=== PATIENT | female | born 1940 | race Caucasian/White ===

== ENCOUNTER → 2018-01-13 03:02 | Outpatient (CLI) | payer MEDICARE, MEDICAID, SELFPAY ==
[2018-01-13 10:33] LABS: INR 2.8 (1.0-3.5); Prothrombin Time 26.8 sec (9.3-10.8)
[2018-01-13 11:37] LABS: Hemoglobin A1C 7.9 % (4.5-6.2)
[2018-01-13 11:47] LABS: TSH (W/Ref FT4) 3.25 uIU/mL (0.358-3.74)
== END ==
PROVIDERS: PCP Family Medicine; Visit Provider Family Medicine
DX: E11.9 Type 2 diabetes mellitus without complications (principal); R94.6 Abnormal results of thyroid function studies; I48.91 Unspecified atrial fibrillation; Z79.01 Long term (current) use of anticoagulants
CPT/HCPCS: 36415; 83036; 84443; 85610

== ENCOUNTER → 2018-01-27 03:41 | Outpatient (CLI) | payer MEDICARE, MEDICAID, SELFPAY ==
[2018-01-27 10:52] LABS: INR 2.5 (1.0-3.5); Prothrombin Time 23.9 sec (9.3-10.8)
== END ==
PROVIDERS: PCP Family Medicine; Visit Provider Family Medicine
DX: I48.91 Unspecified atrial fibrillation (principal); Z79.01 Long term (current) use of anticoagulants
CPT/HCPCS: 36415; 85610

== ENCOUNTER 2018-02-03 01:19 | Outpatient (CLI) | payer MEDICARE, MEDICAID, SELFPAY ==
--- NOTE | 2018-02-03 15:20 | DI.DEXA_ITS ---
SYMPTOMS/DIAGNOSIS: [facility], [facility], Z00.00, [facility], Z78.0 DEXA SCAN: DEXA scan was performed according to the usual protocol. The findings for the lumbar spine scan are a T score of -2.9. Previous examination of April 2015 showed a lumbar T score of -2.7. Left hip scanning shows a T score of -2.2 with left femoral neck T score of - 2.4. Previous examination of April 2015 showed left hip T score of -2.0. Left forearm scanning shows a T score of -2.6. Previous examination of April 2015 showed a forearm T score of -2.7. CONCLUSION: Findings consistent with osteoporosis. The lateral vertebral scanogram shows no definite vertebral compression fracture.
== END 2018-02-03 01:39 ==
PROVIDERS: PCP Family Medicine; Visit Provider Family Medicine
DX: M81.0 Age-related osteoporosis without current pathological fracture (principal); Z78.0 Asymptomatic menopausal state
CPT/HCPCS: 77080

== ENCOUNTER 2018-02-24 02:03 | Outpatient (CLI) | payer MEDICARE, MEDICAID, SELFPAY ==
[2018-02-24 10:55] LABS: INR 1.8 (1.0-3.5); Prothrombin Time 16.9 sec (9.3-10.8)
== END 2018-02-24 02:23 ==
PROVIDERS: PCP Family Medicine; Visit Provider Family Medicine
DX: I48.91 Unspecified atrial fibrillation (principal); Z79.01 Long term (current) use of anticoagulants
CPT/HCPCS: 36415; 85610

== ENCOUNTER 2018-03-24 11:13 | Outpatient (CLI) | payer MEDICARE, MEDICAID, SELFPAY ==
[2018-03-24 11:50] LABS: INR 2.6 (1.0-3.5); Prothrombin Time 24.7 sec (9.3-10.8)
== END 2018-03-24 11:33 ==
LOC: LBO 03-25 11:32 → NCHCN 03-25 15:04
PROVIDERS: PCP Family Medicine; Visit Provider Family Medicine
DX: I48.91 Unspecified atrial fibrillation (principal); Z79.01 Long term (current) use of anticoagulants
CPT/HCPCS: 36415; 85610

== ENCOUNTER 2018-04-27 01:46 | Outpatient (CLI) | payer MEDICARE, MEDICAID, SELFPAY ==
[2018-04-27 10:00] LABS: INR 1.6 (1.0-3.5); Prothrombin Time 15.5 sec (9.3-10.8)
== END 2018-04-27 02:06 ==
PROVIDERS: PCP Family Medicine; Visit Provider Family Medicine
DX: I48.91 Unspecified atrial fibrillation (principal); Z79.01 Long term (current) use of anticoagulants
CPT/HCPCS: 36415; 85610

== ENCOUNTER 2018-05-04 09:58 | Outpatient (CLI) | payer MEDICARE, MEDICAID, SELFPAY ==
[2018-05-04 11:17] LABS: INR 1.8 (1.0-3.5); Prothrombin Time 17.1 sec (9.3-10.8)
== END 2018-05-04 10:18 ==
PROVIDERS: PCP Family Medicine; Visit Provider Family Medicine
DX: I48.91 Unspecified atrial fibrillation (principal); Z79.01 Long term (current) use of anticoagulants
CPT/HCPCS: 36415; 85610

== ENCOUNTER 2018-05-11 02:24 | Outpatient (CLI) | payer MEDICARE, MEDICAID, SELFPAY ==
[2018-05-11 10:41] LABS: INR 1.7 (1.0-3.5); Prothrombin Time 16.5 sec (9.3-10.8)
== END 2018-05-11 02:44 ==
PROVIDERS: PCP Family Medicine; Visit Provider Family Medicine
DX: I48.91 Unspecified atrial fibrillation (principal); Z79.01 Long term (current) use of anticoagulants
CPT/HCPCS: 36415; 85610

== ENCOUNTER 2018-05-17 01:27 | Outpatient (CLI) | payer MEDICARE, MEDICAID, SELFPAY ==
[2018-05-17 10:15] LABS: INR 1.7 (1.0-3.5); Prothrombin Time 16.7 sec (9.3-11.0)
== END 2018-05-17 01:47 ==
PROVIDERS: PCP Family Medicine; Visit Provider Family Medicine
DX: I48.91 Unspecified atrial fibrillation (principal); Z79.01 Long term (current) use of anticoagulants
CPT/HCPCS: 36415; 85610

== ENCOUNTER 2018-05-25 01:11 | Outpatient (CLI) | payer MEDICARE, MEDICAID, SELFPAY ==
[2018-05-25 10:24] LABS: INR 2.9 (1.0-3.5)
== END 2018-05-25 01:31 ==
PROVIDERS: PCP Family Medicine; Visit Provider Family Medicine
DX: I48.91 Unspecified atrial fibrillation (principal); Z79.01 Long term (current) use of anticoagulants
CPT/HCPCS: 36415; 85610

== ENCOUNTER 2018-06-06 00:15 | Outpatient (CLI) | payer MEDICARE, MEDICAID, SELFPAY ==
[2018-06-06 10:38] LABS: INR 2.8 (0.9-1.1); Prothrombin Time 27.9 sec (9.3-11.0)
== END 2018-06-06 00:35 ==
PROVIDERS: PCP Family Medicine; Visit Provider Family Medicine
DX: I48.91 Unspecified atrial fibrillation (principal); Z79.01 Long term (current) use of anticoagulants
CPT/HCPCS: 36415; 85610

== ENCOUNTER 2018-06-15 02:28 | Outpatient (CLI) | payer MEDICARE, MEDICAID, SELFPAY ==
[2018-06-15 11:48] LABS: INR 3.1 (0.9-1.1); Prothrombin Time 31.5 sec (9.3-11.0)
== END 2018-06-15 02:48 ==
PROVIDERS: PCP Family Medicine; Visit Provider Family Medicine
DX: I48.91 Unspecified atrial fibrillation (principal); Z79.01 Long term (current) use of anticoagulants
CPT/HCPCS: 36415; 85610

== ENCOUNTER 2018-07-12 00:08 | Outpatient (CLI) | payer MEDICARE, MEDICAID, SELFPAY ==
[2018-07-12 10:16] LABS: INR 2.4 (0.9-1.1); Prothrombin Time 23.8 sec (9.3-11.0)
== END 2018-07-12 00:28 ==
PROVIDERS: PCP Family Medicine; Visit Provider Family Medicine
DX: I48.91 Unspecified atrial fibrillation (principal); Z79.01 Long term (current) use of anticoagulants
CPT/HCPCS: 36415; 85610

== ENCOUNTER 2018-07-19 00:08 | Outpatient (CLI) | payer MEDICARE, MEDICAID, SELFPAY ==
[2018-07-19 10:21] LABS: INR 2.6 (0.9-1.1); Prothrombin Time 25.9 sec (9.3-11.0)
== END 2018-07-19 00:28 ==
PROVIDERS: PCP Family Medicine; Visit Provider Family Medicine
DX: I48.91 Unspecified atrial fibrillation (principal); Z79.01 Long term (current) use of anticoagulants
CPT/HCPCS: 36415; 85610

== ENCOUNTER 2018-08-17 07:05 | Outpatient (CLI) | payer MEDICARE, MEDICAID, SELFPAY ==
[2018-08-17 08:45] LABS: INR 2.6 (0.9-1.1); Prothrombin Time 25.8 sec (9.3-11.0)
[2018-08-17 09:17] LABS: Hemoglobin A1C 6.1 % (4.5-6.2)
[2018-08-17 15:28] LABS: Anion Gap 11.8 mmol/L (3-11); BUN 24 mg/dL (7-18); CO2 24.2 mmol/L (21.0-32.0); Calcium 9.1 mg/dL (8.5-10.1); Chloride 101 mmol/L (98-107); Estimated GFR 47.91 (mL/min/1.73m2); Glucose 90 mg/dL (70-100); Potassium 3.7 mmol/L (3.5-5.1); Sodium 137 mmol/L (136-145)
== END 2018-08-17 07:25 ==
PROVIDERS: PCP Family Medicine; Visit Provider Family Medicine
DX: I10 Essential (primary) hypertension (principal); E11.9 Type 2 diabetes mellitus without complications; I48.91 Unspecified atrial fibrillation; Z79.01 Long term (current) use of anticoagulants
CPT/HCPCS: 36415; 80048; 83036; 83735; 85610

== ENCOUNTER 2018-08-27 16:46 | Outpatient (REF) | payer MEDICARE, MEDICAID, SELFPAY ==
[2018-08-27 19:44] LABS: COMMENT (LAB VIEW ONLY) 58.94 mg/dL; Microalb ug/mg Crea 33.9 ug/mg Cr
== END 2018-08-27 17:06 ==
LOC: NCHCN 16:46
PROVIDERS: PCP Family Medicine; Visit Provider Family Medicine
DX: E11.9 Type 2 diabetes mellitus without complications (principal)
CPT/HCPCS: 82043; 82570

== ENCOUNTER 2018-09-23 01:57 | Outpatient (CLI) | payer MEDICARE, MEDICAID, SELFPAY ==
[2018-09-23 10:46] LABS: INR 3.3 (0.9-1.1)
[2018-09-23 10:50] LABS: Anion Gap 10.7 mmol/L (3-11); BUN 27 mg/dL (7-18); CO2 26.3 mmol/L (21.0-32.0); CREATININE 0.88 mg/dL (0.55-1.02); Calcium 8.5 mg/dL (8.5-10.1); Chloride 104 mmol/L (98-107); Glucose 95 mg/dL (70-100); Potassium 3.8 mmol/L (3.5-5.1); Sodium 141 mmol/L (136-145)
== END 2018-09-23 02:17 ==
PROVIDERS: PCP Family Medicine; Visit Provider Family Medicine
DX: E11.9 Type 2 diabetes mellitus without complications (principal); I10 Essential (primary) hypertension; I48.91 Unspecified atrial fibrillation; Z79.01 Long term (current) use of anticoagulants
CPT/HCPCS: 36415; 80048; 85610

== ENCOUNTER 2018-10-23 01:15 | Outpatient (CLI) | payer MEDICARE, MEDICAID, SELFPAY ==
[2018-10-23 10:56] LABS: INR 2.3 (0.9-1.1); Prothrombin Time 23.5 sec (9.3-11.0)
== END 2018-10-23 01:35 ==
PROVIDERS: PCP Family Medicine; Visit Provider Family Medicine
DX: I48.91 Unspecified atrial fibrillation (principal); Z79.01 Long term (current) use of anticoagulants
CPT/HCPCS: 36415; 85610

== ENCOUNTER 2018-11-20 09:15 | Outpatient (CLI) | payer MEDICARE, MEDICAID, SELFPAY ==
[2018-11-20 11:34] LABS: INR 2.4 (0.9-1.1); Prothrombin Time 24.4 sec (9.3-11.0)
== END 2018-11-20 09:35 ==
PROVIDERS: PCP Family Medicine; Visit Provider Family Medicine
DX: I48.91 Unspecified atrial fibrillation (principal); Z79.01 Long term (current) use of anticoagulants
CPT/HCPCS: 36415; 85610

== ENCOUNTER 2018-12-17 01:56 | Outpatient (CLI) | payer MEDICARE, MEDICAID, SELFPAY ==
[2018-12-17 10:13] LABS: INR 3.1 (0.9-1.1); Prothrombin Time 31.7 sec (9.3-11.0)
== END 2018-12-17 02:16 ==
PROVIDERS: PCP Family Medicine; Visit Provider Family Medicine
DX: I48.91 Unspecified atrial fibrillation (principal); Z79.01 Long term (current) use of anticoagulants
CPT/HCPCS: 36415; 85610

== ENCOUNTER 2019-01-22 03:54 | Outpatient (CLI) | payer MEDICARE, MEDICAID, SELFPAY ==
[2019-01-22 11:16] LABS: INR 3.2 (0.9-1.1); Prothrombin Time 31.9 sec (9.3-11.0)
== END 2019-01-22 04:14 ==
PROVIDERS: PCP Family Medicine; Visit Provider Family Medicine
DX: I48.91 Unspecified atrial fibrillation (principal); Z79.01 Long term (current) use of anticoagulants
CPT/HCPCS: 36415; 85610

== ENCOUNTER 2019-02-18 01:32 | Outpatient (CLI) | payer MEDICARE, MEDICAID, SELFPAY ==
[2019-02-18 10:22] LABS: INR 3.7 (0.9-1.1); Prothrombin Time 37.7 sec (9.3-11.0)
== END 2019-02-18 01:52 ==
PROVIDERS: PCP Family Medicine; Visit Provider Family Medicine
DX: I48.91 Unspecified atrial fibrillation (principal); Z79.01 Long term (current) use of anticoagulants
CPT/HCPCS: 36415; 85610

== ENCOUNTER 2019-03-04 01:24 | Outpatient (CLI) | payer MEDICARE, MEDICAID, SELFPAY ==
[2019-03-04 10:34] LABS: INR 3.6 (0.9-1.1)
== END 2019-03-04 01:44 ==
PROVIDERS: PCP Family Medicine; Visit Provider Family Medicine
DX: I48.91 Unspecified atrial fibrillation (principal); Z79.01 Long term (current) use of anticoagulants
CPT/HCPCS: 36415; 85610

== ENCOUNTER 2019-03-18 01:22 | Outpatient (CLI) | payer MEDICARE, MEDICAID, SELFPAY ==
[2019-03-18 10:33] LABS: Prothrombin Time 39.7 sec (9.3-11.0)
[2019-03-18 10:59] LABS: INR 4.1 (0.9-1.1)
== END 2019-03-18 01:42 ==
PROVIDERS: PCP Family Medicine; Visit Provider Family Medicine
DX: I48.91 Unspecified atrial fibrillation (principal); Z79.01 Long term (current) use of anticoagulants
CPT/HCPCS: 36415; 85610

== ENCOUNTER 2019-03-25 01:43 | Outpatient (CLI) | payer MEDICARE, MEDICAID, SELFPAY ==
[2019-03-25 10:44] LABS: INR 2.4 (0.9-1.1); Prothrombin Time 23.3 sec (9.3-11.0)
== END 2019-03-25 02:03 ==
PROVIDERS: PCP Family Medicine; Visit Provider Family Medicine
DX: I48.91 Unspecified atrial fibrillation (principal); Z79.01 Long term (current) use of anticoagulants
CPT/HCPCS: 36415; 85610

== ENCOUNTER 2019-04-07 14:15 | Outpatient (CLI) | payer MEDICARE, MEDICAID, SELFPAY ==
[2019-04-07 14:47] LABS: INR 2.8 (0.9-1.1)
== END 2019-04-07 14:35 ==
PROVIDERS: PCP Family Medicine; Visit Provider Family Medicine
DX: I48.91 Unspecified atrial fibrillation (principal); Z79.01 Long term (current) use of anticoagulants
CPT/HCPCS: 36415; 85610

== ENCOUNTER 2019-05-07 01:30 | Outpatient (CLI) | payer MEDICARE, MEDICAID, SELFPAY ==
[2019-05-07 10:47] LABS: Prothrombin Time 29.3 sec (9.3-11.0)
== END 2019-05-07 01:50 ==
PROVIDERS: PCP Family Medicine; Visit Provider Family Medicine
DX: I48.91 Unspecified atrial fibrillation (principal); Z79.01 Long term (current) use of anticoagulants
CPT/HCPCS: 36415; 85610

== ENCOUNTER 2019-06-04 01:52 | Outpatient (CLI) | payer MEDICARE, MEDICAID, SELFPAY ==
[2019-06-04 11:51] LABS: Prothrombin Time 40.9 sec (9.3-11.0)
[2019-06-04 12:53] LABS: INR 4.2 (0.9-1.1)
== END 2019-06-04 02:12 ==
PROVIDERS: PCP Family Medicine; Visit Provider Family Medicine
DX: I48.91 Unspecified atrial fibrillation (principal); Z79.01 Long term (current) use of anticoagulants
CPT/HCPCS: 36415; 85610

== ENCOUNTER 2019-06-10 14:58 | Outpatient (CLI) | payer MEDICARE, MEDICAID, SELFPAY ==
[2019-06-10 15:40] LABS: Prothrombin Time 44.6 sec (9.3-11.0)
[2019-06-10 15:44] LABS: INR 4.6 (0.9-1.1)
== END 2019-06-10 15:18 ==
PROVIDERS: PCP Family Medicine; Visit Provider Family Medicine
DX: I48.91 Unspecified atrial fibrillation (principal); Z79.01 Long term (current) use of anticoagulants
CPT/HCPCS: 36415; 85610

== ENCOUNTER 2019-06-18 11:36 | Outpatient (CLI) | payer MEDICARE, MEDICAID, SELFPAY ==
[2019-06-18 12:17] LABS: INR 2.6 (0.9-1.1); Prothrombin Time 25.2 sec (9.3-11.0)
== END 2019-06-18 11:56 ==
PROVIDERS: PCP Family Medicine; Visit Provider Family Medicine
DX: I48.91 Unspecified atrial fibrillation (principal); Z79.01 Long term (current) use of anticoagulants
CPT/HCPCS: 36415; 85610

== ENCOUNTER 2019-07-05 15:28 | Outpatient (REF) | payer MEDICARE, MEDICAID, SELFPAY ==
[2019-07-05 18:27] LABS: COMMENT (LAB VIEW ONLY) 23.86 mg/dL; Microalb ug/mg Crea 34.8 ug/mg Cr
== END 2019-07-05 15:48 ==
LOC: NCHCN 15:28
PROVIDERS: PCP Family Medicine; Visit Provider Family Medicine
DX: E11.9 Type 2 diabetes mellitus without complications (principal)
CPT/HCPCS: 82043; 82570

== ENCOUNTER 2019-07-13 08:18 | Outpatient (CLI) | payer MEDICARE, MEDICAID, SELFPAY ==
[2019-07-13 10:36] LABS: INR 1.6 (0.9-1.1); Prothrombin Time 15.9 sec (9.3-11.0)
== END 2019-07-13 08:38 ==
PROVIDERS: PCP Family Medicine; Visit Provider Family Medicine
DX: I48.91 Unspecified atrial fibrillation (principal); Z79.01 Long term (current) use of anticoagulants
CPT/HCPCS: 36415; 85610

== ENCOUNTER 2019-07-20 02:20 | Outpatient (CLI) | payer MEDICARE, MEDICAID, SELFPAY ==
[2019-07-20 11:22] LABS: INR 2.6 (0.9-1.1); Prothrombin Time 25.7 sec (9.3-11.0)
== END 2019-07-20 02:40 ==
PROVIDERS: PCP Family Medicine; Visit Provider Family Medicine
DX: I48.91 Unspecified atrial fibrillation (principal); Z79.01 Long term (current) use of anticoagulants
CPT/HCPCS: 36415; 85610

== ENCOUNTER 2019-08-10 01:50 | Outpatient (CLI) | payer MEDICARE, MEDICAID, SELFPAY ==
[2019-08-10 10:16] LABS: Prothrombin Time 40.2 sec (9.3-11.0)
[2019-08-10 10:48] LABS: INR 4.1 (0.9-1.1)
== END 2019-08-10 02:10 ==
PROVIDERS: PCP Family Medicine; Visit Provider Family Medicine
DX: I48.91 Unspecified atrial fibrillation (principal); Z79.01 Long term (current) use of anticoagulants
CPT/HCPCS: 36415; 85610

== ENCOUNTER 2019-08-17 14:30 | Outpatient (CLI) | payer MEDICARE, MEDICAID, SELFPAY ==
[2019-08-17 10:06] LABS: INR 2.3 (0.9-1.1)
== END 2019-08-17 14:50 ==
PROVIDERS: PCP Family Medicine; Visit Provider Family Medicine
DX: I48.91 Unspecified atrial fibrillation (principal); Z79.01 Long term (current) use of anticoagulants
CPT/HCPCS: 36415; 85610

== ENCOUNTER 2019-08-23 11:49 | Outpatient (CLI) | payer MEDICARE, MEDICAID, SELFPAY ==
[2019-08-23 14:19] LABS: INR 1.6 (0.9-1.1); Prothrombin Time 15.6 sec (9.3-11.0)
== END 2019-08-23 12:09 ==
PROVIDERS: PCP Family Medicine; Visit Provider Family Medicine
DX: I48.91 Unspecified atrial fibrillation (principal); Z79.01 Long term (current) use of anticoagulants
CPT/HCPCS: 36415; 85610

== ENCOUNTER 2019-08-29 10:38 | Outpatient (CLI) | payer MEDICARE, MEDICAID, SELFPAY ==
[2019-08-29 11:09] LABS: INR 2.2 (0.9-1.1); Prothrombin Time 21.4 sec (9.3-11.0)
== END 2019-08-29 10:58 ==
PROVIDERS: PCP Family Medicine; Visit Provider Family Medicine
DX: I48.91 Unspecified atrial fibrillation (principal); Z79.01 Long term (current) use of anticoagulants
CPT/HCPCS: 36415; 85610

== ENCOUNTER 2019-09-25 00:35 | Emergency (ER) | payer MEDICARE, MEDICAID, SELFPAY ==
[2019-09-25 00:36] VITALS: BP 156/113; PULSE 63; RESP 16; TEMP 36.6; O2SAT 98
--- NOTE | 2019-09-25 00:40 | W.ED.GENAD ---
Discharge Plan Disposition Patient Disposition: HOME Condition: Stable Discharge Details Chief Complaint: Epistaxis Clinical Impression: Epistaxis Primary Care Provider: Mell Cueto ED Provider: Steve Paula Discharge Instructions Instructions: Nosebleed (ED) Additional Instructions: hold your next 2 doses of coumadin. Return Friday for removal of packing and recheck of your INR if you have increased bleeding or feel chest pain, difficulty breathing or lightheaded return to the emergency department Medical Decision Making 79 yo female with hx of afib on coumadin comes in with right sided nose bleed. She states it started spontaneously this morning and it stopped but then spontaneously started again this evening. Denies dyspnea, trauma, chest pain, lightheadedness. She has slow oozing of blood from the right nare without obvious source. Unable to stop with pressure and afrin so rhino rocket placed with success uneventfully. Suspect anterior bleed, will check INR and monitor. INR is over 4, remains stable without any bleeding. Will have her hold next 2 doses of coumadin and return Friday morning for removal of rhino rocket and recheck of inr Differential Diagnosis Differential Diagnosis: anterior vs posterior epistaxis HPI General Mode of arrival: EMS. Date/Time Provider Initiated Documentation: 09/25/19 00:39. Limitations to Documentation: no limitations. Information obtained by: patient. History of Present Illness 79 year old F presents to the emergency department with the chief complaint of nose bleed, described as moderate, and it has been constant. No relieving factors improve symptom(s), No exacerbating factors reported . Patient did receive the following treatments prior to arrival, none General Stated Complaint: Epistaxis SANDRA: 3 Review of Systems All systems reviewed & are unremarkable except as noted in HPI and below Constitutional Constitutional: Denies chills and Denies fever(s) Cardiovascular Cardiovascular: Denies chest pain and Denies dyspnea Respiratory Respiratory: Denies cough and Denies dyspnea Gastrointestinal Gastrointestinal: Denies abdominal pain, Denies nausea and Denies vomiting Musculoskeletal Musculoskeletal: Denies joint swelling ON LICENSE OF [facility] Social History Smoking/Tobacco Use Status: Never Drug use: Never Substance use type: does not use Exam Const General: no acute distress Orientation: alert HENMT Head: normal to inspection Ears: external ears normal General nose exam: no nasal polyps Mouth: moist mucous membranes Eyes General: appearance normal, both eyes and all related structures Neck Neck: normal visual inspection Resp Effort & Inspection: normal respiratory effort and able to speak in complete sentences Cardio Rate: regular rate Skin General skin exam: no rashes or lesions noted Neuro General: patient alert and patient oriented x3 Extrem General: normal to inspection Psych Mental Status: mental status grossly normal Course Vital Signs Vital signs: Vital Signs Temperature 36.6 C 09/25/19 00:36 Pulse 63 09/25/19 00:36 Respiratory Rate 16 09/25/19 00:36 Blood Pressure 156/113 H 09/25/19 00:36 Pulse Oximetry 98 09/25/19 00:36 Temperature 36.6 C 09/25/19 00:36 Temperature Source Temporal Artery Scan 09/25/19 00:36 Pulse 63 09/25/19 00:36 Respiratory Rate 16 09/25/19 00:36 Respiratory Effort 09/25/19 00:39 Blood Pressure 156/113 H 09/25/19 00:36 Blood Pressure Position Sitting 09/25/19 00:36 Pulse Oximetry 98 09/25/19 00:36 Procedures Epistaxis Control Time Out Performed: Yes Nostril: right Direct Inspection: yes Clots Removed by: blowing nose Cautery Used: none Device Inserted: other (rhino rocket 7.5) Patient Tolerated Procedure: well
[2019-09-25 00:47] LABS: HCT 39.5 % (36.0-46.0); HGB 12.7 g/dL (12.0-15.5); Mean Corp. HGB Concentration 32.2 g/dL (32.0-36.0); Mean Corpuscular Hemoglobin 28.7 pg (27.0-33.0); Mean Corpuscular Volume 89.4 fL (80-95); Mean Platelet Volume 9.9 fL (8.0-11.0); Platelet Count 285 x1000/uL (130-400); RBC 4.42 m/cumm (4.00-5.20); RBC Distribution Width 14.3 % (11.7-14.6); White Blood Cell Count 9.98 k/cumm (4.4-10.8)
[2019-09-25 01:13] LABS: Prothrombin Time 42.7 sec (9.3-11.0)
[2019-09-25 01:15] LABS: INR 4.4 (0.9-1.1)
== END 2019-09-25 01:40 | disposition home or self-care (01) ==
PROVIDERS: Emergency Provider Emergency Medicine; PCP Family Medicine
DX: R04.0 Epistaxis (principal); I48.91 Unspecified atrial fibrillation; Z79.01 Long term (current) use of anticoagulants
CPT/HCPCS: 30901; 85027; 99283; 85610

== ENCOUNTER 2019-09-27 10:04 | Emergency (ER) | payer MEDICARE, MEDICAID, SELFPAY ==
[2019-09-27 10:10] VITALS: BP 127/75; PULSE 67; RESP 16; TEMP 36.4
--- NOTE | 2019-09-27 10:30 | ED.GENADUL_ITS ---
Discharge Plan Disposition Patient Disposition: HOME Condition: Stable Discharge Details Chief Complaint: Recheck Clinical Impression: Epistaxis, Elevated INR Primary Care Provider: Mell Cueto ED Provider: Merary Watson Home Meds and New Rx's Prescriptions: Continued albuterol sulfate [ProAir HFA] 90 mcg/actuation Hfa Aerosol Inhaler 2 puff inhalation QID RF: 0 fluticasone propion-salmeterol [Advair Diskus] 500-50 mcg/dose blister with device 1 inh INHALATION BID RF: 0 atenolol 50 mg tablet 25 mg PO QAM RF: 0 furosemide 80 mg tablet 80 mg PO QAM RF: 0 losartan 100 mg tablet 100 mg PO QAM RF: 0 cetirizine 10 mg tablet 10 mg PO QAM RF: 0 cholecalciferol (vitamin D3) [Vitamin D3] 25 mcg (1,000 unit) tablet 1,000 unit PO QAM RF: 0 atorvastatin [Lipitor] 10 mg Tablet 10 mg PO QPM RF: 0 potassium chloride 10 mEq tablet,ER particles/crystals 10 meq PO QAM RF: 0 zolpidem 5 mg tablet 5 mg PO HS RF: 0 warfarin 5 mg tablet 2.5 - 5 mg PO DIRECTED PRNRF: 0 glipizide 10 mg tablet extended release 24hr 10 mg PO QAM RF: 0 metformin 500 mg tablet extended release 24 hr 500 mg PO DAILY RF: 0 albuterol sulfate [Ventolin HFA] 90 mcg/actuation HFA aerosol inhaler INHALATION PRN PRNRF: 0 Levemir FlexTouch U-100 Insuln 100 unit/mL (3 mL) insulin pen SUBCUT HS RF: 0 (DME) pen needle, diabetic [BD Ultra-Fine Mini Pen Needle] 31 gauge x 3/16 needle MISCELLANEOUS RF: 0 magnesium oxide 400 mg magnesium Tablet 400 mg PO DAILY RF: 0 albuterol sulfate [Ventolin HFA] 90 mcg/actuation HFA aerosol inhaler 2 puff INHALATION Q6H RF: 0 fluticasone propionate [Flonase Allergy Relief] 50 mcg/actuation [place],Suspension 2 spray INTRANASAL DAILY PRNRF: 0 fluticasone propion-salmeterol [Advair Diskus] 500-50 mcg/dose blister with device 1 inh INHALATION BID RF: 0 mupirocin 2 % ointment 1 applic TOPICAL BID PRNRF: 0 alendronate 70 mg tablet 70 mg PO DIRECTED RF: 0 Discharge Instructions Instructions: Nosebleed (ED) Additional Instructions: Please return immediately to the emergency department if you develop any new or worsening symptoms (including, fever, redness of your nose, increasing pain in your nose, foul odor or discharge from around the packing, return of bleeding, if you begin to feel unwell, if your condition does not improve as expected, or if you become otherwise concerned. As we discussed it is extremely important that you return immediately to the emergency department should she develop . Please return to the emergency department on Friday for reevaluation for packing removal as we discussed. Please do not take your warfarin until you are seen in the emergency department on Friday as we discussed. It is extremely important that you call soon as possible to make an appointment to be seen in follow-up for this visit by your primary care doctor. Referrals: Mell Cueto MD [Primary Care Provider] - Bryan Mesa MD [[facility] STAFF PHYSICIAN] - Medical Decision Making Sushma Jones is an 79 y/o woman with h/o afib on coumadin, asthma, diabetes, HTN who presented to the emergency department for removal of nasal packing without complaint. On exam Pt is well and non-toxic appearing, no active bleeding or signs of infection. Exam/hx not c/w cellulitis, persistent bleeding, impending airway compromise, sepsis, toxic shock syndrome, other acute life threatening emergency. Concern for recurrence of bleeding if packing removed with elevated INR, will obtain labs. INR 3.9, therapeutic range for Pt 2.5-3.5. I discussed Pt presentation and results with Dr. Mesa of ENT over the phone, who recommended Pt not have packing removed today, recommends packing removal 09/28 in ED after re-check of INR with holding coumadin until that visit. Dr. Mesa recommends no abx at this time given no apparent infection and concern for possible contribution to elevated INR. I had a lengthy discussion with Patient regarding return to emergency department precautions, home care, and importance of outpatient follow-up and f/u here in 2 days for INR recheck and packing removal. I discussed antibiotic non-usage at this time and specific symptoms for which to return immediately to the emergency department. Pt verbalizes understanding of the plan and is amenable. Patient discharged to home with clear plan for outpatient follow-up. All questions were answered. Disposition decision was made weighing the risks and benefits of hospitalization versus outpatient treatment, the risk for further decompensation, and the patient's wishes. Medical Records Medical records reviewed: Yes I reviewed the patient's medical records. Lab Data Lab results reviewed: Yes I reviewed the patient's lab results. Labs: Laboratory Tests Range/Units 09/27/19 09/27/19 10:55 10:55 WBC (4.4-10.8) k/cumm 8.87 RBC (4.00-5.20) m/cumm 4.42 Hgb (12.0-15.5) g/dL 12.6 Hct (36.0-46.0) % 39.8 MCV (80-95) fL 90.0 MCH (27.0-33.0) pg 28.5 MCHC (32.0-36.0) g/dL 31.7 L RDW (11.7-14.6) % 14.4 Plt Count (130-400) x1000/uL 290 MPV (8.0-11.0) fL 9.8 PT (9.3-11.0) sec 37.4 H INR (0.9-1.1) 3.9 H HPI General Mode of arrival: ambulatory . Date/Time Provider Initiated Documentation: 09/27/19 10:07 . Limitations to Documentation: no limitations . Information obtained by: patient, RN notes reviewed and old records reviewed . HPI Narrative: Sushma Jones is an 79-year-old woman with history of diabetes, hypertension, atrial fibrillation on Coumadin, coronary artery disease, hyperlipidemia presenting to the emergency department for removing of nasal packing. Per patient and record review, patient was seen here 09/24 for epistaxis. Patient reports that onset of nosebleed was spontaneous without trauma or other known inciting factor. Patient had anterior nasal packing placed at that visit. Patient had elevated INR, was instructed to not take her Coumadin until being seen here on 09/26 for reevaluation and nasal packing removal. Patient reports that she has had no symptoms other than some discomfor t from packing since packing was placed. She denies any further nose bleeding, swallowing of blood, pain, fever, vomiting/diarrhea, numbness, weakness. Patient reports that she has been eating and drinking as usual and going about her daily activities as usual. Patient reports that she has not taken her Coumadin since being seen in the emergency department on 09/24. Related Data Home Medications Medication Instructions Recorded Confirmed Levemir FlexTouch U-100 Insuln unit SUBCUT HS 09/27/19 albuterol sulfate [ProAir HFA] 2 puff INHALATION QID 09/27/19 09/27/19 albuterol sulfate [Ventolin HFA] 2 puff INHALATION Q6H 09/27/19 09/27/19 albuterol sulfate [Ventolin HFA] puff INHALATION PRN PRN 09/27/19 alendronate 70 mg PO DIRECTED 09/27/19 09/27/19 atenolol 25 mg PO QAM 09/27/19 09/27/19 atorvastatin [Lipitor] 10 mg PO QPM 09/27/19 09/27/19 cetirizine 10 mg PO QAM 09/27/19 09/27/19 cholecalciferol (vitamin D3) 1,000 unit PO QAM 09/27/19 09/27/19 [Vitamin D3] fluticasone propion-salmeterol 1 inh INHALATION BID 09/27/19 09/27/19 [Advair Diskus] fluticasone propion-salmeterol 1 inh INHALATION BID 09/27/19 09/27/19 [Advair Diskus] fluticasone propionate [Flonase 2 spray INTRANASAL DAILY PRN 09/27/19 09/27/19 Allergy Relief] furosemide 80 mg PO QAM 09/27/19 09/27/19 glipizide 10 mg PO QAM 09/27/19 09/27/19 losartan 100 mg PO QAM 09/27/19 09/27/19 magnesium oxide 400 mg PO DAILY 09/27/19 09/27/19 metformin 500 mg PO DAILY 09/27/19 09/27/19 mupirocin 1 applic TOPICAL BID PRN 09/27/19 09/27/19 pen needle, diabetic [BD 09/27/19 09/27/19 Ultra-Fine Mini Pen Needle] potassium chloride 10 meq PO QAM 09/27/19 09/27/19 warfarin 2.5 - 5 mg PO DIRECTED PRN 09/27/19 09/27/19 zolpidem 5 mg PO HS 09/27/19 09/27/19 Allergies Allergy/AdvReac Type Severity Reaction Status Date / Time Penicillins AdvReac Unknown Unverified 09/27/19 10:23 General Stated Complaint: Recheck SANDRA: 4 Review of Systems Narrative: Constitutional: denies fevers Eyes: denies eye pain ENT: denies ear pain, sore throat, nosebleeds, reports mild aching at site of packing right nare Cardiovascular: denies chest pain Respiratory: denies SOB, cough GI: denies abdominal pain, vomiting, diarrhea : denies flank pain MSK: denies back pain, neck pain, arthralgias, myalgias Skin: denies rash Neuro: denies headaches, numbness, weakness PFSH Social History Smoking/Tobacco Use Status: Never Drug use: Never Substance use type: does not use Do you feel safe at home: Yes Do you feel safe in your relationship?: Yes Additional Social history: son lives nearby Exam Narrative Exam Narrative: Constitutional: well and [id number], pleasant, conversing normally HENT: head atraumatic/normocephalic/normal inspection, mucous membranes moist, no drooling or handling of secretions, packing in place right nare with scant dried blood, no discharge, no appreciable odor, no erythema of the nose or face Eyes: conjunctiva normal, sclera normal, pupils 3mm b/l Neck: no stridor, normal ROM, trachea midline Chest: normal inspection Resp: normal work of breathing, no respiratory distress Cardio: normal rate, normal rhythm Skin: warm, dry, normal color, no rash Neuro: alert, not altered, grossly non-focal, normal tone Ext: moving all extremities equally Psych: normal mood, normal affect, normal behavior Course Vital Signs Vital signs: Vital Signs Temperature 36.4 C L 09/27/19 10:10 Pulse 67 09/27/19 10:10 Respiratory Rate 16 09/27/19 10:10 Blood Pressure 127/75 09/27/19 10:10 Temperature 36.4 C L 09/27/19 10:10 Temperature Source Skin 09/27/19 10:10 Pulse 67 09/27/19 10:10 Respiratory Rate 16 09/27/19 10:10 Respiratory Effort 09/27/19 10:21 Blood Pressure 127/75 09/27/19 10:10 Blood Pressure Position Sitting 09/27/19 10:10 Oxygen Delivery Method Room Air 09/27/19 10:10 Oxygen Flow Rate 0 09/27/19 10:10 Pain Level 0 09/27/19 10:10
[2019-09-27 11:06] LABS: HCT 39.8 % (36.0-46.0); HGB 12.6 g/dL (12.0-15.5); Mean Corp. HGB Concentration 31.7 g/dL (32.0-36.0); Mean Corpuscular Hemoglobin 28.5 pg (27.0-33.0); Mean Platelet Volume 9.8 fL (8.0-11.0); Platelet Count 290 x1000/uL (130-400); RBC 4.42 m/cumm (4.00-5.20); RBC Distribution Width 14.4 % (11.7-14.6); White Blood Cell Count 8.87 k/cumm (4.4-10.8)
[2019-09-27 11:17] LABS: INR 3.9 (0.9-1.1); Prothrombin Time 37.4 sec (9.3-11.0)
== END 2019-09-27 11:50 | disposition home or self-care (01) ==
PROVIDERS: Emergency Provider Student in an Organized Health Care Education/Training Program; PCP Family Medicine
DX: R04.0 Epistaxis (principal); R79.1 Abnormal coagulation profile; I48.91 Unspecified atrial fibrillation; Z79.01 Long term (current) use of anticoagulants; I10 Essential (primary) hypertension; E11.9 Type 2 diabetes mellitus without complications; Z79.4 Long term (current) use of insulin
CPT/HCPCS: 36415; 85027; 99283; 85610

== ENCOUNTER 2019-09-29 11:26 | Emergency (ER) | payer MEDICARE, MEDICAID, SELFPAY ==
[2019-09-29 11:29] VITALS: BP 148/60; PULSE 81; TEMP 36.7; O2SAT 97
--- NOTE | 2019-09-29 12:03 | W.ED.GENAD ---
Discharge Plan Disposition Patient Disposition: HOME Condition: Stable Discharge Details Chief Complaint: GenMedical Clinical Impression: Encounter for removal of nasal packing Primary Care Provider: Mell Cueto ED Provider: Tab Kellogg Home Meds and New Rx's Prescriptions: No Action albuterol sulfate [ProAir HFA] 90 mcg/actuation Hfa Aerosol Inhaler 2 puff inhalation QID RF: 0 fluticasone propion-salmeterol [Advair Diskus] 500-50 mcg/dose blister with device 1 inh INHALATION BID RF: 0 atenolol 50 mg tablet 25 mg PO QAM RF: 0 furosemide 80 mg tablet 80 mg PO QAM RF: 0 losartan 100 mg tablet 100 mg PO QAM RF: 0 cetirizine 10 mg tablet 10 mg PO QAM RF: 0 cholecalciferol (vitamin D3) [Vitamin D3] 25 mcg (1,000 unit) tablet 1,000 unit PO QAM RF: 0 atorvastatin [Lipitor] 10 mg Tablet 10 mg PO QPM RF: 0 potassium chloride 10 mEq tablet,ER particles/crystals 10 meq PO QAM RF: 0 zolpidem 5 mg tablet 5 mg PO HS RF: 0 warfarin 5 mg tablet 2.5 - 5 mg PO DIRECTED PRNRF: 0 glipizide 10 mg tablet extended release 24hr 10 mg PO QAM RF: 0 metformin 500 mg tablet extended release 24 hr 500 mg PO DAILY RF: 0 albuterol sulfate [Ventolin HFA] 90 mcg/actuation HFA aerosol inhaler INHALATION PRN PRNRF: 0 Levemir FlexTouch U-100 Insuln 100 unit/mL (3 mL) insulin pen SUBCUT HS RF: 0 (DME) pen needle, diabetic [BD Ultra-Fine Mini Pen Needle] 31 gauge x 3/16 needle MISCELLANEOUS RF: 0 magnesium oxide 400 mg magnesium Tablet 400 mg PO DAILY RF: 0 albuterol sulfate [Ventolin HFA] 90 mcg/actuation HFA aerosol inhaler 2 puff INHALATION Q6H RF: 0 fluticasone propionate [Flonase Allergy Relief] 50 mcg/actuation [place],Suspension 2 spray INTRANASAL DAILY PRNRF: 0 fluticasone propion-salmeterol [Advair Diskus] 500-50 mcg/dose blister with device 1 inh INHALATION BID RF: 0 mupirocin 2 % ointment 1 applic TOPICAL BID PRNRF: 0 alendronate 70 mg tablet 70 mg PO DIRECTED RF: 0 Discharge Instructions Additional Instructions: Nasal packing was removed without difficulty. Your INR has come down which means that you should start taking your Coumadin as directed. I would like you to reach out to your primary care provider so that you may have your INR checked in the next few days to be sure it is then at an appropriate level. Please watch for new or worsening symptoms and return to the ER for any concerns Discharge Data Discharge Date/Time-TO BE ENTERED AT DEPARTURE: 09/29/19 13:07 Medical Decision Making Patient presents for nasal packing removal that was placed 2 days ago. She is currently asymptomatic. Her INR was supratherapeutic during her visit 2 days ago. Will repeat INR today and if appropriate will remove packing. Patient comfortable this plan INR resulted, will remove nasal packing Nasal packing removed without difficulty Patient observed in the ER for over 20 minutes, no bleeding. Patient has no additional questions or concerns and is comfortable discharge. She will begin taking her Coumadin once again and will reach out to her primary care provider later today or tomorrow to discuss outpatient INR testing in the next few days to be sure her INR is appropriate Medical Records Medical records reviewed: Yes I reviewed the patient's medical records. Lab Data Lab results reviewed: Yes I reviewed the patient's lab results. Lab results narrative: Laboratory Tests Range/Units 09/29/19 11:47 PT (9.3-11.0) sec 15.9 H D INR (0.9-1.1) 1.6 H D HPI General Mode of arrival: ambulatory. Date/Time Provider Initiated Documentation: 09/29/19 11:32. Limitations to Documentation: no limitations. Information obtained by: patient. HPI Narrative: 79-year-old female with history of asthma, hypertension, diabetes, atrial fibrillation and taking Coumadin who presents today to have her right nare nasal packing removed. She was seen in the ER 2 days ago, packing placed and reports being asymptomatic since that time. She has not taken her Coumadin since that time. At this time she has no additional concerns or complaints, just requesting that the packing be removed Related Data Home Medications Medication Instructions Recorded Confirmed Levemir FlexTouch U-100 Insuln unit SUBCUT HS 09/27/19 albuterol sulfate [ProAir HFA] 2 puff INHALATION QID 09/27/19 09/27/19 albuterol sulfate [Ventolin HFA] 2 puff INHALATION Q6H 09/27/19 09/27/19 albuterol sulfate [Ventolin HFA] puff INHALATION PRN PRN 09/27/19 alendronate 70 mg PO DIRECTED 09/27/19 09/27/19 atenolol 25 mg PO QAM 09/27/19 09/27/19 atorvastatin [Lipitor] 10 mg PO QPM 09/27/19 09/27/19 cetirizine 10 mg PO QAM 09/27/19 09/27/19 cholecalciferol (vitamin D3) 1,000 unit PO QAM 09/27/19 09/27/19 [Vitamin D3] fluticasone propion-salmeterol 1 inh INHALATION BID 09/27/19 09/27/19 [Advair Diskus] fluticasone propion-salmeterol 1 inh INHALATION BID 09/27/19 09/27/19 [Advair Diskus] fluticasone propionate [Flonase 2 spray INTRANASAL DAILY PRN 09/27/19 09/27/19 Allergy Relief] furosemide 80 mg PO QAM 09/27/19 09/27/19 glipizide 10 mg PO QAM 09/27/19 09/27/19 losartan 100 mg PO QAM 09/27/19 09/27/19 magnesium oxide 400 mg PO DAILY 09/27/19 09/27/19 metformin 500 mg PO DAILY 09/27/19 09/27/19 mupirocin 1 applic TOPICAL BID PRN 09/27/19 09/27/19 pen needle, diabetic [BD 09/27/19 09/27/19 Ultra-Fine Mini Pen Needle] potassium chloride 10 meq PO QAM 09/27/19 09/27/19 warfarin 2.5 - 5 mg PO DIRECTED PRN 09/27/19 09/27/19 zolpidem 5 mg PO HS 09/27/19 09/27/19 Allergies Allergy/AdvReac Type Severity Reaction Status Date / Time Penicillins AdvReac Unknown Unverified 09/29/19 11:35 General Stated Complaint: GenMedical SANDRA: 4 Review of Systems Constitutional Constitutional: Denies fever(s) and Denies headache(s) ENT Ears, Nose, Mouth, and Throat: Denies headache(s) Cardiovascular Cardiovascular: Denies chest pain and Denies dyspnea Respiratory Respiratory: Denies cough and Denies dyspnea Integumentary/Breasts Skin/Breast: Denies rash Neurologic Neurologic: Denies headache(s) Hematologic/Lymphatic Hematologic/Lymphatic: Reports easy bruising [facility] Social History Smoking/Tobacco Use Status: Never Alcohol Intake: current Alcohol Intake frequency: holidays/special occasions only Drug use: Never Substance use type: does not use Do you feel safe at home: Yes Do you feel safe in your relationship?: Yes Additional Social history: son lives nearby Exam Const General: cooperative, healthy appearing, comfortable and no acute distress Orientation: alert and awake [facility] Head: normal to inspection, normocephalic and atraumatic General nose exam: other (Nasal packing right nare. No bleeding. Left nare unremarkable) Mouth: moist mucous membranes Throat: posterior oropharynx normal Eyes Conjunctivae: conjunctivae normal Neck Neck: normal visual inspection, trachea midline and supple Resp Effort & Inspection: normal respiratory effort and able to speak in complete sentences Auscultation: clear to auscultation bilaterally Cardio Rate: regular rate Rhythm: regular rhythm Skin General skin exam: no rashes or lesions noted Neuro General: patient alert, patient awake, moves all extremities and no focal motor deficits Sensory Exam: no sensory deficits noted Psych Appearance: grossly normal Mental Status: mental status grossly normal Course Vital Signs Vital signs: Vital Signs Temperature 36.7 C 09/29/19 11:29 Pulse 81 09/29/19 11:29 Blood Pressure 148/60 H 09/29/19 11:29 Pulse Oximetry 97 09/29/19 11:29 Temperature 36.7 C 09/29/19 11:29 Temperature Source Temporal Artery Scan 09/29/19 11:29 Pulse 81 09/29/19 11:29 Respiratory Effort Non-Labored 09/29/19 11:33 Respiratory Depth Normal 09/29/19 11:33 Respiratory Pattern Normal 09/29/19 11:33 Blood Pressure 148/60 H 09/29/19 11:29 Blood Pressure Position Sitting 09/29/19 11:29 Pulse Oximetry 97 09/29/19 11:29 Oxygen Delivery Method Room Air 09/29/19 11:29 Oxygen Flow Rate 0 09/29/19 11:29 Pain Level 0 09/29/19 11:29
[2019-09-29 12:05] LABS: INR 1.6 (0.9-1.1); Prothrombin Time 15.9 sec (9.3-11.0)
== END 2019-09-29 13:07 | disposition home or self-care (01) ==
PROVIDERS: Emergency Provider Physician Assistant; PCP Family Medicine
DX: Z48.00 Encounter for change or removal of nonsurgical wound dressing (principal); Z79.01 Long term (current) use of anticoagulants
CPT/HCPCS: 99282; 85610

== ENCOUNTER 2019-09-30 01:07 | Outpatient (CLI) | payer MEDICARE, MEDICAID, SELFPAY ==
[2019-09-30 11:33] LABS: INR 1.4 (0.9-1.1)
== END 2019-09-30 01:27 ==
PROVIDERS: PCP Family Medicine; Visit Provider Family Medicine
DX: I48.91 Unspecified atrial fibrillation (principal); Z79.01 Long term (current) use of anticoagulants
CPT/HCPCS: 36415; 85610

== ENCOUNTER 2019-10-07 08:37 | Outpatient (CLI) | payer MEDICARE, MEDICAID, SELFPAY ==
[2019-10-07 12:09] LABS: INR 2.6 (0.9-1.1); Prothrombin Time 25.4 sec (9.3-11.0)
== END 2019-10-07 08:57 ==
PROVIDERS: PCP Family Medicine; Visit Provider Family Medicine
DX: I48.91 Unspecified atrial fibrillation (principal); Z79.01 Long term (current) use of anticoagulants
CPT/HCPCS: 36415; 85610

== ENCOUNTER 2019-11-02 02:17 | Outpatient (CLI) | payer MEDICARE, MEDICAID, SELFPAY ==
--- NOTE | 2019-11-02 | DI.MAMMO_ITS ---
EXAM: MG MAMMO SCREENING 60 MIN DUR CLINICAL HISTORY: [facility]LY [facility] Z00.00 TECHNIQUE: Mammograms were interpreted according to the usual protocol including computer analysis w Cardiac Systemz system, tomosynthesis and C-view imaging. COMPARISON: FINDINGS: The breasts are of moderate density with fairly symmetrical distribution of fibroglandular tissue. N o dominant mass or clumped microcalcification is identified breast. Current examination is compared with previous examinations including November 2016 and there has been no gross interval change appearance comparison with the previous studies. IMPRESSION: No specific evidence of malignancy at this time. Routine screening examinations are suggested at yea rly intervals in this age group according to the ACS ACR guidelines. BI-RADS Cat 1 - Negative: Breast Density - Category B - Scattered areas of fibroglandular density
== END 2019-11-02 02:37 ==
PROVIDERS: PCP Family Medicine; Visit Provider Family Medicine
DX: Z12.31 Encounter for screening mammogram for malignant neoplasm of breast (principal)
CPT/HCPCS: 77063; 77067

== ENCOUNTER 2019-11-03 15:00 | Outpatient (REF) | payer MEDICARE, MEDICAID, SELFPAY ==
[2019-11-03 20:31] LABS: ALT 32 U/L (14-59); AST 28 U/L (15-37); Alkaline Phosphatase 122 U/L (46-116); Anion Gap 7.8 mmol/L (3-11); BUN 22 mg/dL (7-18); Bilirubin, Total 0.6 mg/dL (0.2-1.0); CO2 29.2 mmol/L (21.0-32.0); Calcium 9.1 mg/dL (8.5-10.1); Chloride 104 mmol/L (98-107); Estimated GFR 47.79 (mL/min/1.73m2); Glucose 131 mg/dL (74-106); Potassium 3.8 mmol/L (3.5-5.1); Sodium 141 mmol/L (136-145); TSH (W/Ref FT4) 4.76 uIU/mL (0.36-3.74); Total Protein 7.2 g/dL (6.4-8.2)
[2019-11-03 20:53] LABS: FREE T4 1.09 ng/dL (0.76-1.46)
== END 2019-11-03 15:20 ==
LOC: NCHCN 15:00
PROVIDERS: PCP Family Medicine; Visit Provider Family Medicine
DX: E11.9 Type 2 diabetes mellitus without complications (principal); I48.91 Unspecified atrial fibrillation; R94.6 Abnormal results of thyroid function studies; Z79.01 Long term (current) use of anticoagulants
CPT/HCPCS: 80053; 84439; 84443

== ENCOUNTER 2019-12-02 02:08 | Outpatient (CLI) | payer MEDICARE, MEDICAID, SELFPAY ==
[2019-12-02 12:13] LABS: Prothrombin Time 29.3 sec (9.3-11.0)
== END 2019-12-02 02:28 ==
PROVIDERS: PCP Family Medicine; Visit Provider Family Medicine
DX: I48.91 Unspecified atrial fibrillation (principal); Z79.01 Long term (current) use of anticoagulants
CPT/HCPCS: 36415; 85610

== ENCOUNTER 2019-12-30 03:07 | Outpatient (CLI) | payer MEDICARE, MEDICAID, SELFPAY ==
[2019-12-30 11:58] LABS: INR 2.5 (0.9-1.1); Prothrombin Time 24.5 sec (9.3-11.0)
== END 2019-12-30 03:27 ==
PROVIDERS: PCP Family Medicine; Visit Provider Family Medicine
DX: I48.91 Unspecified atrial fibrillation (principal); Z79.01 Long term (current) use of anticoagulants
CPT/HCPCS: 36415; 85610

== ENCOUNTER 2020-01-28 03:13 | Outpatient (CLI) | payer MEDICARE, MEDICAID, SELFPAY ==
[2020-01-28 12:06] LABS: INR 2.4 (0.9-1.1); Prothrombin Time 23.6 sec (9.3-11.0)
[2020-01-28 13:11] LABS: ALT 22 U/L (14-59); AST 19 U/L (15-37); Albumin 4.1 g/dL (3.4-5.0); Alkaline Phosphatase 119 U/L (46-116); Anion Gap 1.5 mmol/L (3-11); BUN 15 mg/dL (7-18); Bilirubin, Total 1.2 mg/dL (0.2-1.0); CO2 32.5 mmol/L (21.0-32.0); CREATININE 0.98 mg/dL (0.55-1.02); Calcium 8.7 mg/dL (8.5-10.1); Chloride 104 mmol/L (98-107); Estimated GFR 54.61 (mL/min/1.73m2); Glucose 130 mg/dL (74-106); Potassium 3.9 mmol/L (3.5-5.1); Sodium 138 mmol/L (136-145); TSH (W/Ref FT4) 4.14 uIU/mL (0.36-3.74); Total Protein 7.1 g/dL (6.4-8.2)
[2020-01-28 13:34] LABS: FREE T4 1.01 ng/dL (0.76-1.46)
== END 2020-01-28 03:33 ==
PROVIDERS: PCP Family Medicine; Visit Provider Family Medicine
DX: I48.91 Unspecified atrial fibrillation (principal); Z79.01 Long term (current) use of anticoagulants; E11.9 Type 2 diabetes mellitus without complications; R94.6 Abnormal results of thyroid function studies
CPT/HCPCS: 36415; 80053; 84439; 84443; 85610

== ENCOUNTER 2020-02-03 03:46 | Outpatient (CLI) | payer MEDICARE, MEDICAID, SELFPAY ==
[2020-02-03 11:51] LABS: INR 3.2 (0.9-1.1)
== END 2020-02-03 04:06 ==
PROVIDERS: PCP Family Medicine; Visit Provider Family Medicine
DX: I48.91 Unspecified atrial fibrillation (principal); Z79.01 Long term (current) use of anticoagulants
CPT/HCPCS: 36415; 85610

== ENCOUNTER 2020-02-11 02:30 | Outpatient (CLI) | payer MEDICARE, MEDICAID, SELFPAY ==
[2020-02-11 11:58] LABS: INR 3.3 (0.9-1.1); Prothrombin Time 31.9 sec (9.3-11.0)
== END 2020-02-11 02:50 ==
PROVIDERS: PCP Family Medicine; Visit Provider Family Medicine
DX: I48.91 Unspecified atrial fibrillation (principal); Z79.01 Long term (current) use of anticoagulants
CPT/HCPCS: 36415; 85610

== ENCOUNTER 2020-03-09 01:23 | Outpatient (CLI) | payer MEDICARE, MEDICAID, SELFPAY ==
[2020-03-09 11:31] LABS: Hemoglobin A1C 6.1 % (<5.7)
[2020-03-09 11:45] LABS: INR 3.8 (0.9-1.1); Prothrombin Time 36.5 sec (9.3-11.0)
== END 2020-03-09 01:43 ==
PROVIDERS: PCP Family Medicine; Visit Provider Family Medicine
DX: E11.9 Type 2 diabetes mellitus without complications (principal); I48.91 Unspecified atrial fibrillation; Z79.01 Long term (current) use of anticoagulants
CPT/HCPCS: 36415; 83036; 85610

== ENCOUNTER 2020-03-23 04:03 | Outpatient (CLI) | payer MEDICARE, MEDICAID, SELFPAY ==
[2020-03-23 11:44] LABS: Prothrombin Time 44.8 sec (9.3-11.0)
[2020-03-23 13:27] LABS: INR 4.6 (0.9-1.1)
== END 2020-03-23 04:23 ==
PROVIDERS: PCP Family Medicine; Visit Provider Family Medicine
DX: I48.91 Unspecified atrial fibrillation (principal); Z79.01 Long term (current) use of anticoagulants
CPT/HCPCS: 36415; 85610

== ENCOUNTER 2020-03-30 02:01 | Outpatient (CLI) | payer MEDICARE, MEDICAID, SELFPAY ==
[2020-03-30 11:24] LABS: INR 2.5 (0.9-1.1); Prothrombin Time 24.3 sec (9.3-11.0)
== END 2020-03-30 02:21 ==
PROVIDERS: PCP Family Medicine; Visit Provider Family Medicine
DX: I48.91 Unspecified atrial fibrillation (principal); Z79.01 Long term (current) use of anticoagulants
CPT/HCPCS: 36415; 85610

== ENCOUNTER 2020-04-28 03:17 | Outpatient (CLI) | payer MEDICARE, MEDICAID, SELFPAY ==
[2020-04-28 11:48] LABS: INR 3.1 (0.9-1.1); Prothrombin Time 30.1 sec (9.3-11.0)
== END 2020-04-28 03:37 ==
PROVIDERS: PCP Family Medicine; Visit Provider Family Medicine
DX: I48.91 Unspecified atrial fibrillation (principal); Z79.01 Long term (current) use of anticoagulants
CPT/HCPCS: 36415; 85610

== ENCOUNTER 2020-05-25 01:05 | Outpatient (CLI) | payer MEDICARE, MEDICAID, SELFPAY ==
[2020-05-25 11:44] LABS: Prothrombin Time 29.5 sec (9.3-11.0)
== END 2020-05-25 01:25 ==
PROVIDERS: PCP Family Medicine; Visit Provider Family Medicine
DX: I48.91 Unspecified atrial fibrillation (principal); Z79.01 Long term (current) use of anticoagulants
CPT/HCPCS: 36415; 85610

== ENCOUNTER 2020-06-23 01:46 | Outpatient (CLI) | payer MEDICARE, MEDICAID, SELFPAY ==
[2020-06-23 11:39] LABS: INR 2.7 (0.9-1.1); Prothrombin Time 26.5 sec (9.3-11.0)
== END 2020-06-23 02:06 ==
PROVIDERS: PCP Family Medicine; Visit Provider Family Medicine
DX: I48.91 Unspecified atrial fibrillation (principal); Z79.01 Long term (current) use of anticoagulants
CPT/HCPCS: 36415; 85610

== ENCOUNTER 2020-07-28 01:49 | Outpatient (CLI) | payer MEDICARE, MEDICAID, SELFPAY ==
[2020-07-28 11:13] LABS: INR 3.2 (0.9-1.1)
== END 2020-07-28 01:50 | disposition home or self-care (01) ==
LOC: LBO 01:49
PROVIDERS: PCP Family Medicine; Visit Provider Family Medicine
DX: I48.91 Unspecified atrial fibrillation (principal); Z79.01 Long term (current) use of anticoagulants
CPT/HCPCS: 36415; 85610

== ENCOUNTER 2020-08-25 02:36 | Outpatient (CLI) | payer MEDICARE, MEDICAID, SELFPAY ==
[2020-08-25 11:16] LABS: Prothrombin Time 40.8 sec (9.3-11.0)
[2020-08-25 11:21] LABS: INR 4.2 (0.9-1.1)
== END 2020-08-25 02:37 | disposition home or self-care (01) ==
LOC: LBO 02:37
PROVIDERS: PCP Family Medicine; Visit Provider Family Medicine
DX: I48.91 Unspecified atrial fibrillation (principal); Z79.01 Long term (current) use of anticoagulants
CPT/HCPCS: 36415; 85610

== ENCOUNTER 2020-09-01 02:38 | Outpatient (CLI) | payer MEDICARE, MEDICAID, SELFPAY ==
[2020-09-01 12:04] LABS: INR 2.1 (0.9-1.1)
== END 2020-09-01 02:39 | disposition home or self-care (01) ==
LOC: LBO 02:38
PROVIDERS: PCP Family Medicine; Visit Provider Family Medicine
DX: I48.91 Unspecified atrial fibrillation (principal); Z79.01 Long term (current) use of anticoagulants
CPT/HCPCS: 36415; 85610

== ENCOUNTER 2020-09-08 03:00 | Outpatient (CLI) | payer MEDICARE, MEDICAID, SELFPAY ==
[2020-09-08 10:15] LABS: INR 1.8 (0.9-1.1); Prothrombin Time 17.5 sec (9.3-11.0)
== END 2020-09-08 03:01 | disposition home or self-care (01) ==
LOC: LBO 03:00
PROVIDERS: PCP Family Medicine; Visit Provider Family Medicine
DX: I48.91 Unspecified atrial fibrillation (principal); Z79.01 Long term (current) use of anticoagulants
CPT/HCPCS: 36415; 85610

== ENCOUNTER 2020-09-15 02:47 | Outpatient (CLI) | payer MEDICARE, MEDICAID, SELFPAY ==
[2020-09-15 11:35] LABS: INR 1.7 (0.9-1.1); Prothrombin Time 17.1 sec (9.3-11.0)
== END 2020-09-15 02:48 | disposition home or self-care (01) ==
LOC: LBO 02:48
PROVIDERS: PCP Family Medicine; Visit Provider Family Medicine
DX: I48.91 Unspecified atrial fibrillation (principal); Z79.01 Long term (current) use of anticoagulants
CPT/HCPCS: 36415; 85610

== ENCOUNTER 2020-09-25 04:27 | Outpatient (CLI) | payer MEDICARE, MEDICAID, SELFPAY ==
[2020-09-25 12:41] LABS: INR 3.8 (0.9-1.1); Prothrombin Time 36.6 sec (9.3-11.0)
== END 2020-09-25 04:28 | disposition home or self-care (01) ==
LOC: LBO 04:27
PROVIDERS: PCP Family Medicine; Visit Provider Family Medicine
DX: I48.91 Unspecified atrial fibrillation (principal); Z79.01 Long term (current) use of anticoagulants
CPT/HCPCS: 36415; 85610

== ENCOUNTER 2020-10-02 02:35 | Outpatient (CLI) | payer MEDICARE, MEDICAID, SELFPAY ==
[2020-10-02 12:40] LABS: INR 2.3 (0.9-1.1); Prothrombin Time 22.7 sec (9.3-11.0)
== END 2020-10-02 02:36 | disposition home or self-care (01) ==
LOC: LBO 02:36
PROVIDERS: PCP Family Medicine; Visit Provider Family Medicine
DX: I48.91 Unspecified atrial fibrillation (principal); Z79.01 Long term (current) use of anticoagulants
CPT/HCPCS: 36415; 85610

== ENCOUNTER 2020-10-16 03:29 | Outpatient (CLI) | payer MEDICARE, MEDICAID, SELFPAY ==
[2020-10-16 12:29] LABS: Prothrombin Time 38.4 sec (9.3-11.0)
== END 2020-10-16 03:30 | disposition home or self-care (01) ==
LOC: LBO 03:29
PROVIDERS: PCP Family Medicine; Visit Provider Family Medicine
DX: I48.91 Unspecified atrial fibrillation (principal); Z79.01 Long term (current) use of anticoagulants
CPT/HCPCS: 36415; 85610

== ENCOUNTER 2020-10-24 03:32 | Outpatient (CLI) | payer MEDICARE, MEDICAID, SELFPAY ==
[2020-10-24 11:55] LABS: INR 2.1 (0.9-1.1); Prothrombin Time 20.9 sec (9.3-11.0)
== END 2020-10-24 03:33 | disposition home or self-care (01) ==
LOC: LBO 03:32
PROVIDERS: PCP Family Medicine; Visit Provider Family Medicine
DX: I48.91 Unspecified atrial fibrillation (principal); Z79.01 Long term (current) use of anticoagulants
CPT/HCPCS: 36415; 85610

== ENCOUNTER 2020-10-31 03:03 | Outpatient (CLI) | payer MEDICARE, MEDICAID, SELFPAY | END 2020-10-31 03:04 | disposition home or self-care (01) | LOC: LBO 03:03 | PROVIDERS: PCP Family Medicine; Visit Provider Family Medicine | DX: I48.91 Unspecified atrial fibrillation (principal); Z79.01 Long term (current) use of anticoagulants | CPT/HCPCS: 36415; 85610 ==

== ENCOUNTER 2020-11-13 03:06 | Outpatient (CLI) | payer MEDICARE, MEDICAID, SELFPAY ==
[2020-11-13 11:26] LABS: INR 2.4 (0.9-1.1); Prothrombin Time 23.9 sec (9.3-11.0)
== END 2020-11-13 03:07 | disposition home or self-care (01) ==
LOC: LBO 03:06
PROVIDERS: PCP Family Medicine; Visit Provider Family Medicine
DX: I48.91 Unspecified atrial fibrillation (principal); Z79.01 Long term (current) use of anticoagulants
CPT/HCPCS: 36415; 85610

== ENCOUNTER 2020-12-11 03:19 | Outpatient (CLI) | payer MEDICARE, MEDICAID, SELFPAY ==
[2020-12-11 11:29] LABS: INR 2.4 (0.9-1.1); Prothrombin Time 23.4 sec (9.3-11.0)
== END 2020-12-11 03:20 | disposition home or self-care (01) ==
LOC: LBO 03:19
PROVIDERS: PCP Family Medicine; Visit Provider Family Medicine
DX: I48.91 Unspecified atrial fibrillation (principal); Z79.01 Long term (current) use of anticoagulants
CPT/HCPCS: 36415; 85610

== ENCOUNTER 2020-12-26 03:50 | Outpatient (CLI) | payer MEDICARE, MEDICAID, SELFPAY ==
[2020-12-26 11:41] LABS: INR 2.8 (0.9-1.1); Prothrombin Time 27.3 sec (9.3-11.0)
== END 2020-12-26 03:51 | disposition home or self-care (01) ==
LOC: LBO 03:50
PROVIDERS: PCP Family Medicine; Visit Provider Family Medicine
DX: I48.91 Unspecified atrial fibrillation (principal); Z79.01 Long term (current) use of anticoagulants
CPT/HCPCS: 36415; 85610

== ENCOUNTER 2021-01-22 13:16 | Outpatient (CLI) | payer MEDICARE, MEDICAID, SELFPAY | END 2021-01-22 13:17 | disposition home or self-care (01) | LOC: LBO 13:22 | PROVIDERS: PCP Family Medicine; Visit Provider Family Medicine | DX: I48.91 Unspecified atrial fibrillation (principal); Z79.01 Long term (current) use of anticoagulants | CPT/HCPCS: 36415; 85610 ==

== ENCOUNTER 2021-01-26 14:31 | Outpatient (REF) | payer MEDICARE, MEDICAID, SELFPAY ==
[2021-01-26 17:16] LABS: COMMENT (LAB VIEW ONLY) 30.92 mg/dL; Microalb ug/mg Crea 86.4 ug/mg Cr
[2021-01-26 18:21] LABS: HCT 39.8 % (36.0-46.0); HGB 12.5 g/dL (11.2-15.7); MCH 28.3 pg (27.0-33.0); MCHC 31.4 % (32.0-36.0); MPV 10.4 fL (8.0-11.0); Platelet Count 298 10^3/uL (130-400); RBC 4.42 10^6/uL (3.93-5.22); RDW 13.8 % (11.7-14.6); RDW-SD 45.2 fL; WBC 8.46 10^3/uL (4.4-10.8)
[2021-01-26 19:01] LABS: ALT 18 U/L (14-59); AST 28 U/L (15-37); Albumin 4.1 g/dL (3.4-5.0); Alkaline Phosphatase 106 U/L (46-116); Anion Gap 9.5 mmol/L (3-11); BUN 26 mg/dL (7-18); Bilirubin, Total 0.8 mg/dL (0.2-1.0); CO2 28.5 mmol/L (21.0-32.0); CREATININE 1.1 mg/dL (0.55-1.02); Calcium 8.7 mg/dL (8.5-10.1); Chloride 103 mmol/L (98-107); Estimated GFR 47.67 (mL/min/1.73m2); Ferritin 237 ng/mL (8-252); Glucose 167 mg/dL (74-106); Potassium 4.2 mmol/L (3.5-5.1); Sodium 141 mmol/L (136-145); TSH (W/Ref FT4) 3.79 uIU/mL (0.36-3.74); Total Protein 7.3 g/dL (6.4-8.2)
[2021-01-26 19:31] LABS: FREE T4 0.96 ng/dL (0.76-1.46)
[2021-01-29 15:08] LABS: IgA 264 mg/dL (85-499); Interpretation (See Note); Tissue Transglutaminase IgA <1.2 U/mL (<4.0)
== END 2021-01-26 14:32 | disposition home or self-care (01) ==
LOC: NCHCN 14:31
PROVIDERS: PCP Family Medicine; Visit Provider Family Medicine
DX: R63.4 Abnormal weight loss (principal); R06.00 Dyspnea, unspecified; R19.7 Diarrhea, unspecified; E11.9 Type 2 diabetes mellitus without complications
CPT/HCPCS: 80053; 82784; 83516; 85027; 82043; 82570; 82728; 84439; 84443

== ENCOUNTER 2021-01-29 03:59 | Outpatient (CLI) | payer MEDICARE, MEDICAID, SELFPAY ==
[2021-01-29 11:34] LABS: INR 3.2 (0.9-1.1)
== END 2021-01-29 04:00 | disposition home or self-care (01) ==
PROVIDERS: PCP Family Medicine; Visit Provider Family Medicine
DX: I48.91 Unspecified atrial fibrillation (principal); Z79.01 Long term (current) use of anticoagulants
CPT/HCPCS: 36415; 85610

== ENCOUNTER 2021-02-12 04:21 | Outpatient (CLI) | payer MEDICARE, MEDICAID, SELFPAY ==
[2021-02-12 11:32] LABS: INR 3.1 (0.9-1.1); Prothrombin Time 29.9 sec (9.3-11.0)
== END 2021-02-12 04:22 | disposition home or self-care (01) ==
LOC: LBO 04:21
PROVIDERS: PCP Family Medicine; Visit Provider Family Medicine
DX: I48.91 Unspecified atrial fibrillation (principal); Z79.01 Long term (current) use of anticoagulants
CPT/HCPCS: 36415; 85610

== ENCOUNTER 2021-03-12 01:40 | Outpatient (CLI) | payer MEDICARE, MEDICAID, SELFPAY ==
[2021-03-12 11:13] LABS: INR 2.3 (0.9-1.1); Prothrombin Time 22.7 sec (9.3-11.0)
== END 2021-03-12 01:41 | disposition home or self-care (01) ==
PROVIDERS: PCP Family Medicine; Visit Provider Family Medicine
DX: Z79.01 Long term (current) use of anticoagulants (principal); I48.91 Unspecified atrial fibrillation
CPT/HCPCS: 36415; 85610

== ENCOUNTER 2021-03-26 02:40 | Outpatient (CLI) | payer MEDICARE, MEDICAID, SELFPAY ==
[2021-03-26 11:59] LABS: INR 2.3 (0.9-1.1); Prothrombin Time 22.4 sec (9.3-11.0)
== END 2021-03-26 02:41 | disposition home or self-care (01) ==
LOC: LBO 02:40
PROVIDERS: PCP Family Medicine; Visit Provider Family Medicine
DX: I48.91 Unspecified atrial fibrillation (principal); Z79.01 Long term (current) use of anticoagulants
CPT/HCPCS: 36415; 85610

== ENCOUNTER 2021-04-09 03:56 | Outpatient (CLI) | payer MEDICARE, MEDICAID, SELFPAY ==
[2021-04-09 11:53] LABS: INR 3.2 (0.9-1.1); Prothrombin Time 31.1 sec (9.3-11.0)
== END 2021-04-09 03:57 | disposition home or self-care (01) ==
LOC: LBO 03:56
PROVIDERS: PCP Family Medicine; Visit Provider Family Medicine
DX: I48.91 Unspecified atrial fibrillation (principal); Z79.01 Long term (current) use of anticoagulants
CPT/HCPCS: 36415; 85610

== ENCOUNTER 2021-04-24 04:23 | Outpatient (CLI) | payer MEDICARE, MEDICAID, SELFPAY ==
[2021-04-24 11:22] LABS: INR 3.6 (0.9-1.1); Prothrombin Time 35.1 sec (9.3-11.0)
== END 2021-04-24 04:24 | disposition home or self-care (01) ==
LOC: LBO 04:23
PROVIDERS: PCP Family Medicine; Visit Provider Family Medicine
DX: Z79.01 Long term (current) use of anticoagulants (principal); I48.91 Unspecified atrial fibrillation
CPT/HCPCS: 36415; 85610

== ENCOUNTER 2021-05-01 02:43 | Outpatient (CLI) | payer MEDICARE, MEDICAID, SELFPAY ==
[2021-05-01 11:50] LABS: INR 2.5 (0.9-1.1); Prothrombin Time 24.6 sec (9.3-11.0)
== END 2021-05-01 02:44 | disposition home or self-care (01) ==
LOC: LBO 02:43
PROVIDERS: PCP Family Medicine; Visit Provider Family Medicine
DX: I48.91 Unspecified atrial fibrillation (principal); Z79.01 Long term (current) use of anticoagulants
CPT/HCPCS: 36415; 85610

== ENCOUNTER 2021-05-15 02:55 | Outpatient (CLI) | payer MEDICARE, MEDICAID, SELFPAY ==
[2021-05-15 11:26] LABS: Prothrombin Time 29.8 sec (9.3-11.0)
== END 2021-05-15 02:56 | disposition home or self-care (01) ==
LOC: LBO 02:56
PROVIDERS: PCP Family Medicine; Visit Provider Family Medicine
DX: I48.91 Unspecified atrial fibrillation (principal); Z79.01 Long term (current) use of anticoagulants
CPT/HCPCS: 36415; 85610

== ENCOUNTER 2021-05-29 02:52 | Outpatient (CLI) | payer MEDICARE, MEDICAID, SELFPAY ==
[2021-05-29 11:19] LABS: INR 3.7 (0.9-1.1); Prothrombin Time 36.1 sec (9.3-11.0)
== END 2021-05-29 02:53 | disposition home or self-care (01) ==
LOC: LBO 02:52
PROVIDERS: PCP Family Medicine; Visit Provider Family Medicine
DX: I48.91 Unspecified atrial fibrillation (principal); Z79.01 Long term (current) use of anticoagulants
CPT/HCPCS: 36415; 85610

== ENCOUNTER 2021-06-05 03:18 | Outpatient (CLI) | payer MEDICARE, MEDICAID, SELFPAY ==
[2021-06-05 12:07] LABS: INR 2.1 (0.9-1.1); Prothrombin Time 20.5 sec (9.3-11.0)
== END 2021-06-05 03:19 | disposition home or self-care (01) ==
PROVIDERS: PCP Family Medicine; Visit Provider Family Medicine
DX: Z79.01 Long term (current) use of anticoagulants (principal); I48.91 Unspecified atrial fibrillation
CPT/HCPCS: 36415; 85610

== ENCOUNTER 2021-06-12 02:15 | Outpatient (CLI) | payer MEDICARE, MEDICAID, SELFPAY ==
[2021-06-12 11:14] LABS: INR 2.6 (0.9-1.1); Prothrombin Time 25.1 sec (9.3-11.0)
== END 2021-06-12 02:16 | disposition home or self-care (01) ==
LOC: LBO 02:15
PROVIDERS: PCP Family Medicine; Visit Provider Family Medicine
DX: I48.91 Unspecified atrial fibrillation (principal); Z79.01 Long term (current) use of anticoagulants
CPT/HCPCS: 36415; 85610

== ENCOUNTER 2021-07-12 02:49 | Outpatient (CLI) | payer MEDICARE, MEDICAID, SELFPAY ==
[2021-07-12 11:16] LABS: INR 3.6 (0.9-1.1); Prothrombin Time 35.1 sec (9.3-11.0)
== END 2021-07-12 02:50 | disposition home or self-care (01) ==
LOC: LBO 02:49
PROVIDERS: PCP Family Medicine; Visit Provider Family Medicine
DX: I48.91 Unspecified atrial fibrillation (principal); Z79.01 Long term (current) use of anticoagulants
CPT/HCPCS: 36415; 85610

== ENCOUNTER 2021-07-19 02:50 | Outpatient (CLI) | payer MEDICARE, MEDICAID, SELFPAY ==
[2021-07-19 11:29] LABS: INR 3.2 (0.9-1.1); Prothrombin Time 31.1 sec (9.3-11.0)
== END 2021-07-19 02:51 | disposition home or self-care (01) ==
LOC: LBO 02:50
PROVIDERS: PCP Family Medicine; Visit Provider Family Medicine
DX: I48.91 Unspecified atrial fibrillation (principal); Z79.01 Long term (current) use of anticoagulants
CPT/HCPCS: 36415; 85610

== ENCOUNTER 2021-08-17 01:31 | Outpatient (CLI) | payer MEDICARE, MEDICAID, SELFPAY ==
[2021-08-17 11:21] LABS: INR 2.6 (0.9-1.1); Prothrombin Time 25.6 sec (9.3-11.0)
== END 2021-08-17 01:32 | disposition home or self-care (01) ==
LOC: LBO 01:32
PROVIDERS: PCP Family Medicine; Visit Provider Family Medicine
DX: Z79.01 Long term (current) use of anticoagulants (principal); I48.91 Unspecified atrial fibrillation
CPT/HCPCS: 36415; 85610

== ENCOUNTER 2021-08-31 02:41 | Outpatient (CLI) | payer MEDICARE, MEDICAID, SELFPAY ==
[2021-08-31 11:35] LABS: INR 1.6 (0.9-1.1); Prothrombin Time 16.1 sec (9.3-11.0)
== END 2021-08-31 02:42 | disposition home or self-care (01) ==
LOC: LBO 02:41
PROVIDERS: PCP Family Medicine; Visit Provider Family Medicine
DX: I48.91 Unspecified atrial fibrillation (principal); Z79.01 Long term (current) use of anticoagulants
CPT/HCPCS: 36415; 85610

== ENCOUNTER 2021-09-06 02:08 | Outpatient (CLI) | payer MEDICARE, MEDICAID, SELFPAY | END 2021-09-06 02:09 | disposition home or self-care (01) | LOC: LBO 02:08 | PROVIDERS: PCP Family Medicine; Visit Provider Family Medicine ==

== ENCOUNTER 2021-09-06 02:15 | Outpatient (CLI) | payer MEDICARE, MEDICAID, SELFPAY ==
[2021-09-06 14:54] LABS: INR 1.7 (0.9-1.1); Prothrombin Time 17.2 sec (9.3-11.0)
== END 2021-09-06 02:16 | disposition home or self-care (01) ==
LOC: LBO 02:16
PROVIDERS: PCP Family Medicine; Visit Provider Family Medicine
DX: I48.91 Unspecified atrial fibrillation (principal); Z79.01 Long term (current) use of anticoagulants
CPT/HCPCS: 36415; 85610

== ENCOUNTER 2021-09-13 02:26 | Outpatient (CLI) | payer MEDICARE, MEDICAID, SELFPAY ==
[2021-09-13 11:32] LABS: INR 2.9 (0.9-1.1); Prothrombin Time 28.8 sec (9.3-11.0)
== END 2021-09-13 02:27 | disposition home or self-care (01) ==
LOC: LBO 02:26
PROVIDERS: PCP Family Medicine; Visit Provider Family Medicine
DX: I48.91 Unspecified atrial fibrillation (principal); Z79.01 Long term (current) use of anticoagulants
CPT/HCPCS: 36415; 85610

== ENCOUNTER 2021-09-20 02:31 | Outpatient (CLI) | payer MEDICARE, MEDICAID, SELFPAY ==
[2021-09-20 12:22] LABS: INR 3.5 (0.9-1.1); Prothrombin Time 33.9 sec (9.3-11.0)
[2021-09-20 12:36] LABS: COMMENT (LAB VIEW ONLY) 19.89 mg/dL
[2021-09-20 12:36] LABS: Anion Gap 5.3 mmol/L (3-11); BUN 25 mg/dL (7-18); CO2 31.7 mmol/L (21.0-32.0); Calcium 8.3 mg/dL (8.5-10.1); Calculated LDL 78 mg/dL (<100); Chloride 101 mmol/L (98-107); Cholesterol 167 mg/dL (<200); Estimated GFR 53.08 (mL/min/1.73m2); Glucose 152 mg/dL (74-106); HDL Cholesterol 68 mg/dL (40-60); Potassium 3.9 mmol/L (3.5-5.1); Sodium 138 mmol/L (136-145); Triglyceride 109 mg/dL (<150)
[2021-09-20 12:39] LABS: Hemoglobin A1C 6.5 % (<5.7)
[2021-09-20 13:15] LABS: Microalb ug/mg Crea 142.8 ug/mg Cr
== END 2021-09-20 02:32 | disposition home or self-care (01) ==
LOC: LBO 02:31
PROVIDERS: PCP Family Medicine; Visit Provider Family Medicine
DX: E11.9 Type 2 diabetes mellitus without complications (principal); R94.6 Abnormal results of thyroid function studies; Z79.01 Long term (current) use of anticoagulants; E78.5 Hyperlipidemia, unspecified; I48.91 Unspecified atrial fibrillation
CPT/HCPCS: 36415; 80048; 80061; 82043; 82570; 83036; 85610

== ENCOUNTER 2021-09-26 04:55 | Outpatient (CLI) | payer MEDICARE, MEDICAID, SELFPAY ==
[2021-09-26 12:33] LABS: Prothrombin Time 38.6 sec (9.3-11.0)
== END 2021-09-26 04:56 | disposition home or self-care (01) ==
LOC: LBO 04:56
PROVIDERS: PCP Family Medicine; Visit Provider Family Medicine
DX: I48.91 Unspecified atrial fibrillation (principal); Z79.01 Long term (current) use of anticoagulants
CPT/HCPCS: 36415; 85610

== ENCOUNTER 2021-10-04 03:35 | Outpatient (CLI) | payer MEDICARE, MEDICAID, SELFPAY ==
[2021-10-04 11:29] LABS: INR 2.6 (0.9-1.1); Prothrombin Time 25.1 sec (9.3-11.0)
[2021-10-04 12:42] LABS: Vitamin D 25 Total 56.9 ng/mL (30-100)
[2021-10-04 12:51] LABS: Calcium 8.8 mg/dL (8.5-10.1); Folate 12.4 ng/mL (8.6-20.0); TSH (W/Ref FT4) 3.78 uIU/mL (0.36-3.74); Vitamin B12 501 pg/mL (193-986)
[2021-10-04 13:16] LABS: FREE T4 0.93 ng/dL (0.76-1.46)
[2021-10-04 17:20] LABS: Ionized Calcium 1.09 mmol/L (1.14-1.35)
[2021-10-05 10:49] LABS: Parathyroid Hormone,Intact 156 pg/mL (19-88)
[2021-10-05 11:39] LABS: Syphilis Serology (RPR) Negative (Negative)
== END 2021-10-04 03:36 | disposition home or self-care (01) ==
LOC: LBO 03:35
PROVIDERS: PCP Family Medicine; Visit Provider Family Medicine
DX: E83.51 Hypocalcemia (principal); M81.0 Age-related osteoporosis without current pathological fracture; R41.3 Other amnesia; I48.91 Unspecified atrial fibrillation; Z79.01 Long term (current) use of anticoagulants
CPT/HCPCS: 36415; 82306; 82310; 82330; 82607; 82746; 83970; 84439; 84443; 85610; 86592

== ENCOUNTER 2021-11-02 01:23 | Outpatient (CLI) | payer MEDICARE, MEDICAID, SELFPAY ==
[2021-11-02 11:18] LABS: Prothrombin Time 27.9 sec (9.3-11.0)
[2021-11-02 11:21] LABS: INR 2.8 (0.9-1.1)
[2021-11-02 11:57] LABS: BUN 31 mg/dL (7-18); CREATININE 1.1 mg/dL (0.55-1.02); Calcium 8.9 mg/dL (8.5-10.1); Chloride 101 mmol/L (98-107); Estimated GFR 47.55 (mL/min/1.73m2); Glucose 168 mg/dL (74-106); Magnesium 2.4 mg/dL (1.8-2.4); PHOSPHORUS 3.8 mg/dL (2.6-4.7); Potassium 4.2 mmol/L (3.5-5.1); Sodium 138 mmol/L (136-145)
== END 2021-11-02 01:24 | disposition home or self-care (01) ==
LOC: LBO 01:23
PROVIDERS: PCP Family Medicine; Visit Provider Family Medicine
DX: E83.51 Hypocalcemia (principal); N28.9 Disorder of kidney and ureter, unspecified; Z79.01 Long term (current) use of anticoagulants; I48.91 Unspecified atrial fibrillation
CPT/HCPCS: 36415; 80048; 83735; 84100; 85610

== ENCOUNTER → 2021-11-16 00:04 | Outpatient (CLI) | payer MEDICARE, MEDICAID, SELFPAY ==
--- NOTE | 2021-11-16 | DI.US_ITS ---
APPROVED REPORT EXAM: Comprehensive 2D, Doppler, and color-flow Echocardiogram Patient Location: Out-Patient Rug Clipper: Liya Man RDCS (AE) Indications: CAD, A Fib, Mechanical Mitral Valve Other Information Study Quality: Adequate Conclusion Left ventricle is normal in size. Systolic function is borderline. EF is 50 to 55%. 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 There is trace to mild mitral regurgitation The tricuspid valve is structurally normal with moderate to severe regurgitation. Estimated right ve ntricular systolic pressure is 44 mmHg Wall motion Left Ventricle The left ventricle is normal size. Left ventricular systolic function is borderline There is normal l eft ventricular wall thickness. There are no segmental wall motion abnormalities There is no ventricu lar septal defect visualized. LVEF is 50-55%. Right Ventricle Right ventricle is grossly normal in size. Right ventricular systolic function is grossly normal. The RVSP is 44.2_ mmHg. Atria Left atrium is moderately dilated. Right atrium is moderately dilated. The interatrial septum is inta ct with no evidence for an atrial septal defect. Aortic Valve Aortic valve is calcified. Number of aortic valve leaflets could not be assessed. No hemodynamically significant valvular aortic stenosis. Trace aortic regurgitation. Mitral Valve No evidence of mitral valve stenosis. Trace to mild mitral regurgitation. Mechanical prosthetic rodrigue l valve is present. Tricuspid Valve The tricuspid valve is normal in structure. There is no tricuspid valve stenosis. Moderate to severe tricuspid regurgitation. Pulmonic Valve The pulmonary valve is normal in structure. There is no pulmonic valvular stenosis. Trace to mild pul augustine regurgitation. Great Vessels The aortic root is normal in size. The ascending aorta is normal in size. Aortic arch is not well vis ualized. IVC is normal in size and collapses >50% with inspiration. Pericardium There is no pericardial effusion. 2D Dimensions IVSD d PLAX 0.77 cm F: 0.6-1.0 LV Vol A2C d MOD 103.7 mL LVPW d PLAX 0.79 cm F: 0.6 - 1.0 LV Vol A4C d MOD 106.7 mL LVID d PLAX 5.05 cm F: 3.8 - 5.2 LV EF A4C MOD 50.7 % LVDs 3.85 cm F: 2.2 - 3.5 LV EF A2C MOD 50.0 % Ao Root d 3.03 cm F: 2.7 - 3.3 LV EF Biplane MOD 50.6 % RA Area A4C 31.44 cm2 SV 54.43 mL RA Vol/ BSA A4C s A-L 74.1 mL/m2 SV Index 30.90 mL/m2 Ao Asc Diam d 2.83 cm F: 2.3 - 3.1 LV EF Teichholz 47.0 % LVEF (Deutsch's) 50.61 % F: 54 - 74 LV Volume 84.30 mL F: 46 - 106 LV Volume Index 47.89 mL/m2 F: 29 - 61 LV Vol Biplane MOD 107.5 mL FS 23.65 % LV Diastology MV E' medial 0.079 (>0.07 m/s) MV E Vmax 1.81 (0.4-1.3 m/s) LV E/e MED 22.80 (<14) MV E' lateral 0.104 (>0.1 m/s) LV E/e LAT 17.43 (<14) MV E/E' medial 22.81 MV E/E' lateral 17.45 Aortic Valve LVOT Area 3.06 cm2 AoV Area Vmax 2.07 cm2 LVOT Vmax 1.44 m/s AoV Area/ BSA (Vmax) 1.17 cm2/m2 LVOT Mean Grant. 1.04 m/s JOSE Mean Grant. 2.02 cm2 LVOT Peak Grad 8.3 mmHg JOSE Mean Grant. Index 1.15 cm2/m2 LVOT Mean Grad 4.8 mmHg LVOT VTI 0.362 m LVOT Diam s 1.95 cm AoV Vmax 2.13 m/s Velocity Ratio 0.67 AoV Mean Grant. 1.57 m/s AoV Peak Grad 18.1 mmHg LVOT SV 110.56 mL AoV Mean Grad 10.8 mmHg AoV VTI 0.536 m AoV Area VTI 2.06 cm2 AoV Area/ BSA (VTI) 1.17 cm/m2 Mitral Valve MV DT 182 (160-240 msec) MV PHT 53 msec MV Area PHT 4.21 cm2 MV VTI 0.366 m MV Area VTI 3.03 (4.0-6.0 cm2) Pulmonary Valve PV Vmax 0.84 (0.5-1.5 m/s) RVOT Peak Gr. 1.17 mmHg PV Peak Grad 2.8 mmHg RVOT Mean Gr. 0.75 mmHg PV Mean Grad 1.5 mmHg RVOT VTI 0.110 m PV VTI 0.173 m RVOT Vmax 0.54 m/s Tricuspid Valve TR Peak Grad 41.2 mmHg TR Vmax 3.21 m/s RA Pressure 3.00 mmHg RVSP (TR) 44.2 mmHg
== END ==
PROVIDERS: PCP Family Medicine; Visit Provider Family Medicine
DX: I48.91 Unspecified atrial fibrillation (principal)
CPT/HCPCS: 93306

== ENCOUNTER 2021-11-30 03:09 | Outpatient (CLI) | payer MEDICARE, MEDICAID, SELFPAY | END 2021-11-30 03:10 | disposition home or self-care (01) | PROVIDERS: PCP Family Medicine; Visit Provider Family Medicine | DX: I48.91 Unspecified atrial fibrillation (principal); Z79.01 Long term (current) use of anticoagulants | CPT/HCPCS: 36415; 85610 ==

== ENCOUNTER 2021-12-06 04:04 | Outpatient (CLI) | payer MEDICARE, MEDICAID, SELFPAY ==
[2021-12-06 11:56] LABS: Prothrombin Time 43.7 sec (9.3-11.0)
[2021-12-06 13:12] LABS: INR 4.8 (0.9-1.1)
== END 2021-12-06 04:05 | disposition home or self-care (01) ==
LOC: LBO 04:05
PROVIDERS: PCP Family Medicine; Visit Provider Family Medicine
DX: I48.91 Unspecified atrial fibrillation (principal); Z79.01 Long term (current) use of anticoagulants
CPT/HCPCS: 36415; 85610

== ENCOUNTER → 2021-12-13 01:26 | Outpatient (CLI) | payer MEDICARE, MEDICAID, SELFPAY ==
--- NOTE | 2021-12-13 14:00 | DI.MAMMO_ITS ---
Exam(s) MG MAMMO SCREENING 60 MIN DUR EXAM: MG MAMMO SCREENING 60 MIN DUR CLINICAL HISTORY: SCREENING, Z12.39 TECHNIQUE: Bilateral full field digital CC and MLO mammographic images were obtained with 3D tomosyn thesis and utilizing computer aided detection (CAD). COMPARISON: Available for comparison. FINDINGS: Masses/Architectural Distortion: None seen. Microcalcifications: No suspicious pleomorphic-type are seen. Skin Thickening/Nipple Retraction: None. IMPRESSION: 1. No significant interval change with no specific features of malignancy noted. 2. Unless there is more urgent need, screening mammography is recommended, as per [employer] guidelines. BI-RADS Category 1 - Negative Breast Density - Category B - Scattered areas of fibroglandular density Breast density category C or D implies that the patient has dense breast tissue. Dense breast tissue is very common and is not abnormal but dense breast tissue can make it harder to find cancer on a ma mmogram. Also, dense breast tissue may increase their breast cancer risk. This information about the result of the mammogram report was provided to the patient to raise their awareness. Use this report when you speak with the patient about their risks for breast cancer, which includes their family hist ory. At that time, you may recommend for more screening tests (Ultrasound or MRI) as they might be us eful based on their risk. A negative radiographic report should not delay biopsy if a dominant or clinically suspicious mass is present. Up to ten percent of cancers are not identified on mammography. A negative report may reinforce clinical impression. Adenosis and dense breasts may obscure an underlying neoplasm. False positive reports average 6 to 10%. Patient will receive a letter notifying them of these results.
--- NOTE | 2021-12-13 15:30 | DI.DEXA_ITS ---
Exam(s) XR DEXA BONE DENSITY W/WO OLGA EXAM: XR DEXA BONE DENSITY W/WO OLGA CLINICAL HISTORY: OSTEOPOROSIS, FOSAMAX 08/2019, FX RISK 2017 12% MAJOR, 3.5% HIP, M81.0 TECHNIQUE: COMPARISON: Comparison is 02/03/2018. FINDINGS: Lateral Spine Image: Unremarkable. No compression deformities identified. Left hip: Total T-Score: -2.3. This compares to -2.2 on the prior examination. This is a decrease in bone mine ral density. Total Z-Score: -0.1 T- and Z-scores: Findings are consistent with osteopenia. There is osteoporosis in the femoral neck with a total T-score of -2.5. Lumbar Spine: Total T-Score: -2.9. This is unchanged compared to the prior examination. Total Z-Score: -0.1 T- and Z-scores: Findings are consistent with osteoporosis. IMPRESSION: Findings of osteoporosis in the femoral neck and lumbar spine.
== END ==
PROVIDERS: PCP Family Medicine; Visit Provider Family Medicine
DX: Z12.31 Encounter for screening mammogram for malignant neoplasm of breast (principal); M81.0 Age-related osteoporosis without current pathological fracture; R92.8 Other abnormal and inconclusive findings on diagnostic imaging of breast
CPT/HCPCS: 77063; 77067; 77080

== ENCOUNTER 2021-12-13 02:21 | Outpatient (CLI) | payer MEDICARE, MEDICAID, SELFPAY ==
[2021-12-13 14:05] LABS: Prothrombin Time 28.6 sec (9.3-11.0)
== END 2021-12-13 02:22 | disposition home or self-care (01) ==
LOC: LBO 02:22
PROVIDERS: PCP Family Medicine; Visit Provider Family Medicine
DX: I48.91 Unspecified atrial fibrillation (principal); Z79.01 Long term (current) use of anticoagulants
CPT/HCPCS: 36415; 85610

== ENCOUNTER 2022-01-03 02:59 | Outpatient (CLI) | payer MEDICARE, MEDICAID, SELFPAY ==
[2022-01-03 11:29] LABS: INR 2.1 (0.9-1.1); Prothrombin Time 20.2 sec (9.3-11.0)
== END 2022-01-03 03:00 | disposition home or self-care (01) ==
LOC: LBO 02:59
PROVIDERS: PCP Family Medicine; Visit Provider Family Medicine
DX: I48.91 Unspecified atrial fibrillation (principal); Z79.01 Long term (current) use of anticoagulants
CPT/HCPCS: 36415; 85610

== ENCOUNTER 2022-01-10 01:52 | Outpatient (CLI) | payer MEDICARE, MEDICAID, SELFPAY ==
[2022-01-10 11:19] LABS: INR 2.8 (0.9-1.1); Prothrombin Time 26.3 sec (9.3-11.0)
== END 2022-01-10 01:53 | disposition home or self-care (01) ==
LOC: LBO 01:53
PROVIDERS: PCP Family Medicine; Visit Provider Family Medicine
DX: I48.91 Unspecified atrial fibrillation (principal); Z79.01 Long term (current) use of anticoagulants
CPT/HCPCS: 36415; 85610

== ENCOUNTER 2022-01-21 16:44 | Outpatient (REF) | payer MEDICARE, MEDICAID, SELFPAY ==
[2022-01-21 14:47] LABS: Source Nasopharynx
[2022-01-21 20:00] LABS: COVID-19 PCR Negative (Negative)
== END 2022-01-21 16:45 | disposition home or self-care (01) ==
LOC: NCHCN 16:44
PROVIDERS: PCP Family Medicine; Visit Provider Family Medicine
DX: Z20.822 Contact with and (suspected) exposure to COVID-19 (principal); Z01.818 Encounter for other preprocedural examination
CPT/HCPCS: 87635

== ENCOUNTER → 2022-01-22 12:51 | Outpatient (BNVA) | payer MEDICARE, MEDICAID, SELFPAY | PROVIDERS: PCP Family Medicine; Referring Provider Family Medicine; Visit Provider Internal Medicine Cardiovascular Disease | DX: I48.21 Permanent atrial fibrillation (principal); R06.09 Other forms of dyspnea; I36.1 Nonrheumatic tricuspid (valve) insufficiency; I10 Essential (primary) hypertension; Z95.2 Presence of prosthetic heart valve | CPT/HCPCS: 93005; 99203; 99214 ==

== ENCOUNTER 2022-01-22 12:53 | Outpatient (CLI) | payer MEDICARE, MEDICAID, SELFPAY ==
--- NOTE | 2022-01-22 12:45 | RT.EKG_ITS ---
APPROVED REPORT Exam: Resting ECG Reason for Exam: NPW, Baseline needed Patient Location: O HR:64 bpm ECG Measurements Heart Rate 64 AXIS [place] [id number] P [id number] QRSd 114 QRS -42 QT 448 T 103 QTc 463 Conclusion Atrial fibrillation...? atrial activity Left anterior fascicular block IVCD LVH with secondary repolarization abnormality...multi-LVH criteria, abnrm ST-T
== END 2022-01-22 12:54 | disposition home or self-care (01) ==
LOC: DI.CARD 12:54
PROVIDERS: PCP Family Medicine; Visit Provider Internal Medicine Cardiovascular Disease
DX: I48.91 Unspecified atrial fibrillation (principal); Z95.2 Presence of prosthetic heart valve; R94.31 Abnormal electrocardiogram [ECG] [EKG]; I44.4 Left anterior fascicular block
CPT/HCPCS: 93010

== ENCOUNTER 2022-01-28 07:20 | Day surgery (SDC) | payer MEDICARE, MEDICAID, SELFPAY ==
[2022-01-28 08:04] VITALS: BP 152/90; PULSE 79; RESP 16; TEMP 36.6; O2SAT 96
[2022-01-28] MEDS: Tropicam./Phenyleph. (1/2.5%) 5 ML BTL OS ×3 (08:11→08:38)
--- NOTE | 2022-01-28 08:18 | ANES.PREOP_ITS ---
General Info Date of Service Date Performed: 01/28/22 Height: 5 ft 2 in Weight: 73.1 kg Body Mass Index (BMI): 29.5 Surgical Procedure: Operation Date: 01/28/22 09:40 Proposed Procedure Side Surgeon p Cataract Extraction with IOL Implant Left Magdaleno Veloz MD Meds Allergies and Home Medications Allergies Allergy/AdvReac Type Severity Reaction Status Date / Time peanut Allergy Severe Verified 01/28/22 08:21 lactose Allergy Unknown Diarrhea Verified 01/28/22 08:21 Penicillins Allergy Unknown Pt thinks Verified 01/28/22 08:21 she gets a rash aminophylline Allergy unknown Verified 01/28/22 08:21 amiodarone Allergy unknown Verified 01/28/22 08:21 digoxin Allergy unknown Verified 01/28/22 08:21 enalaprilat [From Vasotec] Allergy unknown Verified 01/28/22 08:21 tree and shrub pollen Allergy Verified 01/28/22 08:21 paper tape Allergy Intermediate Skin Rash, Uncoded 01/28/22 08:21 red and sore Home Medication Medication Instructions Recorded albuterol sulfate 90 mcg/actuation 2 puff inhalation QID 09/27/19 aerosol inhaler (ProAir HFA) albuterol sulfate 90 mcg/actuation 2 puff inhalation PRN PRN 09/27/19 aerosol inhaler (Ventolin HFA) albuterol sulfate 90 mcg/actuation 2 puff inhalation Q6H 09/27/19 aerosol inhaler (Ventolin HFA) alendronate 70 mg tablet 70 mg PO DIRECTED 09/27/19 atorvastatin 10 mg tablet (Lipitor) 10 mg PO QPM 09/27/19 cetirizine 10 mg tablet 10 mg PO QAM 09/27/19 cholecalciferol (vitamin D3) 25 1,000 unit PO QAM 09/27/19 mcg (1,000 unit) tablet (Vitamin D3) fluticasone 500 mcg-salmeterol 50 1 inh inhalation BID 09/27/19 mcg/dose blistr powdr for inhalation (Advair Diskus) fluticasone propionate 50 2 spray intranasal DAILY PRN 09/27/19 mcg/actuation nasal spray,suspension (Flonase Allergy Relief) furosemide 80 mg tablet 80 mg PO QAM 09/27/19 mupirocin 2 % topical ointment 1 applic topical BID PRN 09/27/19 pen needle, diabetic 31 gauge x 09/27/19 3/16 (BD Ultra-Fine Mini Pen Needle) potassium chloride 10 mEq 10 meq PO QAM 09/27/19 tablet,extended release(part/cryst) warfarin 5 mg tablet 2.5 - 5 mg PO DIRECTED PRN 09/27/19 zolpidem 5 mg tablet 5 mg PO HS 09/27/19 atenolol 50 mg tablet 50 mg PO QAM 11/13/21 fluticasone 500 mcg-salmeterol 50 1 inh inhalation BID 11/13/21 mcg/dose blistr powdr for inhalation (Advair Diskus) temazepam 15 mg capsule 15 mg PO QHS PRN 11/13/21 losartan 100 mg tablet 50 mg PO QAM 11/29/21 Current Visit Medications: Current Medications Generic Name Dose Route Start Last Admin Trade Name Freq PRN Reason Stop Dose Admin Acetaminophen 1,000 mg 01/28/22 06:00 Acetaminophen 500 Mg Tab PO Q4H PRN PRN Miscellaneous Medication 0 ml 01/28/22 06:00 Prednisolone 1%, Moxifloxacin 0.5%, Nepafenac 0.1% 5ml Btl OS DIRECTED HERBERT Miscellaneous Medication 0 ml 01/28/22 06:00 01/28/22 08:11 Tropicam./Phenyleph. (1/2.5%) 5 Ml Btl OS 1 drp DIRECTED HERBERT Administration Tetracaine HCl 0 ml 01/28/22 06:00 Tetracaine 0.5% 4 Ml Btl OS DIRECTED HERBERT PFSH Active Problems Active Problems: Problem Status Onset Code Conductive hearing loss in right ear 02/23/15 H90.11 Mixed conductive and sensorineural hearing loss of right ear with restricted hearing of left ear 07/25/16 H90.A31 Sensorineural hearing loss (SNHL) of left ear with restricted hearing of right ear 07/25/16 H90.A22 Sensorineural hearing loss, bilateral 02/25/17 H90.3 Medical History Medical History A-fib Allergic rhinitis Asthma CAD (coronary artery disease) Diabetes mellitus Diverticulitis Hiatal hernia HTN (hypertension) Hyperlipidemia Insomnia Lactose intolerance Leg cramps Mitral valve stenosis Osteoporosis Medical History Comments:: has a CPAP machine but doesnt use it Surgical History Surgical History H/O adenoidectomy History of bladder suspension procedure History of tonsillectomy Mitral valve replaced Tobacco Smoking/Tobacco Use Status: Never Alcohol Alcohol Intake: never Substance Use Substance use: Never Substance use type: does not use Vital Signs and Lab Results Vital Signs Most Recent Vital Signs in EMR: Most Recent Vital Signs Temp Pulse Resp BP Pulse Ox 36.6 C 79 16 152/90 H 96 01/28/22 08:04 01/28/22 08:04 01/28/22 08:04 01/28/22 08:04 01/28/22 08:04 Lab Results Blood Type / Crossmatch: No Data to Display Complete Blood Count: No Data to Display Complete Metabolic Panel: No Data to Display Liver Function Panel: No Data to Display Coagulation Panel: INR International Normalized Ratio 2.8 (0.9-1.1) H 01/10/22 10 :57 Prothrombin Time 26.3 sec (9.3-11.0) H 01/10/22 10:57 Cardiac Panel: No Data to Display Arterial Blood Gas: No Data to Display Venous Blood Gas: No Data to Display Pancreas Panel: No Data to Display Thyroid Panel: No Data to Display Infectious Disease: Coronavirus (COVID-19)(PCR) Negative (Negative) 01/21/22 10:45 Coronavirus 2019 Source Nasopharynx 01/21/22 10:45 Blood Cultures: No Data to Display Toxicology Panel: No Data to Display Imaging and Studies Imaging and Studies Study information below may be from another EMR and interpreted by another provider. Please see original notes in EMR for more complete details. EKG Summary: Conclusion Atrial fibrillation...? atrial activity Left anterior fascicular block IVCD LVH with secondary repolarization abnormality...multi-LVH criteria, abnrm ST-T 01/22/22 Echocardiogram Summary: Conclusion Left ventricle is normal in size. Systolic function is borderline. EF is 50 to 55%. There are no segmental wall motion abnormalities The right ventricle appears normal in size and systolic function Both atria are moderately enlarged The aortic valve is calcified with trace regurgitation There is a mechanical mitral valve prosthesis. There is trace to mild mitral regurgitation The tricuspid valve is structurally normal with moderate to severe regurgitation. Estimated right ventricular systolic pressure is 44 mmHg 11/16/21 Anesthesia Assessment and Plan Anesthesia History Personal History: No History of Anesthesia Complications Family History: No Family History of Anesthesia Complications Exercise Tolerance Exercise Tolerance: Metabolic Equivalents<4 Pertinent Negatives Pertinent Negatives: No Symptoms of GERD and No Major Cardiovascular Symptoms or Complaints Cardiac & Pulmonary Exam Cardiac Exam: Other (Irregular) Pulmonary Exam: Wheezing Present (KOKO) Implantable Cardiac Device Does patient have a Pacemaker or an ICD?: No Airway Exam Known Difficult Airway: No Mallampati Class: 1 Mouth Opening: Normal (> 3cm) Thyromental Distance: Greater than 3 cm Neck Range of Motion: Full ROM Neck Circumference: Normal Teeth Condition: Removable Dentures/Plates Upper ASA Classification ASA Score: ASA 3 Emergency Case?: No NPO Status NPO Status: NPO Clears >2 hours, Solids >8 hours Anesthesia Plan Resuscitation Status: Full Code Anesthesia Technique: MAC Anesthesia Airway Planned: Natural Airway Monitors Used: Standard Monitors
[2022-01-28 08:51] VITALS: BMI 29.5
[2022-01-28] MEDS: Tetracaine 0.5% 4 ML BTL OS (09:05)
[2022-01-28] MEDS: Balanced Salt Soln.-PLUS 500 ML BAG (09:05)
[2022-01-28] MEDS: Duovisc Viscoelastic System EACH 1 EACH (09:06)
[2022-01-28] MEDS: Lidocaine 2% Jelly 6 ML SYR (09:06)
[2022-01-28] MEDS: Povidone-Iodine Ophth 30 ML BTL (09:08)
[2022-01-28] MEDS: Trypan Blue 0.06% 0.5 ML SYR (09:08)
[2022-01-28 09:23] VITALS: BP 187/83; PULSE 80; RESP 16; TEMP 36.6; O2SAT 97
--- NOTE | 2022-01-28 09:25 | W.PM.DSUDISC ---
Discharge Plan Disposition Patient Disposition: HOME Condition: Good Discharge Details Attending Provider: Magdaleno Veloz Primary Care Provider: Mell Cueto Home Meds and New Rx's Prescriptions: No Action losartan 100 mg tablet 50 mg PO QAM Label Comments: TK 1 T PO D atenolol 50 mg tablet 50 mg PO QAM fluticasone propion-salmeterol [Advair Diskus] 500-50 mcg/dose blister with device 1 inh inhalation BID temazepam 15 mg capsule 15 mg PO QHS PRN albuterol sulfate [ProAir HFA] 90 mcg/actuation Hfa Aerosol Inhaler 2 puff inhalation QID fluticasone propion-salmeterol [Advair Diskus] 500-50 mcg/dose blister with device 1 inh INHALATION BID Label Comments: INL 1 PUFF PO BID furosemide 80 mg tablet 80 mg PO QAM Label Comments: TK 1 T PO QD cetirizine 10 mg tablet 10 mg PO QAM Label Comments: TK 1 T PO D PRN cholecalciferol (vitamin D3) [Vitamin D3] 25 mcg (1,000 unit) tablet 1,000 unit PO QAM Label Comments: TAKE 1 TABLET BY MOUTH ONCE DAILY atorvastatin [Lipitor] 10 mg Tablet 10 mg PO QPM potassium chloride 10 mEq tablet,ER particles/crystals 10 meq PO QAM Label Comments: TK 1 T PO QD zolpidem 5 mg tablet 5 mg PO HS warfarin 5 mg tablet 2.5 - 5 mg PO DIRECTED PRN Label Comments: TK 1 T PO D UTD Rx Instructions: 2.5 M/Th - 5 all other days albuterol sulfate [Ventolin HFA] 90 mcg/actuation HFA aerosol inhaler 2 puff INHALATION PRN PRN Label Comments: INL 2 PFS PO Q 6 H PRN (DME) pen needle, diabetic [BD Ultra-Fine Mini Pen Needle] 31 gauge x 3/16 needle MISCELLANEOUS Label Comments: INJECT INSULIN SUBCUTANEOUSLY DIRECTED. ONCE A DAY albuterol sulfate [Ventolin HFA] 90 mcg/actuation HFA aerosol inhaler 2 puff INHALATION Q6H Label Comments: INL 2 PFS PO Q 6 H PRN fluticasone propionate [Flonase Allergy Relief] 50 mcg/actuation [place],Suspension 2 spray INTRANASAL DAILY PRN mupirocin 2 % ointment 1 applic TOPICAL BID PRN Label Comments: APPLY TO AFFECTED AREA TWICE DAILY FOR 1 WEEK OR UNTIL RESOLVED alendronate 70 mg tablet 70 mg PO DIRECTED Label Comments: TK 1 T PO WEEKLY ON AN EMPTY STOMACH WITH BIG GLASS OF WATER DONT LIE DOWN FOR AN HOUR Rx Instructions: weekly Discharge Instructions Stand Alone Forms: Post-op Topical Cataract, Emiliano Beard (DSU) Discharge Orders Discharge Orders: Discharge Order (Routine); Ordered 01/28/22 Ordered By: Magdaleno Veloz DS: Diagnosis Discharge Diagnosis (1) Posterior subcapsular age-related cataract of left eye: Status: Resolved (2) Nuclear sclerotic cataract of left eye: Status: Resolved (3) Cortical cataract of left eye: Status: Resolved
--- NOTE | 2022-01-28 09:26 | ROE_ITS ---
Date of service: 01/28/22 Time of Service: 09:26 Operative Note Operative Note DATE OF PROCEDURE: 01/28/22 PRE-OP DIAGNOSIS: Nuclear/cortical/posterior subcapsular cataract, left eye poor red reflex, left eye secondary to cataract POST-OP DIAGNOSIS: same PROCEDURE: Cataract extraction using phacoemulsification with intraocular lens implant, left eye, using capsular staining with Vision Blue SURGEON: Magdaleno Veloz ANESTHESIA TYPE: Local By Surgeon and MAC Refer to Anesthesia Record COMPLICATIONS: None Patient was transported to: same day Patient's condition: stable Implants: [employer] / [employer] Tecnis [id number] Indications: Progressive decreased vision due to cataract, left eye, with poor red reflex Procedure Description: CATARACT SURGERY OPERATIVE REPORT PREOPERATIVE DIAGNOSIS: 1. Dense nuclear/cortical/posterior subcapsular cataract, left eye 2. Poor red reflex secondary to #1 POSTOPERATIVE DIAGNOSIS: Same OPERATION: 1. Cataract extraction using phacoemulsification with posterior chamber intraocular lens implant, left eye. 2. Capsular staining with Vision Blue IOL: IOL [employer]/Model: Frank & Frank / ADAM Tecnis [id number] IOL Power: + 22.0 diopters IOL Serial Number: [id number] Optic Diameter: 6.0 mm Haptic/Overall Diameter: 13.0 mm PHACO INFO: Shailesh BravoSolutionurion Vision System with OZil and Active Fluidics Cumulative Dispersed Energy (CDE): 10.56 seconds SURGEON: Magdaleno Veloz MD, MATTHEW ANESTHESIA: Monitored A [facility] Care (MAC), with local sub-tenon's anesthetic infiltration COMPLICATIONS: None SPECIMENS: None INDICATIONS FOR PROCEDURE: The patient is an 81-year-old lady with history of diminished visual acuity in her left eye secondary to development of significant nuclear/cortical/posterior subcapsular cataract. The option of cataract surgery was offered to the patient and she felt she was symptomatic at that she wished to proceed. PROCEDURE: The correct surgical eye was identified and marked as the left eye and the pupil was dilated in the preoperative area using mydriatics and cycloplegics. The dilated pupil size was 8.0 mm. Oral sedation was administered in the form of an Imprimis MKO Melt (midazolam 3mg/ketamine 25mg/ondansetron 2mg). The patient was brought to the operating room where cardiopulmonary monitoring was instituted and surgical time-out was performed, confirming the correct operative eye and IOL power. Topical anesthesia was administered and ophthalmic povidone-iodine 5% was instilled into the conjunctival fornices. Lidocaine gel was applied to the cornea and the yvonne-ocular area was prepped with Betadine 10% solution and draped in the usual sterile fashion for intraocular surgery, including an aperture drape. A Tegaderm transparent film dressing was cut in half and used to cover the lashes and lid margins. Care was taken to sequester the lashes and lid margins under the Tegaderm dressing. A lid speculum was placed between the lids of the operative eye and the Shailesh LuxOR Revalia operating microscope was maneuvered into position. Samaria scissors were then used to make a conjunctival buttonhole approximately 6mm posterior to the limbus in the inferonasal quadrant. Blunt dissection was carried out to expose bare sclera, and a blunt-tipped sub-tenon?s anesthesia cannula was introduced and passed posteriorly along the globe where non- preserved plain lidocaine was injected into posterior sub-Tenon?s space. A sideport knife was used to make a paracentesis port superiorly/superiortemporally. Intraocular phenylephrine/lidocaine was injected int the anterior chamber.. Air was then injected into the anterior chamber, followed by Vision Blue, which was painted over the anterior capsule and then irrigated out using BSS. The anterior chamber was filled with viscoelastic. A keratome knife was used to create a 2-plane near clear corneal tunnel extending approximately 2 mm into clear cornea temporally. A flap was raised on the anterior capsule and capsulorhexis forceps were used to complete a continuous curvilinear capsulorhexis of 5.0 mm. Balanced salt solution was then used to perform cortical cleaving hydrodissection and nuclear hydrodelineation until the lens could be freely rotated within the capsular bag. The lens nucleus was then disassembled and removed within the capsular bag and iris plane using phacoemulsification. Residual cortical material was removed using the 45-degree angled silicone I/A tip with 0.3mm port. The posterior capsule was carefully polished to remove as much residual lens epithelial cells as safely possible. The capsular bag was then inflated and the anterior chamber deepened with viscoelastic. The lens implant described above was inserted into the capsular bag using the ADAM [place] Injector. A Kuglen hook was used to dial the IOL into position. Residual viscoelastic was then removed first from posterior to the IOL, then from the anterior chamber using the I/A handpiece. The lens implant was noted to center nicely within the capsular bag. The incisions were stromally hydrated, and the anterior chamber was reformed using BSS. Then 0.5cc of moxifloxacin 1.0mg/ml were injected into the capsular bag and anterior chamber. The incisi ons were checked with a Weck spear and found to be secure. Several drops of ophthalmic povidone-iodine 5% were then applied to the eye followed by two drops of Imprimis combination prednisolone/moxifloxacin/nepafenac solution. The drapes were removed and a clear plastic protective eye shield was placed over the eye. The patient was then returned to Same Day Surgery in stable condition.
--- NOTE | 2022-01-28 09:51 | W.ANESPOSTOP ---
Postoperative Evaluation Date, Time and Location Date Performed: 01/28/22 Time Performed: 09:28 Patient Location: Day Surgery Unit Vital Signs Most Recent Imported Vital Signs: Most Recent Vital Signs Temp Pulse Resp BP Pulse Ox 36.6 C 80 16 187/83 H 97 01/28/22 09:23 01/28/22 09:23 01/28/22 09:23 01/28/22 09:23 01/28/22 09:23 Pain Score Most Recent Pain Score: Most Recent Pain Score Pain Level 0 01/28/22 09:23 Assessment Mental Status: Awake (Alert & Oriented to Patient Baseline) Airway and Respiratory Function: Patent airway with normal (patient baseline) respiratory exam Cardiovascular Function: Hemodynamically Stable Hydration Status: Adequately Hydrated Nausea & Vomiting: No Nausea or Vomiting Pain: Pt. Denies Any Pain Peripheral Nerve Block: Patient did not receive a nerve block
[2022-01-28 09:52] VITALS: BP 135/49; PULSE 75; RESP 16; TEMP 36.6; O2SAT 95
== END 2022-01-28 10:04 | disposition home or self-care (01) ==
PROVIDERS: PCP Family Medicine; Visit Provider Ophthalmology
PROC: (CPT 66982; principal; 2022-01-28 09:30)
DX: H25.042 Posterior subcapsular polar age-related cataract, left eye (principal); H26.8 Other specified cataract; E11.9 Type 2 diabetes mellitus without complications; I48.91 Unspecified atrial fibrillation; Z79.01 Long term (current) use of anticoagulants
CPT/HCPCS: 66982; V2632

== ENCOUNTER 2022-02-07 03:06 | Outpatient (CLI) | payer MEDICARE, MEDICAID, SELFPAY ==
[2022-02-07 11:25] LABS: INR 3.8 (0.9-1.1); Prothrombin Time 35.3 sec (9.3-11.0)
== END 2022-02-07 03:07 | disposition home or self-care (01) ==
LOC: LBO 03:06
PROVIDERS: PCP Family Medicine; Visit Provider Family Medicine
DX: Z79.01 Long term (current) use of anticoagulants (principal); I48.91 Unspecified atrial fibrillation
CPT/HCPCS: 36415; 85610

== ENCOUNTER 2022-02-11 10:17 | Day surgery (SDC) | payer MEDICARE, MEDICAID, SELFPAY ==
--- NOTE | 2022-02-11 05:23 | ANES.PREOP_ITS ---
General Info Date of Service Date Performed: 02/11/22 Height: 5 ft 2 in Weight: 73.1 kg Body Mass Index (BMI): 29.5 Surgical Procedure: Operation Date: 02/11/22 12:10 Proposed Procedure Side Surgeon p Cataract Extraction with IOL Implant Right Magdaleno Veloz MD Meds Allergies and Home Medications Allergies Allergy/AdvReac Type Severity Reaction Status Date / Time peanut Allergy Severe Verified 02/11/22 11:13 lactose Allergy Unknown Diarrhea Verified 02/11/22 11:13 Penicillins Allergy Unknown Pt thinks Verified 02/11/22 11:13 she gets a rash aminophylline Allergy unknown Verified 02/11/22 11:13 amiodarone Allergy unknown Verified 02/11/22 11:13 digoxin Allergy unknown Verified 02/11/22 11:13 enalaprilat [From Vasotec] Allergy unknown Verified 02/11/22 11:13 tree and shrub pollen Allergy Verified 02/11/22 11:13 paper tape Allergy Intermediate Skin Rash, Uncoded 02/11/22 11:13 red and sore Home Medication Medication Instructions Recorded albuterol sulfate 90 mcg/actuation 2 puff inhalation QID 09/27/19 aerosol inhaler (ProAir HFA) albuterol sulfate 90 mcg/actuation 2 puff inhalation PRN PRN 09/27/19 aerosol inhaler (Ventolin HFA) albuterol sulfate 90 mcg/actuation 2 puff inhalation Q6H 09/27/19 aerosol inhaler (Ventolin HFA) alendronate 70 mg tablet 70 mg PO DIRECTED 09/27/19 atorvastatin 10 mg tablet (Lipitor) 10 mg PO QPM 09/27/19 cetirizine 10 mg tablet 10 mg PO QAM 09/27/19 cholecalciferol (vitamin D3) 25 1,000 unit PO QAM 09/27/19 mcg (1,000 unit) tablet (Vitamin D3) fluticasone 500 mcg-salmeterol 50 1 inh inhalation BID 09/27/19 mcg/dose blistr powdr for inhalation (Advair Diskus) fluticasone propionate 50 2 spray intranasal DAILY PRN 09/27/19 mcg/actuation nasal spray,suspension (Flonase Allergy Relief) furosemide 80 mg tablet 80 mg PO QAM 09/27/19 mupirocin 2 % topical ointment 1 applic topical BID PRN 09/27/19 pen needle, diabetic 31 gauge x 09/27/19 3/16 (BD Ultra-Fine Mini Pen Needle) potassium chloride 10 mEq 10 meq PO QAM 09/27/19 tablet,extended release(part/cryst) warfarin 5 mg tablet 2.5 - 5 mg PO DIRECTED PRN 09/27/19 zolpidem 5 mg tablet 5 mg PO HS 09/27/19 atenolol 50 mg tablet 50 mg PO QAM 11/13/21 fluticasone 500 mcg-salmeterol 50 1 inh inhalation BID 11/13/21 mcg/dose blistr powdr for inhalation (Advair Diskus) temazepam 15 mg capsule 15 mg PO QHS PRN 11/13/21 losartan 100 mg tablet 50 mg PO QAM 11/29/21 Current Visit Medications: Current Medications Generic Name Dose Route Start Last Admin Trade Name Freq PRN Reason Stop Dose Admin Acetaminophen 1,000 mg 02/11/22 06:00 Acetaminophen 500 Mg Tab PO Q4H PRN PRN Miscellaneous Medication 0 ml 02/11/22 06:00 Prednisolone 1%, Moxifloxacin 0.5%, Nepafenac 0.1% 5ml Btl OD DIRECTED [facility] Miscellaneous Medication 0 ml 02/11/22 06:00 Tropicam./Phenyleph. (1/2.5%) 5 Ml Btl OD DIRECTED [facility] Tetracaine HCl 0 ml 02/11/22 06:00 Tetracaine 0.5% 4 Ml Btl OD DIRECTED [facility] PFSH Active Problems Active Problems: Problem Status Onset Code Posterior subcapsular age-related cataract, right eye H25.041 Cortical cataract of right eye H26.9 Nuclear sclerotic cataract of right eye H25.11 Posterior subcapsular age-related cataract of left eye H25.042 Nuclear sclerotic cataract of left eye H25.12 Cortical cataract of left eye H26.9 Conductive hearing loss in right ear 02/23/15 H90.11 Mixed conductive and sensorineural hearing loss of right ear with restricted hearing of left ear 07/25/16 H90.A31 Sensorineural hearing loss (SNHL) of left ear with restricted hearing of right ear 07/25/16 H90.A22 Sensorineural hearing loss, bilateral 02/25/17 H90.3 Medical History Medical History (Updated 02/10/22 @ 17:55 by Magdaleno Veloz MD) A-fib Allergic rhinitis Asthma Bunion CAD (coronary artery disease) CKD (chronic kidney disease) Diabetes mellitus Diverticulitis Elevated TSH Facial skin lesion Hiatal hernia HTN (hypertension) Hyperlipidemia Hypocalcemia Insomnia Lactose intolerance Leg cramps Memory deficit Mitral valve stenosis Osteoporosis Subclinical hypothyroidism Tricuspid valve regurgitation Type 2 diabetes mellitus Medical History Comments:: has a CPAP machine but doesnt use it Surgical History Surgical History H/O adenoidectomy History of bladder suspension procedure History of tonsillectomy Mitral valve replaced Tobacco Smoking/Tobacco Use Status: Never Alcohol Alcohol Intake: never Substance Use Substance use: Never Substance use type: does not use Vital Signs and Lab Results Vital Signs Most Recent Vital Signs in EMR: Temp Pulse Resp BP Pulse Ox 36.4 C L 79 16 161/80 H 94 02/11/22 11:18 02/11/22 11:18 02/11/22 11:18 02/11/22 11:18 02/11/22 11:18 Lab Results Blood Type / Crossmatch: No Data to Display Complete Blood Count: No Data to Display Complete Metabolic Panel: No Data to Display Liver Function Panel: No Data to Display Coagulation Panel: INR International Normalized Ratio 3.8 (0.9-1.1) H 02/07/22 11 :05 Prothrombin Time 35.3 sec (9.3-11.0) H 02/07/22 11:05 Cardiac Panel: No Data to Display Arterial Blood Gas: No Data to Display Venous Blood Gas: No Data to Display Pancreas Panel: No Data to Display Thyroid Panel: No Data to Display Infectious Disease: Coronavirus (COVID-19)(PCR) Negative (Negative) 01/21/22 10:45 Coronavirus 2019 Source Nasopharynx 01/21/22 10:45 Blood Cultures: No Data to Display Toxicology Panel: No Data to Display Imaging and Studies Imaging and Studies Study information below may be from another EMR and interpreted by another provider. Please see original notes in EMR for more complete details. EKG Summary: Conclusion Atrial fibrillation...? atrial activity Left anterior fascicular block IVCD LVH with secondary repolarization abnormality...multi-LVH criteria, abnrm ST-T 01/22/22 Echocardiogram Summary: Conclusion Left ventricle is normal in size. Systolic function is borderline. EF is 50 to 55%. There are no segmental wall motion abnormalities The right ventricle appears normal in size and systolic function Both atria are moderately enlarged The aortic valve is calcified with trace regurgitation There is a mechanical mitral valve prosthesis. There is trace to mild mitral regurgitation The tricuspid valve is structurally normal with moderate to severe regurgitation. Estimated right ventricular systolic pressure is 44 mmHg 11/16/21 Anesthesia Assessment and Plan Anesthesia History Personal History: No History of Anesthesia Complications Family History: No Family History of Anesthesia Complications Exercise Tolerance Exercise Tolerance: Metabolic Equivalents<4 Cardiac & Pulmonary Exam Cardiac Exam: Normal S1/S2 Heart Sounds Pulmonary Exam: Clear Bilateral Breath Sounds Implantable Cardiac Device Does patient have a Pacemaker or an ICD?: No Airway Exam Known Difficult Airway: No Mallampati Class: 1 Mouth Opening: Normal (> 3cm) Thyromental Distance: Greater than 3 cm Neck Range of Motion: Full ROM Neck Circumference: Normal Teeth Condition: Removable Dentures/Plates Upper ASA Classification ASA Score: ASA 3 Emergency Case?: No NPO Status NPO Status: NPO Clears >2 hours, Solids >8 hours Anesthesia Plan Resuscitation Status: Full Code Anesthesia Technique: MAC Anesthesia Airway Planned: Natural Airway Monitors Used: Standard Monitors Preoperative Comments:: 81 yo female for repeat cataract. Sig PMHx: afib, asthma, CAD, CKD, DM, HTN, hiatal hernia, DM2,never smoker/etoh. Previous Cat: with MKO. does not feel she needs an MKO this time.
[2022-02-11] MEDS: Tropicam./Phenyleph. (1/2.5%) 5 ML BTL OD ×3 (11:10→11:21)
[2022-02-11 11:18] VITALS: BP 161/80; PULSE 79; RESP 16; TEMP 36.4; O2SAT 94
[2022-02-11 11:29] VITALS: BMI 29.5
[2022-02-11] MEDS: Tetracaine 0.5% 4 ML BTL OD (11:40)
[2022-02-11] MEDS: Lidocaine 1% Multi-Dose 10 ML VIAL (11:44)
[2022-02-11] MEDS: Balanced Salt Soln.-PLUS 500 ML BAG (11:48)
[2022-02-11] MEDS: Lidocaine 2% Jelly 6 ML SYR (11:49)
[2022-02-11] MEDS: Duovisc Viscoelastic System EACH 1 EACH (11:49)
[2022-02-11] MEDS: Povidone-Iodine Ophth 30 ML BTL (11:50)
[2022-02-11 12:08] VITALS: BP 173/90; PULSE 72; RESP 16; TEMP 36.3; O2SAT 97
--- NOTE | 2022-02-11 12:10 | W.PM.DSUDISC ---
Discharge Plan Disposition Patient Disposition: HOME Condition: Good Discharge Details Attending Provider: Magdaleno Veloz Primary Care Provider: Mell Cueto Home Meds and New Rx's Prescriptions: No Action losartan 100 mg tablet 50 mg PO QAM Label Comments: TK 1 T PO D atenolol 50 mg tablet 50 mg PO QAM fluticasone propion-salmeterol [Advair Diskus] 500-50 mcg/dose blister with device 1 inh inhalation BID temazepam 15 mg capsule 15 mg PO QHS PRN albuterol sulfate [ProAir HFA] 90 mcg/actuation Hfa Aerosol Inhaler 2 puff inhalation QID fluticasone propion-salmeterol [Advair Diskus] 500-50 mcg/dose blister with device 1 inh INHALATION BID Label Comments: INL 1 PUFF PO BID furosemide 80 mg tablet 80 mg PO QAM Label Comments: TK 1 T PO QD cetirizine 10 mg tablet 10 mg PO QAM Label Comments: TK 1 T PO D PRN cholecalciferol (vitamin D3) [Vitamin D3] 25 mcg (1,000 unit) tablet 1,000 unit PO QAM Label Comments: TAKE 1 TABLET BY MOUTH ONCE DAILY atorvastatin [Lipitor] 10 mg Tablet 10 mg PO QPM potassium chloride 10 mEq tablet,ER particles/crystals 10 meq PO QAM Label Comments: TK 1 T PO QD zolpidem 5 mg tablet 5 mg PO HS warfarin 5 mg tablet 2.5 - 5 mg PO DIRECTED PRN Label Comments: TK 1 T PO D UTD Rx Instructions: 2.5 M/Th - 5 all other days albuterol sulfate [Ventolin HFA] 90 mcg/actuation HFA aerosol inhaler 2 puff INHALATION PRN PRN Label Comments: INL 2 PFS PO Q 6 H PRN (DME) pen needle, diabetic [BD Ultra-Fine Mini Pen Needle] 31 gauge x 3/16 needle MISCELLANEOUS Label Comments: INJECT INSULIN SUBCUTANEOUSLY DIRECTED. ONCE A DAY albuterol sulfate [Ventolin HFA] 90 mcg/actuation HFA aerosol inhaler 2 puff INHALATION Q6H Label Comments: INL 2 PFS PO Q 6 H PRN fluticasone propionate [Flonase Allergy Relief] 50 mcg/actuation [place],Suspension 2 spray INTRANASAL DAILY PRN mupirocin 2 % ointment 1 applic TOPICAL BID PRN Label Comments: APPLY TO AFFECTED AREA TWICE DAILY FOR 1 WEEK OR UNTIL RESOLVED alendronate 70 mg tablet 70 mg PO DIRECTED Label Comments: TK 1 T PO WEEKLY ON AN EMPTY STOMACH WITH BIG GLASS OF WATER DONT LIE DOWN FOR AN HOUR Rx Instructions: weekly Discharge Instructions Stand Alone Forms: Post-op Topical Cataract, Emiliano Beard (DSU) Discharge Orders Discharge Orders: Discharge Order (Routine); Ordered 02/11/22 Ordered By: Magdaleno Veloz DS: Diagnosis Discharge Diagnosis (1) Posterior subcapsular age-related cataract, right eye: Status: Resolved (2) Cortical cataract of right eye: Status: Resolved (3) Nuclear sclerotic cataract of right eye: Status: Resolved
--- NOTE | 2022-02-11 12:11 | ROE_ITS ---
Date of service: 02/11/22 Time of Service: 12:11 Operative Note Operative Note DATE OF PROCEDURE: 02/11/22 PRE-OP DIAGNOSIS: Nuclear/cortical/posterior subcapsular cataract, right eye Poor red reflex, right eye secondary to cataract POST-OP DIAGNOSIS: same PROCEDURE: Cataract extraction using phacoemulsification with intraocular lens implant, left eye, using capsular staining with Vision Blue SURGEON: Magdaleno Veloz ANESTHESIA TYPE: Local By Surgeon and MAC Refer to Anesthesia Record COMPLICATIONS: None Patient was transported to: same day Patient's condition: stable Implants: [employer] Frank / [employer] Tecnis [id number] Indications: Progressive decreased vision due to cataract, left eye, with poor red reflex Procedure Description: CATARACT SURGERY OPERATIVE REPORT PREOPERATIVE DIAGNOSIS: 1. Nuclear/cortical/posterior subcapsular cataract, right eye 2. Poor red reflex secondary to #1 POSTOPERATIVE DIAGNOSIS: Same OPERATION: 1. Cataract extraction using phacoemulsification with posterior chamber intraocular lens implant, left eye. 2. Capsular staining with Vision Blue IOL: IOL Vacuum Drier Tender/Model: Frank & Frank / ADAM Tecnis [id number] IOL Power: + 22.5 diopters IOL Serial Number: [id number] Optic Diameter: 6.0 mm Haptic/Overall Diameter: 13.0 mm PHACO INFO: Shailesh TechTurnurion Vision System with OZil and Active Fluidics Cumulative Dispersed Energy (CDE): 6.81 seconds SURGEON: Magdaleno Veloz MD, MATTHEW ANESTHESIA: Monitored A [facility] (MAC), with local sub-tenon's anesthetic infiltration COMPLICATIONS: None SPECIMENS: None INDICATIONS FOR PROCEDURE: Patient is an 81-year-old lady with history of diminished visual acuity in both eyes secondary to development of significant bilateral nuclear/cortical/posterior subcapsular cataract. She has already undergone cataract surgery in her left eye and is doing well postoperatively. She now presents for cataract surgery in the right eye. PROCEDURE: The correct surgical eye was identified and marked as the left eye and the pupil was dilated in the preoperative area using mydriatics and cycloplegics. The dilated pupil size was 7.0 mm. The patient elected to proceed without oral sedation. The patient was brought to the operating room where cardiopulmonary monitoring was instituted and surgical time-out was performed, confirming the correct operative eye and IOL power. Topical anesthesia was administered and ophthalmic povidone-iodine 5% was instilled into the conjunctival fornices. Lidocaine gel was applied to the cornea and the yvonne-ocular area was prepped with Betadine 10% solution and draped in the usual sterile fashion for intraocular surgery, including an aperture drape. A Tegaderm transparent film dressing was cut in half and used to cover the lashes and lid margins. Care was taken to sequester the lashes and lid margins under the Tegaderm dressing. A lid speculum was placed between the lids of the operative eye and the Shailesh LuxOR Revalia operating microscope was maneuvered into position. Samaria scissors were then used to make a conjunctival buttonhole approximately 6mm posterior to the limbus in the inferonasal quadrant. Blunt dissection was carried out to expose bare sclera, and a blunt-tipped sub-tenon?s anesthesia cannula was introduced and passed posteriorly along the globe where non- preserved plain lidocaine was injected into posterior sub-Tenon?s space. A sideport knife was used to make a paracentesis port superiorly/superiortemporally. Intraocular phenylephrine/lidocaine was injected int the anterior chamber.. Air was then injected into the anterior chamber, followed by Vision Blue, which was painted over the anterior capsule and then irrigated out using BSS. The anterior chamber was filled with viscoelastic. A keratome knife was used to create a 2-plane near clear corneal tunnel extending approximately 2 mm into clear cornea temporally. A flap was raised on the anterior capsule and capsulorhexis forceps were used to complete a continuous curvilinear capsulorhexis of 5.5 mm. Balanced salt solution was then used to perform cortical cleaving hydrodissection and nuclear hydrodelineation until the lens could be freely rotated within the capsular bag. The lens nucleus was then disassembled and removed within the capsular bag and iris plane using phacoemulsification. Residual cortical material was removed using the 45-degree angled silicone I/A tip with 0.3mm port. The posterior capsule was carefully polished to remove as much residual lens epithelial cells as safely possible. The capsular bag was then inflated and the anterior chamber deepened with viscoelastic. The lens implant described above was inserted into the capsular bag using the ADAM [place] Injector. A Kuglen hook was used to dial the IOL into position. Residual viscoelastic was then removed first from posterior to the IOL, then from the anterior chamber using the I/A handpiece. The lens implant was noted to center nicely within the capsular bag. The incisions were stromally hydrated, and the anterior chamber was reformed using BSS. Then 0.5cc of moxifloxacin 1.0mg/ml were injected into the capsular bag and anterior chamber. The incisions were checked with a Weck spear and found to be secure. Several drops of ophthalmic povidone-iodine 5% were then applied to the eye followed by two drops of Imprimis combination prednisolone/moxifloxacin/nepafenac solution. The drapes were removed and a clear plastic protective eye shield was placed over the eye. The patient was then returned to Same Day Surgery in stable condition.
--- NOTE | 2022-02-11 13:03 | W.PM.OP ---
Date of service: 02/11/22 Time of Service: 12:11 Operative Note Operative Note DATE OF PROCEDURE: 02/11/22 PRE-OP DIAGNOSIS: Nuclear/cortical/posterior subcapsular cataract, right eye Poor red reflex, right eye secondary to cataract POST-OP DIAGNOSIS: same PROCEDURE: Frank and Frank / [employer] Tecnis [id number] SURGEON: Magdaleno Veloz ANESTHESIA TYPE: Local By Surgeon and MAC Refer to Anesthesia Record PATHOLOGY: none sent COMPLICATIONS: None Patient was transported to: same day Patient's condition: stable Implants: Frank and Frank / [employer] Opt[employer] Tecnis [id number] Indications: Progressive visual loss due to cataract, right eye Procedure Description: CATARACT SURGERY OPERATIVE REPORT PREOPERATIVE DIAGNOSIS: 1. Nuclear/cortical/posterior subcapsular cataract, right eye 2. Poor red reflex secondary to #1 POSTOPERATIVE DIAGNOSIS: Same OPERATION: 1. Cataract extraction using phacoemulsification with posterior chamber intraocular lens implant, right eye. 2. Capsular staining with Vision Blue IOL: IOL Umbrella Frame Maker/Model: Frank & Frank / ADAM Tecnis [id number] IOL Power: + 22.5 diopters IOL Serial Number: [id number] Optic Diameter: 6.0mm Haptic/Overall Diameter: 13.0mm PHACO INFO: Shailesh Centurion Vision System with OZil and Active Fluidics Cumulative Dispersed Energy (CDE): 6.81 seconds SURGEON: Magdaleno Veloz MD, MATTHEW ANESTHESIA: Monitored Anesthesia Care (MAC), with local sub-tenon's anesthetic infiltration COMPLICATIONS: None SPECIMENS: None INDICATIONS FOR PROCEDURE: The patient is an 81-year-old lady with history of diminished visual acuity in both eyes secondary to the development of significant bilateral nuclear/cortical/posterior subcapsular cataract. She has already undergone cataract surgery in her left eye and is doing well postoperatively. She now presents for cataract surgery in the right eye. PROCEDURE: The correct surgical eye was identified and marked as the right eye and the pupil was dilated in the preoperative area using mydriatics and cycloplegics. The dilated pupil size was 7.0 mm. The patient elected to proceed without oral sedation. The patient was brought to the operating room where cardiopulmonary monitoring was instituted and surgical time-out was performed, confirming the correct operative eye and IOL power. Topical anesthesia was administered and ophthalmic povidone-iodine 5% was instilled into the conjunctival fornices. Lidocaine gel was applied to the cornea and the yvonne-ocular area was prepped with Betadine 10% solution and draped in the usual sterile fashion for intraocular surgery, including an aperture drape. A Tegaderm transparent film dressing was cut in half and used to cover the lashes and lid margins. Care was taken to sequester the lashes and lid margins under the Tegaderm dressing. A lid speculum was placed between the lids of the operative eye and the Shailesh LuxOR Revalia operating microscope was maneuvered into position. Samaria scissors were then used to make a conjunctival buttonhole approximately 6mm posterior to the limbus in the inferonasal quadrant. Blunt dissection was carried out to expose bare sclera, and a blunt-tipped sub-tenon?s anesthesia cannula was introduced and passed posteriorly along the globe where non-preserved plain lidocaine was injected into posterior sub-Tenon?s space. A sideport knife was used to make a paracentesis port inferotemporally. Intraocular phenylephrine/lidocaine was injected into the anterior chamber. Air was injected into the anterior chamber, followed by Vision Blue, which was painted over the anterior capsule and then irrigated out with BSS. The anterior chamber was filled with viscoelastic. A keratome knife was used to create a 2-plane near clear corneal tunnel extending approximately 2 mm into clear cornea superior temporally.. A flap was raised on the anterior capsule and capsulorhexis forceps were used to complete a continuous curvilinear capsulorhexis of 5.5 mm. Balanced salt solution was then used to perform cortical cleaving hydrodissection and nuclear hydrodelineation until the lens could be freely rotated within the capsular bag. The lens nucleus was then disassembled and removed within the capsular bag and iris plane using phacoemulsification. Residual cortical material was removed using the I/A handpiece. The posterior capsule was carefully polished to remove as much residual lens epithelial cells as safely possible. The capsular bag was then inflated and the anterior chamber deepened with viscoelastic. The lens implant described above was inserted into the capsular bag using the ADAM [place] Injector. A Kuglen hook was used to dial the IOL into position. Residual viscoelastic was then removed first from posterior to the IOL, then from the anterior chamber using the I/A handpiece. The lens implant was noted to center nicely within the capsular bag. The incisions were stromally hydrated, and the anterior chamber was reformed using BSS. Then 0.5cc of moxifloxacin 1.0mg/ml were injected into the capsular bag and anterior chamber. The incisions were checked with a Weck spear and found to be secure. Several drops of ophthalmic povidone-iodine 5% were then applied to the eye followed by two drops of Imprimis combination prednisolone/moxifloxacin/nepafenac solution. The drapes were removed and a clear plastic protective eye shield was placed over the eye. The patient was then returned to Same Day Surgery in stable condition.
--- NOTE | 2022-02-11 13:48 | W.ANESPOSTOP ---
Postoperative Evaluation Date, Time and Location Date Performed: 02/11/22 Time Performed: 12:08 Patient Location: Day Surgery Unit Vital Signs Most Recent Imported Vital Signs: Most Recent Vital Signs Temp Pulse Resp BP Pulse Ox 36.3 C L 72 16 173/90 H 97 02/11/22 12:08 02/11/22 12:08 02/11/22 12:08 02/11/22 12:08 02/11/22 12:08 Pain Score Most Recent Pain Score: Most Recent Pain Score Pain Level 0 02/11/22 12:08 Assessment Mental Status: Awake (Alert & Oriented to Patient Baseline) Airway and Respiratory Function: Patent airway with normal (patient baseline) respiratory exam Cardiovascular Function: Hemodynamically Stable Hydration Status: Adequately Hydrated Nausea & Vomiting: No Nausea or Vomiting Pain: Pt. Denies Any Pain Peripheral Nerve Block: Patient did not receive a nerve block
== END 2022-02-11 12:50 | disposition home or self-care (01) ==
PROVIDERS: PCP Family Medicine; Visit Provider Ophthalmology
PROC: (CPT 66982; principal; 2022-02-11 12:00)
DX: H25.041 Posterior subcapsular polar age-related cataract, right eye (principal); H26.8 Other specified cataract; E11.22 Type 2 diabetes mellitus with diabetic chronic kidney disease; I10 Essential (primary) hypertension; N18.9 Chronic kidney disease, unspecified
CPT/HCPCS: 66982; V2632

== ENCOUNTER 2022-02-15 01:51 | Outpatient (CLI) | payer MEDICARE, MEDICAID, SELFPAY ==
[2022-02-15 11:25] LABS: Prothrombin Time 28.4 sec (9.3-11.0)
== END 2022-02-15 01:52 | disposition home or self-care (01) ==
LOC: LBO 01:52
PROVIDERS: PCP Family Medicine; Visit Provider Family Medicine
DX: I48.91 Unspecified atrial fibrillation (principal)
CPT/HCPCS: 36415; 85610

== ENCOUNTER → 2022-02-26 14:47 | Outpatient (CLI) | payer MEDICARE, MEDICAID, SELFPAY ==
--- NOTE | 2022-02-26 14:25 | DI.RAD_ITS ---
Exam(s) XR CHEST 2V PA LATERAL EXAM: XR CHEST 2V PA LATERAL CLINICAL HISTORY: COVID 19 U07.1 COUGH R05.8 TECHNIQUE: 2D digital imaging was performed of the chest. Two images were obtained. PA and lateral views were obtained. COMPARISON: No exams were available for comparison FINDINGS: MEDIASTINUM: Normal. HEART: Mild cardiomegaly. There is a mitral valve replacement. PULMONARY VASCULATURE: Normal. LUNGS: Clear. COPD. PLEURAL SPACE: No pleural effusion or pneumothorax. BONE:Within normal limits for the patient's age. OTHER FINDINGS:Normal. IMPRESSION: No acute pulmonary findings. DATA REPOSITORY: RADIATION DOSE DELIVERED:
== END ==
PROVIDERS: PCP Family Medicine; Visit Provider Nurse Practitioner Family
DX: U07.1 COVID-19 (principal); R05.8 Other specified cough
CPT/HCPCS: 71046

== ENCOUNTER 2022-03-12 10:28 | Outpatient (REF) | payer MEDICARE, MEDICAID, SELFPAY | END 2022-03-12 10:29 | disposition home or self-care (01) | LOC: LBN 10:28 | PROVIDERS: PCP Family Medicine; Visit Provider Nurse Practitioner Family | DX: J01.80 Other acute sinusitis (principal); R05.8 Other specified cough; Z86.16 Personal history of COVID-19 | CPT/HCPCS: 87077; 87070; 87205 ==

== ENCOUNTER 2022-03-21 04:00 | Outpatient (CLI) | payer MEDICARE, MEDICAID, SELFPAY ==
[2022-03-21 13:58] LABS: INR 3.4 (0.9-1.1); Prothrombin Time 31.7 sec (9.3-11.0)
== END 2022-03-21 04:01 | disposition home or self-care (01) ==
LOC: LBO 04:00
PROVIDERS: PCP Family Medicine; Visit Provider Family Medicine
DX: Z79.01 Long term (current) use of anticoagulants (principal); I48.91 Unspecified atrial fibrillation
CPT/HCPCS: 36415; 82565; 85610

== ENCOUNTER 2022-04-12 01:25 | Outpatient (CLI) | payer MEDICARE, MEDICAID, SELFPAY ==
[2022-04-12 11:36] LABS: INR 2.3 (0.9-1.1); Prothrombin Time 21.8 sec (9.3-11.0)
== END 2022-04-12 01:26 | disposition home or self-care (01) ==
LOC: LBO 01:25
PROVIDERS: PCP Family Medicine; Visit Provider Family Medicine
DX: I48.91 Unspecified atrial fibrillation (principal); Z79.01 Long term (current) use of anticoagulants
CPT/HCPCS: 36415; 85610

== ENCOUNTER 2022-04-19 11:03 | Outpatient (CLI) | payer MEDICARE, MEDICAID, SELFPAY ==
[2022-04-19 11:09] LABS: Prothrombin Time 28.1 sec (9.3-11.0)
== END 2022-04-19 11:04 | disposition home or self-care (01) ==
LOC: LBO 11:05
PROVIDERS: PCP Family Medicine; Visit Provider Family Medicine
DX: I48.91 Unspecified atrial fibrillation (principal); Z79.01 Long term (current) use of anticoagulants
CPT/HCPCS: 36415; 85610

== ENCOUNTER 2022-05-09 01:37 | Outpatient (CLI) | payer MEDICARE, MEDICAID, SELFPAY ==
[2022-05-09 11:49] LABS: INR 2.7 (0.9-1.1); Prothrombin Time 25.4 sec (9.3-11.0)
== END 2022-05-09 01:38 | disposition home or self-care (01) ==
LOC: LBO 01:37
PROVIDERS: PCP Family Medicine; Visit Provider Family Medicine
DX: I48.91 Unspecified atrial fibrillation (principal); Z79.01 Long term (current) use of anticoagulants
CPT/HCPCS: 36415; 85610

== ENCOUNTER 2022-06-06 02:50 | Outpatient (CLI) | payer MEDICARE, MEDICAID, SELFPAY ==
[2022-06-06 11:28] LABS: INR 2.3 (0.9-1.1); Prothrombin Time 21.7 sec (9.3-11.0)
== END 2022-06-06 02:51 | disposition home or self-care (01) ==
LOC: LBO 02:50
PROVIDERS: PCP Family Medicine; Visit Provider Family Medicine
DX: I48.91 Unspecified atrial fibrillation (principal); Z79.01 Long term (current) use of anticoagulants
CPT/HCPCS: 36415; 85610

== ENCOUNTER 2022-06-13 04:15 | Outpatient (CLI) | payer MEDICARE, MEDICAID, SELFPAY ==
[2022-06-13 11:02] LABS: INR 2.7 (0.9-1.1); Prothrombin Time 25.3 sec (9.3-11.0)
== END 2022-06-13 04:16 | disposition home or self-care (01) ==
LOC: LBO 04:15
PROVIDERS: PCP Family Medicine; Visit Provider Family Medicine
DX: I48.91 Unspecified atrial fibrillation (principal); Z79.01 Long term (current) use of anticoagulants
CPT/HCPCS: 36415; 85610

== ENCOUNTER 2022-07-03 04:05 | Outpatient (CLI) | payer MEDICARE, MEDICAID, SELFPAY ==
[2022-07-03 12:55] LABS: INR 0.9 (0.9-1.1); Prothrombin Time 9.4 sec (9.3-11.0)
== END 2022-07-03 04:06 | disposition home or self-care (01) ==
LOC: LBO 04:06
PROVIDERS: PCP Family Medicine; Visit Provider Family Medicine
DX: I48.91 Unspecified atrial fibrillation (principal); Z79.01 Long term (current) use of anticoagulants
CPT/HCPCS: 36415; 85610

== ENCOUNTER 2022-07-11 01:48 | Outpatient (CLI) | payer MEDICARE, MEDICAID, SELFPAY ==
[2022-07-11 13:08] LABS: INR 1.4 (0.9-1.1); Prothrombin Time 13.8 sec (9.3-11.0)
== END 2022-07-11 01:49 | disposition home or self-care (01) ==
LOC: LBO 01:48
PROVIDERS: PCP Family Medicine; Visit Provider Family Medicine
DX: Z79.01 Long term (current) use of anticoagulants (principal); I48.91 Unspecified atrial fibrillation
CPT/HCPCS: 36415; 85610

== ENCOUNTER 2022-07-17 01:50 | Outpatient (CLI) | payer MEDICARE, MEDICAID, SELFPAY ==
[2022-07-17 11:31] LABS: INR 2.4 (0.9-1.1); Prothrombin Time 23.8 sec (9.3-11.0)
== END 2022-07-17 01:51 | disposition home or self-care (01) ==
LOC: LBO 01:50
PROVIDERS: PCP Family Medicine; Visit Provider Family Medicine
DX: I48.91 Unspecified atrial fibrillation (principal); Z79.01 Long term (current) use of anticoagulants
CPT/HCPCS: 36415; 85610

== ENCOUNTER 2022-07-26 02:05 | Outpatient (CLI) | payer MEDICARE, MEDICAID, SELFPAY ==
[2022-07-26 12:05] LABS: Prothrombin Time 41.2 sec (9.3-11.0)
[2022-07-26 13:40] LABS: INR 4.1 (0.9-1.1)
== END 2022-07-26 02:06 | disposition home or self-care (01) ==
LOC: LBO 02:06
PROVIDERS: PCP Family Medicine; Visit Provider Family Medicine
DX: Z79.01 Long term (current) use of anticoagulants (principal); I48.91 Unspecified atrial fibrillation
CPT/HCPCS: 36415; 85610

== ENCOUNTER 2022-08-02 01:40 | Outpatient (CLI) | payer MEDICARE, MEDICAID, SELFPAY ==
[2022-08-02 10:58] LABS: INR 2.9 (0.9-1.1); Prothrombin Time 29.7 sec (9.3-11.0)
== END 2022-08-02 01:41 | disposition home or self-care (01) ==
LOC: LBO 01:40
PROVIDERS: PCP Family Medicine; Visit Provider Family Medicine
DX: I48.91 Unspecified atrial fibrillation (principal); Z79.01 Long term (current) use of anticoagulants
CPT/HCPCS: 36415; 85610

== ENCOUNTER 2022-08-08 03:00 | Outpatient (CLI) | payer MEDICARE, MEDICAID, SELFPAY ==
[2022-08-08 11:06] LABS: INR 2.5 (0.9-1.1); Prothrombin Time 25.3 sec (9.3-11.0)
== END 2022-08-08 03:01 | disposition home or self-care (01) ==
LOC: LBO 03:00
PROVIDERS: PCP Family Medicine; Visit Provider Family Medicine
DX: I48.91 Unspecified atrial fibrillation (principal); Z79.01 Long term (current) use of anticoagulants
CPT/HCPCS: 36415; 85610

== ENCOUNTER 2022-08-15 02:08 | Outpatient (CLI) | payer MEDICARE, MEDICAID, SELFPAY ==
[2022-08-15 11:45] LABS: Prothrombin Time 21.7 sec (9.3-11.0)
[2022-08-15 11:52] LABS: INR 2.1 (0.9-1.1)
== END 2022-08-15 02:09 | disposition home or self-care (01) ==
LOC: LBO 02:08
PROVIDERS: PCP Family Medicine; Visit Provider Family Medicine
DX: I48.91 Unspecified atrial fibrillation (principal); Z79.01 Long term (current) use of anticoagulants
CPT/HCPCS: 36415; 85610

== ENCOUNTER 2022-08-29 02:34 | Outpatient (CLI) | payer MEDICARE, MEDICAID, SELFPAY ==
[2022-08-29 11:35] LABS: INR 2.7 (0.9-1.1); Prothrombin Time 27.6 sec (9.3-11.0)
== END 2022-08-29 02:35 | disposition home or self-care (01) ==
LOC: LBO 02:34
PROVIDERS: PCP Family Medicine; Visit Provider Family Medicine
DX: I48.91 Unspecified atrial fibrillation (principal); Z79.01 Long term (current) use of anticoagulants
CPT/HCPCS: 36415; 85610

== ENCOUNTER 2022-09-11 16:22 | Outpatient (REF) | payer MEDICARE, MEDICAID, SELFPAY ==
[2022-09-11 20:03] LABS: COMMENT (LAB VIEW ONLY) 25.04 mg/dL; Microalb ug/mg Crea 55.1 ug/mg Cr
== END 2022-09-11 16:23 | disposition home or self-care (01) ==
LOC: NCHCN 16:22
PROVIDERS: PCP Family Medicine; Visit Provider Family Medicine
DX: E11.9 Type 2 diabetes mellitus without complications (principal); I10 Essential (primary) hypertension; E03.9 Hypothyroidism, unspecified; N18.31 Chronic kidney disease, stage 3a
CPT/HCPCS: 82043; 82570

== ENCOUNTER 2022-09-26 14:47 | Outpatient (CLI) | payer MEDICARE, MEDICAID, SELFPAY ==
[2022-09-26 12:19] LABS: INR 1.8 (0.9-1.1); Prothrombin Time 18.5 sec (9.3-11.0)
== END 2022-09-26 14:48 | disposition home or self-care (01) ==
LOC: LBO 14:52
PROVIDERS: PCP Family Medicine; Visit Provider Family Medicine
DX: I48.91 Unspecified atrial fibrillation (principal); Z79.01 Long term (current) use of anticoagulants
CPT/HCPCS: 36415; 85610

== ENCOUNTER 2022-10-03 01:48 | Outpatient (CLI) | payer MEDICARE, MEDICAID, SELFPAY ==
[2022-10-03 11:51] LABS: Prothrombin Time 42.2 sec (9.3-11.0)
[2022-10-03 12:04] LABS: INR 4.2 (0.9-1.1)
== END 2022-10-03 01:49 | disposition home or self-care (01) ==
LOC: LBO 01:48
PROVIDERS: PCP Family Medicine; Visit Provider Family Medicine
DX: I48.91 Unspecified atrial fibrillation (principal); Z79.01 Long term (current) use of anticoagulants
CPT/HCPCS: 36415; 85610

== ENCOUNTER 2022-10-09 10:51 | Outpatient (CLI) | payer MEDICARE, MEDICAID, SELFPAY ==
[2022-10-09 11:19] LABS: INR 3.4 (0.9-1.1); Prothrombin Time 34.3 sec (9.3-11.0)
== END 2022-10-09 10:52 | disposition home or self-care (01) ==
LOC: LBO 10:51
PROVIDERS: PCP Family Medicine; Visit Provider Family Medicine
DX: I48.91 Unspecified atrial fibrillation (principal); Z79.01 Long term (current) use of anticoagulants
CPT/HCPCS: 36415; 85610

== ENCOUNTER 2022-10-24 12:21 | Outpatient (CLI) | payer MEDICARE, MEDICAID, SELFPAY ==
[2022-10-24 11:33] LABS: Prothrombin Time 21.7 sec (9.3-11.0)
[2022-10-24 11:38] LABS: INR 2.1 (0.9-1.1)
== END 2022-10-24 12:22 | disposition home or self-care (01) ==
LOC: LBO 12:22
PROVIDERS: PCP Family Medicine; Visit Provider Family Medicine
DX: I48.91 Unspecified atrial fibrillation (principal); Z79.01 Long term (current) use of anticoagulants
CPT/HCPCS: 36415; 85610

== ENCOUNTER 2022-10-31 04:47 | Outpatient (CLI) | payer MEDICARE, MEDICAID, SELFPAY ==
[2022-10-31 11:32] LABS: INR 3.1 (0.9-1.1); Prothrombin Time 31.2 sec (9.3-11.0)
== END 2022-10-31 04:48 | disposition home or self-care (01) ==
LOC: LBO 04:48
PROVIDERS: PCP Family Medicine; Visit Provider Family Medicine
DX: I48.91 Unspecified atrial fibrillation (principal); Z79.01 Long term (current) use of anticoagulants
CPT/HCPCS: 36415; 85610

== ENCOUNTER 2022-11-28 04:02 | Outpatient (CLI) | payer MEDICARE, MEDICAID, SELFPAY ==
[2022-11-28 11:26] LABS: Prothrombin Time 30.7 sec (9.3-11.0)
== END 2022-11-28 04:03 | disposition home or self-care (01) ==
LOC: LBO 04:02
PROVIDERS: PCP Family Medicine; Visit Provider Family Medicine
DX: I48.91 Unspecified atrial fibrillation (principal); Z79.01 Long term (current) use of anticoagulants
CPT/HCPCS: 36415; 85610

== ENCOUNTER 2022-12-26 03:59 | Outpatient (CLI) | payer MEDICARE, MEDICAID, SELFPAY ==
[2022-12-26 16:44] LABS: Prothrombin Time 30.4 sec (9.3-11.0)
== END 2022-12-26 04:00 | disposition home or self-care (01) ==
LOC: LBO 03:59
PROVIDERS: PCP Family Medicine; Visit Provider Family Medicine
DX: Z79.01 Long term (current) use of anticoagulants (principal); I48.91 Unspecified atrial fibrillation
CPT/HCPCS: 36415; 85610

== ENCOUNTER 2023-01-23 04:12 | Outpatient (CLI) | payer MEDICARE, MEDICAID, SELFPAY ==
[2023-01-23 11:46] LABS: INR 3.2 (0.9-1.1); Prothrombin Time 32.4 sec (9.3-11.0)
[2023-01-23 12:10] LABS: Hemoglobin A1C 7.8 % (<5.7)
[2023-01-23 18:10] LABS: Anion Gap 9.9 mmol/L (3-11); BUN 27 mg/dL (7-18); CO2 28.1 mmol/L (21.0-32.0); CREATININE 1.1 mg/dL (0.55-1.02); Calcium 9.3 mg/dL (8.5-10.1); Chloride 100 mmol/L (98-107); Estimated GFR 49.86 (mL/min/1.73m2); Glucose 189 mg/dL (74-106); Potassium 3.8 mmol/L (3.5-5.1); Sodium 138 mmol/L (136-145); TSH (W/Ref FT4) 5.61 uIU/mL (0.36-3.74)
[2023-01-23 18:34] LABS: FREE T4 1.05 ng/dL (0.76-1.46)
== END 2023-01-23 04:13 | disposition home or self-care (01) ==
LOC: LBO 04:12
PROVIDERS: PCP Family Medicine; Visit Provider Family Medicine
DX: E11.9 Type 2 diabetes mellitus without complications (principal); I48.91 Unspecified atrial fibrillation; Z79.01 Long term (current) use of anticoagulants; I10 Essential (primary) hypertension; N18.31 Chronic kidney disease, stage 3a
CPT/HCPCS: 36415; 80048; 83036; 84439; 84443; 85610

== ENCOUNTER 2023-02-20 03:51 | Outpatient (CLI) | payer MEDICARE, MEDICAID, SELFPAY ==
[2023-02-20 11:36] LABS: Prothrombin Time 56.5 sec (9.3-11.0)
[2023-02-20 12:27] LABS: INR 5.6 (0.9-1.1)
== END 2023-02-20 03:52 | disposition home or self-care (01) ==
LOC: LBO 03:51
PROVIDERS: PCP Family Medicine; Visit Provider Family Medicine
DX: I48.91 Unspecified atrial fibrillation (principal); Z79.01 Long term (current) use of anticoagulants
CPT/HCPCS: 36415; 85610

== ENCOUNTER 2023-02-24 02:10 | Outpatient (CLI) | payer MEDICARE, MEDICAID, SELFPAY ==
[2023-02-24 10:41] LABS: INR 1.4 (0.9-1.1); Prothrombin Time 14.5 sec (9.3-11.0)
== END 2023-02-24 02:11 | disposition home or self-care (01) ==
LOC: LBO 02:10
PROVIDERS: PCP Family Medicine; Visit Provider Family Medicine
DX: I48.91 Unspecified atrial fibrillation (principal); Z79.01 Long term (current) use of anticoagulants
CPT/HCPCS: 36415; 85610

== ENCOUNTER 2023-03-04 01:59 | Outpatient (CLI) | payer MEDICARE, MEDICAID, SELFPAY ==
[2023-03-04 10:53] LABS: INR 1.9 (0.9-1.1); Prothrombin Time 18.8 sec (9.3-11.0)
== END 2023-03-04 02:00 | disposition home or self-care (01) ==
LOC: LBO 02:00
PROVIDERS: PCP Family Medicine; Visit Provider Family Medicine
DX: I48.91 Unspecified atrial fibrillation (principal); Z79.01 Long term (current) use of anticoagulants
CPT/HCPCS: 36415; 85610

== ENCOUNTER 2023-03-18 02:16 | Outpatient (CLI) | payer MEDICARE, MEDICAID, SELFPAY ==
[2023-03-18 11:37] LABS: INR 3.3 (0.9-1.1)
[2023-03-18 11:57] LABS: Hemoglobin A1C 7.8 % (<5.7)
[2023-03-18 12:08] LABS: Anion Gap 6.8 mmol/L (3-11); BUN 22 mg/dL (7-18); CO2 29.2 mmol/L (21.0-32.0); CREATININE 1.1 mg/dL (0.55-1.02); Calcium 9.5 mg/dL (8.5-10.1); Chloride 101 mmol/L (98-107); Estimated GFR 49.86 (mL/min/1.73m2); Glucose 187 mg/dL (74-106); Potassium 3.8 mmol/L (3.5-5.1); Sodium 137 mmol/L (136-145); TSH (W/Ref FT4) 5.47 uIU/mL (0.36-3.74)
[2023-03-18 12:28] LABS: FREE T4 1.15 ng/dL (0.76-1.46)
== END 2023-03-18 02:17 | disposition home or self-care (01) ==
LOC: LBO 02:16
PROVIDERS: PCP Family Medicine; Visit Provider Family Medicine
DX: E03.9 Hypothyroidism, unspecified (principal); I10 Essential (primary) hypertension; E11.9 Type 2 diabetes mellitus without complications; N18.31 Chronic kidney disease, stage 3a; I48.91 Unspecified atrial fibrillation; Z79.01 Long term (current) use of anticoagulants
CPT/HCPCS: 36415; 80048; 83036; 84439; 84443; 85610

== ENCOUNTER 2023-04-15 01:26 | Outpatient (CLI) | payer MEDICARE, MEDICAID, SELFPAY ==
[2023-04-15 11:31] LABS: INR 3.8 (0.9-1.1); Prothrombin Time 34.2 sec (9.1-11.1)
== END 2023-04-15 01:27 | disposition home or self-care (01) ==
LOC: LBO 01:26
PROVIDERS: PCP Family Medicine; Visit Provider Family Medicine
DX: I48.91 Unspecified atrial fibrillation (principal); Z79.01 Long term (current) use of anticoagulants
CPT/HCPCS: 36415; 85610

== ENCOUNTER 2023-04-22 03:00 | Outpatient (CLI) | payer MEDICARE, MEDICAID, SELFPAY ==
[2023-04-22 12:13] LABS: Prothrombin Time 38.1 sec (9.1-11.1)
[2023-04-22 12:24] LABS: INR 4.3 (0.9-1.1)
== END 2023-04-22 03:01 | disposition home or self-care (01) ==
LOC: LBO 03:00
PROVIDERS: PCP Family Medicine; Visit Provider Family Medicine
DX: I48.91 Unspecified atrial fibrillation (principal); Z79.01 Long term (current) use of anticoagulants
CPT/HCPCS: 36415; 85610

== ENCOUNTER 2023-04-29 03:26 | Outpatient (CLI) | payer MEDICARE, MEDICAID, SELFPAY ==
[2023-04-29 14:00] LABS: INR 3.5 (0.9-1.1); Prothrombin Time 31.7 sec (9.1-11.1)
== END 2023-04-29 03:27 | disposition home or self-care (01) ==
LOC: LBO 03:26
PROVIDERS: PCP Family Medicine; Visit Provider Family Medicine
DX: Z79.01 Long term (current) use of anticoagulants (principal)
CPT/HCPCS: 36415; 85610

== ENCOUNTER 2023-05-06 02:30 | Outpatient (CLI) | payer MEDICARE, MEDICAID, SELFPAY ==
[2023-05-06 11:34] LABS: INR 3.6 (0.9-1.1); Prothrombin Time 32.1 sec (9.1-11.1)
== END 2023-05-06 02:31 | disposition home or self-care (01) ==
LOC: LBO 02:30
PROVIDERS: PCP Family Medicine; Visit Provider Family Medicine
DX: Z79.01 Long term (current) use of anticoagulants (principal); I48.91 Unspecified atrial fibrillation
CPT/HCPCS: 36415; 85610

== ENCOUNTER 2023-05-13 04:54 | Outpatient (CLI) | payer MEDICARE, MEDICAID, SELFPAY ==
[2023-05-13 11:59] LABS: INR 2.2 (0.9-1.1); Prothrombin Time 20.8 sec (9.1-11.1)
== END 2023-05-13 04:55 | disposition home or self-care (01) ==
LOC: LBO 04:54
PROVIDERS: PCP Family Medicine; Visit Provider Family Medicine
DX: I48.91 Unspecified atrial fibrillation (principal); Z79.01 Long term (current) use of anticoagulants
CPT/HCPCS: 36415; 85610

== ENCOUNTER 2023-05-27 04:16 | Outpatient (CLI) | payer MEDICARE, MEDICAID, SELFPAY ==
[2023-05-27 11:47] LABS: Prothrombin Time 35.9 sec (9.1-11.1)
== END 2023-05-27 04:17 | disposition home or self-care (01) ==
LOC: LBO 04:16
PROVIDERS: PCP Family Medicine; Visit Provider Family Medicine
DX: Z79.01 Long term (current) use of anticoagulants (principal)
CPT/HCPCS: 36415; 85610

== ENCOUNTER 2023-06-10 02:51 | Outpatient (CLI) | payer OTHER, MEDICAID, SELFPAY ==
[2023-06-10 11:11] LABS: INR 2.1 (0.9-1.1); Prothrombin Time 20.1 sec (9.1-11.1)
== END 2023-06-10 02:52 | disposition home or self-care (01) ==
LOC: LBO 02:51
PROVIDERS: PCP Family Medicine; Visit Provider Family Medicine
DX: Z79.01 Long term (current) use of anticoagulants (principal)
CPT/HCPCS: 36415; 85610

== ENCOUNTER 2023-06-24 11:11 | Outpatient (CLI) | payer OTHER, MEDICAID, SELFPAY ==
[2023-06-24 11:16] LABS: INR 1.8 (0.9-1.1); Prothrombin Time 16.9 sec (9.1-11.1)
== END 2023-06-24 11:12 | disposition home or self-care (01) ==
LOC: LBO 11:11
PROVIDERS: PCP Family Medicine; Visit Provider Family Medicine
DX: Z79.01 Long term (current) use of anticoagulants (principal); I48.91 Unspecified atrial fibrillation
CPT/HCPCS: 36415; 85610

== ENCOUNTER 2023-07-01 02:36 | Outpatient (CLI) | payer OTHER, MEDICAID, SELFPAY ==
[2023-07-01 11:51] LABS: INR 1.9 (0.9-1.1); Prothrombin Time 17.7 sec (9.1-11.1)
== END 2023-07-01 02:37 | disposition home or self-care (01) ==
LOC: LBO 02:36
PROVIDERS: PCP Family Medicine; Visit Provider Family Medicine
DX: I48.91 Unspecified atrial fibrillation (principal); Z79.01 Long term (current) use of anticoagulants
CPT/HCPCS: 36415; 85610

== ENCOUNTER 2023-07-08 04:45 | Outpatient (CLI) | payer OTHER, MEDICAID, SELFPAY ==
[2023-07-08 11:14] LABS: INR 2.2 (0.9-1.1); Prothrombin Time 20.8 sec (9.1-11.1)
== END 2023-07-08 04:46 | disposition home or self-care (01) ==
PROVIDERS: PCP Family Medicine; Visit Provider Family Medicine
DX: I48.91 Unspecified atrial fibrillation (principal); Z79.01 Long term (current) use of anticoagulants
CPT/HCPCS: 36415; 85610

== ENCOUNTER 2023-07-15 03:41 | Outpatient (CLI) | payer OTHER, MEDICAID, SELFPAY ==
[2023-07-15 11:19] LABS: Prothrombin Time 21.1 sec (9.1-11.1)
[2023-07-15 11:22] LABS: INR 2.2 (0.9-1.1)
== END 2023-07-15 03:42 | disposition home or self-care (01) ==
LOC: LBO 03:41
PROVIDERS: PCP Family Medicine; Visit Provider Family Medicine
DX: I48.91 Unspecified atrial fibrillation (principal); Z79.01 Long term (current) use of anticoagulants
CPT/HCPCS: 36415; 85610

== ENCOUNTER 2023-07-22 11:30 | Outpatient (CLI) | payer OTHER, MEDICAID, SELFPAY ==
[2023-07-22 11:19] LABS: INR 2.6 (0.9-1.1)
== END 2023-07-22 11:31 | disposition home or self-care (01) ==
LOC: LBO 11:30
PROVIDERS: PCP Family Medicine; Visit Provider Family Medicine
DX: Z79.01 Long term (current) use of anticoagulants (principal)
CPT/HCPCS: 36415; 85610

== ENCOUNTER 2023-08-05 03:20 | Outpatient (CLI) | payer OTHER, MEDICAID, SELFPAY ==
[2023-08-05 11:15] LABS: INR 2.3 (0.9-1.1); Prothrombin Time 21.5 sec (9.1-11.1)
== END 2023-08-05 03:21 | disposition home or self-care (01) ==
LOC: LBO 03:20
PROVIDERS: PCP Family Medicine; Visit Provider Family Medicine
DX: I48.91 Unspecified atrial fibrillation (principal); Z79.01 Long term (current) use of anticoagulants
CPT/HCPCS: 36415; 85610

== ENCOUNTER 2023-08-12 12:57 | Outpatient (CLI) | payer OTHER, MEDICAID, SELFPAY ==
[2023-08-12 11:50] LABS: INR 3.4 (0.9-1.1); Prothrombin Time 30.8 sec (9.1-11.1)
== END 2023-08-12 12:58 | disposition home or self-care (01) ==
LOC: LBO 12:58
PROVIDERS: PCP Family Medicine; Visit Provider Family Medicine
DX: I48.91 Unspecified atrial fibrillation (principal); Z79.01 Long term (current) use of anticoagulants
CPT/HCPCS: 36415; 85610

== ENCOUNTER 2023-08-26 12:07 | Outpatient (CLI) | payer OTHER, MEDICAID, SELFPAY ==
[2023-08-26 11:06] LABS: INR 3.1 (0.9-1.1); Prothrombin Time 28.1 sec (9.1-11.1)
== END 2023-08-26 12:08 | disposition home or self-care (01) ==
LOC: LBO 12:07
PROVIDERS: PCP Family Medicine; Visit Provider Family Medicine
DX: I48.91 Unspecified atrial fibrillation (principal); Z79.01 Long term (current) use of anticoagulants
CPT/HCPCS: 36415; 85610

== ENCOUNTER 2023-09-17 17:17 | Outpatient (REF) | payer OTHER, MEDICAID, SELFPAY ==
[2023-09-17 19:19] LABS: COMMENT (LAB VIEW ONLY) < 13.00 mg/dL
== END 2023-09-17 17:18 | disposition home or self-care (01) ==
LOC: NCHCN 17:17
PROVIDERS: PCP Family Medicine; Visit Provider Family Medicine
DX: E11.9 Type 2 diabetes mellitus without complications (principal)
CPT/HCPCS: 82043; 82570

== ENCOUNTER 2023-09-23 05:06 | Outpatient (CLI) | payer OTHER, MEDICAID, SELFPAY ==
[2023-09-23 11:10] LABS: INR 2.7 (0.9-1.1); Prothrombin Time 25.1 sec (9.1-11.1)
== END 2023-09-23 05:07 | disposition home or self-care (01) ==
LOC: LBO 05:06
PROVIDERS: PCP Family Medicine; Visit Provider Family Medicine
DX: I48.91 Unspecified atrial fibrillation (principal)
CPT/HCPCS: 36415; 85610

== ENCOUNTER 2023-10-15 10:46 | Outpatient (CLI) | payer OTHER, MEDICAID, SELFPAY ==
[2023-10-15 11:30] LABS: INR 2.6 (0.9-1.1); Prothrombin Time 23.9 sec (9.1-11.1)
== END 2023-10-15 10:47 | disposition home or self-care (01) ==
LOC: LBO 10:46
PROVIDERS: PCP Family Medicine; Visit Provider Family Medicine
DX: I48.91 Unspecified atrial fibrillation (principal); Z79.01 Long term (current) use of anticoagulants
CPT/HCPCS: 36415; 85610

== ENCOUNTER 2023-11-18 13:42 | Outpatient (CLI) | payer OTHER, MEDICAID, SELFPAY ==
[2023-11-18 11:16] LABS: INR 3.5 (0.9-1.1); Prothrombin Time 31.3 sec (9.1-11.1)
== END 2023-11-18 13:43 | disposition home or self-care (01) ==
LOC: LBO 13:42
PROVIDERS: PCP Family Medicine; Visit Provider Family Medicine
DX: I48.91 Unspecified atrial fibrillation (principal); Z79.01 Long term (current) use of anticoagulants
CPT/HCPCS: 36415; 85610

== ENCOUNTER 2023-12-01 10:18 | Emergency (ER) | payer OTHER, MEDICAID, SELFPAY ==
[2023-12-01] VITALS (32 sets, daily range): BP systolic 76–137; BP diastolic 13–82; PULSE 50–72; RESP 18; TEMP 36.3; O2SAT 97–100
[2023-12-01 11:18] LABS: Abs Immature Grans 0.11 10^3/uL (0.0-0.06); Absolute Eosinophil Count 0.05 10^3/uL (0.0-0.7); Absolute Monocyte Count 0.54 10^3/uL (0.1-0.8); Absolute Neutrophil Count 10.69 10^3/uL (1.2-6.7); Basophils % 0.3 %; Eosinophils % 0.4 %; HCT 37.8 % (36.0-46.0); HGB 12.2 g/dL (11.2-15.7); Immature Grans % 0.9 %; MCH 29.1 pg (27.0-33.0); MCHC 32.3 % (32.0-36.0); MCV 90 fL (80-95); MPV 10.1 fL (8.0-11.0); Monocytes % 4.5 %; Neutrophils % 89.9 %; Platelet Count 246 10^3/uL (130-400); RBC 4.19 10^6/uL (3.93-5.22); RDW 14.5 % (11.7-14.6); RDW-SD 48.1 fL; WBC 11.89 10^3/uL (4.4-10.8)
[2023-12-01 11:19] LABS: Absolute Basophil Count 0.04 10^3/uL (0.0-0.2); Absolute Lymphocyte Count 0.48 10^3/uL (1.2-3.4)
[2023-12-01 11:33] LABS: INR 2.8 (0.9-1.1); PTT Activated 31.6 sec (23.6-32.8); Prothrombin Time 25.4 sec (9.1-11.1)
[2023-12-01 11:38] LABS: ALT 21 U/L (14-59); AST 17 U/L (15-37); Albumin 3.9 g/dL (3.4-5.0); Alkaline Phosphatase 115 U/L (46-116); Anion Gap 9.5 mmol/L (3-11); BUN 36 mg/dL (7-18); Bilirubin, Total 1.15 mg/dL (0.2-1.0); CO2 28.5 mmol/L (21.0-32.0); CREATININE 1.4 mg/dL (0.55-1.02); Calcium 9.2 mg/dL (8.5-10.1); Chloride 99 mmol/L (98-107); Glucose 253 mg/dL (74-106); Potassium 4.2 mmol/L (3.5-5.1); Sodium 137 mmol/L (136-145); Total Protein 7.3 g/dL (6.4-8.2)
--- NOTE | 2023-12-01 11:57 | DI.RAD_ITS ---
Exam(s) XR TIB/FIB LT EXAM: XR TIB/FIB LT CLINICAL HISTORY: trauma. TECHNIQUE: 2D digital imaging was performed. COMPARISON: No exams were available for comparison FINDINGS: 3 views There is soft tissue swelling-edema anteriorly and laterally. There is no evidence of acute fracture in the tibia and fibula. No radiopaque foreign bodies. No gas in the soft tissues. Vascular calci fication is noted in the popliteal artery and runoff arteries of the calf indicating atherosclerotic involvement. IMPRESSION: Soft tissue findings as above. No fractures evident. DATA REPOSITORY: RADIATION DOSE DELIVERED:
--- NOTE | 2023-12-01 11:58 | DI.RAD_ITS ---
Exam(s) XR KNEE LT 3V AP,LAT,RAMYA EXAM: XR KNEE LT 3V AP,LAT,RAMYA CLINICAL HISTORY: trauma. TECHNIQUE: 2D digital imaging was performed. COMPARISON: No exams were available for comparison FINDINGS: 3 views There is abundant soft tissue swelling which is most prominent anterior to and below the level of the patella. No radiopaque foreign bodies. No evidence of acute fracture nor knee joint effusion. Bone density normal. No osseous lesions. Vascular calcification noted indicating atherosclerotic involvement. IMPRESSION: No acute osseous findings. Prominent subcutaneous soft tissue swelling, most prominent anteriorly. DATA REPOSITORY: RADIATION DOSE DELIVERED:
--- NOTE | 2023-12-01 13:43 | ED.GENADUL_ITS ---
Discharge Plan Disposition Patient Disposition: Home Discharge Details Clinical Impression: Contusion of left lower leg Primary Care Provider: Mell Cueto ED Provider: Dariel Solares Home Meds and New Rx's Prescriptions: No Action losartan 100 mg tablet 50 mg PO QAM Patient Comments: TK 1 T PO D Jardiance 10 mg tablet 10 mg PO DAILY atenolol 50 mg tablet 50 mg PO QAM temazepam 15 mg capsule 15 mg PO QHS PRN albuterol sulfate [ProAir HFA] 90 mcg/actuation Hfa Aerosol Inhaler 2 puff inhalation QID fluticasone propion-salmeterol [Advair Diskus] 500-50 mcg/dose blister with device 1 inh INHALATION BID Patient Comments: INL 1 PUFF PO BID furosemide 80 mg tablet 80 mg PO QAM Patient Comments: TK 1 T PO QD cetirizine 10 mg tablet 10 mg PO QAM Patient Comments: TK 1 T PO D PRN cholecalciferol (vitamin D3) [Vitamin D3] 25 mcg (1,000 unit) tablet 1,000 unit PO QAM Patient Comments: TAKE 1 TABLET BY MOUTH ONCE DAILY atorvastatin [Lipitor] 10 mg Tablet 10 mg PO QPM potassium chloride 10 mEq tablet,ER particles/crystals 10 meq PO QAM Patient Comments: TK 1 T PO QD zolpidem 5 mg tablet 5 mg PO HS warfarin 5 mg tablet 2.5 - 5 mg PO DIRECTED PRN Patient Comments: TK 1 T PO D UTD Rx Instructions: 2.5 M/Th - 5 all other days (DME) pen needle, diabetic [BD Ultra-Fine Mini Pen Needle] 31 gauge x 3/16 needle MISCELLANEOUS Patient Comments: INJECT INSULIN SUBCUTANEOUSLY DIRECTED. ONCE A DAY fluticasone propionate [Flonase Allergy Relief] 50 mcg/actuation [place],Suspension 2 spray INTRANASAL DAILY PRN mupirocin 2 % ointment 1 applic TOPICAL BID PRN Patient Comments: APPLY TO AFFECTED AREA TWICE DAILY FOR 1 WEEK OR UNTIL RESOLVED alendronate 70 mg tablet 70 mg PO DIRECTED Patient Comments: TK 1 T PO WEEKLY ON AN EMPTY STOMACH WITH BIG GLASS OF WATER DONT LIE DOWN FOR AN HOUR Rx Instructions: weekly Discharge Instructions Instructions: Taking care of bruises, Minor Contusion ED Additional Instructions: At this time it looks like you have significant bruising to the soft tissue of your left lower extremity. If you have any new or significant worsening of symptoms feel free to return to the emergency department for reassessment Otherwise follow-up with your primary care provider for recheck of symptoms and recheck of your INR. Referrals: Mell Cueto MD [Primary Care Provider] - 3 days HPI General Mode of arrival: wheelchair . Date/Time Provider Initiated Documentation: 12/01/23 10:31 . Limitations to Documentation: no limitations . Information obtained by: patient and RN notes reviewed . History of Present Illness 83 year old F presents to the emergency department with the chief complaint of Left leg injury, described as moderate, Patient started experiencing this day(s) (1) and it has been constant. No relieving factors improve symptom(s), Movement worsens symptoms . Patient notes no other symptoms.. Patient did receive the following treatments prior to arrival, none Related Data Home Medications Medication Instructions Recorded Confirmed albuterol sulfate 90 mcg/actuation 2 puff inhalation QID 09/27/19 12/01/23 aerosol inhaler (ProAir HFA) alendronate 70 mg tablet 70 mg PO DIRECTED 09/27/19 12/01/23 atorvastatin 10 mg tablet (Lipitor) 10 mg PO QPM 09/27/19 12/01/23 cetirizine 10 mg tablet 10 mg PO QAM 09/27/19 12/01/23 cholecalciferol (vitamin D3) 25 1,000 unit PO QAM 09/27/19 12/01/23 mcg (1,000 unit) tablet (Vitamin D3) fluticasone 500 mcg-salmeterol 50 1 inh inhalation BID 09/27/19 12/01/23 mcg/dose blistr powdr for inhalation (Advair Diskus) fluticasone propionate 50 2 spray intranasal DAILY PRN 09/27/19 12/01/23 mcg/actuation nasal spray,suspension (Flonase Allergy Relief) furosemide 80 mg tablet 80 mg PO QAM 09/27/19 12/01/23 mupirocin 2 % topical ointment 1 applic topical BID PRN 09/27/19 12/01/23 pen needle, diabetic 31 gauge x 09/27/19 12/01/23 3/16 (BD Ultra-Fine Mini Pen Needle) potassium chloride 10 mEq 10 meq PO QAM 09/27/19 12/01/23 tablet,extended release(part/cryst) warfarin 5 mg tablet 2.5 - 5 mg PO DIRECTED PRN 09/27/19 12/01/23 zolpidem 5 mg tablet 5 mg PO HS 09/27/19 12/01/23 atenolol 50 mg tablet 50 mg PO QAM 11/13/21 12/01/23 temazepam 15 mg capsule 15 mg PO QHS PRN 11/13/21 12/01/23 losartan 100 mg tablet 50 mg PO QAM 11/29/21 12/01/23 empagliflozin 10 mg tablet 10 mg PO DAILY 02/05/23 12/01/23 (Jardiance) Allergies Allergy/AdvReac Type Severity Reaction Status Date / Time peanut Allergy Severe Anaphylaxis Verified 12/01/23 10:34 lactose Allergy Unknown Diarrhea Verified 12/01/23 10:34 Penicillins Allergy Unknown Pt thinks Verified 12/01/23 10:34 she gets a rash aminophylline Allergy unknown Verified 12/01/23 10:34 amiodarone Allergy unknown Verified 12/01/23 10:34 digoxin Allergy unknown Verified 12/01/23 10:34 enalaprilat [From Vasotec] Allergy unknown Verified 12/01/23 10:34 tree and shrub pollen Allergy Itching Verified 12/01/23 10:34 paper tape Allergy Intermediate Skin Rash, Uncoded 12/01/23 10:34 red and sore General Stated Complaint: Fall/Non TraumaCriteria SANDRA: 3 Review of Systems Constitutional Constitutional: Denies fever(s) Cardiovascular Cardiovascular: Denies syncope Musculoskeletal Musculoskeletal: Reports as per HPI Integumentary/Breasts Skin/Breast: Reports unusual bruising Neurologic Neurologic: Denies syncope Exam Const General: cooperative, no acute distress and not ill appearing Orientation: alert, awake and oriented x3 HENWA Mouth: moist mucous membranes Resp Effort & Inspection: normal respiratory effort, able to speak in complete sentences and no respiratory distress Cardio Rate: regular rate Rhythm: regular rhythm Pulses: normal peripheral pulses Skin General skin exam: no rashes or lesions noted Neuro General: patient alert, patient awake, patient oriented x3, moves all extremities and no focal motor deficits Sensory Exam: no sensory deficits noted Extrem Left lower extremity: knee Details: tenderness, abnormal ROM Details: pain with active ROM and pain with passive ROM and ecchymosis and lower leg Details: tenderness (Anterior proximal half), non-pitting edema and ecchymosis Course Vital Signs Vital signs: Vital Signs Temperature 36.3 C L 12/01/23 10:22 Pulse 58 L 12/01/23 10:22 Respiratory Rate 18 12/01/23 10:22 Blood Pressure 95/54 L 12/01/23 10:22 Pulse Oximetry 98 12/01/23 10:22 Temperature 36.3 C L 12/01/23 10:22 Temperature Source Temporal Artery Scan 12/01/23 10:22 Pulse 72 12/01/23 13:16 Respiratory Rate 18 12/01/23 10:22 Respiratory Effort Normal, Non-Labored 12/01/23 10:31 Blood Pressure 116/56 L 12/01/23 13:16 Blood Pressure Mean 66 12/01/23 13:16 Blood Pressure Position Sitting 12/01/23 10:22 Pulse Oximetry 98 12/01/23 13:20 Pain Level 5 12/01/23 10:31 Lab/Test Results Lab/Test Results: Laboratory Tests Range/Units 12/01/23 11:10 WBC (4.4-10.8) 10^3/uL 11.89 H RBC (3.93-5.22) 10^6/uL 4.19 Hgb (11.2-15.7) g/dL 12.2 Hct (36.0-46.0) % 37.8 MCV (80-95) fL 90 MCH (27.0-33.0) pg 29.1 MCHC (32.0-36.0) % 32.3 RDW (11.7-14.6) % 14.5 Plt Count (130-400) 10^3/uL 246 MPV (8.0-11.0) fL 10.1 Immature Gran % % 0.9 Neutrophils % % 89.9 Lymphocytes % % 4.0 Monocytes % % 4.5 Eosinophils % % 0.4 Basophils % % 0.3 Nucleated RBC % (0.0-0.3) % 0.0 Absolute Neutrophils (1.2-6.7) 10^3/uL 10.69 H Absolute Lymphocytes (1.2-3.4) 10^3/uL 0.48 L Absolute Monocytes (0.1-0.8) 10^3/uL 0.54 Absolute Eosinophils (0.0-0.7) 10^3/uL 0.05 Absolute Basophils (0.0-0.2) 10^3/uL 0.04 PT (9.1-11.1) sec 25.4 H INR (0.9-1.1) 2.8 H APTT (23.6-32.8) sec 31.6 Sodium (136-145) mmol/L 137 Potassium (3.5-5.1) mmol/L 4.2 Chloride (98-107) mmol/L 99 Carbon Dioxide (21.0-32.0) mmol/L 28.5 Anion Gap (3-11) mmol/L 9.5 BUN (7-18) mg/dL 36 H Creatinine (0.55-1.02) mg/dL 1.4 H Est GFR (CKD-EPI 2020) (mL/min/1.73m2) 37.10 Glucose (74-106) mg/dL 253 H Calcium (8.5-10.1) mg/dL 9.2 Total Bilirubin (0.2-1.0) mg/dL 1.15 H AST (15-37) U/L 17 ALT (14-59) U/L 21 Alkaline Phosphatase (46-116) U/L 115 Total Protein (6.4-8.2) g/dL 7.3 Albumin (3.4-5.0) g/dL 3.9 Medical Decision Making Patient reports yesterday evening she had a mechanical fall after tripping over her chair at home. Patient landed on anterior aspect of knee denies all other injury or trauma. Today she states significant swelling and pain. She does report significant bruising secondary to being on blood thinners which she takes for her A-fib. Patient denies all other symptoms associated with blood thinners such as other abnormal bruising or bleeding, abdominal pain, rectal bleeding, urinary symptoms. Physical exam shows significant ecchymosis and swelling to the left lower extremity from the knee down to midshaft tib-fib. Sensation and movement is intact distal to injury and patient can bear some weight. Will perform radiological imaging for evaluation of fracture and will check blood work due to patient being anticoagulated.. Doppler ultrasound was utilized and pulses are intact. Given this I suspect soft tissue ecchymosis secondary to blunt trauma but will rule out fracture. At this time symptoms do not seem clinically consistent with compartment syndrome as calf is soft but tender. Reviewed labs that showed no significant blood loss, slight leukocytosis which could be secondary to trauma, INR is 2.8 which is therapeutic given patient's condition, patient does have decreased renal function but otherwise nonemergent lab findings. Patient was encouraged to continue to hydrate at home but I do not feel that IV fluids are necessary and patient denies that she was lying on the floor and states that she did get up and get onto the couch so I doubt rhabdo. Reviewed radiological imaging along with radiologist interpretation that shows soft tissue findings but no acute fracture. Did discuss significant ecchymosis with orthopedist who recommended against Axel wrap or draining of the knee as most of the findings are soft tissue and not in the joint. Patient to be weightbearing as tolerated and to follow-up with primary care provider for reassessment. After discussion of diagnosis and plan of care patient has no further needs, questions, or concerns and states clear understanding to return to the emergency department for any worsening symptoms. This documentation was generated using [email or web address] dictation system, please disregard any oddities of phrase or misspellings. Quality:SDOH Health Related Social Needs: 2 No Data to Display PFSH All Active Problems Contusion of left lower leg (Acute) Lesion of skin of nose (Acute) Conductive hearing loss in right ear (Acute 02/23/15) Mixed conductive and sensorineural hearing loss of right ear with restricted hearing of left ear (Acute 07/25/16) Sensorineural hearing loss (SNHL) of left ear with restricted hearing of right ear (Acute 07/25/16) Sensorineural hearing loss, bilateral (Acute 02/25/17) Medical History Bunion Memory deficit Subclinical hypothyroidism Elevated TSH Type 2 diabetes mellitus Hypocalcemia CKD (chronic kidney disease) Tricuspid valve regurgitation Facial skin lesion Hyperlipidemia Asthma CAD (coronary artery disease) A-fib HTN (hypertension) Diabetes mellitus Lactose intolerance Osteoporosis Diverticulitis Allergic rhinitis Hiatal hernia Mitral valve stenosis Insomnia Leg cramps Surgical History Mitral valve replaced History of bladder suspension procedure History of tonsillectomy H/O adenoidectomy Family History Father , d. 60 Throat cancer Mother , d. 80 Heart disease Social History Smoking/Tobacco Use Status: Never Smoking risk assessment performed?: Yes Alcohol Intake: never Drug use: Never Substance use type: does not use Household members: none Number of Children: 4 Do you feel safe at home: Yes Do you feel safe in your relationship?: Yes Additional Social history: son lives nearby
--- NOTE | 2023-12-01 15:45 | NUR.NOTE ---
Referral to PCP for significant left leg contusion. Have PT follow up in 3 days. Referred by Dariel Solares.Nursing Note:
== END 2023-12-01 13:55 | disposition home or self-care (01) ==
PROVIDERS: Emergency Provider Nurse Practitioner Family; PCP Family Medicine
DX: S80.12XA Contusion of left lower leg, initial encounter (principal); Z79.01 Long term (current) use of anticoagulants; W01.10XA Fall on same level from slipping, tripping and stumbling with subsequent striking against unspecified object, initial encounter
CPT/HCPCS: 36415; 73562; 80053; 99283; 73590; 85025; 85610; 85730

== ENCOUNTER 2023-12-09 03:25 | Emergency (ER) | payer OTHER, MEDICAID, SELFPAY ==
[2023-12-09 03:30] VITALS: BP 148/76; PULSE 79; RESP 16; TEMP 36.8; O2SAT 97
--- NOTE | 2023-12-09 03:34 | W.ED.GENAD ---
Discharge Plan Disposition Patient Disposition: Home Condition: Good Discharge Details Clinical Impression: Traumatic ecchymosis of multiple sites of left lower extremity Primary Care Provider: Mell Cueto ED Provider: Portillo Villaseñor [place] Meds and New Rx's Prescriptions: No Action losartan 100 mg tablet 50 mg PO QAM Patient Comments: TK 1 T PO D Jardiance 10 mg tablet 10 mg PO DAILY atenolol 50 mg tablet 50 mg PO QAM temazepam 15 mg capsule 15 mg PO QHS PRN albuterol sulfate [ProAir HFA] 90 mcg/actuation Hfa Aerosol Inhaler 2 puff inhalation QID fluticasone propion-salmeterol [Advair Diskus] 500-50 mcg/dose blister with device 1 inh INHALATION BID Patient Comments: INL 1 PUFF PO BID furosemide 80 mg tablet 80 mg PO QAM Patient Comments: TK 1 T PO QD cetirizine 10 mg tablet 10 mg PO QAM Patient Comments: TK 1 T PO D PRN cholecalciferol (vitamin D3) [Vitamin D3] 25 mcg (1,000 unit) tablet 1,000 unit PO QAM Patient Comments: TAKE 1 TABLET BY MOUTH ONCE DAILY atorvastatin [Lipitor] 10 mg Tablet 10 mg PO QPM potassium chloride 10 mEq tablet,ER particles/crystals 10 meq PO QAM Patient Comments: TK 1 T PO QD zolpidem 5 mg tablet 5 mg PO HS warfarin 5 mg tablet 2.5 - 5 mg PO DIRECTED PRN Patient Comments: TK 1 T PO D UTD Rx Instructions: 2.5 M/Th - 5 all other days (DME) pen needle, diabetic [BD Ultra-Fine Mini Pen Needle] 31 gauge x 3/16 needle MISCELLANEOUS Patient Comments: INJECT INSULIN SUBCUTANEOUSLY DIRECTED. ONCE A DAY fluticasone propionate [Flonase Allergy Relief] 50 mcg/actuation [place],Suspension 2 spray INTRANASAL DAILY PRN alendronate 70 mg tablet 70 mg PO DIRECTED Patient Comments: TK 1 T PO WEEKLY ON AN EMPTY STOMACH WITH BIG GLASS OF WATER DONT LIE DOWN FOR AN HOUR Rx Instructions: weekly cephalexin 500 mg capsule 500 mg PO TID Patient Comments: TAKE ONE CAPSULE BY MOUTH THREE TIMES A DAY FOR 7 DAYS Discharge Instructions Additional Instructions: You were seen in the ED with concern for infection. The color change you are noting associated with the significant bruising is part of the healing process. There is no current evidence of infection. A skin infection, called cellulitis, typically results in bright red skin change with associated warmth and tenderness. Continue your current management of your bruising as it looks like it is doing well. Finish your antibiotics as previously prescribed. Follow-up with primary care next week for recheck. Return to ED for fever, worsening pain, worsening swelling, other concerns. Referrals: Mell Cueto MD [Primary Care Provider] - Discharge Data Discharge Date/Time-TO BE ENTERED AT DEPARTURE: 12/09/23 03:53 HPI General Mode of arrival: ambulatory. Date/Time Provider Initiated Documentation: 12/09/23 03:34. Limitations to Documentation: no limitations. Information obtained by: patient. HPI Narrative: Patient presents to ED with concern for infection. Patient suffered a fall last week and was seen here. X-rays were negative but she had significant bruising/ecchymosis. Subsequently followed up with primary care. Currently on cephalexin. Reports that primary care told her to come to the ED if she develops any redness to the leg. She is noticing some redness in one area of the bruising. She no longer has any pain. She has had no fevers. The swelling has gone down. Related Data Home Medications Medication Instructions Recorded Confirmed albuterol sulfate 90 mcg/actuation 2 puff inhalation QID 09/27/19 12/09/23 aerosol inhaler (ProAir HFA) alendronate 70 mg tablet 70 mg PO DIRECTED 09/27/19 12/09/23 atorvastatin 10 mg tablet (Lipitor) 10 mg PO QPM 09/27/19 12/09/23 cetirizine 10 mg tablet 10 mg PO QAM 09/27/19 12/09/23 cholecalciferol (vitamin D3) 25 1,000 unit PO QAM 09/27/19 12/09/23 mcg (1,000 unit) tablet (Vitamin D3) fluticasone 500 mcg-salmeterol 50 1 inh inhalation BID 09/27/19 12/09/23 mcg/dose blistr powdr for inhalation (Advair Diskus) fluticasone propionate 50 2 spray intranasal DAILY PRN 09/27/19 12/09/23 mcg/actuation nasal spray,suspension (Flonase Allergy Relief) furosemide 80 mg tablet 80 mg PO QAM 09/27/19 12/09/23 pen needle, diabetic 31 gauge x 09/27/19 12/01/23/ (BD Ultra-Fine Mini Pen Needle) potassium chloride 10 mEq 10 meq PO QAM 09/27/19 12/09/23 tablet,extended release(part/cryst) warfarin 5 mg tablet 2.5 - 5 mg PO DIRECTED PRN 09/27/19 12/09/23 zolpidem 5 mg tablet 5 mg PO HS 09/27/19 12/09/23 atenolol 50 mg tablet 50 mg PO QAM 11/13/21 12/09/23 temazepam 15 mg capsule 15 mg PO QHS PRN 11/13/21 12/09/23 losartan 100 mg tablet 50 mg PO QAM 11/29/21 12/09/23 empagliflozin 10 mg tablet 10 mg PO DAILY 02/05/23 12/09/23 (Jardiance) cephalexin 500 mg capsule 500 mg PO TID 12/09/23 12/09/23 Allergies Allergy/AdvReac Type Severity Reaction Status Date / Time peanut Allergy Severe Anaphylaxis Verified 12/09/23 03:34 lactose Allergy Unknown Diarrhea Verified 12/09/23 03:34 Penicillins Allergy Unknown Pt thinks Verified 12/09/23 03:34 she gets a rash aminophylline Allergy unknown Verified 12/09/23 03:34 amiodarone Allergy unknown Verified 12/09/23 03:34 digoxin Allergy unknown Verified 12/09/23 03:34 enalaprilat [From Vasotec] Allergy unknown Verified 12/09/23 03:34 tree and shrub pollen Allergy Itching Verified 12/09/23 03:34 paper tape Allergy Intermediate Skin Rash, Uncoded 12/09/23 03:34 red and sore General Stated Complaint: [employer] SANDRA: 4 Review of Systems Narrative: Per HPI Exam Narrative Exam Narrative: Const: WDWN elderly female in NAD. VS per triage. HEENT: NC/AT. Normal facial exam. Neck: Supple. Trachea midline. Lungs: Normal respiratory effort. Neuro: A+O x 3. Normal speech, mentation. Cranial nerves II - XII grossly intact. No gross motor or sensory deficit. Ext: Left lower extremity with ecchymosis extending from mid thigh down past the knee to the ankle. There is no warmth or tenderness noted. There is no erythema noted. She does have resolving ecchymosis with various degrees of purple, red, yellow discoloration. She actually has fairly normal range of motion of the knee at this point. Skin: There is a fluid-filled intact blister to the lateral aspect of the knee that is approximately 3 cm in diameter. Course Vital Signs Vital signs: Vital Signs Temperature 98.2 F 12/09/23 03:30 Pulse 79 12/09/23 03:30 Respiratory Rate 16 12/09/23 03:30 Blood Pressure 148/76 H 12/09/23 03:30 Pulse Oximetry 97 12/09/23 03:30 Temperature 98.2 F 12/09/23 03:30 Temperature Source Temporal Artery Scan 12/09/23 03:30 Pulse 79 12/09/23 03:30 Respiratory Rate 16 12/09/23 03:30 Blood Pressure 148/76 H 12/09/23 03:30 Blood Pressure Position Sitting 12/09/23 03:30 Pulse Oximetry 97 12/09/23 03:30 Oxygen Delivery Method Room Air 12/09/23 03:30 Oxygen Flow Rate 0 12/09/23 03:30 Pain Level 0 12/09/23 03:30 Medical Decision Making Patient presenting to ED with concern for infection. The redness she is concerned about is not cellulitis. Her ecchymosis has varying degrees of healing and coloration. The redness is associated with resolving ecchymosis. There is no erythema in the sense of cellulitic component. There is no warmth or tenderness. Patient is reassured and is to continue her current care and management. Follow-up with primary care as needed. Return precautions provided. PFSH All Active Problems Traumatic ecchymosis of multiple sites of left lower extremity (Acute) Contusion of left lower leg (Acute) Lesion of skin of nose (Acute) Conductive hearing loss in right ear (Acute 02/23/15) Mixed conductive and sensorineural hearing loss of right ear with restricted hearing of left ear (Acute 07/25/16) Sensorineural hearing loss (SNHL) of left ear with restricted hearing of right ear (Acute 07/25/16) Sensorineural hearing loss, bilateral (Acute 02/25/17) Medical History Bunion Memory deficit Subclinical hypothyroidism Elevated TSH Type 2 diabetes mellitus Hypocalcemia CKD (chronic kidney disease) Tricuspid valve regurgitation Facial skin lesion Hyperlipidemia Asthma CAD (coronary artery disease) A-fib HTN (hypertension) Diabetes mellitus Lactose intolerance Osteoporosis Diverticulitis Allergic rhinitis Hiatal hernia Mitral valve stenosis Insomnia Leg cramps Surgical History Mitral valve replaced History of bladder suspension procedure History of tonsillectomy H/O adenoidectomy Family History Father , d. 60 Throat cancer Mother , d. 80 Heart disease Social History Smoking/Tobacco Use Status: Never Smoking risk assessment performed?: Yes Alcohol Intake: never Drug use: Never Substance use type: does not use Household members: none Number of Children: 4 Do you feel safe at home: Yes Do you feel safe in your relationship?: Yes Additional Social history: son lives nearby
[2023-12-09 03:39] VITALS: RESP 16
[2023-12-09 03:42] VITALS: BP 148/76; PULSE 79; RESP 16; TEMP 36.8; O2SAT 97
== END 2023-12-09 03:53 | disposition home or self-care (01) ==
LOC: ER 04:00
PROVIDERS: Emergency Provider Emergency Medicine; PCP Family Medicine
DX: S80.12XA Contusion of left lower leg, initial encounter (principal); W19.XXXA Unspecified fall, initial encounter
CPT/HCPCS: 99281; 99282

== ENCOUNTER 2023-12-16 03:35 | Outpatient (CLI) | payer OTHER, MEDICAID, SELFPAY ==
[2023-12-16 11:31] LABS: INR 3.1 (0.9-1.1)
== END 2023-12-16 03:36 | disposition home or self-care (01) ==
LOC: LBO 03:35
PROVIDERS: PCP Family Medicine; Visit Provider Family Medicine
DX: I48.91 Unspecified atrial fibrillation (principal)
CPT/HCPCS: 36415; 85610

== ENCOUNTER → 2024-01-02 12:51 | Outpatient (BNVA) | payer OTHER, MEDICAID, SELFPAY | PROVIDERS: PCP Family Medicine; Referring Provider Family Medicine; Visit Provider Physical Therapy Assistant | DX: S80.12XD Contusion of left lower leg, subsequent encounter (principal); W19.XXXD Unspecified fall, subsequent encounter | CPT/HCPCS: 97597 ==

== ENCOUNTER → 2024-01-15 12:38 | Outpatient (BNVA) | payer OTHER, MEDICAID, SELFPAY | PROVIDERS: PCP Family Medicine; Referring Provider Family Medicine; Visit Provider Physical Therapy Assistant | DX: S80.12XD Contusion of left lower leg, subsequent encounter (principal); W19.XXXD Unspecified fall, subsequent encounter | CPT/HCPCS: 97605; 99214 ==

== ENCOUNTER 2024-01-20 01:55 | Outpatient (CLI) | payer OTHER, MEDICAID, SELFPAY ==
[2024-01-20 11:29] LABS: Prothrombin Time 27.5 sec (9.1-11.1)
== END 2024-01-20 01:56 | disposition home or self-care (01) ==
LOC: LBO 01:55
PROVIDERS: PCP Family Medicine; Visit Provider Family Medicine
DX: I48.91 Unspecified atrial fibrillation (principal)
CPT/HCPCS: 36415; 85610

== ENCOUNTER → 2024-01-23 13:02 | Outpatient (BNVA) | payer OTHER, MEDICAID, SELFPAY | PROVIDERS: PCP Family Medicine; Referring Provider Family Medicine; Visit Provider Physical Therapy Assistant | DX: S80.12XD Contusion of left lower leg, subsequent encounter (principal); X58.XXXD Exposure to other specified factors, subsequent encounter | CPT/HCPCS: 97605 ==

== ENCOUNTER → 2024-01-30 13:48 | Outpatient (BNVA) | payer OTHER, MEDICAID, SELFPAY | PROVIDERS: PCP Family Medicine; Referring Provider Family Medicine; Visit Provider Physical Therapy Assistant | DX: S81.802D Unspecified open wound, left lower leg, subsequent encounter (principal); X58.XXXD Exposure to other specified factors, subsequent encounter; E11.59 Type 2 diabetes mellitus with other circulatory complications | CPT/HCPCS: 11042; 93922 ==

== ENCOUNTER → 2024-02-05 13:55 | Outpatient (BNVA) | payer OTHER, MEDICAID, SELFPAY | PROVIDERS: PCP Family Medicine; Referring Provider Family Medicine; Visit Provider Surgery ==

== ENCOUNTER 2024-02-05 15:34 | Outpatient (CLI) | payer OTHER, MEDICAID, SELFPAY ==
[2024-02-05 16:09] LABS: Anion Gap 7.5 mmol/L (3-11); BUN 20 mg/dL (7-18); CO2 30.5 mmol/L (21.0-32.0); CREATININE 1.3 mg/dL (0.55-1.02); Calcium 9.4 mg/dL (8.5-10.1); Chloride 94 mmol/L (98-107); Estimated GFR 40.55 (mL/min/1.73m2); Glucose 142 mg/dL (74-106); Potassium 3.9 mmol/L (3.5-5.1); Sodium 132 mmol/L (136-145)
== END 2024-02-05 15:35 | disposition home or self-care (01) ==
LOC: LBO 15:34
PROVIDERS: PCP Family Medicine; Visit Provider Surgery
DX: I10 Essential (primary) hypertension (principal); I25.10 Atherosclerotic heart disease of native coronary artery without angina pectoris; I48.91 Unspecified atrial fibrillation; E78.5 Hyperlipidemia, unspecified; E11.9 Type 2 diabetes mellitus without complications; S81.809A Unspecified open wound, unspecified lower leg, initial encounter; K44.9 Diaphragmatic hernia without obstruction or gangrene; N18.9 Chronic kidney disease, unspecified; J45.909 Unspecified asthma, uncomplicated
CPT/HCPCS: 11043; 36415; 80048

== ENCOUNTER → 2024-02-12 12:59 | Outpatient (BNVA) | payer OTHER, MEDICAID, SELFPAY | PROVIDERS: PCP Family Medicine; Referring Provider Family Medicine; Visit Provider Surgery | DX: S81.802D Unspecified open wound, left lower leg, subsequent encounter (principal); X58.XXXD Exposure to other specified factors, subsequent encounter | CPT/HCPCS: 11042 ==

== ENCOUNTER 2024-02-17 01:02 | Outpatient (CLI) | payer OTHER, MEDICAID, SELFPAY ==
--- NOTE | 2024-02-17 06:45 | DI.CT_ITS ---
Exam(s) CT ABD AORTA CTA W RUNOFF EXAM: CT ABD AORTA CTA W RUNOFF CLINICAL HISTORY: non healing wound/[id number]. TECHNIQUE: Imaging Protocol: Axial computed tomography images with coronal and sagittal reformatted images were created and reviewed CONTRAST MATERIAL: Intravenous: Omnipaque 350 Contrast volume:100 ml Oral: None COMPARISON: No exams were available for comparison FINDINGS: The abdominal aorta is peripherally calcified but not enlarged. The aortic bifurcation is calcified but without tight stenosis. Common iliac arteries calcified but not aneurysmal and without significa nt stenosis. External iliac arteries exhibit no significant narrowing. Common femoral arteries are patent bilaterally. Both SFA arteries are patent mild multilevel disease most prominent in Adrian's canal and slightly mo re prominent on the left side where there is mild stenosis at this level. The SFA is are continuous with bilateral popliteal arteries which exhibit moderate atherosclerosis (more prominent on the left side) and no evidence of popliteal artery aneurysms. LEFT CALF: There is an anterior-lateral peripherally enhancing fluid collection-abscess extending inf eriorly from just below the tibial plateau level, measuring 13.5 cm craniocaudal length x 6 cm wide x 2.5 cm AP. There is no drain within this collection. The LEFT popliteal artery exhibits moderate disease but without critical stenosis. There is approxim ately 40 percent narrowing of the vessel lumen at the level the popliteal artery. No popliteal arter y aneurysm. The left tibioperoneal trunk is patent. There is no significant stenosis at the origin of the left anterior tibial artery. The dominant runoff vessel in the left calf is the anterior tibi al artery which exhibits only mild disease throughout its length and is continuous into the dorsalis pedis artery of the foot. The left posterior tibial artery exhibits multilevel moderate stenoses and appears occluded in the distal calf above the ankle level. The left peroneal artery is opacified to the distal calf level. The RIGHT popliteal artery exhibits approximately 30 percent stenosis. No aneurysm at this level. T he right tibioperoneal trunk is patent. There is no significant stenosis at the origin of the right anterior tibial artery and flow is demonstrated in this vessel into the foot level dorsalis pedis art bess. The right posterior tibial artery exhibits multilevel right stenoses. The right peroneal arter y is opacified to the distal calf level. ABDOMEN: There is no ascites. LIVER: There are no focal hepatic lesions nor dilatation of intrahepatic ducts. GALLBLADDER/BILIARY: Gallbladder not seen and may be surgically absent. CBD is not dilated. PANCREAS: No evidence of pancreatic mass nor dilatation of the pancreatic duct. SPLEEN: Spleen is not enlarged. There are no intrasplenic lesions. Splenic and portal veins are bailey nt. ADRENALS: There are no significant adrenal masses. KIDNEYS: No cysts evident. No calculi nor hydronephrosis. No solid renal masses. LYMPH NODES: There is no retroperitoneal nor para-aortic adenopathy. No obvious mesenteric masses. ABDOMINAL WALL: No evidence of significant anterior abdominal wall hernia. GI: There is no evidence of bowel obstruction, free air, nor abscess.No ischemic appearing bowel loop s. There is extensive diverticulosis of the sigmoid without evidence of obvious acute diverticulitis . PELVIS: LYMPH NODES: There is no intrapelvic nor inguinal adenopathy. GI: No evidence of appendicitis.Extensive diverticulosis of sigmoid URINARY BLADDER: Bladder wall is trabeculated. There is a left-sided Hutch diverticulum REPRODUCTIVE: Uterus and adnexal regions are age-appropriate. No free fluid. OSSEOUS: No significant osseous lesions. No acute fractures. IMPRESSION: 1. There is a large abscess in the anterior-lateral left calf just anterior to the extensor compartme nt, this abscess measuring 13 cm craniocaudal length by 6 cm wide by 2.[address] a reveals no significant inflow stenosis in the aortoiliac segments above the inguinal ligament s 3. Multilevel mild disease in both SFA arteries which is more prominent the level of Adrian's canal b ilaterally. There is also moderate disease in both popliteal arteries, more so on the left side but without critical stenosis in the popliteal arteries and there is no evidence of popliteal artery aneu rysm. 4. Tibioperoneal trunks are patent bilaterally. There is multilevel advanced disease in the bilatera l runoff vessels in the calf, as described above. 5. There is extensive sigmoid diverticulosis. No obvious acute diverticulitis. RADIATION DOSE DELIVERED: 801.71mGy.cm Total DLP DATA REPOSITORY: All CT scans at this facility are submitted to the National Radiology Data Registry (NRDR) Dose Index Registry (DIR) with the [employer] (A[employer]). RADIATION OPTIMIZATION: All CT scans at this facility use at least one of these dose optimization te chniques: automated exposure control; mA and/or kV adjustment per patient size (includes targeted exa ms where dose is matched to clinical indication); or iterative reconstruction.
[2024-02-17] MEDS: Omnipaque 350 MG/ML 100 ML BTL IJ (11:08)
[2024-02-17] MEDS: Normal Saline - Diluent 50 ML VIAL IJ ×2 (11:09→11:10)
[2024-02-17] MEDS: Omnipaque 350 MG/ML 50 ML BTL IJ (11:10)
== END 2024-02-17 01:22 ==
LOC: DI 01:02
PROVIDERS: PCP Family Medicine; Visit Provider Surgery
DX: L02.416 Cutaneous abscess of left lower limb
CPT/HCPCS: 75635; J3490; Q9967

== ENCOUNTER 2024-02-17 01:41 | Outpatient (RCR) | payer OTHER, MEDICAID, SELFPAY ==
[2024-02-17] MEDS: Normal Saline 1,000 ML 500 ML IV (11:44)
[2024-02-17] MEDS: Normal Saline Flush 10 ML SYR IVP (11:44)
== END 2024-03-01 23:59 | disposition home or self-care (01) ==
LOC: INF 01:41
PROVIDERS: PCP Family Medicine; Visit Provider Surgery
DX: N18.9 Chronic kidney disease, unspecified (principal)

== ENCOUNTER 2024-02-17 03:19 | Outpatient (CLI) | payer OTHER, MEDICAID, SELFPAY ==
[2024-02-17 11:24] LABS: CREATININE 1.2 mg/dL (0.55-1.02); Estimated GFR 44.64 (mL/min/1.73m2)
[2024-02-17 11:25] LABS: Prothrombin Time 36.3 sec (9.1-11.1)
[2024-02-17 11:34] LABS: INR 4.1 (0.9-1.1)
--- NOTE | 2024-02-18 09:25 | W.PM.HP.N ---
Assessment and Plan Assessment and plan (1) Anticoagulated on Coumadin: Status: Acute (2) Sensorineural hearing loss, bilateral: Status: Acute (3) Non-healing wound of lower extremity: Status: Acute (4) HTN (hypertension): (5) CAD (coronary artery disease): (6) A-fib: (7) Type 2 diabetes mellitus: (8) Elevated TSH: (9) CKD (chronic kidney disease): (10) Asthma: (11) Abscess: Status: Acute Assessment and plan: IMPRESSION: 1. There is a large abscess in the anterior-lateral left calf just anterior to the extensor compartment, this abscess measuring 13 cm craniocaudal length by 6 cm wide by 2.[address] a reveals no significant inflow stenosis in the aortoiliac segments above the inguinal ligaments 3. Multilevel mild disease in both SFA arteries which is more prominent the level of Adrian's canal bilaterally. There is also moderate disease in both popliteal arteries, more so on the left side but without critical stenosis in the popliteal arteries and there is no evidence of popliteal artery aneurysm. 4. Tibioperoneal trunks are patent bilaterally. There is multilevel advanced disease in the bilateral runoff vessels in the calf, as described above. PFSH All Active Problems (Updated 02/18/24 @ 15:20 by FIONA Gonzalez) Abscess of left leg (Acute) Abscess (Acute) Anticoagulated on Coumadin (Acute) Non-healing wound of lower extremity (Acute) Lesion of skin of nose (Acute) Conductive hearing loss in right ear (Acute 02/23/15) Mixed conductive and sensorineural hearing loss of right ear with restricted hearing of left ear (Acute 07/25/16) Sensorineural hearing loss (SNHL) of left ear with restricted hearing of right ear (Acute 07/25/16) Sensorineural hearing loss, bilateral (Acute 02/25/17) Medical History Bunion Memory deficit Subclinical hypothyroidism Elevated TSH Type 2 diabetes mellitus Hypocalcemia CKD (chronic kidney disease) Tricuspid valve regurgitation Facial skin lesion Hyperlipidemia Asthma CAD (coronary artery disease) A-fib HTN (hypertension) Diabetes mellitus Lactose intolerance Osteoporosis Diverticulitis Allergic rhinitis Hiatal hernia Mitral valve stenosis Insomnia Leg cramps Surgical History Mitral valve replaced History of bladder suspension procedure History of tonsillectomy H/O adenoidectomy Family History Father , d. 60 Throat cancer Mother , d. 80 Heart disease Social History Smoking/Tobacco Use Status: Never Smoking risk assessment performed?: Yes Alcohol Intake: never Drug use: Never Substance use type: does not use Household members: none Housing: other Number of Children: 4 Do you feel safe at home: Yes Do you feel safe in your relationship?: Yes Additional Social history: son lives nearby Meds Allergies and Home Medications Allergies Allergy/AdvReac Type Severity Reaction Status Date / Time peanut Allergy Severe Anaphylaxis Verified 02/19/24 13:40 lactose Allergy Unknown Diarrhea Verified 02/19/24 13:40 Penicillins Allergy Unknown Pt thinks Verified 02/19/24 13:40 she gets a rash aminophylline Allergy unknown Verified 02/19/24 13:40 amiodarone Allergy unknown Verified 02/19/24 13:40 digoxin Allergy unknown Verified 02/19/24 13:40 enalaprilat (From Vasotec) Allergy unknown Verified 02/19/24 13:40 tree and shrub pollen Allergy Itching Verified 02/19/24 13:40 paper tape Allergy Intermediate Skin Rash, Uncoded 02/19/24 13:40 red and sore Home Medications ?Medication ?Instructions ?Recorded ?Confirmed ?Type albuterol sulfate 90 mcg/actuation 2 puff inhalation QID 09/27/19 02/18/24 History aerosol inhaler (ProAir HFA) alendronate 70 mg tablet 70 mg PO DIRECTED 09/27/19 02/18/24 History atorvastatin 10 mg tablet (Lipitor) 10 mg PO QPM 09/27/19 02/18/24 History cetirizine 10 mg tablet 10 mg PO QAM 09/27/19 02/15/24 History cholecalciferol (vitamin D3) 25 1,000 unit PO QAM 09/27/19 02/18/24 History mcg (1,000 unit) tablet (Vitamin D3) fluticasone 500 mcg-salmeterol 50 1 inh inhalation BID 09/27/19 02/18/24 History mcg/dose blistr powdr for inhalation (Advair Diskus) furosemide 80 mg tablet 80 mg PO QAM 09/27/19 02/18/24 History pen needle, diabetic 31 gauge x 09/27/19 02/18/24 History 3/16 (BD Ultra-Fine Mini Pen Needle) potassium chloride 10 mEq 10 meq PO QAM 09/27/19 02/18/24 History tablet,extended release(part/cryst) warfarin 5 mg tablet 2.5 - 5 mg PO DIRECTED PRN 09/27/19 02/18/24 History zolpidem 5 mg tablet 5 mg PO HS 09/27/19 02/18/24 History atenolol 50 mg tablet 50 mg PO QAM 11/13/21 02/18/24 History temazepam 15 mg capsule 15 mg PO QHS PRN 11/13/21 02/18/24 History empagliflozin 25 mg tablet 25 mg PO DAILY 01/01/24 02/18/24 History (Jardiance) cephalexin 500 mg capsule 500 mg PO QID cellulitis 10 days 02/18/24 Rx #40 caps losartan 50 mg tablet 50 mg PO DAILY 02/18/24 02/18/24 History Results Labs 02/18/24 09:23 02/17/24 10:36 Labs: Laboratory Results - last 24 hr 02/17/24 02/17/24 02/18/24 10:36 11:02 05:35 WBC Cancelled RBC Cancelled Hgb Cancelled Hct Cancelled MCV Cancelled MCH Cancelled MCHC Cancelled RDW Cancelled Plt Count Cancelled MPV Cancelled Immature Gran % Cancelled Neutrophils % Cancelled Band Neutrophils % Cancelled Lymphocytes % Cancelled Atypical Lymphs % Cancelled Monocytes % Cancelled Eosinophils % Cancelled Basophils % Cancelled Metamyelocytes % Cancelled Myelocytes % Cancelled Promyelocytes % Cancelled Other Cells % Cancelled Nucleated RBC % Cancelled Absolute Neutrophils Cancelled Absolute Lymphocytes Cancelled Absolute Monocytes Cancelled Absolute Eosinophils Cancelled Absolute Basophils Cancelled RBC Morphology Cancelled Polychromasia Cancelled Hypochromasia Cancelled Poikilocytosis Cancelled Basophilic Stippling Cancelled Anisocytosis Cancelled Microcytosis Cancelled Macrocytosis Cancelled Spherocytes Cancelled Tear Drop Cells Cancelled Ovalocytes Cancelled Stomatocytes Cancelled Bruner-Hilmar-Irwin Bodies Cancelled Fili Cells/Echinocytes Cancelled Acanthocytes (Spur) Cancelled Schistocytes Cancelled PT 36.3 H Cancelled INR 4.1 H Cancelled Creatinine 1.2 H Est GFR (CKD-EPI 2020) 44.64 C-Reactive Protein Cancelled
== END 2024-02-17 03:20 | disposition home or self-care (01) ==
LOC: LBO 03:19 → MS 02-18 09:30
PROVIDERS: PCP Family Medicine; Visit Provider Surgery
DX: Z79.01 Long term (current) use of anticoagulants (principal); S81.809A Unspecified open wound, unspecified lower leg, initial encounter
CPT/HCPCS: 82565; 85610

== ENCOUNTER 2024-02-18 09:37 | Emergency (ER) | payer OTHER, MEDICAID, SELFPAY ==
[2024-02-18] VITALS (50 sets, daily range): BP systolic 107–165; BP diastolic 26–92; PULSE 47–107; RESP 14–24; TEMP 36.3–36.4; O2SAT 91–98
--- NOTE | 2024-02-18 10:02 | W.ED.GENAD ---
Discharge Plan Disposition Patient Disposition: Home Condition: Stable Discharge Details Clinical Impression: Abscess of left leg Primary Care Provider: Mell Cueto ED Provider: Shelton Mayorga Home Meds and New Rx's Prescriptions: New cephalexin 500 mg capsule 500 mg PO QID 10 Days Qty: 40 0RF Continued atenolol 50 mg tablet 50 mg PO QAM temazepam 15 mg capsule 15 mg PO QHS PRN Jardiance 25 mg tablet 25 mg PO DAILY albuterol sulfate [ProAir HFA] 90 mcg/actuation Hfa Aerosol Inhaler 2 puff inhalation QID fluticasone propion-salmeterol [Advair Diskus] 500-50 mcg/dose blister with device 1 inh INHALATION BID Patient Comments: INL 1 PUFF PO BID furosemide 80 mg tablet 80 mg PO QAM Patient Comments: TK 1 T PO QD cetirizine 10 mg tablet 10 mg PO QAM Patient Comments: TK 1 T PO D PRN cholecalciferol (vitamin D3) [Vitamin D3] 25 mcg (1,000 unit) tablet 1,000 unit PO QAM Patient Comments: TAKE 1 TABLET BY MOUTH ONCE DAILY atorvastatin [Lipitor] 10 mg Tablet 10 mg PO QPM potassium chloride 10 mEq tablet,ER particles/crystals 10 meq PO QAM Patient Comments: TK 1 T PO QD zolpidem 5 mg tablet 5 mg PO HS warfarin 5 mg tablet 2.5 - 5 mg PO DIRECTED PRN Patient Comments: TK 1 T PO D UTD Rx Instructions: 2.5 M/Th - 5 all other days (DME) pen needle, diabetic [BD Ultra-Fine Mini Pen Needle] 31 gauge x 3/16 needle MISCELLANEOUS Patient Comments: INJECT INSULIN SUBCUTANEOUSLY DIRECTED. ONCE A DAY alendronate 70 mg tablet 70 mg PO DIRECTED Patient Comments: TK 1 T PO WEEKLY ON AN EMPTY STOMACH WITH BIG GLASS OF WATER DONT LIE DOWN FOR AN HOUR Rx Instructions: weekly losartan 50 mg tablet 50 mg PO DAILY Patient Comments: TAKE ONE TABLET BY MOUTH EVERY DAY Discharge Instructions Instructions: Skin Abscess, Cephalexin, Abscess Incision and Drainage ED Additional Instructions: You were seen in the emergency department for your known abscess of your left leg, this was seen by Dr. Foster here in the ER, your labs are reassuring for no signs of sepsis so we are going to place you on an oral antibiotic called cephalexin sent to [facility] in [place], Dr. Guidry follow-up with you in office visit tomorrow. Please return to the ER for any signs of neurovascular compromise below the abscess or other severe increase in pain, swelling, fever or red streaking up the leg in the meantime, take Tylenol as needed for pain. Referrals: [facility] [Provider Group] Mell Cueto MD [Primary Care Provider] - Discharge Data Discharge Date/Time-TO BE ENTERED AT DEPARTURE: 02/18/24 15:31 HPI General Date/Time Provider Initiated Documentation: 02/18/24 09:39. HPI Narrative: 83 year-old female presents to ED today by POV/ambulating, sent by Dr. Foster of [facility] Surgery for procedural drainage of known large abscess on her L leg- was going to be a direct admit for this- but due to capacity the patient will be seen in ED. Quality described as chronic non-healing wound to L leg from a fall back in November, no radiation to fever, erd streaking outward from the area, fever, weakness, nausea, inability to ambulate. Severity is described as moderate. Palliating factors include nothing specific. Provoking factors include nothing specific. Patient is anticoagulated. Related Data Home Medications ?Medication ?Instructions ?Recorded ?Confirmed albuterol sulfate 90 mcg/actuation 2 puff inhalation QID 09/27/19 02/18/24 aerosol inhaler (ProAir HFA) alendronate 70 mg tablet 70 mg PO DIRECTED 09/27/19 02/18/24 atorvastatin 10 mg tablet (Lipitor) 10 mg PO QPM 09/27/19 02/18/24 cetirizine 10 mg tablet 10 mg PO QAM 09/27/19 02/15/24 cholecalciferol (vitamin D3) 25 1,000 unit PO QAM 09/27/19 02/18/24 mcg (1,000 unit) tablet (Vitamin D3) fluticasone 500 mcg-salmeterol 50 1 inh inhalation BID 09/27/19 02/18/24 mcg/dose blistr powdr for inhalation (Advair Diskus) furosemide 80 mg tablet 80 mg PO QAM 09/27/19 02/18/24 pen needle, diabetic 31 gauge x 09/27/19 02/18/2416 (BD Ultra-Fine Mini Pen Needle) potassium chloride 10 mEq 10 meq PO QAM 09/27/19 02/18/24 tablet,extended release(part/cryst) warfarin 5 mg tablet 2.5 - 5 mg PO DIRECTED PRN 09/27/19 02/18/24 zolpidem 5 mg tablet 5 mg PO HS 09/27/19 02/18/24 atenolol 50 mg tablet 50 mg PO QAM 11/13/21 02/18/24 temazepam 15 mg capsule 15 mg PO QHS PRN 11/13/21 02/18/24 empagliflozin 25 mg tablet 25 mg PO DAILY 01/01/24 02/18/24 (Jardiance) cephalexin 500 mg capsule 500 mg PO QID cellulitis 10 days 02/18/24 #40 caps losartan 50 mg tablet 50 mg PO DAILY 02/18/24 02/18/24 Previous Rx's ?Medication ?Instructions ?Recorded cephalexin 500 mg capsule 500 mg PO QID cellulitis 10 days 02/18/24 #40 caps Allergies Allergy/AdvReac Type Severity Reaction Status Date / Time peanut Allergy Severe Anaphylaxis Verified 02/19/24 13:40 lactose Allergy Unknown Diarrhea Verified 02/19/24 13:40 Penicillins Allergy Unknown Pt thinks Verified 02/19/24 13:40 she gets a rash aminophylline Allergy unknown Verified 02/19/24 13:40 amiodarone Allergy unknown Verified 02/19/24 13:40 digoxin Allergy unknown Verified 02/19/24 13:40 enalaprilat (From Vasotec) Allergy unknown Verified 02/19/24 13:40 tree and shrub pollen Allergy Itching Verified 02/19/24 13:40 paper tape Allergy Intermediate Skin Rash, Uncoded 02/19/24 13:40 red and sore General Stated Complaint: SurgicalRecheck SANDRA: 3 Review of Systems All systems reviewed & are unremarkable except as noted in HPI and below Exam Narrative Exam Narrative: GENERAL APPEARANCE: Well-nourished, non-toxic, awake and alert, atraumatic, no acute distress. SKIN: Warm, pink, dry, intact, without rashes/lesions/ulcerations. HEAD: Normocephalic, atraumatic, normal hair distribution for gender/age. EYES: Normal conjunctiva, no exudates on lids/lashes. ENT: Nares patent, no circumoral cyanosis, no facial swelling NECK: Supple, trachea midline, painless cervical ROM. LUNGS/CHEST: Lungs CTA bilaterally, non-labored respirations, normal A/P diameter, symmetrical expansion, no chest wall deformity HEART (CV/PV): Regular rate and rhythm without murmur, no peripheral edema, no JVD. ABDOMEN: Soft, non-distended, no guarding. MSK: Normal ROM, no swelling/deformity to bilateral UEs or LEs, moving all extremities without weakness, no cyanosis, spine midline without tenderness, normal curvature. L LE: Gross swelling to the superior lateral left calf where the known abscess is located with surgical dressing, Homans negative, no skin changes distally, no medial thigh tenderness, pedal pulse 2+, brisk capillary refill, no spreading erythema or lymphadenitis NEURO: Mental Status AAOx4 - alert to person, place, time, events No facial droop, no forehead involvement. Motor: No focal weakness - strength 5/5 in bilateral UEs and LEs, proximal and distal, symmetric. Sensory: sensation intact to light touch globally. Gait normal: patient ambulated without ataxia into ED room. PSYCH: euthymic, cooperative, pleasant, appropriate speech Course Vital Signs Vital signs: Vital Signs Temperature 36.3 C L 02/18/24 09:42 Pulse 107 H 02/18/24 09:42 Respiratory Rate 20 02/18/24 09:42 Blood Pressure 165/80 H 02/18/24 09:42 Pulse Oximetry 93 02/18/24 09:42 Temperature 36.3 C L 02/18/24 09:42 Temperature Source Oral 02/18/24 09:42 Pulse 107 H 02/18/24 09:42 Respiratory Rate 20 02/18/24 09:42 Respiratory Effort Normal 02/18/24 09:55 Blood Pressure 165/80 H 02/18/24 09:42 Pulse Oximetry 93 02/18/24 09:42 Oxygen Delivery Method Room Air 02/18/24 09:42 Oxygen Flow Rate 0 02/18/24 09:42 Pain Level 0 02/18/24 09:42 Lab/Test Results Lab/Test Results: 02/18/24 09:44 Blood Blood Culture - Pending 02/18/24 09:44 Blood Blood Culture - Pending Medical Decision Making This dictation utilizes [id number] dictation software and may contain unedited grammatical errors. 83 year-old female presents to ED today by POV/ambulating, sent by Dr. Foster of [facility] Surgery for procedural drainage of known large abscess on her L leg- was going to be a direct admit for this- but due to capacity the patient will be seen in ED. Quality described as chronic non-healing wound to L leg from a fall back in November, no radiation to fever, erd streaking outward from the area, fever, weakness, nausea, inability to ambulate. Severity is described as moderate. Palliating factors include nothing specific. Provoking factors include nothing specific. Patients' medical history: [ ]. Family and social history: [ ]. Pertinent exam findings / vital signs include L leg swelling diffusely without warmth to touch or severe erythema, has surgical dressing to site, negative Serge's, no medial thigh tenderness/skin changes, NV intact distal to L calf abscess, nontoxic vitals. Differential / pathologies of concern include abscess, sepsis, cellulitis. Diagnostic studies of: -Basic labs performed - CBC, CMP, Lactate, Procalcitonin, CRP/ESR, PT/INR, Blood Cx's. -Lactate/procal neg- unlikely sepsis -CBC no leukocytosis -CRP/ESR mildly elevated -PT/INR for surgical possibility Interventions of: -Consulted with Dr. Foster- she is performing drainage here in ED. ED Course/Assessment/Plan: 83-year-old female with a known large left calf abscess presents at the request of surgical practice, basic labs were performed at the request showing no signs of sepsis or severe infection, the patient was drained here by Dr. Foster, the abscess was fairly serious and it is reasonable for the patient to be discharged on p.o. antibiotics, I did discharge on Keflex as they are allergic to penicillins, recommend Tylenol and ibuprofen, they have surgical follow-up tomorrow. Findings not consistent with sepsis, neurovascular compromise. Disposition of abscess of left leg. Patient verbalized understanding of the plan and return to ED criteria and engaged in shared decision making. Medical Records Medical records reviewed: Yes I reviewed the patient's medical records. Lab Data Lab results reviewed: Yes I reviewed the patient's lab results. Labs: 02/18/24 10:18 Blood Blood Culture - Pending 02/18/24 10:10 Blood Blood Culture - Pending Laboratory Tests Range/Units 02/18/24 10:10 WBC (4.4-10.8) 10^3/uL 6.50 RBC (3.93-5.22) 10^6/uL 4.62 Hgb (11.2-15.7) g/dL 12.6 Hct (36.0-46.0) % 40.3 MCV (80-95) fL 87 MCH (27.0-33.0) pg 27.3 MCHC (32.0-36.0) % 31.3 L RDW (11.7-14.6) % 14.7 H Plt Count (130-400) 10^3/uL 277 MPV (8.0-11.0) fL 9.6 Immature Gran % % 0.8 Neutrophils % % 72.9 Lymphocytes % % 8.3 Monocytes % % 9.7 Eosinophils % % 7.7 Basophils % % 0.6 Nucleated RBC % (0.0-0.3) % 0.0 Absolute Neutrophils (1.2-6.7) 10^3/uL 4.74 Absolute Lymphocytes (1.2-3.4) 10^3/uL 0.54 L Absolute Monocytes (0.1-0.8) 10^3/uL 0.63 Absolute Eosinophils (0.0-0.7) 10^3/uL 0.50 Absolute Basophils (0.0-0.2) 10^3/uL 0.04 ESR (0-30) mm/hr 47 H PT (9.1-11.1) sec 32.8 H INR (0.9-1.1) 3.7 H VBG Lactate (0.6-1.4) mmol/L 1.6 H Sodium (136-145) mmol/L 137 Potassium (3.5-5.1) mmol/L 3.2 L Chloride (98-107) mmol/L 101 Carbon Dioxide (21.0-32.0) mmol/L 26.8 Anion Gap (3-11) mmol/L 9.2 BUN (7-18) mg/dL 19 H Creatinine (0.55-1.02) mg/dL 1.1 H Est GFR (CKD-EPI 2020) (mL/min/1.73m2) 49.55 Glucose (74-106) mg/dL 173 H Calcium (8.5-10.1) mg/dL 9.2 Total Bilirubin (0.2-1.0) mg/dL 0.78 AST (15-37) U/L 28 ALT (14-59) U/L 23 Alkaline Phosphatase (46-116) U/L 120 H C-Reactive Protein (<or=0.5) mg/dL 1.19 H Total Protein (6.4-8.2) g/dL 7.5 Albumin (3.4-5.0) g/dL 3.7 Procalcitonin ng/mL < 0.1 Quality:SDOH Health Related Social Needs: No Data to Display PFSH All Active Problems (Updated 02/18/24 @ 15:20 by FIONA Gonzalez) Abscess of left leg (Acute) Abscess (Acute) Anticoagulated on Coumadin (Acute) Non-healing wound of lower extremity (Acute) Lesion of skin of nose (Acute) Conductive hearing loss in right ear (Acute 02/23/15) Mixed conductive and sensorineural hearing loss of right ear with restricted hearing of left ear (Acute 07/25/16) Sensorineural hearing loss (SNHL) of left ear with restricted hearing of right ear (Acute 07/25/16) Sensorineural hearing loss, bilateral (Acute 02/25/17) Medical History Bunion Memory deficit Subclinical hypothyroidism Elevated TSH Type 2 diabetes mellitus Hypocalcemia CKD (chronic kidney disease) Tricuspid valve regurgitation Facial skin lesion Hyperlipidemia Asthma CAD (coronary artery disease) A-fib HTN (hypertension) Diabetes mellitus Lactose intolerance Osteoporosis Diverticulitis Allergic rhinitis Hiatal hernia Mitral valve stenosis Insomnia Leg cramps Surgical History Mitral valve replaced History of bladder suspension procedure History of tonsillectomy H/O adenoidectomy Family History Father , d. 60 Throat cancer Mother , d. 80 Heart disease Social History Smoking/Tobacco Use Status: Never Smoking risk assessment performed?: Yes Alcohol Intake: never Drug use: Never Substance use type: does not use Household members: none Housing: other Number of Children: 4 Do you feel safe at home: Yes Do you feel safe in your relationship?: Yes Additional Social history: son lives nearby
[2024-02-18 10:24] LABS: Abs Immature Grans 0.05 10^3/uL (0.0-0.06); Absolute Basophil Count 0.04 10^3/uL (0.0-0.2); Absolute Lymphocyte Count 0.54 10^3/uL (1.2-3.4); Absolute Monocyte Count 0.63 10^3/uL (0.1-0.8); Absolute Neutrophil Count 4.74 10^3/uL (1.2-6.7); Basophils % 0.6 %; Eosinophils % 7.7 %; HCT 40.3 % (36.0-46.0); HGB 12.6 g/dL (11.2-15.7); Immature Grans % 0.8 %; Lactate 1.6 mmol/L (0.6-1.4); Lymphocytes % 8.3 %; MCH 27.3 pg (27.0-33.0); MCHC 31.3 % (32.0-36.0); MCV 87 fL (80-95); MPV 9.6 fL (8.0-11.0); Monocytes % 9.7 %; Neutrophils % 72.9 %; Platelet Count 277 10^3/uL (130-400); RBC 4.62 10^6/uL (3.93-5.22); RDW 14.7 % (11.7-14.6); RDW-SD 47.6 fL
[2024-02-18 10:25] LABS: ESR 47 mm/hr (0-30)
[2024-02-18] MEDS: cefTRIAXone 2 GM/50 ML BAG IVPB (10:32)
[2024-02-18 10:33] LABS: INR 3.7 (0.9-1.1); Prothrombin Time 32.8 sec (9.1-11.1)
[2024-02-18 10:43] LABS: ALT 23 U/L (14-59); AST 28 U/L (15-37); Albumin 3.7 g/dL (3.4-5.0); Alkaline Phosphatase 120 U/L (46-116); Anion Gap 9.2 mmol/L (3-11); BUN 19 mg/dL (7-18); Bilirubin, Total 0.78 mg/dL (0.2-1.0); C-Reactive Protein 1.19 mg/dL (<or=0.5); CO2 26.8 mmol/L (21.0-32.0); CREATININE 1.1 mg/dL (0.55-1.02); Calcium 9.2 mg/dL (8.5-10.1); Chloride 101 mmol/L (98-107); Estimated GFR 49.55 (mL/min/1.73m2); Glucose 173 mg/dL (74-106); Potassium 3.2 mmol/L (3.5-5.1); Sodium 137 mmol/L (136-145); Total Protein 7.5 g/dL (6.4-8.2)
[2024-02-18] MEDS: metroNIDAZOLE 500 MG/100 ML BAG 100 MG IVPB (11:05)
[2024-02-18 11:12] LABS: Procalcitonin < 0.1 ng/mL
[2024-02-18] MEDS: Lidocaine 1% Multi-Dose W/EPI 1/100,000 50 ML VIAL (14:43)
--- NOTE | 2024-02-19 18:40 | SCONE_ITS ---
Date of service: 02/18/24 Time of Service: 18:41 History of Present Illness Narrative: Pt is an 83 y/o female well know to me. Has has a hx of a nonhealing wound / DM adn PAD. She had a CT ango of her LE yest which does show a 13cm abscess underneath the wound. Pt is doing well. no headaches. No CP or SOB. no productive cough. no dysuria. repeat labs-cbc/crp/procal are remarkable normal She did receive IV abx in ED- rocephine and flagyl. I did do a focus POCS us of the LLE- specifically the lateral knee region. This does reveal a large fluid pocket 3x8 cm from my calculations. Sushma agrees to needle aspiration- risks being worsening of infection/pain/bleeding (she is on coumadin). The area is prepped and draped steriley using betadine. It is anaesthetized w/ 20cc 1% lidocaine. Using US for guidance, there is surprisingly little fluid. I aspirated only 20cc. This does appear to be mostly serious. This is sent for culture. I did pack the wound w/ 06/05 iodoform packing and kerlix/abd. She will f/u in sx clinic in am for application of anderson. Upon further review of her angio, does have dx, but I don't think this is surgical. She is still fairly active, and maybe some PT might encrouage more walking. As well as using compression hose when she does extensive standing. see results in [facility]. We were not able to obtain NICOLLE in clinic due to arterial calcification. THere is some stenosis, but only moderate and not critical and present in only the peroneal and post tib. large vessels are calcified, but patent. She does have pulses, but they are monophasic. I think she developed the large cavity following her trauma, due to a hematoma which has been slowly resolving. the ulcer over this area is non-viable. I think this area is going to require debridement, as the cavity is down to the bone. And than I think a formal wound vac would be better served for healing purposes. She should have enough blood flow to faciliate healing. Alth w/ her age, and some limits in blood flow, this is proably going to take many months. I don't feel the overlying ulcer is viable, as it continues to breakdown and exhibit no granulation tissue. We will continue w/ PICOs at this time and get her into the OR formal debridemnt in 2 wks and plan on placing a renaysis wound vac. She may need to spend the night post-op. We will also have home health involved for on-going wound care and possibly PT. I did d/w FIONA Bradley. We will plan on sending her home on oral abx. She will f/u in clinic tomorrow. plan surgery 03/02 She will need to hold coumadin. I did personally review her labs/images This document was created with voice activated software and may contain errors. 40 mins spent in direct pt care and 20 in non face to face time PFSH All Active Problems (Updated 02/18/24 @ 15:20 by FIONA Gonzalez) Abscess of left leg (Acute) Abscess (Acute) Anticoagulated on Coumadin (Acute) Non-healing wound of lower extremity (Acute) Lesion of skin of nose (Acute) Conductive hearing loss in right ear (Acute 02/23/15) Mixed conductive and sensorineural hearing loss of right ear with restricted hearing of left ear (Acute 07/25/16) Sensorineural hearing loss (SNHL) of left ear with restricted hearing of right ear (Acute 07/25/16) Sensorineural hearing loss, bilateral (Acute 02/25/17) Medical History Bunion Memory deficit Subclinical hypothyroidism Elevated TSH Type 2 diabetes mellitus Hypocalcemia CKD (chronic kidney disease) Tricuspid valve regurgitation Facial skin lesion Hyperlipidemia Asthma CAD (coronary artery disease) A-fib HTN (hypertension) Diabetes mellitus Lactose intolerance Osteoporosis Diverticulitis Allergic rhinitis Hiatal hernia Mitral valve stenosis Insomnia Leg cramps Surgical History Mitral valve replaced History of bladder suspension procedure History of tonsillectomy H/O adenoidectomy Family History Father , d. 60 Throat cancer Mother , d. 80 Heart disease Social History Smoking/Tobacco Use Status: Never Smoking risk assessment performed?: Yes Alcohol Intake: never Drug use: Never Substance use type: does not use Household members: none Housing: other Number of Children: 4 Do you feel safe at home: Yes Do you feel safe in your relationship?: Yes Additional Social history: son lives nearby Results Last Vital Signs Temp 36.4 C 02/18/24 10:16 Pulse 70 02/18/24 15:16 Resp 19 02/18/24 15:20 BP 154/72 H 02/18/24 15:16 Pulse Ox 96 02/18/24 15:20 Labs 02/18/24 10:10 02/18/24 10:10
--- NOTE | 2024-03-15 09:26 | W.SURGCON ---
Date of service: 02/18/24 Time of Service: 13:00 Assessment and Plan Assessment and plan (1) Anticoagulated on Coumadin: Status: Acute (2) Wound of left lower extremity: Status: Acute Assessment and plan: A POCUS exam was done on the soft tissues of the left lower leg. It does show a by 10 cm fluid cavity fluid cavity underlying the abscess. This is most likely from a hematoma that is reabsorbed from the fall. She is on chronic anticoagulation. Radiology is concerned was that this is an abscess. Patient does consent to doing the ultrasound-guided aspiration for fluid removal. Risks include bleeding and infection The areas prepped and draped in the usual sterile fashion using Betadine scrub solution. Is infiltrated with 10 cc of 1% lidocaine plain. 18-gauge needle is used for aspiration. Only a minimal amount of fluid-approximately 20 cc of serous fluid could be aspirated despite showing a large amount on POCUS exam. There is no bleeding or drainage noted. Compression dressing is applied. Fluid is sent for culture. Tolerated the procedure well without comp complication. I would like to admit her for IV antibiotics. She does not have a fever or elevated white count. Her CRP is relatively normal. And being that the fluid does appear to be serous and not purulent, I am inclined to allow her to be discharged home on oral antibiotics and we will see her in clinic tomorrow. (3) HTN (hypertension): (4) CAD (coronary artery disease): (5) A-fib: (6) Hyperlipidemia: (7) Diabetes mellitus: (8) Type 2 diabetes mellitus: (9) Elevated TSH: (10) Subclinical hypothyroidism: (11) Osteoporosis: (12) Abscess: (13) Asthma: (14) CKD (chronic kidney disease): (15) Hiatal hernia: (16) Nonhealing nonsurgical wound with fat layer exposed: Status: [facility] All Active Problems (Updated 03/15/24 @ 09:28 by Latricia Foster DO) Nonhealing nonsurgical wound with fat layer exposed (Acute) Wound of left lower extremity (Acute) Anticoagulated on Coumadin (Acute) Lesion of skin of nose (Acute) Conductive hearing loss in right ear (Acute 02/23/15) Mixed conductive and sensorineural hearing loss of right ear with restricted hearing of left ear (Acute 07/25/16) Sensorineural hearing loss (SNHL) of left ear with restricted hearing of right ear (Acute 07/25/16) Sensorineural hearing loss, bilateral (Acute 02/25/17) Medical History (Updated 03/15/24 @ 09:28 by Latricia Foster DO) Abscess Bunion Memory deficit Subclinical hypothyroidism Elevated TSH Type 2 diabetes mellitus Hypocalcemia CKD (chronic kidney disease) Tricuspid valve regurgitation Facial skin lesion Hyperlipidemia Asthma CAD (coronary artery disease) A-fib HTN (hypertension) Diabetes mellitus Lactose intolerance Osteoporosis Diverticulitis Allergic rhinitis Hiatal hernia Mitral valve stenosis Insomnia Leg cramps Surgical History (Updated 03/02/24 @ 00:08 by RODRI RAMÍREZ) Status post excisional debridement (~02/2024) Left Leg Mitral valve replaced History of bladder suspension procedure History of tonsillectomy H/O adenoidectomy Family History Father , d. 60 Throat cancer Mother , d. 80 Heart disease Social History Smoking/Tobacco Use Status: Never Smoking risk assessment performed?: Yes Alcohol Intake: never Drug use: Never Substance use type: does not use Household members: none Housing: other Number of Children: 4 Do you feel safe at home: Yes Do you feel safe in your relationship?: Yes Additional Social history: son lives nearby Results Last Vital Signs Temp 36.4 C 02/18/24 10:16 Pulse 70 02/18/24 15:16 Resp 19 02/18/24 15:20 BP 154/72 H 02/18/24 15:16 Pulse Ox 96 02/18/24 15:20 Labs 02/18/24 10:10 02/18/24 10:10
== END 2024-02-18 15:31 | disposition home or self-care (01) ==
PROVIDERS: Emergency Provider Physician Assistant; PCP Family Medicine
DX: L02.416 Cutaneous abscess of left lower limb (principal); Z79.01 Long term (current) use of anticoagulants
CPT/HCPCS: 10005; 36415; 80053; 84145; 85652; 87040; 87077; 96365; 96367; 99284; 83605; 85025; 85610; 86140; 87070; 87186; 87205; 99283; J0696; J1836; J2004

== ENCOUNTER → 2024-02-19 12:52 | Outpatient (BNVA) | payer OTHER, MEDICAID, SELFPAY | PROVIDERS: PCP Family Medicine; Referring Provider Family Medicine; Visit Provider Surgery | DX: S81.802D Unspecified open wound, left lower leg, subsequent encounter (principal); X58.XXXD Exposure to other specified factors, subsequent encounter; R60.0 Localized edema | CPT/HCPCS: 97605 ==

== ENCOUNTER → 2024-02-20 10:01 | Outpatient (BNVA) | payer OTHER, MEDICAID, SELFPAY | PROVIDERS: PCP Family Medicine; Referring Provider Family Medicine; Visit Provider Physical Therapy Assistant | DX: S81.802D Unspecified open wound, left lower leg, subsequent encounter (principal); X58.XXXD Exposure to other specified factors, subsequent encounter | CPT/HCPCS: 11042 ==

== ENCOUNTER 2024-02-21 09:39 | Emergency (ER) | payer OTHER, MEDICAID, SELFPAY ==
[2024-02-21 09:43] VITALS: BP 107/75; PULSE 91; RESP 14; TEMP 36.6; O2SAT 97
--- NOTE | 2024-02-21 09:55 | ED.GENADUL_ITS ---
Discharge Plan Disposition Patient Disposition: Home Discharge Details Clinical Impression: Non-healing wound of lower extremity Primary Care Provider: Mell Cueto ED Provider: Felipe Ross Home Meds and New Rx's Prescriptions: Continued atenolol 50 mg tablet 50 mg PO QAM temazepam 15 mg capsule 15 mg PO QHS PRN Jardiance 25 mg tablet 25 mg PO DAILY cephalexin 500 mg capsule 500 mg PO QID 10 Days Qty: 40 0RF albuterol sulfate [ProAir HFA] 90 mcg/actuation Hfa Aerosol Inhaler 2 puff inhalation QID fluticasone propion-salmeterol [Advair Diskus] 500-50 mcg/dose blister with device 1 inh INHALATION BID Patient Comments: INL 1 PUFF PO BID furosemide 80 mg tablet 80 mg PO QAM Patient Comments: TK 1 T PO QD cetirizine 10 mg tablet 10 mg PO QAM Patient Comments: TK 1 T PO D PRN cholecalciferol (vitamin D3) [Vitamin D3] 25 mcg (1,000 unit) tablet 1,000 unit PO QAM Patient Comments: TAKE 1 TABLET BY MOUTH ONCE DAILY atorvastatin [Lipitor] 10 mg Tablet 10 mg PO QPM potassium chloride 10 mEq tablet,ER particles/crystals 10 meq PO QAM Patient Comments: TK 1 T PO QD zolpidem 5 mg tablet 5 mg PO HS warfarin 5 mg tablet 2.5 - 5 mg PO DIRECTED PRN Patient Comments: TK 1 T PO D UTD Rx Instructions: 2.5 M/Th - 5 all other days (DME) pen needle, diabetic [BD Ultra-Fine Mini Pen Needle] 31 gauge x 3/16 needle MISCELLANEOUS Patient Comments: INJECT INSULIN SUBCUTANEOUSLY DIRECTED. ONCE A DAY alendronate 70 mg tablet 70 mg PO DIRECTED Patient Comments: TK 1 T PO WEEKLY ON AN EMPTY STOMACH WITH BIG GLASS OF WATER DONT LIE DOWN FOR AN HOUR Rx Instructions: weekly losartan 50 mg tablet 50 mg PO DAILY Patient Comments: TAKE ONE TABLET BY MOUTH EVERY DAY Discharge Instructions Instructions: Wound Infection Additional Instructions: You were seen in the emergency department for your dressing change. Please return to the emergency department as we discussed if you develop fevers chills streaking signs of infection. Otherwise please follow-up with your general surgery team next week. Please continue taking the antibiotics that have been prescribed. HPI General Date/Time Provider Initiated Documentation: 02/21/24 09:41 . HPI Narrative: MDM This is an overall well-appearing normothermic and not tachycardic 83-year-old female with left lower extremity packed abscess but no signs of superinfection so no indication for lactate blood cultures nor empiric IV antibiotics. Patient has been seen by the general surgery team so I paged on-call surgeon, Dr. Ledbetter. No pain or proportion to suggest necrotizing soft tissue infection. Left lower extremity warm well-perfused so I am not concerned for critical limb ischemia so I did not feel the patient required CT angiogram. Patient recently had lab work given my low suspicion for sepsis I did not obtain labs. Patient also recently had an INR check so I did not repeat her INR. She has taken her morning cephalexin. 10:50 AM I met with Dr. Ledbetter at bedside. He changed the patient's dressing. Patient will follow-up in general surgery clinic. Patient I discussed return to the ED for any fevers chills streaking signs of infection or any vomiting that prevented her from taking her antibiotics. Patient understood her return indications and she was discharged with empiric trial of expectant outpatient management. HPI This is an 83-year-old anticoagulated female with infected left lower extremity hematoma which became an abscess in the emergency department after arriving via private vehicle in the setting of request for dressing change. Patient reports falling several months ago. She has been ambulatory since her fall. She has recently developed an abscess and has been followed by the general surgery team. She takes cephalexin. She recently had lab works. Surgery completed a bedside incision and drainage and have not been completing bedside dressing changes daily. Patient is due to follow-up in general surgery clinic next week. She denies any other falls. She denies chest pain shortness of breath.No dysuria cough fevers or shortness of breath. No fevers nausea nor vomiting. Exam General: Well-appearing in no acute distress speaking in complete sentences. Head: Normocephalic, atraumatic. Eye: Extraocular eye movements intact. No conjunctival injection. No scleral icterus. Ear, nose, mouth, throat: Grossly normal inspection. Normal voice, handling secretions normally. Neck: Trachea midline. Cardiovascular: Well-perfused distal extremities. Respiratory: Nonlabored respiration. Gastrointestinal: Nondistended abdomen. Musculoskeletal: As shown in the following photo there is an approximately 3 x 3 cm open wound on the patient's left lateral lower extremity just distal to her left knee. She has a warm left foot that is well-perfused with 2+ PT and DP pulses. No underlying bony tenderness. Skin: Normal for age and race, grossly normal temperature and turgor. No acute rash. Neurologic: Alert and appropriate, no apparent acute deficits. Psychiatric: Mood and manner are appropriate. Grooming and personal hygiene are appropriate. Related Data Home Medications ?Medication ?Instructions ?Recorded ?Confirmed albuterol sulfate 90 mcg/actuation 2 puff inhalation QID 09/27/19 02/21/24 aerosol inhaler (ProAir HFA) alendronate 70 mg tablet 70 mg PO DIRECTED 09/27/19 02/21/24 atorvastatin 10 mg tablet (Lipitor) 10 mg PO QPM 09/27/19 02/21/24 cetirizine 10 mg tablet 10 mg PO QAM 09/27/19 02/21/24 cholecalciferol (vitamin D3) 25 1,000 unit PO QAM 09/27/19 02/21/24 mcg (1,000 unit) tablet (Vitamin D3) fluticasone 500 mcg-salmeterol 50 1 inh inhalation BID 09/27/19 02/21/24 mcg/dose blistr powdr for inhalation (Advair Diskus) furosemide 80 mg tablet 80 mg PO QAM 09/27/19 02/21/24 pen needle, diabetic 31 gauge x 09/27/19 02/21/24/ (BD Ultra-Fine Mini Pen Needle) potassium chloride 10 mEq 10 meq PO QAM 09/27/19 02/21/24 tablet,extended release(part/cryst) warfarin 5 mg tablet 2.5 - 5 mg PO DIRECTED PRN 09/27/19 02/21/24 zolpidem 5 mg tablet 5 mg PO HS 09/27/19 02/21/24 atenolol 50 mg tablet 50 mg PO QAM 11/13/21 02/21/24 temazepam 15 mg capsule 15 mg PO QHS PRN 11/13/21 02/21/24 empagliflozin 25 mg tablet 25 mg PO DAILY 01/01/24 02/21/24 (Jardiance) cephalexin 500 mg capsule 500 mg PO QID cellulitis 10 days 02/18/24 02/21/24 #40 caps losartan 50 mg tablet 50 mg PO DAILY 02/18/24 02/21/24 Previous Rx's ?Medication ?Instructions ?Recorded cephalexin 500 mg capsule 500 mg PO QID cellulitis 10 days 02/18/24 #40 caps Allergies Allergy/AdvReac Type Severity Reaction Status Date / Time peanut Allergy Severe Anaphylaxis Verified 02/21/24 09:46 lactose Allergy Unknown Diarrhea Verified 02/21/24 09:46 Penicillins Allergy Unknown Pt thinks Verified 02/21/24 09:46 she gets a rash aminophylline Allergy unknown Verified 02/21/24 09:46 amiodarone Allergy unknown Verified 02/21/24 09:46 digoxin Allergy unknown Verified 02/21/24 09:46 enalaprilat (From Vasotec) Allergy unknown Verified 02/21/24 09:46 tree and shrub pollen Allergy Itching Verified 02/21/24 09:46 paper tape Allergy Intermediate Skin Rash, Uncoded 02/21/24 09:46 red and sore General Stated Complaint: Cellulitis SANDRA: 4 Course Vital Signs Vital signs: Vital Signs Temperature 36.6 C 02/21/24 09:43 Pulse 91 H 02/21/24 09:43 Respiratory Rate 14 02/21/24 09:43 Blood Pressure 107/75 02/21/24 09:43 Pulse Oximetry 97 02/21/24 09:43 Temperature 36.6 C 02/21/24 09:43 Temperature Source Oral 02/21/24 09:43 Pulse 91 H 02/21/24 09:43 Respiratory Rate 14 02/21/24 09:43 Blood Pressure 107/75 02/21/24 09:43 Blood Pressure Position Sitting 02/21/24 09:43 Pulse Oximetry 97 02/21/24 09:43 Oxygen Delivery Method Room Air 02/21/24 09:43 Oxygen Flow Rate 0 02/21/24 09:43 Pain Level 3 02/21/24 09:43 Medical Decision Making Quality:SDOH Health Related Social Needs: 2 No Data to Display PFSH All Active Problems (Updated 02/21/24 @ 10:50 by Felipe Ross MD) Abscess of left leg (Acute) Abscess (Acute) Anticoagulated on Coumadin (Acute) Non-healing wound of lower extremity (Acute) Lesion of skin of nose (Acute) Conductive hearing loss in right ear (Acute 02/23/15) Mixed conductive and sensorineural hearing loss of right ear with restricted hearing of left ear (Acute 07/25/16) Sensorineural hearing loss (SNHL) of left ear with restricted hearing of right ear (Acute 07/25/16) Sensorineural hearing loss, bilateral (Acute 02/25/17) Medical History Bunion Memory deficit Subclinical hypothyroidism Elevated TSH Type 2 diabetes mellitus Hypocalcemia CKD (chronic kidney disease) Tricuspid valve regurgitation Facial skin lesion Hyperlipidemia Asthma CAD (coronary artery disease) A-fib HTN (hypertension) Diabetes mellitus Lactose intolerance Osteoporosis Diverticulitis Allergic rhinitis Hiatal hernia Mitral valve stenosis Insomnia Leg cramps Surgical History Mitral valve replaced History of bladder suspension procedure History of tonsillectomy H/O adenoidectomy Family History Father , d. 60 Throat cancer Mother , d. 80 Heart disease Social History Smoking/Tobacco Use Status: Never Smoking risk assessment performed?: Yes Alcohol Intake: never Drug use: Never Substance use type: does not use Household members: none Housing: other Number of Children: 4 Do you feel safe at home: Yes Do you feel safe in your relationship?: Yes Additional Social history: son lives nearby
--- NOTE | 2024-02-21 11:03 | PGE_ITS ---
Date of Service Date of service: 02/21/24 Time of Service: 11:03 Assessment and Plan Assessment and plan (1) Non-healing wound of lower extremity: Status: Acute Assessment and plan: 83-year-old woman with a nonhealing lower extremity wound that was debrided in the last 36 hours or so. It looks healthy and viable. It is too early for any granulation tissue to be present. There is no evidence of infection. I help teach the patient how to pack it herself and she was quite on board with that process and did well. I counseled her to change the packing twice a day for the next week or 2. She will follow-up in the office next week to reassess. Qualifiers: Encounter type: subsequent encounter Laterality: left Qualified Code(s): S81.802D - Unspecified open wound, left lower leg, subsequent encounter Subjective Subjective Interval history since last seen: Patient has no complaints. She is not having any pain. No fevers. Exam Narrative Exam Narrative: Left lower extremity: Just beneath the knee and slightly lateral is a soft tissue wound cavity. The wound cavity appears viable and there is no fibrinous or tissue within it. There is also no granulation tissue and it but it is too early for that. There is no surrounding erythema. There is no foul odor. I removed the packing and assisted the patient/taught the patient how to pack it herself. The packing itself only has serous output saturating it. Objective Last Vital Signs Temp 97.8 F 02/21/24 09:43 Pulse 91 H 02/21/24 09:43 Resp 14 02/21/24 09:43 BP 107/75 02/21/24 09:43 Pulse Ox 97 02/21/24 09:43 Time Spent with Patient Time Spent with Patient: <25 minutes Time was spent: referring, communicating with other health dog day care attendant and counseling the patient
== END 2024-02-21 11:05 | disposition home or self-care (01) ==
PROVIDERS: Emergency Provider Emergency Medicine; PCP Family Medicine
DX: S81.802D Unspecified open wound, left lower leg, subsequent encounter (principal); X58.XXXD Exposure to other specified factors, subsequent encounter
CPT/HCPCS: 99281; 99282

== ENCOUNTER → 2024-02-23 09:57 | Outpatient (BNVA) | payer OTHER, MEDICAID, SELFPAY | PROVIDERS: PCP Family Medicine; Referring Provider Family Medicine; Visit Provider Physical Therapy Assistant | DX: S81.802D Unspecified open wound, left lower leg, subsequent encounter (principal); X58.XXXD Exposure to other specified factors, subsequent encounter ==

== ENCOUNTER 2024-02-24 10:25 | Observation (INO) | payer OTHER, MEDICAID, SELFPAY ==
--- NOTE | 2024-02-24 | DI.MRI_ITS ---
Exam(s) MR LOWER EXTREMITY LT WO/W EXAM: MR LOWER EXTREMITY LT WO/W CLINICAL HISTORY: Necrotizing soft tissue infection TECHNIQUE: Multiplanar multisequence MRI was performed on 1.5 rosa unit with both pre and post cont rast infused sequences. Contrast injected was 13 mL Dotarem COMPARISON: CT CT ABD AORTA CTA W RUNOFF from 02/17/2024 US POCUS EXAM from 02/18/2024 FINDINGS: EXTRA MUSCULAR SOFT TISSUES: There is a large open wound in the anterior lateral calf just below the knee level. This is associated with a prominent deep subcutaneous fluid collection-probable abscess as evident on recent CT scan of 02/17/2024, this abnormal collection measuring 6.5 cm wide by 13 cm c raniocaudal by 1.7 cm AP. This collection contains multiple septations and is therefore probably loc ulated. It also contains foci of signal dropout consistent with air-gas which may be related to the infection and/or the surgical drainage procedure which has been performed since the CT scan of 2023. This infection-collection extends down to the surface of the anterior compartment extensor mus culature but does not appear to extend through the fascia at this level into the musculature itself. MUSCLES: There is no abnormal intramuscular signal within the subjacent anterior extensor compartment musculature. No abnormal intramuscular enhancement. No intramuscular gas. MARROW:There is no abnormal marrow signal to suggest osteomyelitis in the tibia and fibula.. There a re no significant osseous lesions. KNEE JOINT: No evidence of joint effusion. No abnormal signal within the anterior intra-articular Ho ffa fat. Visualized ipsilateral patellar ligament appears intact. IMPRESSION: 1. Large loculated deep subcutaneous fluid collection which appears to have undergone interval incisi on for purposes of drainage since the recent CT scan of 02/17/2024. There is gauze material in the w ound.. Air/Gas bubbles also noted within the collection which are either related to introduced air f rom the recent surgical procedure and or from the infection itself. Size of the collection measures 13 cm craniocaudal by 6.5 cm wide by 1.7 cm AP. The collection extends down to the deepest aspect of the subcutaneous fat-pre muscular fascia but does not appear to involve the subjacent musculature of the anterior extensor compartment. 2. No evidence of osteomyelitis. 3. No ipsilateral knee joint effusion. DATA REPOSITORY:
[2024-02-24 10:30] VITALS: BP 126/60; PULSE 64; RESP 14; TEMP 36.7; O2SAT 97
[2024-02-24] MEDS: PIPERACILLIN/TAZO 2.25 GM in Normal Saline 50 ML IVPB ×2 (12:01→18:33)
--- NOTE | 2024-02-24 12:11 | W.PM.HP.N ---
Date of service: 02/24/24 Time of Service: 12:23 Assessment and Plan Assessment and plan (1) Non-healing wound of lower extremity: Status: Acute Assessment and plan: Her fatigue, malaise, and large wound are certainly concerning for source of sepsis. Admit her to the hospital, and check some basic labs and trend her hemodynamics. I do think the wound requires more debridement and tissue culture. I will start her on some broad-spectrum antibiotics for right now, and reassess over the next 24 hours. Qualifiers: Encounter type: subsequent encounter Laterality: left Qualified Code(s): S81.802D - Unspecified open wound, left lower leg, subsequent encounter History of Present Illness History of Present Illness Chief Complaint: fatigue and malaise Narrative: Susie is 83 years old, and she has been dealing with a wound on the left lower extremity for many weeks. Sounds like it started in the beginning of December. She was standing level fall, developed a contusion and hematoma just distal to the left knee. She been seen in the office on multiple occasions, and various attempts been made to manage this. This does range from topical debridement to anderson negative pressure therapy. Most recent, underwent aspiration of a fluid collection distal to the wound, followed by debridement of the soft tissue contusion site. Microbiology from debridement on the demonstrated heavy growth of gram-positive and gram-negative bautista, as well as a pansensitive Acinetobacter. She was treated with cefazolin. Most recent debridement occurred on February 19. This left her with a 5 x 6 cm round wound that required packing. She had a little bit of difficulty with packing changes, she came back to the emergency department the next day. She was afebrile, and hemodynamics were reassuring. She was instructed how to care for the wound, and discharged home. She came back to the office yesterday with a little bit of fatigue and malaise, and the dressings were changed once again. She came back again today with worsening symptoms. She denies any subjective fevers. In the office, the wound tracked quite a bit towards the knee, as well as distally onto the anterior calf. I sharply debrided some tissue in the office, but the full extent of the wound was difficult to evaluate. Therefore, with symptoms of evolving sepsis, and the significant soft tissue wound to the left lower extremity, I felt admission to the hospital for intravenous antibiotics, and likely more aggressive debridement is the safest course of action. Review of Systems Constitutional Constitutional: Reports difficulty sleeping, Reports fatigue, Denies fever(s), Reports malaise, Reports poor appetite and Reports weakness Eyes Eyes: Reports system reviewed and no additional complaints, except as documented ENT Ears, Nose, Mouth, and Throat: Reports system reviewed and no additional complaints, except as documented Cardiovascular Cardiovascular: Denies chest pain and Denies dyspnea Respiratory Respiratory: Denies chest congestion, Denies cough and Denies dyspnea Gastrointestinal Gastrointestinal: Denies abdominal pain Genitourinary Genitourinary: Reports system reviewed and no additional complaints, except as documented Musculoskeletal Musculoskeletal: Reports abnormal gait, Reports muscle weakness and Reports numbness Comments: Peripheral neuropathy Neurologic Neurologic: Reports abnormal gait, Reports numbness and Reports weakness Endocrine Endocrine: Reports fatigue Hematologic/Lymphatic Hematologic/Lymphatic: Reports easy bleeding and Reports easy bruising PFSH All Active Problems Abscess of left leg (Acute) Abscess (Acute) Anticoagulated on Coumadin (Acute) Non-healing wound of lower extremity (Acute) Lesion of skin of nose (Acute) Conductive hearing loss in right ear (Acute 02/23/15) Mixed conductive and sensorineural hearing loss of right ear with restricted hearing of left ear (Acute 07/25/16) Sensorineural hearing loss (SNHL) of left ear with restricted hearing of right ear (Acute 07/25/16) Sensorineural hearing loss, bilateral (Acute 02/25/17) Medical History Bunion Memory deficit Subclinical hypothyroidism Elevated TSH Type 2 diabetes mellitus Hypocalcemia CKD (chronic kidney disease) Tricuspid valve regurgitation Facial skin lesion Hyperlipidemia Asthma CAD (coronary artery disease) A-fib HTN (hypertension) Diabetes mellitus Lactose intolerance Osteoporosis Diverticulitis Allergic rhinitis Hiatal hernia Mitral valve stenosis Insomnia Leg cramps Surgical History Mitral valve replaced History of bladder suspension procedure History of tonsillectomy H/O adenoidectomy Family History Father , d. 60 Throat cancer Mother , d. 80 Heart disease Social History Smoking/Tobacco Use Status: Never Smoking risk assessment performed?: Yes Alcohol Intake: never Drug use: Never Substance use type: does not use Household members: none Housing: other Number of Children: 4 Do you feel safe at home: Yes Do you feel safe in your relationship?: Yes Additional Social history: son lives nearby Meds Allergies and Home Medications Allergies Allergy/AdvReac Type Severity Reaction Status Date / Time peanut Allergy Severe Anaphylaxis Verified 02/21/24 09:46 lactose Allergy Unknown Diarrhea Verified 02/21/24 09:46 Penicillins Allergy Unknown Pt thinks Verified 02/21/24 09:46 she gets a rash aminophylline Allergy unknown Verified 02/21/24 09:46 amiodarone Allergy unknown Verified 02/21/24 09:46 digoxin Allergy unknown Verified 02/21/24 09:46 enalaprilat (From Vasotec) Allergy unknown Verified 02/21/24 09:46 tree and shrub pollen Allergy Itching Verified 02/21/24 09:46 paper tape Allergy Intermediate Skin Rash, Uncoded 02/21/24 09:46 red and sore Home Medications ?Medication ?Instructions ?Recorded ?Confirmed ?Type albuterol sulfate 90 mcg/actuation 2 puff inhalation QID PRN PRN 09/27/19 02/24/24 History aerosol inhaler (ProAir HFA) alendronate 70 mg tablet 70 mg PO DIRECTED 09/27/19 02/24/24 History atorvastatin 10 mg tablet (Lipitor) 10 mg PO QPM 09/27/19 02/24/24 History cetirizine 10 mg tablet 10 mg PO QAM 09/27/19 02/24/24 History cholecalciferol (vitamin D3) 25 1,000 unit PO QAM 09/27/19 02/24/24 History mcg (1,000 unit) tablet (Vitamin D3) furosemide 80 mg tablet 80 mg PO QAM 09/27/19 02/24/24 History potassium chloride 10 mEq 10 meq PO QAM 09/27/19 02/24/24 History tablet,extended release(part/cryst) warfarin 5 mg tablet 2.5 - 5 mg PO DIRECTED PRN 09/27/19 02/24/24 History atenolol 50 mg tablet 50 mg PO QAM 11/13/21 02/24/24 History empagliflozin 25 mg tablet 25 mg PO DAILY 01/01/24 02/24/24 History (Jardiance) cephalexin 500 mg capsule 500 mg PO QID cellulitis 10 days 02/18/24 02/24/24 Rx #40 caps losartan 50 mg tablet 50 mg PO DAILY 02/18/24 02/24/24 History Exam Const General: cooperative and ill appearing Nutritional Appearance: overweight Orientation: alert, awake and oriented x3 HENMT Head: normal to inspection Eyes General: appearance normal, both eyes and all related structures Neck Neck: normal visual inspection, full ROM and no lymphadenopathy Resp Effort & Inspection: normal respiratory effort and no audible wheezes Auscultation: clear to auscultation bilaterally Cardio Rhythm: other (Irregular) Heart Sounds: S1 normal and S2 normal Extrem Other: There is a wound on the left lower extremity. It tracks up towards the knee, and down onto the anterior calf. There is necrotic debris at the wound base with no bleeding tissue. Results Labs 02/24/24 14:21 02/24/24 14:21 Last Vital Signs Temp 98.1 F 02/24/24 10:30 Pulse 64 02/24/24 10:30 Resp 14 02/24/24 10:30 BP 126/60 02/24/24 10:30 Pulse Ox 97 02/24/24 10:30 Time Spent Time spent with Patient: 40-54 minutes Time was spent: preparing to see the patient(eg.review tests), obtaining and/or reviewing separately otained hiistory, ordering medications,tests, procedures, indepentently interpreting results, counseling the patient and care coordination
[2024-02-24 14:32] LABS: Abs Immature Grans 0.07 10^3/uL (0.0-0.06); Absolute Basophil Count 0.05 10^3/uL (0.0-0.2); Absolute Eosinophil Count 0.35 10^3/uL (0.0-0.7); Absolute Lymphocyte Count 0.51 10^3/uL (1.2-3.4); Absolute Monocyte Count 0.62 10^3/uL (0.1-0.8); Absolute Neutrophil Count 5.96 10^3/uL (1.2-6.7); Basophils % 0.7 %; Eosinophils % 4.6 %; HCT 42.2 % (36.0-46.0); HGB 13.4 g/dL (11.2-15.7); Immature Grans % 0.9 %; Lymphocytes % 6.7 %; MCH 27.3 pg (27.0-33.0); MCHC 31.8 % (32.0-36.0); MCV 86 fL (80-95); MPV 9.7 fL (8.0-11.0); Monocytes % 8.2 %; Neutrophils % 78.9 %; Platelet Count 307 10^3/uL (130-400); RDW-SD 47.7 fL; WBC 7.56 10^3/uL (4.4-10.8)
[2024-02-24 14:42] LABS: INR 2.6 (0.9-1.1); Prothrombin Time 23.9 sec (9.1-11.1)
[2024-02-24 14:44] LABS: Anion Gap 7.7 mmol/L (3-11); BUN 23 mg/dL (7-18); CO2 31.3 mmol/L (21.0-32.0); CREATININE 1.1 mg/dL (0.55-1.02); Calcium 9.4 mg/dL (8.5-10.1); Chloride 98 mmol/L (98-107); Estimated GFR 49.55 (mL/min/1.73m2); Glucose 143 mg/dL (74-106); Potassium 3.5 mmol/L (3.5-5.1); Sodium 137 mmol/L (136-145)
[2024-02-24 15:08] VITALS: BP 132/49; PULSE 66; RESP 16; TEMP 36.5; O2SAT 97
[2024-02-24] MEDS: Gadoterate meglumine 20 ML SYRINGE IVP (15:39)
[2024-02-24] MEDS: Normal Saline Flush 10 ML SYR IVP ×2 (15:41→21:03)
[2024-02-24] MEDS: Budesonide/Formoterol 160/4.5 6 GM 60 PUFF INH IH (20:36)
[2024-02-24] MEDS: Atorvastatin 10 MG TAB PO (21:02)
[2024-02-24] MEDS: Zolpidem 5 MG TAB PO (21:02)
[2024-02-24 23:37] VITALS: BP 101/75; PULSE 74; RESP 16; TEMP 36.6; O2SAT 93
[2024-02-25] VITALS (21 sets, daily range): BP systolic 88–171; BP diastolic 39–82; PULSE 48–74; RESP 15–18; TEMP 35.9–37; O2SAT 94–98; BMI 26.8
[2024-02-25] MEDS: PIPERACILLIN/TAZO 2.25 GM in Normal Saline 50 ML IVPB ×4 (00:11→17:33)
[2024-02-25] MEDS: Acetaminophen 325 MG TAB 650 MG PO ×3 (01:24→22:21)
--- NOTE | 2024-02-25 07:18 | W.PM.PROGNOT ---
Date of Service Date of service: 02/25/24 Time of Service: 07:18 Assessment and Plan Assessment and plan (1) Abscess of left leg: Status: Acute Assessment and plan: I was able to review her MRI yesterday, and fortunately, there are no signs of any infection in the joint space at this point. There is quite a bit of devitalized tissue that still needs debridement. I think that he would be able to tolerate this in the operating room today. I did explain the slight increased risk of bleeding based on her anticoagulation, but I think we can safely proceed to get some of the devitalized tissue out and help reduce any bacterial burden in the wound at this point. Obviously, it may require further debridements in the future. Subjective Subjective Interval history since last seen: But he did pretty well through the night, with no major subjective complaints. She did have a little bit of difficulty sleeping because of the noise in the hospital. Otherwise she feels about herself. Exam Extrem Other: Left lower extremity looks about the same as yesterday. There is no significant erythema. Objective Last Vital Signs Temp 97.9 F 02/24/24 23:37 Pulse 74 02/24/24 23:37 Resp 16 02/24/24 23:37 BP 101/75 02/24/24 23:37 Pulse Ox 93 02/24/24 23:37 Laboratory Results - last 24 hr 02/24/24 14:21 WBC 7.56 RBC 4.90 Hgb 13.4 Hct 42.2 MCV 86 MCH 27.3 MCHC 31.8 L RDW 15.0 H Plt Count 307 MPV 9.7 Immature Gran % 0.9 Neutrophils % 78.9 Lymphocytes % 6.7 Monocytes % 8.2 Eosinophils % 4.6 Basophils % 0.7 Nucleated RBC % 0.0 Absolute Neutrophils 5.96 Absolute Lymphocytes 0.51 L Absolute Monocytes 0.62 Absolute Eosinophils 0.35 Absolute Basophils 0.05 PT 23.9 H INR 2.6 H Sodium 137 Potassium 3.5 Chloride 98 Carbon Dioxide 31.3 Anion Gap 7.7 BUN 23 H Creatinine 1.1 H Est GFR (CKD-EPI 2020) 49.55 Glucose 143 H Calcium 9.4 Time Spent with Patient Time Spent with Patient: 25-34 minutes Time was spent: preparing to see the patient(eg.review tests), indepentently interpreting results, counseling the patient and care coordination
[2024-02-25] MEDS: Budesonide/Formoterol 160/4.5 6 GM 60 PUFF INH IH ×2 (08:20→20:50)
--- NOTE | 2024-02-25 09:19 | ANES.PREOP_ITS ---
General Info Date of Service Date Performed: 02/25/24 Height: 5 ft 2 in Weight: 66.6 kg Body Mass Index (BMI): 26.8 Surgical Procedure: Operation Date: 02/25/24 09:55 Proposed Procedure Side Surgeon p Leg Wound Washout & Debridement, Wound VAC Left [place] MD Meds Allergies and Home Medications Allergies Allergy/AdvReac Type Severity Reaction Status Date / Time peanut Allergy Severe Anaphylaxis Verified 02/21/24 09:46 lactose Allergy Unknown Diarrhea Verified 02/21/24 09:46 Penicillins Allergy Unknown Pt thinks Verified 02/21/24 09:46 she gets a rash aminophylline Allergy unknown Verified 02/21/24 09:46 amiodarone Allergy unknown Verified 02/21/24 09:46 digoxin Allergy unknown Verified 02/21/24 09:46 enalaprilat (From Vasotec) Allergy unknown Verified 02/21/24 09:46 tree and shrub pollen Allergy Itching Verified 02/21/24 09:46 paper tape Allergy Intermediate Skin Rash, Uncoded 02/21/24 09:46 red and sore Home Medication ?Medication ?Instructions ?Recorded albuterol sulfate 90 mcg/actuation 2 puff inhalation QID PRN PRN 09/27/19 aerosol inhaler (ProAir HFA) alendronate 70 mg tablet 70 mg PO DIRECTED 09/27/19 atorvastatin 10 mg tablet (Lipitor) 10 mg PO QPM 09/27/19 cetirizine 10 mg tablet 10 mg PO QAM 09/27/19 cholecalciferol (vitamin D3) 25 1,000 unit PO QAM 09/27/19 mcg (1,000 unit) tablet (Vitamin D3) furosemide 80 mg tablet 80 mg PO QAM 09/27/19 potassium chloride 10 mEq 10 meq PO QAM 09/27/19 tablet,extended release(part/cryst) warfarin 5 mg tablet 2.5 - 5 mg PO DIRECTED PRN 09/27/19 atenolol 50 mg tablet 50 mg PO QAM 11/13/21 empagliflozin 25 mg tablet 25 mg PO DAILY 01/01/24 (Jardiance) cephalexin 500 mg capsule 500 mg PO QID cellulitis 10 days 02/18/24 #40 caps losartan 50 mg tablet 50 mg PO DAILY 02/18/24 Current Visit Medications: Current Medications Generic Name Dose Route Start Last Admin Trade Name Freq PRN Reason Stop Dose Admin Acetaminophen 650 mg 02/24/24 10:20 02/25/24 01:24 Acetaminophen 325 Mg Tab PO 650 mg Q4H PRN PRN Administration Pain Albuterol Sulfate 2 puff 02/24/24 16:00 Albuterol Hfa 8 Gm 60 Puff Inh IH QID PRN PRN Alendronate Sodium 70 mg 02/26/24 07:00 Alendronate 70 Mg Tab PO Th@0700 HERBERT Atenolol 50 mg 02/25/24 08:30 Atenolol 50 Mg Tab PO QAM HERBERT Atorvastatin Calcium 10 mg 02/24/24 20:00 02/24/24 21:02 Atorvastatin 10 Mg Tab PO 10 mg QPM HERBERT Administration Budesonide/Formoterol Fumarate 2 puff 02/24/24 20:00 02/25/24 08:20 Budesonide/Formoterol 160/4.5 6 Gm 60 Puff Inh IH 2 puffs BID HERBERT Administration Cholecalciferol 1,000 units 02/25/24 08:30 Cholecalciferol (Vitamin D3) 1,000 Unit Tab PO QAM HERBERT Device 1 each 02/24/24 13:00 Inhaler, Assist Device MC DIRECTED HERBERT Dextrose 0 gm 02/24/24 12:10 Glucose Oral Gel 15 Gm/37.5 Gm Tube PO DIRECTED PRN Dextrose/Water 0 gm 02/24/24 12:10 Dextrose 50%-Water 25 Gm/50 Ml Syr IVP DIRECTED PRN Furosemide 80 mg 02/25/24 08:30 Furosemide 80 Mg Tab PO QAM HERBERT Gadoterate Meglumine 20 ml 02/24/24 15:45 02/24/24 15:39 Gadoterate Meglumine 20 Ml Syringe IVP 03/25/24 23:59 13 ml DIRECTED HERBERT Administration Hydromorphone HCl 0.5 mg 02/24/24 10:20 Hydromorphone 2 Mg/Ml Syr IVP Q6H PRN PRN Piperacillin Sod/Tazobactam 50 mls @ 100 mls/hr 02/24/24 12:00 02/25/24 06:45 Sod 2.25 gm/ Sodium Chloride IVPB 100 mls/hr Q6H HERBERT Administration IV Miscellaneous Supplies 1 each 02/24/24 10:30 Iv Access IV DIRECTED [facility] Insulin Aspart 0 units 02/24/24 17:00 02/25/24 08:10 Insulin Aspart 300 Units/3 Ml Pen SC Not Given 0800,1200,1700 [facility] Protocol Losartan Potassium 50 mg 02/25/24 08:30 Losartan 50 Mg Tab PO DAILY HERBERT Potassium Chloride 10 meq 02/25/24 08:30 Potassium Chloride 10 Meq Tabcr PO QAM HERBERT Psyllium Hydrophilic Mucilloid 1 each 02/25/24 08:30 02/25/24 08:11 Psyllium Pkt PO Not Given DAILY HERBERT Sodium Chloride 0 ml 02/24/24 10:20 Normal Saline Flush 10 Ml Syr IVP PRN PRN Sodium Chloride 0 ml 02/24/24 20:00 02/24/24 21:03 Normal Saline Flush 10 Ml Syr IVP 10 ml BID HERBERT Administration Sodium Chloride 0 ml 02/24/24 10:20 Normal Saline 10 Ml Vial IJ DIRECTED PRN Zolpidem Tartrate 5 mg 02/24/24 20:00 02/24/24 21:02 Zolpidem 5 Mg Tab PO 5 mg HS HERBERT Administration PFSH Active Problems Active Problems: Problem Status Onset Code Abscess of left leg Acute L02.416 Abscess Acute L02.91 Anticoagulated on Coumadin Acute Z79.01 Non-healing wound of lower extremity Acute S81.809A Lesion of skin of nose Acute L98.9 Posterior subcapsular age-related cataract, right eye Resolved H25.041 Cortical cataract of right eye Resolved H26.9 Nuclear sclerotic cataract of right eye Resolved H25.11 Posterior subcapsular age-related cataract of left eye Resolved H25.042 Nuclear sclerotic cataract of left eye Resolved H25.12 Cortical cataract of left eye Resolved H26.9 Conductive hearing loss in right ear Acute 02/23/15 H90.11 Mixed conductive and sensorineural hearing loss of right ear with restricted hearing of left ear Acute 07/25/16 H90.A31 Sensorineural hearing loss (SNHL) of left ear with restricted hearing of right ear Acute 07/25/16 H90.A22 Sensorineural hearing loss, bilateral Acute 02/25/17 H90.3 Medical History Medical History Bunion Memory deficit Subclinical hypothyroidism Elevated TSH Type 2 diabetes mellitus Hypocalcemia CKD (chronic kidney disease) Tricuspid valve regurgitation Facial skin lesion Hyperlipidemia Asthma CAD (coronary artery disease) A-fib HTN (hypertension) Diabetes mellitus Lactose intolerance Osteoporosis Diverticulitis Allergic rhinitis Hiatal hernia Mitral valve stenosis Insomnia Leg cramps Medical History Comments:: has a CPAP machine but doesnt use it Surgical History Surgical History Mitral valve replaced History of bladder suspension procedure History of tonsillectomy H/O adenoidectomy Tobacco Smoking/Tobacco Use Status: Never Alcohol Alcohol Intake: never Substance Use Substance use: Never Substance use type: does not use Vital Signs and Lab Results Vital Signs Most Recent Vital Signs in EMR: Most Recent Vital Signs Temp Pulse Resp BP Pulse Ox 37.0 C 61 16 118/82 95 02/25/24 08:21 02/25/24 08:21 02/25/24 08:21 02/25/24 08:30 02/25/24 08:21 Point of Care Results Point of Care Results: Finger Stick Blood Glucose 152 02/25/24 08:10 Lab Results 02/24/24 14:21 02/24/24 14:21 Blood Type / Crossmatch: 2 No Data to Display Complete Blood Count: 2 White Blood Count 7.56 10^3/uL (4.4-10.8) 02/24/24 14:21 Red Blood Count 4.90 10^6/uL (3.93-5.22) 02/24/24 14:21 Hemoglobin 13.4 g/dL (11.2-15.7) 02/24/24 14:21 Hematocrit 42.2 % (36.0-46.0) 02/24/24 14:21 Platelet Count 307 10^3/uL (130-400) 02/24/24 14:21 Venous Blood Lactate 1.6 mmol/L (0.6-1.4) H 02/18/24 10:10 Complete Metabolic Panel: 2 Sodium 137 mmol/L (136-145) 02/24/24 14:21 Potassium 3.5 mmol/L (3.5-5.1) 02/24/24 14:21 Chloride 98 mmol/L (98-107) 02/24/24 14:21 Carbon Dioxide 31.3 mmol/L (21.0-32.0) 02/24/24 14:21 BUN 23 mg/dL (7-18) H 02/24/24 14:21 Creatinine 1.1 mg/dL (0.55-1.02) H 02/24/24 14:21 Est GFR (CKD-EPI 2020) 49.55 (mL/min/1.73m2) 02/24/24 14:21 Calcium 9.4 mg/dL (8.5-10.1) 02/24/24 14:21 Albumin 3.7 g/dL (3.4-5.0) 02/18/24 10:10 Glucose 143 mg/dL (74-106) H 02/24/24 14:21 C-Reactive Protein 1.19 mg/dL (<or=0.5) H 02/18/24 10:10 Liver Function Panel: 2 Alanine Aminotransferase (ALT/SGPT) 23 U/L (14-59) 02/18/24 10: 10 Aspartate Amino Transf (AST/SGOT) 28 U/L (15-37) 02/18/24 10:10 Coagulation Panel: 2 INR International Normalized Ratio 2.6 (0.9-1.1) H 02/24/24 14 :21 Prothrombin Time 23.9 sec (9.1-11.1) H 02/24/24 14:21 Cardiac Panel: 2 No Data to Display Arterial Blood Gas: 2 No Data to Display Venous Blood Gas: 2 No Data to Display Pancreas Panel: 2 No Data to Display Thyroid Panel: 2 No Data to Display Infectious Disease: 2 No Data to Display Blood Cultures: 2 No Data to Display Toxicology Panel: 2 No Data to Display Imaging and Studies Imaging and Studies Study information below may be from another EMR and interpreted by another provider. Please see original notes in EMR for more complete details. EKG Summary: Conclusion Atrial fibrillation...? atrial activity Left anterior fascicular block IVCD LVH with secondary repolarization abnormality...multi-LVH criteria, abnrm ST-T 01/22/22 Echocardiogram Summary: Conclusion Left ventricle is normal in size. Systolic function is borderline. EF is 50 to 55%. There are no segmental wall motion abnormalities The right ventricle appears normal in size and systolic function Both atria are moderately enlarged The aortic valve is calcified with trace regurgitation There is a mechanical mitral valve prosthesis. There is trace to mild mitral regurgitation The tricuspid valve is structurally normal with moderate to severe regurgitation. Estimated right ventricular systolic pressure is 44 mmHg 11/16/21 Anesthesia Assessment and Plan Anesthesia History Personal History: No History of Anesthesia Complications Family History: No Family History of Anesthesia Complications Exercise Tolerance Exercise Tolerance: Metabolic Equivalents<4 Pertinent Negatives Pertinent Negatives: No Symptoms of GERD Cardiac & Pulmonary Exam Cardiac Exam: Heart Murmur Present (Mechanical valve / loud sytolic murmur) Pulmonary Exam: Clear Bilateral Breath Sounds Implantable Cardiac Device Does patient have a Pacemaker or an ICD?: No Airway Exam Known Difficult Airway: No Mallampati Class: 2 Mouth Opening: Normal (> 3cm) Thyromental Distance: Greater than 3 cm Neck Range of Motion: Full ROM Neck Circumference: Normal Teeth Condition: Removable Dentures/Plates Upper ASA Classification ASA Score: ASA 3 Emergency Case?: No NPO Status NPO Status: NPO Clears >2 hours, Solids >8 hours Anesthesia Plan Resuscitation Status: Full Code Anesthesia Technique: General Anesthesia Airway Planned: LMA Monitors Used: Standard Monitors
[2024-02-25] MEDS: Normal Saline Flush 10 ML SYR IVP ×2 (09:30→20:23)
[2024-02-25] MEDS: Lactated Ringers 1,000 ML 50 ML IV (11:06)
--- NOTE | 2024-02-25 11:17 | INITIAL_ITS ---
Date of service: 02/25/24 Time of Service: 11:17 Care Management Initial Assmt Initial Assessment Reason for Hospitalization: sepsis, infected wound Functional Status/Living Situation Patient Presentation: Sushma was sitting up in a chair eating dinner and visiting with hewr son Atr when CM met with her. She was pleasant in interaction and engaged well with CM. Sushma went to the OR today for a debridement of her leg wound which was necrotic. She tolerated the procedure well and has a wound vac in place. Sushma shared that she anticipates going home tomorrow. When asked about home health fro dressing changes she indicated that she would prefer to return to the Surgical Services office for dressing changes as she has been doing. Sushma is independent at baseline and does not receive any community services. Town of Residence: [facility] Resides with: Alone Significant Other/Family: Local (Sushma has a son and a daughter who live in [facility], a daughter who lives in [place] and a son who lives in [place].) Natural Supports: family Employment Status: Retired Instrumental Activities of Daily Living (ADLs): Independent Medications Medication Management: No Issues/Barriers identified Physical Functioning/Mobility Assistive Device: uses a cane and a walker PRN Advance Directives Advance Directives: Do you have an Advance Directive: Y 01/01/23 09:56 AD On File at [facility]: Y 01/01/23 09:56 Date Asked 12/27/23 01/10/24 01:08 AD Date Reviewed 02/24/24 02/24/24 10:07 COLST On File at [facility] COLST Date Scanned Code Status Resuscitation Status Full Code Portal Pt does not currently have a portal and education provided: No Insurance Coverage/Financial Issues Insurance: [facility] Care Team Visit Care Team Role Provider Type Mell Cueto MD Primary Care Provider [facility] STAFF PHYSICIAN [place] MD Admit Provider [facility] STAFF PHYSICIAN Attending Provider Discharge Potential Discharge Needs: Surgical F/U Appt Anticipated Barriers to Discharge: Medical Status Patient/Family Education Needs: Review discharge instructions, discuss Ask Me Three Transportation: Private vehicle Plan: Anticipate Sushma will be discharged home with no new services when medically cleared. She will follow up with her community providers and plan of care and transport with family. CM will follow and continue to assess for discharge needs. PFSH All Active Problems Abscess of left leg (Acute) Abscess (Acute) Anticoagulated on Coumadin (Acute) Non-healing wound of lower extremity (Acute) Lesion of skin of nose (Acute) Conductive hearing loss in right ear (Acute 02/23/15) Mixed conductive and sensorineural hearing loss of right ear with restricted hearing of left ear (Acute 07/25/16) Sensorineural hearing loss (SNHL) of left ear with restricted hearing of right ear (Acute 07/25/16) Sensorineural hearing loss, bilateral (Acute 02/25/17) Medical History Bunion Memory deficit Subclinical hypothyroidism Elevated TSH Type 2 diabetes mellitus Hypocalcemia CKD (chronic kidney disease) Tricuspid valve regurgitation Facial skin lesion Hyperlipidemia Asthma CAD (coronary artery disease) A-fib HTN (hypertension) Diabetes mellitus Lactose intolerance Osteoporosis Diverticulitis Allergic rhinitis Hiatal hernia Mitral valve stenosis Insomnia Leg cramps Surgical History Mitral valve replaced History of bladder suspension procedure History of tonsillectomy H/O adenoidectomy Family History Father , d. 60 Throat cancer Mother , d. 80 Heart disease Social History Smoking/Tobacco Use Status: Never Smoking risk assessment performed?: Yes Alcohol Intake: never Drug use: Never Substance use type: does not use Household members: none Housing: other Number of Children: 4 Do you feel safe at home: Yes Do you feel safe in your relationship?: Yes Additional Social history: son lives nearby [facility](Care Management) Screening Will the Patient Participate in the Screening?: Yes Do you worry about having a steady place to live?: no Problems where you live: no known problems In the past 12 months, have you had to go without electric, gas, oil or water in your home?: no Have you or anyone in your house had to go without enough food to eat?: no Has lack of transportation kept you from medical appointments or from doing things needed for daily living?: no Has anyone in your support network made you feel unsafe for any reason?: no
--- NOTE | 2024-02-25 11:41 | PHA.REVIEW2 ---
Pharmacy Admission Review Admission Clinical Review Admission Pharmacy Review: Abscess of left leg (Acute) Non-healing wound of lower extremity (Acute) peanut Allergy (Severe, Verified 02/21/24 09:46) Anaphylaxis lactose Allergy (Unknown, Verified 02/21/24 09:46) Diarrhea Penicillins Allergy (Unknown, Verified 02/21/24 09:46) Pt thinks she gets a rash aminophylline Allergy (Verified 02/21/24 09:46) unknown amiodarone Allergy (Verified 02/21/24 09:46) unknown digoxin Allergy (Verified 02/21/24 09:46) unknown enalaprilat (From Vasotec) Allergy (Verified 02/21/24 09:46) unknown tree and shrub pollen Allergy (Verified 02/21/24 09:46) Itching paper tape Allergy (Intermediate, Uncoded 02/21/24 09:46) Skin Rash, red and sore Resuscitation Status Full Code Height 5 ft 2 in Weight 66.6 kg Pharmacy Admission Review Renal Dosing Renal Dosing: BUN 23 mg/dL (7-18) H 02/24/24 14:21 Creatinine 1.1 mg/dL (0.55-1.02) H 02/24/24 14:21 Medications needing adjustments: Reviewed (CrCl 34 mL/min) List of meds needing interventions: Current medications are okay Anticoagulation Anticoagulation: Hgb 13.4 g/dL (11.2-15.7) 02/24/24 14:21 Hct 42.2 % (36.0-46.0) 02/24/24 14:21 Plt Count 307 10^3/uL (130-400) 02/24/24 14:21 INR 2.6 (0.9-1.1) H 02/24/24 14:21 Creatinine 1.1 mg/dL (0.55-1.02) H 02/24/24 14:21 DVT Prophylaxis: Reviewed (None at this time, home warfarin on hold due to procedure today) Opiate Usage Evaluate Pain Scale/Pains Meds: Reviewed (PRn IVP hydromorphone - no doses given so far) Scheduled Bowel Reg ordered if on Opiates?: No Relevant Labs Relevant Labs: Sodium 137 mmol/L (136-145) 02/24/24 14:21 Potassium 3.5 mmol/L (3.5-5.1) 02/24/24 14:21 Chloride 98 mmol/L (98-107) 02/24/24 14:21 Electrolytes, C-Reactive P, ESR: Reviewed (No new labs for today) DM Control DM Control: Glucose 143 mg/dL (74-106) H 02/24/24 14:21 Finger Stick Blood Glucose 152 0810 Finger Stick Blood Glucose 152 0732 Finger Stick Blood Glucose 152 0732 DM Control: Reviewed Insulin Dosing, Diabetic Medication: Has order for SS insulin Cardiac Review BP, HR, EF%: Reviewed (BP and HR WNL) List meds needing interventions: Has order for atenolol 50mg daily, furosemide 80mg daily and losartan 50mg daily QTc Review QTc: Reviewed (463 from 01/22/22 - most recent EKG on file) IV to PO Switch IV Medications: Reviewed (Zosyn and hydromorphone) Home Meds Home Med List reviewed: Reviewed Relevent Home Meds Not ordered & why?: cetirizine (PRN), Jardiance (has order for SS insulin) and warfarin (on hold due to procedure today, INR yesterday was 2.6) Current Meds Current Medication Order Review: Reviewed Pharmacy Antibiotic Review Relevant Labs: WBC 7.56 10^3/uL (4.4-10.8) 02/24/24 14:21 Temperature 37.0 C Temperature 36.5 C Pharmacy Antibiotic Activity: C/S review and Reviewed, no change Comments: Patient is on Zosyn (4 doses), day 2, for sepsis. Cultures from leg wound are pending.
--- NOTE | 2024-02-25 12:19 | ROE_ITS ---
Date of service: 02/25/24 Time of Service: 12:19 Operative Note Operative Note DATE OF PROCEDURE: 02/25/24 PRE-OP DIAGNOSIS: Left lower extremity wound with necrotizing infection POST-OP DIAGNOSIS: same PROCEDURE: Washout, debridement and application of negative pressure wound therapy to the left lower extremity wound SURGEON: [place] CORPORATE CONSULTANT: Shell Scott Refer to Anesthesia Record ESTIMATED BLOOD LOSS: 25 PATHOLOGY: other (Wound fluid for Gram stain and culture. Wound tissue for Gram stain and culture) COMPLICATIONS: None Patient was transported to: PACU Patient's condition: stable Indications: Sushma is an 83-year-old woman who sustained a contusion type wound to her left lower extremity after standing level fall. It subsequently became infected, and required extensive debridement. She continues to have ongoing tissue loss with some symptoms of sepsis Findings: Necrotic and infected left lower extremity wound Procedure Description: After the induction of anesthesia previous dressings were all removed. Next, I prepped and draped the left lower extremity from the toes to the mid thigh. Superficial measurements of the wound were about 6.5 cm x 5 cm. Skin edge was necrotic, and there was extensive necrotic tissue throughout the edges and the base of the wound. Specimens of the wound fluid were obtained for Gram stain and culture. Additionally, sharp debridement was used to offload the top portion of necrotic tissue. The specimen of this was also sent for Gram stain and culture. Next, using the Versajet set to 3, I debrided the entire wound. I took this back to healthy bleeding tissue and as many areas as possible. Once this was complete, the wound was irrigated using combination of hydrogen peroxide and saline. After debridement, the wound measured 6.75 cm x 5 cm at the skin level. Depth of the wound is approximately 4 cm to the fascia of the anterior and lateral compartments. The wound undermines down towards the foot approximately 5.5 cm, and up towards the knee approximately 4.5 cm. With all of the ischemic and necrotic tissue debrided, I packed the wound with an antimicrobial gauze, and applied a negative pressure Mills and nephew wound VAC according to the manufactures instructions. Patient tolerated the procedure well, was extubated, transferred to the recovery unit.
--- NOTE | 2024-02-25 13:17 | W.ANESPOSTOP ---
Postoperative Evaluation Date, Time and Location Date Performed: 02/25/24 Time Performed: 13:17 Patient Location: Med/Surg Vital Signs Most Recent Imported Vital Signs: Most Recent Vital Signs Temp Pulse Resp BP Pulse Ox 35.9 C L 70 16 160/67 H 96 02/25/24 13:07 02/25/24 13:07 02/25/24 13:07 02/25/24 13:07 02/25/24 13:07 Pain Score Most Recent Pain Score: Most Recent Pain Score Pain Level [general] 0 02/25/24 08:09 Pain Level [Left Leg] 3 02/25/24 12:50 Pain Level 3 02/25/24 13:07 Assessment Mental Status: Awake (Alert & Oriented to Patient Baseline) Airway and Respiratory Function: Patent airway with normal (patient baseline) respiratory exam Cardiovascular Function: Hemodynamically Stable Hydration Status: Adequately Hydrated Nausea & Vomiting: No Nausea or Vomiting Pain: Pain is tolerable per patient Peripheral Nerve Block: Patient did not receive a nerve block
--- NOTE | 2024-02-25 14:17 | CHAPLAIN ---
Sushma was sitting up in bed when I visited. She told me that her pain is better controlled this afternoon. She enjoyed her lunch. She expects her son to visit later today. He was in the ED with her yesterday, and then her with her last night. Sushma asked for help getting her earrings back in and asked to have her ring back on, so I helped her with her earrings. I let the Clinical Coordinator know that her jewelry was back on. I explained my role and offered support.
[2024-02-25] MEDS: Insulin Aspart 300 UNITS/3 ML PEN SC (16:54)
[2024-02-25] MEDS: Atorvastatin 10 MG TAB PO (20:22)
[2024-02-25] MEDS: Zolpidem 5 MG TAB PO (20:22)
[2024-02-26] MEDS: PIPERACILLIN/TAZO 2.25 GM in Normal Saline 50 ML IVPB ×4 (00:25→17:00)
[2024-02-26] MEDS: Lactated Ringers 1,000 ML 50 ML IV (02:24)
[2024-02-26 06:43] LABS: Prothrombin Time 22.8 sec (9.1-11.1)
[2024-02-26 06:49] LABS: INR 2.4 (0.9-1.1)
[2024-02-26 07:33] VITALS: BP 140/43; PULSE 69; RESP 15; TEMP 36.8; O2SAT 92
[2024-02-26] MEDS: Potassium Chloride 10 MEQ TABCR PO (07:40)
[2024-02-26] MEDS: Furosemide 80 MG TAB PO (07:40)
[2024-02-26] MEDS: Cholecalciferol (Vitamin D3) 1,000 UNIT TAB 1000 UNITS PO (07:40)
[2024-02-26] MEDS: Psyllium PKT 1 EACH PO (07:40)
[2024-02-26] MEDS: Atenolol 50 MG TAB PO (07:40)
[2024-02-26] MEDS: Empaglifozin 25 MG TAB PO (07:40)
[2024-02-26] MEDS: Alendronate 70 MG TAB PO (07:40)
[2024-02-26] MEDS: Losartan 50 MG TAB PO (07:40)
[2024-02-26] MEDS: Normal Saline Flush 10 ML SYR IVP ×2 (07:41→20:58)
[2024-02-26] MEDS: Insulin Aspart 300 UNITS/3 ML PEN SC ×3 (07:44→17:00)
[2024-02-26] MEDS: Acetaminophen 325 MG TAB 650 MG PO ×2 (07:52→21:06)
[2024-02-26] MEDS: Budesonide/Formoterol 160/4.5 6 GM 60 PUFF INH IH ×2 (08:07→19:38)
[2024-02-26 08:45] VITALS: RESP 16
[2024-02-26 15:25] VITALS: BP 131/50; PULSE 71; RESP 15; TEMP 36.6; O2SAT 95
--- NOTE | 2024-02-26 15:48 | W.PM.PROGNOT ---
Date of Service Date of service: 02/26/24 Time of Service: 15:49 Assessment and Plan Assessment and plan (1) Abscess of left leg: Status: Acute Assessment and plan: 83-year-old woman with a chronic left lower extremity wound/abscess cavity that has been debrided and cleaned up and now has a wound VAC. Not sure there is any infection going on. Will keep her another night for IV antibiotics, wound VAC therapy and then tomorrow she can receive training/education on how the wound VAC can be used at home. Overall plan: DVT prophylaxis (she is anticoagulated) Wound VAC to suction Hep-Lock IV fluids Subjective Subjective Interval history since last seen: The patient has no complaints at the bedside. She is not having any significant pain. She is hoping to spend the night again tonight. She wants to know what is happening with her wound VAC. Exam Narrative Exam Narrative: Gen: Non-toxic, comfortable and interactive Neuro: Alert and oriented x3 Psych: Good mood and affect. Good insight and understanding into condition. Chest: Non-labored breathing, no wheezing, no visible shortness of breath. Heart: Irregular Left lower extremity: Wound VAC intact. Serosanguineous output. Objective Last Vital Signs Temp 97.9 F 02/26/24 15:25 Pulse 71 02/26/24 15:25 Resp 15 02/26/24 15:25 BP 131/50 L 02/26/24 15:25 Pulse Ox 95 02/26/24 15:25 Laboratory Results - last 24 hr 02/26/24 02/26/24 05:55 Unknown PT 22.8 H Cancelled INR 2.4 H Cancelled Time Spent with Patient Time Spent with Patient: <25 minutes Time was spent: obtaining and/or reviewing separately otained hiistory and counseling the patient
--- NOTE | 2024-02-26 16:38 | NUR.NOTE ---
Pt requesting home health for wound vac management upon discharge. RN notified case management. AP RN Nursing Note:
[2024-02-26] MEDS: Atorvastatin 10 MG TAB PO (20:57)
[2024-02-26] MEDS: Zolpidem 5 MG TAB PO (20:58)
[2024-02-27] MEDS: PIPERACILLIN/TAZO 2.25 GM in Normal Saline 50 ML IVPB ×3 (00:05→11:45)
[2024-02-27 00:13] VITALS: BP 122/50; PULSE 71; RESP 18; TEMP 36.6; O2SAT 95
[2024-02-27] MEDS: Acetaminophen 325 MG TAB 650 MG PO (01:19)
[2024-02-27] MEDS: HYDROmorphone 2 MG/ML SYR 0.5 MG IVP (01:20)
[2024-02-27] MEDS: Normal Saline Flush 10 ML SYR IVP ×5 (01:20→20:40)
[2024-02-27 07:01] LABS: Prothrombin Time 22.8 sec (9.1-11.1)
[2024-02-27 07:05] LABS: INR 2.4 (0.9-1.1)
--- NOTE | 2024-02-27 07:21 | PDOC.CMPRO ---
Date of service: 02/26/24 Time of Service: 14:23 Care Management Progress Note Progress Note Text Progress Note Text: Sushma was sitting up in her chair, her son present and visiting in the room. She reviewed her hospital course and expectation for extended recovery at home. When CM reviewed activity cart items, Sushma requested a word search which was provided, CM continues to follow. Discharge Plan: Anticipate Sushma will be discharged home with wound vac therapy and wound care orders, anticipate HH/RN will be ordered to monitor. She will follow up with her community providers and plan of care and transport with family. CM will follow and continue to assess for discharge needs. SDOH(Care Management) Screening Will the Patient Participate in the Screening?: Yes Do you worry about having a steady place to live?: no Problems where you live: no known problems In the past 12 months, have you had to go without electric, gas, oil or water in your home?: no Have you or anyone in your house had to go without enough food to eat?: no Has lack of transportation kept you from medical appointments or from doing things needed for daily living?: no Has anyone in your support network made you feel unsafe for any reason?: no Anticipated HH Services Anticipated HH Services at Discharge [facility] Needed, RN (Wound vac, wound care) Anticipated Date of Discharge: 02/27/24. Following Provider: Mell Cueto.
--- NOTE | 2024-02-27 07:29 | W.PM.PROGNOT ---
Date of Service Date of service: 02/27/24 Time of Service: 07:29 Assessment and Plan Assessment and plan (1) Non-healing wound of lower extremity: Status: Acute Assessment and plan: The VAC dressing looks great on her leg, and I think we can leave that in place through the week. So far Gram stain is positive on the tissue, and the culture seems to be growing a few organisms. There is no speciation yet. Hopefully we can get the antibiotics off, if not narrowed soon. I will check a C. difficile this morning to make sure she has not developed that infection in the interim. Qualifiers: Encounter type: subsequent encounter Laterality: left Qualified Code(s): S81.802D - Unspecified open wound, left lower leg, subsequent encounter Subjective Subjective Interval history since last seen: Sushma is feeling little bit nauseous this morning, and has had some new diarrhea. Otherwise, her leg is not bothersome. She seems to be tolerating the VAC dressing okay. Exam GI Other: Abdomen is soft and nondistended. She is not tender. She does have bowel sounds. Maybe a little hyperactive Objective Last Vital Signs Temp 97.9 F 02/27/24 00:13 Pulse 71 02/27/24 00:13 Resp 18 02/27/24 00:13 BP 122/50 L 02/27/24 00:13 Pulse Ox 95 02/27/24 00:13 Laboratory Results - last 24 hr 02/27/24 06:00 PT 22.8 H INR 2.4 H Time Spent with Patient Time Spent with Patient: 25-34 minutes Time was spent: preparing to see the patient(eg.review tests), ordering medications,tests, procedures, counseling the patient and care coordination
[2024-02-27 07:54] VITALS: BP 100/63; PULSE 80; RESP 16; TEMP 36.4; O2SAT 97
[2024-02-27] MEDS: Insulin Aspart 300 UNITS/3 ML PEN SC ×3 (08:02→17:01)
[2024-02-27] MEDS: Ondansetron 4 MG/2 ML VIAL IVP (08:06)
[2024-02-27] MEDS: Budesonide/Formoterol 160/4.5 6 GM 60 PUFF INH IH ×2 (08:11→20:47)
[2024-02-27] MEDS: Losartan 50 MG TAB PO (08:43)
[2024-02-27] MEDS: Potassium Chloride 10 MEQ TABCR PO (08:43)
[2024-02-27] MEDS: Psyllium PKT 1 EACH PO (08:43)
[2024-02-27] MEDS: Atenolol 50 MG TAB PO (08:43)
[2024-02-27] MEDS: Furosemide 80 MG TAB PO (08:43)
[2024-02-27] MEDS: Cholecalciferol (Vitamin D3) 1,000 UNIT TAB 1000 UNITS PO (08:43)
[2024-02-27] MEDS: Empaglifozin 25 MG TAB PO (08:44)
--- NOTE | 2024-02-27 09:29 | NUR.NOTE ---
Nursing Note: Assessment reviewed by this nurse
--- NOTE | 2024-02-27 10:31 | PDOC.CMPRO ---
Date of service: 02/27/24 Time of Service: 10:32 Care Management Progress Note Discharge Potential Discharge Needs: Surgical F/U Appt Anticipated Barriers to Discharge: Medical Status Patient/Family Education Needs: Review discharge instructions, discuss Ask Me Three Transportation: Private vehicle Plan: Anticipate Sushma will be discharged home with no new services when medically cleared. She will follow up with her community providers and plan of care and transport with family. CM will follow and continue to assess for discharge needs. SDOH(Care Management) Screening Will the Patient Participate in the Screening?: Yes Do you worry about having a steady place to live?: no Problems where you live: no known problems In the past 12 months, have you had to go without electric, gas, oil or water in your home?: no Have you or anyone in your house had to go without enough food to eat?: no Has lack of transportation kept you from medical appointments or from doing things needed for daily living?: no Has anyone in your support network made you feel unsafe for any reason?: no
[2024-02-27 11:22] VITALS: BP 91/66; PULSE 57; RESP 18; TEMP 36.5; O2SAT 97
--- NOTE | 2024-02-27 13:40 | PDOC.HHF2F ---
Home Health Referral Home Health Orders Clinical synopsis of why skilled professionals are needed: Sushma has a large necrotizing wound to the left lower extremity that has been debrided, and is being treated with negative pressure wound therapy with a [employer] VAC. This is a new dressing for her, and will need reassessment through the weekend Medical diagnosis necessitation home health referral: Necrotizing soft tissue infection Registered Nurse: Check all that apply Assess for exacerbation of medical condition, instruct patient/caregivers on signs and symptoms to report for early detection: Ordered (Ensure that there is no evolving erythema or new tenderness in the left lower extremity) Assess wound for signs and symptoms of infection, instruct on wound care and/or provide skilled wound care consisting of: That he has a new [employer] negative pressure wound therapy system. Please assess the dressing, ensure that everything is working appropriate Home Bound Status Patient has a condition such that leaving home is medically contraindicated (Describe): That he has a new negative pressure wound management system that we will make driving to the office and possible. She has limited support to help with transportation Describe why leaving home would require a considerable and taxing effort: Safety Concerns: describe (She is unable to drive, and the ambulation is limited with the negative pressure wound therapy machine) Encounter Date and Reason: I certify that a FTF encounter for this patient was performed on February 27, 2024 and that such encounter was related to the primary reason the patient requires home health services. The encounter was conducted in the following manner: By me as the certifying physician, HIGH SCHOOL VICE PRINCIPAL, PA or By an inpatient physician, HIGH SCHOOL VICE PRINCIPAL or PA during an inpatient stay who communicated findings to me, Certification And Authentication I certify that I composed the above information based on my clinical judgment relating to this patient's medical condition and, if applicable, clinical findings communicated to me by the NPP or inpatient physician who performed the FTF encounter. Name of Provider that will be monitoring home health services: Man Mills
[2024-02-27 15:33] VITALS: BP 83/65; PULSE 57; RESP 18; TEMP 36.8; O2SAT 98
[2024-02-27 15:42] VITALS: BP 110/62
--- NOTE | 2024-02-27 15:46 | CHAPLAIN ---
Sushma was up in the chair when I visited. Her son was with her. Sushma said she may be discharged today and was looking forward to getting home. She said she doesn't sleep well at home usually, and she didn't sleep here well at all. She acknowledged that she has a long road ahead of me but is ready to be home.
--- NOTE | 2024-02-27 16:53 | PDOC.CMDIS ---
Date of service: 02/27/24 Time of Service: 16:53 LACE Index Scoring Tool Questions: Length of Stay (in days): 3 Was the patient admitted via the E.D.?: Yes Comorbidities: Diabetes w/o Complication and Liver or Renal Disease E.D. Visits: 4 Answers: Total Score: 15 Risk of Readmission: High Risk Care Management Discharge Plan Reason for Hospitalization: cellulitis Discharge Plan: Sushma will be discharged home with home health orders for wound vac therapy and wound care.. She will follow up with her community providers and plan of care and transport with family. Patient/Family Education Needs: Review of discharge instructions, limitations, follow up plan, discuss Ask Me Three Services Needed at Discharge: Home Health Care Services SDOH Health Related Social Needs: No Data to Display
[2024-02-27 20:06] VITALS: BP 107/82; PULSE 81; RESP 18; TEMP 36.4; O2SAT 98
[2024-02-27] MEDS: Warfarin 5 MG TAB PO (20:37)
[2024-02-27] MEDS: Zolpidem 5 MG TAB PO (20:43)
[2024-02-27] MEDS: Atorvastatin 10 MG TAB PO (20:43)
[2024-02-27 21:48] LABS: C Diff PCR Negative (Negative)
[2024-02-28] MEDS: Acetaminophen 325 MG TAB 650 MG PO ×2 (05:43→22:35)
[2024-02-28 07:05] LABS: INR 2.1 (0.9-1.1)
[2024-02-28 07:50] VITALS: BP 94/49; PULSE 70; RESP 18; TEMP 36.3; O2SAT 98
[2024-02-28] MEDS: Budesonide/Formoterol 160/4.5 6 GM 60 PUFF INH IH ×2 (08:37→19:59)
[2024-02-28] MEDS: Psyllium PKT 1 EACH PO (08:58)
[2024-02-28] MEDS: Insulin Aspart 300 UNITS/3 ML PEN SC ×2 (08:58→17:27)
[2024-02-28] MEDS: Furosemide 80 MG TAB PO (08:59)
[2024-02-28] MEDS: Cholecalciferol (Vitamin D3) 1,000 UNIT TAB 1000 UNITS PO (08:59)
[2024-02-28] MEDS: Losartan 50 MG TAB PO (08:59)
[2024-02-28] MEDS: Empaglifozin 25 MG TAB PO (08:59)
[2024-02-28] MEDS: Potassium Chloride 10 MEQ TABCR PO (08:59)
[2024-02-28] MEDS: Atenolol 50 MG TAB PO (08:59)
[2024-02-28] MEDS: Normal Saline Flush 10 ML SYR IVP ×2 (09:59→20:59)
[2024-02-28 10:14] VITALS: RESP 16
--- NOTE | 2024-02-28 10:23 | W.PM.PROGNOT ---
Date of Service Date of service: 02/28/24 Time of Service: 10:23 Assessment and Plan Assessment and plan (1) Abscess of left leg: Status: Acute Assessment and plan: Clinically, Sushma seems to be improving quite a bit. I think she is an excellent candidate for negative pressure wound therapy at home. Unfortunately, her payer has denied that treatment. Unfortunately, that does not leave many options. She cannot afford to pay for negative pressure wound therapy [id number], nor can we send her home with the current inpatient set up that she has in place. Therefore, discharge with the current treatment is not an option. I think removal of this dressing, and reinstitution of other therapies is ill-advised since she failed what I would consider a very aggressive outpatient regimen with near daily office visits for wound care, and even emergency department visits through the weekend for treatment of her wound. I worry that if we go back to that, she will have recrudescence of the infection with progression similar to what she experienced before. Therefore, I think negative pressure wound therapy is clinically indicated. I spoke with the representatives from our [employer] company last night and this morning. No more work can be done with regards to her outpatient application until Friday. Therefore, I do not see any other options besides keeping Sushma here and continuing with her current treatment. I will plan to put her onto the operating room for Friday (as opposed to the planned Friday surgery), to reassess and redress the wound appropriately. In the meantime, I will see if physical therapy can work with her a little bit to help prevent hospital deconditioning. Subjective Subjective Interval history since last seen: Sushma looks very good this morning. She is sitting up in the chair and doing some crossword puzzles. She says her pain is well-controlled. Exam Extrem Other: Her leg is soft, and there is no erythema adjacent to the dressings. VAC is working fine. Objective Last Vital Signs Temp 97.3 F L 02/28/24 07:50 Pulse 70 02/28/24 07:50 Resp 16 02/28/24 10:14 BP 94/49 L 02/28/24 07:50 Pulse Ox 98 02/28/24 07:50 Laboratory Results - last 24 hr 02/27/24 02/28/24 20:50 06:45 PT 20.0 H INR 2.1 H Stl C.difficile Tox PCR Negative Time Spent with Patient Time Spent with Patient: >50 minutes Time was spent: preparing to see the patient(eg.review tests), ordering medications,tests, procedures, referring, communicating with other health healthcare educator, counseling the patient and care coordination
--- NOTE | 2024-02-28 12:00 | IN_ITS ---
PT Notes Visit Reasons: Sepsis Inpatient Physical Therapy Evaluation Date: 02/28/24 Referring Doctor: Dr. Shabazz PT Orders: PT CONSULT: PT eval and treat Precautions: wound vac left ramirez Patient Profile/Admitting Diagnosis: 83-year-old woman with a chronic left lower extremity wound/abscess cavity that has been debrided and now has a wound VAC. Social History/Home Situation: Sushma resides in a private home. Has a 4WW for daily walks, but does not use in the house, where she typically walks independently, or uses cane. Current Functional Limitations: has been ambulating independently in room Equipment Owned/DME: cane, 4WW Subjective: Sushma states that she is starting to feel better. She has been walking in her room to the bathroom on her own. States that she sometimes feels a little wobbly at baseline, but walks daily with her 4WW and is careful. Objective: General Observation: Resting in chair with legs elevated, wound vac to LLE. Mental Status: A&Ox3. Very pleasant and cooperative. Pain: well managed ROM: Right Upper Extremity: WFL Left Upper Extremity: WFL Right Lower Extremity: WFL Left Lower Extremity: WFL Strength: Right Upper Extremity: Shoulder flexion 3/5 or greater. Biceps and triceps 4/5. Left Upper Extremity: Shoulder flexion 3/5 or greater. Biceps and triceps 4/5. Right Lower Extremity: Hip flexion 5/5. Quads 3/5 or greater. Ankle DF 3/5 or greater. Left Lower Extremity: Hip flexion 5/5. Quads 3/5 or greater. Ankle DF 3/5 or greater. Bed Mobility/Transfers: sit-stand: independent stand-sit: independent Gait: Ambulates 100'x2. First trial, utilizes hand support to IV pole. Second trial, utilizes cane in RUE with slow gait, limited foot clearance, SBA only. Minor path deviation. REquires seated rest period due to fatigue between trials. Balance: Static Sitting: normal Dynamic Sitting: normal Static Standing: good Dynamic Standing: fair Special Tests: Mobility Limitations Standardized Measure [facility] AM-PAC 6 clicks Basic Mobility Inpatient Short Form: Raw Score: 22 Standardized Score: 21% impairment Informed Consent/Education: Patient instructed in purpose of PT consult and plan of care. Assessment: Patient is an 83 year old female being managed in acute care for wound care for LLE abcess. Patient presents with impairments in gait, balance and activity tolerance , as demonstrated by the following functional limitations: decreased tolerance to household ambulation, need for AD for ambulation, gait impairments. Patient is assessed as a Low 10219 complexity based on the following: History: as above, with extensive medical history as noted below Examination: functional limitations as noted above Presentation: evolving due to acute medical issues Decision Making: low Goals: Goals X1 week 1. Supine-Sit : independent 2. Sit-Supine : independent 3. Sit-Stand : independent 4. Stand-Sit : independent 5. Bed-Chair : independent 6. Chair-Bed : independent 7. Gait :supervision with cane x 200' Plan of Care/Treatment Plan: 1x/day, 7 days/week x 1 week. Plan of care has been reviewed with the ORDNAN[employer] EQUIPMENT WORKER providing the service under Physical Therapy direction. Initiate Physical Therapy intervention for strengthening, bed mobility, transfers, gait, stairs, balance training, use of assistive device. DISCHARGE RECOMMENDATIONS: Home with services : PT for balance retraining and fall risk reduction TREATMENT CODE/TIME: [id number] ([id number]) Please sign an return this page within 30 days if you agree with the above POC. Thank you! Physician Signature Date [facility] Patricia Sanchez PT, DPT [facility] All Active Problems (Updated 02/27/24 @ 07:30 by Man Mills MD) Abscess of left leg (Acute) Anticoagulated on Coumadin (Acute) Non-healing wound of lower extremity (Acute) Lesion of skin of nose (Acute) Conductive hearing loss in right ear (Acute 02/23/15) Mixed conductive and sensorineural hearing loss of right ear with restricted hearing of left ear (Acute 07/25/16) Sensorineural hearing loss (SNHL) of left ear with restricted hearing of right ear (Acute 07/25/16) Sensorineural hearing loss, bilateral (Acute 02/25/17) Medical History (Updated 02/27/24 @ 07:30 by Man Mills MD) Abscess Bunion Memory deficit Subclinical hypothyroidism Elevated TSH Type 2 diabetes mellitus Hypocalcemia CKD (chronic kidney disease) Tricuspid valve regurgitation Facial skin lesion Hyperlipidemia Asthma CAD (coronary artery disease) A-fib HTN (hypertension) Diabetes mellitus Lactose intolerance Osteoporosis Diverticulitis Allergic rhinitis Hiatal hernia Mitral valve stenosis Insomnia Leg cramps Surgical History Mitral valve replaced History of bladder suspension procedure History of tonsillectomy H/O adenoidectomy
[2024-02-28 15:39] VITALS: BP 91/42; PULSE 71; RESP 18; TEMP 36.5; O2SAT 95
[2024-02-28 19:24] VITALS: BP 84/59; PULSE 70; RESP 17; TEMP 36.6; O2SAT 96
[2024-02-28 19:45] VITALS: BP 102/64; PULSE 68
[2024-02-28] MEDS: Warfarin 5 MG TAB PO (20:58)
[2024-02-28] MEDS: Atorvastatin 10 MG TAB PO (20:59)
[2024-02-28] MEDS: Zolpidem 5 MG TAB PO (20:59)
[2024-02-29 07:24] LABS: INR 1.7 (0.9-1.1); Prothrombin Time 16.7 sec (9.1-11.1)
[2024-02-29] MEDS: Budesonide/Formoterol 160/4.5 6 GM 60 PUFF INH IH ×2 (07:57→20:22)
[2024-02-29 08:12] VITALS: BP 103/77; PULSE 74; RESP 18; TEMP 36.6; O2SAT 97
[2024-02-29] MEDS: Psyllium PKT 1 EACH PO (08:14)
[2024-02-29] MEDS: Insulin Aspart 300 UNITS/3 ML PEN SC ×2 (08:14→11:59)
[2024-02-29] MEDS: Potassium Chloride 10 MEQ TABCR PO (08:15)
[2024-02-29] MEDS: Losartan 50 MG TAB PO (08:15)
[2024-02-29] MEDS: Cholecalciferol (Vitamin D3) 1,000 UNIT TAB 1000 UNITS PO (08:15)
[2024-02-29] MEDS: Furosemide 80 MG TAB PO (08:15)
[2024-02-29] MEDS: Atenolol 50 MG TAB PO (08:15)
--- NOTE | 2024-02-29 10:34 | PT.INTREAT ---
PT Notes Visit Reasons: Sepsis Inpatient Physical Therapy Treatment Note [facility] Date: 02/29/24 SUBJECTIVE: Sushma states that she is looking forward to walking. OBJECTIVE: []? VITALS: ?monitored by nsg. ? BED MOBILITY/TRANSFERS? Supine-sit: I? Sit-supine: I? Sit-stand:I? Stand-sit: I ? Bed-Chair: I ? Chair-bed: I ? ? ? Therapeutic Exercises ([id number]): Direct one-on-one instruction in therapeutic exercises to develop strength, endurance, range of motion and flexibility. ? Exercises ? Ambulation ? Assistive Device: SPC and IV pole ? Weight bearing:full Assist: SBA/S? Distance:? approx 550'? ASSESSMENT:? No LOB or fatigue. Would like to continue walks t/o the day as she doesn't sit well. She is independent with all transfers, and uses restroom on her own. PLAN: continue ambulation for endurance. TREATMENT CODE/TIME: 15 min. [id number]. [id number]
[2024-02-29 15:19] VITALS: BP 112/60; PULSE 68; RESP 18; TEMP 36.3; O2SAT 95
[2024-02-29] MEDS: Acetaminophen 325 MG TAB 650 MG PO (21:47)
[2024-02-29] MEDS: Zolpidem 5 MG TAB PO (21:47)
[2024-02-29] MEDS: Atorvastatin 10 MG TAB PO (21:47)
[2024-02-29] MEDS: Warfarin 5 MG TAB PO (21:48)
[2024-02-29] MEDS: Normal Saline Flush 10 ML SYR IVP (22:26)
[2024-02-29 23:55] VITALS: BP 101/53; PULSE 75; RESP 18; TEMP 36.3; O2SAT 96
[2024-03-01] VITALS (27 sets, daily range): BP systolic 110–167; BP diastolic 44–89; PULSE 46–147; RESP 12–17; TEMP 36.1–36.9; O2SAT 94–100; BMI 26.8
[2024-03-01] MEDS: Normal Saline Flush 10 ML SYR IVP ×2 (05:46→08:37)
[2024-03-01 06:49] LABS: Prothrombin Time 18.8 sec (9.1-11.1)
[2024-03-01] MEDS: Budesonide/Formoterol 160/4.5 6 GM 60 PUFF INH IH (08:02)
[2024-03-01] MEDS: Atenolol 50 MG TAB PO (08:13)
[2024-03-01] MEDS: Furosemide 80 MG TAB PO (08:17)
[2024-03-01] MEDS: Potassium Chloride 10 MEQ TABCR PO (08:18)
[2024-03-01] MEDS: Losartan 50 MG TAB PO (08:18)
[2024-03-01] MEDS: Cholecalciferol (Vitamin D3) 1,000 UNIT TAB 1000 UNITS PO (08:18)
[2024-03-01] MEDS: Acetaminophen 325 MG TAB 650 MG PO ×2 (08:29→12:19)
--- NOTE | 2024-03-01 10:48 | PT.INTREAT ---
PT Notes Visit Reasons: Sepsis Inpatient Physical Therapy Treatment Note [facility] Date: 03/01/24 SUBJECTIVE: Sushma states that she is looking forward to walking. while she is waiting to go to surgery on her wound OBJECTIVE: Pt presents reclined in bed with wound vac in place. ? VITALS: ?monitored by nsg. ? BED MOBILITY/TRANSFERS? Supine-sit: I? Sit-supine: I? Sit-stand:I? Stand-sit: I ? Bed-Chair: I ? Chair-bed: I ? Ambulation ? Assistive Device: SPC and IV pole ? Weight bearing:full Assist: SBA/S? Distance:? approx 600 feet? Stairs: 2 steps with rail and SPC SBA reciprocal pattern up and step to down dynamic stand tasks including : item transport and retrieval with SPC to simulate tasks within home ASSESSMENT:? pt with one episode of LOB cross feet able to regain without assist. Pt reported fatigue at end of session. PLAN: continue ambulation for endurance. TREATMENT CODE/TIME: [id number] 18 mins
--- NOTE | 2024-03-01 11:18 | W.PM.PROGNOT ---
Date of Service Date of service: 02/29/24 Time of Service: 15:00 Assessment and Plan Assessment and plan (1) Non-healing wound of lower extremity: Status: Acute Assessment and plan: Will plan for a washout, and change dressing tomorrow. Hopefully we can find a negative pressure system that will work for Sushma so that we can continue management as an outpatient. Qualifiers: Encounter type: subsequent encounter Laterality: left Qualified Code(s): S81.802D - Unspecified open wound, left lower leg, subsequent encounter Subjective Subjective Interval history since last seen: But he was a little bit subtherapeutic on her warfarin today. An extra dose was given. Otherwise she has been doing great. Drainage from the VAC is a little more bloody today, but the volume is low and not clinically concerning. Exam Extrem Other: Leg is soft and not tender. There is no erythema or crepitus. Objective Last Vital Signs Temp 98.4 F 03/01/24 05:47 Pulse 66 03/01/24 05:47 Resp 16 03/01/24 05:47 BP 128/64 03/01/24 05:47 Pulse Ox 96 03/01/24 05:47 Laboratory Results - last 24 hr 03/01/24 06:00 PT 18.8 H INR 2.0 H Time Spent with Patient Time Spent with Patient: 25-34 minutes Time was spent: preparing to see the patient(eg.review tests), counseling the patient and care coordination
[2024-03-01] MEDS: Insulin Aspart 300 UNITS/3 ML PEN SC (12:18)
--- NOTE | 2024-03-01 12:49 | W.ANESPRE ---
General Info Date of Service Date Performed: 03/01/24 Height: 5 ft 2 in Weight: 66.6 kg Body Mass Index (BMI): 26.8 Surgical Procedure: Operation Date: 02/25/24 09:55 Proposed Procedure Side Surgeon p Leg Wound Washout & Debridement, Wound VAC Left Man Mills MD Actual Procedure Side Surgeon p Leg Wound Washout & Debridement, Wound VAC Left Man Mills MD Pre-Op Diagnosis Post-Op Diagnosis Abscess of left leg Abscess of left leg Operation Date: 03/01/24 13:55 Proposed Procedure Side Surgeon p Wound Washout/Wound VAC Left Man Mills MD Meds Allergies and Home Medications Allergies Allergy/AdvReac Type Severity Reaction Status Date / Time peanut Allergy Severe Anaphylaxis Verified 02/21/24 09:46 Penicillins Allergy Unknown Pt thinks Verified 02/21/24 09:46 she gets a rash aminophylline Allergy unknown Verified 02/21/24 09:46 amiodarone Allergy unknown Verified 02/21/24 09:46 digoxin Allergy unknown Verified 02/21/24 09:46 enalaprilat (From Vasotec) Allergy unknown Verified 02/21/24 09:46 tree and shrub pollen Allergy Itching Verified 02/21/24 09:46 paper tape Allergy Intermediate Skin Rash, Uncoded 02/21/24 09:46 red and sore Home Medication ?Medication ?Instructions ?Recorded albuterol sulfate 90 mcg/actuation 2 puff inhalation QID PRN PRN 09/27/19 aerosol inhaler (ProAir HFA) alendronate 70 mg tablet 70 mg PO DIRECTED 09/27/19 atorvastatin 10 mg tablet (Lipitor) 10 mg PO QPM 09/27/19 cetirizine 10 mg tablet 10 mg PO QAM 09/27/19 cholecalciferol (vitamin D3) 25 1,000 unit PO QAM 09/27/19 mcg (1,000 unit) tablet (Vitamin D3) furosemide 80 mg tablet 80 mg PO QAM 09/27/19 potassium chloride 10 mEq 10 meq PO QAM 09/27/19 tablet,extended release(part/cryst) warfarin 5 mg tablet 2.5 - 5 mg PO DIRECTED PRN 09/27/19 atenolol 50 mg tablet 50 mg PO QAM 11/13/21 empagliflozin 25 mg tablet 25 mg PO DAILY 01/01/24 (Jardiance) cephalexin 500 mg capsule 500 mg PO QID cellulitis 10 days 02/18/24 #40 caps losartan 50 mg tablet 50 mg PO DAILY 02/18/24 Current Visit Medications: Current Medications Generic Name Dose Route Start Last Admin Trade Name Freq PRN Reason Stop Dose Admin Acetaminophen 650 mg 02/24/24 10:20 03/01/24 12:19 Acetaminophen 325 Mg Tab PO 650 mg Q4H PRN PRN Administration Pain Albuterol Sulfate 2 puff 02/24/24 16:00 Albuterol Hfa 8 Gm 60 Puff Inh IH QID PRN PRN Alendronate Sodium 70 mg 02/26/24 07:00 02/26/24 07:40 Alendronate 70 Mg Tab PO 70 mg Th@0700 HERBERT Administration Atenolol 50 mg 02/25/24 08:30 03/01/24 08:13 Atenolol 50 Mg Tab PO 50 mg QAM HERBERT Administration Atorvastatin Calcium 10 mg 02/24/24 20:00 02/29/24 21:47 Atorvastatin 10 Mg Tab PO 10 mg QPM HERBERT Administration Budesonide/Formoterol Fumarate 2 puff 02/24/24 20:00 03/01/24 08:02 Budesonide/Formoterol 160/4.5 6 Gm 60 Puff Inh IH 2 puffs BID HERBERT Administration Cholecalciferol 1,000 units 02/25/24 08:30 03/01/24 08:18 Cholecalciferol (Vitamin D3) 1,000 Unit Tab PO 1,000 units QAM HERBERT Administration Device 1 each 02/24/24 13:00 Inhaler, Assist Device MC DIRECTED HERBERT Dextrose 0 gm 02/24/24 12:10 Glucose Oral Gel 15 Gm/37.5 Gm Tube PO DIRECTED PRN Dextrose/Water 0 gm 02/24/24 12:10 Dextrose 50%-Water 25 Gm/50 Ml Syr IVP DIRECTED PRN Furosemide 80 mg 02/25/24 08:30 03/01/24 08:17 Furosemide 80 Mg Tab PO 80 mg QAM HERBERT Administration Insulin Aspart 0 units 02/24/24 17:00 03/01/24 12:18 Insulin Aspart 300 Units/3 Ml Pen SC 2 unit 0800,1200,1700 HERBERT Administration Protocol Losartan Potassium 50 mg 02/25/24 08:30 03/01/24 08:18 Losartan 50 Mg Tab PO 50 mg DAILY HERBERT Administration Ondansetron HCl 4 mg 02/27/24 07:57 02/27/24 08:06 Ondansetron 4 Mg/2 Ml Vial IVP 4 mg Q6H PRN PRN Administration Potassium Chloride 10 meq 02/25/24 08:30 03/01/24 08:18 Potassium Chloride 10 Meq Tabcr PO 10 meq QAM HERBERT Administration Psyllium Hydrophilic Mucilloid 1 each 02/25/24 08:30 03/01/24 08:37 Psyllium Pkt PO Not Given DAILY HERBERT Sodium Chloride 0 ml 02/24/24 10:20 03/01/24 05:46 Normal Saline Flush 10 Ml Syr IVP 10 ml PRN PRN Administration Sodium Chloride 0 ml 02/24/24 20:00 03/01/24 08:37 Normal Saline Flush 10 Ml Syr IVP 10 ml BID HERBERT Administration Sodium Chloride 0 ml 02/24/24 10:20 Normal Saline 10 Ml Vial IJ DIRECTED PRN Warfarin Sodium 5 mg 02/27/24 20:00 02/29/24 21:48 Warfarin 5 Mg Tab PO 5 mg [email or web address] [facility] Administration Warfarin Sodium 2.5 mg 03/01/24 20:00 Warfarin 2.5 Mg Tab PO [email or web address] [facility] Zolpidem Tartrate 5 mg 02/24/24 20:00 02/29/24 21:47 Zolpidem 5 Mg Tab PO 5 mg HS HERBERT Administration PFSH Active Problems Active Problems: Problem Status Onset Code Abscess of left leg Acute L02.416 Anticoagulated on Coumadin Acute Z79.01 Non-healing wound of lower extremity Acute S81.809A Lesion of skin of nose Acute L98.9 Posterior subcapsular age-related cataract, right eye Resolved H25.041 Cortical cataract of right eye Resolved H26.9 Nuclear sclerotic cataract of right eye Resolved H25.11 Posterior subcapsular age-related cataract of left eye Resolved H25.042 Nuclear sclerotic cataract of left eye Resolved H25.12 Cortical cataract of left eye Resolved H26.9 Conductive hearing loss in right ear Acute 02/23/15 H90.11 Mixed conductive and sensorineural hearing loss of right ear with restricted hearing of left ear Acute 07/25/16 H90.A31 Sensorineural hearing loss (SNHL) of left ear with restricted hearing of right ear Acute 07/25/16 H90.A22 Sensorineural hearing loss, bilateral Acute 02/25/17 H90.3 Medical History Medical History (Updated 02/27/24 @ 07:30 by Man Mills MD) Abscess Bunion Memory deficit Subclinical hypothyroidism Elevated TSH Type 2 diabetes mellitus Hypocalcemia CKD (chronic kidney disease) Tricuspid valve regurgitation Facial skin lesion Hyperlipidemia Asthma CAD (coronary artery disease) A-fib HTN (hypertension) Diabetes mellitus Lactose intolerance Osteoporosis Diverticulitis Allergic rhinitis Hiatal hernia Mitral valve stenosis Insomnia Leg cramps Medical History Comments:: has a CPAP machine but doesnt use it Surgical History Surgical History Mitral valve replaced History of bladder suspension procedure History of tonsillectomy H/O adenoidectomy Tobacco Smoking/Tobacco Use Status: Never Alcohol Alcohol Intake: never Substance Use Substance use: Never Substance use type: does not use Vital Signs and Lab Results Vital Signs Most Recent Vital Signs in EMR: Most Recent Vital Signs Temp Pulse Resp BP Pulse Ox 36.9 C 66 16 128/64 96 03/01/24 05:47 03/01/24 05:47 03/01/24 05:47 03/01/24 05:47 03/01/24 05:47 Point of Care Results Point of Care Results: Finger Stick Blood Glucose 198 03/01/24 12:18 Lab Results 02/24/24 14:21 02/24/24 14:21 Blood Type / Crossmatch: No Data to Display Complete Blood Count: White Blood Count 7.56 10^3/uL (4.4-10.8) 02/24/24 14:21 Red Blood Count 4.90 10^6/uL (3.93-5.22) 02/24/24 14:21 Hemoglobin 13.4 g/dL (11.2-15.7) 02/24/24 14:21 Hematocrit 42.2 % (36.0-46.0) 02/24/24 14:21 Platelet Count 307 10^3/uL (130-400) 02/24/24 14:21 Venous Blood Lactate 1.6 mmol/L (0.6-1.4) H 02/18/24 10:10 Complete Metabolic Panel: Sodium 137 mmol/L (136-145) 02/24/24 14:21 Potassium 3.5 mmol/L (3.5-5.1) 02/24/24 14:21 Chloride 98 mmol/L (98-107) 02/24/24 14:21 Carbon Dioxide 31.3 mmol/L (21.0-32.0) 02/24/24 14:21 BUN 23 mg/dL (7-18) H 02/24/24 14:21 Creatinine 1.1 mg/dL (0.55-1.02) H 02/24/24 14:21 Est GFR (CKD-EPI 2020) 49.55 (mL/min/1.73m2) 02/24/24 14:21 Calcium 9.4 mg/dL (8.5-10.1) 02/24/24 14:21 Albumin 3.7 g/dL (3.4-5.0) 02/18/24 10:10 Glucose 143 mg/dL (74-106) H 02/24/24 14:21 C-Reactive Protein 1.19 mg/dL (<or=0.5) H 02/18/24 10:10 Liver Function Panel: Alanine Aminotransferase (ALT/SGPT) 23 U/L (14-59) 02/18/24 10:10 Aspartate Amino Transf (AST/SGOT) 28 U/L (15-37) 02/18/24 10:10 Coagulation Panel: INR International Normalized Ratio 2.0 (0.9-1.1) H 03/01/24 06:00 Prothrombin Time 18.8 sec (9.1-11.1) H 03/01/24 06:00 Cardiac Panel: No Data to Display Arterial Blood Gas: No Data to Display Venous Blood Gas: No Data to Display Pancreas Panel: No Data to Display Thyroid Panel: No Data to Display Infectious Disease: No Data to Display Blood Cultures: No Data to Display Toxicology Panel: No Data to Display Imaging and Studies Imaging and Studies Study information below may be from another EMR and interpreted by another provider. Please see original notes in EMR for more complete details. EKG Summary: Conclusion Atrial fibrillation...? atrial activity Left anterior fascicular block IVCD LVH with secondary repolarization abnormality...multi-LVH criteria, abnrm ST-T 01/22/22 Echocardiogram Summary: Conclusion Left ventricle is normal in size. Systolic function is borderline. EF is 50 to 55%. There are no segmental wall motion abnormalities The right ventricle appears normal in size and systolic function Both atria are moderately enlarged The aortic valve is calcified with trace regurgitation There is a mechanical mitral valve prosthesis. There is trace to mild mitral regurgitation The tricuspid valve is structurally normal with moderate to severe regurgitation. Estimated right ventricular systolic pressure is 44 mmHg 11/16/21 Anesthesia Assessment and Plan Anesthesia History Personal History: No History of Anesthesia Complications Family History: No Family History of Anesthesia Complications Exercise Tolerance Exercise Tolerance: Metabolic Equivalents<4 Pertinent Negatives Pertinent Negatives: No Symptoms of GERD Cardiac & Pulmonary Exam Cardiac Exam: Heart Murmur Present (Mechanical valve / loud sytolic murmur) Pulmonary Exam: Clear Bilateral Breath Sounds Implantable Cardiac Device Does patient have a Pacemaker or an ICD?: No Airway Exam Known Difficult Airway: No Mallampati Class: 2 Mouth Opening: Normal (> 3cm) Thyromental Distance: Greater than 3 cm Neck Range of Motion: Full ROM Neck Circumference: Normal Teeth Condition: Removable Dentures/Plates Upper ASA Classification ASA Score: ASA 3 Emergency Case?: No NPO Status NPO Status: NPO Clears >2 hours, Solids >8 hours Anesthesia Plan Resuscitation Status: Full Code Anesthesia Technique: General Anesthesia Airway Planned: Natural Airway Monitors Used: Standard Monitors
[2024-03-01] MEDS: Lactated Ringers 1,000 ML 30 ML IV (14:28)
--- NOTE | 2024-03-01 14:33 | PDOC.CMPRO ---
Date of service: 03/01/24 Time of Service: 14:34 Care Management Progress Note Progress Note Text Progress Note Text: Sushma was sitting up in a chair when CM met with her. She was pleasant, as usual, and engaged easily with CM. Sushma was supposed to be discharged home with a home wound vac on Friday, however her insurance would not cover the cost of the equipment. Sushma is scheduled to go to the OR this afternoon for another debridement. If the wound vac situation is resolved, she may go home later tonight.. If it is not rssolved, it is not clear what her discharge plan will look like or when it will happen. Judy informed CM that she feels good but is a little tired as she was able to ambulate twice this morning with her walker. Discharge Potential Discharge Needs: PCP F/U Appt and Surgical F/U Appt Anticipated Barriers to Discharge: Treatment delay (inability to get authorization for home wound vac) Patient/Family Education Needs: Review discharge instructions, discuss Ask Me Three Transportation: Private vehicle Plan: Anticipate Sushma will be discharged home with wound vac therapy. She will have new home health orders for nursing to assist with wound care. She will follow up with her community providers and plan of care and transport with family. CM will follow and continue to assess for discharge needs. SDOH(Care Management) Screening Will the Patient Participate in the Screening?: Yes Do you worry about having a steady place to live?: no Problems where you live: no known problems In the past 12 months, have you had to go without electric, gas, oil or water in your home?: no Have you or anyone in your house had to go without enough food to eat?: no Has lack of transportation kept you from medical appointments or from doing things needed for daily living?: no Has anyone in your support network made you feel unsafe for any reason?: no
[2024-03-01] MEDS: ACETAMINOPHEN 1,000 MG/100 ML BTL 400 MG IVPB (15:13)
--- NOTE | 2024-03-01 15:18 | ROE_ITS ---
Date of service: 03/01/24 Time of Service: 15:18 Operative Note Operative Note DATE OF PROCEDURE: 02/25/24 PRE-OP DIAGNOSIS: Chronic wound of the left lower extremity secondary to trauma POST-OP DIAGNOSIS: same PROCEDURE: Washout, debridement and application of negative pressure wound therapy to the left lower extremity wound SURGEON: Man Mills ANESTHESIA TYPE: General:No Airway Refer to Anesthesia Record ESTIMATED BLOOD LOSS: 10 PATHOLOGY: none sent COMPLICATIONS: None Patient was transported to: PACU Patient's condition: stable Implants: Mills and nephew black sponge with anderson negative pressure system to dress Indications: Sushma is an 83-year-old woman who sustained a traumatic injury to her left lower extremity. Despite outpatient management, this ultimately became infected and required fairly extensive debridement. Most recently, she has been managed with a Mills [employer] Nephew negative pressure wound therapy device and seems to be responding favorably. Findings: Granulation tissue forming along the bed of the wound, small areas of fat necrosis. Wound measuring 6.5 x 4 cm at the skin level to a depth of 2 cm, with undermining towards the foot about 4 cm and towards the knee about 2 cm Procedure Description: Sushma was brought back to the operating room, and moved onto the OR table. Next, general anesthesia was established for the natural airway. I then removed the previously placed negative pressure wound management system including the antimicrobial gauze. The left lower extremity was then prepped and draped in the usual fashion. I started with a gentle exploration of the wound. There is significant improvement of granulation tissue covering approximately 80% of the bed of the wound. There is a little bit of fibrinous exudate along the skin margin, and some fat necrosis, particularly along the posterior lateral aspect of the skin incision. Next, using a Versajet debridement system, set to a power level of 2, I debrided away all nonviable tissue. I tried my best to take this back to healthy bleeding tissue, however, the patient is therapeutically anticoagulated for her heart valve, so great care was taken to ensure no significant bleeding. There was a small focus of fat necrosis that required sharp debridement using scissors. Once the entirety of the wound was cleaned with the Versajet, it was irrigated. It appeared hemostatic. Next, using the b lack sponge from the Mills [employer] Nephew kit, I tailored this to fit the wound which measures approximately 6-1/2 x 4 cm at the skin level. It extends about 2 cm deep to the muscular fascia at the base of the wound, and undermines approximately 4 cm towards the foot and 2 cm towards the knee. Once the sponge was appropriately seated, the external portions of a anderson negative pressure wound system were applied. The device was initiated, and there was appropriate suction across the wound bed. That he was then allowed awaken from the anesthetic and transferred to the recovery unit.
--- NOTE | 2024-03-01 15:25 | DSE_ITS ---
Date of service: 03/01/24 Time of Service: 15:25 DS: Diagnosis Discharge Diagnosis (1) Non-healing wound of lower extremity: Status: Acute Discharge Plan Disposition Patient Disposition: Home W/Home Health Services Condition: Good Discharge Details Reason For Visit: Sepsis Admit Date/Time: 02/24/24 10:25 Admit Provider: Man Mills Attending Provider: Man Mills Primary Care Provider: Mell Cueto [facility] Hospital Course: Sushma is a 83 years old. 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 She had undergone several weeks of outpatient treatment, but the wound subsequently became infected and required extensive debridement. She was admitted to the hospital last week with some signs and symptoms of sepsis. She was brought to the operating room and underwent further debridement of some necrotic soft tissue. Culture data was polymicrobial, without a specific focus of infection. Antibiotics were discontinued, and she seemed to do well with negative pressure wound therapy. Unfortunately, the application for outpatient negative pressure wound therapy was denied. Therefore, I brought her back to the operating room today for removal of the previously placed device, and transition to device that would be able to get her home. The wound was debrided once again, and negative pressure therapy was reapplied. She was discharged home with outpatient office follow-up next week Home Meds and New Rx's Prescriptions: Continued atenolol 50 mg tablet 50 mg PO QAM Patient Comments: QPM per pt Jardiance 25 mg tablet 25 mg PO DAILY albuterol sulfate [ProAir HFA] 90 mcg/actuation Hfa Aerosol Inhaler 2 puff inhalation QID PRN PRN furosemide 80 mg tablet 80 mg PO QAM Patient Comments: TK 1 T PO QD cetirizine 10 mg tablet 10 mg PO QAM Patient Comments: TK 1 T PO D PRN cholecalciferol (vitamin D3) [Vitamin D3] 25 mcg (1,000 unit) tablet 1,000 unit PO QAM Patient Comments: TAKE 1 TABLET BY MOUTH ONCE DAILY atorvastatin [Lipitor] 10 mg Tablet 10 mg PO QPM potassium chloride 10 mEq tablet,ER particles/crystals 10 meq PO QAM Patient Comments: TK 1 T PO QD warfarin 5 mg tablet 2.5 - 5 mg PO DIRECTED PRN Patient Comments: TK 1 T PO D UTD Rx Instructions: 2.5 M/Th - 5 all other days alendronate 70 mg tablet 70 mg PO DIRECTED Patient Comments: TK 1 T PO WEEKLY ON AN EMPTY STOMACH WITH BIG GLASS OF WATER DONT LIE DOWN FOR AN HOUR Rx Instructions: weekly losartan 50 mg tablet 50 mg PO DAILY Patient Comments: TAKE ONE TABLET BY MOUTH EVERY DAY Discontinued cephalexin 500 mg capsule 500 mg PO QID 10 Days Qty: 40 0RF Discharge Instructions Additional Instructions: Sushma, it was very nice meeting you last week, and am sorry that you find yourself dealing with this wound. I am very happy with the improvement that we have made since your last trip to the operating room, and I am optimistic that with the debridements we performed, this will help kick start some healing. Certainly, today it looks much better compared to previously. As I mentioned before your procedure today, I used a combination of a special sponge down on the deep tissue, with a anderson type dressing that you had before on the top. Will plan to leave this until next week. In the interim, my office is working on a few other options to see some other devices that might be available to us. As you may recall from your last dressing, as long as the little green light is blinking on the dressing, everything is working fine. If you notice that the light stops blinking, or alternates between green and reddish-orange, then please let the office know right away. You can bathe with this dressing. To do that, simply hold down the power button until the light stops blinking green, then disconnect the screw together tubing. After you are done bathing, reconnect the tubing, then turned the machine back on. It may blink a combination of green and orange for just a few moments as it reestablishes suction, but then should go back to steady blinking green. Again, if you have any trouble with this, please let me know. I would like to try to hold off on any antibiotics for now, but if you show any signs of infection in the days to, we can always add them back if needed. I have taken the liberty of scheduling a follow-up appointment with our office. It will be with Dr. Foster on the at 1:15 PM. If anything changes in the meantime, we can certainly be in touch. If you have any questions at all, please do not hesitate to call us. Stand Alone Forms: Nursing Discharge Form Referrals: Mell Cueto MD [Primary Care Provider] - Latricia Foster DO [OSTEOPATHIC DOCTOR] - (March 08 at 1:15 PM) Activity:: Activity as Tolerated Equipment/Supplies:: No Equipment Needed Diet:: As Tolerated DS: Summary Time Spent with Patient providing and/or coordinating discharge services: Less than 30 minutes Status at Discharge Functional status at discharge: independent ambulation Overall status at discharge: patient is progressing back to baseline Mental Status: mental status grossly normal Speech and Movement: speech and movement normal Mood: congruent mood Affect: normal affect Quality:SDOH Health Related Social Needs: No Data to Display Exam Extrem Other: Left lower extremity shows signs of healing with granulation tissue along the base of the wound. Psych Mental Status: mental status grossly normal Speech and Movement: speech and movement normal Mood: congruent mood Affect: normal affect DS: Data Vitals/I&O Vitals and I&O: Vital Signs Temperature 97.0 F L 03/01/24 15:06 Temperature Source Temporal Artery Scan 03/01/24 05:47 Pulse 50 L 03/01/24 15:11 Pulse Rhythm Irregular 02/24/24 11:25 Pulse 51 L 03/01/24 15:15 Respiratory Rate 16 03/01/24 15:15 Respiratory Effort Normal, Non-Labored 02/24/24 11:25 Respiratory Depth Normal 02/24/24 11:25 Respiratory Pattern Normal 02/24/24 11:25 Blood Pressure 110/89 03/01/24 15:11 Blood Pressure Mean 92 03/01/24 15:11 Pulse Oximetry 98 03/01/24 15:15 Respiratory End-tidal CO2 33 02/25/24 12:36 Oxygen Delivery Method Room Air 03/01/24 15:06 Oxygen Flow Rate 0 03/01/24 05:47 Pain Level 5 03/01/24 15:06 Comment RN Notified 02/29/24 23:55 Intake & Output 02/29/24 03/01/24 03/01/24 23:59 11:59 23:59 Intake Total 640 / 1040 200 / 210 Balance 640 / 1040 200 / 210 Weight 146 lb 13.246 oz Intake: IV 200 / 210 Oral 640 / 1040 Other: Urine Color Yellow Yellow Urine Appearance Clear Comment voids independently voided x1 Emesis Description None Voiding Methods Toilet Toilet Data Completed and Pending Labs on day of discharge: Labs from last 24 hours 03/01/24 06:00 PT 18.8 H INR 2.0 H Preliminary micro results at discharge 02/25/24 12:04 Surgical Culture - Preliminary Leg - Left Lower Gram Positive Alisson,Mixed Acinetobacter baumanii Complex 02/25/24 11:38 Surgical Culture - Preliminary Leg - Left Lower Acinetobacter baumanii Complex Gram Positive Alisson,Mixed 02/25/24 12:04 Anaerobic Culture - Preliminary Leg - Left Lower 02/25/24 12:04 Anaerobic Culture - Preliminary Leg - Left Lower PFSH All Active Problems (Updated 02/27/24 @ 07:30 by Man Mills MD) Abscess of left leg (Acute) Anticoagulated on Coumadin (Acute) Non-healing wound of lower extremity (Acute) Lesion of skin of nose (Acute) Conductive hearing loss in right ear (Acute 02/23/15) Mixed conductive and sensorineural hearing loss of right ear with restricted hearing of left ear (Acute 07/25/16) Sensorineural hearing loss (SNHL) of left ear with restricted hearing of right ear (Acute 07/25/16) Sensorineural hearing loss, bilateral (Acute 02/25/17) Medical History (Updated 02/27/24 @ 07:30 by Man Mills MD) Abscess Bunion Memory deficit Subclinical hypothyroidism Elevated TSH Type 2 diabetes mellitus Hypocalcemia CKD (chronic kidney disease) Tricuspid valve regurgitation Facial skin lesion Hyperlipidemia Asthma CAD (coronary artery disease) A-fib HTN (hypertension) Diabetes mellitus Lactose intolerance Osteoporosis Diverticulitis Allergic rhinitis Hiatal hernia Mitral valve stenosis Insomnia Leg cramps Surgical History Mitral valve replaced History of bladder suspension procedure History of tonsillectomy H/O adenoidectomy Family History Father , d. 60 Throat cancer Mother , d. 80 Heart disease Social History Smoking/Tobacco Use Status: Never Smoking risk assessment performed?: Yes Alcohol Intake: never Drug use: Never Substance use type: does not use Household members: none Housing: other Number of Children: 4 Do you feel safe at home: Yes Do you feel safe in your relationship?: Yes Additional Social history: son lives nearby Time Spent with Patient Time Spent with Patient: <45 minutes Time was spent: preparing to see the patient(eg.review tests), ordering medications,tests, procedures, referring, communicating with other health prompt care rn, counseling the patient and care coordination
--- NOTE | 2024-03-01 15:26 | W.ANESPOSTOP ---
Postoperative Evaluation Date, Time and Location Date Performed: 03/01/24 Time Performed: 15:26 Patient Location: PACU Vital Signs Most Recent Imported Vital Signs: Most Recent Vital Signs Temp Pulse Resp BP Pulse Ox 36.1 C L 50 L 16 110/89 98 03/01/24 15:10 03/01/24 15:11 03/01/24 15:15 03/01/24 15:11 03/01/24 15:15 Most Recent Vital Signs Temp Pulse Resp BP Pulse Ox 35.9 C L 70 16 160/67 H 96 02/25/24 13:07 02/25/24 13:07 02/25/24 13:07 02/25/24 13:07 02/25/24 13:07 Pain Score Most Recent Pain Score: Most Recent Pain Score Pain Level [general] 0 02/29/24 15:00 Pain Level [Left Leg] 1 02/29/24 15:00 Pain Level 5 03/01/24 15:10 Assessment Mental Status: Awake (Alert & Oriented to Patient Baseline) Airway and Respiratory Function: Patent airway with normal (patient baseline) respiratory exam Cardiovascular Function: Hemodynamically Stable Hydration Status: Adequately Hydrated Nausea & Vomiting: No Nausea or Vomiting Pain: Pain is Moderate or Severe Postoperative Pain Management: Pain being addressed with medication and Ongoing pain, patient will be managed as an inpatient Peripheral Nerve Block: Patient did not receive a nerve block Postoperative Comments:: Discussed with LICENSED STAFF MFT to include in report: no additional tylenol for the day
--- NOTE | 2024-03-01 15:32 | PDOC.HHF2F ---
Home Health Referral Home Health Orders Clinical synopsis of why skilled professionals are needed: That he has a large wound on the left lower extremity that required operative debridement and dressings. She now has a anderson negative pressure wound management system in place. Medical diagnosis necessitation home health referral: Traumatic soft tissue injury with chronic wound of the left lower extremity making ambulation challenging Registered Nurse: Check all that apply Assess for exacerbation of medical condition, instruct patient/caregivers on signs and symptoms to report for early detection: Ordered (Ensure that there is no evolving erythema or new tenderness in the left lower extremity) Assess wound for signs and symptoms of infection, instruct on wound care and/or provide skilled wound care consisting of: Assess anderson negative pressure wound management system and ensure it is operating correctly Home Bound Status Patient has a condition such that leaving home is medically contraindicated (Describe): That he has a new negative pressure wound management system that we will make driving to the office and possible. She has limited support to help with transportation Encounter Date and Reason: I certify that a FTF encounter for this patient was performed on March 01, 2024 and that such encounter was related to the primary reason the patient requires home health services. The encounter was conducted in the following manner: By me as the certifying physician, BALLING MACHINE OPERATOR, PA or By an inpatient physician, BALLING MACHINE OPERATOR or PA during an inpatient stay who communicated findings to me, Certification And Authentication I certify that I composed the above information based on my clinical judgment relating to this patient's medical condition and, if applicable, clinical findings communicated to me by the NPP or inpatient physician who performed the FTF encounter. Name of Provider that will be monitoring home health services: [place]
[2024-03-01] MEDS: fentaNYL 100 MCG/2 ML VIAL IVP ×2 (15:33→15:44)
== END 2024-03-01 17:50 | disposition home health service (06) ==
PROVIDERS: Admitting Provider Surgery; PCP Family Medicine; Visit Provider Surgery
PROC: (CPT 11042; principal; 2024-02-25 09:45)
DX: S81.802A Unspecified open wound, left lower leg, initial encounter (principal); H90.3 Sensorineural hearing loss, bilateral; Z79.899 Other long term (current) drug therapy; R41.3 Other amnesia; E03.9 Hypothyroidism, unspecified; E11.22 Type 2 diabetes mellitus with diabetic chronic kidney disease; N18.9 Chronic kidney disease, unspecified; I07.1 Rheumatic tricuspid insufficiency; E78.5 Hyperlipidemia, unspecified; J45.909 Unspecified asthma, uncomplicated; I25.10 Atherosclerotic heart disease of native coronary artery without angina pectoris; I48.91 Unspecified atrial fibrillation; I12.9 Hypertensive chronic kidney disease with stage 1 through stage 4 chronic kidney disease, or unspecified chronic kidney disease; M81.0 Age-related osteoporosis without current pathological fracture; G47.00 Insomnia, unspecified; K44.9 Diaphragmatic hernia without obstruction or gangrene; Z95.4 Presence of other heart-valve replacement; Z79.01 Long term (current) use of anticoagulants; E73.9 Lactose intolerance, unspecified; R11.0 Nausea; R19.7 Diarrhea, unspecified
CPT/HCPCS: 11042 ×2; 97605 ×2; 11045 ×2; 36415; 80048; 87077; 87493; 94640; 96365; 96366; 96375; 97110; 97161; 97530; 99222; 99231; 99232; 99233; 99239; 73720; 85025; 85610; 87070; 87075; 87186; 87205; 94664; G0378; J0131; J1100; J1170; J1815; J2371; J2405; J2543; J2704; J3010; J3490

== ENCOUNTER → 2024-03-04 10:52 | Outpatient (BNVA) | payer OTHER, MEDICAID, SELFPAY | PROVIDERS: PCP Family Medicine; Referring Provider Family Medicine; Visit Provider Physical Therapy Assistant | DX: S81.802D Unspecified open wound, left lower leg, subsequent encounter (principal); X58.XXXD Exposure to other specified factors, subsequent encounter | CPT/HCPCS: 97605; 99213 ==

== ENCOUNTER → 2024-03-11 12:50 | Outpatient (BNVA) | payer OTHER, MEDICAID, SELFPAY | PROVIDERS: PCP Family Medicine; Referring Provider Family Medicine; Visit Provider Surgery | DX: S81.802D Unspecified open wound, left lower leg, subsequent encounter (principal); X58.XXXD Exposure to other specified factors, subsequent encounter; Z79.01 Long term (current) use of anticoagulants; I10 Essential (primary) hypertension; E11.9 Type 2 diabetes mellitus without complications | CPT/HCPCS: 11043 ==

== ENCOUNTER 2024-03-18 11:58 | Outpatient (CLI) | payer OTHER, MEDICAID, SELFPAY ==
[2024-03-18 12:21] LABS: Prothrombin Time 35.3 sec (9.1-11.1)
== END 2024-03-18 11:59 | disposition home or self-care (01) ==
LOC: LBO 12:01
PROVIDERS: PCP Family Medicine; Visit Provider Family Medicine
DX: I48.91 Unspecified atrial fibrillation (principal); L98.9 Disorder of the skin and subcutaneous tissue, unspecified; H90.A31 Mixed conductive and sensorineural hearing loss, unilateral, right ear with restricted hearing on the contralateral side; H90.A22 Sensorineural hearing loss, unilateral, left ear, with restricted hearing on the contralateral side
CPT/HCPCS: 36415; 85610

== ENCOUNTER 2024-03-24 22:14 | Emergency (ER) | payer OTHER, MEDICAID, SELFPAY ==
[2024-03-24] VITALS (66 sets, daily range): BP systolic 57–126; BP diastolic 24–52; PULSE 62–119; RESP 12–24; TEMP 35.9–36.6; O2SAT 95–100
--- NOTE | 2024-03-24 22:15 | RT.EKG_ITS ---
APPROVED REPORT Exam: Resting ECG Reason for Exam: dizzy, weakness Patient Location: E HR:95 bpm ECG Measurements Heart Rate 95 AXIS CA [id number] P [id number] QRSd 118 QRS -40 QT 391 T 149 QTc 493 Conclusion Atrial fibrillation...? atrial activity Ventricular premature complex...V complex w/ short R-R interval Incomplete left bundle branch block...QRSd>110mS, terminal axis(-90,-1) LVH with secondary repolarization abnormality...multi-LVH criteria, abnrm ST-T no ST segment or T wave abnormalities to suggest occlusive PA
[2024-03-24] MEDS: Normal Saline 1,000 ML 1000 ML IV ×2 (22:30→23:33)
--- NOTE | 2024-03-24 22:43 | ED.GENADUL_ITS ---
Discharge Plan Disposition Patient Disposition: Transfer-Acute Inpatient Care Specific Acute Inpt Facility: [facility] Condition: Critical Discharge Details Clinical Impression: Acute GI bleeding, Shock, Coagulopathy Primary Care Provider: Mell Cueto ED Provider: Angie Stout Home Meds and New Rx's Prescriptions: No Action atenolol 50 mg tablet 50 mg PO QAM Patient Comments: QPM per pt Jardiance 25 mg tablet 25 mg PO DAILY albuterol sulfate [ProAir HFA] 90 mcg/actuation Hfa Aerosol Inhaler 2 puff inhalation QID PRN PRN furosemide 80 mg tablet 80 mg PO QAM Patient Comments: TK 1 T PO QD cetirizine 10 mg tablet 10 mg PO QAM Patient Comments: TK 1 T PO D PRN cholecalciferol (vitamin D3) [Vitamin D3] 25 mcg (1,000 unit) tablet 1,000 unit PO QAM Patient Comments: TAKE 1 TABLET BY MOUTH ONCE DAILY atorvastatin [Lipitor] 10 mg Tablet 10 mg PO QPM potassium chloride 10 mEq tablet,ER particles/crystals 10 meq PO QAM Patient Comments: TK 1 T PO QD warfarin 5 mg tablet 2.5 - 5 mg PO DIRECTED PRN Patient Comments: TK 1 T PO D UTD Rx Instructions: 2.5 M/Th - 5 all other days alendronate 70 mg tablet 70 mg PO DIRECTED Patient Comments: TK 1 T PO WEEKLY ON AN EMPTY STOMACH WITH BIG GLASS OF WATER DONT LIE DOWN FOR AN HOUR Rx Instructions: weekly losartan 50 mg tablet 50 mg PO DAILY Patient Comments: TAKE ONE TABLET BY MOUTH EVERY DAY HPI General Mode of arrival: EMS . Date/Time Provider Initiated Documentation: 03/24/24 22:16 . Limitations to Documentation: no limitations . Information obtained by: patient and old records reviewed . HPI Narrative: 83yo F with hx afib, CAD, HTN, CKD, T2DM, presenting for profuse diarrhea. Frequent 'too many to count' episodes of liquid stool starting this morning, multiple times an hour. Feels week overall. No abdominal pain or cramping. No chest pain, back pain, shortness of breath, or lightheadedness. No syncope. No focal weakness or numbness. Left thigh abscess with wound vac in place, no increase in pain, has had multiple rounds of antibiotics for this not sure when most recently. Surgery clinic visit note 03/11/24 reviewed, wound healing well at that time. Patient denies increased pain or swelling at wound site. Otherwise in her usual state of health with no fevers, chills, rash, nausea, vomiting, dysuria, hematuria, or other concerns. Related Data Home Medications ?Medication ?Instructions ?Recorded ?Confirmed albuterol sulfate 90 mcg/actuation 2 puff inhalation QID PRN PRN 09/27/19 03/24/24 aerosol inhaler (ProAir HFA) alendronate 70 mg tablet 70 mg PO DIRECTED 09/27/19 03/24/24 atorvastatin 10 mg tablet (Lipitor) 10 mg PO QPM 09/27/19 03/24/24 cetirizine 10 mg tablet 10 mg PO QAM 09/27/19 03/24/24 cholecalciferol (vitamin D3) 25 1,000 unit PO QAM 09/27/19 03/24/24 mcg (1,000 unit) tablet (Vitamin D3) furosemide 80 mg tablet 80 mg PO QAM 09/27/19 03/24/24 potassium chloride 10 mEq 10 meq PO QAM 09/27/19 03/24/24 tablet,extended release(part/cryst) warfarin 5 mg tablet 2.5 - 5 mg PO DIRECTED PRN 09/27/19 03/24/24 atenolol 50 mg tablet 50 mg PO QAM 11/13/21 03/24/24 empagliflozin 25 mg tablet 25 mg PO DAILY 01/01/24 03/24/24 (Jardiance) losartan 50 mg tablet 50 mg PO DAILY 02/18/24 03/24/24 Allergies Allergy/AdvReac Type Severity Reaction Status Date / Time peanut Allergy Severe Anaphylaxis Verified 03/24/24 22:29 Penicillins Allergy Unknown Pt thinks Verified 03/24/24 22:29 she gets a rash aminophylline Allergy unknown Verified 03/24/24 22:29 amiodarone Allergy unknown Verified 03/24/24 22:29 digoxin Allergy unknown Verified 03/24/24 22:29 enalaprilat (From Vasotec) Allergy unknown Verified 03/24/24 22:29 tree and shrub pollen Allergy Itching Verified 03/24/24 22:29 paper tape Allergy Intermediate Skin Rash, Uncoded 03/24/24 22:29 red and sore General Stated Complaint: GI Bleed SANDRA: 2 Review of Systems Narrative: see HPI Exam Narrative Exam Narrative: General: Alert, well appearing, well nourished, in no acute distress. Head: Normocephalic, atraumatic Neck: Trachea midline, ?Neck supple. ENT: ?Dry MM.? No oropharygeal lesions or exudate. Cardiac: ?Irregular, no murmurs appreciated Resp: No respiratory distress. CTAB. Abd: ?Soft, non-distended, nontender : ?No suprapubic tenderness. No CVA tenderness. Extremities: ?No deformities.? No peripheral edema. Wound vac in place to left leg, somewhat warm surrounding, no erythema, no pain with palpation. Neurologic: GCS 15. ? Moves all extremities freely against gravity Course Vital Signs Vital signs: Vital Signs Temperature 36.6 C 03/24/24 22:29 Pulse 97 H 03/24/24 22:29 Respiratory Rate 16 03/24/24 22:29 Blood Pressure 78/42 L 03/24/24 22:29 Pulse Oximetry 98 03/24/24 22:29 Temperature 36.6 C 03/24/24 22:29 Temperature Source Temporal Artery Scan 03/24/24 22:29 Pulse 97 H 03/24/24 22:29 Respiratory Rate 16 03/24/24 22:29 Respiratory Effort Normal, Non-Labored 03/24/24 22:29 Blood Pressure 78/42 L 03/24/24 22:29 Pulse Oximetry 98 03/24/24 22:29 Oxygen Delivery Method Room Air 03/24/24 22:29 Oxygen Flow Rate 0 03/24/24 22:29 Pain Level 0 03/24/24 22:29 Medical Decision Making 83yo F with hx afib, CAD, HTN, CKD, T2DM, presenting for profuse diarrhea. Frequent 'too many to count' episodes of liquid stool starting this morning, multiple times an hour. Left thigh with wound vac in place, no increase in pain, has had multiple rounds of antibiotics for this not sure when most recently. Afebrile, hypotensive on arrival 70's/40's, alert and mentating well, abdomen nontender and no abdominal pain. EKG on arrival afib, no ST segment or T wave abnormalities to suggest occlusive mI. Broad differential in this 83yo F including but not limited to c-diff colitis, acute coronary syndromes, GI bleed. Unlikely mesenteric ischemia given lack of pain. Less likely sepsis 2/t skin infection; does not meet SIRS criteria. Will treat empirically for c-diff with PO vancomycin while awaiting workup, give 2L IVFB for hypotension/volume depletion. Discussed goals of care with patient; she states DNR, would like trial of intubation and agrees to invasive measures and ICU level care. Labs reviewed as below, CBC with mildly elevated WBC at 12 (nonspecific) and hg of 8.7 significantly decreased from most recent prior (13.4 on 02/24/24) concerning for GI bleed- type and cross sent, CMP with Cr of 1.5 (up from 1.1 on most recent prior at [facility]), lactate moderately elevated at 2.8 (will repeat after bolus), procal negative (reassuring against sepsis), troponin normal, TSH elevated with normal T4, INR severely elevated at 7.7. UA ordered. -Vit K and PCC ordered as well as 80mg IV protonix. On reassessment pt's BP improving with fluid resus, MAP >65. No further episodes of diarrhea here. Will repeat CBC after IVFB with consideration for transfusion at that point if <7.0, or transfuse now if BP drops again or pt has another large episode of diarrhea. Repeat CBC with hb 7.0; transfused 1U PRBCs. Repeat lactate normalized at 1.3. MAP remains >65. CT abd pelvis independently reviewed; no obstruction or free fluid on my view, radiology read below with no acute process. Discussed with [facility] GI Dr. Lynch; advised upper EGD in the am, no indication for emergent scope and no capacity at [facility] for transfer. On reassessment pt reports feeling 'a lot better'. Manual cuff consistently with MAP ~10 greater than automatic cuff readings however pt now with MAP persi stently 50-60 on manual readings . Will transfuse 2nd U PRBC. Regrettably no ICU beds available at [facility], discussed with [facility] hospitalist and we agree not appropriate for floor. Discussed with [facility]; accepted to ICU under Dr. Recinos. Awaiting bed assignment, will continue transfusion with consideration for starting norepi should BP remain borderline prior to transport. Attempting to arrange transport patient; [facility] refusing as pt not STEMI/stroke/emergent; I advised the service that this patient is unstable and needs emergent transfer however again refused, state they will be able to take after their shift change at 0700. Reaching out to other services. If unable to identify other service, plan for transport via [facility] after 0700. Pt continues with MAP low 60's; will continue transfusion, start levophed. Unable to get PIV <20g; anesthesia placed central line at bedside. Given 3rdU PRBC and started on levophed. Hg improved to ~10, no further episodes of bleeding in the ED. Discussed again with [facility] at 0700; pt deemed by them too unstable for transport with medic and refused transport. Reaching out to [facility]. [facility] unable to take patient; [facility] ground with availability. Pt subsequently with unobtainable blood pressure. Remains alert and mentating well, c/o feeling like she has to have a bowel movement (no further BM on assessment, again only the 1 since she has been here). Levophed rapidly up- titrated to 20 and 3rd unit which was running pressure-bagged in; subsequently manual BP 78/52. 2 units emergent release PRBCs ordered as well as FFP, regrettably no platelets available. Will continue resus with blood products and pressors. Signed out to oncoming physician, pt awaiting transport via [facility] ground anticipated arrival ~10am Imaging Data Radiologic Study: Imaging: CT Scan Radiologist's impression: IMPRESSION: 1. No acute intra-abdominal process. 2. Moderate compression deformity of the L1 vertebral body, new when compared to 02/17/2024 Lab Data Lab results reviewed: Yes I reviewed the patient's lab results. Labs: Laboratory Tests Range/Units 03/24/24 03/24/24 03/25/24 22:38 23:24 00:17 WBC (4.4-10.8) 10^3/uL 12.44 H 12.93 H RBC (3.93-5.22) 10^6/uL 3.13 L 2.51 L Hgb (11.2-15.7) g/dL 8.7 L 7.0 L* Hct (36.0-46.0) % 28.2 L 22.8 L MCV (80-95) fL 90 91 MCH (27.0-33.0) pg 27.8 27.9 MCHC (32.0-36.0) % 30.9 L 30.7 L RDW (11.7-14.6) % 17.1 H 16.9 H Plt Count (130-400) 10^3/uL 301 225 MPV (8.0-11.0) fL 10.5 10.3 Immature Gran % % 2.8 Neutrophils % % 87.0 Lymphocytes % % 4.0 Monocytes % % 5.1 Eosinophils % % 0.6 Basophils % % 0.5 Nucleated RBC % (0.0-0.3) % 0.2 Absolute Neutrophils (1.2-6.7) 10^3/uL 10.82 H Absolute Lymphocytes (1.2-3.4) 10^3/uL 0.50 L Absolute Monocytes (0.1-0.8) 10^3/uL 0.63 Absolute Eosinophils (0.0-0.7) 10^3/uL 0.07 Absolute Basophils (0.0-0.2) 10^3/uL 0.06 RBC Morphology See Below Hypochromasia 1+ PT (9.1-11.1) sec 64.7 H 65.2 H INR (0.9-1.1) 7.7 H* 7.8 H* APTT (23.6-32.8) sec 41.4 H VBG Lactate (0.6-1.4) mmol/L 2.8 H* 1.3 Sodium (136-145) mmol/L 141 Potassium (3.5-5.1) mmol/L 4.9 Chloride (98-107) mmol/L 105 Carbon Dioxide (21.0-32.0) mmol/L 23.6 Anion Gap (3-11) mmol/L 12.4 H BUN (7-18) mg/dL 87 H* Creatinine (0.55-1.02) mg/dL 1.5 H Est GFR (CKD-EPI 2020) (mL/min/1.73m2) 34.15 Glucose (74-106) mg/dL 246 H Calcium (8.5-10.1) mg/dL 8.7 Total Bilirubin (0.2-1.0) mg/dL 0.88 AST (15-37) U/L 17 ALT (14-59) U/L 15 Alkaline Phosphatase (46-116) U/L 77 Troponin I (<or=51) ng/L 11 9 NT-Pro-B Natriuret Pep (<300) pg/mL 3036 H Total Protein (6.4-8.2) g/dL 6.4 Albumin (3.4-5.0) g/dL 3.1 L Procalcitonin ng/mL < 0.1 TSH (0.36-3.74) uIU/mL 9.14 H Free T4 (0.76-1.46) ng/dL 0.96 ABO/Rh O Positive Antibody Screen NEGATIVE Crossmatch See Detail Range/Units 03/25/24 03/25/24 03/25/24 00:59 01:48 02:34 WBC (4.4-10.8) 10^3/uL 11.15 H RBC (3.93-5.22) 10^6/uL 3.08 L Hgb (11.2-15.7) g/dL 8.6 L Hct (36.0-46.0) % 27.5 L MCV (80-95) fL 89 MCH (27.0-33.0) pg 27.9 MCHC (32.0-36.0) % 31.3 L RDW (11.7-14.6) % 16.1 H Plt Count (130-400) 10^3/uL 209 MPV (8.0-11.0) fL 10.0 Immature Gran % % Neutrophils % % Lymphocytes % % Monocytes % % Eosinophils % % Basophils % % Nucleated RBC % (0.0-0.3) % Absolute Neutrophils (1.2-6.7) 10^3/uL Absolute Lymphocytes (1.2-3.4) 10^3/uL Absolute Monocytes (0.1-0.8) 10^3/uL Absolute Eosinophils (0.0-0.7) 10^3/uL Absolute Basophils (0.0-0.2) 10^3/uL RBC Morphology Hypochromasia PT (9.1-11.1) sec 12.8 H INR (0.9-1.1) 1.3 H APTT (23.6-32.8) sec VBG Lactate (0.6-1.4) mmol/L Sodium (136-145) mmol/L Potassium (3.5-5.1) mmol/L Chloride (98-107) mmol/L Carbon Dioxide (21.0-32.0) mmol/L Anion Gap (3-11) mmol/L BUN (7-18) mg/dL Creatinine (0.55-1.02) mg/dL Est GFR (CKD-EPI 2020) (mL/min/1.73m2) Glucose (74-106) mg/dL Calcium (8.5-10.1) mg/dL Total Bilirubin (0.2-1.0) mg/dL AST (15-37) U/L ALT (14-59) U/L Alkaline Phosphatase (46-116) U/L Troponin I (<or=51) ng/L 11 NT-Pro-B Natriuret Pep (<300) pg/mL Total Protein (6.4-8.2) g/dL Albumin (3.4-5.0) g/dL Procalcitonin ng/mL TSH (0.36-3.74) uIU/mL Free T4 (0.76-1.46) ng/dL ABO/Rh Antibody Screen Crossmatch Quality:SDOH Health Related Social Needs: No Data to Display Critical Care Time Critical Care Time Critical Care Time: Yes Total Critical Care Time: 68 Attestation: Due to a high probability of clinically significant, life threatening deterioration, the patient required my highest level of preparedness to intervene emergently and I personally spent this critical care time directly and personally managing the patient. This critical care time included obtaining a history; examining the patient; pulse oximetry; ordering and review of studies; arranging urgent treatment with development of a management plan; evaluation of patient's response to treatment; frequent reassessment; and, discussions with other providers. This critical care time was performed to assess and manage the high probability of imminent, life-threatening deterioration that could result in multi-organ failure. It was exclusive of separately billable procedures and treating other patients [facility] All Active Problems (Updated 03/25/24 @ 04:20 by Angie Stout MD) Coagulopathy (Acute) Shock (Acute) Acute GI bleeding (Acute) Nonhealing nonsurgical wound with fat layer exposed (Acute) Wound of left lower extremity (Acute) Anticoagulated on Coumadin (Acute) Lesion of skin of nose (Acute) Conductive hearing loss in right ear (Acute 02/23/15) Mixed conductive and sensorineural hearing loss of right ear with restricted hearing of left ear (Acute 07/25/16) Sensorineural hearing loss (SNHL) of left ear with restricted hearing of right ear (Acute 07/25/16) Sensorineural hearing loss, bilateral (Acute 02/25/17) Medical History Abscess Bunion Memory deficit Subclinical hypothyroidism Elevated TSH Type 2 diabetes mellitus Hypocalcemia CKD (chronic kidney disease) Tricuspid valve regurgitation Facial skin lesion Hyperlipidemia Asthma CAD (coronary artery disease) A-fib HTN (hypertension) Diabetes mellitus Lactose intolerance Osteoporosis Diverticulitis Allergic rhinitis Hiatal hernia Mitral valve stenosis Insomnia Leg cramps Surgical History Status post excisional debridement (~02/2024) Left Leg Mitral valve replaced History of bladder suspension procedure History of tonsillectomy H/O adenoidectomy Family History Father , d. 60 Throat cancer Mother , d. 80 Heart disease Social History Smoking/Tobacco Use Status: Never Smoking risk assessment performed?: Yes Alcohol Intake: never Drug use: Never Substance use type: does not use Household members: none Housing: other Number of Children: 4 Do you feel safe at home: Yes Do you feel safe in your relationship?: Yes Additional Social history: son lives nearby
[2024-03-24 22:53] LABS: Abs Immature Grans 0.35 10^3/uL (0.0-0.06); Absolute Basophil Count 0.06 10^3/uL (0.0-0.2); Basophils % 0.5 %; Eosinophils % 0.6 %; HCT 28.2 % (36.0-46.0); HGB 8.7 g/dL (11.2-15.7); Immature Grans % 2.8 %; MCH 27.8 pg (27.0-33.0); MCHC 30.9 % (32.0-36.0); MCV 90 fL (80-95); MPV 10.5 fL (8.0-11.0); Monocytes % 5.1 %; Nucleated RBC 0.2 % (0.0-0.3); Platelet Count 301 10^3/uL (130-400); RBC 3.13 10^6/uL (3.93-5.22); RDW 17.1 % (11.7-14.6); RDW-SD 54.6 fL; WBC 12.44 10^3/uL (4.4-10.8)
[2024-03-24 23:00] LABS: Lactate 2.8 mmol/L (0.6-1.4)
[2024-03-24 23:05] LABS: Absolute Eosinophil Count 0.07 10^3/uL (0.0-0.7); Absolute Monocyte Count 0.63 10^3/uL (0.1-0.8); Absolute Neutrophil Count 10.82 10^3/uL (1.2-6.7)
[2024-03-24 23:06] LABS: Diff Comment RBC Morph Reviewed; Hypochromasia 1+; PTT Activated 41.4 sec (23.6-32.8); Prothrombin Time 64.7 sec (9.1-11.1)
[2024-03-24 23:25] LABS: INR 7.7 (0.9-1.1)
[2024-03-24 23:30] LABS: ALT 15 U/L (14-59); AST 17 U/L (15-37); Albumin 3.1 g/dL (3.4-5.0); Alkaline Phosphatase 77 U/L (46-116); Anion Gap 12.4 mmol/L (3-11); Bilirubin, Total 0.88 mg/dL (0.2-1.0); CO2 23.6 mmol/L (21.0-32.0); CREATININE 1.5 mg/dL (0.55-1.02); Calcium 8.7 mg/dL (8.5-10.1); Chloride 105 mmol/L (98-107); Estimated GFR 34.15 (mL/min/1.73m2); Glucose 246 mg/dL (74-106); NT-proBNP 3036 pg/mL (<300); Potassium 4.9 mmol/L (3.5-5.1); Sodium 141 mmol/L (136-145); TSH (W/Ref FT4) 9.14 uIU/mL (0.36-3.74); Total Protein 6.4 g/dL (6.4-8.2); Troponin I 11 ng/L (<or=51)
[2024-03-24 23:35] LABS: BUN 87 mg/dL (7-18)
[2024-03-24 23:41] LABS: Procalcitonin < 0.1 ng/mL
[2024-03-24 23:47] LABS: FREE T4 0.96 ng/dL (0.76-1.46)
[2024-03-24 23:48] LABS: Troponin I 9 ng/L (<or=51)
[2024-03-25] VITALS (235 sets, daily range): BP systolic 67–140; BP diastolic 40–79; PULSE 69–115; RESP 11–22; TEMP 36.2–36.8; O2SAT 92–100
[2024-03-25] MEDS: Phytonadione 10 MG/ML AMP IV (00:02)
--- NOTE | 2024-03-25 00:05 | DI.CT_ITS ---
Exam(s) CT ABDOMEN PELVIS W EXAM: CT ABDOMEN PELVIS W CLINICAL HISTORY: diarrhea. TECHNIQUE: Imaging Protocol: Axial computed tomography images with coronal and sagittal reformatted images were created and reviewed CONTRAST MATERIAL: Intravenous: Omnipaque-350 100cc Oral: None COMPARISON: CT CT ABD AORTA CTA W RUNOFF from 02/17/2024 FINDINGS: VISUALIZED LUNG BASES: No nodules nor pleural effusions evident. ABDOMEN: There is no ascites. LIVER: There are no focal hepatic lesions evident. No dilated intrahepatic ducts. GALLBLADDER/BILIARY: No obvious gallbladder pathology. CBD is not dilated. PANCREAS: No evidence of pancreatic mass nor dilatation of the pancreatic duct. SPLEEN: Spleen is not enlarged. There are 2 small hypodense lesions in the spleen measuring less anthony n 1 cm. These are too small to characterize. Splenic and portal veins are patent. ADRENALS: There are no significant adrenal masses. KIDNEYS:Tiny benign cysts both kidneys, not requiring further workup. No solid renal masses. No christian culi. No hydronephrosis. Hydroureter.. ABDOMINAL AORTA: Abdominal aorta is calcified but not enlarged. Common iliac arteries are also calci fied but not enlarged. LYMPH NODES:There is no retroperitoneal nor paraaortic adenopathy. ABDOMINAL WALL: No evidence of significant anterior abdominal wall nor inguinal hernia. GI: There is no evidence of bowel obstruction, free air, nor abscess. PELVIS: GI: No evidence of appendicitis.There is extensive sigmoid diverticulosis.. No obvious acute diverti culitis. LYMPH NODES: There is no intrapelvic nor inguinal adenopathy. REPRODUCTIVE: Uterus and adnexal regions appear age-appropriate URINARY BLADDER: No calculi nor obvious masses evident OSSEOUS: There is a compression fracture of superior endplate of L1 with approximately 30-40 percent height loss. This was not evident on prior CT scan of 02/17/2024. No canal compromise. IMPRESSION: 1. There is a 30-40 percent compression fracture of L1 vertebral body which was not evident on recent CT scan of 02/17/2024. No significant canal compromise at this level. 2. No other significant findings RADIATION DOSE DELIVERED: 464.1mGy.cm Total DLP DATA REPOSITORY: All CT scans at this facility are submitted to the National Radiology Data Registry (NRDR) Dose Index Registry (DIR) with the [employer] (ACR). RADIATION OPTIMIZATION: All CT scans at this facility use at least one of these dose optimization te chniques: automated exposure control; mA and/or kV adjustment per patient size (includes targeted exa ms where dose is matched to clinical indication); or iterative reconstruction.
[2024-03-25 00:22] LABS: Lactate 1.3 mmol/L (0.6-1.4)
[2024-03-25] MEDS: Normal Saline - Diluent 50 ML VIAL IJ (00:22)
[2024-03-25 00:23] LABS: HCT 22.8 % (36.0-46.0); MCH 27.9 pg (27.0-33.0); MCHC 30.7 % (32.0-36.0); MCV 91 fL (80-95); MPV 10.3 fL (8.0-11.0); Platelet Count 225 10^3/uL (130-400); RBC 2.51 10^6/uL (3.93-5.22); RDW 16.9 % (11.7-14.6); RDW-SD 54.8 fL; WBC 12.93 10^3/uL (4.4-10.8)
[2024-03-25] MEDS: Omnipaque 350 MG/ML 100 ML BTL IJ (00:23)
[2024-03-25] MEDS: Ondansetron 4 MG/2 ML VIAL IVP (00:27)
[2024-03-25] MEDS: HUMAN PROTHROM. CMPX. 1,500 UNIT in EMPTY EVACUATED CONTAINER 1 EACH 360 UNIT IV (00:29)
[2024-03-25] MEDS: Pantoprazole 40 MG VIAL 80 MG IVP (00:30)
[2024-03-25 00:34] LABS: Prothrombin Time 65.2 sec (9.1-11.1)
[2024-03-25] MEDS: Normal Saline 50 ML 100 ML (00:43)
[2024-03-25 00:55] LABS: INR 7.8 (0.9-1.1)
[2024-03-25 01:18] LABS: Prothrombin Time 12.8 sec (9.1-11.1)
--- NOTE | 2024-03-25 01:21 | DI.VRAD_ITS ---
PROCEDURE INFORMATION: Exam: CT Abdomen And Pelvis With Contrast Exam date and time: 03/25/2024 12:20 AM Age: 83 years old Clinical indication: Other: Diarrhea TECHNIQUE: Imaging protocol: Computed tomography of the abdomen and pelvis with contrast. Contrast material: OMNI 350; Contrast volume: 100 ml; Contrast route: INTRAVENOUS (IV); COMPARISON: CT ABD AORTA CTA W RUNOFF 02/17/2024 11:07 AM FINDINGS: Lungs: Bilateral lower lobe atelectatic/fibrotic changes. Diaphragm: Small hiatal hernia. Liver: Normal. No mass. Gallbladder and biliary ducts: Normal. No calcified stones. No ductal dilation. Pancreas: Normal. No ductal dilation. Spleen: 2 hypoenhancing lesions in the cranial aspect of the spleen measuring up to 8 mm, too small to characterize. Adrenal glands: Normal. No mass. Kidneys and ureters: Simple cyst in the interpolar region of the right kidney measuring 4 mm. Simple cyst in the lower pole of the left kidney measuring 3 mm. No hydronephrosis on either side. Stomach and bowel: There is diverticulosis of the descending and sigmoid colon with no changes of diverticulitis. Appendix: No evidence of appendicitis. Intraperitoneal space: Unremarkable. No free air. No significant fluid collection. Vasculature: Vascular calcifications. Lymph nodes: Unremarkable. No enlarged lymph nodes. Urinary bladder: Unremarkable as visualized. Reproductive: Unremarkable as visualized. Bones/joints: Mild degenerative disease of bilateral sacroiliac joints and symphysis pubis. Mild degenerative disease of bilateral hip joints. There is a new moderate compression deformity of the L1 vertebral body with mild retropulsion causing mild anterior bony canal narrowing. Soft tissues: Unremarkable. Other findings: No epidural hematoma. IMPRESSION: 1. No acute intra-abdominal process. 2. Moderate compression deformity of the L1 vertebral body, new when compared to 02/17/2024. Dictated and Authenticated by: Isaiah Mancilla MD. Ordering:MARLENE Adams MD
[2024-03-25] MEDS: Metoclopramide 10 MG/2 ML VIAL IVP (01:24)
[2024-03-25] MEDS: Normal Saline 50 ML (01:27)
[2024-03-25 01:38] LABS: INR 1.3 (0.9-1.1)
[2024-03-25 02:11] LABS: Troponin I 11 ng/L (<or=51)
[2024-03-25 02:40] LABS: HCT 27.5 % (36.0-46.0); MCH 27.9 pg (27.0-33.0); MCHC 31.3 % (32.0-36.0); MCV 89 fL (80-95); Platelet Count 209 10^3/uL (130-400); RBC 3.08 10^6/uL (3.93-5.22); RDW 16.1 % (11.7-14.6); RDW-SD 51.8 fL; WBC 11.15 10^3/uL (4.4-10.8)
[2024-03-25 02:44] LABS: HGB 8.6 g/dL (11.2-15.7)
--- NOTE | 2024-03-25 05:45 | DI.RAD_ITS ---
Exam(s) XR PORTABLE CHEST AP POST LINE EXAM: XR PORTABLE CHEST AP POST LINE CLINICAL HISTORY: central line placement. TECHNIQUE: 2D digital imaging was performed. COMPARISON: No exams were available for comparison FINDINGS: Single AP portable view. Distal aspect of the right jugular central line is in the upper right atrium. Sternotomy wires, cardiomegaly mitral valve prosthesis again noted. No infiltrates nor pleural effusions evident. Mild pulmonary venous hypertension pattern but no airs pace pulmonary edema. IMPRESSION: Central line. Pulmonary venous hypertension but no airspace pulmonary edema. DATA REPOSITORY: RADIATION DOSE DELIVERED:
--- NOTE | 2024-03-25 06:05 | ANES.VASC_ITS ---
Central Venous Line Placement Date Performed: 03/25/24 Procedure Time: 05:36 Procedure Location: Emergency Department Requesting Provider: Angie Stout Standard Monitors Applied: ECG, Blood Pressure, SpO2 and See EMR for corresponding vital signs Pt. Position: Supine Timeout Performed: Yes Sedation Given (Indicate Dose Given): No Sedation given Patient Mental Status: Awake Sterility: Hand Hygiene, Surgical Cap, Surgical Mask, Sterile Gloves, Sterile Drape/Sheet, Sterile Gown, Eye Protection and Chlorhexidine Laterality: Right Insertion Site: Internal Jugular (IJ) Central Line Type: Triple Lumen Catheter Insertion Procedure: 1% Lidocaine to skin and subcutaneous tissue with 25g needle, Vessel accessed with needle, Guidewire placed with ease, Dermatotomy (skin josué) made with scalpel, Dilator placed without resistance, Introdu cer/Catheter placed without resistance, Guidewire removed and Claves placed, blood withdrawn, ports flushed and clamped Dressing: Tegaderm Applied, BioPatch and Sutured in Place Catheter Depth at Skin (cm): 20 Placement Confirmation: Confirmation X-Ray Ordered Ultrasound: Sterile probe cover and gel used Ultrasound Image Saved?: Yes Number of Attempts (See previous attempts in note section): 1 Procedure Tolerated: No Complications and Patient tolerated well Procedure Outcome: Successful Procedure Comment: After confirmation xray, catheter tip noted to be approaching the depth of the right atrium, sutures removed and under sterile technique the catheter is withdrawn 5cm to a depth of approximately 15cm. The patient tolerated this well. Performed By: Ralf Villanueva Supervised By: Dimas Bush
[2024-03-25 06:33] LABS: HCT 31.3 % (36.0-46.0); MCH 27.5 pg (27.0-33.0); MCHC 31.9 % (32.0-36.0); MCV 86 fL (80-95); MPV 9.8 fL (8.0-11.0); Platelet Count 206 10^3/uL (130-400); RBC 3.63 10^6/uL (3.93-5.22); RDW 16.6 % (11.7-14.6); WBC 11.05 10^3/uL (4.4-10.8)
[2024-03-25] MEDS: Norepinephrine in D5W 8 MG/250 ML BAG 5 MG IV (06:37)
--- NOTE | 2024-03-25 07:26 | DI.VRAD_ITS ---
Addendum created by Anila Wheeler MD on 03/25/2024 7:26:28 AM EDT: Not mentioned above: Hyperinflated lungs. Correlate clinically for chronic obstructive pulmonary disease. Initial report created on 03/25/2024 7:26:06 AM EDT: PROCEDURE INFORMATION: Exam: XR Chest Exam date and time: 03/25/2024 6:11 AM Age: 83 years old Clinical indication: Device placement; Other: Post central line placement TECHNIQUE: Imaging protocol: Radiologic exam of the chest. Views: 1 view. COMPARISON: CR XR CHEST 2V PA LATERAL 02/26/2022 2:17 PM FINDINGS: Tubes, catheters and devices: Right central venous catheter terminates in the expected location of the cavoatrial junction. Lungs: Mild pulmonary vascular congestion. Pleural spaces: No large pleural effusion seen. Heart/Mediastinum: Enlarged cardiac silhouette. Mitral valve replacement. Bones/joints: No acute abnormality. IMPRESSION: 1. Right central venous catheter as above 2. Enlarged cardiac silhouette. Mild pulmonary vascular congestion. Correlate clinically for heart failure. Dictated and Authenticated by: Anila Wheeler MD. Ordering:FAROOQ Cochran MD
[2024-03-25] MEDS: Pantoprazole 40 MG VIAL IVP (08:22)
--- NOTE | 2024-03-25 08:28 | W.ANESVAS ---
Arterial Line Placement Date Performed: 03/25/24 Procedure Time: 08:12 Procedure Location: Emergency Department Requesting Provider: Steve Paula Timeout Performed: Yes Sedation Given (Indicate Dose Given): No Sedation given Patient Mental Status: Awake Sterility: Hand Hygiene, Surgical Cap, Sterile Gloves, Sterile Drape/Sheet and Chlorhexidine Laterality: Left Insertion Site: Radial Arterial Line Catheter: 20G Arrow Arterial Line Procedure: Vessel accessed with catheter over needle, Guidewire placed with ease, Catheter placed without resistance and Guidewire removed Dressing: Tegaderm Applied and Other (Stat lock) Ultrasound: Sterile probe cover and gel used Ultrasound Image Saved?: No Number of Attempts (See previous attempts in note section): 2 Procedure Tolerated: No Complications and Patient tolerated well Procedure Outcome: Successful Performed By: Aaliyah Garcia
--- NOTE | 2024-03-25 08:31 | W.EDPROG ---
Date of service: 03/25/24 Time of Service: 08:32 Medical Decision Making No STEMI well transport is being arranged AVM. Apparently venogram will be coming to get the patient. There has been difficulty obtaining automated and manual blood pressures on the patient. Patient consents to having an arterial line placed which anesthesia placed without difficulty. Initial MAP above 95 on 20 of levo so this was titrated down to 5. Patient is awake and alert, states she does not feel well but does feel better after having transfusions. Will continue to monitor. Quality:[facility] Health Related Social Needs: No Data to Display Sign Out Sign Out Data: Sign Out Comment: hypotensive GI bleed, pending [facility] ground @1000. Initial INR 7.8, reversed to 1.3. 3U PRBCs infused, 2 units emergent release ordered and FFP, on levophed. Central line in place. s/p protonix, Vit K, k-centra Last updated by Angie Stout MD at 03/25/24 08:06 Discharge Plan Disposition Patient Disposition: Transfer-Acute Inpatient Care Specific [facility] Condition: Critical Discharge Details Clinical Impression: Acute GI bleeding, Shock, Coagulopathy Primary Care Provider: Mell Cueto ED Provider: Steve Paula Chester Meds and New Rx's Prescriptions: No Action atenolol 50 mg tablet 50 mg PO QAM Patient Comments: QPM per pt Jardiance 25 mg tablet 25 mg PO DAILY albuterol sulfate [ProAir HFA] 90 mcg/actuation Hfa Aerosol Inhaler 2 puff inhalation QID PRN PRN furosemide 80 mg tablet 80 mg PO QAM Patient Comments: TK 1 T PO QD cetirizine 10 mg tablet 10 mg PO QAM Patient Comments: TK 1 T PO D PRN cholecalciferol (vitamin D3) [Vitamin D3] 25 mcg (1,000 unit) tablet 1,000 unit PO QAM Patient Comments: TAKE 1 TABLET BY MOUTH ONCE DAILY atorvastatin [Lipitor] 10 mg Tablet 10 mg PO QPM potassium chloride 10 mEq tablet,ER particles/crystals 10 meq PO QAM Patient Comments: TK 1 T PO QD warfarin 5 mg tablet 2.5 - 5 mg PO DIRECTED PRN Patient Comments: TK 1 T PO D UTD Rx Instructions: 2.5 M/Th - 5 all other days alendronate 70 mg tablet 70 mg PO DIRECTED Patient Comments: TK 1 T PO WEEKLY ON AN EMPTY STOMACH WITH BIG GLASS OF WATER DONT LIE DOWN FOR AN HOUR Rx Instructions: weekly losartan 50 mg tablet 50 mg PO DAILY Patient Comments: TAKE ONE TABLET BY MOUTH EVERY DAY
[2024-03-25] MEDS: ACETAMINOPHEN 1,000 MG/100 ML BAG 400 MG IVPB (09:05)
[2024-03-25] MEDS: Ondansetron 4 MG/2 ML VIAL (09:45)
== END 2024-03-25 09:56 | disposition short-term general hospital (02) ==
PROVIDERS: Student in an Organized Health Care Education/Training Program; Emergency Provider Emergency Medicine; PCP Family Medicine
DX: K92.2 Gastrointestinal hemorrhage, unspecified (principal); R57.9 Shock, unspecified; D68.9 Coagulation defect, unspecified; L02.416 Cutaneous abscess of left lower limb; E11.22 Type 2 diabetes mellitus with diabetic chronic kidney disease; I12.9 Hypertensive chronic kidney disease with stage 1 through stage 4 chronic kidney disease, or unspecified chronic kidney disease; N18.9 Chronic kidney disease, unspecified; E78.5 Hyperlipidemia, unspecified; I25.2 Old myocardial infarction; I48.91 Unspecified atrial fibrillation; Z95.2 Presence of prosthetic heart valve; Z96.82 Presence of neurostimulator; Z79.84 Long term (current) use of oral hypoglycemic drugs; Z79.01 Long term (current) use of anticoagulants
CPT/HCPCS: 00123; 36430; 36556; 36620; 71045; 76942; 80053; 84145; 85027; 86850; 86900; 86901; 86920; 93005; 96361; 96365; 96366; 96367; 96375; 96376; 99291; 74177; 82270; 83605; 83880; 84439; 84443; 84484; 85025; 85610; 85730; 93010; J0131; J2405; J2470; J2765; J3430; J3490; J7168; P9016; P9059

== ENCOUNTER 2024-04-19 13:06 | Outpatient (REF) | payer OTHER, MEDICAID, SELFPAY ==
[2024-04-19 12:35] LABS: Anion Gap 10.9 mmol/L (3-11); BUN 21 mg/dL (7-18); CO2 27.1 mmol/L (21.0-32.0); Calcium 9.5 mg/dL (8.5-10.1); Chloride 101 mmol/L (98-107); Estimated GFR 55.21 (mL/min/1.73m2); Glucose 152 mg/dL (74-106); Potassium 3.5 mmol/L (3.5-5.1); Sodium 139 mmol/L (136-145)
[2024-04-19 12:38] LABS: HCT 42.4 % (36.0-46.0); HGB 13.9 g/dL (11.2-15.7); MCHC 32.8 % (32.0-36.0); MCV 88 fL (80-95); MPV 10.3 fL (8.0-11.0); Platelet Count 380 10^3/uL (130-400); RDW 15.8 % (11.7-14.6); RDW-SD 50.8 fL; WBC 8.69 10^3/uL (4.4-10.8)
== END 2024-04-19 13:07 | disposition home or self-care (01) ==
LOC: LBN 13:06
PROVIDERS: PCP Family Medicine; Visit Provider Family Medicine
DX: L02.416 Cutaneous abscess of left lower limb (principal)
CPT/HCPCS: 80048; 85027

== ENCOUNTER 2024-04-27 13:37 | Outpatient (REF) | payer OTHER, MEDICAID, SELFPAY ==
[2024-04-27 12:15] LABS: Prothrombin Time 18.7 sec (9.1-11.1)
== END 2024-04-27 13:38 | disposition home or self-care (01) ==
LOC: NCHCN 13:37
PROVIDERS: PCP Family Medicine; Visit Provider Family Medicine
DX: I48.91 Unspecified atrial fibrillation (principal)
CPT/HCPCS: 85610

== ENCOUNTER 2024-05-04 09:05 | Outpatient (CLI) | payer OTHER, MEDICAID, SELFPAY ==
[2024-05-04 11:35] LABS: Abs Immature Grans 0.04 10^3/uL (0.0-0.06); Absolute Basophil Count 0.04 10^3/uL (0.0-0.2); Absolute Eosinophil Count 0.31 10^3/uL (0.0-0.7); Absolute Lymphocyte Count 0.52 10^3/uL (1.2-3.4); Absolute Monocyte Count 0.59 10^3/uL (0.1-0.8); Basophils % 0.5 %; Eosinophils % 4.2 %; HCT 43.5 % (36.0-46.0); HGB 14.1 g/dL (11.2-15.7); Immature Grans % 0.5 %; Lymphocytes % 7.1 %; MCH 29.1 pg (27.0-33.0); MCHC 32.4 % (32.0-36.0); MCV 90 fL (80-95); MPV 9.9 fL (8.0-11.0); Monocytes % 8.1 %; Neutrophils % 79.6 %; Platelet Count 250 10^3/uL (130-400); RBC 4.84 10^6/uL (3.93-5.22); RDW 15.8 % (11.7-14.6); RDW-SD 51.8 fL
[2024-05-04 11:36] LABS: Bilirubin Negative (Negative); Blood Trace-intact (Negative); Clarity Clear (Clear); Glucose 500 mg/dL (Negative); Ketones Negative (Negative); Leukocyte Esterase Negative (Negative); Nitrite Negative (Negative); Specific Gravity 1.015 (1.005-1.025); Urobilinogen 0.2 mg/dL (Up to 0.2)
[2024-05-04 11:44] LABS: Bacteria Few HPF (Negative); C & S Indicated? No; Casts Negative LPF (Negative); Crystals Negative HPF (Negative); Epithelial Cells Rare HPF (Negative); Mucus Negative (Negative); Other Cells Negative (Negative); RBC 0-2 HPF (0-2); WBC 0-2 HPF (0-5)
[2024-05-04 11:53] LABS: Hemoglobin A1C 6.4 % (<5.7)
[2024-05-04 11:57] LABS: Prothrombin Time 37.5 sec (9.1-11.1)
[2024-05-04 12:12] LABS: ALT 31 U/L (14-59); AST 31 U/L (15-37); Albumin 4.1 g/dL (3.4-5.0); Alkaline Phosphatase 122 U/L (46-116); Anion Gap 10.8 mmol/L (3-11); BUN 13 mg/dL (7-18); Bilirubin, Total 1.26 mg/dL (0.2-1.0); CO2 29.2 mmol/L (21.0-32.0); CREATININE 1.1 mg/dL (0.55-1.02); Calcium 9.7 mg/dL (8.5-10.1); Chloride 102 mmol/L (98-107); Estimated GFR 49.24 (mL/min/1.73m2); Glucose 157 mg/dL (74-106); Potassium 3.8 mmol/L (3.5-5.1); Sodium 142 mmol/L (136-145); Total Protein 8.1 g/dL (6.4-8.2)
[2024-05-04 12:27] LABS: C-Reactive Protein < 0.50 mg/dL (<or=0.5)
[2024-05-04 12:31] LABS: INR 4.2 (0.9-1.1)
[2024-05-04 12:58] LABS: Vitamin D 25 Total 49.8 ng/mL (30-100)
== END 2024-05-04 09:06 | disposition home or self-care (01) ==
LOC: LBO 09:05
PROVIDERS: Surgery; PCP Family Medicine; Visit Provider Family Medicine
DX: R19.7 Diarrhea, unspecified (principal); M54.50 Low back pain, unspecified; E11.9 Type 2 diabetes mellitus without complications; M81.0 Age-related osteoporosis without current pathological fracture; I48.91 Unspecified atrial fibrillation
CPT/HCPCS: 36415; 80053; 82306; 81003; 81015; 83036; 85025; 85610; 86140

== ENCOUNTER 2024-05-11 13:51 | Outpatient (CLI) | payer OTHER, MEDICAID, SELFPAY ==
[2024-05-11 11:22] LABS: INR 3.7 (0.9-1.1); Prothrombin Time 33.4 sec (9.1-11.1)
== END 2024-05-11 13:52 | disposition home or self-care (01) ==
LOC: LBO 13:51
PROVIDERS: PCP Family Medicine; Visit Provider Family Medicine
DX: Z79.01 Long term (current) use of anticoagulants (principal); I48.91 Unspecified atrial fibrillation
CPT/HCPCS: 36415; 85610

== ENCOUNTER → 2024-05-13 13:01 | Outpatient (BNVA) | payer OTHER, MEDICAID, SELFPAY | PROVIDERS: PCP Family Medicine; Referring Provider Family Medicine; Visit Provider Surgery | DX: S81.802D Unspecified open wound, left lower leg, subsequent encounter (principal); X58.XXXD Exposure to other specified factors, subsequent encounter | CPT/HCPCS: 99213 ==

== ENCOUNTER 2024-05-18 03:07 | Outpatient (CLI) | payer OTHER, MEDICAID, SELFPAY ==
[2024-05-18 11:50] LABS: INR 3.1 (0.9-1.1); Prothrombin Time 27.9 sec (9.1-11.1)
== END 2024-05-18 03:08 | disposition home or self-care (01) ==
LOC: LBO 03:07
PROVIDERS: PCP Family Medicine; Visit Provider Family Medicine
DX: I48.91 Unspecified atrial fibrillation (principal); Z79.01 Long term (current) use of anticoagulants
CPT/HCPCS: 36415; 85610

== ENCOUNTER 2024-05-25 13:57 | Outpatient (CLI) | payer OTHER, MEDICAID, SELFPAY ==
[2024-05-25 11:09] LABS: INR 3.8 (0.9-1.1); Prothrombin Time 34.3 sec (9.1-11.1)
== END 2024-05-25 13:58 | disposition home or self-care (01) ==
LOC: LBO 13:58
PROVIDERS: PCP Family Medicine; Visit Provider Family Medicine
DX: I48.91 Unspecified atrial fibrillation (principal); Z79.01 Long term (current) use of anticoagulants
CPT/HCPCS: 36415; 85610

== ENCOUNTER 2024-06-01 15:05 | Outpatient (CLI) | payer OTHER, MEDICAID, SELFPAY ==
[2024-06-01 11:28] LABS: Prothrombin Time 27.1 sec (9.1-11.1)
== END 2024-06-01 15:06 | disposition home or self-care (01) ==
LOC: LBO 15:06
PROVIDERS: PCP Family Medicine; Visit Provider Family Medicine
DX: I48.91 Unspecified atrial fibrillation (principal)
CPT/HCPCS: 36415; 85610

== ENCOUNTER 2024-06-08 03:01 | Outpatient (CLI) | payer MEDICARE, MEDICAID, SELFPAY ==
[2024-06-08 11:45] LABS: INR 2.6 (0.9-1.1); Prothrombin Time 24.3 sec (9.1-11.1)
== END 2024-06-08 03:02 | disposition home or self-care (01) ==
LOC: LBO 03:01
PROVIDERS: PCP Family Medicine; Visit Provider Family Medicine
DX: I48.91 Unspecified atrial fibrillation (principal); Z79.01 Long term (current) use of anticoagulants
CPT/HCPCS: 36415; 85610

== ENCOUNTER 2024-06-22 02:32 | Outpatient (CLI) | payer MEDICARE, MEDICAID, SELFPAY ==
[2024-06-22 11:44] LABS: INR 2.1 (0.9-1.1); Prothrombin Time 19.8 sec (9.1-11.1)
== END 2024-06-22 02:33 | disposition home or self-care (01) ==
PROVIDERS: PCP Family Medicine; Visit Provider Family Medicine
DX: I48.91 Unspecified atrial fibrillation (principal); Z79.01 Long term (current) use of anticoagulants
CPT/HCPCS: 36415; 85610

== ENCOUNTER 2024-06-29 03:17 | Outpatient (CLI) | payer MEDICARE, MEDICAID, SELFPAY ==
[2024-06-29 11:05] LABS: INR 2.2 (0.9-1.1)
== END 2024-06-29 03:18 | disposition home or self-care (01) ==
LOC: LBO 03:17
PROVIDERS: PCP Family Medicine; Visit Provider Family Medicine
DX: Z79.01 Long term (current) use of anticoagulants (principal); I48.91 Unspecified atrial fibrillation
CPT/HCPCS: 36415; 85610

== ENCOUNTER 2024-07-06 15:27 | Outpatient (CLI) | payer MEDICARE, MEDICAID, SELFPAY ==
[2024-07-06 11:57] LABS: INR 2.3 (0.9-1.1); Prothrombin Time 21.7 sec (9.1-11.1)
== END 2024-07-06 15:28 | disposition home or self-care (01) ==
LOC: LBO 15:31
PROVIDERS: PCP Family Medicine; Visit Provider Family Medicine
DX: I48.91 Unspecified atrial fibrillation (principal); Z79.01 Long term (current) use of anticoagulants
CPT/HCPCS: 36415; 85610

== ENCOUNTER 2024-07-13 03:27 | Outpatient (CLI) | payer MEDICARE, MEDICAID, SELFPAY ==
[2024-07-13 11:50] LABS: INR 1.8 (0.9-1.1); Prothrombin Time 17.1 sec (9.1-11.1)
== END 2024-07-13 03:28 | disposition home or self-care (01) ==
LOC: LBO 03:27
PROVIDERS: PCP Family Medicine; Visit Provider Family Medicine
DX: I48.91 Unspecified atrial fibrillation (principal); Z79.01 Long term (current) use of anticoagulants
CPT/HCPCS: 36415; 85610

== ENCOUNTER 2024-07-20 14:50 | Outpatient (CLI) | payer MEDICARE, MEDICAID, SELFPAY ==
[2024-07-20 11:43] LABS: INR 1.6 (0.9-1.1); Prothrombin Time 15.3 sec (9.1-11.1)
== END 2024-07-20 14:51 | disposition home or self-care (01) ==
LOC: LBO 14:51
PROVIDERS: PCP Family Medicine; Visit Provider Family Medicine
DX: I48.91 Unspecified atrial fibrillation (principal); Z79.01 Long term (current) use of anticoagulants
CPT/HCPCS: 36415; 85610

== ENCOUNTER 2024-07-27 02:42 | Outpatient (CLI) | payer MEDICARE, MEDICAID, SELFPAY ==
[2024-07-27 12:32] LABS: INR 2.1 (0.9-1.1); Prothrombin Time 19.7 sec (9.1-11.1)
== END 2024-07-27 02:43 | disposition home or self-care (01) ==
PROVIDERS: PCP Family Medicine; Visit Provider Family Medicine
DX: I48.91 Unspecified atrial fibrillation (principal); Z79.01 Long term (current) use of anticoagulants
CPT/HCPCS: 36415; 85610

== ENCOUNTER 2024-08-03 03:00 | Outpatient (CLI) | payer MEDICARE, MEDICAID, SELFPAY ==
[2024-08-03 11:36] LABS: INR 2.7 (0.9-1.1); Prothrombin Time 25.2 sec (9.1-11.1)
== END 2024-08-03 03:01 | disposition home or self-care (01) ==
PROVIDERS: PCP Family Medicine; Visit Provider Family Medicine
DX: I48.91 Unspecified atrial fibrillation (principal); Z79.01 Long term (current) use of anticoagulants
CPT/HCPCS: 36415; 85610

== ENCOUNTER 2024-08-13 20:44 | Emergency (ER) | payer MEDICARE, MEDICAID, SELFPAY ==
[2024-08-13] VITALS (49 sets, daily range): BP systolic 60–165; BP diastolic 39–142; PULSE 57–201; RESP 3–40; TEMP 36.8; O2SAT 89–97
--- NOTE | 2024-08-13 00:12 | DI.CT_ITS ---
Exam(s) CT CHEST WO EXAM: CT CHEST WO CLINICAL HISTORY: eval SOB. TECHNIQUE: Imaging protocol: Axial computed tomography images were obtained and coronal and sagittal reformatted images were created and reviewed. Lung Computer Aided Detection (CAD) was utilized. COMPARISON: CT CT ABD AORTA CTA W RUNOFF from 02/17/2024 CR,XR XR PORTABLE CHEST AP POST LINE from 03/25/[address] ABDOMEN PELVIS W from 03/25/2024 CR,XR XR PORTABLE CHEST AP from 08/13/2024 FINDINGS: The examination is limited due to patient motion artifact. Tracheobronchial tree: Patent where visualized. There is some mucous plugging seen in airway branches in the lower lobes bilaterally. Pulmonary parenchyma: There is a patchy reticular nodular infiltrate seen in the superior segment of the right lower lobe. There is also small infiltrate seen in the left lower lobe. There are few tin y noncalcified pulmonary nodules. The largest is in the right middle lobe measures 2-3 mm. Mediastinum and Carol: No dominant adenopathy or fluid collection. The esophagus is unremarkable.There is a small hiatal hernia. Thyroid gland: Unremarkable. Pleura: No effusion or pneumothorax. Heart: There is marked cardiomegaly. Mitral prosthesis. Three vessel coronary artery calcification is present. No pericardial effusion. Aorta: Thoracic aorta non-dilated. Atherosclerotic calcification is present. There is marked calcifi cation at the origin of the left subclavian artery causing 50-75 percent stenosis. Upper abdomen: Unremarkable. Lymph nodes: Within normal limits. Soft tissues: Unremarkable. Bones:Within normal limits for the patient's age. There is an old L1 compression fracture deformity. Sternal wires are in place. IMPRESSION: 1. Reticular nodular infiltrate seen predominantly in the lower lobe suspicious for infection. 2. Mucous plugging seen in the lower lobes bilaterally. 3. Few tiny noncalcified pulmonary nodules. The largest measures 2-3 mm. Solid nodules smaller than 6 mm do not require routine follow-up in all patients with high clinical r isk; however, some nodules smaller than 6 mm with suspicious morphology, upper lobe location, or both may warrant follow-up at 12 months (grade 2A; weak recommendation, high-quality evidence). (Afshin et al., 2017) Single solid noncalcified nodules. ???Solid nodules smaller than 6 mm (those 5 mm or smaller) do not require routine follow-up in patients at low risk (grade 1C; strong recommendation, low- or very-low- quality evidence). (Afshin et al., 2017) Unexpected findings RADIATION DOSE DELIVERED: 265.46mGy.cm Total DLP 265.46mGy.cm Total DLP DATA REPOSITORY: All CT scans at this facility are submitted to the National Radiology Data Registry (NRDR) Dose Index Registry (DIR) with the [employer] (ACR). RADIATION OPTIMIZATION: All CT scans at this facility use at least one of these dose optimization te chniques: automated exposure control; mA and/or kV adjustment per patient size (includes targeted exa ms where dose is matched to clinical indication); or iterative reconstruction.
--- NOTE | 2024-08-13 20:45 | RT.EKG_ITS ---
APPROVED REPORT Exam: Resting ECG Reason for Exam: SOB Patient Location: E HR:189 bpm ECG Measurements Heart Rate 189 AXIS IN 113 P 126 QRSd 129 QRS -5 QT 289 T 179 QTc 514 Conclusion Wide-QRS tachycardia...V-rate>(220-age), QRSd>120 Left bundle branch block...QRSd>120, broad/notched R irregular wide complex tachycardia sgarboss negative
--- NOTE | 2024-08-13 21:08 | DI.RAD_ITS ---
Exam(s) XR PORTABLE CHEST AP EXAM: XR PORTABLE CHEST AP CLINICAL HISTORY: sob, tachycardia TECHNIQUE: 2D digital imaging was performed of the chest. One image was obtained. An AP view was ob tained. COMPARISON: CR,XR XR PORTABLE CHEST AP POST LINE from 03/25/2024 FINDINGS: Study compromise secondary to overlying monitoring equipment. MEDIASTINUM: Normal. HEART: There is a mitral valve replacement. Cardiomegaly. PULMONARY VASCULATURE: Normal. LUNGS: There is an infiltrate seen in the left lower lobe. PLEURAL SPACE: There is blunting of the left costophrenic angle suggesting a small left pleural effus ion. No right pleural effusion. No pneumothorax. BONE:Within normal limits for the patient's age. There is an old L1 compression fracture deformity. OTHER FINDINGS:Extensive atherosclerotic calcification is present. IMPRESSION: Infiltrate seen in the left lung base. The findings may represent of the infection. DATA REPOSITORY: RADIATION DOSE DELIVERED:
[2024-08-13 21:09] LABS: Abs Immature Grans 0.21 10^3/uL (0.0-0.06); Absolute Basophil Count 0.05 10^3/uL (0.0-0.2); Absolute Eosinophil Count 0.08 10^3/uL (0.0-0.7); Absolute Lymphocyte Count 0.56 10^3/uL (1.2-3.4); Absolute Monocyte Count 0.99 10^3/uL (0.1-0.8); Absolute Neutrophil Count 10.65 10^3/uL (1.2-6.7); Basophils % 0.4 %; Eosinophils % 0.6 %; HCT 49.1 % (36.0-46.0); HGB 15.7 g/dL (11.2-15.7); Immature Grans % 1.7 %; Lymphocytes % 4.5 %; MCH 29.1 pg (27.0-33.0); MCV 91 fL (80-95); MPV 10.4 fL (8.0-11.0); Monocytes % 7.9 %; Neutrophils % 84.9 %; Platelet Count 323 10^3/uL (130-400); RBC 5.39 10^6/uL (3.93-5.22); RDW 13.9 % (11.7-14.6); RDW-SD 46.9 fL; WBC 12.55 10^3/uL (4.4-10.8)
--- NOTE | 2024-08-13 21:09 | ED.GENADUL_ITS ---
Discharge Plan Disposition Patient Disposition: Transfer-Acute Inpatient Care Specific Acute Inpt Facility: [facility] Discharge Details Clinical Impression: Supratherapeutic INR, Atrial fibrillation with rapid ventricular response, Acute respiratory failure Primary Care Provider: Mell Cueto ED Provider: Jackie Daniels Home Meds and New Rx's Prescriptions: No Action albuterol sulfate 2.5 mg/0.5 mL solution for nebulization 5 mg inhalation Q4H zolpidem 5 mg tablet 5 mg PO QHS fluticasone propionate [Flonase Allergy Relief] 50 mcg/actuation spray,suspension 2 spray intranasal DAILY Rx Instructions: administer into each nostril fluticasone furoate 50 mcg/actuation blister with device 1 inh inhalation ONCE atenolol 50 mg tablet 50 mg PO QAM Patient Comments: QPM per pt Jardiance 25 mg tablet 25 mg PO DAILY ipratropium-albuterol 0.5 mg-3 mg(2.5 mg base)/3 mL solution for nebulization 3 ml INHALATION QID Patient Comments: INHALE 3 MLS 4 TIMES A DAY BY NEBULIZATION ROUTE albuterol sulfate [ProAir HFA] 90 mcg/actuation Hfa Aerosol Inhaler 2 puff inhalation QID PRN PRN furosemide 80 mg tablet 80 mg PO QAM Patient Comments: TK 1 T PO QD cetirizine 10 mg tablet 10 mg PO QAM Patient Comments: TK 1 T PO D PRN cholecalciferol (vitamin D3) [Vitamin D3] 25 mcg (1,000 unit) tablet 1,000 unit PO QAM Patient Comments: TAKE 1 TABLET BY MOUTH ONCE DAILY atorvastatin [Lipitor] 10 mg Tablet 10 mg PO QPM potassium chloride 10 mEq tablet,ER particles/crystals 10 meq PO QAM Patient Comments: TK 1 T PO QD warfarin 5 mg tablet 2.5 - 5 mg PO DIRECTED PRN Patient Comments: TK 1 T PO D UTD Rx Instructions: 2.5 M/ - 5 all other days alendronate 70 mg tablet 70 mg PO DIRECTED Patient Comments: TK 1 T PO WEEKLY ON AN EMPTY STOMACH WITH BIG GLASS OF WATER DONT LIE DOWN FOR AN HOUR Rx Instructions: weekly losartan 50 mg tablet 50 mg PO DAILY Patient Comments: TAKE ONE TABLET BY MOUTH EVERY DAY HPI General Date/Time Provider Initiated Documentation: 08/13/24 20:45 . HPI Narrative: Sushma is a 84 year old female who presents to the emergency department today for evaluation of shortness of breath and feeling generally unwell. She reports she was diagnosed with the flu a week ago, has had a persistent cough productive of whitish sputum that has been worsening since then. Also reports some increased pedal edema bilaterally. This evening developed acute shortness of breath/difficulty breathing and feeling overall unwell. Admits to decreased p.o. intake since diagnosis with the flu. Denies recent fever/chills, dizziness, chest pain, nausea/vomiting, abdominal pain, change in bowel or bladder function. Past medical history is significant for A-fib anticoagulated with Coumadin, mechanical mitral valve replacement, NM, asthma, iron deficiency anemia, T2DM, HTN, HLD, CAD. She is currently being treated for asthma exacerbation with prednisone and DuoNebs. Physical exam remarkable for anxious patient with increased work of breathing, coarse crackles throughout. Tachycardia, heart rate in the 190s. Moderate pedal edema noted bilaterally. No obvious JVD. Abdomen soft, nondistended, nontender to palpation. Wide-complex tachycardia noted on monitor. Dr Stout at bedside. Cardiac POCUS performed. D/dx includes but is not limited to: A-fib with RVR and new left bundle branch block, SVT, V. tach, electrolyte imbalance, dehydration, pneumonia, CHF I independently interpreted the following tests: Initial EKG notable for tachycardia rate 190s with wide QRS; slightly irregular rhythm noted; repeat EKG performed after amiodarone given, shows A-fib with LBBB, rate 124. CBC reassuring; mild leukocytosis 12.55. Creat/BUN elevated from baseline (1.5/49 today; 1.1/13 on 06/01/24). INR supratherapeutic at 7.0; repeat at 7.6. BNP elevated at 6884. Mag reassuring. Troponins flat; 39 and 39. COVID/flu/RSV negative. VBG reassuring; pH 7.39. While in the emergency department, Sushma received 150 mg amiodarone loading dose, followed by 1 mg/min infusion. Sushma was placed on BiPAP for shortness of breath, 10/5, tolerating BiPAP well. Duoneb given; pt reports she is feeling like she is breathing a bit better; course crackles with end exp wheeze throughout. [facility]- recommends continuing amiodarone and avoiding diltiazem/beta blockers until formal echo performed to r/o HF. 22:00- BP has dropped to 80s systolic; Trial of BiPAP ended; pt did not tolerate RA; bipap replaced. Blood pressures remaining stable at this time. 2330: Dr Brooks at [facility] updated on pt status; he is requesting CT of chest without contrast to further evaluate for causes of acute respiratory failure. I did request from that images be pushed to [facility] once CT is completed. I did review PCP records from [facility], Sushma was evaluated on 08/09/2024 for viral symptoms including coughing and runny nose, no fevers/chills, body aches, or pedal edema. She did have increased shortness of breath above baseline that did not respond to albuterol inhaler, prescribed Tamiflu, prednisone, and DuoNebs. Positive for flu B. She is vaccinated against flu and COVID. I did review echo report from 11/16/21; EF 50-55%, moderately enlarged atria bilaterally, trace aortic regurgitation; moderate/severe tricuspid regurgitation. Mechanical mitral valve. Handoff report given to Dr Connell, overnight attending. CT pending Related Data Home Medications ?Medication ?Instructions ?Recorded ?Confirmed albuterol sulfate 90 mcg/actuation 2 puff inhalation QID PRN PRN 09/27/19 08/13/24 aerosol inhaler (ProAir HFA) alendronate 70 mg tablet 70 mg PO DIRECTED 09/27/19 08/13/24 atorvastatin 10 mg tablet (Lipitor) 10 mg PO QPM 09/27/19 08/13/24 cetirizine 10 mg tablet 10 mg PO QAM 09/27/19 08/13/24 cholecalciferol (vitamin D3) 25 1,000 unit PO QAM 09/27/19 08/13/24 mcg (1,000 unit) tablet (Vitamin D3) furosemide 80 mg tablet 80 mg PO QAM 09/27/19 08/13/24 potassium chloride 10 mEq 10 meq PO QAM 09/27/19 08/13/24 tablet,extended release(part/cryst) warfarin 5 mg tablet 2.5 - 5 mg PO DIRECTED PRN 09/27/19 08/13/24 atenolol 50 mg tablet 50 mg PO QAM 11/13/21 08/13/24 empagliflozin 25 mg tablet 25 mg PO DAILY 01/01/24 08/13/24 (Jardiance) losartan 50 mg tablet 50 mg PO DAILY 02/18/24 08/13/24 albuterol sulfate 2.5 mg/0.5 mL 5 mg inhalation Q4H 07/06/24 08/13/24 solution for nebulization fluticasone furoate 50 1 inh inhalation ONCE 07/06/24 08/13/24 mcg/actuation blister powder for inhalation fluticasone propionate 50 2 spray intranasal DAILY 07/06/24 08/13/24 mcg/actuation nasal spray,suspension (Flonase Allergy Relief) zolpidem 5 mg tablet 5 mg PO QHS 07/06/24 08/13/24 ipratropium 0.5 mg-albuterol 3 mg 3 ml inhalation QID 08/13/24 08/13/24 (2.5 mg base)/3 mL nebulization soln Allergies Allergy/AdvReac Type Severity Reaction Status Date / Time peanut Allergy Severe Anaphylaxis Verified 08/13/24 20:56 Penicillins Allergy Unknown Pt thinks Verified 08/13/24 20:56 she gets a rash aminophylline Allergy unknown Verified 08/13/24 20:56 amiodarone Allergy unknown Verified 08/13/24 20:56 digoxin Allergy unknown Verified 08/13/24 20:56 enalaprilat (From Vasotec) Allergy unknown Verified 08/13/24 20:56 tree and shrub pollen Allergy Itching Verified 08/13/24 20:56 paper tape Allergy Intermediate Skin Rash, Uncoded 08/13/24 20:56 red and sore General Stated Complaint: Arrhythmia SANDRA: 2 Review of Systems Narrative: see HPI Exam Const General: cooperative, in distress and anxious Nutritional Appearance: thin Orientation: alert Resp Effort & Inspection: no cough, labored, retractions and uses accessory muscles Auscultation: crackles and wheezes (course wheezes) Cardio Rate: tachycardic Rhythm: abnormal rhythm irregularly irregular GI Inspection: normal to inspection and non-distended Palpation: soft, not firm, no guarding, not rigid and nontender Skin General skin exam: no rashes or lesions noted Trauma: no lacerations or abrasions Extrem General: pedal edema bilaterally pitting Course Vital Signs Vital signs: Vital Signs Temperature 36.8 C 08/13/24 20:49 Pulse 197 H 08/13/24 20:49 Respiratory Rate 28 H 08/13/24 20:49 Blood Pressure 155/130 H 08/13/24 20:49 Pulse Oximetry 89 L 08/13/24 20:49 Temperature 36.8 C 08/13/24 20:49 Temperature Source Temporal Artery Scan 08/13/24 20:49 Pulse 197 H 08/13/24 20:49 Respiratory Rate 28 H 08/13/24 20:49 Blood Pressure 155/130 H 08/13/24 20:49 Blood Pressure Position Sitting 08/13/24 20:49 Pulse Oximetry 89 L 08/13/24 20:49 Oxygen Delivery Method Room Air 08/13/24 20:49 Oxygen Flow Rate 0 08/13/24 20:49 Pain Level 0 08/13/24 20:49 Medical Decision Making Imaging Data Radiologic Study: Radiologist's impression: PROCEDURE INFORMATION: Exam: XR Chest Exam date and time: 08/13/2024 9:08 PM Age: 84 years old Clinical indication: Shortness of breath and other: Tachycardia; Prior surgery; Surgery date: 6+ months; Surgery type: Mitral valve replacement TECHNIQUE: Imaging protocol: Radiologic exam of the chest. Views: 1 view. CO MPARISON: XR PORTABLE CHEST AP POST LINE 03/25/2024 6:11 AM FINDINGS: Lungs: Patchy airspace opacities may represent atelectasis or edema, [id number]-left. Pleural spaces: Unremarkable. No pleural effusion. No pneumothorax. Heart/Mediastinum: The heart demonstrates diffuse enlargement. Prosthetic heart valve noted. Left chest drain noted. Bones/joints: Sternotomy wires are intact. Other findings: Small left effusion. IMPRESSION: 1. Patchy airspace opacities may represent atelectasis or edema, [id number]-left. 2. Small left effusion Quality:SDOH Health Related Social Needs: No Data to Display PFSH All Active Problems (Updated 08/13/24 @ 22:31 by Jackie Kwan) Acute respiratory failure (Acute) Atrial fibrillation with rapid ventricular response (Acute) Supratherapeutic INR (Acute) Iron refractory iron deficiency anemia (Acute) Nonhealing nonsurgical wound with fat layer exposed (Acute) Wound of left lower extremity (Acute) Anticoagulated on Coumadin (Acute) Lesion of skin of nose (Acute) Conductive hearing loss in right ear (Acute 02/23/15) Mixed conductive and sensorineural hearing loss of right ear with restricted hearing of left ear (Acute 07/25/16) Sensorineural hearing loss (SNHL) of left ear with restricted hearing of right ear (Acute 07/25/16) Sensorineural hearing loss, bilateral (Acute 02/25/17) Medical History Abscess Bunion Memory deficit Subclinical hypothyroidism Elevated TSH Type 2 diabetes mellitus Hypocalcemia CKD (chronic kidney disease) Tricuspid valve regurgitation Facial skin lesion Hyperlipidemia Asthma CAD (coronary artery disease) A-fib HTN (hypertension) Diabetes mellitus Lactose intolerance Osteoporosis Diverticulitis Allergic rhinitis Hiatal hernia Mitral valve stenosis Insomnia Leg cramps Surgical History Status post excisional debridement (~02/2024) Left Leg Mitral valve replaced History of bladder suspension procedure History of tonsillectomy H/O adenoidectomy Family History Father , d. 60 Throat cancer Mother , d. 80 Heart disease Social History Smoking/Tobacco Use Status: Never Smoking risk assessment performed?: Yes Alcohol Intake: never Drug use: Never Substance use type: does not use Household members: none Housing: other Number of Children: 4 Do you feel safe at home: Yes Do you feel safe in your relationship?: Yes Additional Social history: son lives nearby
[2024-08-13] MEDS: AMIODARONE 150 MG in DEXTROSE 5%-WATER 100 ML 600 MG IV INF (21:13)
--- NOTE | 2024-08-13 21:15 | RT.EKG_ITS ---
APPROVED REPORT Exam: Resting ECG Reason for Exam: SOB Patient Location: E HR:124 bpm ECG Measurements Heart Rate 124 AXIS OR [id number] P [id number] QRSd 123 QRS -76 QT 343 T 98 QTc 493 Conclusion Atrial fibrillation...V-rate 112-152, irreg A-activity Left bundle branch block...QRSd>120, broad/notched R ST elevation secondary to IVCD...Multiple VCG criteria afib LBBB sgarbossa negative
--- NOTE | 2024-08-13 21:18 | W.ED.EVENT ---
Date of service: 08/13/24 Time of Service: 20:55 Event Note: 84yo F presented for shortness of breath. I was called to bedside by BRANDO Enrrique shortly after patient arrival. HR 190's on arrival, pt with respiratory distress/markedly increased WOB. Slight wheeze with good air movement on exam, O2 sat 88% on room air, 96% on 2L nasal cannula. Denies chest pain. Told she had the flu 5 days ago, since then SOB but acutely worse this evening. EKG on arrival irregular wide complex tachycardia rate 190's. LBBB, not present on prior EKG. Sgarbossa negative; would not treat as occlusive IN. CXR not severely volume overloaded and pt with mild LE edema. Discussed with pt and son at bedside code status; she states DNR/DNI, does not want shock/cardioversion/etc. Will treat with 150mg IV amio followed by gtt if responsive. HR improved to 120's after amio bolus. Repeat EKG clear afib with LBBB, bedside echo with no large pericardial effusion or significant RV dilation. Started on BiPAP for respiratory distress, 03/06, with marked improvement in WOB. Record review shows history of afib on warfarin and atenolol, mitral valve replacement, CAD, HTN, asthma, T2DM, CKD. Labs significant for initial troponin in normal range, BNP elevated in 6000's (most recent prior here in 3000s) and PT elevated at 7.0 (will hold warfarin). Discussed with [facility] cardiology Dr. Brooks; advised continuing amio gtt. Likely transfer to [facility]; would like us to attempt to wean off biPAP as could then go to the floor. On reassessment BP softer, MAPs mid 60's. WOB improved on biPAP. Will trial off biPAP and see how she does; may need to cut back on amio gtt. HR now consistently 110's-130's. 1 hour repeat troponin unchanged. Pt did not tolerate being off biPAP. Placed back on. BP good MAP 70's; amio continued at 1mg/min. Overnight physician aware of patient condition and ED course. Due to a high probability of clinically significant, life threatening deterioration, the patient required my highest level of preparedness to intervene emergently and I personally spent this critical care time directly and personally managing the patient. This critical care time included obtaining a history; examining the patient; pulse oximetry; ordering and review of studies; arranging urgent treatment with development of a management plan; evaluation of patient's response to treatment; frequent reassessment; and, discussions with other providers. This critical care time was performed to assess and manage the high probability of imminent, life-threatening deterioration that could result in multi-organ failure. It was exclusive of separately billable procedures and treating other patients? Time Spent with Patient Time spent in critical care(minutes): 35 Time Spent Included: Coordination of care, Chart review, Documenting critically ill care, Time at immediate bedside, Discussing critically ill care with other medical staff and Discussing Hx and/or treatment with family
[2024-08-13 21:23] LABS: PTT Activated 41.1 sec (20.6-30.2); Prothrombin Time 61.1 sec (9.1-11.1)
[2024-08-13] MEDS: Amiodarone in Dextrose 360 MG/200 ML BAG 33.333 MG IV INF (21:23)
[2024-08-13 21:31] LABS: ALT 29 U/L (14-59); AST 33 U/L (15-37); Albumin 4.4 g/dL (3.4-5.0); Alkaline Phosphatase 94 U/L (46-116); Anion Gap 15.3 mmol/L (3-11); BUN 49 mg/dL (7-18); Bilirubin, Total 1.3 mg/dL (0.2-1.0); CO2 23.7 mmol/L (21.0-32.0); CREATININE 1.5 mg/dL (0.55-1.02); Calcium 9.6 mg/dL (8.5-10.1); Chloride 98 mmol/L (98-107); Estimated GFR 33.94 (mL/min/1.73m2); Glucose 260 mg/dL (74-106); Magnesium 2.6 mg/dL (1.8-2.4); NT-proBNP 6884 pg/mL (<300); Potassium 4.8 mmol/L (3.5-5.1); Sodium 137 mmol/L (136-145); Total Protein 8.5 g/dL (6.4-8.2); Troponin I 39 ng/L (<or=51)
[2024-08-13] MEDS: Albuterol/Ipratropium 3 ML UPD VIAL UPD (21:39)
--- NOTE | 2024-08-13 22:00 | DI.VRAD_ITS ---
PROCEDURE INFORMATION: Exam: XR Chest Exam date and time: 08/13/2024 9:08 PM Age: 84 years old Clinical indication: Shortness of breath and other: Tachycardia; Prior surgery; Surgery date: 6+ months; Surgery type: Mitral valve replacement TECHNIQUE: Imaging protocol: Radiologic exam of the chest. Views: 1 view. COMPARISON: XR PORTABLE CHEST AP POST LINE 03/25/2024 6:11 AM FINDINGS: Lungs: Patchy airspace opacities may represent atelectasis or edema, [id number]-[id number]-vbux-left. Pleural spaces: Unremarkable. No pleural effusion. No pneumothorax. Heart/Mediastinum: The heart demonstrates diffuse enlargement. Prosthetic heart valve noted. Left chest drain noted. Bones/joints: Sternotomy wires are intact. Other findings: Small left effusion. IMPRESSION: 1. Patchy airspace opacities may represent atelectasis or edema, [id number]-[id number]-[id number]-left. 2. Small left effusion. Dictated and Authenticated by: Tawana Balderas MD. Orderin Enrrique Mejia MD
[2024-08-13 22:10] LABS: COVID-19 PCR Negative (Negative); Influenza A PCR Negative (Negative); Influenza B PCR Negative (Negative); RSV PCR Negative (Negative)
--- NOTE | 2024-08-13 22:10 | W.EDPROG ---
Date of service: 08/13/24 Time of Service: 21:10 Medical Decision Making Quality:SDOH Health Related Social Needs: No Data to Display Discharge Plan Discharge Details Chief Complaint: Arrhythmia Primary Care Provider: Mell Cueto ED Provider: Jackie Daniels Home Meds and New Rx's Prescriptions: No Action albuterol sulfate 2.5 mg/0.5 mL solution for nebulization 5 mg inhalation Q4H zolpidem 5 mg tablet 5 mg PO QHS fluticasone propionate [Flonase Allergy Relief] 50 mcg/actuation spray,suspension 2 spray intranasal DAILY Rx Instructions: administer into each nostril fluticasone furoate 50 mcg/actuation blister with device 1 inh inhalation ONCE atenolol 50 mg tablet 50 mg PO QAM Patient Comments: QPM per pt Jardiance 25 mg tablet 25 mg PO DAILY ipratropium-albuterol 0.5 mg-3 mg(2.5 mg base)/3 mL solution for nebulization 3 ml INHALATION QID Patient Comments: INHALE 3 MLS 4 TIMES A DAY BY NEBULIZATION ROUTE albuterol sulfate [ProAir HFA] 90 mcg/actuation Hfa Aerosol Inhaler 2 puff inhalation QID PRN PRN furosemide 80 mg tablet 80 mg PO QAM Patient Comments: TK 1 T PO QD cetirizine 10 mg tablet 10 mg PO QAM Patient Comments: TK 1 T PO D PRN cholecalciferol (vitamin D3) [Vitamin D3] 25 mcg (1,000 unit) tablet 1,000 unit PO QAM Patient Comments: TAKE 1 TABLET BY MOUTH ONCE DAILY atorvastatin [Lipitor] 10 mg Tablet 10 mg PO QPM potassium chloride 10 mEq tablet,ER particles/crystals 10 meq PO QAM Patient Comments: TK 1 T PO QD warfarin 5 mg tablet 2.5 - 5 mg PO DIRECTED PRN Patient Comments: TK 1 T PO D UTD Rx Instructions: 2.5 M/ - 5 all other days alendronate 70 mg tablet 70 mg PO DIRECTED Patient Comments: TK 1 T PO WEEKLY ON AN EMPTY STOMACH WITH BIG GLASS OF WATER DONT LIE DOWN FOR AN HOUR Rx Instructions: weekly losartan 50 mg tablet 50 mg PO DAILY Patient Comments: TAKE ONE TABLET BY MOUTH EVERY DAY POCUS Exam (ED) Limited Cardiac Exam DATE OF EXAM: 08/13/24 TIME OF EXAM: 21:10 PROVIDER THAT PERFORMED THE STUDY: Angie Stout REASON FOR EXAM: Dyspnea VISUALIZED STRUCTURES: Four Chambers VIEW OBTAINED: Apical 4-Chamber, Parasternal long-axis, Parasternal short-axis and Subxiphoid PERTINENT FINDINGS/IMPRESSION: No pericardial effusion and No RV dilation Exam complete
[2024-08-13 22:13] LABS: Source Nasopharynx
[2024-08-13 22:18] LABS: Prothrombin Time 65.9 sec (9.1-11.1)
[2024-08-13 22:21] LABS: INR 7.6 (0.9-1.1)
[2024-08-13 22:23] LABS: Troponin I 39 ng/L (<or=51)
[2024-08-13 22:32] LABS: BE (Venous) -4 mmol/L (-2-3); HCO3 (Venous) 21 mmol/L (23-28); O2 Sat (Venous) 97 %; TCO2 (Venous) 18 mmol/L (24-29); pCO2 (Venous) 34 mmHg (41-51); pH (Venous) 7.39 (7.31-7.41); pO2 (Venous) 89 mmHg
[2024-08-13] MEDS: LORazepam 2 MG/ML VIAL 0.5 MG IVP (23:51)
[2024-08-13] MEDS: Amiodarone in Dextrose 360 MG/200 ML BAG 33.3 MG IV INF (23:52)
[2024-08-14] VITALS (46 sets, daily range): BP systolic 82–141; BP diastolic 29–81; PULSE 66–118; RESP 10–29; O2SAT 92–97
--- NOTE | 2024-08-14 00:23 | DI.VRAD_ITS ---
PROCEDURE INFORMATION: Exam: CT Chest Without Contrast; Diagnostic Exam date and time: 08/13/2024 11:56 PM Age: 84 years old Clinical indication: Shortness of breath; Prior surgery; Surgery date: 6+ months; Surgery type: Reva valve replacement; Eval SOB TECHNIQUE: Imaging protocol: Diagnostic computed tomography of the chest without contrast. 3D rendering (Not supervised by radiologist): MIP and/or 3D reconstructed images were created by the technologist. Radiation optimization: All CT scans at this facility use at least one of these dose optimization techniques: automated exposure control; mA and/or kV adjustment per patient size (includes targeted exams where dose is matched to clinical indication); or iterative reconstruction. COMPARISON: CR XR PORTABLE CHEST AP 08/13/2024 9:08 PM FINDINGS: Thyroid: No thyroid lesions. No thyroid enlargement. Lungs: Patchy diffuse nodular airspace opacities may represent pneumonia more prominent in upper lobes. Calcified bronchial and tracheal wall. Pleural spaces: Unremarkable. No pneumothorax. No pleural effusion. Heart: The heart demonstrates diffuse enlargement. Coronary arteries: Coronary arterial atherosclerotic calcifications are present. Lymph nodes: No axillary adenopathy. Vasculature: Severe atherosclerotic calcifications of the thoracic aorta. Bones/joints: Sternotomy wires are intact. Chronic compression fracture at the superior endplate of L1. Soft tissues: Soft tissues are unremarkable as visualized. IMPRESSION: Patchy diffuse nodular airspace opacities may represent pneumonia more prominent in upper lobes. Chronic noncritical findings as described above. Dictated and Authenticated by: Tawana Balderas MD. Orderin Enrrique Mejia MD
[2024-08-14] MEDS: DOXYCYCLINE 100 MG in Normal Saline 100 ML IVPB (00:33)
[2024-08-14 00:40] LABS: Troponin I 70 ng/L (<or=51)
--- NOTE | 2024-08-14 02:39 | ED.PROG_ITS ---
Date of service: 08/14/24 Time of Service: 02:40 Medical Decision Making Patient was signed out to me pending potential transfer to [facility]. [facility] did call back and Dr. Brooks requested a CT scan. CT scan was ordered and showed patchy diffuse nodular airspace opacities representing pneumonia in the upper lobes. No acute process otherwise. Out of an abundance of precaution, doxycycline was added. She has a history of allergy to penicillin, and I do not think it be prudent to start any QT prolonging medications like bautista quinolones. During the transition time at signout heart rate did improve and transition to the 80s. Blood pressure remains slightly variable. She oscillates between the 1 teens systolic, and occasionally will drop down to the mid to high 80s while resting however this does not appear to be persistent. During these transient drop she does not have any reflex tachycardia. She remains afebrile. At this time her blood pressure remains stable, currently 103/64. Did contact [facility], and discussed the case again with them, discussed the case with Dr. Brooks and Dr. Bolaños. They agree on transfer. Patient will be transferred via diplomatic interpreter/translator. I have extensively reviewed the treatment plan with the patient. I have addressed all patient concerns at this time. I have also discussed the plan with the admitting physician and they agree with the current assessment and plan and have agreed to assume responsibility for the patient. All parties demonstrate verbal understanding and agreement with our assessment and plan at this time. The documentation in this chart was dictated using [employer] dictation software. Please excuse any dictation errors. FINDINGS: Thyroid: No thyroid lesions. No thyroid enlargement. Lungs: Patchy diffuse nodular airspace opacities may represent pneumonia more prominent in upper lobes. Calcified bronchial and tracheal wall. Pleural spaces: Unremarkable. No pneumothorax. No pleural effusion. Heart: The heart demonstrates diffuse enlargement. Coronary arteries: Coronary arterial atherosclerotic calcifications are present. Lymph nodes: No axillary adenopathy. Vasculature: Severe atherosclerotic calcifications of the thoracic aorta. Bones/joints: Sternotomy wires are intact. Chronic compression fracture at the superior endplate of L1. Soft tissues: Soft tissues are unremarkable as visualized. IMPRESSION: Patchy diffuse nodular airspace opacities may represent pneumonia more prominent in upper lobes. Chronic noncritical findings as described above. Thank you for allowing us to participate in the care of your patient. Dictated and Authenticated by: Tawana Balderas MD 08/14/2024 12:23 AM Eastern Time ([place] & [place]) Quality:SDOH Health Related Social Needs: No Data to Display Critical Care Time Critical Care Time Critical Care Time: Yes Total Critical Care Time: 45 Attestation: Upon my evaluation, this patient had a high probability of imminent or life- threatening deterioration, which required my direct attention, intervention, and personal management. I have personally provided 45 minutes of critical care time exclusive of time spent on separately billable procedures. Time includes review of laboratory data, radiology results, discussion with consultants, and monitoring for potential decompensation. Interventions were performed as documented. Discharge Plan Disposition Patient Disposition: Transfer-Acute Inpatient Care Specific Acute Inpt Facility: [facility] Discharge Details Clinical Impression: Supratherapeutic INR, Atrial fibrillation with rapid ventricular response, Acute respiratory failure, Community acquired bacterial pneumonia Primary Care Provider: Mell Cueto ED Provider: Shelton Connell Home Meds and New Rx's Prescriptions: No Action albuterol sulfate 2.5 mg/0.5 mL solution for nebulization 5 mg inhalation Q4H zolpidem 5 mg tablet 5 mg PO QHS fluticasone propionate [Flonase Allergy Relief] 50 mcg/actuation spray,suspension 2 spray intranasal DAILY Rx Instructions: administer into each nostril fluticasone furoate 50 mcg/actuation blister with device 1 inh inhalation ONCE atenolol 50 mg tablet 50 mg PO QAM Patient Comments: QPM per pt Jardiance 25 mg tablet 25 mg PO DAILY ipratropium-albuterol 0.5 mg-3 mg(2.5 mg base)/3 mL solution for nebulization 3 ml INHALATION QID Patient Comments: INHALE 3 MLS 4 TIMES A DAY BY NEBULIZATION ROUTE albuterol sulfate [ProAir HFA] 90 mcg/actuation Hfa Aerosol Inhaler 2 puff inhalation QID PRN PRN furosemide 80 mg tablet 80 mg PO QAM Patient Comments: TK 1 T PO QD cetirizine 10 mg tablet 10 mg PO QAM Patient Comments: TK 1 T PO D PRN cholecalciferol (vitamin D3) [Vitamin D3] 25 mcg (1,000 unit) tablet 1,000 unit PO QAM Patient Comments: TAKE 1 TABLET BY MOUTH ONCE DAILY atorvastatin [Lipitor] 10 mg Tablet 10 mg PO QPM potassium chloride 10 mEq tablet,ER particles/crystals 10 meq PO QAM Patient Comments: TK 1 T PO QD warfarin 5 mg tablet 2.5 - 5 mg PO DIRECTED PRN Patient Comments: TK 1 T PO D UTD Rx Instructions: 2.5 M/Th - 5 all other days alendronate 70 mg tablet 70 mg PO DIRECTED Patient Comments: TK 1 T PO WEEKLY ON AN EMPTY STOMACH WITH BIG GLASS OF WATER DONT LIE DOWN FOR AN HOUR Rx Instructions: weekly losartan 50 mg tablet 50 mg PO DAILY Patient Comments: TAKE ONE TABLET BY MOUTH EVERY DAY
== END 2024-08-14 04:18 | disposition short-term general hospital (02) ==
PROVIDERS: Nurse Practitioner Family; Emergency Provider Student in an Organized Health Care Education/Training Program; PCP Family Medicine
DX: J18.9 Pneumonia, unspecified organism; I48.20 Chronic atrial fibrillation, unspecified; J96.00 Acute respiratory failure, unspecified whether with hypoxia or hypercapnia; R05.9 Cough, unspecified; E11.69 Type 2 diabetes mellitus with other specified complication; I25.10 Atherosclerotic heart disease of native coronary artery without angina pectoris; R00.0 Tachycardia, unspecified
CPT/HCPCS: 00123; 71250; 80053; 82805; 87637; 93005; 93308; 94640; 96365; 96375; 99291; 71045; 83735; 83880; 84484; 85025; 85610; 85730; 93010; J0282; J0283; J2060; J7620

== ENCOUNTER 2024-10-13 16:05 | Inpatient (IN) | payer MEDICARE, MEDICAID, SELFPAY ==
[2024-10-13] VITALS (58 sets, daily range): BP systolic 66–154; BP diastolic 27–79; PULSE 57–126; RESP 12–28; TEMP 35.9–36.6; O2SAT 93–100
--- NOTE | 2024-10-13 16:00 | RT.EKG_ITS ---
APPROVED REPORT Exam: Resting ECG Reason for Exam: short of breath, rapid a-fib Patient Location: E HR:115 bpm ECG Measurements Heart Rate 115 AXIS VA [id number] P [id number] QRSd 137 QRS -56 QT 399 T 126 QTc 553 Conclusion Atrial fibrillation...? atrial activity Left bundle branch block...QRSd>120, broad/notched R
--- NOTE | 2024-10-13 16:27 | ED.GENADUL_ITS ---
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 HPI Narrative: Patient presents to the emergency department stating that she left the skilled nursing yesterday and started getting very fatigued short of breath specially when she ambulates feel little dizzy. Patient has a history of congestive heart failure atrial fibrillation and a mitral valve replacement who was admitted mid- August at [facility] after she had an episode of rapid A- fib and ended up in pulmonary edema and was sent here where she had rate control CHF stabilization and had an echo which showed an ejection fraction baseline of 25% with systolic and diastolic dysfunction. She says she went to the skilled nursing and the only medication that she takes for rate control which she states is atenolol reports mild lower extremity swelling and denies any chest pain. During her hospitalization at [facility] she had a car to catheterization which showed normal coronary arteries. Related Data Home Medications ?Medication ?Instructions ?Recorded ?Confirmed albuterol sulfate 90 mcg/actuation 2 puff inhalation QID PRN PRN 09/27/19 08/13/24 aerosol inhaler (ProAir HFA) alendronate 70 mg tablet 70 mg PO DIRECTED 09/27/19 08/13/24 atorvastatin 10 mg tablet (Lipitor) 10 mg PO QPM 09/27/19 08/13/24 cetirizine 10 mg tablet 10 mg PO QAM 09/27/19 08/13/24 cholecalciferol (vitamin D3) 25 1,000 unit PO QAM 09/27/19 08/13/24 mcg (1,000 unit) tablet (Vitamin D3) potassium chloride 10 mEq 10 meq PO QAM 09/27/19 08/13/24 tablet,extended release(part/cryst) warfarin 5 mg tablet 2.5 - 5 mg PO DIRECTED PRN 09/27/19 08/13/24 empagliflozin 25 mg tablet 25 mg PO DAILY 01/01/24 08/13/24 (Jardiance) losartan 50 mg tablet 50 mg PO DAILY 02/18/24 08/13/24 albuterol sulfate 2.5 mg/0.5 mL 5 mg inhalation Q4H 07/06/24 08/13/24 solution for nebulization fluticasone furoate 50 1 inh inhalation ONCE 07/06/24 08/13/24 mcg/actuation blister powder for inhalation fluticasone propionate 50 2 spray intranasal DAILY 07/06/24 08/13/24 mcg/actuation nasal spray,suspension (Flonase Allergy Relief) zolpidem 5 mg tablet 5 mg PO QHS 07/06/24 08/13/24 ipratropium 0.5 mg-albuterol 3 mg 3 ml inhalation QID 08/13/24 08/13/24 (2.5 mg base)/3 mL nebulization soln Allergies Allergy/AdvReac Type Severity Reaction Status Date / Time peanut Allergy Severe Anaphylaxis Verified 08/13/24 20:56 Penicillins Allergy Unknown Pt thinks Verified 08/13/24 20:56 she gets a rash aminophylline Allergy unknown Verified 08/13/24 20:56 digoxin Allergy unknown Verified 08/13/24 20:56 enalaprilat (From Vasotec) Allergy unknown Verified 08/13/24 20:56 tree and shrub pollen Allergy Itching Verified 08/13/24 20:56 paper tape Allergy Intermediate Skin Rash, Uncoded 08/13/24 20:56 red and sore General Stated Complaint: RespSymp SANDRA: 2 Review of Systems Narrative: Review of Systems: Constitutional: No fevers, chills, sweats Eye: No recent visual problems ENT: No ear pain, nasal congestion, sore throat Cardiovascular: No Chest pain, Gastrointestinal: No nausea, vomiting, diarrhea Genitourinary: No hematuria Durga/Lymph: Negative for bruising tendency, swollen lymph glands Endocrine: Negative for excessive thirst, excessive hunger Musculoskeletal: No back pain, neck pain, joint pain, muscle pain, decreased range of motion Integumentary: No rash, pruritus, abrasions Neurologic: Alert & oriented X 4 Psychiatric: No anxiety, depression Exam Narrative Exam Narrative: Exam; vitals signs as reported tachycardic and hypotensive ill appearing Constitutional; In no acute distress, afebrile despite her abnormal vital signs General: cooperative, , uncomfortable and no acute distress HEENT: Head: normal to inspection, no palpable skull fracture and normocephalic atraumatic Eyes: : appearance normal, both eyes and all related structures EOM intact bilaterally Pupils: PERRL : conjunctiva normal Direct ophthalmoscopy: normal light reflex, normal conjunctiva, normal visual acuity Ears: Normal TM, normal external canal Nose: normal no rhinorreha Neck 4 cm JVD Neck: normal visual inspection, full ROM and no lymphadenopathy Chest: normal inspection of the chest Respiratory : Bilateral rales chest in the lung bases Cardio Rate: Tachycardic irregularly irregular rate and rhythm: 2+ lower extremity swelling GI : normal to inspection, normal bowel sounds, soft, non tender, non distended, no organomegaly Back/Spine/ no CVA tenderness Thoracic/Lumbar Spine: no tenderness or deformities Skin no rashes or lesions Neuro: patient alert oriented x 4 and no meningeal signs, Cranial Nerves: CN's II-XI intact bilaterally, Cognition: normal cognition, Speech: speech normal, Gait: normal gait, Depp tendon reflexes normal 2+ muscle strength 5/5 bilaterally Extremities, no edema, full range of motion, normal strength : normal Rectal: Course Patient presents to the emergency department in very rapid A-fib with a heart rate between 155 and 177 and initial blood pressure of 60/40. Surprisingly the patient is not fully in pulmonary edema. POCUS ultrasound to rule out hypovolemia versus fluid congestion. [id number] ultrasound rapid ultrasound stroke protocol was done showing a very tachycardic heart with with low ejection fraction a noncollapsible plump inferior vena cava and some B-lines in the bases but no significant interstitial syndrome. With this it is interesting the patient does not have a rate control medication. The set of cardioversion slow 5 mg of IV Cardizem were given immediately with improvement of her blood pressure to 80/40. After reviewing the medical records extensively we found that the department the patient was prescribed amiodarone which she did not take at the skilled nursing and at home was confused taking the back her atenolol. Reevaluation(s) Initial Evaluation: As reported above Time: 16:30 Reevaluation: After the patient was giving 150 mg of IV amiodarone her blood pressure has improved to 100/70 with a heart rate of 85. I have called [facility] and confirmed that she was supposed to be on amiodarone at discharge which she did not get at the skilled nursing nor at home probably causing her to back into rapid A-fib and cardiogenic shock. Spoke with Dr. Devonte Lara sas programmer analyst who at this time is feels the patient should be admitted here to the ICU continue with amiodarone but there is no plan for her to be transferred at this time to [facility]. I have spoken with the hospitalist who understands and agrees knowing the fact the patient has poor prognosis due to her cardiomyopathy. Time: 18:35 Reevaluation #2: Patient continues to improve and she will admitted by the hospitalist to the ICU here at [facility] Consultations Consultation #1: Dr. Devonte Lara at [facility] cardiology Time: 18:20 Consultation #2: Dr. Felipe Pearson hospitalist physician at our hospital Time: 17:55 Vital Signs Vital signs: Vital Signs Temperature 35.9 C L 10/13/24 16:08 Pulse 126 H 10/13/24 16:08 Respiratory Rate 28 H 10/13/24 16:08 Blood Pressure 70/36 L 10/13/24 16:08 Pulse Oximetry 93 10/13/24 16:08 Temperature 35.9 C L 10/13/24 16:08 Temperature Source Temporal Artery Scan 10/13/24 16:08 Pulse 126 H 10/13/24 16:08 Respiratory Rate 28 H 10/13/24 16:08 Blood Pressure 70/36 L 10/13/24 16:08 Blood Pressure Position Sitting 10/13/24 16:08 Pulse Oximetry 93 10/13/24 16:08 Oxygen Delivery Method Room Air 10/13/24 16:08 Oxygen Flow Rate 0 10/13/24 16:08 Comment unable to ascertain blood pressure 10/13/24 16:08 Medical Decision Making MDM: Summary: Patient presented to the emergency department after she was discharged from [facility] who has a history of heart failure with reduced ejection fraction and atrial fibrillation mitral valve replacement who was at [facility] in August when she came with rapid A-fib here to this hospital but at time was hypotensive and acute pulmonary edema and heart rate of 177 was sent there where they stabilized here did a catheterization which showed clean coronaries her rate was controlled and she was discharged to the skilled nursing with a prescription for amiodarone which she did not receive and then was discharged home 2 days ago which she started feeling ill and comes today with a heart rate between 155 177 with a blood pressure of 60/30 and [id number] ultrasound echocardiogram showed cardiogenic shock. As her EF was reduced primarily again because of the rapid heart rate which was reduced initially with just a small dose of Cardizem and after we found out that she was supposed to be on amiodarone amiodarone was given 150 mg with reduction of her heart rate to the 70s and 80s and improvement of blood pressure to 110/70. I spoke with cardiology at [facility] who really did not have anything to offer and that no beds and they recommended we reinitiate the amiodarone and monitor in the ICU for rate control to improve her ejection fraction. But after ultrasound thorax showed just a scant sonographic rales in the bases but no significant interstitial syndrome and her oxygen saturation remained at 97% on room air. Chest x-ray confirmed the sonographic findings Data Review Analysis All the data on this patient was reviewed by me including laboratory and imaging studies as well as bedside studies performed by me Independent review of Studies Imaging Chest x-ray and POCUS as reported above Lab: Labs which included a negative troponin and a BNP which was high Risk Stratification: Patient with recurrent rapid A-fib causing cardiogenic shock who will admit to the unit for rate control to improve her systolic function which baseline is 25% Differential Diagnosis: 1. Cardiogenic shock 2. Rapid atrial fibrillation 3. Acute coronary syndrome 4. Septic shock 5. Consultants: Have consulted with the hospitalist Dr. Felipe Mauricio and with Dr. Alana Lara sas programmer analyst at [facility] Shared disposition: Patient and son were send disposition and agree that she will need to be admitted in the ICU Impression: Medical Records Medical records reviewed: Yes I reviewed the patient's medical records. Lab Data Lab results reviewed: Yes I reviewed the patient's lab results. ECG Data Attestation: I personally reviewed and interpreted this ECG (s) as follows: Prior ECG tracings: available for review Interpretation: Atrial fibrillation with rapid ventricular response with a heart rate of [address]-T changes left bundle branch block she has no previous EKGs Quality:[facility] Health Related Social Needs: 2 No Data to Display Critical Care Time Critical Care Time Critical Care Time: Yes Total Critical Care Time: 50 Attestation: 50 minutes of critical care time excluding from procedures due to the pending deterioration of her cardiovascular status PFSH All Active Problems Anemia (Chronic) Acute kidney injury superimposed on CKD (Acute) Hypothyroid (Chronic) Acute heart failure with reduced ejection fraction (HFrEF, <= 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 (Acute) Cardiomyopathy (Acute) Atrial fibrillation with rapid ventricular response (Acute) Cardiogenic shock (Acute) Heart failure with reduced ejection fraction (Acute) Iron refractory iron deficiency anemia (Acute) Nonhealing nonsurgical wound with fat layer exposed (Acute) Wound of left lower extremity (Acute) Anticoagulated on Coumadin (Acute) Lesion of skin of nose (Acute) Conductive hearing loss in right ear (Acute 02/23/15) Mixed conductive and sensorineural hearing loss of right ear with restricted hearing of left ear (Acute 07/25/16) Sensorineural hearing loss (SNHL) of left ear with restricted hearing of right ear (Acute 07/25/16) Sensorineural hearing loss, bilateral (Acute 02/25/17) Medical History Aortic stenosis, moderate Severe tricuspid regurgitation Abscess Bunion Memory deficit Elevated TSH Type 2 diabetes mellitus Hypocalcemia CKD (chronic kidney disease) Facial skin lesion Hyperlipidemia Asthma CAD (coronary artery disease) A-fib HTN (hypertension) Diabetes mellitus Lactose intolerance Osteoporosis Diverticulitis Allergic rhinitis Hiatal hernia Mitral valve stenosis Insomnia Leg cramps Surgical History Status post excisional debridement (~02/2024) Left Leg Mitral valve replaced History of bladder suspension procedure History of tonsillectomy H/O adenoidectomy Family History Father , d. 60 Throat cancer Mother , d. 80 Heart disease Social History Smoking/Tobacco Use Status: Never Smoking risk assessment performed?: Yes Alcohol Intake: never Drug use: Never Substance use type: does not use Household members: none Housing: other Number of Children: 4 Do you feel safe at home: Yes Do you feel safe in your relationship?: Yes Additional Social history: . lives alone in [address]. son lives nearby POCUS Exam (ED) Limited Cardiac Exam DATE OF EXAM: 10/13/24 TIME OF EXAM: 16:40 PROVIDER THAT PERFORMED THE STUDY: Dion Bojorquez IS THIS A REPEAT EXAM DURING THIS ENCOUNTER: no REASON FOR EXAM: Dyspnea and Hypotension VISUALIZED STRUCTURES: Four Chambers, Left atrium, Left ventricle, LVOT, Right atrium, Right ventricle, Aortic valve, Mitral valve, Interventricular septum and IVC VIEW OBTAINED: Apical 4-Chamber, Parasternal long-axis, Parasternal short-axis and Subxiphoid PERTINENT FINDINGS/IMPRESSION: LV dysfunction and Plethoric IVC Exam complete (left ventricular decreased EF tachycardic, HFrEF) [place] Exam DATE OF EXAM: 10/13/24 TIME OF EXAM: 16:30 PROVIDER THAT PERFORMED THE STUDY: Dion Bojorquez IS THIS A REPEAT EXAM DURING THIS ENCOUNTER: No REASON FOR EXAM: Hypotension and Shock VISUALIZED STRUCTURES: Aorta, Bladder, Cardiac Four Chambers, Heart, Inferior Vena Cava, Lung/left side, Lung/right side and Bravo's pouch PERTINENT FINDINGS/IMPRESSION: Abnormal IVC, (dilated not collapsible > 2 cms) details of abnormalities: dilated not collapsible > 2 cms , Global cardiac hypokinesis (moderate LV funtion, prosthetic MV normal, rapid HR with decreased CO) and Other impression: Reduced EF rapid HR afib DIFFERENTIAL DIAGNOSES: B profile in both bases Echocardiography/Transthoracic Limited Exam: Exam Complete (high HR HFrEF plethoric IVC cardiogenic shock due to rapid HR afib ) Chest Limited Exam: Exam Complete (bibasilar B lines interstitial syndrome) Abdominal Limited Exam: Exam Complete (normal) Retroperitoneal Limited Exam: Exam Complete (normal) Vital Signs & Lab Results Vital Signs Most Recent Vital Signs: Most Recent Vital Signs Temp Pulse Resp BP Pulse Ox 36.6 C 73 20 82/33 L 97 10/14/24 09:50 10/14/24 13:22 10/14/24 13:22 10/14/24 13:22 10/14/24 13:22 Point of Care Results Nursing Point of Care Results: 2 Finger Stick Blood Glucose 126 H (70 - 120) 10/14/24 07:52 Lab Results 10/13/24 16:30 10/14/24 05:30 Blood Type / Crossmatch: 2 No Data to Display Complete Blood Count: 2 White Blood Count 8.63 10^3/uL (4.4-10.8) 10/13/24 16:30 Red Blood Count 3.73 10^6/uL (3.93-5.22) L 10/13/24 16:30 Hemoglobin 11.0 g/dL (11.2-15.7) L 10/13/24 16:30 Hematocrit 33.7 % (36.0-46.0) L 10/13/24 16:30 Platelet Count 268 10^3/uL (130-400) 10/13/24 16:30 Complete Metabolic Panel: 2 Sodium 139 mmol/L (136-145) 10/14/24 05:30 Potassium 3.9 mmol/L (3.5-5.1) 10/14/24 05:30 Chloride 102 mmol/L (98-107) 10/14/24 05:30 Carbon Dioxide 33.2 mmol/L (21.0-32.0) H 10/14/24 05:30 BUN 30 mg/dL (7-18) H 10/14/24 05:30 Creatinine 1.0 mg/dL (0.55-1.02) 10/14/24 05:30 Est GFR (CKD-EPI 2020) 55.21 (mL/min/1.73m2) 10/14/24 05:30 Magnesium 2.3 mg/dL (1.8-2.4) 10/14/24 05:30 Calcium 8.8 mg/dL (8.5-10.1) 10/14/24 05:30 Albumin 3.6 g/dL (3.4-5.0) 10/13/24 16:30 Glucose 134 mg/dL (74-106) H 10/14/24 05:30 Liver Function Panel: 2 Alanine Aminotransferase (ALT/SGPT) 34 U/L (14-59) 10/13/24 16: 30 Aspartate Amino Transf (AST/SGOT) 35 U/L (15-37) 10/13/24 16:30 Coagulation Panel: 2 INR International Normalized Ratio 1.6 (0.9-1.1) H 10/14/24 05 :30 Prothrombin Time 15.8 sec (9.1-11.1) H 10/14/24 05:30 Cardiac Panel: 2 Troponin I 30 ng/L (<or=51) 10/13/24 NT-Pro-B Natriuret Pep 3526 pg/mL (<300) H 10/13/24 Arterial Blood Gas: 2 No Data to Display Venous Blood Gas: 2 No Data to Display Pancreas Panel: 2 No Data to Display Thyroid Panel: 2 Thyroid Stimulating Hormone (TSH) 20.31 uIU/mL (0.36-3.74) H 10/14/24 05:30 Infectious Disease: 2 No Data to Display Blood Cultures: 2 No Data to Display Toxicology Panel: 2 No Data to Display
--- NOTE | 2024-10-13 16:30 | DI.RAD_ITS ---
Exam(s) XR PORTABLE CHEST AP EXAM: XR PORTABLE CHEST AP CLINICAL HISTORY: SOB. TECHNIQUE: 2D digital imaging was performed. COMPARISON: CR,XR XR PORTABLE CHEST AP POST LINE from 03/25/2024 CR,XR XR PORTABLE CHEST AP from 08/13/[address] CHEST WO from 08/13/2024 FINDINGS: Single AP portable view. Again noted are sternotomy wires, cardiomegaly, and a single prosthetic cardiac mitral valve. The mediastinum is not widened There is a mild pulmonary venous hypertension pattern but no airspace pulmonary edema nor obvious ple ural effusions. IMPRESSION: Sternotomy. Cardiomegaly. Prosthetic mitral valve. Pulmonary venous hypertension pattern. No mandi airspace pulmonary edema. DATA REPOSITORY: RADIATION DOSE DELIVERED:
[2024-10-13] MEDS: dilTIAZem 25 MG/5 ML VIAL 5 MG IVP (17:06)
[2024-10-13 17:25] LABS: Abs Immature Grans 0.08 10^3/uL (0.0-0.06); Absolute Basophil Count 0.01 10^3/uL (0.0-0.2); Absolute Lymphocyte Count 0.14 10^3/uL (1.2-3.4); Basophils % 0.1 %; HCT 33.7 % (36.0-46.0); Immature Grans % 0.9 %; Lymphocytes % 1.6 %; MCH 29.5 pg (27.0-33.0); MCHC 32.6 % (32.0-36.0); MCV 90 fL (80-95); Monocytes % 1.2 %; Neutrophils % 96.2 %; Platelet Count 268 10^3/uL (130-400); RBC 3.73 10^6/uL (3.93-5.22); RDW 16.6 % (11.7-14.6); RDW-SD 54.9 fL; WBC 8.63 10^3/uL (4.4-10.8)
[2024-10-13 17:34] LABS: INR 1.5 (0.9-1.1); Prothrombin Time 14.9 sec (9.1-11.1)
[2024-10-13 17:54] LABS: ALT 34 U/L (14-59); AST 35 U/L (15-37); Albumin 3.6 g/dL (3.4-5.0); Alkaline Phosphatase 146 U/L (46-116); Anion Gap 12.9 mmol/L (3-11); BUN 27 mg/dL (7-18); Bilirubin, Total 0.7 mg/dL (0.2-1.0); CO2 26.1 mmol/L (21.0-32.0); CREATININE 1.4 mg/dL (0.55-1.02); Calcium 8.9 mg/dL (8.5-10.1); Chloride 98 mmol/L (98-107); Estimated GFR 36.87 (mL/min/1.73m2); Glucose 323 mg/dL (74-106); NT-proBNP 3526 pg/mL (<300); Potassium 3.4 mmol/L (3.5-5.1); Sodium 137 mmol/L (136-145); Total Protein 7.4 g/dL (6.4-8.2); Troponin I 28 ng/L (<or=51)
[2024-10-13 18:14] LABS: Troponin I 27 ng/L (<or=51)
[2024-10-13] MEDS: Amiodarone 150 MG/3 ML VIAL IVP (19:52)
[2024-10-13] MEDS: DEXTROSE 5%-WATER 100 ML 600 ML (19:59)
[2024-10-13 20:39] LABS: Troponin I 30 ng/L (<or=51)
--- NOTE | 2024-10-13 21:27 | W.PM.HP.N ---
Date of service: 10/13/24 Time of Service: 20:07 Assessment and Plan Assessment and plan (1) Cardiogenic shock: Status: Acute Assessment and plan: Presented in cardiogenic shock. Stabilized after slowing heart rate. She has adequate fluid, with valvular disease I don't want to diurese her more. She should go to ICU for close monitoring. This appears to have been caused by never filling amiodarone after leaving rehab, resuming atenolol. (2) Atrial fibrillation with rapid ventricular response: Status: Acute Assessment and plan: Initially got diltiazem, did not continue given recently diagnosed HFrEF. Stable now on amiodarone, continue. (3) Acute heart failure with reduced ejection fraction (HFrEF, <= 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: Status: Acute Assessment and plan: She was tolerating MRA, SGLT2i for GDMT at [facility], resume these. Previously on losartan and atenolol but stopped at [facility]. Monitor closely. We reviewed rationale for all her medicaitons, which she doesn't like to be taking. She will need ongoing encouragement and teaching, home health will also help. Get palliative consult. (4) Type 2 diabetes mellitus: Assessment and plan: Last A1c well controlled wihtout medication other than empagliflozin. Monitor, ISS (5) Hypothyroid: Status: Chronic Assessment and plan: previously subclinical, now overt since starting amiodarone. TSH now about 5 weeks after starting. (6) Acute kidney injury superimposed on CKD: Status: Acute Assessment and plan: Cr was around 1 at discharge, now 1.4, likely secondary to hypotension. Follow. (7) Anticoagulated on Coumadin: Status: Acute Assessment and plan: Goal 2.5-3.5 with mechanical valve. She is below this, may have missed doses. Given 5mg now and follow daily. (8) Anemia: Status: Chronic Assessment and plan: Mild, likely CKD related, h/o iron deficiency that imrpoved. Current h/h above level at discharge from [facility]. History of Present Illness History of Present Illness Chief Complaint: sob Narrative: 84 yo F with history of mechanical mitral valve replacement on warfarin, severe TR, non-obstructive CAD, atrial fibrillation, HRrEF, CKD3, anemia, type 2 DM with A1c 6.7% and asthma who was recently discharged home from health and rehab after a prolonged admission at [facility] 08/14-09/09 for heart failure who presented with shortness of breath starting the afternoon of admission. She presented on 08/14 with profound fluid overload/CHF in setting of atrial fibrillation with RVR and was transferred to [facility] given her complexity. She was diuresed and had an echocardiogram that showed LVEF 20-25% and severe TR and moderate . She had a cardiac cath 08/21 that showed non-obstrucitve ASCVD. She had NSTEMI that was felt to be demand ischemia. She was started on amiodarone for rate control and atenolol stopped. She was changed from furosemide 80mg to 50mg torsemide daily and her discharge weight was 137lbs. Her TSH was high and she was started on levothyroxine. She was treated for pneumonia for 7 days during that admission as well. She transtioned to health and rehab for reconditioning after discharge. She felt well when she went home. She states she didn't have her new medications so she went back to her old mediations from her PCP, including atenolol. She continued to feel okay for a couple days but after lunch today she started feeling short of breath. No chest pain or palpitations or dizziness. She did feel a little generally weak and fatigued. No cough or cold symtpoms. No GI or symptoms. No bleeding. She went to see Dr. Cueto who sent her to the ED. In the ED she was hypotensive as low as 60s/30s and was in atrial fibrillation with RVR in 120s. POCUS showed poor filling, reduced LVEF, plump IVC. She was initially given 5mg of diltiazem which did slow her rate and improve her blood pressure and appearence. After clarification of her history, she was given 150mg amiodarone. She feels better now, less short of breath, but still tired. Review of Systems All systems reviewed & are unremarkable except as noted in HPI and below Cardiovascular Cardiovascular: Reports pedal edema (mild, but much better than when she was here before) Integumentary/Breasts Skin/Breast: Reports lesions (on nose, no change) PFSH All Active Problems (Updated 10/13/24 @ 21:56 by Felipe Cooper) Anemia (Chronic) Acute kidney injury superimposed on CKD (Acute) Hypothyroid (Chronic) Acute heart failure with reduced ejection fraction (HFrEF, <= 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 (Acute) Cardiomyopathy (Acute) Atrial fibrillation with rapid ventricular response (Acute) Cardiogenic shock (Acute) Heart failure with reduced ejection fraction (Acute) Iron refractory iron deficiency anemia (Acute) Nonhealing nonsurgical wound with fat layer exposed (Acute) Wound of left lower extremity (Acute) Anticoagulated on Coumadin (Acute) Lesion of skin of nose (Acute) Conductive hearing loss in right ear (Acute 02/23/15) Mixed conductive and sensorineural hearing loss of right ear with restricted hearing of left ear (Acute 07/25/16) Sensorineural hearing loss (SNHL) of left ear with restricted hearing of right ear (Acute 07/25/16) Sensorineural hearing loss, bilateral (Acute 02/25/17) Medical History (Updated 10/13/24 @ 21:56 by Felipe Cooper) Aortic stenosis, moderate Severe tricuspid regurgitation Abscess Bunion Memory deficit Elevated TSH Type 2 diabetes mellitus Hypocalcemia CKD (chronic kidney disease) Facial skin lesion Hyperlipidemia Asthma CAD (coronary artery disease) A-fib HTN (hypertension) Diabetes mellitus Lactose intolerance Osteoporosis Diverticulitis Allergic rhinitis Hiatal hernia Mitral valve stenosis Insomnia Leg cramps Surgical History Status post excisional debridement (~02/2024) Left Leg Mitral valve replaced History of bladder suspension procedure History of tonsillectomy H/O adenoidectomy Family History Father , d. 60 Throat cancer Mother , d. 80 Heart disease Social History (Updated 10/13/24 @ 21:47 by Felipe Cooper) Smoking/Tobacco Use Status: Never Smoking risk assessment performed?: Yes Alcohol Intake: never Drug use: Never Substance use type: does not use Household members: none Housing: other Number of Children: 4 Do you feel safe at home: Yes Do you feel safe in your relationship?: Yes Additional Social history: . lives alone in home on [address]. son lives nearby Meds Allergies and Home Medications Allergies Allergy/AdvReac Type Severity Reaction Status Date / Time peanut Allergy Severe Anaphylaxis Verified 08/13/24 20:56 Penicillins Allergy Unknown Pt thinks Verified 08/13/24 20:56 she gets a rash aminophylline Allergy unknown Verified 08/13/24 20:56 digoxin Allergy unknown Verified 08/13/24 20:56 enalaprilat (From Vasotec) Allergy unknown Verified 08/13/24 20:56 tree and shrub pollen Allergy Itching Verified 08/13/24 20:56 paper tape Allergy Intermediate Skin Rash, Uncoded 08/13/24 20:56 red and sore Home Medications ?Medication ?Instructions ?Recorded ?Confirmed ?Type albuterol sulfate 90 mcg/actuation 2 puff inhalation QID PRN PRN 09/27/19 08/13/24 History aerosol inhaler (ProAir HFA) alendronate 70 mg tablet 70 mg PO DIRECTED 09/27/19 08/13/24 History atorvastatin 10 mg tablet (Lipitor) 10 mg PO QPM 09/27/19 08/13/24 History cetirizine 10 mg tablet 10 mg PO QAM 09/27/19 08/13/24 History cholecalciferol (vitamin D3) 25 1,000 unit PO QAM 09/27/19 08/13/24 History mcg (1,000 unit) tablet (Vitamin D3) furosemide 80 mg tablet 80 mg PO QAM 09/27/19 08/13/24 History potassium chloride 10 mEq 10 meq PO QAM 09/27/19 08/13/24 History tablet,extended release(part/cryst) warfarin 5 mg tablet 2.5 - 5 mg PO DIRECTED PRN 09/27/19 08/13/24 History atenolol 50 mg tablet 50 mg PO QAM 11/13/21 08/13/24 History empagliflozin 25 mg tablet 25 mg PO DAILY 01/01/24 08/13/24 History (Jardiance) losartan 50 mg tablet 50 mg PO DAILY 02/18/24 08/13/24 History albuterol sulfate 2.5 mg/0.5 mL 5 mg inhalation Q4H 07/06/24 08/13/24 History solution for nebulization fluticasone furoate 50 1 inh inhalation ONCE 07/06/24 08/13/24 History mcg/actuation blister powder for inhalation fluticasone propionate 50 2 spray intranasal DAILY 07/06/24 08/13/24 History mcg/actuation nasal spray,suspension (Flonase Allergy Relief) zolpidem 5 mg tablet 5 mg PO QHS 07/06/24 08/13/24 History ipratropium 0.5 mg-albuterol 3 mg 3 ml inhalation QID 08/13/24 08/13/24 History (2.5 mg base)/3 mL nebulization soln Exam Narrative Exam Narrative: GEN: Alert and oriented x 4, pleasant and cooperative, gives linear history. No acute distress at rest. HEENT: Head atraumatic. Conjunctiva clear, no icterus. PEERL, EOMI. no rhinorrhea. MMM, OP benign. Neck is supple with no masses or lymphadenopathy, trachea midline LUNGS: CTAB with normal effort CV: RRR with no murmurs, gallops, or rubs. ABD: active bowel sounds, soft, nontender and nondistended. No masses. EXT: no cyanosis, clubbing, or edema MSK: No joint redness or swelling NEURO: CN 2-12 grossly intact. Normal movement of 4 extremities. Normal speech and coordination. No tremor SKIN: No rashes or open wounds. PSYCH: normal mood and affect Results Imaging Chest x-ray: report reviewed (Sternotomy. Cardiomegaly. Prosthetic mitral valve. Pulmonary venous hypertension pattern. No mandi airspace pulmonary edema.) and image reviewed EKG: report reviewed and image reviewed (atrial fibrillation with rate 115, LBBB, no clear ischemic changes) Labs 10/13/24 16:30 10/13/24 16:30 Labs: Laboratory Results - last 24 hr 10/13/24 10/13/24 10/13/24 16:30 17:30 19:35 WBC 8.63 RBC 3.73 L Hgb 11.0 L Hct 33.7 L MCV 90 MCH 29.5 MCHC 32.6 RDW 16.6 H Plt Count 268 MPV 10.0 Immature Gran % 0.9 Neutrophils % 96.2 Lymphocytes % 1.6 Monocytes % 1.2 Eosinophils % 0.0 Basophils % 0.1 Nucleated RBC % 0.0 Absolute Neutrophils 8.30 H Absolute Lymphocytes 0.14 L Absolute Monocytes 0.10 Absolute Eosinophils 0.00 Absolute Basophils 0.01 PT 14.9 H INR 1.5 H Sodium 137 Potassium 3.4 L Chloride 98 Carbon Dioxide 26.1 Anion Gap 12.9 H BUN 27 H Creatinine 1.4 H Est GFR (CKD-EPI 2020) 36.87 Glucose 323 H Calcium 8.9 Total Bilirubin 0.7 AST 35 ALT 34 Alkaline Phosphatase 146 H Troponin I 28 27 30 NT-Pro-B Natriuret Pep 3526 H Total Protein 7.4 Albumin 3.6 Last Vital Signs Temp 35.9 C L 10/13/24 16:08 Pulse 65 10/13/24 21:10 Resp 16 10/13/24 21:10 BP 102/42 L 10/13/24 21:01 Pulse Ox 99 10/13/24 21:10 Time Spent Time spent with Patient: >75 minutes Time was spent: preparing to see the patient(eg.review tests), obtaining and/or reviewing separately otained hiistory, ordering medications,tests, procedures, referring, communicating with other health neonatal critical care nurse, indepentently interpreting results, counseling the patient and care coordination
[2024-10-13 21:32] LABS: Lab Add On Test DONE
[2024-10-13 21:39] LABS: Magnesium 2.4 mg/dL (1.8-2.4)
[2024-10-13] MEDS: Budesonide/Formoterol 160/4.5 6 GM 60 PUFF INH IH (22:53)
[2024-10-13] MEDS: Warfarin 5 MG TAB PO (23:08)
[2024-10-13] MEDS: Potassium Chloride 20 MEQ TABCR 40 MEQ PO (23:08)
[2024-10-14] VITALS (73 sets, daily range): BP systolic 82–109; BP diastolic 33–53; PULSE 52–105; RESP 16–26; TEMP 36.3–36.6; O2SAT 91–97
--- NOTE | 2024-10-14 00:36 | W.PC.ACHO ---
Registration Status: Primary Language: Preferred Language: ED Information & Data Chief Complaint RespSymp 10/13/24 17:09 Triage Note patient state she's been 10/13/24 16:08 having SOB for time but it has gotten worsened for the past couple of days. State she is not able to walk to the bathroom without resting . State she has a history of afib and she has been feeling as if her heart has been racing a lot. Denies chest pain or pressure Medical / Surgical History (Last Updated 10/13/24 @ 21:55 by Felipe Cooper) Aortic stenosis, moderate Severe tricuspid regurgitation Abscess Bunion Memory deficit Elevated TSH Type 2 diabetes mellitus Hypocalcemia CKD (chronic kidney disease) Facial skin lesion Hyperlipidemia Asthma CAD (coronary artery disease) A-fib HTN (hypertension) Diabetes mellitus Lactose intolerance Osteoporosis Diverticulitis Allergic rhinitis Hiatal hernia Mitral valve stenosis Insomnia Leg cramps (Last Reviewed 10/13/24 @ 21:44 by Felipe Cooper) Status post excisional debridement (~02/2024) Mitral valve replaced History of bladder suspension procedure History of tonsillectomy H/O adenoidectomy Most Recent Vital Signs Temperature 36.6 C 10/13/24 22:05 Temperature Source Temporal Artery Scan 10/13/24 22:05 Pulse 58 L 10/14/24 00:12 Pulse 69 10/14/24 00:12 Respiratory Rate 19 10/14/24 00:12 Respiratory Effort Normal 10/13/24 22:05 Respiratory Depth Normal 10/13/24 22:05 Respiratory Pattern Normal 10/13/24 22:05 Blood Pressure 106/50 L 10/14/24 00:12 Blood Pressure Mean 64 10/14/24 00:12 Blood Pressure Position Sitting 10/13/24 16:08 Pulse Oximetry 97 10/14/24 00:12 Oxygen Delivery Method Room Air 10/13/24 22:05 Oxygen Flow Rate 0 10/13/24 22:05 Comment unable to ascertain blood pressure 10/13/24 16:08 Allergies peanut Allergy (Severe, Verified 08/13/24 20:56) Anaphylaxis anaphylaxis - does not carry an epi pen Penicillins Allergy (Unknown, Verified 08/13/24 20:56) Pt thinks she gets a rash aminophylline Allergy (Verified 08/13/24 20:56) unknown digoxin Allergy (Verified 08/13/24 20:56) unknown enalaprilat (From Vasotec) Allergy (Verified 08/13/24 20:56) unknown tree and shrub pollen Allergy (Verified 08/13/24 20:56) Itching paper tape Allergy (Intermediate, Uncoded 08/13/24 20:56) Skin Rash, red and sore Precautions Isolation Fall precaution 10/13/24 16:49 IV IV Catheter Type [Right Saline Lock Antecubital] IV Catheter Gauge [Right 20 Antecubital] Diet Orders Category Date Time Status Heart Healthy Eating [DIET] Nutrition 10/14/24 Breakfast Active Diagnostics 10/14/24 10/13/24 10/13/24 Range/Units 05:35 19:35 17:30 WBC (4.4-10.8) 10^3/uL RBC (3.93-5.22) 10^6/uL Hgb (11.2-15.7) g/dL Hct (36.0-46.0) % MCV (80-95) fL MCH (27.0-33.0) pg MCHC (32.0-36.0) % RDW (11.7-14.6) % Plt Count (130-400) 10^3/uL MPV (8.0-11.0) fL Immature Gran % % Neutrophils % % Lymphocytes % % Monocytes % % Eosinophils % % Basophils % % Nucleated RBC % (0.0-0.3) % Absolute Neutrophils (1.2-6.7) 10^3/uL Absolute Lymphocytes (1.2-3.4) 10^3/uL Absolute Monocytes (0.1-0.8) 10^3/uL Absolute Eosinophils (0.0-0.7) 10^3/uL Absolute Basophils (0.0-0.2) 10^3/uL PT Pending (9.1-11.1) sec INR Pending (0.9-1.1) Sodium Pending (136-145) mmol/L Potassium Pending (3.5-5.1) mmol/L Chloride Pending (98-107) mmol/L Carbon Dioxide Pending (21.0-32.0) mmol/L Anion Gap Pending (3-11) mmol/L BUN Pending (7-18) mg/dL Creatinine Pending (0.55-1.02) mg/dL Est GFR (CKD-EPI 2020) Pending (mL/min/1.73m2) Glucose Pending (74-106) mg/dL Calcium Pending (8.5-10.1) mg/dL Magnesium Pending 2.4 (1.8-2.4) mg/dL Total Bilirubin (0.2-1.0) mg/dL AST (15-37) U/L ALT (14-59) U/L Alkaline Phosphatase (46-116) U/L Troponin I 30 27 (<or=51) ng/L NT-Pro-B Natriuret Pep (<300) pg/mL Total Protein (6.4-8.2) g/dL Albumin (3.4-5.0) g/dL TSH Pending Add-On Test Request DONE 10/13/24 Range/Units 16:30 WBC 8.63 (4.4-10.8) 10^3/uL RBC 3.73 L (3.93-5.22) 10^6/uL Hgb 11.0 L (11.2-15.7) g/dL Hct 33.7 L (36.0-46.0) % MCV 90 (80-95) fL MCH 29.5 (27.0-33.0) pg MCHC 32.6 (32.0-36.0) % RDW 16.6 H (11.7-14.6) % Plt Count 268 (130-400) 10^3/uL MPV 10.0 (8.0-11.0) fL Immature Gran % 0.9 % Neutrophils % 96.2 % Lymphocytes % 1.6 % Monocytes % 1.2 % Eosinophils % 0.0 % Basophils % 0.1 % Nucleated RBC % 0.0 (0.0-0.3) % Absolute Neutrophils 8.30 H (1.2-6.7) 10^3/uL Absolute Lymphocytes 0.14 L (1.2-3.4) 10^3/uL Absolute Monocytes 0.10 (0.1-0.8) 10^3/uL Absolute Eosinophils 0.00 (0.0-0.7) 10^3/uL Absolute Basophils 0.01 (0.0-0.2) 10^3/uL PT 14.9 H (9.1-11.1) sec INR 1.5 H (0.9-1.1) Sodium 137 (136-145) mmol/L Potassium 3.4 L (3.5-5.1) mmol/L Chloride 98 (98-107) mmol/L Carbon Dioxide 26.1 (21.0-32.0) mmol/L Anion Gap 12.9 H (3-11) mmol/L BUN 27 H (7-18) mg/dL Creatinine 1.4 H (0.55-1.02) mg/dL Est GFR (CKD-EPI 2020) 36.87 (mL/min/1.73m2) Glucose 323 H (74-106) mg/dL Calcium 8.9 (8.5-10.1) mg/dL Magnesium (1.8-2.4) mg/dL Total Bilirubin 0.7 (0.2-1.0) mg/dL AST 35 (15-37) U/L ALT 34 (14-59) U/L Alkaline Phosphatase 146 H (46-116) U/L Troponin I 28 (<or=51) ng/L NT-Pro-B Natriuret Pep 3526 H (<300) pg/mL Total Protein 7.4 (6.4-8.2) g/dL Albumin 3.6 (3.4-5.0) g/dL TSH Add-On Test Request 10/13/24 19:35 Blood Culture - Pending Blood 10/13/24 19:35 Blood Culture - Pending Blood Intake and Output - 24 Hour Total 10/13/24 16:05 thru 10/13/24 22:05 Intake Total 20 Balance 20 Weight 60.1 kg Intake: IV 20 Falls Risk Assessment History of Falls Previous History 10/13/24 22:05 Contributing Factors Unstable 10/13/24 22:05 Ambulatory Aids Uses ambulatory device + 10/13/24 22:05 Tubes/Lines With any additional score 10/13/24 22:05 Gait Evaluation No gait disturbance 10/13/24 22:05 Cognition No cognitive impairment 10/13/24 22:05 Fall Total Score 68 10/13/24 22:05 Level of Risk High Risk 10/13/24 22:05 Problems (Last Updated 10/13/24 @ 21:55 by Felipe Cooper) Anemia (Chronic) Acute kidney injury superimposed on CKD (Acute) Hypothyroid (Chronic) Acute heart failure with reduced ejection fraction (HFrEF, <= 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 (Acute) Atrial fibrillation with rapid ventricular response (Acute) Cardiogenic shock (Acute) Anticoagulated on Coumadin (Acute) v v v v v v v v v Sending and/or Receiving Nurses: Please use comment section below to note any information pertinent to the patient hand-off not included above. Information / Comments: Report received from: Rosa Jett RN
[2024-10-14] MEDS: Levothyroxine 25 MCG TAB PO (05:26)
[2024-10-14 06:31] LABS: INR 1.6 (0.9-1.1); Prothrombin Time 15.8 sec (9.1-11.1)
[2024-10-14 06:44] LABS: Magnesium 2.3 mg/dL (1.8-2.4)
[2024-10-14 06:47] LABS: Anion Gap 3.8 mmol/L (3-11); BUN 30 mg/dL (7-18); CO2 33.2 mmol/L (21.0-32.0); Calcium 8.8 mg/dL (8.5-10.1); Chloride 102 mmol/L (98-107); Estimated GFR 55.21 (mL/min/1.73m2); Glucose 134 mg/dL (74-106); Potassium 3.9 mmol/L (3.5-5.1); Sodium 139 mmol/L (136-145); TSH 20.31 uIU/mL (0.36-3.74)
--- NOTE | 2024-10-14 08:46 | INITIAL_ITS ---
Date of service: 10/14/24 Time of Service: 08:47 Care Management Initial Assmt Initial Assessment Reason for Hospitalization: cardiogenic shock, afib Functional Status/Living Situation Patient Presentation: Sushma presented to the ED yesterday evening with c/o SOB. She had seen her PCP earlier in the day, and was sent to the ED. She was found to be hypotensive and in afib with HR in 120s. Sushma was sitting up in the bed when CM met with her today. She looked well, and stated she felt well, but just a little tired. Sushma was discharged home from rehab earlier in the week after a long stay at [facility] for heart failure. Sushma's meds were changed at [facility], but she resumed her previous meds on discharge, and this is believed what prompted her sx. She does not want to return to rehab. She would like to go home with the resumption of her HH SN and PT/OT. Sushma lives alone, her son, Art is local, and help with her errands and big chores. Sushma does most of her own cooking, but sometimes her neighbors will share a meal. She stated that she has no worries about going home. Town of Residence: [facility] Resides with: Alone Significant Other/Family: Local (1 son and 1 daughter live close by, Art is especially supportive, another daughter in [place], and son in [place]) Natural Supports: family and neighbors Employment Status: Retired (worked as an [employer] for many years) Instrumental Activities of Daily Living (ADLs): Independent Medications Medication Management: No Issues/Barriers identified (will have SN for med management) Physical Functioning/Mobility Assistive Device: walker Advance Directives Advance Directives: Do you have an Advance Directive: Y 01/01/23 09:56 AD On File at [facility]: Y 01/01/23 09:56 Date Asked 06/23/24 06/23/24 12:58 AD Date Reviewed 07/29/24 07/29/24 08:42 COLST On File at [facility] COLST Date Scanned Code Status Resuscitation Status Full Code Insurance Coverage/Financial Issues Insurance: Medicare Part A & B Medicaid of [place] Care Team Visit Care Team Role Provider Type Mell Cueto MD Primary Care Provider [facility] STAFF PHYSICIAN Dion Bojorquez MD Emergency Provider [facility] STAFF PHYSICIAN Felipe Cooper Admit Provider [facility] STAFF PHYSICIAN Attending Provider Discharge Potential Discharge Needs: Consult Consult Services Needed: Palliative, PT Evaluation and PCP F/U Appt Anticipated Barriers to Discharge: None Identified Patient/Family Education Needs: Review discharge instructions, discuss Ask Me Three Transportation: Private vehicle Plan: Sushma will likely discharge home with resumption of her HC RN, PT[facility]OT[facility]. Sushma will f/u with her PCP and continue per her plan of care. CM will continue to follow. Social Determinants of Health Screening Social Determinants of health last assessed in clinic: 10/14/24 Will the Patient Participate in the Screening?: Yes Do you worry about having a steady place to live?: no Problems where you live: no known problems In the past 12 months, have you had to go without electric, gas, oil or water in your home?: no 1. Within the past 12 months, we worried whether our food would run out before we got money to buy more.: Never true 2. Within the past 12 months, the food we bought just didn't last and we didn't have money to get more.: Never true Has lack of transportation kept you from medical appointments or from doing things needed for daily living?: no Has anyone in your life made you feel unsafe or unsupported?: no How hard is it for you to pay for the very basics like food, housing, medical care, and heating? Would you say it is:: Not hard at all Do you want help finding or keeping work or a job?: I do not need or want help If for any reason you need help with day-to-day activities such as bathing, preparing meals, shopping, managing finances, etc., do you get the help you need?: I get all the help I need How often do you feel lonely or isolated from those around you?: Never Do you speak a language other than [place] at home?: No Does the patient want assistance with any of the above?: No PFSH All Active Problems (Updated 10/13/24 @ 21:56 by Felipe Cooper) Anemia (Chronic) Acute kidney injury superimposed on CKD (Acute) Hypothyroid (Chronic) Acute heart failure with reduced ejection fraction (HFrEF, <= 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 (Acute) Cardiomyopathy (Acute) Atrial fibrillation with rapid ventricular response (Acute) Cardiogenic shock (Acute) Heart failure with reduced ejection fraction (Acute) Iron refractory iron deficiency anemia (Acute) Nonhealing nonsurgical wound with fat layer exposed (Acute) Wound of left lower extremity (Acute) Anticoagulated on Coumadin (Acute) Lesion of skin of nose (Acute) Conductive hearing loss in right ear (Acute 02/23/15) Mixed conductive and sensorineural hearing loss of right ear with restricted hearing of left ear (Acute 07/25/16) Sensorineural hearing loss (SNHL) of left ear with restricted hearing of right ear (Acute 07/25/16) Sensorineural hearing loss, bilateral (Acute 02/25/17) Medical History (Updated 10/13/24 @ 21:56 by Felipe Cooper) Aortic stenosis, moderate Severe tricuspid regurgitation Abscess Bunion Memory deficit Elevated TSH Type 2 diabetes mellitus Hypocalcemia CKD (chronic kidney disease) Facial skin lesion Hyperlipidemia Asthma CAD (coronary artery disease) A-fib HTN (hypertension) Diabetes mellitus Lactose intolerance Osteoporosis Diverticulitis Allergic rhinitis Hiatal hernia Mitral valve stenosis Insomnia Leg cramps Surgical History Status post excisional debridement (~02/2024) Left Leg Mitral valve replaced History of bladder suspension procedure History of tonsillectomy H/O adenoidectomy Family History Father , d. 60 Throat cancer Mother , d. 80 Heart disease Social History (Updated 10/13/24 @ 21:47 by Felipe Cooper) Smoking/Tobacco Use Status: Never Smoking risk assessment performed?: Yes Alcohol Intake: never Drug use: Never Substance use type: does not use Household members: none Housing: other Number of Children: 4 Do you feel safe at home: Yes Do you feel safe in your relationship?: Yes Additional Social history: . lives alone in [address]. son lives nearby Readmission Within the Past 30 Days Yes or No: No Anticipated HH Services Anticipated HH Services at Discharge [facility] Resumption, OT, PT and RN.
[2024-10-14] MEDS: Sennosides/Docusate Sodium TAB 2 TAB PO ×2 (09:05→19:33)
[2024-10-14] MEDS: Cholecalciferol (Vitamin D3) 1,000 UNIT TAB 1000 UNITS PO (09:05)
[2024-10-14] MEDS: Amiodarone 200 MG TAB PO (09:05)
[2024-10-14] MEDS: Potassium Chloride 10 MEQ TABCR PO (09:05)
[2024-10-14] MEDS: Cetirizine 10 MG TAB PO (09:07)
[2024-10-14] MEDS: Empaglifozin 10 MG TAB PO (09:07)
[2024-10-14] MEDS: Normal Saline Flush 10 ML SYR (09:07)
--- NOTE | 2024-10-14 11:48 | IN_ITS ---
PT Notes Visit Reasons: HFrEF, atrial fibrillation with RVR, cardiogenic s Physical Therapy Inpatient Initial Evaluation Date: 10/14/2024 Referring Doctor: Felipe Cooper MD PT Orders: PT CONSULT: Eval for Asssitive Device. Safety Consult for D/C. HfrEF, valvular disease. General fatigue, recent porlonged admisison Precautions: Fall. Standard. Activity as tolerated. Patient Profile/Admitting Diagnosis: Patient is an 84-year-old female patient admitted for management of cardiogenic shock, AF with RVR, acute heart failure with decreased EF, type II DM, Hypothyroidism, PRACHI, anticoagulated on Coumadin, and anemia. PT referral was made to address mobility aid needs as well as discharge destination recommendations. MAPS continue to be onitored in the ICU and AF is now stabilized and patient is back on Amiodarone. PMHX: All Active Problems (Updated 10/13/24 @ 21:56 by Felipe Cooper) Anemia (Chronic) Acute kidney injury superimposed on CKD (Acute) Hypothyroid (Chronic) Acute heart failure with reduced ejection fraction (HFrEF, <= 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 (Acute) Cardiomyopathy (Acute) Atrial fibrillation with rapid ventricular response (Acute) Cardiogenic shock (Acute) Heart failure with reduced ejection fraction (Acute) Iron refractory iron deficiency anemia (Acute) Nonhealing nonsurgical wound with fat layer exposed (Acute) Wound of left lower extremity (Acute) Anticoagulated on Coumadin (Acute) Lesion of skin of nose (Acute) Conductive hearing loss in right ear (Acute 02/23/15) Mixed conductive and sensorineural hearing loss of right ear with restricted hearing of left ear (Acute 07/25/16) Sensorineural hearing loss (SNHL) of left ear with restricted hearing of right ear (Acute 07/25/16) Sensorineural hearing loss, bilateral (Acute 02/25/17) Medical History (Updated 10/13/24 @ 21:56 by Felipe Cooper) Aortic stenosis, moderate Severe tricuspid regurgitation Abscess Bunion Memory deficit Elevated TSH Type 2 diabetes mellitus Hypocalcemia CKD (chronic kidney disease) Facial skin lesion Hyperlipidemia Asthma CAD (coronary artery disease) A-fib HTN (hypertension) Diabetes mellitus Lactose intolerance Osteoporosis Diverticulitis Allergic rhinitis Hiatal hernia Mitral valve stenosis Insomnia Leg cramps Surgical History Status post excisional debridement (~02/2024) Left Leg Mitral valve replaced History of bladder suspension procedure History of tonsillectomy H/O adenoidectomy Social History/Home Situation: Lives alone in a mobile home with 2 steps to enter. Ambulatory without assistive device. Ocassionally uses a FWW. Equipment Owned/DME: FWW, SPC Subjective: [place] good moving out of bed to walk. CAreful ot to overdo herself for today but was able to walk out of her room and back onto a chair with FWW without any issues. Denied headache, chest pain, and light headedness throughout session. Objective: General Observation: Resting in bed. Telemetry in place. Ornelas catheter in place. Mental Status: Alert and oriented as to person, place, time, and purpose. Able to pay attention, focus, and respond appropriately. Pain: None reported Vital Signs: WNL as closely monitored via tele throughout the short walk for this session ROM: Right Upper Extremity: Shoulder Flexion WFL. Shoulder abduction WFL. Elbow flexion WFL. Wrist flexion WFL. Functional opening and closing of hand WFL. Left Upper Extremity: Shoulder Flexion WFL. Shoulder abduction WFL. Elbow flexion WFL. Wrist flexion WFL. Functional opening and closing of hand WFL. Right Lower Extremity: Hip flexion WFL. Hip abduction WFL. Knee flexion WFL. Ankle dorsiflexion WFL. Ankle plantarflexion WFL. Left Lower Extremity: Hip flexion WFL. Hip abduction WFL. Knee flexion WFL. Ankle dorsiflexion WFL. Ankle plantarflexion WFL. Strength: Right Upper Extremity: Shoulder flexors 4-/5. Shoulder abductors 4-/5. Elbow flexors 4-/5. Elbow extensors 4-/5. Health Professor strong. Left Upper Extremity: Shoulder flexors 4-/5. Shoulder abductors 4-/5. Elbow flexors 4-/5. Elbow extensors 4-/5. Health Professor strong. Right Lower Extremity: Hip flexors 3+/5. Hip abductors 3+/5. Knee flexors 4-/5. Knee extensors 4-/5. Ankle dorsiflexors 4-/5. Ankle plantarflexors 4-/5. Left Lower Extremity: Hip flexors 3+/5. Hip abductors 3+/5. Knee flexors 4-/5. Knee extensors 4-/5. Ankle dorsiflexors 4-/5. Ankle plantarflexors 4-/5. Bed Mobility/Transfers: Minimal cueing provided for use of B hands as needed for support, movement sequence, AD management, and posture to reduce fall risk and minimize pain report Rolling contact guard assist Supine to sit contact guard assist Sit to stand contact guard assist with FWW Stand to sit contact guard assist with FWW Bed to reclining chair contact guard assist with FWW Gait: Facilitated safe and correct performance of level surface ambulation covering a distance of 40 feet using FWW with contact guard assist of PT. Sandrine slowed. Directional change slowed. Minimal cueing provided for AD management only. NO LOB. Minimal SOB noted. Balance: Static Sitting: Normal Dynamic Sitting: Normal Static Standing: Fair Dynamic Standing: Fair Special Tests: Mobility Limitations Standardized Measure [facility] AM-PAC 6 clicks Basic Mobility Inpatient Short Form: Raw Score: 18 CMS Score: 47% deficit Informed Consent/Education: Patient was instructed in purpose of PT consult and plan of care. Agreeable to proceed with established PT POC to achieve personal goals. Assessment: Patient was mobilized out of bed today using a front-wheeled walker needing contact guard assist of 1 with minimal shortness of breath noted after a short walk. She reported much improved activity tolerance compared to yesterday. Patient presents with clinical signs and symptoms consistent with current/admitting diagnoses that have resulted to mobility limitations, gait instability, generalized weakness, and overall ADL decline as demonstrated by the following impairment level findings: 1. Decreased strength to B LE major muscle groups 2. Impaired sitting/standing balance 3. Impaired activity tolerance 4. Shortness of breath minimal after a short walk Impairments are contributing to the following functional limitations: 1. Decline in bed mobility skills 2. Decline in transfer skills 3. Difficulty with ambulation without assistive device and physical assistance 4. Increased completion time for mobility ADL performance 5. Increased risk for falls 6. Difficulty with managing steps alone safely Patient is assessed as a [id number] moderate complexity based on the following: History: 84-year-old female with past medical history as indicated above Examination: Demonstrable impairment in strength, balance, and mobility level with underlying impairments and functional limitations as exhibited above as well as deficit score of 47% utilizing the [facility] Mobility Inpatient Short Form Presentation: Evolving Decision Makin moderate complexity Goals: Goals X1 week 1. Supine-Sit independent 2. Sit-Supine independent 3. Sit-Stand independent 4. Stand-Sit independent with [] 5. Bed-Chair independent with [] 6. Chair-Bed independent with [] 7. Independent gait on level surface with use of [] for at least [] feet without report of pain nor dyspnea 8. Independent stair negotiation while holding onto [] rails for at least [] steps without report of pain nor dyspnea 9. Independent with home exercise program 10. Good static and dynamic standing balance/tolerance Plan of Care/Treatment Plan: 1-2x/day, 7 days/week x 1 week. Plan of care has been reviewed with the LOCKSTITCH SHOULDER JOINER providing the service under Physical Therapy direction. Initiate Physical Therapy intervention for pain management as needed, strengthening, bed mobility, transfers, gait, stairs, balance training, and use of assistive device. DISCHARGE RECOMMENDATIONS: [] Home with no services [] [X] Home with services. Patient will benefit from home health PT services in order to progress mobility level using least restrictive assistive ambulatory device, assess home safety, identify additional equipment needs, and establish a functional maintenance program that will increase ability of patient to remain at home. [] Home with outpatient PT [] [] SNF for continued rehabilitation [] [] Hospital Manager Care [] [] SNF versus LTC based on ability to participate and progress [] TREATMENT CODE/TIME: 85022 x 24 minutes for 1 unit (11:48-12:12). Thank you for the opportunity to participate in the care of this patient. Rosibel Darling PT, DPT, CLT [facility] [place], [place]
[2024-10-14] MEDS: Insulin Aspart 300 UNITS/3 ML PEN SC (12:28)
--- NOTE | 2024-10-14 15:06 | PGE_ITS ---
Date of Service Date of service: 10/14/24 Time of Service: 15:06 Assessment and Plan Assessment and plan (1) Cardiogenic shock: Status: Acute Assessment and plan: Presented in cardiogenic shock. Stabilized after slowing heart rate. Trigger was afib in setting of stopping her amiodarone (and apparently taking atenolol instead) She still appears euvolemic today, skipped her diuretics this morning. With valvular disease I don't want to overdiurese. Arterial line placed for more accurate BPs. MAPs good at times but low at times as well. High pulse pressure, likely related to valvular disease. MAPs totally normal when she is sitting up. Her mentation is good and urine output is excellent indicating adequate perfusion Called [facility] cardiology given complexity of this case, discussed with Dr. Lara, no additional interventions recommended, though he did recommend monitoring her back on her regular meds before discharge. If she is considering valvular intervention we should call to have her scheduled as outpatient. (2) Atrial fibrillation with rapid ventricular response: Status: Acute Assessment and plan: Initially got diltiazem, did not continue given recently diagnosed HFrEF. Stable now back on amiodarone, rate controlled in afib, continue. (3) Acute heart failure with reduced ejection fraction (HFrEF, <= 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: Status: Acute Assessment and plan: She was tolerating MRA, SGLT2i for GDMT at [facility], resume these. Previously on losartan and atenolol but stopped at [facility]. MRA and torsemide held today Continue to monitor closely. We reviewed rationale for all her medicaitons, which she doesn't like to be taking. She will need ongoing encouragement and teaching, home health will also help. Ordered palliative consult. (4) Type 2 diabetes mellitus: Assessment and plan: Last A1c well controlled wihtout medication other than empagliflozin. Monitor, ISS. Sugars have been reasonably controlled. (5) Hypothyroid: Status: Chronic Assessment and plan: previously subclinical, now overt since starting amiodarone. TSH about 5 weeks after starting still high, titrate to 37.5mcg. (6) Acute kidney injury superimposed on CKD: Status: Acute Assessment and plan: Cr was 1.4 on admission, likely secondary to hypotension. Normalized overnight. (7) Anticoagulated on Coumadin: Status: Acute Assessment and plan: Goal 2.5-3.5 with mechanical valve. She is still below this, likely missed doses. Given another 5mg now and follow daily. Subjective Subjective Patient reports: feels better and tolerating a regular diet; denies nausea, vomiting, shortness of breath or fever Interval history since last seen: Events: held torsemide and spironolactone for soft blood pressures this morning A-line placed She feels okay. No chest pain or other pain. She just feels a little tired. She did get up with PT today. Exam Narrative Exam Narrative: GEN: Alert and oriented x 4 No acute distress at rest. LUNGS: Slight basilar rales bilaterally, but good air movement. Intermittent diffuse expiratory wheeze. CV: RRR with 3/6 systolic murmur audible throughout. No gallops, or rubs. ABD: active bowel sounds, soft, nontender and nondistended. No masses. EXT: no cyanosis, clubbing. trace ankle edema Objective Last Vital Signs Temp 36.6 C 10/14/24 09:50 Pulse 73 10/14/24 13:22 Resp 20 10/14/24 13:22 BP 82/33 L 10/14/24 13:22 Pulse Ox 97 10/14/24 13:22 Laboratory Results - last 24 hr 10/13/24 10/13/24 10/13/24 16:30 17:30 19:35 WBC 8.63 RBC 3.73 L Hgb 11.0 L Hct 33.7 L MCV 90 MCH 29.5 MCHC 32.6 RDW 16.6 H Plt Count 268 MPV 10.0 Immature Gran % 0.9 Neutrophils % 96.2 Lymphocytes % 1.6 Monocytes % 1.2 Eosinophils % 0.0 Basophils % 0.1 Nucleated RBC % 0.0 Absolute Neutrophils 8.30 H Absolute Lymphocytes 0.14 L Absolute Monocytes 0.10 Absolute Eosinophils 0.00 Absolute Basophils 0.01 PT 14.9 H INR 1.5 H Sodium 137 Potassium 3.4 L Chloride 98 Carbon Dioxide 26.1 Anion Gap 12.9 H BUN 27 H Creatinine 1.4 H Est GFR (CKD-EPI 2020) 36.87 Glucose 323 H Calcium 8.9 Magnesium 2.4 Total Bilirubin 0.7 AST 35 ALT 34 Alkaline Phosphatase 146 H Troponin I 28 27 30 NT-Pro-B Natriuret Pep 3526 H Total Protein 7.4 Albumin 3.6 TSH Add-On Test Request DONE 10/14/24 05:30 WBC RBC Hgb Hct MCV MCH MCHC RDW Plt Count MPV Immature Gran % Neutrophils % Lymphocytes % Monocytes % Eosinophils % Basophils % Nucleated RBC % Absolute Neutrophils Absolute Lymphocytes Absolute Monocytes Absolute Eosinophils Absolute Basophils PT 15.8 H INR 1.6 H Sodium 139 Potassium 3.9 Chloride 102 Carbon Dioxide 33.2 H Anion Gap 3.8 BUN 30 H Creatinine 1.0 Est GFR (CKD-EPI 2020) 55.21 Glucose 134 H Calcium 8.8 Magnesium 2.3 Total Bilirubin AST ALT Alkaline Phosphatase Troponin I NT-Pro-B Natriuret Pep Total Protein Albumin TSH 20.31 H Add-On Test Request Time Spent with Patient Time Spent with Patient: >50 minutes Time was spent: preparing to see the patient(eg.review tests), obtaining and/or reviewing separately otained hiistory, ordering medications,tests, procedures, referring, communicating with other health skin care instructor, indepentently i nterpreting results, counseling the patient and care coordination
--- NOTE | 2024-10-14 15:23 | W.ANESVAS ---
Arterial Line Placement Date Performed: 10/14/24 Procedure Time: 14:30 Procedure Location: Intensive Care Unit Requesting Provider: Felipe Cooper Timeout Performed: Yes Sedation Given (Indicate Dose Given): No Sedation given Patient Mental Status: Awake Sterility: Hand Hygiene, Surgical Mask, Sterile Gloves, Eye Protection and Chlorhexidine Laterality: Right Insertion Site: Radial Arterial Line Catheter: 20G Angiocath Arterial Line Procedure: 1% Lidocaine to skin and subcutaneous tissue with 25g needle (1.5 cc 2% lidocaine used), Vessel accessed with catheter over needle, Guidewire placed with ease, Catheter placed without resistance and Guidewire removed Dressing: Tegaderm Applied and Mastisol Used Ultrasound: Sterile probe cover and gel used Ultrasound Image Saved?: Yes Number of Attempts (See previous attempts in note section): 1 Procedure Tolerated: No Complications and Patient tolerated well Procedure Outcome: Successful Performed By: Portillo Perera Supervised By: Dimas Bush
--- NOTE | 2024-10-14 15:58 | CHAPLAIN ---
Sushma was up in the chair visiting with her son Art, when I stopped in. She was pleasant and they both engaged in conversation. I explained my role and offered support. Sushma said she is all set. She is hoping to return home. Art lives near by and helps her out.
--- NOTE | 2024-10-14 16:32 | PHA.REVIEW2 ---
Pharmacy Admission Review Admission Clinical Review Admission Pharmacy Review: Acute kidney injury superimposed on CKD (Acute) Acute heart failure with reduced ejection fraction (HFrEF, <= 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 (Acute) Atrial fibrillation with rapid ventricular response (Acute) Cardiogenic shock (Acute) Anticoagulated on Coumadin (Acute) peanut Allergy (Severe, Verified 08/13/24 20:56) Anaphylaxis Penicillins Allergy (Unknown, Verified 08/13/24 20:56) Pt thinks she gets a rash aminophylline Allergy (Verified 08/13/24 20:56) unknown digoxin Allergy (Verified 08/13/24 20:56) unknown enalaprilat (From Vasotec) Allergy (Verified 08/13/24 20:56) unknown tree and shrub pollen Allergy (Verified 08/13/24 20:56) Itching paper tape Allergy (Intermediate, Uncoded 08/13/24 20:56) Skin Rash, red and sore Resuscitation Status Full Code Height 5 ft 3 in Weight 60 kg Pharmacy Admission Review Renal Dosing Renal Dosing: BUN 30 mg/dL (7-18) H 10/14/24 05:30 Creatinine 1.0 mg/dL (0.55-1.02) 10/14/24 05:30 Medications needing adjustments: Reviewed Anticoagulation Anticoagulation: Hgb 11.0 g/dL (11.2-15.7) L 10/13/24 16:30 Hct 33.7 % (36.0-46.0) L 10/13/24 16:30 Plt Count 268 10^3/uL (130-400) 10/13/24 16:30 INR 1.6 (0.9-1.1) H 10/14/24 05:30 Creatinine 1.0 mg/dL (0.55-1.02) 10/14/24 05:30 Medications: Warfarin (for afib. INR=1.6. Goal 2.5-3.5 with mechanical valve. Giving 5mg daily and following daily INR. ) Opiate Usage Evaluate Pain Scale/Pains Meds: N/A Relevant Labs Relevant Labs: Sodium 139 mmol/L (136-145) 10/14/24 05:30 Potassium 3.9 mmol/L (3.5-5.1) 10/14/24 05:30 Chloride 102 mmol/L (98-107) 10/14/24 05:30 Magnesium 2.3 mg/dL (1.8-2.4) 10/14/24 05:30 Electrolytes, C-Reactive P, ESR: Reviewed (TSH=20.31. Started on levothyroxine 37.5mcg po daily. ) DM Control DM Control: hpavgpe=328. Last A1c well controlled on empagliflozin. Monitor ISS. . DM Control: Reviewed Cardiac Review Cardiac Review: Troponin I 30 ng/L (<or=51) 10/13/24 19:35 NT-Pro-B Natriuret Pep 3526 pg/mL (<300) H 10/13/24 16:30 BP, HR, EF%: Reviewed (pt restarted on amiodarone for a.fib. (wasn't taking after leaving rehab); and resumed atenolol (wasn't supposed to resume it). ) QTc Review QTc: Reviewed List meds needing interventions: QTC 493. Per provider pt has BBB which overestimates the QTC. IV to PO Switch IV Medications: Reviewed Home Meds Home Med List reviewed: Reviewed Relevent Home Meds Not ordered & why?: On torsemide 50mg daily. Medication adherence barriers identified?: Pt didn't have new medications upon discharge from rehab and resumed old regimen. [place] [facility] [place] 09[place]13[place]. Updated home med list in EMR. Current Meds Current Medication Order Review: Reviewed
--- NOTE | 2024-10-14 16:46 | NUR.NOTE ---
Nursing Note: Fingersticks not carrying over to the chart. 1645 FS 133.
[2024-10-14] MEDS: Melatonin 3 MG TAB 6 MG PO (19:32)
[2024-10-14] MEDS: Atorvastatin 10 MG TAB PO (19:32)
[2024-10-14] MEDS: Budesonide/Formoterol 160/4.5 6 GM 60 PUFF INH IH (20:23)
[2024-10-15] VITALS (28 sets, daily range): BP systolic 83–110; BP diastolic 28–58; PULSE 59–93; RESP 13–25; TEMP 36–37.2; O2SAT 93–97
[2024-10-15 06:00] LABS: INR 2.3 (0.9-1.1); Prothrombin Time 22.2 sec (9.1-11.1)
[2024-10-15] MEDS: Levothyroxine 25 MCG TAB 37.5 MCG PO (06:29)
[2024-10-15] MEDS: Potassium Chloride 10 MEQ TABCR PO (08:10)
[2024-10-15] MEDS: Amiodarone 200 MG TAB PO (08:10)
[2024-10-15] MEDS: Cholecalciferol (Vitamin D3) 1,000 UNIT TAB 1000 UNITS PO (08:10)
[2024-10-15] MEDS: Spironolactone 25 MG TAB PO (08:10)
[2024-10-15] MEDS: Sennosides/Docusate Sodium TAB 2 TAB PO (08:10)
[2024-10-15] MEDS: Empaglifozin 10 MG TAB PO (08:10)
[2024-10-15] MEDS: Torsemide 20 MG TAB 50 MG PO (08:11)
[2024-10-15] MEDS: Cetirizine 10 MG TAB PO (08:12)
[2024-10-15] MEDS: Budesonide/Formoterol 160/4.5 6 GM 60 PUFF INH IH ×2 (08:17→19:19)
--- NOTE | 2024-10-15 08:50 | CMPROGNOTE_ITS ---
Date of service: 10/15/24 Time of Service: 08:51 Care Management Progress Note Progress Note Text Progress Note Text: Sushma was sitting up in the bedside chair when CM met with her today. She was very pleasant. She looked well and stated that she was feeling pretty good. Sushma had her current med list in front of her, she stated that she hadn't heard of many of the meds. She will be very pleased to have RN help her with med management. Sushma stated that her son will drive her home when she is ready, and also make sure she has plenty of food. Discharge Potential Discharge Needs: PCP F/U Appt Anticipated Barriers to Discharge: None Identified Patient/Family Education Needs: Review discharge instructions, discuss Ask Me Three Transportation: Private vehicle Plan: Sushma will likely discharge home with resumption of her [facility] RN, PT/OT. She will transport home in a private vehicle with her son. Sushma will f/u with her PCP and continue per her plan of care. CM will continue to follow. Social Determinants of Health Screening Social Determinants of health last assessed in clinic: 10/15/24 Will the Patient Participate in the Screening?: Yes Do you worry about having a steady place to live?: no Problems where you live: no known problems In the past 12 months, have you had to go without electric, gas, oil or water in your home?: no 1. Within the past 12 months, we worried whether our food would run out before we got money to buy more.: Never true 2. Within the past 12 months, the food we bought just didn't last and we didn't have money to get more.: Never true Has lack of transportation kept you from medical appointments or from doing things needed for daily living?: no Has anyone in your life made you feel unsafe or unsupported?: no How hard is it for you to pay for the very basics like food, housing, medical care, and heating? Would you say it is:: Not hard at all Do you want help finding or keeping work or a job?: I do not need or want help If for any reason you need help with day-to-day activities such as bathing, preparing meals, shopping, managing finances, etc., do you get the help you need?: I get all the help I need How often do you feel lonely or isolated from those around you?: Never Do you speak a language other than [place] at home?: No Does the patient want assistance with any of the above?: No Anticipated HH Services Anticipated HH Services at Discharge [facility] Resumption, OT, PT and RN Following Provider:
--- NOTE | 2024-10-15 09:27 | PT.INTREAT ---
PT Notes Visit Reasons: HFrEF, atrial fibrillation with RVR, cardiogenic s Physical Therapy Inpatient Treatment Note Date: 10/15/2024 Precautions: Fall. Standard. Activity as tolerated. Arterial line through R FA. Subjective: Better today. Willing to do more for this session. Appreciated the warm blnaket given her and the assistance with pericare after bowel movement. Objective: General Observation: Are[facility]ial [facility] through [facility]. Resting on chair. Telemetry in place. Ornelas catheter in place. Mental Status: Alert and oriented as to person, place, time, and purpose. Able to pay attention, focus, and respond appropriately. Pain: None reported Vital Signs: WNL as closely monitored via tele throughout the short walk for this session Bed Mobility/Transfers: Minimal cueing provided for use of B hands as needed for support, movement sequence, AD management, and posture to reduce fall risk and minimize pain report Sit to stand contact guard assist with FWW Stand to sit contact guard assist with FWW Bed to reclining chair contact guard assist with FWW Chair to bedside commode contact guard assist with FWW Gait: Facilitated safe and correct performance of level surface ambulation covering a distance of60 feet + 60 feet using FWW with stand by assist and arterial pole management of PT. Sandrine slowed. Directional change slowed. Minimal cueing provided for AD management only. NO LOB. Minimal SOB noted. Balance: Static Sitting: Normal Dynamic Sitting: Normal Static Standing: Fair Dynamic Standing: Fair Assessment: Covered more distance today with no increase in symptoms. BP initially was at 170/50s as patient was putting pressure through R forearm where arterial line was placed, inadvertently increasing BP readings. Patient however showed 130s/60s mmHg BP after the walk and off loading of R forearm. No increased SOB, no LOB nor report of increased fatigue. Contiue with mobility progression as tolerated. Nurse Lala is concerned about how patient will manage medication at home and believes that having HH nurse visit will be very beneficial. Patient was also assisted to bedside commode after walking activity and pericare assistance was also provided. Plan of Care/Treatment Plan: 1-2x/day, 7 days/week x 1 week. --Plan to work on stair negotiation and seated/standing level strengthening as tolerated in the next sessions. DISCHARGE RECOMMENDATIONS: [] Home with no services [] [X] Home with services. Patient will benefit from home health PT services in order to progress mobility level using least restrictive assistive ambulatory device, assess home safety, identify additional equipment needs, and establish a functional maintenance program that will increase ability of patient to remain at home. [] Home with outpatient PT [] [] SNF for continued rehabilitation [] [] Senior Living Care [] [] SNF versus LTC based on ability to participate and progress [] TREATMENT CODE/TIME: 70766 x 38 minutes for 3 units (11:36-12:05).
--- NOTE | 2024-10-15 10:53 | W.PM.PROGNOT ---
Date of Service Date of service: 10/15/24 Time of Service: 10:53 Assessment and Plan Assessment and plan (1) Cardiogenic shock: Status: Acute Assessment and plan: Presented in cardiogenic shock. Stabilized after slowing heart rate. Trigger was afib in setting of stopping her amiodarone (and apparently taking atenolol instead) She still appears euvolemic today, skipped her diuretics this morning. With valvular disease I don't want to overdiurese. Arterial line placed for more accurate BPs. MAPs good at times but low at times as well. High pulse pressure, likely related to valvular disease. MAPs totally normal when she is sitting up. Her mentation is good and urine output is excellent indicating adequate perfusion Called [facility] cardiology given complexity of this case, discussed with Dr. Lara, no additional interventions recommended, though he did recommend monitoring her back on her regular meds before discharge. If she is considering valvular intervention we should call to have her scheduled as outpatient. (2) Atrial fibrillation with rapid ventricular response: Status: Acute Assessment and plan: Initially got diltiazem, did not continue given recently diagnosed HFrEF. Stable now back on amiodarone, rate controlled in afib, continue. (3) Acute heart failure with reduced ejection fraction (HFrEF, <= 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: Status: Acute Assessment and plan: She was tolerating MRA, SGLT2i for GDMT at [facility], resume these. Previously on losartan and atenolol but stopped at [facility]. MRA and torsemide held today Continue to monitor closely. We reviewed rationale for all her medicaitons, which she doesn't like to be taking. She will need ongoing encouragement and teaching, home health will also help. Ordered palliative consult. (4) Type 2 diabetes mellitus: Assessment and plan: Last A1c well controlled wihtout medication other than empagliflozin. Monitor, ISS. Sugars have been reasonably controlled. (5) Hypothyroid: Status: Chronic Assessment and plan: previously subclinical, now overt since starting amiodarone. TSH about 5 weeks after starting still high, titrate to 37.5mcg. (6) Acute kidney injury superimposed on CKD: Status: Acute Assessment and plan: Cr was 1.4 on admission, likely secondary to hypotension. Normalized overnight. (7) Anticoagulated on Coumadin: Status: Acute Assessment and plan: Goal 2.5-3.5 with mechanical valve. She is still below this, likely missed doses. Given another 5mg now and follow daily. INR at 2.3, close to goal. Recheck in am Subjective Subjective Interval history since last seen: Pt seen and examined in her room this am. Pt denies any chest pain or sob. POC d/w pt as well as with ICU nurse during ICU huddle Exam Narrative Exam Narrative: GEN: Alert and oriented x 4 No acute distress at rest. LUNGS: Slight basilar rales bilaterally, but good air movement. Intermittent diffuse expiratory wheeze. CV: RRR with 3/6 systolic murmur audible throughout. No gallops, or rubs. ABD: active bowel sounds, soft, nontender and nondistended. No masses. EXT: no cyanosis, clubbing. trace ankle edema Objective Last Vital Signs Temp 37.2 C 10/15/24 08:00 Pulse 71 10/15/24 10:00 Resp 21 10/15/24 10:00 BP 109/40 L 10/14/24 19:56 Pulse Ox 95 10/15/24 10:00 Laboratory Results - last 24 hr 10/15/24 05:35 PT 22.2 H INR 2.3 H Time Spent with Patient Time Spent with Patient: 25-34 minutes Time was spent: preparing to see the patient(eg.review tests), obtaining and/or reviewing separately otained hiistory, ordering medications,tests, procedures, referring, communicating with other health direct care counselor, indepentently interpreting results, counseling the patient and care coordination
[2024-10-15] MEDS: Insulin Aspart 300 UNITS/3 ML PEN SC (12:03)
--- NOTE | 2024-10-15 14:13 | CHAPLAIN ---
Sushma was resting in bed when I visited. She said she expected her son to be in to visit today, but hadn't seen him. She's feeling better today. I'll continue to visit.
[2024-10-15] MEDS: Atorvastatin 10 MG TAB PO (20:07)
[2024-10-15] MEDS: Melatonin 3 MG TAB 6 MG PO (20:07)
[2024-10-16] VITALS (17 sets, daily range): BP systolic 91–131; BP diastolic 32–76; PULSE 55–99; RESP 12–21; TEMP 36.2–37.4; O2SAT 90–98
[2024-10-16] MEDS: Levothyroxine 25 MCG TAB 37.5 MCG PO (05:50)
[2024-10-16 06:31] LABS: Abs Immature Grans 0.12 10^3/uL (0.0-0.06); Absolute Basophil Count 0.04 10^3/uL (0.0-0.2); Absolute Eosinophil Count 0.43 10^3/uL (0.0-0.7); Absolute Lymphocyte Count 0.27 10^3/uL (1.2-3.4); Absolute Monocyte Count 0.53 10^3/uL (0.1-0.8); Absolute Neutrophil Count 4.68 10^3/uL (1.2-6.7); Basophils % 0.7 %; Eosinophils % 7.1 %; HCT 29.9 % (36.0-46.0); HGB 9.8 g/dL (11.2-15.7); Lymphocytes % 4.4 %; MCH 29.9 pg (27.0-33.0); MCHC 32.8 % (32.0-36.0); MCV 91 fL (80-95); MPV 10.1 fL (8.0-11.0); Monocytes % 8.7 %; Neutrophils % 77.1 %; Platelet Count 193 10^3/uL (130-400); RBC 3.28 10^6/uL (3.93-5.22); RDW 16.7 % (11.7-14.6); RDW-SD 55.7 fL; WBC 6.07 10^3/uL (4.4-10.8)
[2024-10-16 06:54] LABS: INR 3.2 (0.9-1.1); Prothrombin Time 29.7 sec (9.1-11.1)
[2024-10-16 07:11] LABS: ALT 65 U/L (14-59); AST 40 U/L (15-37); Albumin 2.9 g/dL (3.4-5.0); Alkaline Phosphatase 110 U/L (46-116); Anion Gap 7.4 mmol/L (3-11); BUN 22 mg/dL (7-18); Bilirubin, Total 0.5 mg/dL (0.2-1.0); CO2 31.6 mmol/L (21.0-32.0); Calcium 8.3 mg/dL (8.5-10.1); Chloride 99 mmol/L (98-107); Estimated GFR 55.21 (mL/min/1.73m2); Glucose 127 mg/dL (74-106); Potassium 3.9 mmol/L (3.5-5.1); Sodium 138 mmol/L (136-145); Total Protein 5.9 g/dL (6.4-8.2)
[2024-10-16] MEDS: Budesonide/Formoterol 160/4.5 6 GM 60 PUFF INH IH ×2 (09:10→20:04)
[2024-10-16] MEDS: Torsemide 20 MG TAB 50 MG PO (09:13)
[2024-10-16] MEDS: Cholecalciferol (Vitamin D3) 1,000 UNIT TAB 1000 UNITS PO (09:13)
[2024-10-16] MEDS: Spironolactone 25 MG TAB PO (09:14)
[2024-10-16] MEDS: Potassium Chloride 10 MEQ TABCR PO (09:14)
[2024-10-16] MEDS: Cetirizine 10 MG TAB PO (09:14)
[2024-10-16] MEDS: Amiodarone 200 MG TAB PO (09:15)
[2024-10-16] MEDS: Empaglifozin 10 MG TAB PO (09:15)
--- NOTE | 2024-10-16 11:17 | W.PC.ACHO ---
Registration Status: Primary Language: Preferred Language: ED Information & Data Chief Complaint RespSymp 10/13/24 17:09 Triage Note patient state she's been 10/13/24 16:08 having SOB for time but it has gotten worsened for the past couple of days. State she is not able to walk to the bathroom without resting . State she has a history of afib and she has been feeling as if her heart has been racing a lot. Denies chest pain or pressure Medical / Surgical History (Last Reviewed 10/14/24 @ 14:18 by Dion Bojorquez MD) Aortic stenosis, moderate Severe tricuspid regurgitation Abscess Bunion Memory deficit Elevated TSH Type 2 diabetes mellitus Hypocalcemia CKD (chronic kidney disease) Facial skin lesion Hyperlipidemia Asthma CAD (coronary artery disease) A-fib HTN (hypertension) Diabetes mellitus Lactose intolerance Osteoporosis Diverticulitis Allergic rhinitis Hiatal hernia Mitral valve stenosis Insomnia Leg cramps (Last Reviewed 10/14/24 @ 14:18 by Dion Bojorquez MD) Status post excisional debridement (~02/2024) Mitral valve replaced History of bladder suspension procedure History of tonsillectomy H/O adenoidectomy Most Recent Vital Signs Temperature 37.4 C 10/16/24 09:00 Temperature Source Temporal Artery Scan 10/16/24 09:00 Pulse 65 10/16/24 10:26 Pulse 71 10/16/24 10:26 Respiratory Rate 16 10/16/24 10:26 Respiratory Effort Normal 10/13/24 22:05 Respiratory Depth Normal 10/13/24 22:05 Respiratory Pattern Normal 10/13/24 22:05 Blood Pressure 131/50 L 10/16/24 10:26 Blood Pressure Mean 74 10/16/24 10:26 Blood Pressure Position Sitting 10/13/24 16:08 Pulse Oximetry 98 10/16/24 10:01 Oxygen Delivery Method Room Air 10/16/24 09:10 Oxygen Flow Rate 0 10/16/24 09:10 Pain Level 0 10/16/24 04:08 Comment unable to ascertain blood pressure 10/13/24 16:08 Comment see provider 10/14/24 13:22 Arterial Systolic 141 10/15/24 13:00 Arterial Diastolic 50 10/15/24 13:00 Arterial Mean 84 10/15/24 13:00 Allergies peanut Allergy (Severe, Verified 08/13/24 20:56) Anaphylaxis anaphylaxis - does not carry an epi pen Penicillins Allergy (Unknown, Verified 08/13/24 20:56) Pt thinks she gets a rash aminophylline Allergy (Verified 08/13/24 20:56) unknown digoxin Allergy (Verified 08/13/24 20:56) unknown enalaprilat (From Vasotec) Allergy (Verified 08/13/24 20:56) unknown tree and shrub pollen Allergy (Verified 08/13/24 20:56) Itching paper tape Allergy (Intermediate, Uncoded 08/13/24 20:56) Skin Rash, red and sore Precautions Isolation Fall precaution 10/13/24 16:49 Active Medications Generic Name Dose Route Start Last Admin Trade Name Freq PRN Reason Stop Dose Admin Amiodarone HCl 200 mg 10/14/24 08:30 10/16/24 09:15 Amiodarone 200 Mg Tab PO 200 mg DAILY HERBERT Administration Atorvastatin Calcium 10 mg 10/14/24 20:00 10/15/24 20:07 Atorvastatin 10 Mg Tab PO 10 mg QPM HERBERT Administration Budesonide/Formoterol Fumarate 2 puff 10/14/24 20:00 10/16/24 09:10 Budesonide/Formoterol 160/4.5 6 Gm 60 Puff Inh IH 2 puffs BID HERBERT Administration Cetirizine HCl 10 mg 10/14/24 08:30 10/16/24 09:14 Cetirizine 10 Mg Tab PO 10 mg QAM HERBERT Administration Cholecalciferol 1,000 units 10/14/24 08:30 10/16/24 09:13 Cholecalciferol (Vitamin D3) 1,000 Unit Tab PO 1,000 units QAM HERBERT Administration Empagliflozin 10 mg 10/14/24 08:30 10/16/24 09:15 Empaglifozin 10 Mg Tab PO 10 mg QAM HERBERT Administration Insulin Aspart 0 units 10/14/24 08:00 10/16/24 09:33 Insulin Aspart 300 Units/3 Ml Pen SC Not Given 0800,1200,1700 [facility] Protocol Melatonin 6 mg 10/14/24 20:00 10/15/24 20:07 Melatonin 3 Mg Tab PO 6 mg HS HERBERT Administration Potassium Chloride 10 meq 10/14/24 08:30 10/16/24 09:14 Potassium Chloride 10 Meq Tabcr PO 10 meq QAM HERBERT Administration Senna/Docusate Sodium 2 tab 10/14/24 08:30 10/16/24 09:33 Sennosides/Docusate Sodium Tab PO Not Given BID HERBERT Spironolactone 25 mg 10/14/24 08:30 10/16/24 09:14 Spironolactone 25 Mg Tab PO 25 mg DAILY HERBERT Administration Torsemide 50 mg 10/14/24 08:30 10/16/24 09:13 Torsemide 20 Mg Tab PO 50 mg DAILY HERBERT Administration Warfarin Sodium 5 mg 10/14/24 20:00 10/15/24 20:08 Warfarin 2.5 Mg Tab PO 5 mg HS HERBERT Administration IV IV Catheter Type [Left Saline Lock Antecubital] IV Catheter Type [Right Saline Lock Antecubital] IV Catheter Gauge [Left 20 Antecubital] IV Catheter Gauge [Right 20 Antecubital] Diagnostics 10/16/24 Range/Units 05:52 WBC 6.07 (4.4-10.8) 10^3/uL RBC 3.28 L (3.93-5.22) 10^6/uL Hgb 9.8 L (11.2-15.7) g/dL Hct 29.9 L (36.0-46.0) % MCV 91 (80-95) fL MCH 29.9 (27.0-33.0) pg MCHC 32.8 (32.0-36.0) % RDW 16.7 H (11.7-14.6) % Plt Count 193 (130-400) 10^3/uL MPV 10.1 (8.0-11.0) fL Immature Gran % 2.0 % Neutrophils % 77.1 % Lymphocytes % 4.4 % Monocytes % 8.7 % Eosinophils % 7.1 % Basophils % 0.7 % Nucleated RBC % 0.0 (0.0-0.3) % Absolute Neutrophils 4.68 (1.2-6.7) 10^3/uL Absolute Lymphocytes 0.27 L (1.2-3.4) 10^3/uL Absolute Monocytes 0.53 (0.1-0.8) 10^3/uL Absolute Eosinophils 0.43 (0.0-0.7) 10^3/uL Absolute Basophils 0.04 (0.0-0.2) 10^3/uL PT 29.7 H (9.1-11.1) sec INR 3.2 H (0.9-1.1) Sodium 138 (136-145) mmol/L Potassium 3.9 (3.5-5.1) mmol/L Chloride 99 (98-107) mmol/L Carbon Dioxide 31.6 (21.0-32.0) mmol/L Anion Gap 7.4 (3-11) mmol/L BUN 22 H (7-18) mg/dL Creatinine 1.0 (0.55-1.02) mg/dL Est GFR (CKD-EPI 2020) 55.21 (mL/min/1.73m2) Glucose 127 H (74-106) mg/dL Calcium 8.3 L (8.5-10.1) mg/dL Total Bilirubin 0.5 (0.2-1.0) mg/dL AST 40 H (15-37) U/L ALT 65 H (14-59) U/L Alkaline Phosphatase 110 (46-116) U/L Total Protein 5.9 L (6.4-8.2) g/dL Albumin 2.9 L (3.4-5.0) g/dL 10/13/24 19:35 Blood Culture - Preliminary Blood NO GROWTH 48 HOURS 10/13/24 19:35 Blood Culture - Preliminary Blood NO GROWTH 48 HOURS [id number] Documentation Fingerstick Glucose Start: 10/13/24 21:37 Freq: .ACHS Status: Active Protocol: Activity Type Activity Date Activity User E-sign Co-sign Detail Recorded Client Recorded Date Recorded By Document 10/16/24 09:12 RODRI RAMÍREZ(3) [id number] 10/16/24 09:13 RORDI RAMÍREZ(4) Intake and Output - 24 Hour Total 10/13/24 16:05 thru 10/16/24 09:42 Intake Total 3815 Output Total 4925 Balance -1110 Weight 62 kg Intake: IV 40 Oral 3775 Output: Urine 4800 Stool 125 Other: Urine Color Yellow Urine Appearance Clear Urine Odor Normal Comment it was mixed with stool so couldn't assess for sediment or clarity Stool Size Moderate Stool Characteristics Soft Formed Brown Urinary Catheter Urinary Catheter Date of 10/13/24 Insertion [Urethral (Ornelas)] Time of insertion [Urethral ( 23:30 Ornelas)] Falls Risk Assessment History of Falls Previous History 10/13/24 22:05 Contributing Factors Unstable 10/13/24 22:05 Ambulatory Aids Uses ambulatory device + 10/13/24 22:05 Tubes/Lines With any additional score 10/13/24 22:05 Gait Evaluation No gait disturbance 10/13/24 22:05 Cognition No cognitive impairment 10/13/24 22:05 Fall Total Score 68 10/13/24 22:05 Level of Risk High Risk 10/13/24 22:05 Problems (Last Reviewed 10/14/24 @ 14:18 by Dion Bojorquez MD) Anemia (Chronic) Acute kidney injury superimposed on CKD (Acute) Hypothyroid (Chronic) Acute heart failure with reduced ejection fraction (HFrEF, <= 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 (Acute) Atrial fibrillation with rapid ventricular response (Acute) Cardiogenic shock (Acute) Anticoagulated on Coumadin (Acute) Notes 10/14/24 16:46 Nursing Notes by Jackie You Nursing Note: Fingersticks not carrying over to the chart. 1645 FS 133. Initialized on 10/14/24 16:46 - END OF NOTE v v v v v v v v v Sending and/or Receiving Nurses: Please use comment section below to note any information pertinent to the patient hand-off not included above. Information / Comments: Report received from: Hansa Celaya, [employer]
[2024-10-16] MEDS: Insulin Aspart 300 UNITS/3 ML PEN SC (12:06)
--- NOTE | 2024-10-16 12:54 | PT.INTREAT ---
PT Notes Visit Reasons: HFrEF, atrial fibrillation with RVR, cardiogenic s Physical Therapy Inpatient Treatment Note Date: 10/16/2024 Precautions: Fall. Standard. Activity as tolerated. Arterial line through R FA. Subjective: Sushma states that she is feeling good. She is happy to be moved into a new room, and is hopeful that she can return home tomorrow. Objective: General Observation: Areterial line through R forearm. Resting on chair. Telemetry in place. Mental Status: Alert and oriented as to person, place, time, and purpose. Able to pay attention, focus, and respond appropriately. Pain: None reported Vital Signs: WNL as closely monitored via tele throughout the short walk for this session Bed Mobility/Transfers: Minimal cueing provided for use of B hands as needed for support, movement sequence, AD management, and posture to reduce fall risk and minimize pain report Sit to stand : SBA with FWW Stand to sit : SBA with FWW Gait: Facilitated safe and correct performance of level surface ambulation covering a distance of 20' x 1, 60'x1, 80'x1 using FWW with stand by assist. Sandrine slowed. NO LOB. Minimal SOB noted. ADLs: Able to toilet with SBA only. Independent with self care, dressing and transfer. Balance: Static Sitting: Normal Dynamic Sitting: Normal Static Standing: Good Dynamic Standing: Fair Assessment: Tolerated increased ambulation well. Improving independence and activity tolerance. Appropriate for d/c home with HH services once medically stable. Plan of Care/Treatment Plan: 1-2x/day, 7 days/week x 1 week. --Plan to work on stair negotiation and seated/standing level strengthening as tolerated in the next sessions. DISCHARGE RECOMMENDATIONS: [X] Home with services. Patient will benefit from home health PT services in order to progress mobility level using least restrictive assistive ambulatory device, assess home safety, identify additional equipment needs, and establish a functional maintenance program that will increase ability of patient to remain at home. TREATMENT CODE/TIME: 55959 x 25 minutes([id number]). Patricia Sanchez, PT, DPT [facility]
--- NOTE | 2024-10-16 16:33 | PGE_ITS ---
Date of Service Date of service: 10/16/24 Time of Service: 16:33 Assessment and Plan Assessment and plan (1) Cardiogenic shock: Status: Acute Assessment and plan: Presented in cardiogenic shock. Stabilized after slowing heart rate. Trigger was afib in setting of stopping her amiodarone (and apparently taking atenolol instead) She still appears euvolemic today, skipped her diuretics this morning. With valvular disease I don't want to overdiurese. Arterial line placed for more accurate BPs. MAPs good at times but low at times as well. High pulse pressure, likely related to valvular disease. MAPs totally normal when she is sitting up. Her mentation is good and urine output is excellent indicating adequate perfusion Called [facility] cardiology given complexity of this case, discussed with Dr. Lara, no additional interventions recommended, though he did recommend monitoring her back on her regular meds before discharge. If she is considering valvular intervention we should call to have her scheduled as outpatient. (2) Atrial fibrillation with rapid ventricular response: Status: Acute Assessment and plan: Initially got diltiazem, did not continue given recently diagnosed HFrEF. Stable now back on amiodarone, rate controlled in afib, continue. (3) Acute heart failure with reduced ejection fraction (HFrEF, <= 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: Status: Acute Assessment and plan: She was tolerating MRA, SGLT2i for GDMT at [facility] [place], resume these. Previously on losartan and atenolol but stopped at [facility]. MRA and torsemide held today Continue to monitor closely. We reviewed rationale for all her medicaitons, which she doesn't like to be taking. She will need ongoing encouragement and teaching, home health will also help. Ordered palliative consult. (4) Type 2 diabetes mellitus: Assessment and plan: Last A1c well controlled wihtout medication other than empagliflozin. Monitor, ISS. Sugars have been reasonably controlled. (5) Hypothyroid: Status: Chronic Assessment and plan: previously subclinical, now overt since starting amiodarone. TSH about 5 weeks after starting still high, titrate to 37.5mcg. 5.17.25 TSH markedly elevated at ~21. Concern for undertreatment vs noncomplinace. Will increase dose but will need follow up labs in 4-6 weeks (6) Acute kidney injury superimposed on CKD: Status: Acute Assessment and plan: Cr was 1.4 on admission, likely secondary to hypotension. Normalized overnight. (7) Anticoagulated on Coumadin: Status: Acute Assessment and plan: Goal 2.5-3.5 with mechanical valve. She is still below this, likely missed doses. Given another 5mg now and follow daily. INR at 2.3, close to goal. Recheck in am 10/16/24 INR at goal 3.2 Will recheck in am as well Subjective Subjective Interval history since last seen: No new complaints, slept well Exam Narrative Exam Narrative: GEN: Alert and oriented x 4 No acute distress at rest. LUNGS: Slight basilar rales bilaterally, but good air movement. Intermittent diffuse expiratory wheeze. CV: RRR with 3/6 systolic murmur audible throughout. No gallops, or rubs. ABD: active bowel sounds, soft, nontender and nondistended. No masses. EXT: no cyanosis, clubbing. trace ankle edema Objective Last Vital Signs Temp 36.6 C 10/16/24 15:13 Pulse 75 10/16/24 15:13 Resp 12 10/16/24 15:13 BP 118/76 10/16/24 15:13 Pulse Ox 97 10/16/24 15:13 Laboratory Results - last 24 hr 10/16/24 05:52 WBC 6.07 RBC 3.28 L Hgb 9.8 L Hct 29.9 L MCV 91 MCH 29.9 MCHC 32.8 RDW 16.7 H Plt Count 193 MPV 10.1 Immature Gran % 2.0 Neutrophils % 77.1 Lymphocytes % 4.4 Monocytes % 8.7 Eosinophils % 7.1 Basophils % 0.7 Nucleated RBC % 0.0 Absolute Neutrophils 4.68 Absolute Lymphocytes 0.27 L Absolute Monocytes 0.53 Absolute Eosinophils 0.43 Absolute Basophils 0.04 PT 29.7 H INR 3.2 H Sodium 138 Potassium 3.9 Chloride 99 Carbon Dioxide 31.6 Anion Gap 7.4 BUN 22 H Creatinine 1.0 Est GFR (CKD-EPI 2020) 55.21 Glucose 127 H Calcium 8.3 L Total Bilirubin 0.5 AST 40 H ALT 65 H Alkaline Phosphatase 110 Total Protein 5.9 L Albumin 2.9 L Time Spent with Patient Time Spent with Patient: <25 minutes Time was spent: preparing to see the patient(eg.review tests), obtaining and/or reviewing separately otained hiistory, ordering medications,tests, procedures, referring, communicating with other health resident caregiver, indepentently interpreting results, counseling the patient and care coordination
[2024-10-16] MEDS: Atorvastatin 10 MG TAB PO (19:47)
[2024-10-16] MEDS: Melatonin 3 MG TAB 6 MG PO (19:48)
[2024-10-17] VITALS (8 sets, daily range): BP systolic 94–116; BP diastolic 29–61; PULSE 60–94; RESP 16–18; TEMP 36–37.3; O2SAT 94–98
[2024-10-17] MEDS: Levothyroxine 75 MCG TAB PO (05:27)
[2024-10-17 06:27] LABS: Abs Immature Grans 0.13 10^3/uL (0.0-0.06); Absolute Basophil Count 0.05 10^3/uL (0.0-0.2); Absolute Eosinophil Count 0.35 10^3/uL (0.0-0.7); Absolute Lymphocyte Count 0.31 10^3/uL (1.2-3.4); Absolute Monocyte Count 0.56 10^3/uL (0.1-0.8); Absolute Neutrophil Count 4.32 10^3/uL (1.2-6.7); Basophils % 0.9 %; Eosinophils % 6.1 %; HCT 32.6 % (36.0-46.0); HGB 10.5 g/dL (11.2-15.7); Immature Grans % 2.3 %; Lymphocytes % 5.4 %; MCH 29.4 pg (27.0-33.0); MCHC 32.2 % (32.0-36.0); MCV 91 fL (80-95); MPV 9.7 fL (8.0-11.0); Monocytes % 9.8 %; Neutrophils % 75.5 %; Platelet Count 189 10^3/uL (130-400); RBC 3.57 10^6/uL (3.93-5.22); RDW 16.8 % (11.7-14.6); RDW-SD 56.1 fL; WBC 5.72 10^3/uL (4.4-10.8)
[2024-10-17 06:35] LABS: INR 3.7 (0.9-1.1); Prothrombin Time 33.7 sec (9.1-11.1)
[2024-10-17 06:41] LABS: ALT 51 U/L (14-59); AST 28 U/L (15-37); Alkaline Phosphatase 116 U/L (46-116); Anion Gap 4.5 mmol/L (3-11); BUN 24 mg/dL (7-18); Bilirubin, Total 0.5 mg/dL (0.2-1.0); CO2 32.5 mmol/L (21.0-32.0); CREATININE 1.1 mg/dL (0.55-1.02); Calcium 8.7 mg/dL (8.5-10.1); Chloride 101 mmol/L (98-107); Estimated GFR 49.24 (mL/min/1.73m2); Glucose 137 mg/dL (74-106); Potassium 3.7 mmol/L (3.5-5.1); Sodium 138 mmol/L (136-145); Total Protein 6.2 g/dL (6.4-8.2)
[2024-10-17] MEDS: Potassium Chloride 10 MEQ TABCR PO (08:17)
[2024-10-17] MEDS: Torsemide 20 MG TAB 50 MG PO (08:17)
[2024-10-17] MEDS: Spironolactone 25 MG TAB PO (08:17)
[2024-10-17] MEDS: Insulin Aspart 300 UNITS/3 ML PEN SC (08:17)
[2024-10-17] MEDS: Amiodarone 200 MG TAB PO (08:17)
[2024-10-17] MEDS: Cetirizine 10 MG TAB PO (08:17)
[2024-10-17] MEDS: Empaglifozin 10 MG TAB PO (08:17)
[2024-10-17] MEDS: Cholecalciferol (Vitamin D3) 1,000 UNIT TAB 1000 UNITS PO (08:17)
[2024-10-17] MEDS: Budesonide/Formoterol 160/4.5 6 GM 60 PUFF INH IH ×2 (08:56→19:59)
--- NOTE | 2024-10-17 08:58 | PT.INTREAT ---
PT Notes Visit Reasons: HFrEF, atrial fibrillation with RVR, cardiogenic s Physical Therapy Inpatient Treatment Note Date: 10/17/2024 Precautions: Fall. Standard. Activity as tolerated. Arterial line through R FA. Subjective: Sushma states that she is feeling good. She is agreeable to walking. Objective: General Observation: Areterial line through R forearm. Resting on chair. Telemetry in place. Mental Status: Alert and oriented as to person, place, time, and purpose. Able to pay attention, focus, and respond appropriately. Pain: None reported Vital Signs: WNL as closely monitored via tele throughout the short walk for this session Bed Mobility/Transfers: Minimal cueing provided for use of B hands as needed for support, movement sequence, AD management, and posture to reduce fall risk and minimize pain report Sit to stand : SBA with FWW Stand to sit : SBA with FWW Gait: Facilitated safe and correct performance of level surface ambulation covering a distance of 100' using FWW with stand by assist. Sandrine slowed. NO LOB. Increased SOB, requiring 1 standing rest.Post-ambulation, HR 70. Nursing notified and RT present. Balance: Static Sitting: Normal Dynamic Sitting: Normal Static Standing: Good Dynamic Standing: Fair Assessment: Increased shortness of breath with longer distance ambulation. Held on further exercises this am due to CARRILLO. Appropriate for d/c home with HH services once medically stable. Plan of Care/Treatment Plan: 1-2x/day, 7 days/week x 1 week. --Plan to work on stair negotiation and seated/standing level strengthening as tolerated in the next sessions. DISCHARGE RECOMMENDATIONS: [X] Home with services. Patient will benefit from home health PT services in order to progress mobility level using least restrictive assistive ambulatory device, assess home safety, identify additional equipment needs, and establish a functional maintenance program that will increase ability of patient to remain at home. TREATMENT CODE/TIME: 14455 x 15 minutes([id number]). Patricia Sanchez, PT, DPT [facility]
--- NOTE | 2024-10-17 12:13 | W.PM.PROGNOT ---
Date of Service Date of service: 10/17/24 Time of Service: 12:13 Objective Last Vital Signs Temp 36.5 C 10/17/24 11:19 Pulse 70 10/17/24 11:19 Resp 18 10/17/24 11:19 BP 113/29 L 10/17/24 11:19 Pulse Ox 98 10/17/24 11:19 Laboratory Results - last 24 hr 10/17/24 06:16 WBC 5.72 RBC 3.57 L Hgb 10.5 L Hct 32.6 L MCV 91 MCH 29.4 MCHC 32.2 RDW 16.8 H Plt Count 189 MPV 9.7 Immature Gran % 2.3 Neutrophils % 75.5 Lymphocytes % 5.4 Monocytes % 9.8 Eosinophils % 6.1 Basophils % 0.9 Nucleated RBC % 0.0 Absolute Neutrophils 4.32 Absolute Lymphocytes 0.31 L Absolute Monocytes 0.56 Absolute Eosinophils 0.35 Absolute Basophils 0.05 PT 33.7 H INR 3.7 H Sodium 138 Potassium 3.7 Chloride 101 Carbon Dioxide 32.5 H Anion Gap 4.5 BUN 24 H Creatinine 1.1 H Est GFR (CKD-EPI 2020) 49.24 Glucose 137 H Calcium 8.7 Total Bilirubin 0.5 AST 28 ALT 51 Alkaline Phosphatase 116 Total Protein 6.2 L Albumin 3.0 L Time Spent with Patient Time Spent with Patient: 25-34 minutes Time was spent: preparing to see the patient(eg.review tests), obtaining and/or reviewing separately otained hiistory, ordering medications,tests, procedures, referring, communicating with other health care program director, indepentently interpreting results, counseling the patient and care coordination
--- NOTE | 2024-10-17 13:04 | PT.INTREAT ---
PT Notes Visit Reasons: HFrEF, atrial fibrillation with RVR, cardiogenic s Physical Therapy Inpatient Treatment Note Date: 10/17/2024 (pm session) Precautions: Fall. Standard. Activity as tolerated. Arterial line through R FA. Subjective: Sushma states that she is a little short of breath, which is not unusal for her. She is agreeable to walking. Objective: General Observation: IV R forearm. Resting in bed. Telemetry in place. Mental Status: Alert and oriented as to person, place, time, and purpose. Able to pay attention, focus, and respond appropriately. Pain: None reported Vital Signs: WNL as closely monitored via tele throughout the short walk for this session Bed Mobility/Transfers: Minimal cueing provided for use of B hands as needed for support, movement sequence, AD management, and posture to reduce fall risk and minimize pain report supine-sit: supervision sit-supine: supervision Sit to stand : SBA with FWW Stand to sit : SBA with FWW Gait: Facilitated safe and correct performance of level surface ambulation covering a distance of 80' x 2 using FWW with stand by assist. Sandrine slowed. NO LOB. Seated rest period x 3 minutes for recovery. Post-ambulation, HR ranging between 47-65. Balance: Static Sitting: Normal Dynamic Sitting: Normal Static Standing: Good Dynamic Standing: Fair Assessment: Tolerates household distance ambulation well. Appropriate for d/c home with HH services once medically stable. Plan of Care/Treatment Plan: 1-2x/day, 7 days/week x 1 week. --Plan to work on stair negotiation and seated/standing level strengthening as tolerated in the next sessions. DISCHARGE RECOMMENDATIONS: [X] Home with services. Patient will benefit from home health PT services in order to progress mobility level using least restrictive assistive ambulatory device, assess home safety, identify additional equipment needs, and establish a functional maintenance program that will increase ability of patient to remain at home. TREATMENT CODE/TIME: 41171 x 15 minutes(2403-2186). Patricia Sanchez, PT, DPT [facility]
[2024-10-17] MEDS: Atorvastatin 10 MG TAB PO (19:39)
[2024-10-17] MEDS: Sennosides/Docusate Sodium TAB 2 TAB PO (19:40)
[2024-10-17] MEDS: Melatonin 3 MG TAB 6 MG PO (19:41)
[2024-10-18 03:14] VITALS: BP 108/56
[2024-10-18] MEDS: Levothyroxine 75 MCG TAB PO (06:10)
[2024-10-18 06:40] LABS: Abs Immature Grans 0.13 10^3/uL (0.0-0.06); Absolute Basophil Count 0.06 10^3/uL (0.0-0.2); Absolute Eosinophil Count 0.32 10^3/uL (0.0-0.7); Absolute Monocyte Count 0.57 10^3/uL (0.1-0.8); Eosinophils % 5.4 %; HCT 32.5 % (36.0-46.0); HGB 10.7 g/dL (11.2-15.7); Immature Grans % 2.2 %; Lymphocytes % 5.1 %; MCH 29.9 pg (27.0-33.0); MCHC 32.9 % (32.0-36.0); MCV 91 fL (80-95); MPV 10.2 fL (8.0-11.0); Monocytes % 9.7 %; Neutrophils % 76.6 %; Platelet Count 212 10^3/uL (130-400); RBC 3.58 10^6/uL (3.93-5.22); RDW 16.8 % (11.7-14.6); RDW-SD 55.8 fL; WBC 5.88 10^3/uL (4.4-10.8)
[2024-10-18 06:55] LABS: Prothrombin Time 35.1 sec (9.1-11.1)
[2024-10-18 06:56] LABS: INR 3.8 (0.9-1.1)
[2024-10-18 07:13] LABS: ALT 42 U/L (14-59); AST 27 U/L (15-37); Albumin 3.1 g/dL (3.4-5.0); Alkaline Phosphatase 111 U/L (46-116); BUN 27 mg/dL (7-18); Bilirubin, Total 0.6 mg/dL (0.2-1.0); CREATININE 1.3 mg/dL (0.55-1.02); Calcium 9.1 mg/dL (8.5-10.1); Chloride 100 mmol/L (98-107); Glucose 127 mg/dL (74-106); Potassium 3.8 mmol/L (3.5-5.1); Sodium 138 mmol/L (136-145); Total Protein 6.4 g/dL (6.4-8.2)
[2024-10-18 07:36] VITALS: BP 129/54; PULSE 67; RESP 18; TEMP 36.5; O2SAT 97
[2024-10-18] MEDS: Sennosides/Docusate Sodium TAB 2 TAB PO (07:54)
[2024-10-18] MEDS: Torsemide 20 MG TAB 50 MG PO (07:54)
[2024-10-18] MEDS: Cetirizine 10 MG TAB PO (07:54)
[2024-10-18] MEDS: Spironolactone 25 MG TAB PO (07:54)
[2024-10-18] MEDS: Empaglifozin 10 MG TAB PO (07:55)
[2024-10-18] MEDS: Cholecalciferol (Vitamin D3) 1,000 UNIT TAB 1000 UNITS PO (07:55)
[2024-10-18] MEDS: Amiodarone 200 MG TAB PO (07:55)
[2024-10-18] MEDS: Potassium Chloride 10 MEQ TABCR PO (07:55)
[2024-10-18] MEDS: Insulin Aspart 300 UNITS/3 ML PEN SC (07:55)
[2024-10-18] MEDS: Budesonide/Formoterol 160/4.5 6 GM 60 PUFF INH IH (08:23)
--- NOTE | 2024-10-18 09:52 | PT.INTREAT ---
PT Notes Visit Reasons: HFrEF, atrial fibrillation with RVR, cardiogenic s Physical Therapy Inpatient Treatment Note Date: 10/18/2024 Precautions: Fall. Standard. Activity as tolerated. Arterial line through R FA. Subjective: Reported about her BP acting up, said it was on the low side this morning. Agreeable to walking with PT albeit slowly. Objective: General Observation: Resting on chair. Telemetry in place. Mental Status: Alert and oriented as to person, place, time, and purpose. Able to pay attention, focus, and respond appropriately. Pain: None reported Vital Signs: WNL as closely monitored via tele throughout the short walk for this session Bed Mobility/Transfers: Minimal cueing provided for use of B hands as needed for support, movement sequence, AD management, and posture to reduce fall risk and minimize pain report Sit to stand stand by assist with FWW Stand to sit stand by assist with FWW Bed to reclining chair stand by assist with FWW Chair to bedside commode stand by assist with FWW Gait: Facilitated safe and correct performance of level surface ambulation covering a distance of 150 feet + 75 feet + 100 feet using FWW with stand by assist and wheelchair follow of PT. 3 seated rests done to minimize fatigue and ensure safety. Sandrine slowed. Directional change slowed. Minimal cueing provided for AD management only. NO LOB. Minimal SOB noted. Denied headache, chest pain, nd lightheadedness throughout session. Did report mild fatigue and minimal SOB. Stairs: Guided patient with safe megaotiation of 2 x 4-inch steps while holding onto 1 rail and using a SPC on the other side with step-to gait pattern with conatct guard assist of PT. Moderate shortness of breath resolved with 2-3 minutes of rest. Balance: Static Sitting: Normal Dynamic Sitting: Normal Static Standing: Fair Dynamic Standing: Fair Assessment: 3 seated rests encouraged to minimze effects of hypotension and fatigue. Gait speed somewhat decreased. Patient understands the improatnce of resting before fatigue onset. She will only cover 30-40 feet of distance at a time inside her mobile home using her 4WW. Agreeabele to PT continuing post-hospital rehab to progress strength, balance, activity tolerance, and mobility level. Plan of Care/Treatment Plan: 1-2x/day, 7 days/week x 1 week for graduated strengthening, balance skilling, and mobility progression. DISCHARGE RECOMMENDATIONS: [] Home with no services [] [X] Home with services. Patient will benefit from home health PT services in order to progress mobility level using least restrictive assistive ambulatory device, assess home safety, identify additional equipment needs, and establish a functional maintenance program that will increase ability of patient to remain at home. [] Home with outpatient PT [] [] SNF for continued rehabilitation [] [] Intermediate Care [] [] SNF versus LTC based on ability to participate and progress [] TREATMENT CODE/TIME: 74343 x 39 minutes for 3 units (09:52-10:31).
[2024-10-18 11:45] VITALS: BP 105/50; PULSE 68; RESP 18; TEMP 36.4; O2SAT 96
--- NOTE | 2024-10-18 12:36 | W.PM.DS.N ---
Date of service: 10/18/24 Time of Service: 12:37 DS: Diagnosis Discharge Diagnosis (1) Cardiogenic shock: Status: Acute (2) Atrial fibrillation with rapid ventricular response: Status: Acute (3) Acute heart failure with reduced ejection fraction (HFrEF, <= 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: Status: Acute (4) Type 2 diabetes mellitus: (5) Hypothyroid: Status: Chronic (6) Acute kidney injury superimposed on CKD: Status: Acute (7) Anticoagulated on Coumadin: Status: Acute Discharge Plan Disposition Patient Disposition: Home W/Home Health Services Condition: Stable Discharge Details Reason For Visit: HFrEF, atrial fibrillation with RVR, cardiogenic s Admit Date/Time: 10/13/24 21:03 Admit Provider: Portillo Shelley Attending Provider: Portillo Shelley Primary Care Provider: Mell Cueto Hospital Course Hospital Course: History of Present Illness History of Present Illness Chief Complaint: sob Narrative: 84 yo F with history of mechanical mitral valve replacement on warfarin, severe TR, non-obstructive CAD, atrial fibrillation, HRrEF, CKD3, anemia, type 2 DM with A1c 6.7% and asthma who was recently discharged home from health and rehab after [place] [facility] [place] who presented with shortness of breath starting the afternoon of admission. She presented on 08/14 with profound fluid overload/CHF in setting of atrial fibrillation with RVR and was transferred [place] [facility] [place] her complexity. She was diuresed and had an echocardiogram that showed LVEF 20-25% and severe TR and moderate . She had a cardiac cath 08/21 that showed non-obstrucitve ASCVD. She had NSTEMI that was felt to be demand ischemia. She was started on amiodarone for rate control and atenolol stopped. She was changed from furosemide 80mg to 50mg torsemide daily and her discharge weight was 137lbs. Her TSH was high and she was started on levothyroxine. She was treated for pneumonia for 7 days during that admission as well. She transtioned to health and rehab for reconditioning after discharge. She felt well when she went home. She states she didn't have her new medications so she went back to her old mediations from her PCP, including atenolol. She continued to feel okay for a couple days but after lunch today she started feeling short of breath. No chest pain or palpitations or dizziness. She did feel a little generally weak and fatigued. No cough or cold symtpoms. No GI or symptoms. No bleeding. She went to see Dr. Cueto who sent her to the ED. In the ED she was hypotensive as low as 60s/30s and was in atrial fibrillation with RVR in 120s. POCUS showed poor filling, reduced LVEF, plump IVC. She was initially given 5mg of diltiazem which did slow her rate and improve her blood pressure and appearence. After clarification of her history, she was given 150mg amiodarone. She feels better now, less short of breath, but still tired. Assessment and plan (1) Cardiogenic shock: Status: Acute Assessment and plan: Presented in cardiogenic shock. Stabilized after slowing heart rate. She has adequate fluid, with valvular disease I don't want to diurese her more. She should go to ICU for close monitoring. This appears to have been caused by never filling amiodarone after leaving rehab, resuming atenolol. (2) Atrial fibrillation with rapid ventricular response: Status: Acute Assessment and plan: Initially got diltiazem, did not continue given recently diagnosed HFrEF. Stable now on amiodarone, continue. (3) Acute heart failure with reduced ejection fraction (HFrEF, <= 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: Status: Acute Assessment and plan: She was tolerating MRA, SGLT2i for GDMT [place] [facility] [place], resume these. Previously on losartan and atenolol but [facility]. Monitor closely. We reviewed rationale for all her medicaitons, which she doesn't like to be taking. She will need ongoing encouragement and teaching, home health will also help. Get palliative consult. (4) Type 2 diabetes mellitus: Assessment and plan: Last A1c well controlled wihtout medication other than empagliflozin. Monitor, ISS (5) Hypothyroid: Status: Chronic Assessment and plan: previously subclinical, now overt since starting amiodarone. TSH now about 5 weeks after starting. (6) Acute kidney injury superimposed on CKD: Status: Acute Assessment and plan: Cr was around 1 at discharge, now 1.4, likely secondary to hypotension. Follow. (7) Anticoagulated on Coumadin: Status: Acute Assessment and plan: Goal 2.5-3.5 with mechanical valve. She is below this, may have missed doses. Given 5mg now and follow daily. (8) Anemia: Status: Chronic Assessment and plan: Mild, likely CKD related, h/o iron deficiency that imrpoved. Current h/h above level at [place] [facility] [place] The patient was originally admitted to the ICU for cardiogenic shock. Apparently she had quit taking her medications and had acute exacerbation of her CHF. Of note her TSH was over 20 which would indicate either noncompliance or significant undertreatment. The patient does take Coumadin for a mitral valve replacement with a mechanical valve. Her INR on admission was 2.3 and is currently 3.8. In reviewing her old record she does have quite a labile values with as low as 1.2 is high as over 7. The patient's blood pressure is better today and concerning her wishes, I agreed to discharge her home. I will send her home with home health care for nursing as apparently she has had difficulties keeping track of her medications as well as her Coumadin level. In regards to her levothyroxine dose I will continue with her current dose as I have questions about noncompliance. It is imperative that the patient follow-up with her PCP as soon as possible. Prescriptions for amiodarone Symbicort Aldactone and torsemide have been sent to her pharmacy. The patient's DANIELLE inhibitor as well as her beta-logan will be held secondary to concerns for blood pressure as well as bradycardia. I will add that the patient's INR is currently supratherapeutic but not horribly so. Considering the patient's issues with noncompliance my plan is to just continue with Coumadin and get an INR in the outpatient setting. Patient does her own INR checks and will need to have her medications titrated as appropriate. Home Meds and New Rx's Prescriptions: New amiodarone [Pacerone] 200 mg Tablet 200 mg PO DAILY Qty: 30 0RF spironolactone 25 mg Tablet 25 mg PO DAILY Qty: 30 0RF levothyroxine 75 mcg Tablet 37.5 mcg PO DAILY@0600 Qty: 30 0RF budesonide-formoterol [Symbicort] 160-4.5 mcg/actuation Hfa Aerosol Inhaler 2 puff inhalation BID Qty: 10.2 0RF torsemide 20 mg Tablet 50 mg PO DAILY Qty: 30 0RF Continued albuterol sulfate 2.5 mg/0.5 mL solution for nebulization 5 mg inhalation Q4H zolpidem 5 mg tablet 5 mg PO QHS fluticasone propionate [Flonase Allergy Relief] 50 mcg/actuation spray,suspension 2 spray intranasal DAILY Rx Instructions: administer into each nostril Jardiance 25 mg tablet 10 mg PO DAILY ipratropium-albuterol 0.5 mg-3 mg(2.5 mg base)/3 mL solution for nebulization 3 ml INHALATION QID Patient Comments: INHALE 3 MLS 4 TIMES A DAY BY NEBULIZATION ROUTE cetirizine 10 mg tablet 10 mg PO QAM Patient Comments: TK 1 T PO D PRN cholecalciferol (vitamin D3) [Vitamin D3] 25 mcg (1,000 unit) tablet 1,000 unit PO QAM Patient Comments: TAKE 1 TABLET BY MOUTH ONCE DAILY atorvastatin [Lipitor] 10 mg Tablet 10 mg PO QPM potassium chloride 10 mEq tablet,ER particles/crystals 10 meq PO QAM Patient Comments: TK 1 T PO QD warfarin 5 mg tablet 2.5 - 5 mg PO DIRECTED PRN Patient Comments: TK 1 T PO D UTD Rx Instructions: 2.5 M/ - 5 all other days alendronate 70 mg tablet 70 mg PO DIRECTED Patient Comments: TK 1 T PO WEEKLY ON AN EMPTY STOMACH WITH BIG GLASS OF WATER DONT LIE DOWN FOR AN HOUR Rx Instructions: weekly No Action albuterol sulfate [ProAir HFA] 90 mcg/actuation Hfa Aerosol Inhaler 2 puff inhalation QID PRN PRN Discharge Instructions Stand Alone Forms: Nursing Discharge Form Referrals: Anaid Burnett MD [ [facility] STAFF PHYSICIAN] - (follow up in 5-7 days) Mell Cueto MD [Primary Care Provider] - 10/22/24 11:00 am Activity:: Activity as Tolerated Equipment/Supplies:: No Equipment Needed Diet:: As Tolerated Discharge Orders Discharge Orders: Discharge Order (Routine); Ordered 10/18/24 Ordered By: Portillo Shelley DS: Summary Time Spent with Patient providing and/or coordinating discharge services: Greater than 30 minutes Status at Discharge Functional status at discharge: independent ambulation Overall status at discharge: patient is progressing back to baseline Mental Status: mental status grossly normal Speech and Movement: speech and movement normal Mood: congruent mood Affect: normal affect Quality:SDOH Health Related Social Needs: No Data to Display Exam Narrative Exam Narrative: GEN: Alert and oriented x 4 No acute distress at rest. LUNGS: Slight basilar rales bilaterally, but good air movement. Intermittent diffuse expiratory wheeze. CV: RRR with 3/6 systolic murmur audible throughout. No gallops, or rubs. ABD: active bowel sounds, soft, nontender and nondistended. No masses. EXT: no cyanosis, clubbing. trace ankle edema Psych Mental Status: mental status grossly normal Speech and Movement: speech and movement normal Mood: congruent mood Affect: normal affect DS: Data Vitals/I&O Vitals and I&O: Vital Signs Temperature 36.4 C L 10/18/24 11:45 Temperature Source Temporal Artery Scan 10/18/24 11:45 Pulse 68 10/18/24 11:45 Pulse 71 10/16/24 10:26 Respiratory Rate 18 10/18/24 11:45 Respiratory Effort Normal 10/13/24 22:05 Respiratory Depth Normal 10/13/24 22:05 Respiratory Pattern Normal 10/13/24 22:05 Blood Pressure 105/50 L 10/18/24 11:45 Blood Pressure Mean 68 10/18/24 11:45 Blood Pressure Position Sitting 10/13/24 16:08 Pulse Oximetry 96 10/18/24 11:45 Oxygen Delivery Method Room Air 10/18/24 11:45 Oxygen Flow Rate 0 10/18/24 11:45 Pain Level 0 10/18/24 11:45 Comment pt requested to not be woken for 0300 VS, this nurse requested at least a BP 10/18/24 03:14 Comment see provider 10/14/24 13:22 Arterial Systolic 141 10/15/24 13:00 Arterial Diastolic 50 10/15/24 13:00 Arterial Mean 84 10/15/24 13:00 Intake & Output 10/17/24 10/18/24 10/18/24 23:59 11:59 23:59 Intake Total 400 / 400 620 / 620 Balance 400 / -250 620 / 620 Weight 63.1 kg Intake: Oral 400 / 400 620 / 620 Other: Urine Color Pale Pale Yellow Yellow Urine Appearance Clear Clear Urine Odor None Comment unmeasured, large amount. unmeasured, lvoid in toilet Data Completed and Pending Labs on day of discharge: Labs from last 24 hours 10/18/24 06:02: WBC 5.88, RBC 3.58 L, Hgb 10.7 L, Hct 32.5 L, MCV 91, MCH 29.9, MCHC 32.9, RDW 16.8 H, Plt Count 212, MPV 10.2, Immature Gran % 2.2, Neutrophils % 76.6, Lymphocytes % 5.1, Monocytes % 9.7, Eosinophils % 5.4, Basophils % 1.0, Nucleated RBC % 0.0, Absolute Neutrophils 4.50, Absolute Lymphocytes 0.30 L, Absolute Monocytes 0.57, Absolute Eosinophils 0.32, Absolute Basophils 0.06, PT 35.1 H, INR 3.8 H, Sodium 138, Potassium 3.8, Chloride 100, Carbon Dioxide 28.0, Anion Gap 10.0, BUN 27 H, Creatinine 1.3 H, Est GFR (CKD-EPI 2020) 40.30, Glucose 127 H, Calcium 9.1, Total Bilirubin 0.6, AST 27, ALT 42, Alkaline Phosphatase 111, Total Protein 6.4, Albumin 3.1 L Preliminary micro results at discharge 10/13/24 19:35 Blood Blood Culture - Preliminary NO GROWTH 96 HOURS 10/13/24 19:35 Blood Blood Culture - Preliminary NO GROWTH 96 HOURS PFSH All Active Problems Anemia (Chronic) Acute kidney injury superimposed on CKD (Acute) Hypothyroid (Chronic) Acute heart failure with reduced ejection fraction (HFrEF, <= 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 (Acute) Cardiomyopathy (Acute) Atrial fibrillation with rapid ventricular response (Acute) Cardiogenic shock (Acute) Heart failure with reduced ejection fraction (Acute) Iron refractory iron deficiency anemia (Acute) Nonhealing nonsurgical wound with fat layer exposed (Acute) Wound of left lower extremity (Acute) Anticoagulated on Coumadin (Acute) Lesion of skin of nose (Acute) Conductive hearing loss in right ear (Acute 02/23/15) Mixed conductive and sensorineural hearing loss of right ear with restricted hearing of left ear (Acute 07/25/16) Sensorineural hearing loss (SNHL) of left ear with restricted hearing of right ear (Acute 07/25/16) Sensorineural hearing loss, bilateral (Acute 02/25/17) Medical History Aortic stenosis, moderate Severe tricuspid regurgitation Abscess Bunion Memory deficit Elevated TSH Type 2 diabetes mellitus Hypocalcemia CKD (chronic kidney disease) Facial skin lesion Hyperlipidemia Asthma CAD (coronary artery disease) A-fib HTN (hypertension) Diabetes mellitus Lactose intolerance Osteoporosis Diverticulitis Allergic rhinitis Hiatal hernia Mitral valve stenosis Insomnia Leg cramps Surgical History Status post excisional debridement (~02/2024) Left Leg Mitral valve replaced History of bladder suspension procedure History of tonsillectomy H/O adenoidectomy Family History Father , d. 60 Throat cancer Mother , d. 80 Heart disease Social History Smoking/Tobacco Use Status: Never Smoking risk assessment performed?: Yes Alcohol Intake: never Drug use: Never Substance use type: does not use Household members: none Housing: other Number of Children: 4 Do you feel safe at home: Yes Do you feel safe in your relationship?: Yes Additional Social history: . lives alone in home on [address]. son lives nearby Time Spent with Patient Time Spent with Patient: 45-69 minutes Time was spent: preparing to see the patient(eg.review tests), obtaining and/or reviewing separately otained hiistory, ordering medications,tests, procedures, referring, communicating with other health senior caregiver, indepentently interpreting results, counseling the patient and care coordination
--- NOTE | 2024-10-18 12:56 | CMDISCH_ITS ---
Date of service: 10/18/24 Time of Service: 12:58 LACE Index Scoring Tool Questions: Length of Stay (in days): 4 - 6 Was the patient admitted via the E.D.?: Yes Comorbidities: Previous M.I., Diabetes w/o Complication, Congestive Heart Failure and Mild Liver/Renal Disease E.D. Visits: 3 Answers: Total Score: 15 Risk of Readmission: High Risk Care Management Discharge Plan Reason for Hospitalization: shock, afib Discharge Plan: Sushma is being discharged home today with resumption of her [facility] SN,PT/OT. Sushma will f/u with her PCP on 10/22 and continue per her plan of care. Sushma will transport home with her son, Art. Patient/Family Education Needs: Review of discharge instructions, activity, limitations, and discuss ask me 3. Services Needed at Discharge: Home Health Care Services (resume SN, PT/OT) [facility] Health Related Social Needs: No Data to Display
== END 2024-10-18 13:50 | disposition home health service (06) | DRG 291 ==
LOC: ER 21:46 → ICU 21:58 → MS 10-16 11:46
PROVIDERS: Family Medicine; Admitting Provider Hospitalist; Emergency Provider Emergency Medicine Emergency Medical Services; PCP Family Medicine; Responsible Provider Hospitalist; Visit Provider Hospitalist
DX: I13.0 Hypertensive heart and chronic kidney disease with heart failure and stage 1 through stage 4 chronic kidney disease, or unspecified chronic kidney disease (principal); I50.41 Acute combined systolic (congestive) and diastolic (congestive) heart failure; R57.0 Cardiogenic shock; N17.9 Acute kidney failure, unspecified; I42.9 Cardiomyopathy, unspecified; I48.91 Unspecified atrial fibrillation; E11.22 Type 2 diabetes mellitus with diabetic chronic kidney disease; E03.9 Hypothyroidism, unspecified; I25.10 Atherosclerotic heart disease of native coronary artery without angina pectoris; I07.1 Rheumatic tricuspid insufficiency; N18.30 Chronic kidney disease, stage 3 unspecified; J45.909 Unspecified asthma, uncomplicated; H90.3 Sensorineural hearing loss, bilateral; I44.7 Left bundle-branch block, unspecified; I27.20 Pulmonary hypertension, unspecified; D50.9 Iron deficiency anemia, unspecified; I25.2 Old myocardial infarction; Z79.01 Long term (current) use of anticoagulants; Z95.2 Presence of prosthetic heart valve; Z79.84 Long term (current) use of oral hypoglycemic drugs
CPT/HCPCS: 36620; 00123; 36415; 76604; 76705; 76775; 80048; 80053; 87040; 93005; 93308; 94640; 96374; 96375; 97110; 97161; 97530; 99291; 71045; 83735; 83880; 84443; 84484; 85025; 85610; 93010; 94664; 94760; 99223; 99231; 99232; 99233; 99239; J0282; J1815

== ENCOUNTER 2024-10-20 11:55 | Outpatient (REF) | payer MEDICARE, MEDICAID, SELFPAY ==
[2024-10-20 12:14] LABS: Bilirubin Negative (Negative); Blood Negative (Negative); Clarity Clear (Clear); Glucose 500 mg/dL (Negative); Ketones Negative (Negative); Leukocyte Esterase Trace (Negative); Nitrite Negative (Negative); Specific Gravity 1.015 (1.005-1.025); Urobilinogen 0.2 mg/dL (Up to 0.2)
[2024-10-20 12:21] LABS: Bacteria Rare HPF (Negative); C & S Indicated? No; Casts Negative LPF (Negative); Crystals Negative HPF (Negative); Epithelial Cells Rare HPF (Negative); Mucus Negative (Negative); RBC 0-2 HPF (0-2)
== END 2024-10-20 11:56 | disposition home or self-care (01) ==
LOC: NCHCN 11:55
PROVIDERS: PCP Family Medicine; Visit Provider Family Medicine
DX: R35.0 Frequency of micturition (principal)
CPT/HCPCS: 81003; 81015

== ENCOUNTER 2024-10-22 11:48 | Emergency (ER) | payer MEDICARE, MEDICAID, SELFPAY ==
[2024-10-22] VITALS (24 sets, daily range): BP systolic 84–168; BP diastolic 23–139; PULSE 59–121; RESP 16–22; TEMP 36.6; O2SAT 94–99
--- NOTE | 2024-10-22 12:00 | RT.EKG_ITS ---
APPROVED REPORT Exam: Resting ECG Reason for Exam: Irregular pulse, hx of AFIB Patient Location: E HR:88 bpm ECG Measurements Heart Rate 88 AXIS MT 89 P 0 QRSd 135 QRS 268 QT 463 T 78 QTc 558 Conclusion Sinus rhythm...normal P axis, V-rate 60- 99 Atrial premature complexes...SV complexes w/ short R-R intvls Anterior infarct, old...Q >40mS, abnormal ST-T, V2-V5 Nonspecific T abnormalities, lateral leads...T <-0.10mV, I aVL V5 V6 old LBBB
--- NOTE | 2024-10-22 12:45 | DI.US_ITS ---
Exam(s) US LOWER EXTREMITY VENOUS RT EXAM: US LOWER EXTREMITY VENOUS RT CLINICAL HISTORY: pain. TECHNIQUE: Lower extremity venous ultrasound performed using grayscale, color-flow, and spectral Do ppler analysis. COMPARISON: No exams were available for comparison FINDINGS: The common femoral, femoral and popliteal veins demonstrate normal compressibility, augmentation, and color Doppler. The posterior tibial and peroneal veins are patent. No saphenous vein thrombosis or other superficial venous thrombosis is seen. No hematoma or Kirkpatrick's cyst is seen. IMPRESSION: Negative lower extremity ultrasound. No evidence of DVT. DATA REPOSITORY:
[2024-10-22 13:20] LABS: Abs Immature Grans 0.05 10^3/uL (0.0-0.06); Absolute Basophil Count 0.04 10^3/uL (0.0-0.2); Absolute Eosinophil Count 0.11 10^3/uL (0.0-0.7); Absolute Lymphocyte Count 0.28 10^3/uL (1.2-3.4); Absolute Monocyte Count 0.65 10^3/uL (0.1-0.8); Basophils % 0.6 %; Eosinophils % 1.7 %; HGB 12.6 g/dL (11.2-15.7); Immature Grans % 0.8 %; Lymphocytes % 4.2 %; MCH 28.9 pg (27.0-33.0); MCHC 31.5 % (32.0-36.0); MCV 92 fL (80-95); MPV 9.6 fL (8.0-11.0); Monocytes % 9.8 %; Neutrophils % 82.9 %; Platelet Count 293 10^3/uL (130-400); RBC 4.36 10^6/uL (3.93-5.22); RDW 16.9 % (11.7-14.6); RDW-SD 56.7 fL; WBC 6.63 10^3/uL (4.4-10.8)
[2024-10-22 13:25] LABS: INR 2.3 (0.9-1.1); Prothrombin Time 21.9 sec (9.1-11.1)
[2024-10-22 13:37] LABS: ALT 29 U/L (14-59); AST 27 U/L (15-37); Alkaline Phosphatase 104 U/L (46-116); Anion Gap 9.2 mmol/L (3-11); BUN 22 mg/dL (7-18); Bilirubin, Total 1.2 mg/dL (0.2-1.0); CO2 29.8 mmol/L (21.0-32.0); CREATININE 1.1 mg/dL (0.55-1.02); Calcium 8.7 mg/dL (8.5-10.1); Chloride 99 mmol/L (98-107); Estimated GFR 49.24 (mL/min/1.73m2); Glucose 142 mg/dL (74-106); Magnesium 2.4 mg/dL (1.8-2.4); Potassium 3.5 mmol/L (3.5-5.1); Sodium 138 mmol/L (136-145); Total Protein 7.9 g/dL (6.4-8.2); Troponin I 27 ng/L (<or=51)
--- NOTE | 2024-10-22 14:22 | ED.GENADUL_ITS ---
Discharge Plan Disposition Patient Disposition: Home Condition: Stable Discharge Details Clinical Impression: Pain in right leg Primary Care Provider: Mell Cueto ED Provider: Henry Watson Home Meds and New Rx's Prescriptions: Continued albuterol sulfate 2.5 mg/0.5 mL solution for nebulization 5 mg inhalation Q4H zolpidem 5 mg tablet 5 mg PO QHS fluticasone propionate [Flonase Allergy Relief] 50 mcg/actuation spray,suspension 2 spray intranasal DAILY Rx Instructions: administer into each nostril Jardiance 25 mg tablet 10 mg PO DAILY ipratropium-albuterol 0.5 mg-3 mg(2.5 mg base)/3 mL solution for nebulization 3 ml INHALATION QID Patient Comments: INHALE 3 MLS 4 TIMES A DAY BY NEBULIZATION ROUTE albuterol sulfate [ProAir HFA] 90 mcg/actuation Hfa Aerosol Inhaler 2 puff inhalation QID PRN PRN cetirizine 10 mg tablet 10 mg PO QAM Patient Comments: TK 1 T PO D PRN cholecalciferol (vitamin D3) [Vitamin D3] 25 mcg (1,000 unit) tablet 1,000 unit PO QAM Patient Comments: TAKE 1 TABLET BY MOUTH ONCE DAILY atorvastatin [Lipitor] 10 mg Tablet 10 mg PO QPM potassium chloride 10 mEq tablet,ER particles/crystals 10 meq PO QAM Patient Comments: TK 1 T PO QD warfarin 5 mg tablet 2.5 - 5 mg PO DIRECTED PRN Patient Comments: TK 1 T PO D UTD Rx Instructions: 2.5 M/Th - 5 all other days alendronate 70 mg tablet 70 mg PO DIRECTED Patient Comments: TK 1 T PO WEEKLY ON AN EMPTY STOMACH WITH BIG GLASS OF WATER DONT LIE DOWN FOR AN HOUR Rx Instructions: weekly amiodarone [Pacerone] 200 mg Tablet 200 mg PO DAILY Qty: 30 0RF spironolactone 25 mg Tablet 25 mg PO DAILY Qty: 30 0RF levothyroxine 75 mcg Tablet 37.5 mcg PO DAILY@0600 Qty: 30 0RF budesonide-formoterol [Symbicort] 160-4.5 mcg/actuation Hfa Aerosol Inhaler 2 puff inhalation BID Qty: 10.2 0RF torsemide 20 mg Tablet 50 mg PO DAILY Qty: 30 0RF Discharge Instructions Instructions: Leg Pain (ED) Additional Instructions: Please avoid activities that worsen pain. Please take ibuprofen 400 mg by mouth every 6-8 hours as needed for pain for the next few days. Please follow-up with your primary care physician. Return to the emergency department immediately for any worsening or new concerning symptoms. Referrals: Mell Cueto MD [Primary Care Provider] - Discharge Data Discharge Date/Time-TO BE ENTERED AT DEPARTURE: 10/22/24 16:08 HPI General Mode of arrival: ambulatory . Date/Time Provider Initiated Documentation: 10/22/24 11:54 . Limitations to Documentation: no limitations . Information obtained by: patient . HPI Narrative: 84-year-old female with multiple medical problems sent by PCP with concern for potential DVT. Patient notes she has had right lower extremity pain that developed yesterday and has persisted. Patient denies trauma. Pain localized to posterior and medial thigh. Pain worse with certain positions and on p alpation of the area. No associated numbness or tingling. No fever. No rash. No back pain. Patient denies having a blood clot in the past. Denies recent surgery or immobility. Related Data Home Medications ?Medication ?Instructions ?Recorded ?Confirmed albuterol sulfate 90 mcg/actuation 2 puff inhalation QID PRN PRN 09/27/19 10/22/24 aerosol inhaler (ProAir HFA) alendronate 70 mg tablet 70 mg PO DIRECTED 09/27/19 10/22/24 atorvastatin 10 mg tablet (Lipitor) 10 mg PO QPM 09/27/19 10/22/24 cetirizine 10 mg tablet 10 mg PO QAM 09/27/19 10/22/24 cholecalciferol (vitamin D3) 25 1,000 unit PO QAM 09/27/19 10/22/24 mcg (1,000 unit) tablet (Vitamin D3) potassium chloride 10 mEq 10 meq PO QAM 09/27/19 10/22/24 tablet,extended release(part/cryst) warfarin 5 mg tablet 2.5 - 5 mg PO DIRECTED PRN 09/27/19 10/22/24 empagliflozin 25 mg tablet 10 mg PO DAILY 01/01/24 10/22/24 (Jardiance) albuterol sulfate 2.5 mg/0.5 mL 5 mg inhalation Q4H 07/06/24 10/22/24 solution for nebulization fluticasone propionate 50 2 spray intranasal DAILY 07/06/24 10/22/24 mcg/actuation nasal spray,suspension (Flonase Allergy Relief) zolpidem 5 mg tablet 5 mg PO QHS 07/06/24 10/22/24 ipratropium 0.5 mg-albuterol 3 mg 3 ml inhalation QID 08/13/24 10/22/24 (2.5 mg base)/3 mL nebulization soln amiodarone 200 mg tablet (Pacerone) 200 mg PO DAILY #30 tabs 10/18/24 10/22/24 budesonide-formoterol HFA 160 2 puff inhalation BID #10.2 grams 10/18/24 10/22/24 mcg-4.5 mcg/actuation aerosol inhaler (Symbicort) levothyroxine 75 mcg tablet 37.5 mcg (1/2 x 75 mcg) PO 10/18/24 10/22/24 DAILY@0600 #30 tabs spironolactone 25 mg tablet 25 mg PO DAILY #30 tabs 10/18/24 10/22/24 torsemide 20 mg tablet 50 mg (2.5 x 20 mg) PO DAILY #30 10/18/24 10/22/24 tabs Previous Rx's ?Medication ?Instructions ?Recorded amiodarone 200 mg tablet (Pacerone) 200 mg PO DAILY #30 tabs 10/18/24 budesonide-formoterol HFA 160 2 puff inhalation BID #10.2 grams 10/18/24 mcg-4.5 mcg/actuation aerosol inhaler (Symbicort) levothyroxine 75 mcg tablet 37.5 mcg (1/2 x 75 mcg) PO 10/18/24 DAILY@0600 #30 tabs spironolactone 25 mg tablet 25 mg PO DAILY #30 tabs 10/18/24 torsemide 20 mg tablet 50 mg (2.5 x 20 mg) PO DAILY #30 10/18/24 tabs Allergies Allergy/AdvReac Type Severity Reaction Status Date / Time peanut Allergy Severe Anaphylaxis Verified 10/22/24 12:08 Penicillins Allergy Unknown Pt thinks Verified 10/22/24 12:08 she gets a rash aminophylline Allergy unknown Verified 10/22/24 12:08 digoxin Allergy unknown Verified 10/22/24 12:08 enalaprilat (From Vasotec) Allergy unknown Verified 10/22/24 12:08 tree and shrub pollen Allergy Itching Verified 10/22/24 12:08 paper tape Allergy Intermediate Skin Rash, Uncoded 10/22/24 12:08 red and sore General Stated Complaint: GenMedical SANDRA: 2 Exam Const General: cooperative and no acute distress HENMT Mouth: moist mucous membranes Resp Auscultation: clear to auscultation bilaterally Cardio Rate: regular rate and not tachycardic Rhythm: regular rhythm GI Palpation: soft, not firm, no guarding, no masses, not rigid and nontender Skin General skin exam: no rashes or lesions noted Neuro General: patient alert, patient awake and tone normal Extrem General: no edema Right lower extremity: no joint enlargement, hip/thigh Details: tenderness Location: of the mid upper leg Location: medially; no swelling, no ecchymosis, no deformity and no unusual warmth and foot (Diminished pulses to palpation, identified posterior tibial with Doppler); no edema Course Vital Signs Vital signs: Vital Signs Temperature 36.6 C 10/22/24 11:56 Pulse 88 10/22/24 11:56 Respiratory Rate 16 10/22/24 11:56 Blood Pressure 84/53 L 10/22/24 11:56 Pulse Oximetry 95 10/22/24 11:56 Temperature 36.6 C 10/22/24 11:56 Temperature Source Oral 10/22/24 11:56 Pulse 97 H 10/22/24 12:42 Pulse 88 10/22/24 12:42 Respiratory Rate 20 10/22/24 12:42 Blood Pressure 147/40 H 10/22/24 12:42 Blood Pressure Mean 83 10/22/24 12:42 Blood Pressure Position Sitting 10/22/24 11:56 Pulse Oximetry 97 10/22/24 12:42 Oxygen Delivery Method Room Air 10/22/24 12:34 Oxygen Flow Rate 0 10/22/24 12:34 Pain Level 4 10/22/24 11:56 Lab/Test Results Lab/Test Results: Laboratory Tests Range/Units 10/22/24 13:10 WBC (4.4-10.8) 10^3/uL 6.63 RBC (3.93-5.22) 10^6/uL 4.36 Hgb (11.2-15.7) g/dL 12.6 Hct (36.0-46.0) % 40.0 MCV (80-95) fL 92 MCH (27.0-33.0) pg 28.9 MCHC (32.0-36.0) % 31.5 L RDW (11.7-14.6) % 16.9 H Plt Count (130-400) 10^3/uL 293 MPV (8.0-11.0) fL 9.6 Immature Gran % % 0.8 Neutrophils % % 82.9 Lymphocytes % % 4.2 Monocytes % % 9.8 Eosinophils % % 1.7 Basophils % % 0.6 Nucleated RBC % (0.0-0.3) % 0.0 Absolute Neutrophils (1.2-6.7) 10^3/uL 5.50 Absolute Lymphocytes (1.2-3.4) 10^3/uL 0.28 L Absolute Monocytes (0.1-0.8) 10^3/uL 0.65 Absolute Eosinophils (0.0-0.7) 10^3/uL 0.11 Absolute Basophils (0.0-0.2) 10^3/uL 0.04 PT (9.1-11.1) sec 21.9 H INR (0.9-1.1) 2.3 H Sodium (136-145) mmol/L 138 Potassium (3.5-5.1) mmol/L 3.5 Chloride (98-107) mmol/L 99 Carbon Dioxide (21.0-32.0) mmol/L 29.8 Anion Gap (3-11) mmol/L 9.2 BUN (7-18) mg/dL 22 H Creatinine (0.55-1.02) mg/dL 1.1 H Est GFR (CKD-EPI 2020) (mL/min/1.73m2) 49.24 Glucose (74-106) mg/dL 142 H Calcium (8.5-10.1) mg/dL 8.7 Magnesium (1.8-2.4) mg/dL 2.4 Total Bilirubin (0.2-1.0) mg/dL 1.2 H AST (15-37) U/L 27 ALT (14-59) U/L 29 Alkaline Phosphatase (46-116) U/L 104 Troponin I (<or=51) ng/L 27 Total Protein (6.4-8.2) g/dL 7.9 Albumin (3.4-5.0) g/dL 4.0 Medical Decision Making 84-year-old female with multiple medical problems here with acute atraumatic right posterior medial thigh pain. Concern for potential DVT. Patient does have peripheral vascular disease with diminished pulses. Ultrasound of the right lower extremity was reviewed and interpreted by radiology: Negative lower extremity ultrasound. No evidence of DVT. Suspect muscle strain versus neuropathic pain. Plan for supportive care and outpatient follow-up with PCP. Usual and customary discharge instructions were reviewed. Lab Data Lab results reviewed: Yes I reviewed the patient's lab results. Labs: Laboratory Tests Range/Units 10/22/24 10/22/24 13:10 13:31 WBC (4.4-10.8) 10^3/uL 6.63 RBC (3.93-5.22) 10^6/uL 4.36 Hgb (11.2-15.7) g/dL 12.6 Hct (36.0-46.0) % 40.0 MCV (80-95) fL 92 MCH (27.0-33.0) pg 28.9 MCHC (32.0-36.0) % 31.5 L RDW (11.7-14.6) % 16.9 H Plt Count (130-400) 10^3/uL 293 MPV (8.0-11.0) fL 9.6 Immature Gran % % 0.8 Neutrophils % % 82.9 Lymphocytes % % 4.2 Monocytes % % 9.8 Eosinophils % % 1.7 Basophils % % 0.6 Nucleated RBC % (0.0-0.3) % 0.0 Absolute Neutrophils (1.2-6.7) 10^3/uL 5.50 Absolute Lymphocytes (1.2-3.4) 10^3/uL 0.28 L Absolute Monocytes (0.1-0.8) 10^3/uL 0.65 Absolute Eosinophils (0.0-0.7) 10^3/uL 0.11 Absolute Basophils (0.0-0.2) 10^3/uL 0.04 PT (9.1-11.1) sec 21.9 H INR (0.9-1.1) 2.3 H Sodium (136-145) mmol/L 138 Potassium (3.5-5.1) mmol/L 3.5 Chloride (98-107) mmol/L 99 Carbon Dioxide (21.0-32.0) mmol/L 29.8 Anion Gap (3-11) mmol/L 9.2 BUN (7-18) mg/dL 22 H Creatinine (0.55-1.02) mg/dL 1.1 H Est GFR (CKD-EPI 2020) (mL/min/1.73m2) 49.24 Glucose (74-106) mg/dL 142 H Calcium (8.5-10.1) mg/dL 8.7 Magnesium (1.8-2.4) mg/dL 2.4 Total Bilirubin (0.2-1.0) mg/dL 1.2 H AST (15-37) U/L 27 ALT (14-59) U/L 29 Alkaline Phosphatase (46-116) U/L 104 Troponin I (<or=51) ng/L 27 Cancelled Total Protein (6.4-8.2) g/dL 7.9 Albumin (3.4-5.0) g/dL 4.0 Quality:SDOH Health Related Social Needs: No Data to Display PFSH All Active Problems (Updated 10/22/24 @ 15:43 by Henry Watson MD) Pain in right leg (Acute) Anemia (Chronic) Acute kidney injury superimposed on CKD (Acute) Hypothyroid (Chronic) Acute heart failure with reduced ejection fraction (HFrEF, <= 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 (Acute) Cardiomyopathy (Acute) Atrial fibrillation with rapid ventricular response (Acute) Heart failure with reduced ejection fraction (Acute) Iron refractory iron deficiency anemia (Acute) Nonhealing nonsurgical wound with fat layer exposed (Acute) Wound of left lower extremity (Acute) Anticoagulated on Coumadin (Acute) Lesion of skin of nose (Acute) Conductive hearing loss in right ear (Acute 02/23/15) Mixed conductive and sensorineural hearing loss of right ear with restricted hearing of left ear (Acute 07/25/16) Sensorineural hearing loss (SNHL) of left ear with restricted hearing of right ear (Acute 07/25/16) Sensorineural hearing loss, bilateral (Acute 02/25/17) Medical History Aortic stenosis, moderate Severe tricuspid regurgitation Abscess Bunion Memory deficit Elevated TSH Type 2 diabetes mellitus Hypocalcemia CKD (chronic kidney disease) Facial skin lesion Hyperlipidemia Asthma CAD (coronary artery disease) A-fib HTN (hypertension) Diabetes mellitus Lactose intolerance Osteoporosis Diverticulitis Allergic rhinitis Hiatal hernia Mitral valve stenosis Insomnia Leg cramps Surgical History Status post excisional debridement (~02/2024) Left Leg Mitral valve replaced History of bladder suspension procedure History of tonsillectomy H/O adenoidectomy Family History Father , d. 60 Throat cancer Mother , d. 80 Heart disease Social History Smoking/Tobacco Use Status: Never Smoking risk assessment performed?: Yes Alcohol Intake: never Drug use: Never Substance use type: does not use Household members: none Housing: other Number of Children: 4 Do you feel safe at home: Yes Do you feel safe in your relationship?: Yes Additional Social history: . lives alone in home on [address]. son lives nearby
== END 2024-10-22 16:08 | disposition home or self-care (01) ==
PROVIDERS: Emergency Provider Student in an Organized Health Care Education/Training Program; PCP Family Medicine
DX: M79.604 Pain in right leg (principal); Z79.01 Long term (current) use of anticoagulants; Z86.79 Personal history of other diseases of the circulatory system; I73.9 Peripheral vascular disease, unspecified
CPT/HCPCS: 99284 ×2; 36415; 80053; 93005; 83735; 84484; 85025; 85610; 93010; 93971

== ENCOUNTER 2024-10-27 13:27 | Outpatient (REF) | payer MEDICARE, MEDICAID, SELFPAY ==
[2024-10-27 13:27] LABS: Anion Gap 8.6 mmol/L (3-11); BUN 14 mg/dL (7-18); CO2 27.4 mmol/L (21.0-32.0); CREATININE 0.9 mg/dL (0.55-1.02); Chloride 101 mmol/L (98-107); Estimated GFR 62.65 (mL/min/1.73m2); Glucose 158 mg/dL (74-106); Potassium 4.7 mmol/L (3.5-5.1); Sodium 137 mmol/L (136-145)
== END 2024-10-27 13:28 | disposition home or self-care (01) ==
LOC: LBN 13:27
PROVIDERS: PCP Family Medicine; Visit Provider Family Medicine
DX: I50.23 Acute on chronic systolic (congestive) heart failure (principal); N18.31 Chronic kidney disease, stage 3a; I48.0 Paroxysmal atrial fibrillation; E46 Unspecified protein-calorie malnutrition; E11.22 Type 2 diabetes mellitus with diabetic chronic kidney disease
CPT/HCPCS: 80048

== ENCOUNTER 2024-11-01 15:36 | Outpatient (REF) | payer MEDICARE, MEDICAID, SELFPAY ==
[2024-11-01 21:53] LABS: Hemoglobin A1C 6.2 % (<5.7)
[2024-11-01 22:11] LABS: HCT 41.8 % (36.0-46.0); HGB 13.4 g/dL (11.2-15.7); MCHC 32.1 % (32.0-36.0); MCV 91 fL (80-95); MPV 11.3 fL (8.0-11.0); Platelet Count 272 10^3/uL (130-400); RBC 4.62 10^6/uL (3.93-5.22); RDW 16.2 % (11.7-14.6); RDW-SD 53.8 fL; WBC 7.19 10^3/uL (4.4-10.8)
[2024-11-01 22:23] LABS: Prothrombin Time 71.6 sec (9.1-11.1)
[2024-11-01 22:25] LABS: INR 8.3 (0.9-1.1)
== END 2024-11-01 15:37 | disposition home or self-care (01) ==
LOC: NCHCN 15:36
PROVIDERS: PCP Family Medicine; Visit Provider Family Medicine
DX: E11.9 Type 2 diabetes mellitus without complications (principal); R79.1 Abnormal coagulation profile
CPT/HCPCS: 85027; 83036; 85610

== ENCOUNTER 2024-11-03 13:37 | Outpatient (REF) | payer MEDICARE, MEDICAID, SELFPAY ==
[2024-11-03 13:51] LABS: Prothrombin Time 47.8 sec (9.1-11.1)
[2024-11-03 14:02] LABS: ALT 28 U/L (14-59); AST 30 U/L (15-37); Albumin 4.3 g/dL (3.4-5.0); Alkaline Phosphatase 107 U/L (46-116); Bilirubin, Direct 1.2 mg/dL (0.0-0.2); Bilirubin, Total 1.2 mg/dL (0.2-1.0); Total Protein 7.5 g/dL (6.4-8.2)
[2024-11-03 14:39] LABS: INR 5.4 (0.9-1.1)
== END 2024-11-03 13:38 | disposition home or self-care (01) ==
LOC: LBN 13:37
PROVIDERS: PCP Family Medicine; Visit Provider Family Medicine
DX: I50.23 Acute on chronic systolic (congestive) heart failure (principal); N17.9 Acute kidney failure, unspecified
CPT/HCPCS: 80076; 85610

== ENCOUNTER → 2024-11-05 12:44 | Outpatient (BNVA) | payer MEDICARE, MEDICAID, SELFPAY | PROVIDERS: PCP Family Medicine; Referring Provider Family Medicine; Visit Provider Internal Medicine Cardiovascular Disease | DX: I48.91 Unspecified atrial fibrillation (principal); I50.20 Unspecified systolic (congestive) heart failure; I35.0 Nonrheumatic aortic (valve) stenosis; Z95.2 Presence of prosthetic heart valve; Z79.01 Long term (current) use of anticoagulants; J45.909 Unspecified asthma, uncomplicated; E11.22 Type 2 diabetes mellitus with diabetic chronic kidney disease; N18.30 Chronic kidney disease, stage 3 unspecified | CPT/HCPCS: 99214 ==

== ENCOUNTER 2024-11-26 11:13 | Outpatient (RCR) | payer MEDICARE, MEDICAID, SELFPAY ==
--- NOTE | 2024-11-30 08:49 | W.HOLTRPT ---
Date of service: 11/30/24 Time of Service: 08:49 Holter Monitor Report Referring Provider:: Mell Cueto Indications:: Atrial fibrillation Holter Monitor Note: This is a Holter monitor. Only 3 hours and 26 minutes of the recording was interpretable Atrial fibrillation was present throughout with an average heart rate of 86. Minimum was 52, maximum 136. 22% of the time heart rates were above 100. There were very rare isolated premature ventricular contractions No symptoms were reported
== END 2024-11-29 23:59 | disposition home or self-care (01) ==
LOC: CARDOPNVT 11:13
PROVIDERS: PCP Family Medicine; Referring Provider Family Medicine; Visit Provider Internal Medicine Cardiovascular Disease
DX: I48.0 Paroxysmal atrial fibrillation (principal)
CPT/HCPCS: 93227; 93225; 93226

== ENCOUNTER 2025-01-06 04:46 | Outpatient (CLI) | payer MEDICARE, MEDICAID, SELFPAY ==
[2025-01-06 11:10] LABS: HCT 36.8 % (36.0-46.0); HGB 11.6 g/dL (11.2-15.7); MCH 28.4 pg (27.0-33.0); MCHC 31.5 % (32.0-36.0); MCV 90 fL (80-95); MPV 10.1 fL (8.0-11.0); Platelet Count 271 10^3/uL (130-400); RBC 4.08 10^6/uL (3.93-5.22); RDW 14.7 % (11.7-14.6); RDW-SD 48.3 fL; WBC 7.71 10^3/uL (4.4-10.8)
[2025-01-06 11:22] LABS: INR 2.7 (0.9-1.1); Prothrombin Time 25.7 sec (9.1-11.1)
[2025-01-06 12:22] LABS: Hemoglobin A1C 6.9 % (<5.7)
== END 2025-01-06 04:47 | disposition home or self-care (01) ==
LOC: LBO 04:46
PROVIDERS: PCP Family Medicine; Visit Provider Family Medicine
DX: I48.19 Other persistent atrial fibrillation (principal)
CPT/HCPCS: 36415; 85027; 83036; 85610

== ENCOUNTER 2025-01-22 03:42 | Inpatient (IN) | payer MEDICARE, MEDICAID, SELFPAY ==
[2025-01-22] VITALS (38 sets, daily range): BP systolic 72–128; BP diastolic 21–87; PULSE 50–87; RESP 15–24; TEMP 36.2–37.6; O2SAT 94–99
--- NOTE | 2025-01-22 03:45 | DI.RAD_ITS ---
Exam(s) XR PORTABLE CHEST AP EXAM: XR PORTABLE CHEST AP CLINICAL HISTORY: SOB. TECHNIQUE: 2D digital imaging was performed. COMPARISON: CT CT CHEST WO from 08/13/2024 CR XR PORTABLE CHEST AP from 10/13/2024 FINDINGS: Single AP portable view. Again noted are sternotomy wires, cardiomegaly, and a prosthetic mitral cardiac valve appear Mediastinum is not widened. Small bilateral pleural effusions again noted, left larger than right and exhibiting minimum change when compared to 10/13/2024. In this elderly patient there is calcification in the wall of the trachea and mainstem bronchi, often seen in elderly people, however, there also appears to be calcification or bronchiectasis in left lower lobe bronchi. Probably also mild bronchiectasis at this level. I note that there were no pleural effusions on the chest CT scan of 08/13/2024. IMPRESSION: Cardiomegaly. Sternotomy. Prosthetic mitral valve. Small bilateral pleural effusions, left larger than right, similar to chest x-ray of 10/13/2024. Please note that there are no pleural effusions on CT scan of 08/14/2023.There is mild pulmonary venous hypertension pattern but no airspace pulmonary edema. DATA REPOSITORY: RADIATION DOSE DELIVERED:
--- NOTE | 2025-01-22 03:45 | RT.EKG_ITS ---
APPROVED REPORT Exam: Resting ECG Reason for Exam: SOB Patient Location: E HR:72 bpm ECG Measurements Heart Rate 72 AXIS OR 163 P 0 QRSd 147 QRS -53 QT 499 T 162 QTc 548 Conclusion Sinus rhythm...normal P axis, V-rate 60- 99 Supraventricular bigeminy...bigeminy string>4 w/ SV complexes Left bundle branch block...QRSd>120, broad/notched R Probable rate controlled afib with old LBBB. No acute changes.
--- NOTE | 2025-01-22 03:59 | W.ED.GENAD ---
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 Primary Care Provider: Mell Cueto ED Provider: Portillo Villaseñor Sarita Meds and New Rx's Prescriptions: No Action zolpidem 5 mg tablet 5 mg PO QHS fluticasone propionate [Flonase Allergy Relief] 50 mcg/actuation spray,suspension 2 spray intranasal DAILY Rx Instructions: administer into each nostril albuterol sulfate 2.5 mg /3 mL (0.083 %) solution for nebulization 2.5 mg inhalation Q4H PRN fluticasone propion-salmeterol 500-50 mcg/dose blister with device 1 inh inhalation BID Jardiance 25 mg tablet 25 mg PO DAILY mv-mn no.[id number] acid 27 mg iron- 1 mg tablet 1 tab PO DAILY spironolactone 25 mg tablet 25 mg PO DAILY Qty: 90 3RF amiodarone [Pacerone] 200 mg tablet 200 mg PO DAILY Qty: 90 3RF torsemide 20 mg tablet 50 mg PO DAILY Qty: 240 3RF Jardiance 25 mg tablet 10 mg PO DAILY ipratropium-albuterol 0.5 mg-3 mg(2.5 mg base)/3 mL solution for nebulization 3 ml INHALATION QID Patient Comments: INHALE 3 MLS 4 TIMES A DAY BY NEBULIZATION ROUTE albuterol sulfate [ProAir HFA] 90 mcg/actuation Hfa Aerosol Inhaler 2 puff inhalation QID PRN PRN cetirizine 10 mg tablet 10 mg PO QAM Patient Comments: TK 1 T PO D PRN cholecalciferol (vitamin D3) [Vitamin D3] 25 mcg (1,000 unit) tablet 1,000 unit PO QAM Patient Comments: TAKE 1 TABLET BY MOUTH ONCE DAILY atorvastatin [Lipitor] 10 mg Tablet 10 mg PO QPM potassium chloride 10 mEq tablet,ER particles/crystals 10 meq PO QAM Patient Comments: TK 1 T PO QD warfarin 5 mg tablet 2.5 - 5 mg PO DIRECTED PRN Patient Comments: TK 1 T PO D UTD Rx Instructions: 2.5 M/Th - 5 all other days alendronate 70 mg tablet 70 mg PO DIRECTED Patient Comments: TK 1 T PO WEEKLY ON AN EMPTY STOMACH WITH BIG GLASS OF WATER DONT LIE DOWN FOR AN HOUR Rx Instructions: weekly levothyroxine 75 mcg Tablet 37.5 mcg PO DAILY@0600 Qty: 30 0RF HPI General Mode of arrival: EMS. Date/Time Provider Initiated Documentation: 01/22/25 03:56. Limitations to Documentation: no limitations. Information obtained by: patient. HPI Narrative: Patient presents to ED by ambulance after a fall at home with inability to get herself up. Patient reports that she had gotten up to go to the bathroom. She has a commode in her room. While going back to bed she had difficulty getting her legs up into the bed and became weak and ultimately slid down onto the floor. Denies hitting her head or loss of consciousness. Denies neck pain, chest pain, back pain, extremity pain. Reports that she has been having increasing weakness and shortness of breath over the last 1 to 2 weeks. She is getting very short of breath with exertion. She is not having any type of chest pain or pressure. Her legs are much more swollen than they usually are. She is on Coumadin status post mechanical heart valve replacement in the past. She denies any fever, cough, vomiting, abdominal pain, diarrhea, urinary symptoms. Related Data Home Medications ?Medication ?Instructions ?Recorded ?Confirmed albuterol sulfate 90 mcg/actuation 2 puff inhalation QID PRN PRN 09/27/19 01/22/25 aerosol inhaler (ProAir HFA) alendronate 70 mg tablet 70 mg PO DIRECTED 09/27/19 01/22/25 atorvastatin 10 mg tablet (Lipitor) 10 mg PO QPM 09/27/19 01/22/25 cetirizine 10 mg tablet 10 mg PO QAM 09/27/19 01/22/25 cholecalciferol (vitamin D3) 25 1,000 unit PO QAM 09/27/19 01/22/25 mcg (1,000 unit) tablet (Vitamin D3) potassium chloride 10 mEq 10 meq PO QAM 09/27/19 01/22/25 tablet,extended release(part/cryst) warfarin 5 mg tablet 2.5 - 5 mg PO DIRECTED PRN 09/27/19 01/22/25 empagliflozin 25 mg tablet 10 mg PO DAILY 01/01/24 01/22/25 (Jardiance) fluticasone propionate 50 2 spray intranasal DAILY 07/06/24 01/22/25 mcg/actuation nasal spray,suspension (Flonase Allergy Relief) zolpidem 5 mg tablet 5 mg PO QHS 07/06/24 01/22/25 ipratropium 0.5 mg-albuterol 3 mg 3 ml inhalation QID 08/13/24 01/22/25 (2.5 mg base)/3 mL nebulization soln levothyroxine 75 mcg tablet 37.5 mcg (1/2 x 75 mcg) PO 10/18/24 01/22/25 DAILY@0600 #30 tabs albuterol sulfate 2.5 mg/3 mL 2.5 mg inhalation Q4H PRN 11/04/24 01/22/25 (0.083 %) solution for nebulization empagliflozin 25 mg tablet 25 mg PO DAILY 11/04/24 01/22/25 (Jardiance) fluticasone 500 mcg-salmeterol 50 1 inh inhalation BID 11/04/24 01/22/25 mcg/dose blistr powdr for inhalation multivitamin with minerals-iron 1 tab PO DAILY 11/04/24 01/22/25 fumarate 27 mg-folic acid 1 mg tablet amiodarone 200 mg tablet (Pacerone) 200 mg PO DAILY #90 tabs 11/05/24 01/22/25 spironolactone 25 mg tablet 25 mg PO DAILY #90 tabs 11/05/24 01/22/25 torsemide 20 mg tablet 50 mg (2.5 x 20 mg) PO DAILY #240 11/05/24 01/22/25 tabs Previous Rx's ?Medication ?Instructions ?Recorded levothyroxine 75 mcg tablet 37.5 mcg (1/2 x 75 mcg) PO 10/18/24 DAILY@0600 #30 tabs amiodarone 200 mg tablet (Pacerone) 200 mg PO DAILY #90 tabs 11/05/24 spironolactone 25 mg tablet 25 mg PO DAILY #90 tabs 11/05/24 torsemide 20 mg tablet 50 mg (2.5 x 20 mg) PO DAILY #240 11/05/24 tabs Allergies Allergy/AdvReac Type Severity Reaction Status Date / Time peanut Allergy Severe Anaphylaxis Verified 01/22/25 06:36 Penicillins Allergy Unknown Pt thinks Verified 01/22/25 06:36 she gets a rash aminophylline Allergy unknown Verified 01/22/25 06:36 digoxin Allergy unknown Verified 01/22/25 06:36 enalaprilat (From Vasotec) Allergy unknown Verified 01/22/25 06:36 tree and shrub pollen Allergy Itching Verified 01/22/25 06:36 paper tape Allergy Intermediate Skin Rash, Uncoded 01/22/25 06:36 red and sore General Stated Complaint: Fall/Non TraumaCriteria SANDRA: 3 Exam Narrative Exam Narrative: Const: WDWN elderly female in NAD. VS per triage. HEENT: NC/AT. Normal facial exam. Neck: Supple. Trachea midline. No midline tenderness. Lungs: Normal respiratory effort. Lungs with wheeze, rhonchi and crackles. Cor: RRR with murmur and mechanical click. Good radial pulses. GI: Soft/ND/NT. Neuro: A+O x 3. Normal speech, mentation. Cranial nerves II - XII grossly intact. No gross motor or sensory deficit. General weakness involving BLE. Ext: No C/C. Marked BLE edema. Appears to have avulsed the nail off here left big toe. Course Vital Signs Vital signs: Vital Signs Pulse 77 01/22/25 03:46 Respiratory Rate 18 01/22/25 03:46 Blood Pressure 105/38 L 01/22/25 03:46 Pulse Oximetry 97 01/22/25 03:46 Pulse 77 01/22/25 03:46 Respiratory Rate 18 01/22/25 03:46 Blood Pressure 105/38 L 01/22/25 03:46 Pulse Oximetry 97 01/22/25 03:46 Oxygen Delivery Method Room Air 01/22/25 03:46 Oxygen Flow Rate 0 01/22/25 03:46 Medical Decision Making Patient presenting to ED after a controlled fall at home. No apparent injury from this fall other than avulsion of her left big toenail. She reports increasing weakness and shortness of breath over the last 1 to 2 weeks. She was supposed to have gotten blood work done but has not been able to get out to do so. She is in no respiratory distress but she has diffuse wheezing, rhonchi, crackles on lung exam, loud murmur as well as mechanical click on cardiac exam and marked bilateral lower extremity edema. She does have a history of asthma. Suspect her weakness and shortness of breath likely related to fluid overload/CHF. She does not needed trauma workup. She did not strike her head at all. Will obtain EKG, portable chest x-ray, laboratory studies, urinalysis. 05:45 - Patient's EKG appears to be rate controlled A-fib with left bundle branch block which is old. Portable chest x-ray per my read with cardiomegaly and small bilateral pleural effusions. There is no mandi edema present. Laboratory studies with normal white count and hemoglobin. VBG with normal pH and pCO2. Chemistries significant for creatinine of 1.8, BUN 43. Potassium normal at 4.9. Calcium normal at 8.8. Mag a little high at 2.7. She does have some elevation of her liver function but has no abdominal pain or GI symptoms. Suspect this is related to her heart failure. Her troponin is normal but her BNP is 23,249. I will get a second troponin though I suspect this will be fine. Ornelas catheter ordered to monitor I's and O's. Will give a Lasix bolus followed by IV drip at 20 mg an hour. Plan to discuss with hospitalist for admission for diuresis for fluid overload/congestive heart failure. 07:30 - Spoke with Dr. Sullivan for admission. Will hold off on the Lasix drip and admit to floor bed, treat with lasix boluses as needed for diuresis. Imaging Data Radiologic Study: Attestation: I personally reviewed and interpreted this imaging study as follows: Imaging: X-Ray My impression: see [facility] Lab Data Lab results reviewed: Yes I reviewed the patient's lab results. Lab results narrative: see [facility] ECG Data Attestation: I personally reviewed and interpreted this ECG (s) as follows: Prior ECG tracings: available for review Interpretation: see EKG/[facility] PFSH All Active Problems (Updated 01/22/25 @ 07:28 by Portillo Villaseñor MD) Anemia (Chronic) Acute kidney injury superimposed on CKD (Acute) Hypothyroid (Chronic) Acute heart failure with reduced ejection fraction (HFrEF, <= 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 (Acute) Cardiomyopathy (Acute) Atrial fibrillation with rapid ventricular response (Acute) Heart failure with reduced ejection fraction (Acute) Iron refractory iron deficiency anemia (Acute) Nonhealing nonsurgical wound with fat layer exposed (Acute) Wound of left lower extremity (Acute) Anticoagulated on Coumadin (Acute) Lesion of skin of nose (Acute) Conductive hearing loss in right ear (Acute 02/23/15) Mixed conductive and sensorineural hearing loss of right ear with restricted hearing of left ear (Acute 07/25/16) Sensorineural hearing loss (SNHL) of left ear with restricted hearing of right ear (Acute 07/25/16) Sensorineural hearing loss, bilateral (Acute 02/25/17) Medical History Aortic stenosis, moderate Severe tricuspid regurgitation Abscess Bunion Memory deficit Elevated TSH Type 2 diabetes mellitus Hypocalcemia CKD (chronic kidney disease) Facial skin lesion Hyperlipidemia Asthma CAD (coronary artery disease) A-fib HTN (hypertension) Diabetes mellitus Lactose intolerance Osteoporosis Diverticulitis Allergic rhinitis Hiatal hernia Mitral valve stenosis Insomnia Leg cramps Surgical History Status post excisional debridement (~02/2024) Left Leg Mitral valve replaced History of bladder suspension procedure History of tonsillectomy H/O adenoidectomy Family History Father , d. 60 Throat cancer Mother , d. 80 Heart disease Social History Smoking/Tobacco Use Status: Never Smoking risk assessment performed?: Yes Alcohol Intake: never Drug use: Never Substance use type: does not use Household members: none Housing: other Number of Children: 4 Do you feel safe at home: Yes Do you feel safe in your relationship?: Yes Additional Social history: . lives alone in home on [address]. son lives nearby
[2025-01-22 04:42] LABS: Abs Immature Grans 0.12 10^3/uL (0.0-0.06); BE (Venous) -3 mmol/L (-2-3); HCO3 (Venous) 23 mmol/L (23-28); HCT 39.1 % (36.0-46.0); HGB 12.1 g/dL (11.2-15.7); Immature Grans % 1.4 %; MCH 26.9 pg (27.0-33.0); MCHC 30.9 % (32.0-36.0); MCV 87 fL (80-95); MPV 10.7 fL (8.0-11.0); O2 Sat (Venous) 67 %; Platelet Count 256 10^3/uL (130-400); RBC 4.50 10^6/uL (3.93-5.22); RDW 15.4 % (11.7-14.6); RDW-SD 48.9 fL; TCO2 (Venous) 21 mmol/L (24-29); WBC 8.64 10^3/uL (4.4-10.8); pCO2 (Venous) 44 mmHg (41-51); pO2 (Venous) 41 mmHg
[2025-01-22 05:11] LABS: Glucose 500 mg/dL (Negative)
--- NOTE | 2025-01-22 05:31 | DI.VRAD_ITS ---
PROCEDURE INFORMATION: Exam: XR Chest Exam date and time: 01/22/2025 4:58 AM Age: 84 years old Clinical indication: Shortness of breath; SOB TECHNIQUE: Imaging protocol: Radiologic exam of the chest. Views: 1 view. COMPARISON: CR XR PORTABLE CHEST AP 10/13/2024 5:48 PM FINDINGS: Lungs: No consolidation. Pleural spaces: Small bilateral pleural effusions. Heart/Mediastinum: Status post valve replacement. Stable cardiomegaly. Bones/joints: Status post median sternotomy. IMPRESSION: Small bilateral pleural effusions. Dictated and Authenticated by: Mell Donis MD. Orderin Kasi Nath MD
[2025-01-22 05:36] LABS: ALT 93 U/L (14-59); AST 66 U/L (15-37); Albumin 3.7 g/dL (3.4-5.0); Alkaline Phosphatase 292 U/L (46-116); Anion Gap 12.7 mmol/L (3-11); BUN 43 mg/dL (7-18); Bilirubin, Total 1.5 mg/dL (0.2-1.0); CO2 23.3 mmol/L (21.0-32.0); Calcium 8.8 mg/dL (8.5-10.1); Chloride 96 mmol/L (98-107); Estimated GFR 27.27 (mL/min/1.73m2); Glucose 239 mg/dL (74-106); Magnesium 2.7 mg/dL (1.8-2.4); NT-proBNP 23249 pg/mL (<300); Potassium 4.9 mmol/L (3.5-5.1); Sodium 132 mmol/L (136-145); Total Protein 6.7 g/dL (6.4-8.2); Troponin I 17 ng/L (<or=51)
[2025-01-22 06:11] LABS: INR 3.5 (0.9-1.1); Prothrombin Time 32.4 sec (9.1-11.1)
[2025-01-22] MEDS: Furosemide 40 MG/4 ML VIAL 60 MG IVP (07:06)
--- NOTE | 2025-01-22 07:12 | NUR.NOTE ---
prior to administration of lasix. ED MD was made aware of PT BP and is ok with administration of medication and drip Nursing Note:
[2025-01-22 07:30] LABS: Troponin I 15 ng/L (<or=51)
--- NOTE | 2025-01-22 07:37 | W.PM.HP.N ---
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: Status: Acute Assessment and plan: - History of CHF, reportedly at 1 point with EF less than 40%, though most recent echocardiogram in the system from October 2021 shows an EF of 50 to 55% - Will attempt to obtain echocardiogram if the patient is still hospitalized on Friday - However, given significantly elevated proBNP of 25,000 and significant exertional dyspnea and lower extremity edema, patient was given 60 mg IV Lasix in the emergency department - Will monitor urine output and give additional doses of Lasix as needed -Continue home spironolactone - Patient normally on torsemide, currently on hold (2) Acute kidney injury superimposed on CKD: Status: Acute Assessment and plan: - History of - Current creatinine 1.2 - Will follow-up a.m. creatinine (3) A-fib: Assessment and plan: - Currently rate controlled - Continue home warfarin and amiodarone - Monitor INR daily (4) Hypothyroid: Status: Chronic Assessment and plan: - Continue home Synthroid (5) CAD (coronary artery disease): Assessment and plan: - History of - No complaints of active chest pain - Continue home statin (6) Type 2 diabetes mellitus: Assessment and plan: - Hold home Jardiance - Sliding scale insulin, heart healthy carb consistent diet History of Present Illness History of Present Illness Chief Complaint: fall Narrative: 84-year-old female with a past medical history of coronary artery disease, HFrEF, A-fib on warfarin, hypothyroidism, CKD who presents to the emergency department after experiencing a controlled fall at home. Patient states that she got out of bed and went to the bathroom a commode in her room however, she had difficulty getting back into bed and slid down to the floor. She did not hit her head or lose consciousness. She also states that she has been having increased weakness and shortness of breath over the last 1 to 2 weeks as well as worsening swelling in bilateral lower extremities. She denies any headache, lightheadedness, dizziness, chest pain, shortness of breath, nausea vomiting or diarrhea. In the emergency department the patient was noted as having normal vital signs and normal physical exam with the exception of crackles in bilateral lung pimentel and significant bilateral lower extremity edema. Her CBC and CMP were unremarkable, though her proBNP was about 25,000. Additionally, patient had chest x-ray that did not show any acute findings. Patient attempted to ambulate but was significantly weak and short of breath. At which time patient was given 60 mg of IV Lasix in emergency room physician paged hospitalist for admission for patient with acute exacerbation of congestive heart failure. Review of Systems All systems reviewed & are unremarkable except as noted in HPI and below PFSH All Active Problems (Updated 01/22/25 @ 07:28 by Portillo Villaseñor MD) Anemia (Chronic) Acute kidney injury superimposed on CKD (Acute) Hypothyroid (Chronic) Acute heart failure with reduced ejection fraction (HFrEF, <= 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 (Acute) Cardiomyopathy (Acute) Atrial fibrillation with rapid ventricular response (Acute) Heart failure with reduced ejection fraction (Acute) Iron refractory iron deficiency anemia (Acute) Nonhealing nonsurgical wound with fat layer exposed (Acute) Wound of left lower extremity (Acute) Anticoagulated on Coumadin (Acute) Lesion of skin of nose (Acute) Conductive hearing loss in right ear (Acute 02/23/15) Mixed conductive and sensorineural hearing loss of right ear with restricted hearing of left ear (Acute 07/25/16) Sensorineural hearing loss (SNHL) of left ear with restricted hearing of right ear (Acute 07/25/16) Sensorineural hearing loss, bilateral (Acute 02/25/17) Medical History Aortic stenosis, moderate Severe tricuspid regurgitation Abscess Bunion Memory deficit Elevated TSH Type 2 diabetes mellitus Hypocalcemia CKD (chronic kidney disease) Facial skin lesion Hyperlipidemia Asthma CAD (coronary artery disease) A-fib HTN (hypertension) Diabetes mellitus Lactose intolerance Osteoporosis Diverticulitis Allergic rhinitis Hiatal hernia Mitral valve stenosis Insomnia Leg cramps Surgical History Status post excisional debridement (~02/2024) Left Leg Mitral valve replaced History of bladder suspension procedure History of tonsillectomy H/O adenoidectomy Family History Father , d. 60 Throat cancer Mother , d. 80 Heart disease Social History Smoking/Tobacco Use Status: Never Smoking risk assessment performed?: Yes Alcohol Intake: never Drug use: Never Substance use type: does not use Household members: none Housing: house Number of Children: 4 Do you feel safe at home: Yes Do you feel safe in your relationship?: Yes Additional Social history: . lives alone in home on [address]. son lives nearby Meds Allergies and Home Medications Allergies Allergy/AdvReac Type Severity Reaction Status Date / Time peanut Allergy Severe Anaphylaxis Verified 01/22/25 06:36 Penicillins Allergy Unknown Pt thinks Verified 01/22/25 06:36 she gets a rash aminophylline Allergy unknown Verified 01/22/25 06:36 digoxin Allergy unknown Verified 01/22/25 06:36 enalaprilat (From Vasotec) Allergy unknown Verified 01/22/25 06:36 tree and shrub pollen Allergy Itching Verified 01/22/25 06:36 paper tape Allergy Intermediate Skin Rash, Uncoded 01/22/25 06:36 red and sore Home Medications ?Medication ?Instructions ?Recorded ?Confirmed ?Type albuterol sulfate 90 mcg/actuation 2 puff inhalation QID PRN PRN 09/27/19 01/22/25 History aerosol inhaler (ProAir HFA) alendronate 70 mg tablet 70 mg PO DIRECTED 09/27/19 01/22/25 History atorvastatin 10 mg tablet (Lipitor) 10 mg PO QPM 09/27/19 01/22/25 History cetirizine 10 mg tablet 10 mg PO QAM 09/27/19 01/22/25 History cholecalciferol (vitamin D3) 25 1,000 unit PO QAM 09/27/19 01/22/25 History mcg (1,000 unit) tablet (Vitamin D3) potassium chloride 10 mEq 10 meq PO QAM 09/27/19 01/22/25 History tablet,extended release(part/cryst) warfarin 5 mg tablet 2.5 - 5 mg PO DIRECTED PRN 09/27/19 01/22/25 History empagliflozin 25 mg tablet 10 mg PO DAILY 01/01/24 01/22/25 History (Jardiance) fluticasone propionate 50 2 spray intranasal DAILY 07/06/24 01/22/25 History mcg/actuation nasal spray,suspension (Flonase Allergy Relief) zolpidem 5 mg tablet 5 mg PO QHS 07/06/24 01/22/25 History ipratropium 0.5 mg-albuterol 3 mg 3 ml inhalation QID 08/13/24 01/22/25 History (2.5 mg base)/3 mL nebulization soln levothyroxine 75 mcg tablet 37.5 mcg (1/2 x 75 mcg) PO 10/18/24 01/22/25 Rx DAILY@0600 #30 tabs albuterol sulfate 2.5 mg/3 mL 2.5 mg inhalation Q4H PRN 11/04/24 01/22/25 History (0.083 %) solution for nebulization empagliflozin 25 mg tablet 25 mg PO DAILY 11/04/24 01/22/25 History (Jardiance) fluticasone 500 mcg-salmeterol 50 1 inh inhalation BID 11/04/24 01/22/25 History mcg/dose blistr powdr for inhalation multivitamin with minerals-iron 1 tab PO DAILY 11/04/24 01/22/25 History fumarate 27 mg-folic acid 1 mg tablet amiodarone 200 mg tablet (Pacerone) 200 mg PO DAILY #90 tabs 11/05/24 01/22/25 Rx spironolactone 25 mg tablet 25 mg PO DAILY #90 tabs 11/05/24 01/22/25 Rx torsemide 20 mg tablet 50 mg (2.5 x 20 mg) PO DAILY #240 11/05/24 01/22/25 Rx tabs Exam Narrative Exam Narrative: Well-appearing but fatigued older female laying in the chair no acute distress, ANO x 4, heart regular rate rhythm, lungs diffuse crackles throughout, abdomen soft, nontender, nondistended, significant bilateral lower extremity edema up to the mid ramirez Results Labs 01/22/25 04:35 01/22/25 04:35 Labs: Laboratory Results - last 24 hr 01/22/25 01/22/25 01/22/25 04:35 04:45 06:17 WBC 8.64 RBC 4.50 Hgb 12.1 Hct 39.1 MCV 87 MCH 26.9 L MCHC 30.9 L RDW 15.4 H Plt Count 256 MPV 10.7 Immature Gran % 1.4 Neutrophils % 85.7 Lymphocytes % 2.3 Monocytes % 8.9 Eosinophils % 1.4 Basophils % 0.3 Nucleated RBC % 0.5 H Absolute Neutrophils 7.40 H Absolute Lymphocytes 0.20 L Absolute Monocytes 0.77 Absolute Eosinophils 0.12 Absolute Basophils 0.03 PT 32.4 H INR 3.5 H VBG pH 7.33 VBG pCO2 44 VBG pO2 41 VBG HCO3 23 VBG Total CO2 21 L VBG O2 Saturation 67 VBG Base Excess -3 L Sodium 132 L Potassium 4.9 Chloride 96 L Carbon Dioxide 23.3 Anion Gap 12.7 H BUN 43 H Creatinine 1.8 H Est GFR (CKD-EPI 2020) 27.27 Glucose 239 H Calcium 8.8 Magnesium 2.7 H Total Bilirubin 1.5 H AST 66 H ALT 93 H Alkaline Phosphatase 292 H Troponin I 17 15 NT-Pro-B Natriuret Pep 29932 H Total Protein 6.7 Albumin 3.7 Urine Color Yellow Urine Clarity Clear Urine pH 6.0 Ur Specific Sneads 1.015 Urine Protein Trace Urine Ketones Negative Urine Blood Negative Urine Nitrite Negative Urine Bilirubin Negative Urine Urobilinogen 0.2 Ur Leukocyte Esterase Negative Urine Glucose 500 H Last Vital Signs Pulse 52 L 01/22/25 07:03 Resp 15 01/22/25 07:03 BP 116/40 L 01/22/25 07:03 Pulse Ox 97 01/22/25 07:03 Time Spent Time spent with Patient: >75 minutes Time was spent: preparing to see the patient(eg.review tests), obtaining and/or reviewing separately otained hiistory, ordering medications,tests, procedures, referring, communicating with other health hiv/aids care nurse, indepentently interpreting results, counseling the patient and care coordination
--- NOTE | 2025-01-22 08:19 | W.PC.ACHO ---
Registration Status: REG ER Primary Language: Preferred Language: Georgian ED Information & Data Chief Complaint Fall/Non TraumaCriteria 01/22/25 04:06 Triage Note PT states that she tripped 01/22/25 03:46 getting back into bed and slid onto carpeted floor. PT states that she did not hit her head. PT states that she has neck and lower back pain. Medical / Surgical History (Last Reviewed 01/22/25 @ 04:02 by Portillo Villaseñor MD) Aortic stenosis, moderate Severe tricuspid regurgitation Abscess Bunion Memory deficit Elevated TSH Type 2 diabetes mellitus Hypocalcemia CKD (chronic kidney disease) Facial skin lesion Hyperlipidemia Asthma CAD (coronary artery disease) A-fib HTN (hypertension) Diabetes mellitus Lactose intolerance Osteoporosis Diverticulitis Allergic rhinitis Hiatal hernia Mitral valve stenosis Insomnia Leg cramps (Last Reviewed 01/22/25 @ 04:02 by Portillo Villaseñor MD) Status post excisional debridement (~02/2024) Mitral valve replaced History of bladder suspension procedure History of tonsillectomy H/O adenoidectomy Most Recent Vital Signs Pulse 52 L 01/22/25 07:03 Pulse 58 L 01/22/25 07:03 Respiratory Rate 15 01/22/25 07:03 Blood Pressure 116/40 L 01/22/25 07:03 Blood Pressure Mean 65 01/22/25 07:03 Pulse Oximetry 97 01/22/25 07:03 Oxygen Delivery Method Room Air 01/22/25 03:46 Oxygen Flow Rate 0 01/22/25 03:46 Allergies peanut Allergy (Severe, Verified 01/22/25 06:36) Anaphylaxis anaphylaxis - does not carry an epi pen Penicillins Allergy (Unknown, Verified 01/22/25 06:36) Pt thinks she gets a rash aminophylline Allergy (Verified 01/22/25 06:36) unknown digoxin Allergy (Verified 01/22/25 06:36) unknown enalaprilat (From Vasotec) Allergy (Verified 01/22/25 06:36) unknown tree and shrub pollen Allergy (Verified 01/22/25 06:36) Itching paper tape Allergy (Intermediate, Uncoded 01/22/25 06:36) Skin Rash, red and sore IV IV Catheter Type [Right Saline Lock Antecubital] IV Catheter Gauge [Right 20 Antecubital] Diagnostics 01/22/25 01/22/25 01/22/25 Range/Units 06:17 04:45 04:35 WBC 8.64 (4.4-10.8) 10^3/uL RBC 4.50 (3.93-5.22) 10^6/uL Hgb 12.1 (11.2-15.7) g/dL Hct 39.1 (36.0-46.0) % MCV 87 (80-95) fL MCH 26.9 L (27.0-33.0) pg MCHC 30.9 L (32.0-36.0) % RDW 15.4 H (11.7-14.6) % Plt Count 256 (130-400) 10^3/uL MPV 10.7 (8.0-11.0) fL Immature Gran % 1.4 % Neutrophils % 85.7 % Lymphocytes % 2.3 % Monocytes % 8.9 % Eosinophils % 1.4 % Basophils % 0.3 % Nucleated RBC % 0.5 H (0.0-0.3) % Absolute Neutrophils 7.40 H (1.2-6.7) 10^3/uL Absolute Lymphocytes 0.20 L (1.2-3.4) 10^3/uL Absolute Monocytes 0.77 (0.1-0.8) 10^3/uL Absolute Eosinophils 0.12 (0.0-0.7) 10^3/uL Absolute Basophils 0.03 (0.0-0.2) 10^3/uL PT 32.4 H (9.1-11.1) sec INR 3.5 H (0.9-1.1) VBG pH 7.33 (7.31-7.41) VBG pCO2 44 (41-51) mmHg VBG pO2 41 mmHg VBG HCO3 23 (23-28) mmol/L VBG Total CO2 21 L (24-29) mmol/L VBG O2 Saturation 67 % VBG Base Excess -3 L (-2-3) mmol/L Sodium 132 L (136-145) mmol/L Potassium 4.9 (3.5-5.1) mmol/L Chloride 96 L (98-107) mmol/L Carbon Dioxide 23.3 (21.0-32.0) mmol/L Anion Gap 12.7 H (3-11) mmol/L BUN 43 H (7-18) mg/dL Creatinine 1.8 H (0.55-1.02) mg/dL Est GFR (CKD-EPI 2020) 27.27 (mL/min/1.73m2) Glucose 239 H (74-106) mg/dL Calcium 8.8 (8.5-10.1) mg/dL Magnesium 2.7 H (1.8-2.4) mg/dL Total Bilirubin 1.5 H (0.2-1.0) mg/dL AST 66 H (15-37) U/L ALT 93 H (14-59) U/L Alkaline Phosphatase 292 H (46-116) U/L Troponin I 15 17 (<or=51) ng/L NT-Pro-B Natriuret Pep 37292 H (<300) pg/mL Total Protein 6.7 (6.4-8.2) g/dL Albumin 3.7 (3.4-5.0) g/dL Urine Color Yellow (Yellow) Urine Clarity Clear (Clear) Urine pH 6.0 (5-8) Ur Specific [place] 1.015 (1.005-1.025) Urine Protein Trace (Neg-Trace) mg/dL Urine Ketones Negative (Negative) mg/dL Urine Blood Negative (Negative) Urine Nitrite Negative (Negative) Urine Bilirubin Negative (Negative) Urine Urobilinogen 0.2 (Up to 0.2) mg/dL Ur Leukocyte Esterase Negative (Negative) Urine Glucose 500 H (Negative) mg/dL Intake and Output - 24 Hour Total 01/22/25 03:34 thru 01/22/25 06:40 Output Total 350 Balance -350 Weight 70.942 kg Output: Urine 350 Other: Urine Color Pale Urinary Catheter Urinary Catheter Date of 01/22/25 Insertion [Urethral (Ornelas)] Time of insertion [Urethral ( 06:40 Ornelas)] Falls Risk Assessment History of Falls No History 01/22/25 03:49 Fall Total Score 0 01/22/25 03:49 Level of Risk Standard/Low Risk 01/22/25 03:49 Problems (Last Reviewed 01/22/25 @ 04:02 by Portillo Villaseñor MD) Acute kidney injury superimposed on CKD (Acute) Hypothyroid (Chronic) Acute heart failure with reduced ejection fraction (HFrEF, <= 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 (Acute) Notes 01/22/25 07:12 Nursing Notes by Juam Madrigal prior to administration of lasix. ED MD was made aware of PT BP and is ok with administration of medication and drip Nursing Note: Initialized on 01/22/25 07:12 - END OF NOTE v v v v v v v v v Sending and/or Receiving Nurses: Please use comment section below to note any information pertinent to the patient hand-off not included above. Information / Comments: Report received all questions answered. Report received from: Report received from JEANNINE Uriarte @ [phone]
[2025-01-22] MEDS: Normal Saline Flush 10 ML SYR IVP ×2 (09:11→20:12)
[2025-01-22] MEDS: Amiodarone 200 MG TAB PO (09:55)
[2025-01-22] MEDS: Spironolactone 25 MG TAB PO (09:55)
[2025-01-22] MEDS: Insulin Aspart 300 UNITS/3 ML PEN SC ×3 (11:58→22:02)
[2025-01-22] MEDS: Atorvastatin 10 MG TAB PO (20:12)
[2025-01-23] VITALS (8 sets, daily range): BP systolic 91–116; BP diastolic 52–63; PULSE 64–78; RESP 15–24; TEMP 36.6–37; O2SAT 92–95
[2025-01-23] MEDS: Acetaminophen 325 MG TAB 650 MG PO (01:32)
[2025-01-23] MEDS: Levothyroxine 75 MCG TAB 37.5 MCG PO (06:21)
[2025-01-23 07:01] LABS: HCT 33.9 % (36.0-46.0); HGB 10.8 g/dL (11.2-15.7); MCH 27.6 pg (27.0-33.0); MCHC 31.9 % (32.0-36.0); MCV 87 fL (80-95); MPV 10.1 fL (8.0-11.0); Platelet Count 233 10^3/uL (130-400); RBC 3.91 10^6/uL (3.93-5.22); RDW 15.5 % (11.7-14.6); RDW-SD 49.0 fL; WBC 8.26 10^3/uL (4.4-10.8)
[2025-01-23 07:10] LABS: Anion Gap 8.6 mmol/L (3-11); BUN 37 mg/dL (7-18); CO2 27.4 mmol/L (21.0-32.0); Calcium 8.5 mg/dL (8.5-10.1); Chloride 97 mmol/L (98-107); Estimated GFR 33.94 (mL/min/1.73m2); Glucose 213 mg/dL (74-106); Magnesium 2.5 mg/dL (1.8-2.4); Potassium 3.7 mmol/L (3.5-5.1); Sodium 133 mmol/L (136-145)
[2025-01-23 07:22] LABS: Prothrombin Time 44.2 sec (9.1-11.1)
[2025-01-23 07:27] LABS: INR 4.9 (0.9-1.1)
--- NOTE | 2025-01-23 08:19 | PDOC.CMIN ---
Date of service: 01/23/25 Time of Service: 08:19 Care Management Initial Assmt Initial Assessment Reason for Hospitalization: CHF Functional Status/Living Situation Patient Presentation: Sushma was sitting up in bed when CM met with her. She was alert and oriented and easily engaged in conversation with CM. Sushma lives alone in a mobile home in [place]. She has 4 children; her son Art and daughter Flaca live locally and the other 2 children live out of state. Sushma shared that Art visits almost every day, provides her transportation and is a strong source of support for her. She doesn't see her daughter as often as she is oxygen dependent and does not get out much. Sushma also has many grand children and great grandchildren but does not see them often as they are scattered throughout the country. Sushma was admitted with CHF. Her oxygen saturation has been in the mid-nineties on room air but Sushma stated that it is still hard to breathe. She also identified that her lower extremities are swollen. When asked, Sushma admitted that she does not weigh herself every day. She was also not clear about following dietary restrictions. CM explained the importance of daily weights and sodium restrictions for someone with CHF and Sushma verbalized understanding. CM will request a cardiac liason referral for Sushma to provide her with additional education regarding CHF. Town of Residence: [place] Resides with: Alone Significant Other/Family: Local Natural Supports: son Art Employment Status: Retired Instrumental Activities of Daily Living (ADLs): Independent Activities/Hobbies/SocialSupport: enjoys playing Bingo on Mondays and also likes to cook her own food Medications Medication Management: No Issues/Barriers identified Physical Functioning/Mobility Assistive Device: walker and cane - uses PRN Advance Directives Advance Directives: Do you have an Advance Directive: Y 11/30/24, 08:51 AD On File at [facility]: Y 11/30/24, 08:51 Date Asked 11/03/24 11/03/24, 13:17 AD Date Reviewed 01/05/25 01/05/25, 12:03 COLST On File at [facility] COLST Date Scanned Code Status Resuscitation Status Full Code Portal Pt does not currently have a portal and education provided: Yes Insurance Coverage/Financial Issues Insurance: Medicare Medicaid Care Team Visit Care Team Role Provider Type Mell Cueto MD Primary Care Provider [facility] STAFF PHYSICIAN Portillo Villaseñor MD Emergency Provider [facility] STAFF PHYSICIAN Jose Sullivan MD Admit Provider [facility] STAFF PHYSICIAN Attending Provider Discharge Potential Discharge Needs: PCP F/U Appt Anticipated Barriers to Discharge: None Identified Patient/Family Education Needs: Review discharge instructions, discuss Ask Me Three Transportation: Private vehicle Plan: Anticipate Sushma will be discharged home, possibly with new home health services, when medically stable. She will follow up with her PCP and plan of care and transport with family. CM will follow and continue to support discharge planning efforts. Social Determinants of Health Screening Social Determinants of health last assessed in clinic: 01/24/25 Will the Patient Participate in the Screening?: Yes Do you worry about having a steady place to live?: no Problems where you live: pests such as bugs, ants or mice In the past 12 months, have you had to go without electric, gas, oil or water in your home?: no 1. Within the past 12 months, we worried whether our food would run out before we got money to buy more.: Never true 2. Within the past 12 months, the food we bought just didn't last and we didn't have money to get more.: Never true Has lack of transportation kept you from medical appointments or from doing things needed for daily living?: no Has anyone in your life made you feel unsafe or unsupported?: no How hard is it for you to pay for the very basics like food, housing, medical care, and heating? Would you say it is:: Not hard at all Do you want help finding or keeping work or a job?: I do not need or want help If for any reason you need help with day-to-day activities such as bathing, preparing meals, shopping, managing finances, etc., do you get the help you need?: I don?t need any help How often do you feel lonely or isolated from those around you?: Never Do you speak a language other than Romansh at home?: No Comments: bedbugs Health Related Social Needs Health related social needs: inadequate housing (Z59.1) Health related social needs details: bed bugs PFSH All Active Problems (Updated 01/22/25 @ 07:28 by Portillo Villaseñor MD) Anemia (Chronic) Acute kidney injury superimposed on CKD (Acute) Hypothyroid (Chronic) Acute heart failure with reduced ejection fraction (HFrEF, <= 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 (Acute) Cardiomyopathy (Acute) Atrial fibrillation with rapid ventricular response (Acute) Heart failure with reduced ejection fraction (Acute) Iron refractory iron deficiency anemia (Acute) Nonhealing nonsurgical wound with fat layer exposed (Acute) Wound of left lower extremity (Acute) Anticoagulated on Coumadin (Acute) Lesion of skin of nose (Acute) Conductive hearing loss in right ear (Acute 02/23/15) Mixed conductive and sensorineural hearing loss of right ear with restricted hearing of left ear (Acute 07/25/16) Sensorineural hearing loss (SNHL) of left ear with restricted hearing of right ear (Acute 07/25/16) Sensorineural hearing loss, bilateral (Acute 02/25/17) Medical History Aortic stenosis, moderate Severe tricuspid regurgitation Abscess Bunion Memory deficit Elevated TSH Type 2 diabetes mellitus Hypocalcemia CKD (chronic kidney disease) Facial skin lesion Hyperlipidemia Asthma CAD (coronary artery disease) A-fib HTN (hypertension) Diabetes mellitus Lactose intolerance Osteoporosis Diverticulitis Allergic rhinitis Hiatal hernia Mitral valve stenosis Insomnia Leg cramps Surgical History Status post excisional debridement (~02/2024) Left Leg Mitral valve replaced History of bladder suspension procedure History of tonsillectomy H/O adenoidectomy Family History Father , d. 60 Throat cancer Mother , d. 80 Heart disease Social History Smoking/Tobacco Use Status: Never Smoking risk assessment performed?: Yes Alcohol Intake: never Drug use: Never Substance use type: does not use Household members: none Housing: house Number of Children: 4 Do you feel safe at home: Yes Do you feel safe in your relationship?: Yes Additional Social history: . lives alone in home on [address]. son lives nearby
[2025-01-23] MEDS: PHYTONADIONE 10 MG in Normal Saline 50 ML 200 MG IVPB (09:02)
[2025-01-23] MEDS: Normal Saline Flush 10 ML SYR IVP ×4 (09:02→19:49)
[2025-01-23] MEDS: Furosemide 100 MG/10 ML VIAL 40 MG IVP ×2 (09:02→16:29)
[2025-01-23] MEDS: Amiodarone 200 MG TAB PO (09:05)
[2025-01-23] MEDS: Insulin Aspart 300 UNITS/3 ML PEN SC ×4 (09:05→22:11)
[2025-01-23] MEDS: Polyethylene Glycol 3350 17 GM PACKET PO (09:05)
--- NOTE | 2025-01-23 16:14 | NUR.NOTE ---
Nursing Note: 01/22/25 multiples small bugs found on and around patient that appear to be bed bugs. PT's personal Belongings doubled bagged and sent to M/S, patient changed in to clean gown and all sheets on the stretcher changed after her arrival. When transported upstairs this RN covered PT in new blankets. Met M/S RN at the shower and helped transfer PT to the shower chair with MS RN.
[2025-01-23] MEDS: Atorvastatin 10 MG TAB PO (19:50)
[2025-01-23] MEDS: Zolpidem 5 MG TAB PO (19:50)
[2025-01-23] MEDS: Albuterol/Ipratropium 3 ML UPD VIAL IH (23:34)
[2025-01-24] VITALS (7 sets, daily range): BP systolic 100–136; BP diastolic 54–88; PULSE 57–91; RESP 17–24; TEMP 36.3–36.8; O2SAT 94–99
[2025-01-24] MEDS: Levothyroxine 75 MCG TAB 37.5 MCG PO (06:55)
[2025-01-24 07:12] LABS: INR 1.1 (0.9-1.1); Prothrombin Time 11.4 sec (9.1-11.1)
[2025-01-24] MEDS: Amiodarone 200 MG TAB PO (08:16)
[2025-01-24] MEDS: Acetaminophen 325 MG TAB 650 MG PO (08:16)
[2025-01-24] MEDS: Insulin Aspart 300 UNITS/3 ML PEN SC ×4 (08:16→22:04)
[2025-01-24] MEDS: Furosemide 40 MG/4 ML VIAL IVP (08:16)
[2025-01-24] MEDS: Normal Saline Flush 10 ML SYR IVP ×2 (08:17→20:21)
--- NOTE | 2025-01-24 08:52 | CMPROGNOTE_ITS ---
Date of service: 01/24/25 Time of Service: 08:52 Care Management Progress Note Progress Note Text Progress Note Text: Sushma was lying in bed when CM met with her. She was drowsy and stated that she was tired and had not slept well last night. When uSshma came to the ED it was noted that she appeared to have a bed bug infestation. Sushma was aware of this as her daughter and son had been infested before she was. They have been spraying the home but it has not been completely effective. A huddle was held with the nursing maintenance supervisor mechanical, Computer Patternmaker, TORO GOMEZ and 2 staff nurses from the unit present. The control plan was discussed and the decision was made to request that Sushma not have any visitors from home while hospitalized. CM called her son Art and informed him. He was receptive and stated that he would just call her on the phone. Sushma is making slow progress. She reported that she is feeling better however is still weak. JASON asked if she would like to go to a SNF for short term rehab and she said she would but only if it was across the street. CM informed her that [facility] is closed to admissions for the time being. Sushma then indicated she would then prefer to go home. Discharge Potential Discharge Needs: PCP F/U Appt Anticipated Barriers to Discharge: None Identified Patient/Family Education Needs: Review discharge instructions, discuss Ask Me Three Transportation: Private vehicle Plan: Anticipate Sushma will be discharged home, possibly with new home health services, when medically stable. She will follow up with her PCP and plan of care and transport with family. CM will follow and continue to support discharge planning efforts. Social Determinants of Health Screening Social Determinants of health last assessed in clinic: 01/24/25 Will the Patient Participate in the Screening?: Yes Do you worry about having a steady place to live?: no Problems where you live: pests such as bugs, ants or mice In the past 12 months, have you had to go without electric, gas, oil or water in your home?: no 1. Within the past 12 months, we worried whether our food would run out before we got money to buy more.: Never true 2. Within the past 12 months, the food we bought just didn't last and we didn't have money to get more.: Never true Has lack of transportation kept you from medical appointments or from doing things needed for daily living?: no Has anyone in your life made you feel unsafe or unsupported?: no How hard is it for you to pay for the very basics like food, housing, medical care, and heating? Would you say it is:: Not hard at all Do you want help finding or keeping work or a job?: I do not need or want help If for any reason you need help with day-to-day activities such as bathing, prep aring meals, shopping, managing finances, etc., do you get the help you need?: I don?t need any help How often do you feel lonely or isolated from those around you?: Never Do you speak a language other than Pashto at home?: No Comments: neyda Health Related Social Needs Health related social needs: inadequate housing (Z59.1) Health related social needs details: bed bugs
--- NOTE | 2025-01-24 09:35 | IN_ITS ---
PT Notes Visit Reasons: Acute exacerbation of CHP Physical Therapy Inpatient Initial Evaluation Date: 01/24/2025 Referring Doctor: Dr Sullivan PT Orders: PT CONSULT: PT Evaluation and treatment Precautions:Contact precautions ,Ornelas cath Patient Profile/Admitting Diagnosis: Pt is an 84 yo female who presented to the ED on 01/22/25 after slipping to the floor from the edge of her bed after using the commode. Pt work up in ED with diagnosis CHF, PRACHI on CKD, Afib, Hypothyroidism. On 01/24/25 pt found to have (+) bed bug bites. Pt to be treated for bed bug infestation. PMHX: Anemia (Chronic) Acute kidney injury superimposed on CKD (Acute) Hypothyroid (Chronic) Acute heart failure with reduced ejection fraction (HFrEF, <= 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 (Acute) Cardiomyopathy (Acute) Atrial fibrillation with rapid ventricular response (Acute) Heart failure with reduced ejection fraction (Acute) Iron refractory iron deficiency anemia (Acute) Non healing nonsurgical wound with fat layer exposed (Acute) Wound of left lower extremity (Acute) Anticoagulated on Coumadin (Acute) Lesion of skin of nose (Acute) Conductive hearing loss in right ear (Acute 02/23/15) Mixed conductive and sensorineural hearing loss of right ear with restricted hearing of left ear (Acute 07/25/16) Sensorineural hearing loss (SNHL) of left ear with restricted hearing of right ear (Acute 07/25/16) Sensorineural hearing loss, bilateral (Acute 02/25/17) Medical History Aortic stenosis, moderate Severe tricuspid regurgitation Abscess Bunion Memory deficit Elevated TSH Type 2 diabetes mellitus Hypocalcemia CKD (chronic kidney disease) Facial skin lesion Hyperlipidemia Asthma CAD (coronary artery disease) A-fib HTN (hypertension) Diabetes mellitus Lactose intolerance Osteoporosis Diverticulitis Allergic rhinitis Hiatal hernia Mitral valve stenosis Insomnia Leg cramps Surgical History Status post excisional debridement (~02/2024) Left LegMitral valve replaced History of bladder suspension procedure History of tonsillectomy H/O adenoidectomy Social History/Home Situation: Pt resides in onemoer with 2 steps to enter without rail. Pt independent with FWW or SPC. Independent ADLs, Son visits daily and takes her shopping. She states she enjoys [employer] Equipment Owned/DME: SPC, FWW Subjective: Pt reports she has pain in her left shoulder but does not recall how she hurt it. Objective: General Observation: elderly disheveled female semireclined in bed. BLE edema Mental Status: Alert and oriented x 4 able to follow instructions Pain: left shoulder it hurts but I don't know why Pt could not use pain scale. ROM: [] Right Upper Extremity: WFL Left Upper Extremity: WFL AAROM shoulder flexion and abduction although painful, elbow and wrist and hand WFL AROM Right Lower Extremity: WFL DF to neutral Left Lower Extremity: WFL DF to neutral Strength: [] Right Upper Extremity:grossly 3/5 Left Upper Extremity: shoulder 3-/5, elbow wrist 3/5 hand grasp good Right Lower Extremity: grossly 3/5 Left Lower Extremity: grossly 3/5 Sensation: intact Bed Mobility/Transfers: [] Supine to sit supervision with HOB elevated Sit to stand CGA cues for hand placement Stand to sit CGA cues for hand placement Bed to chair with FWW CGA Gait: amb with FWW CGA 50 feet with decreased step length BLE, slow rosy. forward flex trunk Balance: [] Static Sitting:Normal Dynamic Sitting:Good Static Standing: Good Dynamic Standing:Fair Special Tests: [] Mobility Limitations Standardized Measure [] [facility] 6 clicks Basic Mobility Inpatient Short Form: [] Raw Score: 18 CMS Score: 46.58% Informed Consent/Education: Patient instructed in purpose of PT consult. Assessment: Patient with pain in left shoulder no imaging completed. Patient is an 84 yo female who presents with clinical signs and symptoms consistent with current/admitting diagnoses that have resulted to mobility limitations, gait instability, generalized weakness, and impairment of motor control as demonstrated by the following impairment level findings: 1. Decreased strength to BUE/BLE major muscle groups 2. Impaired standing balance 3. Limitation of joint range of motion in left shoulder 4. impaired functional activity tolerance 5. pain left shoulder Impairments are contributing to the following functional limitations: 1. Inability to safely ambulate without assistive device 2. Increase completion time for mobility ADL performance 3. Increased fall risk 4. difficulty performing transfers independently 5. difficulty performing stairs safely without assistance. Patient is assessed as a low complexity based on the following: History: 84-year-old female with impairment level findings, functional limitations, and past medical history as indicated above Examination: Demonstrable impairment in strength, balance, and mobility level with underlying impairments and functional limitations as documented above Presentation: stable / evolving Decision Making: low Goals: 1. independent bed mobility 2. mod independent transfers with FWW 3. mod independent ambulation with FWW >50 feet x 2 4. CGA 2 steps to safely enter and exit home Plan of Care/Treatment Plan: 1-2x/day, 7 days/week x 1 week. Plan of care has been reviewed with the RETAIL SUPPORT ASSOCIATE providing the service under Physical Therapy direction. Initiate Physical Therapy intervention for strengthening, bed mobility, transfers, gait, stairs, balance training, use of assistive device. DISCHARGE RECOMMENDATIONS:Home with HHPT when medically appropriate for discharge TREATMENT CODE/TIME: 65198/ [id number] Thank you for the opportunity to participate in the care of this patient. Amy Patino, PT [facility]
--- NOTE | 2025-01-24 11:03 | W.PM.PROGNOT ---
Date of Service Date of service: 01/24/25 Time of Service: 11:04 Assessment and Plan Assessment and plan (1) Acute heart failure with reduced ejection fraction (HFrEF, <= 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: Status: Acute Assessment and plan: - History of CHF, reportedly at 1 point with EF less than 40%, though most recent echocardiogram in the system from October 2021 shows an EF of 50 to 55% - Will attempt to obtain echocardiogram if the patient is still hospitalized on Friday - However, given significantly elevated proBNP of 25,000 and significant exertional dyspnea and lower extremity edema, patient was given 60 mg IV Lasix in the emergency department - Good urine output, will transition back to home p.o. torsemide - Continue home spironolactone - Patient normally on torsemide, currently on hold (2) Acute kidney injury superimposed on CKD: Status: Acute Assessment and plan: - History of CKD, Cr 1.8 on admission -down to 1.5 as of AM 01/23 - Will follow-up a.m. creatinine (3) A-fib: Assessment and plan: - Currently rate controlled - Continue home warfarin and amiodarone - Monitor INR daily (4) Hypothyroid: Status: Chronic Assessment and plan: - Continue home Synthroid (5) CAD (coronary artery disease): Assessment and plan: - History of - No complaints of active chest pain - Continue home statin (6) Type 2 diabetes mellitus: Assessment and plan: - Hold home Jardiance - Sliding scale insulin, heart healthy carb consistent diet Subjective Subjective Interval history since last seen: Patient states that she feels a little bit better today though she still remains somewhat weak. Otherwise she has no other complaints or concerns at this time. Exam Narrative Exam Narrative: Well-appearing but fatigued older female laying in the chair no acute distress, ANO x 4, heart regular rate rhythm, lungs with minimal crackles in bilateral bases, abdomen soft, nontender, nondistended, improvement in bilateral lower extremity edema Objective Last Vital Signs Temp 98.2 F 01/24/25 07:22 Pulse 65 01/24/25 07:22 Resp 17 01/24/25 07:22 BP 100/70 01/24/25 07:22 Pulse Ox 94 01/24/25 07:22 Laboratory Results - last 24 hr 01/24/25 06:25 PT 11.4 H INR 1.1 Time Spent with Patient Time Spent with Patient: >50 minutes Time was spent: preparing to see the patient(eg.review tests), obtaining and/or reviewing separately otained hiistory, ordering medications,tests, procedures, referring, communicating with other health personal care home administrator, indepentently interpreting results, counseling the patient and care coordination
[2025-01-24] MEDS: Albuterol/Ipratropium 3 ML UPD VIAL IH (15:41)
[2025-01-24] MEDS: Atorvastatin 10 MG TAB PO (20:21)
[2025-01-24] MEDS: Zolpidem 5 MG TAB PO (20:21)
[2025-01-25] VITALS (7 sets, daily range): BP systolic 82–104; BP diastolic 55–77; PULSE 64–90; RESP 16–24; TEMP 36.3–36.7; O2SAT 93–99
[2025-01-25] MEDS: Albuterol/Ipratropium 3 ML UPD VIAL IH (01:45)
[2025-01-25] MEDS: Levothyroxine 75 MCG TAB 37.5 MCG PO (05:30)
[2025-01-25 06:32] LABS: INR 1.1 (0.9-1.1); Prothrombin Time 11.1 sec (9.1-11.1)
[2025-01-25] MEDS: Insulin Aspart 300 UNITS/3 ML PEN SC ×4 (08:41→21:22)
[2025-01-25] MEDS: Fluticasone NASAL SPRAY 16 GM BTL NS (08:41)
[2025-01-25] MEDS: Acetaminophen 325 MG TAB 650 MG PO (08:42)
[2025-01-25] MEDS: Torsemide 20 MG TAB 50 MG PO (08:42)
[2025-01-25] MEDS: Amiodarone 200 MG TAB PO (08:42)
[2025-01-25] MEDS: Empaglifozin 25 MG TAB PO (08:42)
[2025-01-25] MEDS: Normal Saline Flush 10 ML SYR IVP ×2 (08:43→21:17)
[2025-01-25 08:46] LABS: HCT 37.8 % (36.0-46.0); HGB 11.9 g/dL (11.2-15.7)
[2025-01-25 09:08] LABS: Anion Gap 4.3 mmol/L (3-11); BUN 39 mg/dL (7-18); CO2 30.7 mmol/L (21.0-32.0); Calcium 9.2 mg/dL (8.5-10.1); Chloride 99 mmol/L (98-107); Estimated GFR 36.87 (mL/min/1.73m2); Glucose 203 mg/dL (74-106); Potassium 4.0 mmol/L (3.5-5.1); Sodium 134 mmol/L (136-145)
[2025-01-25] MEDS: Budesonide/Formoterol 160/4.5 6 GM 60 PUFF INH IH ×2 (11:17→21:16)
--- NOTE | 2025-01-25 13:39 | CMPROGNOTE_ITS ---
Date of service: 01/25/25 Time of Service: 11:00 Care Management Progress Note Progress Note Text Progress Note Text: Sushma was sitting up in bed when CM met with her today. She seemed a bit down today and stated that she is really tired, and does not feel much better at all. She stated that she had been up in the chair for a while this morning, and stated that really wore her out. She was not wearing any oxygen, but still seemed a bit short of breath. Sushma stated that she is not going home today, and it won't be tomorrow, either. Since Sushma did not much feel like talking, our visit was short. Discharge Potential Discharge Needs: PCP F/U Appt Anticipated Barriers to Discharge: None Identified Patient/Family Education Needs: Review discharge instructions, discuss Ask Me Three Transportation: Private vehicle (with son, Art) Plan: Anticipate Sushma will be discharged home, with new home health services, when medically stable. She will follow up with her PCP and plan of care and transport with family. CM will follow and continue to support discharge planning efforts. Social Determinants of Health Screening Social Determinants of health last assessed in clinic: 01/25/25 Will the Patient Participate in the Screening?: Yes Do you worry about having a steady place to live?: no Problems where you live: pests such as bugs, ants or mice In the past 12 months, have you had to go without electric, gas, oil or water in your home?: no 1. Within the past 12 months, we worried whether our food would run out before we got money to buy more.: Don't know/refused 2. Within the past 12 months, the food we bought just didn't last and we didn't have money to get more.: Don't know/refused Has lack of transportation kept you from medical appointments or from doing things needed for daily living?: no Has anyone in your life made you feel unsafe or unsupported?: no How hard is it for you to pay for the very basics like food, housing, medical care, and heating? Would you say it is:: Not hard at all Do you want help finding or keeping work or a job?: I do not need or want help If for any reason you need help with day-to-day activities such as bathing, preparing meals, shopping, managing finances, etc., do you get the help you need?: I don?t need any help How often do you feel lonely or isolated from those around you?: Never Do you speak a language other than Maori at home?: No Comments: bedbugs Health Related Social Needs Health related social needs: inadequate housing (Z59.1) Health related social needs details: bed bugs Anticipated HH Services Anticipated HH Services at Discharge [facility] Needed, RESPIRATORY MEDICINE PHYSICIAN, OT, PT and RN Following Provider: Rom.
--- NOTE | 2025-01-25 14:22 | W.PM.PROGNOT ---
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 torsemide at higher dose of 50mg. Weight up today but different scale, follow - Continue home empagliflozin. Spironolactone held 01/23, not on SHABANA agent, but BP too low to start now. (2) Acute kidney injury superimposed on CKD: Status: Acute Assessment and plan: - History of CKD, Cr 1.8 on admission -down to 1.4 as of AM 01/24, continue to monitor. - Will follow-up a.m. creatinine (3) A-fib: Assessment and plan: - Currently rate controlled - Continue home warfarin and amiodarone - Monitor INR daily (4) Hypothyroid: Status: Chronic Assessment and plan: - Continue home Synthroid. Last TSH was high, related to amiodarone. With fatigue, repeat TSH and titrate prn. (5) CAD (coronary artery disease): Assessment and plan: - History of CAD - No complaints of active chest pain - Continue home statin, anticoagulation (6) Type 2 diabetes mellitus: Assessment and plan: - Hold home Jardiance, though with CKD I'm not sure it is doing much for her blood sugar. 10mg dose may be just as good for CV effect. - sugars high here, start low dose glargine insulin - Sliding scale insulin, heart healthy carb consistent diet (7) Elevated transaminase level: Status: Acute Assessment and plan: related to CHF? amiodarone also a risk. Follow this to trend. If CHF should see improvement. Subjective Subjective Patient reports: no new complaints, tolerating a regular diet and shortness of breath; denies diarrhea, vomiting or fever Interval history since last seen: tele: Afib, rates 65-95 She feels tired, even sitting up in chair is exhausting. Was up all night urinating. She feels like her legs are less swollen. She is still short of breath with any exertion. No chest pain. She is somewhat lightheaded when she is up. No palpitations. Exam Narrative Exam Narrative: Well-appearing but fatigued older female laying in the chair no acute distress, ANO x 4, heart irregular rate/rhythm, lungs with bibasilar crackles, abdomen soft, nontender, nondistended. 1+bilateral lower extremity edema, no cyanosis. Objective Last Vital Signs Temp 36.5 C 01/25/25 11:16 Pulse 82 01/25/25 11:16 Resp 18 01/25/25 11:16 BP 98/56 L 01/25/25 11:37 Pulse Ox 96 01/25/25 11:21 Laboratory Results - last 24 hr 01/25/25 05:50 Hgb 11.9 Hct 37.8 PT 11.1 INR 1.1 Sodium 134 L Potassium 4.0 Chloride 99 Carbon Dioxide 30.7 Anion Gap 4.3 BUN 39 H Creatinine 1.4 H Est GFR (CKD-EPI 2020) 36.87 Glucose 203 H Calcium 9.2 Time Spent with Patient Time Spent with Patient: 35-49 minutes Time was spent: preparing to see the patient(eg.review tests), obtaining and/or reviewing separately otained hiistory, ordering medications,tests, procedures, referring, communicating with other health care transition manager, indepentently interpreting results, counseling the patient and care coordination
--- NOTE | 2025-01-25 14:30 | PTTR_ITS ---
PT Notes Visit Reasons: Acute Exacerbation of CHP Physical Therapy Inpatient Treatment Note Date: 01/25/2025 Precautions: Fall. Standard. Activity as tolerated. Subjective: Patient reports she is feeling very tired and weak today. Objective: Mental Status: Alert and oriented as to person, place, time, and purpose. Able to pay attention, focus, and respond appropriately. Pain: None reported Vital Signs: monitored by Nursing Bed Mobility/Transfers: Minimal cueing provided for use of B hands as needed for support, movement sequence, AD management, and posture to reduce fall risk and minimize pain report Sit to supine min assist for bilateral lower extremities Sit to stand contact guard assist with FWW Stand to sit stand by assist with FWW Bed to reclining chair contact guard assist with FWW Chair to bedside commode contact guard assist with FWW Gait: Facilitated safe and correct performance of level surface ambulation covering a distance of20 feet x 2 using FWW with CGA Sandrine slowed. Directional change slowed. Minimal cueing provided for AD management only. NO LOB. Minimal SOB noted. Balance: Static Sitting: Normal Dynamic Sitting: Normal Static Standing: Fair Dynamic Standing: Fair Assessment: Pt unable to tolerate progression with distance this session . Pt ambulated shorter distance than on evaluation. Pt overall withdrawn and reduced motivation to perform functional tasks. After session Nurse reported BPS are lower and may be limiting her. Pt noted with BLE edema 1+ pitting . Nurse reports this is reducing since admission. Plan of Care/Treatment Plan: 1-2x/day, 7 days/week x 1 week. --Plan to work on stair negotiation and seated/standing level strengthening as tolerated in the next sessions. DISCHARGE RECOMMENDATIONS: [] Home with no services [] [X] Home with services. VS Short term SNF. Patient will benefit from home health PT services in order to progress mobility level using least restrictive assistive ambulatory device, assess home safety, identify additional equipment needs, and establish a functional maintenance program that will increase ability of patient to remain at home. [] Home with outpatient PT [] [] SNF for continued rehabilitation [] [] [facility] [] [] SNF versus LTC based on ability to participate and progress [] TREATMENT CODE/TIME: 72841/ [id number].
[2025-01-25] MEDS: Zolpidem 5 MG TAB PO (21:17)
[2025-01-25] MEDS: Atorvastatin 10 MG TAB PO (21:17)
[2025-01-25] MEDS: Insulin Glargine 300 UNITS/3 ML PEN 10 UNITS SC (21:23)
[2025-01-26] MEDS: Normal Saline Flush 10 ML SYR IVP ×3 (01:57→19:34)
[2025-01-26 04:45] VITALS: BP 85/59; PULSE 61; RESP 16; TEMP 36.8; O2SAT 98
[2025-01-26] MEDS: Levothyroxine 75 MCG TAB 37.5 MCG PO (05:47)
[2025-01-26 07:06] LABS: INR 1.3 (0.9-1.1); Prothrombin Time 12.5 sec (9.1-11.1)
[2025-01-26 07:12] VITALS: BP 90/59; PULSE 78; RESP 28; TEMP 36.3; O2SAT 96
[2025-01-26 07:17] LABS: ALT 35 U/L (14-59); AST 20 U/L (15-37); Albumin 2.8 g/dL (3.4-5.0); Alkaline Phosphatase 236 U/L (46-116); Anion Gap 4.2 mmol/L (3-11); BUN 35 mg/dL (7-18); Bilirubin, Total 0.9 mg/dL (0.2-1.0); CO2 31.8 mmol/L (21.0-32.0); Calcium 8.7 mg/dL (8.5-10.1); Chloride 100 mmol/L (98-107); Estimated GFR 40.30 (mL/min/1.73m2); Glucose 179 mg/dL (74-106); Magnesium 2.4 mg/dL (1.8-2.4); Potassium 3.3 mmol/L (3.5-5.1); Sodium 136 mmol/L (136-145); Total Protein 5.9 g/dL (6.4-8.2)
[2025-01-26] MEDS: Amiodarone 200 MG TAB PO (07:55)
[2025-01-26] MEDS: Torsemide 20 MG TAB 50 MG PO (07:55)
[2025-01-26] MEDS: Potassium Chloride 20 MEQ TABCR 40 MEQ PO (07:56)
[2025-01-26] MEDS: Insulin Aspart 300 UNITS/3 ML PEN SC ×4 (07:56→21:15)
[2025-01-26] MEDS: Empaglifozin 25 MG TAB PO (07:56)
[2025-01-26] MEDS: Budesonide/Formoterol 160/4.5 6 GM 60 PUFF INH IH ×2 (08:35→20:15)
[2025-01-26 08:46] LABS: TSH (W/Ref FT4) 9.14 uIU/mL (0.36-3.74)
--- NOTE | 2025-01-26 08:54 | CMPROGNOTE_ITS ---
Date of service: 01/26/25 Time of Service: 08:54 Care Management Progress Note Progress Note Text Progress Note Text: Swetha was lying in bed when CM met with her. She appeared pale and admitted to being very tired. Sushma has not needed supplemental oxygen to maintain her O2 saturation >90 % except for a brief period yesterday morning, however she continues to say that she is fatigued and short of breath. Sushma continues to work with PT who is recommending STR vs HH PT. CM asked Sushma if she felt she would be able to go home alone and care for herself and she stated that she knows she cannot. When asked again about STR she stated that her preference is still to go to [facility]. CM again explained that they were closed to admissions as opposed to just not having a bed. CM suggested that she reconsider going to a different facility and Sushma agreed to think about it. Discharge Potential Discharge Needs: PCP F/U Appt Anticipated Barriers to Discharge: None Identified Patient/Family Education Needs: Review discharge instructions, discuss Ask Me Three Transportation: Private vehicle Plan: Anticipate Sushma will be discharged home, with new home health services, when medically stable. She will follow up with her PCP and plan of care and transport with family. CM will follow and continue to support discharge planning efforts. Social Determinants of Health Screening Social Determinants of health last assessed in clinic: 01/26/25 Will the Patient Participate in the Screening?: Yes Do you worry about having a steady place to live?: no Problems where you live: pests such as bugs, ants or mice In the past 12 months, have you had to go without electric, gas, oil or water in your home?: no 1. Within the past 12 months, we worried whether our food would run out before we got money to buy more.: Never true 2. Within the past 12 months, the food we bought just didn't last and we didn't have money to get more.: Never true Has lack of transportation kept you from medical appointments or from doing things needed for daily living?: no Has anyone in your life made you feel unsafe or unsupported?: no How hard is it for you to pay for the very basics like food, housing, medical c are, and heating? Would you say it is:: Not hard at all Do you want help finding or keeping work or a job?: I do not need or want help If for any reason you need help with day-to-day activities such as bathing, preparing meals, shopping, managing finances, etc., do you get the help you need?: I don?t need any help How often do you feel lonely or isolated from those around you?: Never Do you speak a language other than Central African at home?: No Comments: bedbugs Health Related Social Needs Health related social needs: inadequate housing (Z59.1) Health related social needs details: bed bugs
[2025-01-26 11:09] VITALS: BP 82/54; PULSE 99; RESP 20; TEMP 36.3; O2SAT 97
--- NOTE | 2025-01-26 12:08 | PT.INTREAT ---
PT Notes Visit Reasons: Acute Exacerbation of CHP Physical Therapy Inpatient Treatment Note Date: 01/26/2025 Precautions: Fall. Standard. Activity as tolerated. Subjective: Patient reports she is feeling very tired and weak again today. Objective: BLE edema increased from prior day. MD aware at end of first session. Mental Status: Alert and oriented as to person, place, time, and purpose. Able to pay attention, focus, and respond appropriately. Pain: None reported Vital Signs: monitored by Nursing AM/PM Sessions Bed Mobility/Transfers: Minimal cueing provided for use of B hands as needed for support, movement sequence, AD management, and posture to reduce fall risk and minimize pain report Sit to supine min assist for bilateral lower extremities Sit to stand contact guard assist with FWW Stand to sit stand by assist with FWW Bed to reclining chair contact guard assist with FWW Chair to bedside commode contact guard assist with FWW Gait: Facilitated safe and correct performance of level surface ambulation covering a distance of 20 feet x 2 using FWW with CGA Sandrine slowed. Directional change slowed. Minimal cueing provided for AD management only. NO LOB. Minimal SOB noted. Balance: Static Sitting: Normal Dynamic Sitting: Normal Static Standing: Fair Dynamic Standing: Fair Assessment: Pt unable to tolerate progression with distance this session . . Pt overall withdrawn and reduced motivation to perform functional tasks. . Pt noted with BLE edema 2+ pitting . Pt with SOB and fatigue. MD present at end of first session. Plan of Care/Treatment Plan: 1-2x/day, 7 days/week x 1 week. --Plan to work on stair negotiation and seated/standing level strengthening as tolerated in the next sessions. DISCHARGE RECOMMENDATIONS: [] Home with no services [] [X] Home with services. VS Short term SNF. Patient will benefit from home health PT services in order to progress mobility level using least restrictive assistive ambulatory device, assess home safety, identify additional equipment needs, and establish a functional maintenance program that will increase ability of patient to remain at home. [] Home with outpatient PT [] [] SNF for continued rehabilitation [] [] [facility] [] [] SNF versus LTC based on ability to participate and progress [] TREATMENT CODE/TIME: first session: 74373/ [id number] second session 33197/ [id number].
--- NOTE | 2025-01-26 13:05 | PHA.REVIEW2 ---
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 (Acute) peanut Allergy (Severe, Verified 01/22/25 06:36) Anaphylaxis Penicillins Allergy (Unknown, Verified 01/22/25 06:36) Pt thinks she gets a rash aminophylline Allergy (Verified 01/22/25 06:36) unknown digoxin Allergy (Verified 01/22/25 06:36) unknown enalaprilat (From Vasotec) Allergy (Verified 01/22/25 06:36) unknown tree and shrub pollen Allergy (Verified 01/22/25 06:36) Itching paper tape Allergy (Intermediate, Uncoded 01/22/25 06:36) Skin Rash, red and sore Resuscitation Status Full Code Height 5 ft 3 in Weight 66.9 kg Pharmacy Admission Review Renal Dosing Renal Dosing: BUN 35 mg/dL (7-18) H 01/26/25 06:35 Creatinine 1.3 mg/dL (0.55-1.02) H 01/26/25 06:35 Medications needing adjustments: Reviewed (CrCl 28.99 mL/min, SCr decreased from 1.4) List of meds needing interventions: Current medications are okay Anticoagulation Anticoagulation: Hgb 11.9 g/dL (11.2-15.7) 01/25/25 05:50 Hct 37.8 % (36.0-46.0) 01/25/25 05:50 Plt Count 233 10^3/uL (130-400) 01/23/25 06:38 INR 1.3 (0.9-1.1) H 01/26/25 06:35 Creatinine 1.3 mg/dL (0.55-1.02) H 01/26/25 06:35 DVT Prophylaxis: Intervened (None ordered, progress note mentioned to continue patients home warfarin? I spoke with provider during morning meeting, provider looking into it.) Relevant Labs Relevant Labs: Sodium 136 mmol/L (136-145) 01/26/25 06:35 Potassium 3.3 mmol/L (3.5-5.1) L 01/26/25 06:35 Chloride 100 mmol/L (98-107) 01/26/25 06:35 Magnesium 2.4 mg/dL (1.8-2.4) 01/26/25 06:35 Electrolytes, C-Reactive P, ESR: Reviewed (40 mEq PO potassium given this morning) DM Control DM Control: Glucose 179 mg/dL (74-106) H 01/26/25 06:35 Finger Stick Blood Glucose 238 1158 Finger Stick Blood Glucose 238 1146 Finger Stick Blood Glucose 238 1146 Finger Stick Blood Glucose 196 0756 Finger Stick Blood Glucose 196 0740 Finger Stick Blood Glucose 196 0740 DM Control: Intervened Insulin Dosing, Diabetic Medication: Has orders for SS insulin, insulin glargine 10units at bedtime and Jardiance 25mg daily. Spoke with provider regarding Jardiance as progress note from yesterday mentioned holding but order is still active. Provider is looking into it. Cardiac Review Cardiac Review: Troponin I 15 ng/L (<or=51) 01/22/25 06:17 NT-Pro-B Natriuret Pep 92956 pg/mL (<300) H 01/22/25 04:35 Blood Pressure 82/54 1109 Blood Pressure 90/59 0712 Blood Pressure 85/59 0445 BP, HR, EF%: Reviewed (HR 99) List meds needing interventions: Has orders for amiodarone 200mg daily and torsemide 50mg daily QTc Review QTc: Reviewed (548 from 01/22) List meds needing interventions: On amiodarone, provider aware IV to PO Switch IV Medications: Reviewed Home Meds Home Med List reviewed: Intervened Relevent Home Meds Not ordered & why?: spironolactone (on hold per H+P), alendronate (weekly), vitamin D3, Advair (substituted with Symbicort per pharmacy protocol), multivitamin, potassium and warfarin Spoke to provider regarding warfarin (see DVT prophylaxis section) Asked nurse to see if patient takes carvedilol at home. Was recently filled but not on home med list. Waiting to hear back. Current Meds Current Medication Order Review: Intervened Comments: Discontinued duplicate glucose oral gel order
--- NOTE | 2025-01-26 13:35 | W.NUTRFU ---
Date of service: 01/26/25 Time of Service: 13:35 Nutrition Note NOTE: Have met with Sushma over the last 2 days while filling in kitchen and getting meal orders. She is being treated for acute heart failure, PRACHI on CKD, A-fib, elevated transaminase level. History includes DMII, hypothyroid. Tolerating diet (ordered for heart health, consistent CHO diet) - will change to consistent CHO only to help bolster intake. She requests smaller portions at meals and has been offered Boost ONS TID at meals with fair intake but as of late has grown tired of trying to drink them. will have kitchen staff offer at meals but not force as she can be overwhelmed by too much food. 01/06/25 A1C 6.9% with hx of <8% over the last 4 years. Glucose has been running high - 10u basal insulin added to corrections yesterday and FPG 179 this morning shows improvement. Was 196 at breakfast today and 238 at lunch - ordered for moderate scale for corrections at meals and 22:00 Takes 25mg empagliflozin at home - continued at this time. GFR at 40 today. Total protein and albumin labs low today. NFPE not performed - pt declined at this time. weight hx looks relatively stable. Taking 25-100% at meals per nursing documentation. Estimated energy needs: 1672kcals (25kcal/kg), 70-80g protein (1-1.2g/kg) and 1672mL fluid (25mL /kg) Nutrition dx: impaired ability to prepare foods/meals related to chronic medical conditions and advanced age as evidenced by pt interview and noted skipping meals sometimes or just grazing type of eating on prepared items. Intervention: reglular meals during admission with offerings of ONS TID to help supply additional protein energy kcals on top of small portions at meals. Would also recommend addition/titration of insulin therapy to move toward goal of 180 or less for fingersticks and <150 for fasting. Basal insulin ordered yesterday, would consider additional 1:20 ratio for carb coverage at meals and titrating basal up 3 units q 2-3 days until goal achieved. Will monitor glucose and nutrition-related labs, weight, po intake, ONS intake/toleration/acceptance Time Spent in Nutritional Counseling and Treatment: 15 min
[2025-01-26] MEDS: Furosemide 40 MG/4 ML VIAL 60 MG IVP (15:50)
--- NOTE | 2025-01-26 17:18 | CHAPLAIN ---
I had a brief visit with Sushma. She was resting in bed. She said she had some tests and scans today that pooped me out. She is waiting for her son to call, so we moved the phone to where she can reach it. I will continue to visit.
[2025-01-26 18:33] VITALS: BP 86/58; PULSE 98; RESP 18; TEMP 36.8; O2SAT 98
--- NOTE | 2025-01-26 19:15 | PGE_ITS ---
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 - Was responding to IV furosemide, now weight up on oral torsemide and edema worse - Resume IV furosemide. BPs soft but she may be off starling curve, diruesis should help. - Continue empagliflozin but cut to HF dose. Spironolactone held 01/23, will resume low dose as should help duiresis. - Not on SHABANA agent, but BP too low to start now. -given challenging case, ask for cardiology help. - also palliative given multiple recent admissions and poor QOL since prolonged admission this Winter/spring. (2) Acute kidney injury superimposed on CKD: Status: Acute Assessment and plan: - History of CKD, Cr 1.8 on admission -down to 1.3 as of AM 01/26, continue to monitor. (3) A-fib: Assessment and plan: - Currently rate controlled - Continue amiodarone. She was on warfarin but INR was high on admission, now low and still being held. D/w patient, will start apixaban instead. (4) Hypothyroid: Status: Chronic Assessment and plan: TSH still high, related to amiodarone. With fatigue, repeat TSH and titrate prn. (5) CAD (coronary artery disease): Assessment and plan: - History of CAD - No complaints of active chest pain - Continue home statin, anticoagulation (6) Type 2 diabetes mellitus: Assessment and plan: - Continue Jardiance, though with CKD I'm not sure it is doing much for her blood sugar. 10mg should be just as good for CV effect. - sugars high here, started low dose glargine in 01/25, increase slightly. - Sliding scale insulin, heart healthy carb consistent diet (7) Elevated transaminase level: Status: Acute Assessment and plan: related to CHF? amiodarone also a risk, but much imrpoved on repeat suggesting this was CHF. Subjective Subjective Patient reports: voiding w/o difficulty; denies blood in stool or fever Interval history since last seen: No new complaints, but she is still exhausted. Legs are more swollen today. Not much appetite, but trying to eat. Breathing is about the same. Exam Narrative Exam Narrative: Well-appearing but fatigued older female laying in bed no acute distress, ANO x 4, heart irregular rate/rhythm, lungs with slight bibasilar crackles and wheeze, abdomen soft, nontender, nondistended. 2+bilateral lower extremity edema, no cyanosis. Objective Last Vital Signs Temp 36.8 C 01/26/25 18:33 Pulse 98 H 01/26/25 18:33 Resp 18 01/26/25 18:33 BP 86/58 L 01/26/25 18:33 Pulse Ox 98 01/26/25 18:33 Laboratory Results - last 24 hr 01/26/25 06:35 PT 12.5 H INR 1.3 H Sodium 136 Potassium 3.3 L Chloride 100 Carbon Dioxide 31.8 Anion Gap 4.2 BUN 35 H Creatinine 1.3 H Est GFR (CKD-EPI 2020) 40.30 Glucose 179 H Calcium 8.7 Magnesium 2.4 Total Bilirubin 0.9 AST 20 ALT 35 Alkaline Phosphatase 236 H Total Protein 5.9 L Albumin 2.8 L TSH 9.14 H Free T4 0.95 Time Spent with Patient Time Spent with Patient: 35-49 minutes Time was spent: preparing to see the patient(eg.review tests), obtaining and/or reviewing separately otained hiistory, ordering medications,tests, procedures, referring, communicating with other health progressive care unit registered nurse, indepentently interpreting results, counseling the patient and care coordination
[2025-01-26] MEDS: Apixaban 5 MG TAB PO (19:34)
[2025-01-26] MEDS: Atorvastatin 10 MG TAB PO (19:34)
[2025-01-26] MEDS: Insulin Glargine 300 UNITS/3 ML PEN 12 UNITS SC (21:16)
[2025-01-26] MEDS: Zolpidem 5 MG TAB PO (21:19)
[2025-01-26 23:46] VITALS: BP 92/64; PULSE 82; RESP 22; TEMP 36.6; O2SAT 97
[2025-01-27 03:32] VITALS: BP 92/58; PULSE 75; RESP 20
[2025-01-27] MEDS: Levothyroxine 50 MCG TAB PO (05:08)
[2025-01-27 06:58] LABS: Anion Gap 3.8 mmol/L (3-11); BUN 33 mg/dL (7-18); CO2 32.2 mmol/L (21.0-32.0); Calcium 8.3 mg/dL (8.5-10.1); Chloride 101 mmol/L (98-107); Estimated GFR 49.24 (mL/min/1.73m2); Glucose 141 mg/dL (74-106); Potassium 3.6 mmol/L (3.5-5.1); Sodium 137 mmol/L (136-145)
[2025-01-27 07:07] VITALS: BP 95/60; PULSE 78; TEMP 36.4; O2SAT 96
[2025-01-27] MEDS: Budesonide/Formoterol 160/4.5 6 GM 60 PUFF INH IH ×2 (08:03→20:30)
--- NOTE | 2025-01-27 08:36 | W.CARDCONSUL ---
Date of service: 01/27/25 Time of Service: 08:36 Assessment and Plan Assessment and plan (1) Heart failure with reduced ejection fraction: Status: Acute Assessment and plan: Patient is still volume overloaded. Efforts should be made to continue diuresis. Overall options are limited and palliative care consult to determine goals of care would be appropriate (2) H/O mitral valve replacement with mechanical valve: Status: Acute Assessment and plan: Patient has a mechanical mitral valve replacement. Unfortunately she cannot take one of the newer anticoagulants given this history. She needs to be changed back to warfarin (3) A-fib: Assessment and plan: Heart rate is acceptable. Because of her mechanical valve, she needs to be on warfarin for stroke prevention History of Present Illness Narrative: This is an unfortunate 84-year-old woman with a longstanding history. It includes a mechanical mitral valve replacement done remotely, for which she has been maintained long-term on warfarin. More recently she was hospitalized at [facility] in July 2024 with cardiogenic shock and respiratory failure. She had severe left ventricular dysfunction with an ejection fraction of less than 25%. She had a type II myocardial infarction. She additionally was found to have moderate aortic stenosis and severe tricuspid regurgitation. Her medication adjustments were limited by relative hypotension She reportedly was admitted to the hospital after she fell at home. It appears that she has been changed from warfarin to apixaban given difficulty in controlling her INR She is very frail. She complains of wheezing. Her legs remain quite edematous Review of Systems Narrative: Admits to shortness of breath [facility] All Active Problems (Updated 01/27/25 @ 08:41 by Stephanie Brown MD) H/O mitral valve replacement with mechanical valve (Acute) Elevated transaminase level (Acute) Anemia (Chronic) Acute kidney injury superimposed on CKD (Acute) Hypothyroid (Chronic) Acute heart failure with reduced ejection fraction (HFrEF, <= 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 (Acute) Cardiomyopathy (Acute) Atrial fibrillation with rapid ventricular response (Acute) Heart failure with reduced ejection fraction (Acute) Iron refractory iron deficiency anemia (Acute) Nonhealing nonsurgical wound with fat layer exposed (Acute) Wound of left lower extremity (Acute) Anticoagulated on Coumadin (Acute) Lesion of skin of nose (Acute) Conductive hearing loss in right ear (Acute 02/23/15) Mixed conductive and sensorineural hearing loss of right ear with restricted hearing of left ear (Acute 07/25/16) Sensorineural hearing loss (SNHL) of left ear with restricted hearing of right ear (Acute 07/25/16) Sensorineural hearing loss, bilateral (Acute 02/25/17) Medical History Aortic stenosis, moderate Severe tricuspid regurgitation Abscess Bunion Memory deficit Elevated TSH Type 2 diabetes mellitus Hypocalcemia CKD (chronic kidney disease) Facial skin lesion Hyperlipidemia Asthma CAD (coronary artery disease) A-fib HTN (hypertension) Diabetes mellitus Lactose intolerance Osteoporosis Diverticulitis Allergic rhinitis Hiatal hernia Mitral valve stenosis Insomnia Leg cramps Surgical History Status post excisional debridement (~02/2024) Left Leg Mitral valve replaced History of bladder suspension procedure History of tonsillectomy H/O adenoidectomy Family History Father , d. 60 Throat cancer Mother , d. 80 Heart disease Social History Smoking/Tobacco Use Status: Never Smoking risk assessment performed?: Yes Alcohol Intake: never Drug use: Never Substance use type: does not use Household members: none Housing: house Number of Children: 4 Do you feel safe at home: Yes Do you feel safe in your relationship?: Yes Additional Social history: . lives alone in home on [address]. son lives nearby Exam Const Other: Tiny elderly woman who ate all her breakfast Neck Other: Neck vein distention Resp Other: Crackles, mild expiratory wheeze Cardio Other: Irregularly irregular, 2/6 systolic murmur Extrem Other: At least 3+ edema Results Last Vital Signs Temp 36.4 C 01/27/25 07:07 Pulse 78 01/27/25 07:07 Resp 20 01/27/25 03:32 BP 95/60 L 01/27/25 07:07 Pulse Ox 96 01/27/25 07:07 Labs 01/25/25 05:50 01/27/25 05:58 Labs: Laboratory Results - last 24 hr 01/26/25 01/27/25 06:35 05:58 Sodium 137 Potassium 3.6 Chloride 101 Carbon Dioxide 32.2 H Anion Gap 3.8 BUN 33 H Creatinine 1.1 H Est GFR (CKD-EPI 2020) 49.24 Glucose 141 H Calcium 8.3 L TSH 9.14 H Free T4 0.95
[2025-01-27] MEDS: Insulin Aspart 300 UNITS/3 ML PEN SC ×4 (08:41→21:01)
[2025-01-27] MEDS: Acetaminophen 325 MG TAB 650 MG PO (08:41)
[2025-01-27] MEDS: Apixaban 5 MG TAB PO (08:42)
[2025-01-27] MEDS: Spironolactone 25 MG TAB 12.5 MG PO (08:42)
[2025-01-27] MEDS: Furosemide 40 MG/4 ML VIAL IVP ×2 (08:42→15:56)
[2025-01-27] MEDS: Amiodarone 200 MG TAB PO (08:43)
[2025-01-27] MEDS: Empaglifozin 10 MG TAB PO (08:43)
[2025-01-27] MEDS: Normal Saline Flush 10 ML SYR IVP ×2 (08:43→20:30)
--- NOTE | 2025-01-27 09:03 | PDOC.CMPRO ---
Date of service: 01/27/25 Time of Service: 09:03 Care Management Progress Note Progress Note Text Progress Note Text: Sushma was lying in bed when CM met with her. She appeared pale and fatigued. Sushma shared that she just does not feel like she is getting any better. She now has generalized edema although her renal function has improved. CM again discussed the possibility of transferring to a SNF. Sushma is still considering options other than [facility], however at this point she is still too sick to be discharged. It is likely she will need to remain hospitalized over the weekend and the issue of SNF can be revisited early nex week. Discharge Potential Discharge Needs: PCP F/U Appt Anticipated Barriers to Discharge: None Identified Patient/Family Education Needs: Review discharge instructions, discuss Ask Me Three Transportation: Private vehicle Plan: Anticipate Sushma will be discharged home, with new home health services, when medically stable. She would benefit from rehab however she is unwilling to go anywhere except [facility] which is closed to admissions. She will follow up with her PCP and plan of care and transport with family. CM will follow and continue to support discharge planning efforts. Social Determinants of Health Screening Social Determinants of health last assessed in clinic: 01/27/25 Will the Patient Participate in the Screening?: Yes Do you worry about having a steady place to live?: no Problems where you live: pests such as bugs, ants or mice In the past 12 months, have you had to go without electric, gas, oil or water in your home?: no 1. Within the past 12 months, we worried whether our food would run out before we got money to buy more.: Never true 2. Within the past 12 months, the food we bought just didn't last and we didn't have money to get more.: Never true Has lack of transportation kept you from medical appointments or from doing things needed for daily living?: no Has anyone in your life made you feel unsafe or unsupported?: no How hard is it for you to pay for the very basics like food, housing, medical care, and heating? Would you say it is:: Not hard at all Do you want help finding or keeping work or a job?: I do not need or want help If for any reason you need help with day-to-day activities such as bathing, preparing meals, shopping, managing finances, etc., do you get the help you need?: I don?t need any help How often do you feel lonely or isolated from those around you?: Never Do you speak a language other than Palestinian at home?: No Comments: bedbugs Health Related Social Needs Health related social needs: inadequate housing (Z59.1) Health related social needs details: bed bugs
[2025-01-27] MEDS: predniSONE 20 MG TAB 40 MG PO (11:15)
[2025-01-27 11:35] VITALS: PULSE 67; RESP 16; TEMP 36.1; O2SAT 97
[2025-01-27 11:50] VITALS: BP 145/50
--- NOTE | 2025-01-27 12:13 | PTTR_ITS ---
PT Notes Visit Reasons: Acute Exacerbation of CHP Physical Therapy Inpatient Treatment Note Date: 01/27/2025 Precautions: Fall. Standard. Activity as tolerated. Subjective: Patient reports she is feeling very tired and weak again today. Objective: BLE edema Mental Status: Alert and oriented as to person, place, time, and purpose. Able to pay attention, focus, and respond appropriately. Pain: None reported Vital Signs: monitored by Nursing AM/PM Sessions Bed Mobility/Transfers: Minimal cueing provided for use of B hands as needed for support, movement sequence, AD management, and posture to reduce fall risk and minimize pain report supine to sit min A Sit to supine min assist for bilateral lower extremities Sit to stand contact guard assist with FWW Stand to sit stand by assist with FWW Bed to reclining chair contact guard assist with FWW Chair to bedside commode contact guard assist with FWW Gait:(am/pm) Facilitated safe and correct performance of level surface ambulation covering a distance of 20 feet x 2 using FWW with CGA Sandrine slowed. Directional change slowed. Minimal cueing provided for AD management only. NO LOB. Minimal SOB noted. Balance: Static Sitting: Normal Dynamic Sitting: Normal Static Standing: Fair Dynamic Standing: Fair Assessment: Pt continues to be limited by edema throughout BLE to pelvis and trunk. . Pt with SOB with expiratory wheezing noted and fatigue.Pt requiring increased assistance for bed mobility. Ecchymotic area noted to left lateral thigh, unkno wn etiology per pt. Plan of Care/Treatment Plan: 1-2x/day, 7 days/week x 1 week. --Plan to work on stair negotiation and seated/standing level strengthening as tolerated in the next sessions. DISCHARGE RECOMMENDATIONS: [] Home with no services [] [X] Home with services. VS Short term SNF. [] Home with outpatient PT [] [] SNF for continued rehabilitation [] [] Longterm Care [] [] SNF versus LTC based on ability to participate and progress [] TREATMENT CODE/TIME: first session: [id number]/ [id number] second session [id number]
--- NOTE | 2025-01-27 12:48 | PGE_ITS ---
Date of Service Date of service: 01/27/25 Time of Service: 12:48 Assessment and Plan Assessment and plan (1) Acute heart failure with reduced ejection fraction (HFrEF, <= 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: Status: Acute Assessment and plan: - History of HFrEF noted after [place] with prolonged hospitalization in August 2024, admitted here for same in September - Echocardiogram repeated, still low LVEF 25%, no change, IVC still plethoric. - Was responding to IV furosemide, but weight up on oral torsemide and edema worse - Resumed IV furosemide 01/27. BPs soft but she may be off starling curve, diruesis should help. Cardiology agrees she need more diuresis, appreciate input. - Continue empagliflozin but cut to HF dose. Spironolactone held 01/23, will r esumed 01/27 at low dose as should help duiresis, - weight going back down and fluid negative since changes 01/26 - Not on SHABANA agent, but BP too low to start now. - also palliative care consult given multiple recent admissions and poor QOL since prolonged admission this Winter/spring. (2) Acute kidney injury superimposed on CKD: Status: Acute Assessment and plan: - History of CKD, Cr 1.8 on admission -down to 1.3 as of AM 01/26, continue to monitor. (3) A-fib: Assessment and plan: - Currently rate controlled - Continue amiodarone. -Cardiology clarified she has mechanical mitral valve, back on warfarin today, monitor INRs (4) Hypothyroid: Status: Chronic Assessment and plan: TSH still high, related to amiodarone. With fatigue, increased levothyroxine to 50mcg from 37mcg (5) CAD (coronary artery disease): Assessment and plan: - History of CAD - No complaints of active chest pain - Continue home statin, anticoagulation (6) Type 2 diabetes mellitus: Assessment and plan: - Continue Jardiance, though with CKD I'm not sure it is doing much for her blood sugar. 10mg should be just as good for CV effect. - sugars high here, started low dose glargine in 01/25, increased slightly 01/26 to 12 units, Fasting 142, increase to 14 units. - Sliding scale insulin, heart healthy carb consistent diet (7) Elevated transaminase level: Status: Acute Assessment and plan: related to CHF. amiodarone also a risk, but much imrpoved on repeat suggesting this was CHF. Subjective Subjective Patient reports: voiding w/o difficulty; denies nausea, vomiting or fever Interval history since last seen: IV furosemide resumed 01/26 Cardiology consult this morning She still feels exhausted. She feels wheezy, feels like the inhaler/breathing treatment does help. Eating some, ate breakfast Exam Narrative Exam Narrative: Fatigued appearing older female laying in bed no acute distress, ANO x 4, heart irregular rate/rhythm, lungs with slight bibasilar crackles and diffuse wheeze, abdomen soft, nontender, nondistended. 2+bilateral lower extremity edema, no cyanosis. Objective Last Vital Signs Temp 36.1 C L 01/27/25 11:35 Pulse 67 01/27/25 11:35 Resp 16 01/27/25 11:35 BP 145/50 H 01/27/25 11:50 Pulse Ox 97 01/27/25 11:35 Laboratory Results - last 24 hr 01/27/25 05:58 Sodium 137 Potassium 3.6 Chloride 101 Carbon Dioxide 32.2 H Anion Gap 3.8 BUN 33 H Creatinine 1.1 H Est GFR (CKD-EPI 2020) 49.24 Glucose 141 H Calcium 8.3 L Time Spent with Patient Time Spent with Patient: 35-49 minutes Time was spent: preparing to see the patient(eg.review tests), obtaining and/or reviewing separately otained hiistory, ordering medications,tests, procedures, referring, communicating with other health health care facility administrator, indepentently interpreting results, counseling the patient and care coordination
[2025-01-27] MEDS: Warfarin 5 MG TAB PO (13:03)
--- NOTE | 2025-01-27 16:30 | CHAPLAIN ---
Sushma was in bed when I visited this morning. She said she'd be sitting up in the chair for breakfast, but didn't sleep well last night and wanted to be back in bed and hopefully resting today. She did look tired. She spoke to her son, who lives locally, on the phone last night and she also had a phone call with her daughter in [place]. Another son lives in [place]. Sushma seemed tired and discouraged today. I will continue to visit.
[2025-01-27 20:00] VITALS: BP 139/55; PULSE 80; TEMP 36.4
[2025-01-27] MEDS: Zolpidem 5 MG TAB PO (20:58)
[2025-01-27] MEDS: Atorvastatin 10 MG TAB PO (20:58)
[2025-01-27] MEDS: Insulin Glargine 300 UNITS/3 ML PEN 12 UNITS SC (21:03)
[2025-01-28] VITALS (7 sets, daily range): BP systolic 102–140; BP diastolic 50–70; PULSE 68–100; RESP 16–18; TEMP 36.1–36.9; O2SAT 94–97
[2025-01-28] MEDS: Albuterol/Ipratropium 3 ML UPD VIAL IH (03:08)
[2025-01-28] MEDS: Levothyroxine 50 MCG TAB PO (05:39)
[2025-01-28 06:40] LABS: INR 1.1 (0.9-1.1); Prothrombin Time 11.4 sec (9.1-11.1)
[2025-01-28 07:04] LABS: Anion Gap 7.8 mmol/L (3-11); BUN 33 mg/dL (7-18); CO2 30.2 mmol/L (21.0-32.0); Calcium 8.7 mg/dL (8.5-10.1); Chloride 99 mmol/L (98-107); Estimated GFR 44.36 (mL/min/1.73m2); Glucose 239 mg/dL (74-106); Potassium 3.4 mmol/L (3.5-5.1); Sodium 137 mmol/L (136-145)
[2025-01-28] MEDS: Furosemide 40 MG/4 ML VIAL IVP ×2 (08:03→15:11)
[2025-01-28] MEDS: Amiodarone 200 MG TAB PO (08:03)
[2025-01-28] MEDS: predniSONE 20 MG TAB 40 MG PO (08:03)
[2025-01-28] MEDS: Spironolactone 25 MG TAB 12.5 MG PO ×2 (08:03→10:14)
[2025-01-28] MEDS: Empaglifozin 10 MG TAB PO (08:03)
[2025-01-28] MEDS: Normal Saline Flush 10 ML SYR IVP (08:04)
[2025-01-28] MEDS: Insulin Aspart 300 UNITS/3 ML PEN SC ×5 (08:04→20:52)
[2025-01-28] MEDS: Budesonide/Formoterol 160/4.5 6 GM 60 PUFF INH IH ×2 (08:55→20:42)
--- NOTE | 2025-01-28 09:04 | W.PALLCONSUL ---
Date of service: 01/28/25 Time of Service: 09:13 History of Present Illness Narrative: Sushma was seen for Palliative consultation to discuss GOC and CODE STATUS. She was alone in her room at the time of the visit. She has previously completed HCA/AD. She has named her son, Art to be her HCA and has documentation on file. She also reports that her friend, Colin Caruso is staying with her for another month. Colin helps her around the house and with minimal care. Sushma reports that it has been hard at home. She feels she needs more assistance with ADLs. Colin has been helping her get dressed. She feels weak and fatigued. She is sleeping more and eating less. She thinks she has lost about 10# over the last year. It is difficult to estimate weight loss in the setting of HFrEF and fluctuating fluid status. She does not feel she has bounced back since her NSTEMI in July,. She has had 3 hospital admissions here in the last year and 7 ED visits in that time. She does not feel it would be safe for her to go home at this time. She does not think she has enough help. She is open to going to rehab but wants to stay in [facility]. [facility] is not currently taking admissions but this may change as soon as next week. Another option would be to utilize swing bed for a limited amount of time until her plan can be determined. GOC discussion: CODE STATUS discussed in the setting of HFrEF. She has made the decision to change her CODE status to DNR/DNI. COLST completed. She is clear she does not want a feeding tube, she is agreeable to IV fluids, determine use or limitation of Abx depending on situation. HCA: reviewed that she has previous documentation naming her son Art Jones to be her HCA and she would like to keep this in place. She also has a daughter, Flaca Josue who has her own health problems. At present, she is willing to work with PT to get stronger. She leans toward comfort focused care but is not yet ready to transition to comfort care/hospice. She is open to f/u with Palliative here or as an outpatient. Assessment and Plan Assessment and plan (1) Acute heart failure with reduced ejection fraction (HFrEF, <= 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: Status: Acute Assessment and plan: - History of HFrEF noted after [place] with prolonged hospitalization in August 2024, admitted here for same in September - Echocardiogram repeated, still low LVEF 25%, severe TR, no change, IVC still plethoric. (2) Acute kidney injury superimposed on CKD: Status: Acute Assessment and plan: - History of CKD, Cr 1.8 on admission -down to 1.2 as of AM 01/28, despite IV diuresis, continue to monitor. (3) A-fib: Assessment and plan: - Currently rate controlled - Continue amiodarone. - She has mechanical mitral valve, back on warfarin (4) Hypothyroid: Status: Chronic Assessment and plan: TSH still high, related to amiodarone. With fatigue, increased levothyroxine to 50mcg from 37mcg (5) CAD (coronary artery disease): Assessment and plan: - History of CAD - No complaints of active chest pain - Continue home statin, anticoagulation (6) Type 2 diabetes mellitus: (7) Elevated transaminase level: Status: Acute Assessment and plan: related to CHF. amiodarone also a risk, but much imrpoved on repeat suggesting this was CHF. (8) Wheezing: Status: Acute Assessment and plan: Prednisone initiated. (9) Palliative care patient: Status: Acute Assessment and plan: She established care with Palliative today. She is agreeable to f/u. F/u next Friday if she is still here. If she discharges, she would benefit from a visit in a couple of weeks to f/u on her plan. She may decide to transition to comfort care at some point, she is very tired, Palliative to offer support. (10) Advanced care planning/counseling discussion: Status: Acute Assessment and plan: Sushma made the decision to change her CODE status to DNR/DNI, COLST completed. Her son, Art Jones is her HCA. She does not feel it would be safe to return home. She is [facility] but they do not have beds available at this time. CM to f/u next week. She is currently open to PT/rehab. Continue plan to place for rehab vs SWB. She is very clear that she would not want to transfer to a tertiary care facility at any point. Palliative to f/u within the next 1-2 weeks depending on where she is. Review of Systems Narrative: per HPI PFSH All Active Problems (Updated 01/28/25 @ 12:00 by Miryam Da Silva NP) Advanced care planning/counseling discussion (Acute) Palliative care patient (Acute) Wheezing (Acute) H/O mitral valve replacement with mechanical valve (Acute) Elevated transaminase level (Acute) Anemia (Chronic) Acute kidney injury superimposed on CKD (Acute) Hypothyroid (Chronic) Acute heart failure with reduced ejection fraction (HFrEF, <= 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 (Acute) Cardiomyopathy (Acute) Atrial fibrillation with rapid ventricular response (Acute) Heart failure with reduced ejection fraction (Acute) Iron refractory iron deficiency anemia (Acute) Nonhealing nonsurgical wound with fat layer exposed (Acute) Wound of left lower extremity (Acute) Anticoagulated on Coumadin (Acute) Lesion of skin of nose (Acute) Conductive hearing loss in right ear (Acute 02/23/15) Mixed conductive and sensorineural hearing loss of right ear with restricted hearing of left ear (Acute 07/25/16) Sensorineural hearing loss (SNHL) of left ear with restricted hearing of right ear (Acute 07/25/16) Sensorineural hearing loss, bilateral (Acute 02/25/17) Medical History Aortic stenosis, moderate Severe tricuspid regurgitation Abscess Bunion Memory deficit Elevated TSH Type 2 diabetes mellitus Hypocalcemia CKD (chronic kidney disease) Facial skin lesion Hyperlipidemia Asthma CAD (coronary artery disease) A-fib HTN (hypertension) Diabetes mellitus Lactose intolerance Osteoporosis Diverticulitis Allergic rhinitis Hiatal hernia Mitral valve stenosis Insomnia Leg cramps Surgical History Status post excisional debridement (~02/2024) Left Leg Mitral valve replaced History of bladder suspension procedure History of tonsillectomy H/O adenoidectomy Family History Father , d. 60 Throat cancer Mother , d. 80 Heart disease Social History Smoking/Tobacco Use Status: Never Smoking risk assessment performed?: Yes Alcohol Intake: never Drug use: Never Substance use type: does not use Household members: none Housing: house Number of Children: 4 Do you feel safe at home: Yes Do you feel safe in your relationship?: Yes Additional Social history: . lives alone in home [address]. son lives nearby Exam Narrative Exam Narrative: General: very pleasant, elderly female, lying in hospital bed with HOB elevated. She is awake, alert, oriented. She appears fatigued. HEENT: normocephalic, atraumatic, EOMI, mm slightly dry Neck: supple Respiratory: respirations appear even and unlabored at rest. Ext: moves all 4 extremities freely, 1-2+ edema to BLEs. Results Last Vital Signs Temp 36.4 C L 01/28/25 07:15 Pulse 100 H 01/28/25 07:15 Resp 17 01/28/25 07:15 BP 105/65 01/28/25 07:15 Pulse Ox 95 01/28/25 07:15 Labs 01/25/25 05:50 01/28/25 06:20 Labs: Laboratory Results - last 24 hr 01/28/25 06:20 PT 11.4 H INR 1.1 Sodium 137 Potassium 3.4 L Chloride 99 Carbon Dioxide 30.2 Anion Gap 7.8 BUN 33 H Creatinine 1.2 H Est GFR (CKD-EPI 2020) 44.36 Glucose 239 H Calcium 8.7 Time Spent Time Spent with Patient Time Spent(min): 125
--- NOTE | 2025-01-28 09:06 | PDOC.CMPRO ---
Date of service: 01/28/25 Time of Service: 09:06 Care Management Progress Note Progress Note Text Progress Note Text: Sushma was sitting up in bed when CM met with her. Once again she stated she was tired because she did not sleep well last night. She informed CM that she had taken a sleeping pill but it didn't work. Sushma continues to work with PT but is limited by fatigue and weakness. She will benefit from short term rehab but as her only choice, . [facility] , is closed to admissions, she may transition to -1 for a short time. Sushma is in agreement with this plan. Discharge Potential Discharge Needs: PCP F/U Appt Anticipated Barriers to Discharge: Medical Status Patient/Family Education Needs: Review discharge instructions, discuss Ask Me Three Transportation: Private vehicle Plan: Anticipate Sushma will be discharged home, with new home health services, when medically stable. She would benefit from rehab however she is unwilling to go anywhere except [facility] which is closed to admissions. She will follow up with her PCP and plan of care and transport with family. CM will follow and continue to support discharge planning efforts. Social Determinants of Health Screening Social Determinants of health last assessed in clinic: 01/28/25 Will the Patient Participate in the Screening?: Yes Do you worry about having a steady place to live?: no Problems where you live: pests such as bugs, ants or mice In the past 12 months, have you had to go without electric, gas, oil or water in your home?: no 1. Within the past 12 months, we worried whether our food would run out before we got money to buy more.: Never true 2. Within the past 12 months, the food we bought just didn't last and we didn't have money to get more.: Never true Has lack of transportation kept you from medical appointments or from doing things needed for daily living?: no Has anyone in your life made you feel unsafe or unsupported?: no How hard is it for you to pay for the very basics like food, housing, medical care, and heating? Would you say it is:: Not hard at all Do you want help finding or keeping work or a job?: I do not need or want help If for any reason you need help with day-to-day activities such as bathing, preparing meals, shopping, managing finances, etc., do you get the help you need?: I don?t need any help How often do you feel lonely or isolated from those around you?: Never Do you speak a language other than Pashto at home?: No Comments: bedbugs Health Related Social Needs Health related social needs: inadequate housing (Z59.1) Health related social needs details: bed bugs
--- NOTE | 2025-01-28 09:32 | W.PM.PROGNOT ---
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 - Was responding to IV furosemide, but weight up on oral torsemide and edema worse - Resumed IV furosemide 01/27. BPs soft but seem to be imrpoving with diruesis. - Cardiology consult 01/27 agrees she need more diuresis, appreciate input. - Continue empagliflozin but cut to HF dose. Spironolactone held 01/23, will resumed 01/27 at low dose as should help duiresis, increase back to 25mg 01/28. - consider adding low dose metoprolol succinate - weight going back down and fluid negative since changes 01/26 - Not on SHABANA agent, but BP too low to start now. - also palliative care consult given multiple recent admissions and poor QOL since prolonged admission this Winter/spring, discussed with Miryam. (2) Acute kidney injury superimposed on CKD: Status: Acute Assessment and plan: - History of CKD, Cr 1.8 on admission -down to 1.2 as of AM 01/28, despite IV diuresis, continue to monitor. (3) A-fib: Assessment and plan: - Currently rate controlled - Continue amiodarone. - She has mechanical mitral valve, back on warfarin, monitor INRs (4) Hypothyroid: Status: Chronic Assessment and plan: TSH still high, related to amiodarone. With fatigue, increased levothyroxine to 50mcg from 37mcg (5) CAD (coronary artery disease): Assessment and plan: - History of CAD - No complaints of active chest pain - Continue home statin, anticoagulation (6) Type 2 diabetes mellitus: Assessment and plan: - Continue Jardiance, though with CKD I'm not sure it is doing much for her blood sugar. 10mg should be just as good for CV effect. - sugars high here, started low dose glargine in 01/25, increased slightly 01/26 to 12 units. Sugars still high, on prednisone, increase to 15 units. - Sliding scale insulin, heart healthy carb consistent diet (7) Elevated transaminase level: Status: Acute Assessment and plan: related to CHF. amiodarone also a risk, but much imrpoved on repeat suggesting this was CHF. (8) Wheezing: Status: Acute Assessment and plan: No clear diagnosis of Asthma/COPD, but she reports asthma and has been treated with ICS/LABA. Imaging showed some airway bronchiectasis. She does seem to have responded to prednisone so continue this for 5 days. Subjective Subjective Patient reports: no new complaints, tolerating a regular diet and voiding w/o difficulty; denies diarrhea, vomiting or fever Interval history since last seen: Events: started on prednisone for wheezing/asthma She still feels weak, but starting to eat more, move a little more in the room. She didn't sleep well last night. No chest pain. SOB a little better. Exam Narrative Exam Narrative: Slighty brighter appearing older female laying in bed no acute distress, ANO x 4, heart irregular rate/rhythm, lungs with bibasilar crackles but no wheeze and good air movement, abdomen soft, nontender, nondistended. 1-2+bilateral lower extremity edema, no cyanosis. Objective Last Vital Signs Temp 36.4 C L 01/28/25 07:15 Pulse 100 H 01/28/25 07:15 Resp 17 01/28/25 07:15 BP 105/65 01/28/25 07:15 Pulse Ox 95 01/28/25 07:15 Laboratory Results - last 24 hr 01/28/25 06:20 PT 11.4 H INR 1.1 Sodium 137 Potassium 3.4 L Chloride 99 Carbon Dioxide 30.2 Anion Gap 7.8 BUN 33 H Creatinine 1.2 H Est GFR (CKD-EPI 2020) 44.36 Glucose 239 H Calcium 8.7 Time Spent with Patient Time Spent with Patient: 35-49 minutes Time was spent: preparing to see the patient(eg.review tests), obtaining and/or reviewing separately otained hiistory, ordering medications,tests, procedures, referring, communicating with other health district manager primary care sales, indepentently interpreting results, counseling the patient and care coordination
[2025-01-28] MEDS: Potassium Chloride 20 MEQ TABCR PO (10:14)
--- NOTE | 2025-01-28 12:09 | PTTR_ITS ---
PT Notes Visit Reasons: Acute Exacerbation of CHP Physical Therapy Inpatient Treatment Note Date: 01/28/2025 Precautions: Fall. Standard. Activity as tolerated. Subjective: Patient continues to report feeling weak and tired. She states she does not feel as wheezy today.. Objective: BLE edema to pelvis slightly less Mental Status: Alert and oriented as to person, place, time, and purpose. Able to pay attention, focus, and respond appropriately. Pain: None reported Vital Signs: monitored by Nursing Bed Mobility/Transfers: Minimal cueing provided for use of B hands as needed for support, movement sequence, AD management, and posture to reduce fall risk and minimize pain report supine to sit min A Sit to supine min assist for bilateral lower extremities ( not performed this date) Sit to stand contact guard assist with FWW Stand to sit stand by assist with FWW Bed to commode contact guard assist with FWW commode to chair contact guard assist with FWW Gait: Facilitated safe and correct performance of level surface ambulation covering a distance of 20 feet x 2 using FWW with CGA Sandrine slowed. Directional change slowed. Minimal cueing provided for AD management only. NO LOB. Minimal SOB noted. Balance: Static Sitting: Normal Dynamic Sitting: Normal Static Standing: Fair Dynamic Standing: Fair Assessment: Pt continues to be limited by edema throughout BLE to pelvis, fatigue and impaired functional activity tolerance. Pt requiring increased assistance for bed mobility. Ecchymotic area noted to left lateral thigh remains. Next session attempt introduction of BLE exercises Plan of Care/Treatment Plan: 1-2x/day, 7 days/week x 1 week. --Plan to work on stair negotiation as able and seated/standing level strengthening as tolerated in the next sessions. DISCHARGE RECOMMENDATIONS: [] Home with no services [] [X] Home with services. VS Short term SNF. [] Home with outpatient PT [] [] SNF for continued rehabilitation [] [] Detention Care [] [] SNF versus LTC based on ability to participate and progress [] TREATMENT CODE/TIME: first session: 39967/ [id number]
--- NOTE | 2025-01-28 13:54 | TELEFU_ITS ---
Date of service: 01/28/25 Time of Service: 13:55 Nutrition Note NOTE: follow up chart review - pt's glucose getting significantly elevated. Given IV steroid yesterday and ordered for 40mg daily now. Pt intake not very consistent day to day and meal to meal this admission. Would recommend one of the following insulin adjustments: increase basal insulin dose HS to 20units and titrate q days based off fasting glucose trends as well as move to resistant sliding scale for corrections to h elp offset insulin resistance associated with prednisone. Carborhydrate coverage could also be added to mealtime correction bolus at 1 unit per 20g carbs for better control. Alternatively could consider NPH insulin at a starting TDD of 33 units and give 2/3 before breakfast and 11 units before dinner. Time Spent in Nutritional Counseling and Treatment: 5 min
[2025-01-28] MEDS: Zolpidem 5 MG TAB PO (20:49)
[2025-01-28] MEDS: Warfarin 5 MG TAB 7.5 MG PO (20:49)
[2025-01-28] MEDS: Atorvastatin 10 MG TAB PO (20:50)
[2025-01-28] MEDS: Insulin Glargine 300 UNITS/3 ML PEN 18 UNITS SC (20:53)
[2025-01-29] VITALS (8 sets, daily range): BP systolic 90–111; BP diastolic 50–85; PULSE 62–111; RESP 15–24; TEMP 36.1–36.8; O2SAT 90–98
[2025-01-29] MEDS: Albuterol/Ipratropium 3 ML UPD VIAL IH ×2 (04:16→23:45)
[2025-01-29] MEDS: Levothyroxine 50 MCG TAB PO (04:58)
[2025-01-29] MEDS: Furosemide 40 MG/4 ML VIAL IVP ×2 (06:14→11:14)
[2025-01-29 06:36] LABS: INR 1.3 (0.9-1.1); Prothrombin Time 12.6 sec (9.1-11.1)
[2025-01-29 06:51] LABS: Anion Gap 7.0 mmol/L (3-11); BUN 39 mg/dL (7-18); CO2 31.0 mmol/L (21.0-32.0); Calcium 9.1 mg/dL (8.5-10.1); Chloride 98 mmol/L (98-107); Estimated GFR 49.24 (mL/min/1.73m2); Glucose 296 mg/dL (74-106); Potassium 4.4 mmol/L (3.5-5.1); Sodium 136 mmol/L (136-145)
[2025-01-29] MEDS: Empaglifozin 10 MG TAB PO (08:08)
[2025-01-29] MEDS: predniSONE 20 MG TAB 40 MG PO (08:08)
[2025-01-29] MEDS: Insulin Aspart 300 UNITS/3 ML PEN SC ×7 (08:08→21:00)
[2025-01-29] MEDS: Amiodarone 200 MG TAB PO (08:09)
[2025-01-29] MEDS: Spironolactone 25 MG TAB PO (08:09)
[2025-01-29] MEDS: Normal Saline Flush 10 ML SYR IVP ×2 (08:09→20:59)
[2025-01-29] MEDS: Fluticasone NASAL SPRAY 16 GM BTL NS (08:10)
[2025-01-29] MEDS: Budesonide/Formoterol 160/4.5 6 GM 60 PUFF INH IH ×2 (08:11→21:05)
[2025-01-29 11:20] LABS: Magnesium 2.6 mg/dL (1.8-2.4)
--- NOTE | 2025-01-29 11:24 | PT.INTREAT ---
PT Notes Visit Reasons: Acute Exacerbation of CHP Physical Therapy Inpatient Treatment Note Date: 01/29/2025 Precautions: Fall. Standard. Activity as tolerated. Subjective: Agreeable to getting out of chair. Reported weakness but wanted to know how much she can do today. Appreciated the robe that was placed on her as she has been cold. Amenable to doing s short SNF stay to allow for slow and gradual mobility progression. Objective: B LE edema but with no open areas seen. Depression on L proximal lateral tibia noted (chronic area). Telemetry monitoring in place. Dark discoloration in legs. Mental Status: Alert and oriented as to person, place, time, and purpose. Able to pay attention, focus, and respond appropriately. Pain: None reported Vital Signs: Closely monitored via tele Bed Mobility/Transfers: Minimal cueing provided for use of B hands as needed for support, movement sequence, AD management, and posture to reduce fall risk and minimize pain report Sit to stand contact guard assist with FWW Stand to sit stand by assist with FWW Bed to commode contact guard assist with FWW Sit to supine minimal assist to B LE due to increased heaviness from B LE swelling Gait: Facilitated safe and correct performance of level surface ambulation covering a distance of 20 feet + 15 feet + 40 feet using FWW with CGA and wheelchair follow. Sandrine slowed. Directional change slowed. Minimal cueing provided for AD management only. NO LOB. Minimal SOB noted. Patient verbalized that this is so far the most she has done since coming in and is happy about it. Balance: Static Sitting: Normal Dynamic Sitting: Normal Static Standing: Fair Dynamic Standing: Fair Assessment: Improved activity tolerance as evidenced by improved distance covered on level surface. Onset of fatigue after activity subsided with seated rest. SOB resolved with rest. Rj is on palliative care and has mechanical valave in situ. EF is 20% so frequent rests is very much necessary in between activities. Patient is currently on Prednisone for airway bronchiectasis seen on radiographs. Plan of Care/Treatment Plan: 1-2x/day, 7 days/week x 1 week. Continue working on slow progression of strength, balance, and functional mobility while providing adequate rests while appropriately monitoring symptoms and vital signs. DISCHARGE RECOMMENDATIONS: Short-term SNF vs PT based on ability nad availability of caregivers. TREATMENT CODE/TIME: 32125 x 32 minutes (11:24-11:56).
--- NOTE | 2025-01-29 11:59 | PGE_ITS ---
Date of Service Date of service: 01/29/25 Time of Service: 11:59 Assessment and Plan Assessment and plan (1) Acute heart failure with reduced ejection fraction (HFrEF, <= 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: Status: Acute Assessment and plan: - History of HFrEF noted after [place] with prolonged hospitalization in August 2024, admitted here for same in September - Echocardiogram repeated, still low LVEF 25%, severe TR, no change, IVC still plethoric. - Was responding to IV furosemide, but weight up on oral torsemide and edema worse - Resumed IV furosemide 01/27. BPs soft but seemed to be imrpoving with diruesis. - Cardiology consult 01/27 agrees she need more diuresis, appreciate input. - Continue empagliflozin but cut to HF dose. Spironolactone held 01/23, will resumed 01/27 at low dose as should help duiresis, increased back to 25mg 01/28. - weight going back down and fluid negative since changes 01/26, but up 01/29 with more edema desite IV furosemide, will increase dose to 80mg BID - Not on SHABANA agent, but BP too low to start now. We could also consider adding low dose metoprolol succinate, which may have less BP effects. - also palliative care consult given multiple recent admissions and poor QOL since prolonged admission this Winter/spring, made DNR/DNI (2) Acute kidney injury superimposed on CKD: Status: Acute Assessment and plan: - History of CKD, Cr 1.8 on admission -down to 1.1 as of AM 01/29, despite IV diuresis, continue to monitor on higher dose. (3) A-fib: Assessment and plan: - Currently rate controlled - Continue amiodarone. - She has mechanical mitral valve, back on warfarin, monitor INRs, now trending up, continue 7.5mg, consider adjusting daily (4) Hypothyroid: Status: Chronic Assessment and plan: TSH still high, related to amiodarone. With fatigue, increased levothyroxine to 50mcg from 37mcg. Repeat TSH will be due early March. (5) CAD (coronary artery disease): Assessment and plan: - History of CAD - No complaints of active chest pain - Continue home statin, anticoagulation (6) Type 2 diabetes mellitus: Assessment and plan: - Continue Jardiance, though with CKD I'm not sure it is doing much for her blood sugar. 10mg should be just as good for CV effect. - sugars high here, started low dose glargine in 01/25, increased slightly 01/26 to 12 units, then 18 with prednisone. Sugars still high, on prednisone. Stopping this after today, so we may need to back down again on insulin. - Sliding scale insulin, heart healthy carb consistent diet (7) Elevated transaminase level: Status: Acute Assessment and plan: related to CHF. amiodarone also a risk, but much imrpoved on repeat suggesting this was CHF. (8) Wheezing: Status: Acute Assessment and plan: No clear diagnosis of Asthma/COPD, but she reports asthma and has been treated with ICS/LABA. Imaging showed some airway bronchiectasis. She did seem to have responded to prednisone, but now wheeze returned a/w more fluid, so I don't think this is asthma/COPD. Stop the prednisone. Can still use bronchodilators prn. Subjective Subjective Patient reports: tolerating a regular diet and voiding w/o difficulty; denies diarrhea, vomiting or fever Interval history since last seen: Feels more wheezey today, more swollen. She is still eating. Still tired, but up walking in room. No change to diet. Exam Narrative Exam Narrative: Older female laying in bed no acute distress, ANO x 4, heart irregular rate/rhythm, lungs with bibasilar crackles, wheezey again today, good air movement, abdomen soft, nontender, nondistended. 2+bilateral lower extremity edema, no cyanosis. Objective Last Vital Signs Temp 36.1 C L 01/29/25 08:04 Pulse 111 H 01/29/25 08:04 Resp 19 01/29/25 08:04 BP 90/60 L 01/29/25 08:04 Pulse Ox 96 01/29/25 08:04 Laboratory Results - last 24 hr 01/29/25 05:48 PT 12.6 H INR 1.3 H Sodium 136 Potassium 4.4 D Chloride 98 Carbon Dioxide 31.0 Anion Gap 7.0 BUN 39 H Creatinine 1.1 H Est GFR (CKD-EPI 2020) 49.24 Glucose 296 H Calcium 9.1 Magnesium 2.6 H Time Spent with Patient Time Spent with Patient: 35-49 minutes Time was spent: preparing to see the patient(eg.review tests), obtaining and/or reviewing separately otained hiistory, ordering medications,tests, procedures, referring, communicating with other health associate director career services, indepentently interpreting results, counseling the patient and care coordination
[2025-01-29] MEDS: Furosemide 40 MG/4 ML VIAL 80 MG IVP (15:39)
[2025-01-29] MEDS: Zolpidem 5 MG TAB PO (20:58)
[2025-01-29] MEDS: Warfarin 5 MG TAB 7.5 MG PO (20:58)
[2025-01-29] MEDS: Insulin Glargine 300 UNITS/3 ML PEN 18 UNITS SC (20:59)
[2025-01-29] MEDS: Atorvastatin 10 MG TAB PO (20:59)
[2025-01-30] VITALS (8 sets, daily range): BP systolic 100–161; BP diastolic 62–111; PULSE 63–121; RESP 16–22; TEMP 36–36.6; O2SAT 97–99
[2025-01-30] MEDS: Albuterol/Ipratropium 3 ML UPD VIAL IH (01:23)
[2025-01-30] MEDS: Levothyroxine 50 MCG TAB PO (06:26)
[2025-01-30 07:22] LABS: INR 1.7 (0.9-1.1); Prothrombin Time 16.2 sec (9.1-11.1)
[2025-01-30 07:30] LABS: Magnesium 2.5 mg/dL (1.8-2.4)
[2025-01-30 07:51] LABS: Anion Gap 9.6 mmol/L (3-11); BUN 41 mg/dL (7-18); CO2 29.4 mmol/L (21.0-32.0); Calcium 8.4 mg/dL (8.5-10.1); Chloride 96 mmol/L (98-107); Estimated GFR 49.24 (mL/min/1.73m2); Glucose 188 mg/dL (74-106); Potassium 3.8 mmol/L (3.5-5.1); Sodium 135 mmol/L (136-145)
[2025-01-30] MEDS: Spironolactone 25 MG TAB PO (08:04)
[2025-01-30] MEDS: Amiodarone 200 MG TAB PO (08:04)
[2025-01-30] MEDS: Empaglifozin 10 MG TAB PO (08:04)
[2025-01-30] MEDS: Furosemide 40 MG/4 ML VIAL 80 MG IVP ×2 (08:05→16:31)
[2025-01-30] MEDS: Insulin Aspart 300 UNITS/3 ML PEN SC ×5 (08:06→23:15)
[2025-01-30] MEDS: Normal Saline Flush 10 ML SYR IVP ×2 (08:07→20:44)
[2025-01-30] MEDS: Budesonide/Formoterol 160/4.5 6 GM 60 PUFF INH IH ×2 (08:15→19:57)
--- NOTE | 2025-01-30 12:27 | PGE_ITS ---
Date of Service Date of service: 01/30/25 Time of Service: 12:27 Assessment and Plan Assessment and plan (1) Acute heart failure with reduced ejection fraction (HFrEF, <= 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: Status: Acute Assessment and plan: - History of HFrEF noted after [place] with prolonged hospitalization in August 2024, admitted here for same in September - Echocardiogram repeated, still low LVEF 25%, severe TR, no change, IVC still plethoric. - Was responding to IV furosemide, but weight up on oral torsemide and edema worse - Resumed IV furosemide 01/27. BPs soft but seemed to be imrpoving with diruesis. - Cardiology consult 01/27 agrees she need more diuresis, appreciate input. - Continue empagliflozin but cut to HF dose. Spironolactone held 01/23, will resumed 01/27 at low dose as should help duiresis, increased back to 25mg 01/28. - weight going back down and fluid negative since changes 01/26, but up 01/29 with more edema desite IV furosemide, will increase dose to 80mg BID - Not on SHABANA agent, but BP too low to start now. We could also consider adding low dose metoprolol succinate, which may have less BP effects. - also palliative care consult given multiple recent admissions and poor QOL since prolonged admission this Winter/spring, made DNR/DNI 01/30/25 I/O shows net loss of 150ml over last 24 hours Weight 70.94->66.8 kg. C/w lasix 80 bid/aldactone 25mg daily/jardiance. Pt would benefit from Entresto? Will check iron levels as well as low iron can make symptoms of chf worse. Will add bb when bp improves (2) Acute kidney injury superimposed on CKD: Status: Acute Assessment and plan: - History of CKD, Cr 1.8 on admission -down to 1.1 as of AM 01/29, despite IV diuresis, continue to monitor on higher dose. (3) A-fib: Assessment and plan: - Currently rate controlled - Continue amiodarone. - She has mechanical mitral valve, back on warfarin, monitor INRs, now trending up, continue 7.5mg, consider adjusting daily . 01.30.25 pt is actually on amiodarone class III antiarrhythmic. HR is 104. Consider BB (4) Hypothyroid: Status: Chronic Assessment and plan: TSH still high, related to amiodarone. With fatigue, increased levothyroxine to 50mcg from 37mcg. Repeat TSH will be due early March. (5) CAD (coronary artery disease): Assessment and plan: - History of CAD - No complaints of active chest pain - Continue home statin, anticoagulation (6) Type 2 diabetes mellitus: Assessment and plan: - Continue Jardiance, though with CKD I'm not sure it is doing much for her blood sugar. 10mg should be just as good for CV effect. - sugars high here, started low dose glargine in 01/25, increased slightly 01/26 to 12 units, then 18 with prednisone. Sugars still high, on prednisone. Stopping this after today, so we may need to back down again on insulin. - Sliding scale insulin, heart healthy carb consistent diet (7) Elevated transaminase level: Status: Acute Assessment and plan: related to CHF. amiodarone also a risk, but much imrpoved on repeat suggesting this was CHF. (8) Wheezing: Status: Acute Assessment and plan: No clear diagnosis of Asthma/COPD, but she reports asthma and has been treated with ICS/LABA. Imaging showed some airway bronchiectasis. She did seem to have responded to prednisone, but now wheeze returned a/w more fluid, so I don't think this is asthma/COPD. Stop the prednisone. Can still use bronchodilators prn. (9) Mitral valve stenosis: Assessment and plan: Pt does have a history of mechanical mitral valve and therefore will need lifetime anticoagulation. Depending on the valve type and other factors the INR goal is 3 to 3.5. Eliquis has been held and the pt is on warfarin but is not at goal. Pt will be bridged with lovenox in the interim 1mg/kg sq bid. Subjective Subjective Interval history since last seen: Pt seen and examined in her room this am. Pt states that she does feel better but continues to have SOB with exertion. Exam Narrative Exam Narrative: HEENT-NCAT MMM EOMI PERRLA NECK-NO LAD NO JVD CV-IR/IR 3/6 ZHANE PULM-BILAT WHEEZE NO AMU SPEAKS IN COMPLETE SENTENCES ABD-[id number] EXT-2PLUS KANWAL BILAT TO MID CALVES Objective Last Vital Signs Temp 36.4 C L 01/30/25 11:08 Pulse 104 H 01/30/25 11:08 Resp 18 01/30/25 11:08 BP 128/82 01/30/25 11:08 Pulse Ox 99 01/30/25 11:08 Laboratory Results - last 24 hr 01/30/25 06:58 PT 16.2 H INR 1.7 H Sodium 135 L Potassium 3.8 Chloride 96 L Carbon Dioxide 29.4 Anion Gap 9.6 BUN 41 H Creatinine 1.1 H Est GFR (CKD-EPI 2020) 49.24 Glucose 188 H Calcium 8.4 L Magnesium 2.5 H Time Spent with Patient Time Spent with Patient: 35-49 minutes Time was spent: preparing to see the patient(eg.review tests), obtaining and/or reviewing separately otained hiistory, ordering medications,tests, procedures, referring, communicating with other health healthcare analyst, indepentently interpreting results, counseling the patient and care coordination
[2025-01-30] MEDS: Enoxaparin 60 MG/0.6 ML SYR SC (13:11)
--- NOTE | 2025-01-30 14:39 | PTTR_ITS ---
PT Notes Visit Reasons: Acute Exacerbation of CHP Physical Therapy Inpatient Treatment Note Date: 01/30/2025 Precautions: Fall. Standard. Activity as tolerated. EF of 20% per most recent echo, needs frequent rests. Subjective: Already walked with CHAN Gomez after lunch but patient was again willing to work with PT for another OOB activity. Enjoyed lunch. Expressed disappointment about this admission being the second time that her friend has visited from [place]. Complained of her knees acting up and limiting her distance. Objective: L LE edema less than the R today but, still no open areas seen. Depression on L proximal lateral tibia noted (chronic area). Telemetry monitoring in place. Dark discoloration in legs. Mental Status: Alert and oriented as to person, place, time, and purpose. Able to pay attention, focus, and respond appropriately. Pain: None reported Vital Signs: Closely monitored via tele Bed Mobility/Transfers: Minimal cueing provided for use of B hands as needed for support, movement sequence, AD management, and posture to reduce fall risk and minimize pain report Sit to stand stand by assist with FWW Stand to sit stand by assist with FWW Sit to supine minimal assist to B LE due to increased heaviness from B LE swelling Gait: Facilitated safe and correct performance of level surface ambulation covering a distance of about 60 feet + 60 feet using FWW with CGA and wheelchair follow. Sandrine slowed. Directional change slowed. Minimal cueing provided for AD management only. NO LOB. Minimal SOB noted. Patient happy about increased mileage today with less SOB. Balance: Static Sitting: Normal Dynamic Sitting: Normal Static Standing: Fair Dynamic Standing: Fair Assessment: Continued improvement in activity tolerance and level of indendence as evidenced by improved distance covered on level surface. Onset of fatigue after activity subsided with seated rest. SOB resolved with rest. Rj is on palliative care and has mechanical mitral valve in situ. EF is 20%, frequent rests is very much necessary in between activities. Plan of Care/Treatment Plan: 1-2x/day, 7 days/week x 1 week. Continue working on slow progression of strength, balance, and functional mobility while providing adequate rests while appropriately monitoring symptoms and vital signs. DISCHARGE RECOMMENDATIONS: Short-term SNF vs HH PT based on ability nad availability of caregivers. TREATMENT CODE/TIME: 53212 x 25 minutes (14:39-15:04).
[2025-01-30 17:13] LABS: INR 2.0 (0.9-1.1); Prothrombin Time 19.0 sec (9.1-11.1)
[2025-01-30] MEDS: Atorvastatin 10 MG TAB PO (20:43)
[2025-01-30] MEDS: Insulin Glargine 300 UNITS/3 ML PEN 18 UNITS SC (20:45)
[2025-01-30] MEDS: Zolpidem 5 MG TAB PO (23:14)
[2025-01-30] MEDS: Warfarin 5 MG TAB 7.5 MG PO (23:14)
[2025-01-31] VITALS (9 sets, daily range): BP systolic 84–101; BP diastolic 47–62; PULSE 55–113; RESP 15–24; TEMP 35.9–37; O2SAT 95–99
[2025-01-31] MEDS: Enoxaparin 60 MG/0.6 ML SYR SC ×2 (01:43→13:22)
[2025-01-31] MEDS: Levothyroxine 50 MCG TAB PO (06:15)
[2025-01-31 06:49] LABS: Abs Immature Grans 0.08 10^3/uL (0.0-0.06); HCT 37.3 % (36.0-46.0); HGB 11.6 g/dL (11.2-15.7); Immature Grans % 0.7 %; MCH 26.9 pg (27.0-33.0); MCHC 31.1 % (32.0-36.0); MCV 87 fL (80-95); MPV 9.8 fL (8.0-11.0); Platelet Count 272 10^3/uL (130-400); RBC 4.31 10^6/uL (3.93-5.22); RDW 15.9 % (11.7-14.6); RDW-SD 50.2 fL; WBC 10.99 10^3/uL (4.4-10.8)
[2025-01-31 07:07] LABS: INR 2.6 (0.9-1.1); Prothrombin Time 24.5 sec (9.1-11.1)
[2025-01-31 07:08] LABS: ALT 31 U/L (14-59); AST 22 U/L (15-37); Albumin 2.9 g/dL (3.4-5.0); Alkaline Phosphatase 143 U/L (46-116); Anion Gap 6.2 mmol/L (3-11); BUN 42 mg/dL (7-18); Bilirubin, Total 1.2 mg/dL (0.2-1.0); CO2 32.8 mmol/L (21.0-32.0); Calcium 8.2 mg/dL (8.5-10.1); Chloride 100 mmol/L (98-107); Estimated GFR 55.21 (mL/min/1.73m2); Glucose 71 mg/dL (74-106); Potassium 3.5 mmol/L (3.5-5.1); Sodium 139 mmol/L (136-145); Total Protein 5.8 g/dL (6.4-8.2)
[2025-01-31] MEDS: Budesonide/Formoterol 160/4.5 6 GM 60 PUFF INH IH ×2 (07:29→21:40)
[2025-01-31 07:38] LABS: Iron 28 ug/dL (50-170); Total Iron Binding Capacity 384 ug/dL (250-450); Transferrin Sat 7 % (15-50)
[2025-01-31] MEDS: Insulin Aspart 300 UNITS/3 ML PEN SC ×4 (08:28→23:23)
[2025-01-31] MEDS: Amiodarone 200 MG TAB PO (08:59)
[2025-01-31] MEDS: Normal Saline Flush 10 ML SYR IVP ×3 (08:59→23:24)
[2025-01-31] MEDS: Empaglifozin 10 MG TAB PO (08:59)
[2025-01-31] MEDS: IRON SUCROSE COMPLEX 200 MG in Normal Saline 100 ML 400 MG IVPB (11:18)
--- NOTE | 2025-01-31 13:16 | W.PM.PROGNOT ---
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 - Was responding to IV furosemide, but weight up on oral torsemide and edema worse - Resumed IV furosemide 01/27. BPs soft but seemed to be imrpoving with diruesis. - Cardiology consult 01/27 agrees she need more diuresis, appreciate input. - Continue empagliflozin but cut to HF dose. Spironolactone held 01/23, will resumed 01/27 at low dose as should help duiresis, increased back to 25mg 01/28. - weight going back down and fluid negative since changes 01/26, but up 01/29 with more edema desite IV furosemide, will increase dose to 80mg BID - Not on SHABANA agent, but BP too low to start now. We could also consider adding low dose metoprolol succinate, which may have less BP effects. - also palliative care consult given multiple recent admissions and poor QOL since prolonged admission this Winter/spring, made DNR/DNI 01/30/25 I/O shows net loss of 150ml over last 24 hours Weight 70.94->66.8 kg. C/w lasix 80 bid/aldactone 25mg daily/jardiance. Pt would benefit from Entresto? Will check iron levels as well as low iron can make symptoms of chf worse. 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 01/31/25 resolved (3) A-fib: Assessment and plan: - Currently rate controlled - Continue amiodarone. - She has mechanical mitral valve, back on warfarin, monitor INRs, now trending up, continue 7.5mg, consider adjusting daily . 8.. pt is actually on amiodarone class III antiarrhythmic. HR is 104. Consider BB (4) Hypothyroid: Status: Chronic Assessment and plan: TSH still high, related to amiodarone. With fatigue, increased levothyroxine to 50mcg from 37mcg. Repeat TSH will be due early March. (5) CAD (coronary artery disease): Assessment and plan: - History of CAD - No complaints of active chest pain - Continue home statin, anticoagulation (6) Type 2 diabetes mellitus: Assessment and plan: - Continue Jardiance, though with CKD I'm not sure it is doing much for her blood sugar. 10mg should be just as good for CV effect. - sugars high here, started low dose glargine in 01/25, increased slightly 01/26 to 12 units, then 18 with prednisone. Sugars still high, on prednisone. Stopping this after today, so we may need to back down again on insulin. - Sliding scale insulin, heart healthy carb consistent diet (7) Elevated transaminase level: Status: Acute Assessment and plan: related to CHF. amiodarone also a risk, but much imrpoved on repeat suggesting this was CHF. (8) Wheezing: Status: Acute Assessment and plan: No clear diagnosis of Asthma/COPD, but she reports asthma and has been treated with ICS/LABA. Imaging showed some airway bronchiectasis. She did seem to have responded to prednisone, but now wheeze returned a/w more fluid, so I don't think this is asthma/COPD. Stop the prednisone. Can still use bronchodilators prn. (9) Mitral valve stenosis: Assessment and plan: Pt does have a history of mechanical mitral valve and therefore will need lifetime anticoagulation. Depending on the valve type and other factors the INR goal is 3 to 3.5. Eliquis has been held and the pt is on warfarin but is not at goal. Pt will be bridged with lovenox in the interim 1mg/kg sq bid. 01/31/25 Latest INR shows a value of 2.6 which is below goal. Will c/w coumadin at 7.5 today and deescelate tomorrow if INR continues to increase. Would appear that pt INR goal is unknown at this point. Will review chart to see if any info about type of valve can be found Subjective Subjective Interval history since last seen: Pt seen and examined in her room. Did complain of insomnia last pm. SOB has improved Exam Narrative Exam Narrative: HEENT-NCAT MMM EOMI PERRLA NECK-NO LAD NO JVD CV-IR/IR 3/6 ZHANE PULM-BILAT WHEEZE NO AMU SPEAKS IN COMPLETE SENTENCES ABD-SNTNDBSA EXT-2PLUS KANWAL BILAT TO MID CALVES Objective Last Vital Signs Temp 36.1 C L 01/31/25 10:57 Pulse 97 H 01/31/25 10:57 Resp 16 01/31/25 10:57 BP 88/56 L 01/31/25 10:57 Pulse Ox 98 01/31/25 11:10 Laboratory Results - last 24 hr 01/30/25 01/31/25 17:00 06:35 WBC 10.99 H RBC 4.31 Hgb 11.6 Hct 37.3 MCV 87 MCH 26.9 L MCHC 31.1 L RDW 15.9 H Plt Count 272 MPV 9.8 Immature Gran % 0.7 Neutrophils % 85.6 Lymphocytes % 2.9 Monocytes % 9.7 Eosinophils % 1.0 Basophils % 0.1 Nucleated RBC % 0.0 Absolute Neutrophils 9.41 H Absolute Lymphocytes 0.32 L Absolute Monocytes 1.07 H Absolute Eosinophils 0.11 Absolute Basophils 0.01 PT 19.0 H 24.5 H INR 2.0 H 2.6 H Sodium 139 Potassium 3.5 Chloride 100 Carbon Dioxide 32.8 H Anion Gap 6.2 BUN 42 H Creatinine 1.0 Est GFR (CKD-EPI 2020) 55.21 Glucose 71 L Calcium 8.2 L Iron 28 L TIBC 384 Transferrin % Sat 7 L Total Bilirubin 1.2 H AST 22 ALT 31 Alkaline Phosphatase 143 H Total Protein 5.8 L Albumin 2.9 L Time Spent with Patient Time Spent with Patient: 35-49 minutes Time was spent: preparing to see the patient(eg.review tests), obtaining and/or reviewing separately otained hiistory, ordering medications,tests, procedures, referring, communicating with other health patient care representative, indepentently interpreting results, counseling the patient and care coordination
[2025-01-31 13:51] LABS: INR 2.8 (0.9-1.1); Prothrombin Time 26.1 sec (9.1-11.1)
--- NOTE | 2025-01-31 15:26 | PT.INTREAT ---
PT Notes Visit Reasons: Acute Exacerbation of CHP Inpatient Physical Therapy Treatment Note [facility] Date: 01/31/25 PRECAUTIONS: Fall. Standard. Activity as tolerated. EF of 20% per most recent echo, needs frequent rests. SUBJECTIVE: Pt c/o being very tired. She requested transfer back to bed. OBJECTIVE: Therapeutic Activities (11526h[1]): Direct one-on-one instruction in dynamic activities to improve functional performance. ? BED MOBILITY/TRANSFERS? Sit-supine: Mod A of 1 for (B) LE ? Sit-stand: CG of 1 ? Stand-sit: CG of 1 ? Chair to commode: CG of 1 with FFW ? Pt ambulated 10 ft from commode to bed with CG o1 and FFW Skilled instruction required for safety. ??? ASSESSMENT:? Limited ability to tolerate PT rx session due to fatigue. PLAN: Continue working on slow progression of strength, balance, and functional mobility while providing adequate rests while appropriately monitoring symptoms and vital signs. TREATMENT CODE/TIME: 42925 x 1 20 minutes 13:40-14:00 DISCHARGE RECOMMENDATION: Short-term SNF vs HH PT based on ability and availability of caregivers.
[2025-01-31] MEDS: Atorvastatin 10 MG TAB PO (20:34)
[2025-01-31] MEDS: Zolpidem 5 MG TAB PO (20:34)
[2025-01-31] MEDS: Insulin Glargine 300 UNITS/3 ML PEN 18 UNITS SC (20:35)
[2025-01-31] MEDS: Warfarin 5 MG TAB 7.5 MG PO (20:35)
[2025-02-01] VITALS (8 sets, daily range): BP systolic 82–101; BP diastolic 52–59; PULSE 63–97; RESP 16–24; TEMP 36.2–37; O2SAT 95–100
[2025-02-01] MEDS: Enoxaparin 60 MG/0.6 ML SYR SC (01:26)
[2025-02-01] MEDS: Levothyroxine 50 MCG TAB PO (05:50)
[2025-02-01 06:59] LABS: Abs Immature Grans 0.08 10^3/uL (0.0-0.06); HCT 39.6 % (36.0-46.0); HGB 12.3 g/dL (11.2-15.7); Immature Grans % 0.9 %; MCH 26.6 pg (27.0-33.0); MCHC 31.1 % (32.0-36.0); MCV 86 fL (80-95); MPV 10.1 fL (8.0-11.0); Platelet Count 262 10^3/uL (130-400); RBC 4.63 10^6/uL (3.93-5.22); RDW 16.1 % (11.7-14.6); RDW-SD 50.5 fL; WBC 8.75 10^3/uL (4.4-10.8)
[2025-02-01 07:18] LABS: Prothrombin Time 39.0 sec (9.1-11.1)
[2025-02-01 07:24] LABS: INR 4.3 (0.9-1.1)
[2025-02-01 08:01] LABS: ALT 30 U/L (14-59); AST 23 U/L (15-37); Albumin 2.9 g/dL (3.4-5.0); Alkaline Phosphatase 176 U/L (46-116); Anion Gap 5.8 mmol/L (3-11); BUN 47 mg/dL (7-18); Bilirubin, Total 1.1 mg/dL (0.2-1.0); CO2 32.2 mmol/L (21.0-32.0); Calcium 8.5 mg/dL (8.5-10.1); Chloride 99 mmol/L (98-107); Estimated GFR 44.36 (mL/min/1.73m2); Glucose 177 mg/dL (74-106); Potassium 3.6 mmol/L (3.5-5.1); Sodium 137 mmol/L (136-145); Total Protein 6.1 g/dL (6.4-8.2)
[2025-02-01] MEDS: Furosemide 40 MG/4 ML VIAL 80 MG IVP ×2 (08:30→16:41)
[2025-02-01] MEDS: Amiodarone 200 MG TAB PO (08:30)
[2025-02-01] MEDS: Empaglifozin 10 MG TAB PO (08:31)
[2025-02-01] MEDS: Spironolactone 25 MG TAB PO (08:31)
--- NOTE | 2025-02-01 08:31 | PDOC.CMPRO ---
Date of service: 02/01/25 Time of Service: 08:31 Care Management Progress Note Progress Note Text Progress Note Text: Sushma was sitting up in bed when CM met with her. She remains pale and appears fatigued. Sushma has not been sleeping well since her admission, despite receiving sleep aides at night. She continues to work with PT, however, even when she is tired. CM asked again about possible SNF referrals and Sushma agreed to have a referral sent to the [facility], which was done this afternoon. Sushma was being treated with warfarin and has been found to have an elevated INR at 4.3. It appears that her therapeutic goal would be around 3.5. Sushma still has BLE edema. Her weights have fluctuated from a low of 62.9 Kg to a high of 71.35, however the scale used to weigh her has not been consistent, nor has her I&O been accurate as she has been voiding in the commode and/or toilet. Discharge Potential Discharge Needs: PCP F/U Appt Anticipated Barriers to Discharge: Medical Status Patient/Family Education Needs: Review discharge instructions, discuss Ask Me Three Transportation: Private vehicle Plan: Anticipate Sushma will be discharged home, with new home health services, when medically stable. She would benefit from rehab however she is unwilling to go anywhere except [facility] which is closed to admissions and, as of today, [facility]. A referral was sent to the [facility] today. She will follow up with her PCP and plan of care and transport with family. CM will follow and continue to support discharge planning efforts. Social Determinants of Health Screening Social Determinants of health last assessed in clinic: 02/01/25 Will the Patient Participate in the Screening?: Yes Do you worry about having a steady place to live?: no Problems where you live: pests such as bugs, ants or mice In the past 12 months, have you had to go without electric, gas, oil or water in your home?: no 1. Within the past 12 months, we worried whether our food would run out before we got money to buy more.: Never true 2. Within the past 12 months, the food we bought just didn't last and we didn't have money to get more.: Never true Has lack of transportation kept you from medical appointments or from doing things needed for daily living?: no Has anyone in your life made you feel unsafe or unsupported?: no How hard is it for you to pay for the very basics like food, housing, medical care, and heating? Would you say it is:: Not hard at all Do you want help finding or keeping work or a job?: I do not need or want help If for any reason you need help with day-to-day activities such as bathing, preparing meals, shopping, managing finances, etc., do you get the help you need?: I don?t need any help How often do you feel lonely or isolated from those around you?: Never Do you speak a language other than [place] at home?: No Comments: neyda Health Related Social Needs Health related social needs: inadequate housing (Z59.1) Health related social needs details: bed bugs
[2025-02-01] MEDS: Normal Saline Flush 10 ML SYR IVP ×2 (08:32→20:23)
[2025-02-01] MEDS: Insulin Aspart 300 UNITS/3 ML PEN SC ×6 (08:32→17:19)
[2025-02-01] MEDS: Budesonide/Formoterol 160/4.5 6 GM 60 PUFF INH IH ×2 (09:08→20:32)
[2025-02-01] MEDS: IRON SUCROSE COMPLEX 200 MG in Normal Saline 100 ML 400 MG IVPB (10:08)
[2025-02-01] MEDS: Acetaminophen 325 MG TAB 650 MG PO ×2 (10:15→20:21)
--- NOTE | 2025-02-01 13:34 | PT.INTREAT ---
PT Notes Visit Reasons: Acute Exacerbation of CHP Inpatient Physical Therapy Treatment Note [facility] Date: 02/01/25 attempted session in am. Sushma was receiving iron via IV. When I returned she said she was too tired to get OOB and requested I come back after lunch. SUBJECTIVE: Sushma states that she is very tired and her legs hurt. She is willing to walk but not sure she will be able to do much. OBJECTIVE: []? PAIN:c/o B LE pain with wt bearing. VITALS: ?monitored by [facility] Therapeutic Activities ([id number]): Direct one-on-one instruction in dynamic activities to improve functional performance. ? BED MOBILITY/TRANSFERS? seated in recliner. ? Sit-supine: min assist with LE. ? Sit-stand: CGA? Stand-sit: CGA? Chair-Bed: CGA Provided skilled cues and instruction on performance and technique throughout. GAIT? Assistive Device: FWW ? Weight bearing: full Assist: CGA ? Distance:?30'x2 ? Deviation: slow short stride, wc follow? ? ? held on exercises today due to patient fatigue. ? ASSESSMENT:? tolerated session fair. Fear of legs giving out. Requests wc follow due to fear of falling. C/o weakness in B LE PLAN: will continue to work on her strength and functional mobility to tolerance following PT POC. TREATMENT CODE/TIME: 20 min. TAx1. DISCHARGE RECOMMENDATION: SNF
--- NOTE | 2025-02-01 13:55 | CHAPLAIN ---
Sushma continues to be weak and tired, she said. She has to get up a lot during the night to pee, so she said she isn't getting much sleep, even after trying a sleeping pill. She was up in the chair when I visited, but was hoping to get back into bed soon. She had a friend visit today and was happy about that. Sushma said her son was injured at work recently, so isn't moving around too much. I will continue to visit.
[2025-02-01 15:11] LABS: INR 3.7 (0.9-1.1); Prothrombin Time 34.1 sec (9.1-11.1)
--- NOTE | 2025-02-01 17:45 | PGE_ITS ---
Date of Service Date of service: 02/01/25 Time of Service: 17:45 Assessment and Plan Assessment and plan (1) Acute heart failure with reduced ejection fraction (HFrEF, <= 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: Status: Acute Assessment and plan: - History of HFrEF noted after [place] with prolonged hospitalization in August 2024, admitted here for same in September - Echocardiogram repeated, still low LVEF 25%, severe TR, no change, IVC still plethoric. - Was responding to IV furosemide, but weight up on oral torsemide and edema worse - Resumed IV furosemide 01/27. BPs soft but seemed to be imrpoving with diruesis. - Cardiology consult 01/27 agrees she need more diuresis, appreciate input. - Continue empagliflozin but cut to HF dose. Spironolactone held 01/23, will resumed 01/27 at low dose as should help duiresis, increased back to 25mg 01/28. - weight going back down and fluid negative since changes 01/26, but up 01/29 with more edema desite IV furosemide, will increase dose to 80mg BID - Not on SHABANA agent, but BP too low to start now. We could also consider adding low dose metoprolol succinate, which may have less BP effects. - also palliative care consult given multiple recent admissions and poor QOL since prolonged admission this Winter/spring, made DNR/DNI 01/30/25 I/O shows net loss of 150ml over last 24 hours Weight 70.94->66.8 kg. C/w lasix 80 bid/aldactone 25mg daily/jardiance. Pt would benefit from Entresto? Will check iron levels as well as low iron can make symptoms of chf worse. 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 01/31/25 resolved (3) A-fib: Assessment and plan: - Currently rate controlled - Continue amiodarone. - She has mechanical mitral valve, back on warfarin, monitor INRs, now trending up, continue 7.5mg, consider adjusting daily . 8.. pt is actually on amiodarone class III antiarrhythmic. HR is 104. Consider BB (4) Hypothyroid: Status: Chronic Assessment and plan: TSH still high, related to amiodarone. With fatigue, increased levothyroxine to 50mcg from 37mcg. Repeat TSH will be due early March. (5) CAD (coronary artery disease): Assessment and plan: - History of CAD - No complaints of active chest pain - Continue home statin, anticoagulation (6) Type 2 diabetes mellitus: Assessment and plan: - Continue Jardiance, though with CKD I'm not sure it is doing much for her blood sugar. 10mg should be just as good for CV effect. - sugars high here, started low dose glargine in 01/25, increased slightly 01/26 to 12 units, then 18 with prednisone. Sugars still high, on prednisone. Stopping this after today, so we may need to back down again on insulin. - Sliding scale insulin, heart healthy carb consistent diet (7) Elevated transaminase level: Status: Acute Assessment and plan: related to CHF. amiodarone also a risk, but much imrpoved on repeat suggesting this was CHF. (8) Wheezing: Status: Acute Assessment and plan: No clear diagnosis of Asthma/COPD, but she reports asthma and has been treated with ICS/LABA. Imaging showed some airway bronchiectasis. She did seem to have responded to prednisone, but now wheeze returned a/w more fluid, so I don't think this is asthma/COPD. Stop the prednisone. Can still use bronchodilators prn. (9) Mitral valve stenosis: Assessment and plan: Pt does have a history of mechanical mitral valve and therefore will need lifetime anticoagulation. Depending on the valve type and other factors the INR goal is 3 to 3.5. Eliquis has been held and the pt is on warfarin but is not at goal. Pt will be bridged with lovenox in the interim 1mg/kg sq bid. 01/31/25 Latest INR shows a value of 2.6 which is below goal. Will c/w coumadin at 7.5 today and deescelate tomorrow if INR continues to increase. Would appear that pt INR goal is unknown at this point. Will review chart to see if any info about type of valve can be found 02/01/25 INR at 3.7 Restarted 5mg po daily. Stopped lovenox Subjective Subjective Interval history since last seen: no new complaints Exam Narrative Exam Narrative: HEENT-NCAT MMM EOMI PERRLA NECK-NO LAD NO JVD CV-IR/IR 3/6 ZHANE PULM-BILAT WHEEZE NO AMU SPEAKS IN COMPLETE SENTENCES ABD-SNTNDBSA EXT-2PLUS KANWAL BILAT TO MID CALVES Objective Last Vital Signs Temp 36.3 C L 02/01/25 15:01 Pulse 91 H 02/01/25 15:01 Resp 16 02/01/25 15:01 BP 92/58 L 02/01/25 15:01 Pulse Ox 97 02/01/25 15:01 Laboratory Results - last 24 hr 02/01/25 02/01/25 06:00 13:23 WBC 8.75 RBC 4.63 Hgb 12.3 Hct 39.6 MCV 86 MCH 26.6 L MCHC 31.1 L RDW 16.1 H Plt Count 262 MPV 10.1 Immature Gran % 0.9 Neutrophils % 85.1 Lymphocytes % 3.1 Monocytes % 8.6 Eosinophils % 2.1 Basophils % 0.2 Nucleated RBC % 0.0 Absolute Neutrophils 7.45 H Absolute Lymphocytes 0.27 L Absolute Monocytes 0.75 Absolute Eosinophils 0.18 Absolute Basophils 0.02 PT 39.0 H 34.1 H INR 4.3 H* 3.7 H Sodium 137 Potassium 3.6 Chloride 99 Carbon Dioxide 32.2 H Anion Gap 5.8 BUN 47 H Creatinine 1.2 H Est GFR (CKD-EPI 2020) 44.36 Glucose 177 H Calcium 8.5 Total Bilirubin 1.1 H AST 23 ALT 30 Alkaline Phosphatase 176 H Total Protein 6.1 L Albumin 2.9 L Time Spent with Patient Time Spent with Patient: 25-34 minutes Time was spent: preparing to see the patient(eg.review tests), obtaining and/or reviewing separately otained hiistory, ordering medications,tests, procedures, referring, communicating with other health child day care teacher, indepentently interpreting results, counseling the patient and care coordination
[2025-02-01] MEDS: Atorvastatin 10 MG TAB PO (20:21)
[2025-02-01] MEDS: Insulin Glargine 300 UNITS/3 ML PEN 18 UNITS SC (20:22)
[2025-02-01] MEDS: Zolpidem 5 MG TAB PO (21:41)
[2025-02-02 04:45] VITALS: BP 102/59; PULSE 70; RESP 20; TEMP 36; O2SAT 94
[2025-02-02] MEDS: Levothyroxine 50 MCG TAB PO (05:06)
[2025-02-02 06:52] LABS: Abs Immature Grans 0.08 10^3/uL (0.0-0.06); HCT 37.5 % (36.0-46.0); HGB 11.6 g/dL (11.2-15.7); Immature Grans % 0.9 %; MCH 26.3 pg (27.0-33.0); MCHC 30.9 % (32.0-36.0); MCV 85 fL (80-95); MPV 9.7 fL (8.0-11.0); Platelet Count 272 10^3/uL (130-400); RBC 4.41 10^6/uL (3.93-5.22); RDW 16.3 % (11.7-14.6); RDW-SD 50.4 fL; WBC 9.13 10^3/uL (4.4-10.8)
[2025-02-02 07:03] LABS: Prothrombin Time 47.7 sec (9.1-11.1)
[2025-02-02 07:12] LABS: ALT 23 U/L (14-59); AST 21 U/L (15-37); Albumin 2.7 g/dL (3.4-5.0); Alkaline Phosphatase 143 U/L (46-116); Anion Gap 5.2 mmol/L (3-11); BUN 44 mg/dL (7-18); Bilirubin, Total 0.7 mg/dL (0.2-1.0); CO2 32.8 mmol/L (21.0-32.0); Calcium 8.3 mg/dL (8.5-10.1); Chloride 98 mmol/L (98-107); Estimated GFR 44.36 (mL/min/1.73m2); Glucose 66 mg/dL (74-106); Potassium 3.4 mmol/L (3.5-5.1); Sodium 136 mmol/L (136-145); Total Protein 5.7 g/dL (6.4-8.2)
[2025-02-02 07:17] LABS: INR 5.3 (0.9-1.1)
[2025-02-02 07:39] VITALS: BP 113/66; PULSE 60; RESP 20; TEMP 36.5; O2SAT 95
--- NOTE | 2025-02-02 08:16 | PDOC.CMPRO ---
Date of service: 02/02/25 Time of Service: 08:16 Care Management Progress Note Progress Note Text Progress Note Text: Sushma was sitting up in bed when CM met with her. She was smiling and shared that she feels a little better today as she slept a bit better last night. The breastfeeding program coordinator for the [facility] contacted CM today to inquire if Sushma's Warfarin could be changed to Apixaban. Unfortunately, because of her mechanical heart valve, the Apixaban will not be effective. Mary Arredondo from Palliative Care called the provider at the [facility] to discuss. She was told that it would NOT be a barrier to admission. The [facility] has a bed offer pending for another patient but if it is not accepted tomorrow, Sushma will receive the bed offer. CM shared this with Sushma who is hopeful. She informed CM that she would rather remain at [facility] but understands the limitations of the swing bed program in a critical access hospital. Discharge Potential Discharge Needs: PCP F/U Appt Anticipated Barriers to Discharge: None Identified Patient/Family Education Needs: Review discharge instructions, discuss Ask Me Three Transportation: Private vehicle Plan: Anticipate Sushma will be transferred to a SNF for short term rehab prior to returning home. She will follow up with the facility providers and plan of care and transport via [facility]. A referral was sent to the [place]. CM will follow and continue to support discharge planning efforts. Social Determinants of Health Screening Social Determinants of health last assessed in clinic: 02/02/25 Will the Patient Participate in the Screening?: Yes Do you worry about having a steady place to live?: no Problems where you live: pests such as bugs, ants or mice In the past 12 months, have you had to go without electric, gas, oil or water in your home?: no 1. Within the past 12 months, we worried whether our food would run out before we got money to buy more.: Never true 2. Within the past 12 months, the food we bought just didn't last and we didn't have money to get more.: Never true Has lack of transportation kept you from medical appointments or from doing things needed for daily living?: no Has anyone in your life made you feel unsafe or unsupported?: no How hard is it for you to pay for the very basics like food, housing, medical care, and heating? Would you say it is:: Not hard at all Do you want help finding or keeping work or a job?: I do not need or want help If for any reason you need help with day-to-day activities such as bathing, preparing meals, shopping, managing finances, etc., do you get the help you need?: I don?t need any help How often do you feel lonely or isolated from those around you?: Never Do you speak a language other than [place] at home?: No Comments: bedbugs Health Related Social Needs Health related social needs: inadequate housing (Z59.1) Health related social needs details: bed bugs
--- NOTE | 2025-02-02 08:50 | PCPN_ITS ---
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: Status: Acute Assessment and plan: repeat ECHO, EF 25% refractory edema, currently w/IV Lasix 80mg BID, will transition to oral diuretics tonight continue to monitor I/Os weights inconsistent cardio consult, see their note, continue IV diuresis, limited options, needs to be on warfarin for anticoagulation (2) Atrial fibrillation with rapid ventricular response: Status: Acute Assessment and plan: currently on amiodarone, considering switch to BB, pending HR response, today in 60's (3) Anticoagulated on Coumadin: Status: Acute Assessment and plan: needs to continue given MV replacement initially SNF wanted consideration to transition to Eliquis, not a barrier to admission to SNF (4) H/O mitral valve replacement with mechanical valve: Status: Acute (5) Aortic stenosis, moderate: (6) Severe tricuspid regurgitation: (7) Shortness of breath: Status: Acute Assessment and plan: likely multifactorial: fluid overload, deconditioning, anemia, cardiac function (8) CKD (chronic kidney disease): Assessment and plan: did not review (9) Impaired instrumental activities of daily living: Status: Acute Assessment and plan: now fully dependent (10) Deficit in activities of daily living (ADL): Status: Acute Assessment and plan: ind at baseline, goal to return; needs assistance at this time (11) Palliative care patient: Status: Acute Assessment and plan: PC will continue to follow, next inpt available on Friday - to continue conversation regarding hospice benefit, comfort directed care and QoL goals - return hospitalizations, invasive treatments/preferences spoke to [facility] [place] RN, they understand her need for warfarin, not a barrier to her admission, just an inquiry per their preference for Eliquis. They offered bed to someone else, will contact [facility] tomorrow w/updates (12) Advanced care planning/counseling discussion: Status: Acute Assessment and plan: reviewed progressive heart disease, not likely to improve to status of a year ago, new baseline more closely related to a week ago (prior to current exacerbation); reviewed hospice eligible d/t current heart condition, function, recurrent hospitalizations and refractory edema; she has not heard of hospice before, has not considered comfort directed treatment; would want to think more about if she would want hospice supports reviewed her current GOC include goal of returning home, would prefer to be there if possible, would not want EOL there would prefer to be in hospital; reviewed preferences for no transfer to tertiary hospital, would prefer to remain local, even if that means EOL sooner; while she is not ready to , she does see that she is going in to her last chapters of life. She would want to avoid recurrent hospitalizations if possible, but would want to return if she was so sick she needed supports w/sxs management. She would prefer to avoid needles like IVs and is happy to trial PO meds instead. She is okay w/INR finger sticks reviewed d/c plan to a SNF, she is agreeable to this Subjective Subjective Interval history since last seen: Sushma remains hospitalized 2/2 acute CHF exacerbation She was last seen by Palliative on 01/28, where she completed a COLST form and confirmed [facility]CA is son Art Chan since last visit Difficulty w/finding fluid balance, edema intermittent despite IV Lasix; PRACHI now resolved; ECHO w/EF stable at 25% Cardio consult: keep diuresing, warfarin recommended for blood thinner; additional options limited [place]ush[place] agrees to discharge to [place], preferences were [facility], agreeable to [facility] since [facility] closed to admissions. per staff for today: poor IV access, wonder if consider midline for ongoing IV diuresis vs switch to PO Lasix; weight up again this morning, INR also up, warfarin on hold. ADLs walking ind w/walker, frequent rests, limited d/t fatig ue, continent of BM/U, appetite okay, hygiene w/set up Sushma has had a busy day. She got cleaned up this morning, worked with PT. She is fatigued. This is not a new sxs for her, however is increasingly impactful on her day to day. She reports she slept well last night, the best she has slept in a long time, reports does use home Ambien for sleep, which is useless most of the time. Sushma is ind w/ADLs at baseline, though acknowledges things are harder to do and taking more time at home. She has to practice energy conservation daily, only able to make 60% of bed before needing a rest. She is aware that in her current condition she would not be safe to return to her home and that she needs help now Her daughter Flaca is unable to care for her, end stage COPD. Her son Art visits daily and does what he can, he cannot be her delivery coordinator. He is currently staying at [facility] while his house is being worked on. She had a heart transplant in 2001. She is aware she has a progressively worsening heart condition currently, and that she will likely not return to previous baselines, requiring help, edema and fatigue are likely not going away. While she is not ready to today, she has been thinking about how she is coming to the end stages of her own life and that she will not be here forever. If she could choose she would be in hospital for EOL, would not want her child cherry to have to worry about that. She is okay w/being in the hospital currently. She reports she has been in hospital 8 times in past year. She would be okay w/returning to hospital post discharge, but would prefer to avoid this, would only want to come if sicker and could not be managed at home. - She does not like needles, she does not want more IV lines and if they can be avoided would prefer this. She does feel it is appropriate for her to be discharged to a senior care/SNF, her goal would be to regain strength enough to consider returning home. She cannot identify any caregivers to have in home at this moment. She is agreeable to hearing about hospice Exam Narrative Exam Narrative: General: older adult frail female, witnessed standing w/walker outside room w/PT initially, sitting on commode attempt #2, resting in bed on 3rd attempt for visit; wakes to light voice volume, engages immediately; fatigued HEENT: normocephalic, atraumatic, hearing grossly WNL Resp: even and unlabored at rest. speaks full sentences w/o resp changes; no cough, no audible wheeze Psych: cooperative, pleasant, thought process impoverished to normal, insight/judgment fair Objective Last Vital Signs Temp 97.7 F 02/02/25 07:39 Pulse 60 02/02/25 07:39 Resp 20 02/02/25 07:39 BP 113/66 02/02/25 07:39 Pulse Ox 95 02/02/25 07:39 Laboratory Results - last 24 hr 02/01/25 02/02/25 13:23 06:50 WBC 9.13 RBC 4.41 Hgb 11.6 Hct 37.5 MCV 85 MCH 26.3 L MCHC 30.9 L RDW 16.3 H Plt Count 272 MPV 9.7 Immature Gran % 0.9 Neutrophils % 87.9 Lymphocytes % 2.2 Monocytes % 7.7 Eosinophils % 1.2 Basophils % 0.1 Nucleated RBC % 0.0 Absolute Neutrophils 8.03 H Absolute Lymphocytes 0.20 L Absolute Monocytes 0.70 Absolute Eosinophils 0.11 Absolute Basophils 0.01 PT 34.1 H 47.7 H INR 3.7 H 5.3 H* Sodium 136 Potassium 3.4 L Chloride 98 Carbon Dioxide 32.8 H Anion Gap 5.2 BUN 44 H Creatinine 1.2 H Est GFR (CKD-EPI 2020) 44.36 Glucose 66 L Calcium 8.3 L Total Bilirubin 0.7 AST 21 ALT 23 Alkaline Phosphatase 143 H Total Protein 5.7 L Albumin 2.7 L
[2025-02-02] MEDS: Budesonide/Formoterol 160/4.5 6 GM 60 PUFF INH IH ×2 (08:59→20:33)
[2025-02-02] MEDS: Insulin Aspart 300 UNITS/3 ML PEN SC ×3 (09:07→17:03)
[2025-02-02] MEDS: Normal Saline Flush 10 ML SYR IVP (09:07)
[2025-02-02] MEDS: Empaglifozin 10 MG TAB PO (09:08)
[2025-02-02] MEDS: Amiodarone 200 MG TAB PO (09:08)
[2025-02-02] MEDS: Spironolactone 25 MG TAB PO (09:08)
[2025-02-02 12:14] VITALS: BP 74/55; PULSE 48; RESP 18; TEMP 36.5; O2SAT 98
--- NOTE | 2025-02-02 12:27 | PT.INTREAT ---
PT Notes Visit Reasons: Acute Exacerbation of CHP Inpatient Physical Therapy Progress Note Date: 02/02/2025 Dates of Service: 01-25-2020 through 01/31/2025 PRECAUTIONS: Weightbearing as tolerated, IV access SUBJECTIVE: Patient reports she remains fatigued and discouraged by the swelling in her legs. OBJECTIVE PAIN: back 07/12 BLE BED MOBILITY/TRANSFERS Rolling L/R: supervision Supine-sit: CGAand increased time Sit-supine: min A for BLE Sit-stand: SBA with cues to push up to stand Stand-sit: SBA Bed-Chair: CGA FWW Chair-bed: CGA FWW GAIT Assistive Device:FWW Weight bearing: WBAT Assist: CGA with w/c follow Distance: 20-60 feet Deviation: reduced step length , narrow PETER VITALS: monitored via telemetry throughout THEREX: seated Ankle pumps, LAQ, marching, supine heel slides QS STAIRS: unable to perform Assessment: Sushma has had a complicated stay with fluctuations in edema bilateral lower extremities limiting her ability to progress with functional mobility. Patient has had episodes of wheezing and shortness of breath. Sushma demonstrates potential to improve current level of function. She remains motivated to return to her home. The pain in her left shoulder has resolved and is no longer interfering with her functional abilities. Patient would benefit from short-term SNF to improve functional abilities and ADL function prior to discharge to home as she is currently dependent for ADLs. Patient is an 84 yo female who presents with clinical signs and symptoms consistent with current/admitting diagnoses that have resulted to mobility limitations, gait instability, generalized weakness, and impairment of motor control as demonstrated by the following impairment level findings: 1. Decreased strength to BUE/BLE major muscle groups 2. Impaired standing balance 3. impaired functional activity tolerance 4. BLE 3+ edema toes to pelvis Impairments are contributing to the following functional limitations: 1. Inability to safely ambulate without assistive device 2. Increase completion time for mobility ADL performance 3. Increased fall risk 4. difficulty performing transfers independently 5. difficulty performing stairs safely without assistance. Patient is assessed as a low complexity based on the following: History: 84-year-old female with impairment level findings, functional limitations, and past medical history as indicated above Examination: Demonstrable impairment in strength, balance, and mobility level with underlying impairments and functional limitations as documented above Presentation: stable / evolving Decision Making: low Goals: Goals not met continue x 1 week 1. independent bed mobility 2. mod independent transfers with FWW 3. mod independent ambulation with FWW >50 feet x 2 4. CGA 2 steps to safely enter and exit home PLAN OF CARE/TREATMENT PLAN: 1-2x/day, 7 days/ week x 1 week Plan of care has been reviewed with the MAINTENANCE DATA ANALYST providing the service under Physical therapy direction. Initiate physical therapy intervention for strengthening, bed mobility, transfers, gait, stairs, balance training, use of assistive device. DISCHARGE RECOMMENDATIONS: SNF TREATMENT CODE/TIME: 74896/ [id number]
[2025-02-02 12:58] VITALS: BP 80/50
--- NOTE | 2025-02-02 12:58 | PGE_ITS ---
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 - Was responding to IV furosemide, but weight up on oral torsemide and edema worse - Resumed IV furosemide 01/27. BPs soft but seemed to be imrpoving with diruesis. - Cardiology consult 01/27 agrees she need more diuresis, appreciate input. - Continue empagliflozin but cut to HF dose. Spironolactone held 01/23, will resumed 01/27 at low dose as should help duiresis, increased back to 25mg 01/28. - weight going back down and fluid negative since changes 01/26, but up 01/29 with more edema desite IV furosemide, will increase dose to 80mg BID - Not on SHABANA agent, but BP too low to start now. We could also consider adding low dose metoprolol succinate, which may have less BP effects. - also palliative care consult given multiple recent admissions and poor QOL since prolonged admission this Winter/spring, made DNR/DNI 01/30/25 I/O shows net loss of 150ml over last 24 hours Weight 70.94->66.8 kg. C/w lasix 80 bid/aldactone 25mg daily/jardiance. Pt would benefit from Entresto? Will check iron levels as well as low iron can make symptoms of chf worse. 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 01/31/25 resolved (3) A-fib: Assessment and plan: - Currently rate controlled - Continue amiodarone. - She has mechanical mitral valve, back on warfarin, monitor INRs, now trending up, continue 7.5mg, consider adjusting daily . 01.30.25 pt is actually on amiodarone class III antiarrhythmic and rate control. HR is 104. Consider BB 02/02/25 Last recorded HR recorded as 60. Would hesitate to start BB with this HR (4) Hypothyroid: Status: Chronic Assessment and plan: TSH still high, related to amiodarone. With fatigue, increased levothyroxine to 50mcg from 37mcg. Repeat TSH will be due early March. (5) CAD (coronary artery disease): Assessment and plan: - History of CAD - No complaints of active chest pain - Continue home statin, anticoagulation 02/02/25 Cardiology consultation reviewed 01/27/[address] Brown: (2) H/O mitral valve replacement with mechanical valve: Status: Acute Assessment and plan: Patient has a mechanical mitral valve replacement. Unfortunately she cannot take one of the newer anticoagulants given this history. She needs to be changed back to warfarin (3) A-fib: Assessment and plan: Heart rate is acceptable. Because of her mechanical valve, she needs to be on warfarin for stroke prevention (6) Type 2 diabetes mellitus: Assessment and plan: - Continue Jardiance, though with CKD I'm not sure it is doing much for her blood sugar. 10mg should be just as good for CV effect. - sugars high here, started low dose glargine in 01/25, increased slightly 01/26 to 12 units, then 18 with prednisone. Sugars still high, on prednisone. Stopping this after today, so we may need to back down again on insulin. - Sliding scale insulin, heart healthy carb consistent diet (7) Elevated transaminase level: Status: Acute Assessment and plan: related to CHF. amiodarone also a risk, but much imrpoved on repeat suggesting this was CHF. (8) Wheezing: Status: Acute Assessment and plan: No clear diagnosis of Asthma/COPD, but she reports asthma and has been treated with ICS/LABA. Imaging showed some airway bronchiectasis. She did seem to have responded to prednisone, but now wheeze returned a/w more fluid, so I don't think this is asthma/COPD. Stop the prednisone. Can still use bronchodilators prn. (9) Mitral valve stenosis: Assessment and plan: Pt does have a history of mechanical mitral valve and therefore will need lifetime anticoagulation. Depending on the valve type and other factors the INR goal is 3 to 3.5. Eliquis has been held and the pt is on warfarin but is not at goal. Pt will be bridged with lovenox in the interim 1mg/kg sq bid. 01/31/25 Latest INR shows a value of 2.6 which is below goal. Will c/w coumadin at 7.5 today and deescalate tomorrow if INR continues to increase. Would appear that pt INR goal is unknown at this point. Will review chart to see if any info about type of valve can be found 02/01/25 INR at 3.7 Restarted 5mg po daily. Stopped lovenox 02/02/25 INR currently 5.3. Decreased coumadin to 5mg daily and recheck in am (10) Hypokalemia: Status: Acute Assessment and plan: relpace with oral meds. Pt is on lasix and aldactone. Recheck labs in am Subjective Subjective Interval history since last seen: Pt still with insomnia. She does not attribute this to S/S of chf though. Exam Narrative Exam Narrative: HEENT-NCAT MMM EOMI PERRLA NECK-NO LAD NO JVD CV-IR/IR 3/6 ZHANE PULM-BILAT WHEEZE NO AMU SPEAKS IN COMPLETE SENTENCES ABD-SNTNDBSA EXT-2PLUS KANWAL BILAT TO MID CALVES Objective Last Vital Signs Temp 36.5 C 02/02/25 12:14 Pulse 48 L 02/02/25 12:14 Resp 18 02/02/25 12:14 BP 74/55 L 02/02/25 12:14 Pulse Ox 98 02/02/25 12:14 Laboratory Results - last 24 hr 02/01/25 02/02/25 13:23 06:50 WBC 9.13 RBC 4.41 Hgb 11.6 Hct 37.5 MCV 85 MCH 26.3 L MCHC 30.9 L RDW 16.3 H Plt Count 272 MPV 9.7 Immature Gran % 0.9 Neutrophils % 87.9 Lymphocytes % 2.2 Monocytes % 7.7 Eosinophils % 1.2 Basophils % 0.1 Nucleated RBC % 0.0 Absolute Neutrophils 8.03 H Absolute Lymphocytes 0.20 L Absolute Monocytes 0.70 Absolute Eosinophils 0.11 Absolute Basophils 0.01 PT 34.1 H 47.7 H INR 3.7 H 5.3 H* Sodium 136 Potassium 3.4 L Chloride 98 Carbon Dioxide 32.8 H Anion Gap 5.2 BUN 44 H Creatinine 1.2 H Est GFR (CKD-EPI 2020) 44.36 Glucose 66 L Calcium 8.3 L Total Bilirubin 0.7 AST 21 ALT 23 Alkaline Phosphatase 143 H Total Protein 5.7 L Albumin 2.7 L Time Spent with Patient Time Spent with Patient: 35-49 minutes Time was spent: preparing to see the patient(eg.review tests), obtaining and/or reviewing separately otained hiistory, ordering medications,tests, procedures, referring, communicating with other health home health care case manager, indepentently interpreting results, counseling the patient and care coordination
--- NOTE | 2025-02-02 13:46 | W.NUTRFU ---
Date of service: 02/02/25 Time of Service: 13:47 Nutrition Note NOTE: Sushma with fair to good intake from meal trays. Expedite protein/wound healing supp offered BID along with GC Boost ONS for additional protein. Also ordered for liq protein TID for possible 45g protein per day if taken by patient - Weight relatively stable over this admission, however noted edema (both pitting and non) noted in extremities. FPG 66 this morning, 73 at breakfast and 112 at lunch. Pt getting an extra 5 units at meals along with sliding scale regardless of glucose - would suggest altering this to only if pt glucose is >140 higher to avoid risk of hypoglycemia. Unable to visit with patient today, but will visit tomorrow to assess acceptance of ons Time Spent in Nutritional Counseling and Treatment: 0
[2025-02-02 13:47] LABS: Prothrombin Time 45.4 sec (9.1-11.1)
[2025-02-02 13:52] LABS: INR 5.1 (0.9-1.1)
[2025-02-02] MEDS: Furosemide 40 MG TAB PO (17:02)
[2025-02-02 19:44] VITALS: BP 90/60; PULSE 106; RESP 18; TEMP 36.8; O2SAT 96
[2025-02-02] MEDS: Ferrous Sulfate 325 MG TAB PO (21:55)
[2025-02-02] MEDS: Potassium Chloride 20 MEQ TABCR PO (21:55)
[2025-02-02] MEDS: Atorvastatin 10 MG TAB PO (21:55)
[2025-02-02] MEDS: Insulin Glargine 300 UNITS/3 ML PEN 15 UNITS SC (21:57)
[2025-02-02] MEDS: Zolpidem 5 MG TAB PO (23:48)
[2025-02-02] MEDS: Polyethylene Glycol 3350 17 GM PACKET PO (23:49)
[2025-02-03] VITALS (7 sets, daily range): BP systolic 78–94; BP diastolic 40–69; PULSE 65–109; RESP 16–18; TEMP 36–36.3; O2SAT 96–98
[2025-02-03] MEDS: Acetaminophen 325 MG TAB 650 MG PO (01:45)
[2025-02-03] MEDS: Levothyroxine 50 MCG TAB PO (05:10)
[2025-02-03 06:40] LABS: Abs Immature Grans 0.08 10^3/uL (0.0-0.06); HCT 38.4 % (36.0-46.0); HGB 12.0 g/dL (11.2-15.7); Immature Grans % 0.9 %; MCH 26.6 pg (27.0-33.0); MCHC 31.3 % (32.0-36.0); MCV 85 fL (80-95); MPV 9.9 fL (8.0-11.0); Platelet Count 302 10^3/uL (130-400); RBC 4.51 10^6/uL (3.93-5.22); RDW 16.6 % (11.7-14.6); RDW-SD 51.7 fL; WBC 8.75 10^3/uL (4.4-10.8)
[2025-02-03 06:57] LABS: ALT 23 U/L (14-59); AST 23 U/L (15-37); Albumin 2.8 g/dL (3.4-5.0); Alkaline Phosphatase 146 U/L (46-116); Anion Gap 3.6 mmol/L (3-11); BUN 51 mg/dL (7-18); Bilirubin, Total 0.7 mg/dL (0.2-1.0); CO2 30.4 mmol/L (21.0-32.0); Calcium 8.4 mg/dL (8.5-10.1); Chloride 98 mmol/L (98-107); Estimated GFR 33.94 (mL/min/1.73m2); Glucose 68 mg/dL (74-106); Potassium 4.1 mmol/L (3.5-5.1); Sodium 132 mmol/L (136-145); Total Protein 6.1 g/dL (6.4-8.2)
[2025-02-03 06:58] LABS: Prothrombin Time 44.7 sec (9.1-11.1)
[2025-02-03 07:01] LABS: INR 5.0 (0.9-1.1)
[2025-02-03] MEDS: Amiodarone 200 MG TAB PO (08:13)
[2025-02-03] MEDS: Potassium Chloride 20 MEQ TABCR PO ×2 (08:13→19:39)
[2025-02-03] MEDS: Ferrous Sulfate 325 MG TAB PO ×2 (08:13→19:39)
[2025-02-03] MEDS: Empaglifozin 10 MG TAB PO (08:13)
[2025-02-03] MEDS: Budesonide/Formoterol 160/4.5 6 GM 60 PUFF INH IH ×2 (08:30→20:16)
[2025-02-03] MEDS: Insulin Aspart 300 UNITS/3 ML PEN SC ×5 (09:15→17:50)
--- NOTE | 2025-02-03 09:15 | PDOC.CMPRO ---
Date of service: 02/03/25 Time of Service: 09:15 Care Management Progress Note Progress Note Text Progress Note Text: Sushma was sitting up in a chair when CM met with her. She did not receive a bed offer from the [facility], however, [facility] may reopen soon. CM spoke with the DON yesterday who indicated that permission to reopen is expected any day. 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 Discharge Potential Discharge Needs: PCP F/U Appt Anticipated Barriers to Discharge: None Identified Patient/Family Education Needs: Review discharge instructions, discuss Ask Me Three Transportation: Private vehicle Plan: Anticipate Sushma will be transferred to a SNF for short term rehab prior to returning home. She will follow up with the facility providers and plan of care and transport via RCT. A referral was sent to the [facility]. CM will follow and continue to support discharge planning efforts. Social Determinants of Health Screening Social Determinants of health last assessed in clinic: 02/03/25 Will the Patient Participate in the Screening?: Yes Do you worry about having a steady place to live?: no Problems where you live: pests such as bugs, ants or mice In the past 12 months, have you had to go without electric, gas, oil or water in your home?: no 1. Within the past 12 months, we worried whether our food would run out before we got money to buy more.: Never true 2. Within the past 12 months, the food we bought just didn't last and we didn't have money to get more.: Never true Has lack of transportation kept you from medical appointments or from doing things needed for daily living?: no Has anyone in your life made you feel unsafe or unsupported?: no How hard is it for you to pay for the very basics like food, housing, medical care, and heating? Would you say it is:: Not hard at all Do you want help finding or keeping work or a job?: I do not need or want help If for any reason you need help with day-to-day activities such as bathing, preparing meals, shopping, managing finances, etc., do you get the help you need?: I don?t need any help How often do you feel lonely or isolated from those around you?: Never Do you speak a language other than Vietnamese at home?: No Comments: bedbugs Health Related Social Needs Health related social needs: inadequate housing (Z59.1) Health related social needs details: bed bugs
--- NOTE | 2025-02-03 09:25 | PTTR_ITS ---
PT Notes Visit Reasons: Acute Exacerbation of CHP Inpatient Physical Therapy Treatment Note [facility] Date: 02/03/25 SUBJECTIVE: Sushma states that she is very tired and did not fall asleep until 530 am; her legs hurt. She is willing to walk but not sure she will be able to do much. OBJECTIVE:(AM Session) seated on commode when approached for PT ? ?( PM pt seated on recliner) BLE Edema to trunk expiratory wheezes noted ? PAIN:c/o B LE pain with wt bearing. [place] [facility] Activities (66054h0): Direct one-on-one instruction in dynamic activities to improve functional performance. ?? AM/PM sessions ? BED MOBILITY/TRANSFERS? Sit-supine: min assist with LE. ? Sit-stand: CGA?x3 trials ? Stand-sit: CGA? x 3 trials? Chair-Bed: CGA with FWW Provided skilled cues and instruction on performance and technique throughout. GAIT? Assistive Device: FWW ? Weight bearing: full Assist: CGA ? Distance:?10'x1 ?AM; 14 feet x 1 10 feet x 1 in PM ? Deviation: slow short stride, ? ? held on exercises today due to patient fatigue. ? ASSESSMENT:? pt with decline in activity tolerance today with increased expiratory wheezing noted with functional tasks. PLAN: will continue to work on her strength and functional mobility to tolerance following PT POC. TREATMENT CODE/TIME: 1st session: 70036/ [id number] 2nd session: 61314/ [id number] DISCHARGE RECOMMENDATION: SNF
--- NOTE | 2025-02-03 12:33 | PGE_ITS ---
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 - Was responding to IV furosemide, but weight up on oral torsemide and edema worse - Resumed IV furosemide 01/27. BPs soft but seemed to be imrpoving with diruesis. - Cardiology consult 01/27 agrees she need more diuresis, appreciate input. - Continue empagliflozin but cut to HF dose. Spironolactone held 01/23, will resumed 01/27 at low dose as should help duiresis, increased back to 25mg 01/28. - weight going back down and fluid negative since changes 01/26, but up 01/29 with more edema desite IV furosemide, will increase dose to 80mg BID - Not on SHABANA agent, but BP too low to start now. We could also consider adding low dose metoprolol succinate, which may have less BP effects. - also palliative care consult given multiple recent admissions and poor QOL since prolonged admission this Winter/spring, made DNR/DNI 01/30/25 I/O shows net loss of 150ml over last 24 hours Weight 70.94->66.8 kg. C/w lasix 80 bid/aldactone 25mg daily/jardiance. Pt would benefit from Entresto? Will check iron levels as well as low iron can make symptoms of chf worse. 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 Due to low BP, diuretics being held. Will start on midodrine to see if this can help with hypotension and make diuresis safer. (2) Acute kidney injury superimposed on CKD: Status: Acute Assessment and plan: - History of CKD, Cr 1.8 on admission -down to 1.1 as of AM 01/29, despite IV diuresis, continue to monitor on higher dose. 01/31/25 resolved (3) A-fib: Assessment and plan: - Currently rate controlled - Continue amiodarone. - She has mechanical mitral valve, back on warfarin, monitor INRs, now trending up, continue 7.5mg, consider adjusting daily . 01.30.25 pt is actually on amiodarone class III antiarrhythmic and rate control. HR is 104. Consider BB 02/02/25 Last recorded HR recorded as 60. Would hesitate to start BB with this HR (4) Hypothyroid: Status: Chronic Assessment and plan: TSH still high, related to amiodarone. With fatigue, increased levothyroxine to 50mcg from 37mcg. Repeat TSH will be due early March. (5) CAD (coronary artery disease): Assessment and plan: - History of CAD - No complaints of active chest pain - Continue home statin, anticoagulation 02/02/25 Cardiology consultation reviewed 01/27/[address] Brown: (2) H/O mitral valve replacement with mechanical valve: Status: Acute Assessment and plan: Patient has a mechanical mitral valve replacement. Unfortunately she cannot take one of the newer anticoagulants given this history. She needs to be murray ged back to warfarin (3) A-fib: Assessment and plan: Heart rate is acceptable. Because of her mechanical valve, she needs to be on warfarin for stroke prevention (6) Type 2 diabetes mellitus: Assessment and plan: - Continue Jardiance, though with CKD I'm not sure it is doing much for her blood sugar. 10mg should be just as good for CV effect. - sugars high here, started low dose glargine in 01/25, increased slightly 01/26 to 12 units, then 18 with prednisone. Sugars still high, on prednisone. Stopping this after today, so we may need to back down again on insulin. - Sliding scale insulin, heart healthy carb consistent diet (7) Elevated transaminase level: Status: Acute Assessment and plan: related to CHF. amiodarone also a risk, but much imrpoved on repeat suggesting this was CHF. 02/03/25 Resolving (8) Wheezing: Status: Acute Assessment and plan: No clear diagnosis of Asthma/COPD, but she reports asthma and has been treated with ICS/LABA. Imaging showed some airway bronchiectasis. She did seem to have responded to prednisone, but now wheeze returned a/w more fluid, so I don't thi nk this is asthma/COPD. Stop the prednisone. Can still use bronchodilators prn. (9) Mitral valve stenosis: Assessment and plan: Pt does have a history of mechanical mitral valve and therefore will need lifetime anticoagulation. Depending on the valve type and other factors the INR goal is 3 to 3.5. Eliquis has been held and the pt is on warfarin but is not at goal. Pt will be bridged with lovenox in the interim 1mg/kg sq bid. 01/31/25 Latest INR shows a value of 2.6 which is below goal. Will c/w coumadin at 7.5 today and deescalate tomorrow if INR continues to increase. Would appear that pt INR goal is unknown at this point. Will review chart to see if any info about type of valve can be found 02/01/25 INR at 3.7 Restarted 5mg po daily. Stopped lovenox 02/02/25 INR currently 5.3. Decreased coumadin to 5mg daily and recheck in am 02/03/25 INR does remain elevated at 5.0 this morning. I did decrease her Coumadin to 2.5 mg daily. I do not want to stop her Coumadin as she has been quite labile in regards to her INRs. Will decrease her doses until we get a baseline on her INR at a specific Coumadin level. It appears that her home dose is 2.5 mg on Friday and and 5 mg on each of the other days. (10) Hypokalemia: Status: Acute Assessment and plan: relpace with oral meds. Pt is on lasix and aldactone. Recheck labs in am 02/03/25 Resolved Subjective Subjective Interval history since last seen: Pt seen and examined in her room this am. POC d/w pt/bedside nurse/MDR. Pt states that she did sleep better last night. Exam Narrative Exam Narrative: HEENT-NCAT MMM EOMI PERRLA NECK-NO LAD NO JVD CV-IR/IR / ZHANE PULM-BILAT WHEEZE NO AMU SPEAKS IN COMPLETE SENTENCES ABD-SNTNDBSA EXT-2PLUS KANWAL BILAT TO MID CALVES Objective Last Vital Signs Temp 36.0 C L 02/03/25 10:54 Pulse 83 02/03/25 10:54 Resp 16 02/03/25 10:54 BP 78/52 L 02/03/25 10:54 Pulse Ox 97 02/03/25 10:54 Laboratory Results - last 24 hr 02/02/25 02/03/25 13:02 06:05 WBC 8.75 RBC 4.51 Hgb 12.0 Hct 38.4 MCV 85 MCH 26.6 L MCHC 31.3 L RDW 16.6 H Plt Count 302 MPV 9.9 Immature Gran % 0.9 Neutrophils % 85.9 Lymphocytes % 2.1 Monocytes % 8.2 Eosinophils % 2.6 Basophils % 0.3 Nucleated RBC % 0.2 Absolute Neutrophils 7.51 H Absolute Lymphocytes 0.18 L Absolute Monocytes 0.72 Absolute Eosinophils 0.23 Absolute Basophils 0.03 PT 45.4 H 44.7 H INR 5.1 H* 5.0 H* Sodium 132 L Potassium 4.1 Chloride 98 Carbon Dioxide 30.4 Anion Gap 3.6 BUN 51 H Creatinine 1.5 H Est GFR (CKD-EPI 2020) 33.94 Glucose 68 L Calcium 8.4 L Total Bilirubin 0.7 AST 23 ALT 23 Alkaline Phosphatase 146 H Total Protein 6.1 L Albumin 2.8 L Time Spent with Patient Time Spent with Patient: 25-34 minutes Time was spent: preparing to see the patient(eg.review tests), obtaining and/or reviewing separately otained hiistory, ordering medications,tests, procedures, referring, communicating with other health behavioral health care coordinator, indepentently interpreting results, counseling the patient and care coordination
[2025-02-03 14:14] LABS: Prothrombin Time 42.3 sec (9.1-11.1)
[2025-02-03 14:18] LABS: INR 4.7 (0.9-1.1)
[2025-02-03] MEDS: Midodrine 2.5 MG TAB PO ×2 (14:23→19:39)
[2025-02-03] MEDS: Furosemide 40 MG TAB PO (16:26)
--- NOTE | 2025-02-03 18:07 | CHAPLAIN ---
I had a brief visit with Sushma today. She has just been all tucked in by her nurse and was ready to nap. She appreciated the prayer shawl I gave her.
[2025-02-03] MEDS: Atorvastatin 10 MG TAB PO (19:39)
[2025-02-03] MEDS: Zolpidem 5 MG TAB PO (21:59)
[2025-02-03] MEDS: Insulin Glargine 300 UNITS/3 ML PEN 10 UNITS SC (22:01)
[2025-02-04] VITALS (13 sets, daily range): BP systolic 53–94; BP diastolic 33–53; PULSE 56–105; RESP 16–23; TEMP 36.5–37.3; O2SAT 91–98
[2025-02-04] MEDS: Levothyroxine 50 MCG TAB PO (06:21)
[2025-02-04 07:15] LABS: Abs Immature Grans 0.12 10^3/uL (0.0-0.06); HCT 35.1 % (36.0-46.0); HGB 10.7 g/dL (11.2-15.7); Immature Grans % 1.5 %; MCH 25.7 pg (27.0-33.0); MCHC 30.5 % (32.0-36.0); MCV 84 fL (80-95); MPV 9.9 fL (8.0-11.0); Platelet Count 282 10^3/uL (130-400); RBC 4.16 10^6/uL (3.93-5.22); RDW 17.1 % (11.7-14.6); RDW-SD 51.6 fL; WBC 7.99 10^3/uL (4.4-10.8)
[2025-02-04 07:28] LABS: Prothrombin Time 41.1 sec (9.1-11.1)
[2025-02-04 07:35] LABS: ALT 26 U/L (14-59); AST 23 U/L (15-37); Albumin 2.8 g/dL (3.4-5.0); Alkaline Phosphatase 131 U/L (46-116); Anion Gap 6.4 mmol/L (3-11); BUN 49 mg/dL (7-18); Bilirubin, Total 0.8 mg/dL (0.2-1.0); CO2 29.6 mmol/L (21.0-32.0); Calcium 8.1 mg/dL (8.5-10.1); Chloride 96 mmol/L (98-107); Estimated GFR 33.94 (mL/min/1.73m2); Glucose 129 mg/dL (74-106); Potassium 5.0 mmol/L (3.5-5.1); Sodium 132 mmol/L (136-145); Total Protein 5.9 g/dL (6.4-8.2)
[2025-02-04 07:38] LABS: INR 4.6 (0.9-1.1)
--- NOTE | 2025-02-04 08:14 | CMPROGNOTE_ITS ---
Date of service: 02/04/25 Time of Service: 08:14 Care Management Progress Note Progress Note Text Progress Note Text: Sushma was sitting up in a chair when CM met with her. She had just walked in her room and was a little short of breath. Sushma stated that she still is not feeling well. Her blood pressure is a bit low and her medications are still being adjusted. CM spoke with [facility] again today and they are hopeful that they will be able to offer her a bed early next week. Discharge Potential Discharge Needs: PCP F/U Appt Anticipated Barriers to Discharge: None Identified Patient/Family Education Needs: Review discharge instructions, discuss Ask Me Three Transportation: Private vehicle Plan: Anticipate Sushma will be transferred to a SNF for short term rehab prior to returning home. She will follow up with the facility providers and plan of care and transport via RCT. A referral was sent to [facility] and they are hopeful they can make a bed offer early next week. That was Sushma's first choice and she is pleased that it will likely happen soon. CM will follow and continue to support discharge planning efforts. Social Determinants of Health Screening Social Determinants of health last assessed in clinic: 02/04/25 Will the Patient Participate in the Screening?: Yes Do you worry about having a steady place to live?: no Problems where you live: pests such as bugs, ants or mice In the past 12 months, have you had to go without electric, gas, oil or water in your home?: no 1. Within the past 12 months, we worried whether our food would run out before we got money to buy more.: Never true 2. Within the past 12 months, the food we bought just didn't last and we didn't have money to get more.: Never true Has lack of transportation kept you from medical appointments or from doing things needed for daily living?: no Has anyone in your life made you feel unsafe or unsupported?: no How hard is it for you to pay for the very basics like food, housing, medical ca re, and heating? Would you say it is:: Not hard at all Do you want help finding or keeping work or a job?: I do not need or want help If for any reason you need help with day-to-day activities such as bathing, preparing meals, shopping, managing finances, etc., do you get the help you need?: I don?t need any help How often do you feel lonely or isolated from those around you?: Never Do you speak a language other than Spanish at home?: No Comments: bedbugs Health Related Social Needs Health related social needs: inadequate housing (Z59.1) Health related social needs details: bed bugs
--- NOTE | 2025-02-04 09:09 | PT.INTREAT ---
PT Notes Visit Reasons: Acute Exacerbation of CHP Inpatient Physical Therapy Treatment Note [facility] Date: 02/04/25 SUBJECTIVE: Sushma states that she is very tired and she was up every hour during the night to urinate ; her legs are painful. She is willing to walk in the room. OBJECTIVE: pt seated on recliner with feet on floor having just finished her breakfast. BLE Edema to trunk expiratory wheezes noted ? PAIN:c/o B LE pain VITALS: ?monitored by nsg and via telemetry Wt 70.1kg Therapeutic Activities (58578q1): Direct one-on-one instruction in dynamic activities to improve functional performance. ? BED MOBILITY/TRANSFERS? Sit-supine: min assist with LE. ? Sit-stand: min A from chair x 1 trial then CGA?x3 trials ?from chair and commode ? Stand-sit: CGA? x 3 trials? surface to surface: CGA with FWW Provided skilled cues and instruction on performance and technique throughout. GAIT? Assistive Device: FWW ? Weight bearing: full Assist: CGA ? Distance:? 14 feet x 1 10 feet x 1 ? Deviation: slow short stride, poor foot clearance ? ASSESSMENT:? pt with decline in activity tolerance today with increased expiratory wheezing noted with functional tasks. Pt unable to tolerate ROMexercises to BLE this session d/t pain. Pt requires increased time to perform all functional mobility d/t dyspnea, pain and fatigue. Pt limited by BLE edema to her waist. PLAN: will continue to work on her strength and functional mobility to tolerance following PT POC. TREATMENT CODE/TIME: 73080c3/ [id number] DISCHARGE RECOMMENDATION: SNF
[2025-02-04] MEDS: Empaglifozin 10 MG TAB PO (09:34)
[2025-02-04] MEDS: Spironolactone 25 MG TAB PO (09:34)
[2025-02-04] MEDS: Midodrine 2.5 MG TAB PO ×2 (09:34→20:37)
[2025-02-04] MEDS: Potassium Chloride 20 MEQ TABCR PO ×2 (09:34→20:37)
[2025-02-04] MEDS: Amiodarone 200 MG TAB PO (09:34)
[2025-02-04] MEDS: Furosemide 40 MG TAB PO ×2 (09:35→18:48)
[2025-02-04] MEDS: Ferrous Sulfate 325 MG TAB PO ×2 (09:35→20:37)
[2025-02-04] MEDS: Insulin Aspart 300 UNITS/3 ML PEN SC ×2 (09:36→18:47)
[2025-02-04] MEDS: Budesonide/Formoterol 160/4.5 6 GM 60 PUFF INH IH ×2 (10:10→20:03)
--- NOTE | 2025-02-04 11:45 | W.PM.PROGNOT ---
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 - Was responding to IV furosemide, but weight up on oral torsemide and edema worse - Resumed IV furosemide 01/27. BPs soft but seemed to be imrpoving with diruesis. - Cardiology consult 01/27 agrees she need more diuresis, appreciate input. - Continue empagliflozin but cut to HF dose. Spironolactone held 01/23, resumed 01/27 at low dose as should help duiresis, increased back to 25mg 01/28. - weight again increasing, started on midodrine 02/03 to allow for more aggressive diuresis with 20mg PO bid laisx -if UOP not improved will increased midodrine and lasix AM 02/05 - also palliative care consult given multiple recent admissions and poor QOL since prolonged admission this Winter/spring, made DNR/DNI (2) Acute kidney injury superimposed on CKD: Status: Acute Assessment and plan: - History of CKD, Cr 1.8 on admission -down to 1.1 as of AM 01/29 - back up to 1.5 as of AM 02/04 -f/u AM BMP (3) A-fib: Assessment and plan: -Currently rate controlled -Continue amiodarone. -She has mechanical mitral valve, back on warfarin after elevated INR on admission -warfarin dosed 7.5, INR decreasing, down to 4.6 as of AM 02/04 (5.3 on 02/02) (4) Hypothyroid: Status: Chronic Assessment and plan: -TSH still high, related to amiodarone. -With fatigue, increased levothyroxine to 50mcg from 37mcg. -Repeat TSH will be due early March. (5) CAD (coronary artery disease): Assessment and plan: - History of CAD - No complaints of active chest pain - Continue home statin, anticoagulation (6) Type 2 diabetes mellitus: Assessment and plan: - Continue Jardiance - sugars high here, started low dose glargine in 01/25, increased slightly 01/26 to 12 units, then 18 with prednisone which has since been discontinued - Sliding scale insulin, heart healthy carb consistent diet (7) Elevated transaminase level: Status: Acute Assessment and plan: -related to CHF. -amiodarone also a risk, but much imrpoved on repeat suggesting this was CHF. -LFTs improved as of 02/04 (8) Wheezing: Status: Acute Assessment and plan: -No clear diagnosis of Asthma/COPD, but she reports asthma and has been treated with ICS/LABA. -Imaging showed some airway bronchiectasis. -was started on prednisone, but wheezing worsening with increased fluid so prednisone has since been discontinued (9) Mitral valve stenosis: Assessment and plan: -Pt does have a history of mechanical mitral valve and therefore will need lifetime anticoagulation. -Depending on the valve type and other factors the INR goal is 3 to 3.5. -INR improving as noted above Subjective Subjective Interval history since last seen: Patient states that she is doing well today though she feels a little short of breath with ambulation. Otherwise she has no other complaints or concerns at this time. Exam Narrative Exam Narrative: Fatigued appearing older female sitting up in the chair no acute distress, ANO x 4, heart regular rhythm, lungs clear to auscultation bilaterally, abdomen soft, nontender, nondistended, significant bilateral lower extremity edema to the mid thighs Objective Last Vital Signs Temp 97.9 F 02/04/25 11:32 Pulse 101 H 02/04/25 11:32 Resp 17 02/04/25 11:32 BP 53/33 L 02/04/25 11:32 Pulse Ox 97 02/04/25 11:32 Laboratory Results - last 24 hr 02/03/25 02/04/25 13:38 06:20 WBC 7.99 RBC 4.16 Hgb 10.7 L Hct 35.1 L MCV 84 MCH 25.7 L MCHC 30.5 L RDW 17.1 H Plt Count 282 MPV 9.9 Immature Gran % 1.5 Neutrophils % 82.9 Lymphocytes % 2.5 Monocytes % 9.8 Eosinophils % 3.0 Basophils % 0.3 Nucleated RBC % 0.0 Absolute Neutrophils 6.63 Absolute Lymphocytes 0.20 L Absolute Monocytes 0.78 Absolute Eosinophils 0.24 Absolute Basophils 0.02 PT 42.3 H 41.1 H INR 4.7 H* 4.6 H* Sodium 132 L Potassium 5.0 Chloride 96 L Carbon Dioxide 29.6 Anion Gap 6.4 BUN 49 H Creatinine 1.5 H Est GFR (CKD-EPI 2020) 33.94 Glucose 129 H Calcium 8.1 L Total Bilirubin 0.8 AST 23 ALT 26 Alkaline Phosphatase 131 H Total Protein 5.9 L Albumin 2.8 L Time Spent with Patient Time Spent with Patient: >50 minutes Time was spent: preparing to see the patient(eg.review tests), obtaining and/or reviewing separately otained hiistory, ordering medications,tests, procedures, referring, communicating with other health day care assistant, indepentently interpreting results, counseling the patient and care coordination
--- NOTE | 2025-02-04 15:30 | PTTR_ITS ---
PT Notes Visit Reasons: Acute Exacerbation of CHP Date: 02/04/25 SUBJECTIVE: pt in bed when approached for therapy this afternoon, reports feeling very exhausted, pt wheezing at rest, BLE swelling. agreed to participating as log as she doesn't have to do a lot. OBJECTIVE: BLE Edema to trunk, expiratory wheezes noted ? PAIN: BLE VITALS: monitored by nsg and via telemetry Therapeutic Activities (84731f2): Direct one-on-one instruction in dynamic activities to improve functional performance. ? BED MOBILITY/TRANSFERS? Bed mobility L/R: min A Supine to EOB: min A EOB to supine: min A Sit to stand: min A Stand to sit: CGA ? Provided skilled cues and instruction on performance and technique throughout. GAIT? Assistive Device: FWW ? Weight bearing: full Assist: CGA ? Distance:? 10 feet x 1 10 feet x 1 ? Deviation: slow short stride, poor foot clearance ? ASSESSMENT:? Pt able to complete stand pivot transfer going from EOB to commode with min A, static sitting on the EOB 5mins unsupported, pt reports fatigue after gait training requesting to go back in bed to rest. PLAN: will continue to work on her strength and functional mobility to [place] following PT POC. TREATMENT CODE/TIME: 22826p9/ [id number] 25mins (3:05-3:30pm) DISCHARGE RECOMMENDATION: SNF
--- NOTE | 2025-02-04 15:35 | PCPN_ITS ---
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 - She has mechanical mitral valve, back on warfarin (4) Hypothyroid: Status: Chronic Assessment and plan: TSH still high, related to amiodarone. With fatigue, increased levothyroxine to 50mcg from 37mcg (5) CAD (coronary artery disease): Assessment and plan: - History of CAD - No complaints of active chest pain - Continue home statin, anticoagulation (6) Type 2 diabetes mellitus: (7) Elevated transaminase level: Status: Acute Assessment and plan: related to CHF. amiodarone also a risk, but much imrpoved on repeat suggesting this was CHF. (8) Wheezing: Status: Acute (9) Palliative care patient: Status: Acute Assessment and plan: Sushma was seen for Palliative f/u. At this point, she is planning on discharge to [facility] next week for STR. She is very fatigued and weak. She is dependent on others for care. Her LVEF remains decreased at 25-30%. She would be eligible for hospice if this is in line with her GOC. Palliative will f/u with her at the rehab in the next couple of weeks. (10) Advanced care planning/counseling discussion: Status: Acute Assessment and plan: Sushma is a DNR/DNI, COLST on file. Her son, Art Jones is her HCA. She is planning on discharge to [facility] next week for STR. She feels she will likely end up staying there, she cannot see herself going home at this point. She is very clear that she would not want to transfer to a tertiary care facility at any point. Palliative to f/u within the next 1-2 weeks. Subjective Subjective Interval history since last seen: Sushma was seen for Palliative f/u. She was alone at the time of the visit. She was lying in bed. She reports that she was up in the chair but kept falling asleep so she decided to get into bed. She feels wheezy and SOB. She reports she is eating better. She denies pain. She reports redness on her sacrum that they are applying barrier cream to. Reviewed GOC. She is weak and fatigued. Her most recent echo shows LVEF of 25- 30%. She reports that her current plan is discharge to [facility] for rehab. She would like to return home but she states she has a feeling that she may end up staying at the SNF indefinitely. Reviewed that she qualifies for hospice so if her goals change, she could transition her care to comfort focused care at any time. Exam Narrative Exam Narrative: General: very pleasant, elderly female, lying in hospital bed with HOB elevated. She is awake, alert, oriented. She appears fatigued. HEENT: normocephalic, atraumatic, EOMI, mm slightly dry Neck: supple Respiratory: respirations appear even and unlabored at rest. Wearing O2 via nc. Ext: moves all 4 extremities freely, + significant edema to BLEs. Objective Last Vital Signs Temp 37.3 C 02/04/25 11:49 Pulse 56 L 02/04/25 11:49 Resp 23 02/04/25 11:49 BP 78/52 L 02/04/25 11:49 Pulse Ox 97 02/04/25 11:49 Laboratory Results - last 24 hr 02/04/25 02/04/25 06:20 13:00 WBC 7.99 RBC 4.16 Hgb 10.7 L Hct 35.1 L MCV 84 MCH 25.7 L MCHC 30.5 L RDW 17.1 H Plt Count 282 MPV 9.9 Immature Gran % 1.5 Neutrophils % 82.9 Lymphocytes % 2.5 Monocytes % 9.8 Eosinophils % 3.0 Basophils % 0.3 Nucleated RBC % 0.0 Absolute Neutrophils 6.63 Absolute Lymphocytes 0.20 L Absolute Monocytes 0.78 Absolute Eosinophils 0.24 Absolute Basophils 0.02 PT 41.1 H Cancelled INR 4.6 H* Cancelled Sodium 132 L Potassium 5.0 Chloride 96 L Carbon Dioxide 29.6 Anion Gap 6.4 BUN 49 H Creatinine 1.5 H Est GFR (CKD-EPI 2020) 33.94 Glucose 129 H Calcium 8.1 L Total Bilirubin 0.8 AST 23 ALT 26 Alkaline Phosphatase 131 H Total Protein 5.9 L Albumin 2.8 L
[2025-02-04] MEDS: Acetaminophen 325 MG TAB 650 MG PO (20:35)
[2025-02-04] MEDS: Atorvastatin 10 MG TAB PO (20:37)
[2025-02-04] MEDS: Insulin Glargine 300 UNITS/3 ML PEN 10 UNITS SC (20:39)
[2025-02-04] MEDS: Zolpidem 5 MG TAB PO (20:39)
[2025-02-04] MEDS: Albuterol/Ipratropium 3 ML UPD VIAL IH (21:25)
[2025-02-05] VITALS (10 sets, daily range): BP systolic 94–115; BP diastolic 50–65; PULSE 65–108; RESP 15–24; TEMP 36.6–37.4; O2SAT 95–100
[2025-02-05] MEDS: Acetaminophen 325 MG TAB 650 MG PO (02:13)
[2025-02-05] MEDS: Levothyroxine 50 MCG TAB PO (05:46)
[2025-02-05 07:24] LABS: INR 3.4 (0.9-1.1); Prothrombin Time 31.3 sec (9.1-11.1)
[2025-02-05 07:30] LABS: ALT 34 U/L (14-59); AST 29 U/L (15-37); Albumin 3.1 g/dL (3.4-5.0); Alkaline Phosphatase 174 U/L (46-116); Anion Gap 5.8 mmol/L (3-11); BUN 53 mg/dL (7-18); Bilirubin, Total 0.8 mg/dL (0.2-1.0); CO2 29.2 mmol/L (21.0-32.0); Calcium 8.2 mg/dL (8.5-10.1); Chloride 95 mmol/L (98-107); Estimated GFR 33.94 (mL/min/1.73m2); Glucose 128 mg/dL (74-106); Potassium 5.3 mmol/L (3.5-5.1); Sodium 130 mmol/L (136-145); Total Protein 6.6 g/dL (6.4-8.2)
[2025-02-05] MEDS: Budesonide/Formoterol 160/4.5 6 GM 60 PUFF INH IH ×2 (07:37→20:09)
[2025-02-05] MEDS: Furosemide 40 MG TAB PO ×2 (09:11→15:48)
[2025-02-05] MEDS: Ferrous Sulfate 325 MG TAB PO ×2 (09:11→20:25)
[2025-02-05] MEDS: Spironolactone 25 MG TAB PO (09:11)
[2025-02-05] MEDS: Midodrine 2.5 MG TAB PO ×3 (09:11→20:24)
[2025-02-05] MEDS: Empaglifozin 10 MG TAB PO (09:11)
[2025-02-05] MEDS: Potassium Chloride 20 MEQ TABCR PO ×2 (09:11→20:24)
[2025-02-05] MEDS: Amiodarone 200 MG TAB PO (09:12)
[2025-02-05] MEDS: Insulin Aspart 300 UNITS/3 ML PEN SC ×3 (09:19→17:38)
--- NOTE | 2025-02-05 11:40 | W.PM.PROGNOT ---
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 - Was responding to IV furosemide, but weight up on oral torsemide and edema worse - Resumed IV furosemide 01/27. BPs soft but seemed to be imrpoving with diruesis. - Cardiology consult 01/27 agrees she need more diuresis, appreciate input. - Continue empagliflozin but cut to HF dose. Spironolactone held 01/23, resumed 01/27 at low dose as should help duiresis, increased back to 25mg 01/28. - weight again increasing, started on midodrine 02/03 to allow for more aggressive diuresis with 20mg PO bid laisx - Patient had 1600 mL of urine output over the last 24 hours, but also had significant increase in fluid intake of 2.4 L; will continue midodrine and Lasix dose, but patient is now on 1200 mL fluid restriction - also palliative care consult given multiple recent admissions and poor QOL since prolonged admission this Winter/spring, made DNR/DNI (2) Acute kidney injury superimposed on CKD: Status: Acute Assessment and plan: - History of CKD, Cr 1.8 on admission -down to 1.1 as of AM 01/29 - back up to 1.5 as of AM 02/04 -f/u AM BMP (3) A-fib: Assessment and plan: -Currently rate controlled -Continue amiodarone. -She has mechanical mitral valve, back on warfarin after elevated INR on admission -warfarin dosed 7.5, INR decreasing, down to 4.6 as of AM 02/04 (5.3 on 02/02) (4) Hypothyroid: Status: Chronic Assessment and plan: -TSH still high, related to amiodarone. -With fatigue, increased levothyroxine to 50mcg from 37mcg. -Repeat TSH will be due early March. (5) CAD (coronary artery disease): Assessment and plan: - History of CAD - No complaints of active chest pain - Continue home statin, anticoagulation (6) Type 2 diabetes mellitus: Assessment and plan: - Continue Jardiance - sugars high here, started low dose glargine in 01/25, increased slightly 01/26 to 12 units, then 18 with prednisone which has since been discontinued - Sliding scale insulin, heart healthy carb consistent diet (7) Elevated transaminase level: Status: Acute Assessment and plan: -related to CHF. -amiodarone also a risk, but much imrpoved on repeat suggesting this was CHF. -LFTs improved as of 02/04 (8) Wheezing: Status: Acute Assessment and plan: -No clear diagnosis of Asthma/COPD, but she reports asthma and has been treated with ICS/LABA. -Imaging showed some airway bronchiectasis. -was started on prednisone, but wheezing worsening with increased fluid so prednisone has since been discontinued (9) Mitral valve stenosis: Assessment and plan: -Pt does have a history of mechanical mitral valve and therefore will need lifetime anticoagulation. -Depending on the valve type and other factors the INR goal is 3 to 3.5. -INR improving as noted above Subjective Subjective Interval history since last seen: Patient states that she is doing well today and has no other complaints or concerns. Exam Narrative Exam Narrative: Fatigued appearing older female sitting up in the chair no acute distress, ANO x 4, heart regular rhythm, lungs clear to auscultation bilaterally, abdomen soft, nontender, nondistended, significant but improved bilateral lower extremity edema to the mid thighs Objective Last Vital Signs Temp 98.2 F 02/05/25 05:48 Pulse 80 02/05/25 05:48 Resp 15 02/05/25 05:48 BP 110/62 02/05/25 05:48 Pulse Ox 98 02/05/25 05:48 Laboratory Results - last 24 hr 02/04/25 02/05/25 13:00 06:50 PT Cancelled 31.3 H INR Cancelled 3.4 H Sodium 130 L Potassium 5.3 H Chloride 95 L Carbon Dioxide 29.2 Anion Gap 5.8 BUN 53 H Creatinine 1.5 H Est GFR (CKD-EPI 2020) 33.94 Glucose 128 H Calcium 8.2 L Total Bilirubin 0.8 AST 29 ALT 34 Alkaline Phosphatase 174 H Total Protein 6.6 Albumin 3.1 L Time Spent with Patient Time Spent with Patient: >50 minutes Time was spent: preparing to see the patient(eg.review tests), obtaining and/or reviewing separately otained hiistory, ordering medications,tests, procedures, referring, communicating with other health memory care program resident, indepentently interpreting results, counseling the patient and care coordination
[2025-02-05] MEDS: Atorvastatin 10 MG TAB PO (20:23)
[2025-02-05] MEDS: Insulin Glargine 300 UNITS/3 ML PEN 10 UNITS SC (20:25)
[2025-02-05] MEDS: Zolpidem 5 MG TAB PO (20:29)
[2025-02-05] MEDS: Albuterol/Ipratropium 3 ML UPD VIAL IH (22:20)
[2025-02-06 02:47] VITALS: BP 92/55; PULSE 100; RESP 22; TEMP 37.2; O2SAT 94
[2025-02-06] MEDS: Levothyroxine 50 MCG TAB PO (05:56)
[2025-02-06] MEDS: Acetaminophen 325 MG TAB 650 MG PO (06:17)
[2025-02-06 07:12] LABS: INR 2.7 (0.9-1.1); Prothrombin Time 25.6 sec (9.1-11.1)
[2025-02-06 07:35] VITALS: BP 107/56; PULSE 77; RESP 16; TEMP 36.6; O2SAT 94
[2025-02-06] MEDS: Empaglifozin 10 MG TAB PO (08:05)
[2025-02-06] MEDS: Furosemide 40 MG TAB PO ×2 (08:05→16:27)
[2025-02-06] MEDS: Spironolactone 25 MG TAB PO (08:05)
[2025-02-06] MEDS: Amiodarone 200 MG TAB PO (08:06)
[2025-02-06] MEDS: Ferrous Sulfate 325 MG TAB PO ×2 (08:06→19:54)
[2025-02-06] MEDS: Midodrine 2.5 MG TAB PO ×3 (08:06→19:54)
[2025-02-06] MEDS: Fluticasone NASAL SPRAY 16 GM BTL NS (08:07)
[2025-02-06] MEDS: Insulin Aspart 300 UNITS/3 ML PEN SC ×4 (08:09→12:16)
[2025-02-06] MEDS: Budesonide/Formoterol 160/4.5 6 GM 60 PUFF INH IH ×2 (08:36→20:02)
--- NOTE | 2025-02-06 08:53 | W.PM.PROGNOT ---
Date of Service Date of service: 02/06/25 Time of Service: 08:53 Assessment and Plan Assessment and plan (1) Acute heart failure with reduced ejection fraction (HFrEF, <= 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: Status: Acute Assessment and plan: - History of HFrEF noted after [place] with prolonged hospitalization in August 2024, admitted here for same in September - Echocardiogram repeated, still low LVEF 25%, severe TR, no change, IVC still plethoric. - Was responding to IV furosemide, but weight up on oral torsemide and edema worse - Resumed IV furosemide 01/27. BPs soft but seemed to be imrpoving with diruesis. - Cardiology consult 01/27 agrees she need more diuresis, appreciate input. - Continue empagliflozin but cut to HF dose. Spironolactone held 01/23, resumed 01/27 at low dose as should help duiresis, increased back to 25mg 01/28. - weight again increasing, started on midodrine 02/03 to allow for more aggressive diuresis with 20mg PO bid laisx - As of the morning of 02/06/2025 patient continues to have 2 days of good urine output, and overall net negative with fluid restriction in place - also palliative care consult given multiple recent admissions and poor QOL since prolonged admission this Winter/spring, made DNR/DNI (2) Acute kidney injury superimposed on CKD: Status: Acute Assessment and plan: - History of CKD, Cr 1.8 on admission -down to 1.1 as of AM 01/29 - back up to 1.5 as of AM 02/04 -f/u AM BMP (3) A-fib: Assessment and plan: -Currently rate controlled -Continue amiodarone. -She has mechanical mitral valve, back on warfarin after elevated INR on admission -warfarin dosed 7.5, INR decreasing, down to 4.6 as of AM 02/04 (5.3 on 02/02) (4) Hypothyroid: Status: Chronic Assessment and plan: -TSH still high, related to amiodarone. -With fatigue, increased levothyroxine to 50mcg from 37mcg. -Repeat TSH will be due early March. (5) CAD (coronary artery disease): Assessment and plan: - History of CAD - No complaints of active chest pain - Continue home statin, anticoagulation (6) Type 2 diabetes mellitus: Assessment and plan: - Continue Jardiance - sugars high here, started low dose glargine in 01/25, increased slightly 01/26 to 12 units, then 18 with prednisone which has since been discontinued - Sliding scale insulin, heart healthy carb consistent diet (7) Elevated transaminase level: Status: Acute Assessment and plan: -related to CHF. -amiodarone also a risk, but much imrpoved on repeat suggesting this was CHF. -LFTs improved as of 02/04 (8) Wheezing: Status: Acute Assessment and plan: -No clear diagnosis of Asthma/COPD, but she reports asthma and has been treated with ICS/LABA. -Imaging showed some airway bronchiectasis. -was started on prednisone, but wheezing worsening with increased fluid so prednisone has since been discontinued (9) Mitral valve stenosis: Assessment and plan: -Pt does have a history of mechanical mitral valve and therefore will need lifetime anticoagulation. -Depending on the valve type and other factors the INR goal is 3 to 3.5. -INR improving as noted above Subjective Subjective Interval history since last seen: Patient states that she feels well this morning and is encouraged that her swelling is improving. Exam Narrative Exam Narrative: Fatigued appearing older female sitting up in the chair no acute distress, ANO x 4, heart regular rhythm, lungs clear to auscultation bilaterally, abdomen soft, nontender, nondistended, bilateral lower extremities wrapped, though appeared to have improved edema as compared to previous days Objective Last Vital Signs Temp 97.9 F 02/06/25 07:35 Pulse 77 02/06/25 07:35 Resp 16 02/06/25 07:35 BP 107/56 L 02/06/25 07:35 Pulse Ox 94 02/06/25 07:35 Laboratory Results - last 24 hr 02/06/25 06:40 PT 25.6 H INR 2.7 H Time Spent with Patient Time Spent with Patient: >50 minutes Time was spent: preparing to see the patient(eg.review tests), obtaining and/or reviewing separately otained hiistory, ordering medications,tests, procedures, referring, communicating with other health child care center administrator, indepentently interpreting results, counseling the patient and care coordination
[2025-02-06 11:51] VITALS: BP 110/65; PULSE 69; RESP 16; TEMP 36.5; O2SAT 96
--- NOTE | 2025-02-06 12:23 | PT.INTREAT ---
PT Notes Visit Reasons: Acute Exacerbation of CHP Inpatient Physical Therapy Treatment Note [facility] Date: 02/06/25 PRECAUTIONS: fall precautions SUBJECTIVE: I'm extra tired today. OBJECTIVE: ? PAIN: No pain complaints today VITALS: monitored by nursing Gait Training ([id number]): Direct one-on-one instruction and skilled instruction in: [x] employing an assistive device [x] movement sequencing [x] turning and movement with proper form [x] Provided verbal cues for equipment management and technique [x] Provided instruction in gait pattern [x] Patient education regarding pacing and breathing techniques to maximize activity tolerance? GAIT? Assistive Device: RW ? Weight bearing: FWB Assist: CGA ? Distance:? 30 ft ? Deviation: required standing break at 15 ft for about 1 min, overall slow gait speed ? ASSESSMENT:? Pt was able to progress some with her ambulatory status as she was able to go a farther distance and without a wheelchair follow. She seems to be gaining confidence. She was encouraged to take standing breaks when she feels fatigued. She will continue to benefit from PT services to progress her as tolerated. Living alone will require her to go to a SNF for continued rehabilitation at time of d/c. PLAN: Continue ambulatory progression TREATMENT CODE/TIME: Gait x1 (21382) - 20 min DISCHARGE RECOMMENDATION: SNF for continued rehabilitation
[2025-02-06 16:05] VITALS: PULSE 89; RESP 20; TEMP 37; O2SAT 99
[2025-02-06 19:19] VITALS: BP 102/59; PULSE 90; RESP 22; TEMP 36.6; O2SAT 97
[2025-02-06] MEDS: Insulin Glargine 300 UNITS/3 ML PEN 10 UNITS SC (19:53)
[2025-02-06] MEDS: Atorvastatin 10 MG TAB PO (19:54)
[2025-02-06] MEDS: Zolpidem 5 MG TAB PO (19:54)
[2025-02-06 22:22] VITALS: BP 101/55; PULSE 94; RESP 24; TEMP 37.1; O2SAT 97
[2025-02-06] MEDS: Albuterol 2.5 MG/3 ML INH SOLN VIAL IH (22:32)
[2025-02-07] MEDS: Acetaminophen 325 MG TAB 650 MG PO ×2 (00:27→04:50)
[2025-02-07 02:35] VITALS: BP 104/53; PULSE 91; RESP 22; TEMP 36.5; O2SAT 91
[2025-02-07] MEDS: Levothyroxine 50 MCG TAB PO (04:59)
[2025-02-07 06:38] LABS: Anion Gap 6.1 mmol/L (3-11); BUN 58 mg/dL (7-18); CO2 27.9 mmol/L (21.0-32.0); Calcium 8.4 mg/dL (8.5-10.1); Chloride 98 mmol/L (98-107); Estimated GFR 31.41 (mL/min/1.73m2); Glucose 148 mg/dL (74-106); Potassium 4.7 mmol/L (3.5-5.1); Sodium 132 mmol/L (136-145)
[2025-02-07 06:39] LABS: INR 2.6 (0.9-1.1); Prothrombin Time 24.1 sec (9.1-11.1)
[2025-02-07 07:31] VITALS: BP 99/83; PULSE 78; RESP 16; TEMP 36.4; O2SAT 100
[2025-02-07 08:30] VITALS: BP 104/58
[2025-02-07] MEDS: Budesonide/Formoterol 160/4.5 6 GM 60 PUFF INH IH (08:32)
[2025-02-07] MEDS: Spironolactone 25 MG TAB PO (09:00)
[2025-02-07] MEDS: Midodrine 2.5 MG TAB PO (09:02)
[2025-02-07] MEDS: Furosemide 40 MG TAB PO (09:05)
[2025-02-07] MEDS: Ferrous Sulfate 325 MG TAB PO (09:06)
[2025-02-07] MEDS: Empaglifozin 10 MG TAB PO (09:06)
[2025-02-07] MEDS: Amiodarone 200 MG TAB PO (09:18)
[2025-02-07] MEDS: Insulin Aspart 300 UNITS/3 ML PEN SC ×2 (09:19→09:20)
[2025-02-07] MEDS: Fluticasone NASAL SPRAY 16 GM BTL NS (09:22)
[2025-02-07] MEDS: Potassium Chloride 20 MEQ TABCR PO (11:00)
--- NOTE | 2025-02-07 11:14 | W.PM.DS.N ---
Date of service: 02/07/25 Time of Service: 11:15 DS: Diagnosis Discharge Diagnosis (1) Acute heart failure with reduced ejection fraction (HFrEF, <= 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: Status: Acute (2) Acute kidney injury superimposed on CKD: Status: Acute (3) A-fib: (4) Hypothyroid: Status: Chronic (5) CAD (coronary artery disease): (6) Type 2 diabetes mellitus: (7) Elevated transaminase level: Status: Acute (8) Wheezing: Status: Acute (9) Mitral valve stenosis: Discharge Plan Disposition Patient Disposition: Long Term Facility(SNF) Condition: Good Discharge Details Reason For Visit: Acute Exacerbation of CHP Admit Date/Time: 01/22/25 07:36 Admit Provider: Jose Sullivan Attending Provider: Jose Sullivan Primary Care Provider: Mell Cueto Hospital Course Hospital Course: Patient initially presented with signs and symptoms consistent with heart failure and PRACHI. An echocardiogram with an EF of 25% with severe tricuspid regurg is no change from previous. She was placed on IV Lasix and trialed on oral torsemide but did not tolerate it well went back on IV Lasix with good urine output. On 02 03 she was noted to have increased weight again and was placed on midodrine which did significantly improve perfusion to her kidneys and allowed for ongoing diuresis. Since that time she has been on 40 mg p.o. twice daily Lasix with good urine output improvement of her lower extremity edema. Additionally, patient has had difficulty with her warfarin dose and INR. She has been getting 2.5 mg at bedtime, but most recent INR from 02/07/2025 was 2.6, with her needing to be between 3 and 3.5 has needed an additional 2.5 nighttime dose on 02 06. Recommend continuing 2.5 at bedtime and checking a INR daily until INR levels are between 3 and 3.5. However, is otherwise determined that the patient was stable for discharge to [facility] and rehab. Home Meds and New Rx's Prescriptions: New midodrine 2.5 mg Tablet 2.5 mg PO TID Qty: 90 0RF sacubitril-valsartan [Entresto] 24-26 mg Tablet 0.5 tab PO BID Qty: 90 0RF Continued zolpidem 5 mg tablet 5 mg PO QHS fluticasone propionate [Flonase Allergy Relief] 50 mcg/actuation spray,suspension 2 spray intranasal DAILY Rx Instructions: administer into each nostril albuterol sulfate 2.5 mg /3 mL (0.083 %) solution for nebulization 2.5 mg inhalation Q4H PRN fluticasone propion-salmeterol 500-50 mcg/dose blister with device 1 inh inhalation BID Jardiance 25 mg tablet 25 mg PO DAILY mv-mn [id number] acid 27 mg iron- 1 mg tablet 1 tab PO DAILY spironolactone 25 mg tablet 25 mg PO DAILY Qty: 90 3RF amiodarone [Pacerone] 200 mg tablet 200 mg PO DAILY Qty: 90 3RF ipratropium-albuterol 0.5 mg-3 mg(2.5 mg base)/3 mL solution for nebulization 3 ml INHALATION QID Patient Comments: INHALE 3 MLS 4 TIMES A DAY BY NEBULIZATION ROUTE albuterol sulfate [ProAir HFA] 90 mcg/actuation Hfa Aerosol Inhaler 2 puff inhalation QID PRN PRN cetirizine 10 mg tablet 10 mg PO QAM Patient Comments: TK 1 T PO D PRN cholecalciferol (vitamin D3) [Vitamin D3] 25 mcg (1,000 unit) tablet 1,000 unit PO QAM Patient Comments: TAKE 1 TABLET BY MOUTH ONCE DAILY atorvastatin [Lipitor] 10 mg Tablet 10 mg PO QPM potassium chloride 10 mEq tablet,ER particles/crystals 10 meq PO QAM Patient Comments: TK 1 T PO QD warfarin 5 mg tablet 2.5 - 5 mg PO DIRECTED PRN Patient Comments: TK 1 T PO D UTD Rx Instructions: 2.5 M/Th - 5 all other days alendronate 70 mg tablet 70 mg PO DIRECTED Patient Comments: TK 1 T PO WEEKLY ON AN EMPTY STOMACH WITH BIG GLASS OF WATER DONT LIE DOWN FOR AN HOUR Rx Instructions: weekly levothyroxine 75 mcg Tablet 37.5 mcg PO DAILY@0600 Qty: 30 0RF Discontinued torsemide 20 mg tablet 50 mg PO DAILY Qty: 240 3RF Discharge Instructions Stand Alone Forms: Nursing Discharge Form Activity:: Activity as Tolerated Equipment/Supplies:: No Equipment Needed Diet:: As Tolerated Discharge Orders Discharge Orders: Discharge Order (Routine); Ordered 02/07/25 Ordered By: Jose Sullivan Discharge Data Discharge Date/Time-TO BE ENTERED AT DEPARTURE: 02/07/25 11:30 DS: Summary Time Spent with Patient providing and/or coordinating discharge services: Greater than 30 minutes Status at Discharge Functional status at discharge: independent ambulation Overall status at discharge: patient is back to baseline Mental Status: mental status grossly normal Speech and Movement: speech and movement normal Mood: congruent mood Affect: normal affect Quality:SDOH Health Related Social Needs: Health related social needs inadequate housing Health related social needs details bed bugs Health related social needs details: bed bugs Exam Narrative Exam Narrative: Fatigued appearing older female sitting up in the chair no acute distress, ANO x 4, heart regular rhythm, lungs clear to auscultation bilaterally, abdomen soft, nontender, nondistended, bilateral lower extremities wrapped, though appeared to have improved edema as compared to previous days Psych Mental Status: mental status grossly normal Speech and Movement: speech and movement normal Mood: congruent mood Affect: normal affect DS: Data Vitals/I&O Vitals and I&O: Vital Signs Temperature 97.5 F L 02/07/25 07:31 Temperature Source Temporal Artery Scan 02/07/25 07:31 Pulse 78 02/07/25 07:31 Pulse Rhythm Irregular 01/22/25 09:12 Pulse 60 01/22/25 08:16 Respiratory Rate 16 02/07/25 07:31 Respiratory Effort Normal 01/22/25 09:12 Respiratory Depth Normal 01/22/25 09:12 Respiratory Pattern Normal 01/22/25 09:12 Blood Pressure 99/83 L 02/07/25 07:31 Blood Pressure Mean 88 02/07/25 07:31 Pulse Oximetry 100 02/07/25 07:31 Oxygen Delivery Method Room Air 02/07/25 07:31 Oxygen Flow Rate 0 02/07/25 07:31 Pain Level 7 02/07/25 07:31 Comment rn notified 02/07/25 07:31 Intake & Output 02/06/25 02/07/25 02/07/25 17:59 05:59 17:59 Intake Total 730 / 730 300 / 1030 340 / 340 Output Total 400 / 400 1150 / 1550 350 / 350 Balance 330 / 330 -850 / -520 -10 / -10 Weight 157 lb 6.561 oz Intake: Oral 730 / 730 300 / 1030 340 / 340 Output: Urine 400 / 400 1150 / 1550 350 / 350 Other: Urine Color Yellow Yellow Yellow Urine Appearance Clear Clear Clear Urine Odor Normal Strong Normal Comment Pt voids ind. in commode with call light withing reach, pt rings appropriately when done. Stool Size Small Small Stool Characteristics Soft Soft Formed Black Data Completed and Pending Labs on day of discharge: Labs from last 24 hours 02/07/25 06:02 PT 24.1 H INR 2.6 H Sodium 132 L Potassium 4.7 Chloride 98 Carbon Dioxide 27.9 Anion Gap 6.1 BUN 58 H Creatinine 1.6 H Est GFR (CKD-EPI 2020) 31.41 Glucose 148 H Calcium 8.4 L PFSH All Active Problems (Updated 02/07/25 @ 11:13 by Jose Sullivan MD) Hypokalemia (Acute) Shortness of breath (Acute) Deficit in activities of daily living (ADL) (Acute) Impaired instrumental activities of daily living (Acute) Advanced care planning/counseling discussion (Acute) Palliative care patient (Acute) Wheezing (Acute) H/O mitral valve replacement with mechanical valve (Acute) Elevated transaminase level (Acute) Anemia (Chronic) Acute kidney injury superimposed on CKD (Acute) Hypothyroid (Chronic) Acute heart failure with reduced ejection fraction (HFrEF, <= 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 (Acute) Cardiomyopathy (Acute) Atrial fibrillation with rapid ventricular response (Acute) Heart failure with reduced ejection fraction (Acute) Iron refractory iron deficiency anemia (Acute) Nonhealing nonsurgical wound with fat layer exposed (Acute) Wound of left lower extremity (Acute) Anticoagulated on Coumadin (Acute) Lesion of skin of nose (Acute) Conductive hearing loss in right ear (Acute 02/23/15) Mixed conductive and sensorineural hearing loss of right ear with restricted hearing of left ear (Acute 07/25/16) Sensorineural hearing loss (SNHL) of left ear with restricted hearing of right ear (Acute 07/25/16) Sensorineural hearing loss, bilateral (Acute 02/25/17) Medical History Aortic stenosis, moderate Severe tricuspid regurgitation Abscess Bunion Memory deficit Elevated TSH Type 2 diabetes mellitus Hypocalcemia CKD (chronic kidney disease) Facial skin lesion Hyperlipidemia Asthma CAD (coronary artery disease) A-fib HTN (hypertension) Diabetes mellitus Lactose intolerance Osteoporosis Diverticulitis Allergic rhinitis Hiatal hernia Mitral valve stenosis Insomnia Leg cramps Surgical History Status post excisional debridement (~02/2024) Left Leg Mitral valve replaced History of bladder suspension procedure History of tonsillectomy H/O adenoidectomy Family History Father , d. 60 Throat cancer Mother , d. 80 Heart disease Social History Smoking/Tobacco Use Status: Never Smoking risk assessment performed?: Yes Alcohol Intake: never Drug use: Never Substance use type: does not use Household members: none Housing: house Number of Children: 4 Do you feel safe at home: Yes Do you feel safe in your relationship?: Yes Additional Social history: . lives alone in home on [address]. son lives nearby Time Spent with Patient Time Spent with Patient: <45 minutes Time was spent: preparing to see the patient(eg.review tests), obtaining and/or reviewing separately otained hiistory, ordering medications,tests, procedures, referring, communicating with other health long term care pharmacist, indepentently interpreting results, counseling the patient and care coordination
--- NOTE | 2025-02-07 11:14 | PT.INPN ---
PT Notes Visit Reasons: Acute Exacerbation of CHP Inpatient Physical Therapy Progress Note Date: 02/07/2025 Dates of Service: 01/31/2025-02/07/2025 PRECAUTIONS: Standard, BLE edema, SUBJECTIVE: Pt reports she is still so weak. She states she has never been so sick before and she hopes with more time she can recover and return to her home. OBJECTIVE PAIN: 09/09 BED MOBILITY/TRANSFERS Rolling L/R: independent with rails Supine-sit: Independent with HOB elevated Sit-supine: Min A for BLE Sit-stand: CGA Stand-sit:CGA Bed-Chair: CGA with FWW Chair-bed: CGA with FWW GAIT Assistive Device:FWW Weight bearing: WBAT Assist: CGA with w/c follow Distance: 20-60 feet Deviation: reduced step length , narrow PETER VITALS: monitored via telemetry throughout THEREX: seated Ankle pumps, LAQ, marching, supine heel slides QS STAIRS: unable to perform Assessment: Sushma's stay continues to be complicated with fluctuations in edema bilateral lower extremities limiting her ability to progress with functional mobility. Patient has had episodes of wheezing and shortness of breath. Sushma demonstrates potential to improve current level of function. She remains motivated to return to her home. Patient would benefit from short-term SNF to improve functional abilities and ADL function prior to discharge to home as she is currently dependent for ADLs. Patient is an 84 yo female who presents with clinical signs and symptoms consistent with current/admitting diagnoses that have resulted to mobility limitations, gait instability, generalized weakness, and impairment of motor control as demonstrated by the following impairment level findings: 1. Decreased strength to BUE/BLE major muscle groups 2. Impaired standing balance 3. impaired functional activity tolerance 4. BLE 3+ edema toes to pelvis Impairments are contributing to the following functional limitations: 1. Inability to safely ambulate without assistive device 2. Increase completion time for mobility ADL performance 3. Increased fall risk 4. difficulty performing transfers independently 5. difficulty performing stairs safely without assistance. Patient is assessed as a low complexity based on the following: History: 84-year-old female with impairment level findings, functional limitations, and past medical history as indicated above Examination: Demonstrable impairment in strength, balance, and mobility level with underlying impairments and functional limitations as documented above Presentation: stable / evolving Decision Making: low Goals: Goals not met continue x 1 week 1. independent bed mobility - partially met independent to EOB min A for LE into bed 2. mod independent transfers with FWW--- Not met CGA with increased time 3. mod independent ambulation with FWW >50 feet x 2--- Not met 30 feet x 2 4. CGA 2 steps to safely enter and exit home--- Not met unable to assess d/t medical status PLAN OF CARE/TREATMENT PLAN: 1-2x/day, 7 days/ week x 1 week Plan of care has been reviewed with the [employer] MACHINE SETTER providing the service under Physical therapy direction. Initiate physical therapy intervention for strengthening, bed mobility, transfers, gait, stairs, balance training, use of assistive device. DISCHARGE RECOMMENDATIONS:SNF TREATMENT CODE/TIME:98643/[id number]
--- NOTE | 2025-02-07 11:44 | CMDISCH_ITS ---
Date of service: 02/07/25 Time of Service: 11:44 LACE Index Scoring Tool Questions: Length of Stay (in days): 14 or more Was the patient admitted via the E.D.?: Yes Comorbidities: Congestive Heart Failure and Liver or Renal Disease E.D. Visits: 3 Answers: Total Score: 18 Risk of Readmission: High Risk Care Management Discharge Plan Reason for Hospitalization: Acute exacerbation of CHF Discharge Plan: Sushma transferred to [facility] for short term rehab. She transported via [employer] w/c [employer], coordinated by CM. She will follow up with her PCP and discharge plan of care. She is agreeable to this plan. Patient/Family Education Needs: Review discharge instructions and limitations, discussion of self care needs including ask me three. Services Needed at Discharge: Shelter Facility ([facility]) and Transportation ([employer] [facility] [employer]) SDOH Health Related Social Needs: Health related social needs inadequate housing Health related social needs details bed bugs Health related social needs details: bed bugs
--- NOTE | 2025-02-07 13:29 | NUR.NOTE ---
Nursing Note: Reviewed documentation by Chucky Mccarthy, EZEQUIEL student.
--- NOTE | 2025-02-22 14:03 | W.PM.PROGNOT ---
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 torsemide - Continue home spironolactone - Patient normally on torsemide, currently on hold (2) Acute kidney injury superimposed on CKD: Status: Resolved Assessment and plan: - History of CKD, Cr 1.8 on admission -down to 1.5 as of AM 01/23 - Will follow-up a.m. creatinine (3) A-fib: Assessment and plan: - Currently rate controlled - Continue home warfarin and amiodarone - Monitor INR daily (4) Hypothyroid: Status: Chronic Assessment and plan: - Continue home Synthroid (5) CAD (coronary artery disease): Assessment and plan: - History of - No complaints of active chest pain - Continue home statin (6) Type 2 diabetes mellitus: Assessment and plan: - Hold home Jardiance - Sliding scale insulin, heart healthy carb consistent diet Subjective Subjective Interval history since last seen: Patient states that she feels a little bit better today and has no complaints or concerns at this time. Exam Narrative Exam Narrative: Well-appearing but fatigued older female laying in the chair no acute distress, ANO x 4, heart regular rate rhythm, lungs with minimal crackles in bilateral bases, abdomen soft, nontender, nondistended, improvement in bilateral lower extremity edema Objective Last Vital Signs Temp 97.5 F L 02/07/25 07:31 Pulse 78 02/07/25 07:31 Resp 16 02/07/25 07:31 BP 104/58 L 02/07/25 08:30 Pulse Ox 100 02/07/25 07:31 Time Spent with Patient Time Spent with Patient: >50 minutes Time was spent: preparing to see the patient(eg.review tests), obtaining and/or reviewing separately otained hiistory, ordering medications,tests, procedures, referring, communicating with other health patient care representative, indepentently interpreting results, counseling the patient and care coordination
== END 2025-02-07 11:30 | disposition skilled nursing facility (03) | DRG 291 ==
LOC: ER 07:28 → MS 08:33
PROVIDERS: Family Medicine; Hospitalist; Admitting Provider Family Medicine; Emergency Provider Emergency Medicine; PCP Family Medicine; Responsible Provider Family Medicine; Visit Provider Family Medicine
DX: I50.41 Acute combined systolic (congestive) and diastolic (congestive) heart failure (principal); Z95.2 Presence of prosthetic heart valve; Z79.84 Long term (current) use of oral hypoglycemic drugs; M79.604 Pain in right leg; I73.9 Peripheral vascular disease, unspecified; D50.9 Iron deficiency anemia, unspecified; E03.9 Hypothyroidism, unspecified; I42.9 Cardiomyopathy, unspecified; Z79.01 Long term (current) use of anticoagulants; H90.3 Sensorineural hearing loss, bilateral; E11.22 Type 2 diabetes mellitus with diabetic chronic kidney disease; N18.9 Chronic kidney disease, unspecified; N17.9 Acute kidney failure, unspecified; E78.5 Hyperlipidemia, unspecified; I25.10 Atherosclerotic heart disease of native coronary artery without angina pectoris; I13.0 Hypertensive heart and chronic kidney disease with heart failure and stage 1 through stage 4 chronic kidney disease, or unspecified chronic kidney disease; M81.0 Age-related osteoporosis without current pathological fracture; J44.9 Chronic obstructive pulmonary disease, unspecified; G47.00 Insomnia, unspecified; Z59.19 Other inadequate housing; W18.39XA Other fall on same level, initial encounter; R74.01 Elevation of levels of liver transaminase levels; I25.2 Old myocardial infarction; J47.9 Bronchiectasis, uncomplicated; Z66 Do not resuscitate; I08.2 Rheumatic disorders of both aortic and tricuspid valves; I95.9 Hypotension, unspecified; R79.1 Abnormal coagulation profile; E87.6 Hypokalemia; R06.2 Wheezing; Z73.89 Other problems related to life management difficulty; I48.91 Unspecified atrial fibrillation
CPT/HCPCS: 00123; 36415; 51702; 80048; 80053; 82805; 85027; 93005; 94640; 96365; 96376; 97116; 97161; 97530; 99222; 99285; 71045; 81003; 83540; 83550; 83735; 83880; 84439; 84443; 84484; 85014; 85018; 85025; 85610; 93010; 93306; 94664; 94760; 99223; 99231; 99232; 99233; 99238; J1650; J1756; J1815; J1938; J3430; J7512; J7613; J7620

== ENCOUNTER 2025-02-08 13:32 | Outpatient (REF) | payer MEDICARE, MEDICAID, SELFPAY ==
[2025-02-08 14:01] LABS: INR 2.8 (0.9-1.1); Prothrombin Time 26.0 sec (9.1-11.1)
== END 2025-02-08 13:33 | disposition home or self-care (01) ==
LOC: LBN 13:32
PROVIDERS: PCP Family Medicine; Visit Provider Nurse Practitioner Adult Health
DX: Z95.2 Presence of prosthetic heart valve (principal)
CPT/HCPCS: 85610

== ENCOUNTER 2025-02-09 14:25 | Inpatient (IN) | payer MEDICARE, MEDICAID, SELFPAY ==
[2025-02-09] VITALS (63 sets, daily range): BP systolic 93–125; BP diastolic 32–87; PULSE 66–119; RESP 16–29; TEMP 36.5–36.6; O2SAT 95–100
--- NOTE | 2025-02-09 14:30 | RT.EKG_ITS ---
APPROVED REPORT Exam: Resting ECG Reason for Exam: Shortness of Breath Patient Location: E HR:103 bpm ECG Measurements Heart Rate 103 AXIS WV [id number] P [id number] QRSd 146 QRS -88 QT 413 T 90 QTc 540 Conclusion Atrial fibrillation...? atrial activity Left bundle branch block...QRSd>120, broad/notched R ST elevation secondary to IVCD...Multiple VCG criteria No Occlusion GA. Not meeting Sgarbossa normal for the Mills criteria for ischemia.
--- NOTE | 2025-02-09 14:45 | DI.RAD_ITS ---
Exam(s) XR PORTABLE CHEST AP EXAM: XR PORTABLE CHEST AP CLINICAL HISTORY: Chest pain TECHNIQUE: 2D digital imaging was performed. COMPARISON: CR,XR XR PORTABLE CHEST AP from 08/13/2024 CR XR PORTABLE CHEST AP from 10/13/2024 CR,XR XR PORTABLE CHEST AP from 01/22/2025 FINDINGS: LUNGS: Small bilateral pleural effusions, left greater than right. Pulmonary artery prominence. Increased interstitial markings, suspicious for CHF. HEART: Markedly enlarged. Valve prosthesis. AORTA: Normal diameter. Calcified. BONES: Unremarkable for age. Soft tissues: Unremarkable. IMPRESSION: Cardiomegaly and CHF. DATA REPOSITORY: RADIATION DOSE DELIVERED:
--- NOTE | 2025-02-09 15:05 | W.ED.GENAD ---
Discharge Plan Disposition Patient Disposition: Admit to [facility] Discharge Details Clinical Impression: Acute HFrEF (heart failure with reduced ejection fraction) Admit Date/Time: 02/09/25 19:58 Admit Provider: Dimas Faye Attending Provider: Dimas Faye Primary Care Provider: Mell uCeto ED Provider: Felipe Ross [facility] General Date/Time Provider Initiated Documentation: 02/09/25 14:41. HPI Narrative: MDM This is an uncomfortable appearing and initially hypotensive mildly tachycardic 84-year-old female with acute exacerbation of heart failure with reduced ejection fraction. She has bilateral B-lines crackles. I considered PE however the patient did not tachycardic given her significant lung congestion I felt that PE was less likely so I did not send a D-dimer. Furthermore patient was on warfarin. I treated her with 1 sublingual tablet of nitroglycerin she did have signs of symptomatic crushing acute pulmonary edema. She was not in respiratory distress to suggest benefit for rescue BiPAP. She was not having chest pain to suggest ACS. CT showed left bundle branch block not meeting Sgarbossa criteria nor modified Mills criteria for ischemia. She does not have a cough to suggest pneumonia. I considered sepsis however the patient was not having fevers. No pain out of proportion to suggest necrotizing soft tissue infection. No dysuria or frequency to suggest UTI. Patient wanted to be discharged. Given her acute shortness of breath and her delicate fluid balance I felt that the risk of discharge with the benefits. Patient was amenable to overnight hospitalization. Her CBC lacks anemia thrombocytopenia and leukocytosis. Her INR was therapeutic at 3.3. She had mild lactate which I checked to assess for cardiogenic shock. Her venous blood gas and lactic acidemia and hypercarbia. She has no history of reactive airway disease to suggest benefit from steroids nor nebs. She had no PRACHI nor any acute electrolyte abnormalities. She had 2 reassuring troponins in the ED. her proBNP was elevated at 22,000. She had an elevated TSH with normal free T4. Urinalysis nitrite negative not consistent with UTI. COVID RSV swab negative. 6:35 PM I was in touch with Dr. Rm from the hospitalist team who graciously agreed to accept the patient for hospitalization. HPI The patient presents to the emergency room for shortness of breath. She has been experiencing shortness of breath since this morning, which was not present yesterday. She reports no nausea, vomiting, or chest pain. She also does not believe she has gained weight unintentionally. She is currently on a blood thinner, although she is unsure of the specific medication. She has a history of heart problems and underwent a valve replacement approximately 29 years ago. Exam General: Elderly-appearing in no mild distress speaking in 5-6 word sentences. Head: Normocephalic, atraumatic. Eye: Extraocular eye movements intact. No conjunctival injection. No scleral icterus. Ear, nose, mouth, throat: Grossly normal inspection. Normal voice, handling secretions normally. Neck: Trachea midline. Cardiovascular: Well-perfused distal extremities. Rapid regular rate Respiratory: Nonlabored respiration. Bibasilar crackles Gastrointestinal: Nondistended abdomen. Musculoskeletal: Bilateral lower extremity 2+ pitting edema to the mid tibias. Moving all 4 extremities spontaneously. Skin: Normal for age and race, grossly normal temperature and turgor. No acute rash. Neurologic: Alert and appropriate, no apparent acute deficits. Psychiatric: Mood and manner are appropriate. Grooming and personal hygiene are appropriate. Related Data Home Medications ?Medication ?Instructions ?Recorded ?Confirmed albuterol sulfate 90 mcg/actuation 2 puff inhalation QID PRN PRN 09/27/19 02/09/25 aerosol inhaler (ProAir HFA) alendronate 70 mg tablet 70 mg PO DIRECTED 09/27/19 02/09/25 atorvastatin 10 mg tablet (Lipitor) 10 mg PO QPM 09/27/19 02/09/25 cetirizine 10 mg tablet 10 mg PO QAM 09/27/19 02/09/25 cholecalciferol (vitamin D3) 25 1,000 unit PO QAM 09/27/19 02/09/25 mcg (1,000 unit) tablet (Vitamin D3) potassium chloride 10 mEq 10 meq PO QAM 09/27/19 02/09/25 tablet,extended release(part/cryst) warfarin 5 mg tablet 2.5 - 5 mg PO DIRECTED PRN 09/27/19 02/09/25 fluticasone propionate 50 2 spray intranasal DAILY 07/06/24 02/09/25 mcg/actuation nasal spray,suspension (Flonase Allergy Relief) zolpidem 5 mg tablet 5 mg PO QHS 07/06/24 02/09/25 ipratropium 0.5 mg-albuterol 3 mg 3 ml inhalation QID 08/13/24 02/09/25 (2.5 mg base)/3 mL nebulization soln levothyroxine 75 mcg tablet 37.5 mcg (1/2 x 75 mcg) PO 10/18/24 02/09/25 DAILY@0600 #30 tabs albuterol sulfate 2.5 mg/3 mL 2.5 mg inhalation Q4H PRN 11/04/24 02/09/25 (0.083 %) solution for nebulization empagliflozin 25 mg tablet 25 mg PO DAILY 11/04/24 02/09/25 (Jardiance) fluticasone 500 mcg-salmeterol 50 1 inh inhalation BID 11/04/24 02/09/25 mcg/dose blistr powdr for inhalation multivitamin with minerals-iron 1 tab PO DAILY 11/04/24 02/09/25 fumarate 27 mg-folic acid 1 mg tablet amiodarone 200 mg tablet (Pacerone) 200 mg PO DAILY #90 tabs 11/05/24 02/09/25 spironolactone 25 mg tablet 25 mg PO DAILY #90 tabs 11/05/24 02/09/25 midodrine 2.5 mg tablet 2.5 mg PO TID #90 tabs 02/07/25 02/09/25 sacubitril 24 mg-valsartan 26 mg 0.5 tab PO BID #90 tabs 02/07/25 02/09/25 tablet (Entresto) Previous Rx's ?Medication ?Instructions ?Recorded levothyroxine 75 mcg tablet 37.5 mcg (1/2 x 75 mcg) PO 10/18/24 DAILY@0600 #30 tabs amiodarone 200 mg tablet (Pacerone) 200 mg PO DAILY #90 tabs 11/05/24 spironolactone 25 mg tablet 25 mg PO DAILY #90 tabs 11/05/24 midodrine 2.5 mg tablet 2.5 mg PO TID #90 tabs 02/07/25 sacubitril 24 mg-valsartan 26 mg 0.5 tab PO BID #90 tabs 02/07/25 tablet (Entresto) Allergies Allergy/AdvReac Type Severity Reaction Status Date / Time peanut Allergy Severe Anaphylaxis Verified 08/23/25 06:36 Penicillins Allergy Unknown Pt thinks Verified 01/22/25 06:36 she gets a rash aminophylline Allergy unknown Verified 01/22/25 06:36 digoxin Allergy unknown Verified 01/22/25 06:36 enalaprilat (From Vasotec) Allergy unknown Verified 01/22/25 06:36 tree and shrub pollen Allergy Itching Verified 01/22/25 06:36 paper tape Allergy Intermediate Skin Rash, Uncoded 01/22/25 06:36 red and sore General Stated Complaint: SOB/SuddenOnset SANDRA: 2 Course Vital Signs Vital signs: Vital Signs Pulse 115 H 02/09/25 14:26 Respiratory Rate 24 02/09/25 14:26 Blood Pressure 96/32 L 02/09/25 14:26 Pulse Oximetry 99 02/09/25 14:26 Pulse 115 H 02/09/25 14:26 Respiratory Rate 24 02/09/25 14:26 Respiratory Effort Short of Breath, Labored 02/09/25 15:00 Respiratory Depth Normal 02/09/25 15:00 Respiratory Pattern Tachypnea 02/09/25 15:00 Blood Pressure 96/32 L 02/09/25 14:26 Blood Pressure Position Sitting 02/09/25 14:26 Pulse Oximetry 99 02/09/25 14:26 Oxygen Delivery Method Room Air 02/09/25 14:26 Oxygen Flow Rate 0 02/09/25 14:26 Pain Level 0 02/09/25 14:26 Medical Decision Making Quality:SDOH Health Related Social Needs: Health related social needs risk of homeless daily activities Health related social needs details lives in [facility] Critical Care Time Critical Care Time Critical Care Time: Yes Total Critical Care Time: 30 Attestation: Acute heart failure PFSH All Active Problems (Updated 02/09/25 @ 19:24 by Dimas Faye) Acute HFrEF (heart failure with reduced ejection fraction) (Acute) Deficit in activities of daily living (ADL) (Acute) Impaired instrumental activities of daily living (Acute) Advanced care planning/counseling discussion (Acute) Palliative care patient (Acute) H/O mitral valve replacement with mechanical valve (Acute) Anemia (Chronic) Hypothyroid (Chronic) Acute heart failure with reduced ejection fraction (HFrEF, <= 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 (Acute) Cardiomyopathy (Acute) Heart failure with reduced ejection fraction (Acute) Iron refractory iron deficiency anemia (Acute) Nonhealing nonsurgical wound with fat layer exposed (Acute) Wound of left lower extremity (Acute) Anticoagulated on Coumadin (Acute) Lesion of skin of nose (Acute) Conductive hearing loss in right ear (Acute 02/23/15) Mixed conductive and sensorineural hearing loss of right ear with restricted hearing of left ear (Acute 07/25/16) Sensorineural hearing loss (SNHL) of left ear with restricted hearing of right ear (Acute 07/25/16) Sensorineural hearing loss, bilateral (Acute 02/25/17) Medical History Aortic stenosis, moderate Severe tricuspid regurgitation Abscess Bunion Memory deficit Elevated TSH Type 2 diabetes mellitus Hypocalcemia CKD (chronic kidney disease) Facial skin lesion Hyperlipidemia Asthma CAD (coronary artery disease) A-fib HTN (hypertension) Diabetes mellitus Lactose intolerance Osteoporosis Diverticulitis Allergic rhinitis Hiatal hernia Mitral valve stenosis Insomnia Leg cramps Surgical History Status post excisional debridement (~02/2024) Left Leg Mitral valve replaced History of bladder suspension procedure History of tonsillectomy H/O adenoidectomy Family History Father , d. 60 Throat cancer Mother , d. 80 Heart disease Social History Smoking/Tobacco Use Status: Never Smoking risk assessment performed?: Yes Alcohol Intake: never Drug use: Never Substance use type: does not use Household members: none Housing: senior living Number of Children: 4 Do you feel safe at home: Yes Do you feel safe in your relationship?: Yes Additional Social history: . lives alone in home on [facility] [place]. son lives nearby POCUS Exam (ED) Limited Cardiac Exam DATE OF EXAM: 02/09/25 PROVIDER THAT PERFORMED THE STUDY: Felipe Ross IS THIS A REPEAT EXAM DURING THIS ENCOUNTER: no REASON FOR EXAM: Dyspnea VISUALIZED STRUCTURES: Four Chambers, Left ventricle and LVOT VIEW OBTAINED: Apical 4-Chamber, Parasternal long-axis and Subxiphoid PERTINENT FINDINGS/IMPRESSION: No pericardial effusion and No RV dilation DIFFERENTIAL DIAGNOSES: Aortic outflow track less than 4 cm, 4 squeeze, RV less than LV, no significant pericardial effusion. Bilateral B-lines. Exam complete
[2025-02-09 15:06] LABS: BE (Venous) 2 mmol/L (-2-3); HCO3 (Venous) 27 mmol/L (23-28); O2 Sat (Venous) 64 %; TCO2 (Venous) 25 mmol/L (24-29); pCO2 (Venous) 49 mmHg (41-51); pO2 (Venous) 38 mmHg
[2025-02-09 15:08] LABS: Abs Immature Grans 0.08 10^3/uL (0.0-0.06); HCT 37.8 % (36.0-46.0); HGB 11.4 g/dL (11.2-15.7); Immature Grans % 0.9 %; MCH 26.6 pg (27.0-33.0); MCHC 30.2 % (32.0-36.0); MCV 88 fL (80-95); MPV 9.7 fL (8.0-11.0); Platelet Count 306 10^3/uL (130-400); RBC 4.29 10^6/uL (3.93-5.22); RDW 18.3 % (11.7-14.6); RDW-SD 57.6 fL; WBC 8.44 10^3/uL (4.4-10.8)
[2025-02-09] MEDS: Furosemide 20 MG/2 ML VIAL IVP (15:12)
[2025-02-09] MEDS: nitroGLYcerin 0.4 MG TAB SL (15:12)
[2025-02-09 15:27] LABS: ALT 27 U/L (14-59); AST 23 U/L (15-37); Albumin 3.2 g/dL (3.4-5.0); Alkaline Phosphatase 175 U/L (46-116); Anion Gap 6.6 mmol/L (3-11); BUN 32 mg/dL (7-18); Bilirubin, Total 0.6 mg/dL (0.2-1.0); CO2 28.4 mmol/L (21.0-32.0); Calcium 8.4 mg/dL (8.5-10.1); Chloride 99 mmol/L (98-107); Estimated GFR 36.87 (mL/min/1.73m2); Glucose 221 mg/dL (74-106); Potassium 4.8 mmol/L (3.5-5.1); Sodium 134 mmol/L (136-145); Total Protein 7.1 g/dL (6.4-8.2); Troponin I 31 ng/L (<or=51)
[2025-02-09 15:28] LABS: INR 3.3 (0.9-1.1); Prothrombin Time 30.6 sec (9.1-11.1)
[2025-02-09 17:33] LABS: Troponin I 31 ng/L (<or=51)
[2025-02-09 17:57] LABS: Lab Add On Test DONE
[2025-02-09 18:18] LABS: NT-proBNP 22169 pg/mL (<300)
--- NOTE | 2025-02-09 19:17 | W.PM.HP.N ---
Date of service: 02/09/25 Time of Service: 19:17 Assessment and Plan Assessment and plan (1) Acute heart failure with reduced ejection fraction (HFrEF, <= 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: Start date: 02/09/25 Status: Acute Assessment and plan: This is an 84-year-old lady who had recent reduction in her already reduced left ventricular ejection fraction with worsening CHF. During her hospitalization she had aggressive diuresis and was sent back to the correction on oral Lasix with a decreased dose once daily rather than twice daily. She began to have increased swelling and shortness of breath return to the ED with acute exacerbation of her CHF. She will be restarted on IV Lasix and continue midodrine which was helpful with diuresis along with Aldactone which was initiated last hospitalization. Her echo was updated recently. Hopefully she will respond to increased diuresis and then switched over to an increased dose of oral diuretic. Trend lab and watch for electrolyte abnormalities. She is a DNR/DNI. (2) Cardiomyopathy: Status: Chronic Assessment and plan: Chronic and worsening the patient on appropriate medical therapy which will be continued along with increased diuresis. (3) H/O mitral valve replacement with mechanical valve: Status: Chronic Assessment and plan: Continue warfarin monitor daily PT/INR and adjusting Coumadin as needed. This has been adjusted recently and will need to be watched closely. (4) Type 2 diabetes mellitus: Assessment and plan: Become remembrance before meals and at bedtime with moderate sliding scale insulin coverage. She is usually on Jardiance and this might be decreased to a lower dose with her renal function. (5) CKD (chronic kidney disease): Assessment and plan: Stable appearing with monitoring clinically. This will be worsened by increased diuresis. (6) Hypothyroid: Status: Chronic Assessment and plan: Check TSH and continue outpatient replacement dosing. (7) CAD (coronary artery disease): Assessment and plan: Continue outpatient medical therapy. Patient is on low-dose statin. (8) HTN (hypertension): Assessment and plan: Continue outpatient medical therapy and adjust as needed with diuresis possibly affecting blood pressure. History of Present Illness History of Present Illness Chief Complaint: Progressive shortness of breath with cough at correction. Narrative: This is an 84-year-old female patient who had recent hospitalization for CHF with recalcitrant diuresis eventually being diuresed with midodrine, IV Lasix and was placed on oral Lasix at discharge. Is not clear that she was prescribed Lasix but the nurse home says that she has not been taking Lasix 20 mg daily. She was on twice a day in the hospital. At the correction to begin to have return of her leg swelling and shortness of breath with a mild cough. It was reported to the ED for evaluation and found to have exacerbation of her CHF the patient have a recent echocardiogram showed decreased left ventricular ejection fraction at 25%. This did worsen over the years. She was amenable to staying in the hospital for continued IV diuresis and converted to possibly higher dose diuretics to return to the correction. Her other chronic medical problems appear to be stable and medications will continue watching for worsening respiratory status. She is on warfarin because of a mitral valve replacement and she is not hypotensive. She is on Aldactone chronically. Patient was comfortable at the time my interview to her. She is a DNR/DNI. Review of Systems Narrative: 13 point review of systems otherwise unrevealing or stable. [facility] All Active Problems (Updated 02/10/25 @ 06:40 by Dimas Faye) Acute HFrEF (heart failure with reduced ejection fraction) (Acute) Deficit in activities of daily living (ADL) (Acute) Impaired instrumental activities of daily living (Acute) Advanced care planning/counseling discussion (Acute) Palliative care patient (Acute) H/O mitral valve replacement with mechanical valve (Chronic) Anemia (Chronic) Hypothyroid (Chronic) Acute heart failure with reduced ejection fraction (HFrEF, <= 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 (Acute) Cardiomyopathy (Chronic) Heart failure with reduced ejection fraction (Acute) Iron refractory iron deficiency anemia (Acute) Nonhealing nonsurgical wound with fat layer exposed (Acute) Wound of left lower extremity (Acute) Anticoagulated on Coumadin (Acute) Lesion of skin of nose (Acute) Conductive hearing loss in right ear (Acute 02/23/15) Mixed conductive and sensorineural hearing loss of right ear with restricted hearing of left ear (Acute 07/25/16) Sensorineural hearing loss (SNHL) of left ear with restricted hearing of right ear (Acute 07/25/16) Sensorineural hearing loss, bilateral (Acute 02/25/17) Medical History Aortic stenosis, moderate Severe tricuspid regurgitation Abscess Bunion Memory deficit Elevated TSH Type 2 diabetes mellitus Hypocalcemia CKD (chronic kidney disease) Facial skin lesion Hyperlipidemia Asthma CAD (coronary artery disease) A-fib HTN (hypertension) Diabetes mellitus Lactose intolerance Osteoporosis Diverticulitis Allergic rhinitis Hiatal hernia Mitral valve stenosis Insomnia Leg cramps Surgical History Status post excisional debridement (~02/2024) Left Leg Mitral valve replaced History of bladder suspension procedure History of tonsillectomy H/O adenoidectomy Family History Father , d. 60 Throat cancer Mother , d. 80 Heart disease Social History Smoking/Tobacco Use Status: Never Smoking risk assessment performed?: Yes Alcohol Intake: never Drug use: Never Substance use type: does not use Household members: none Housing: correction Number of Children: 4 Do you feel safe at home: Yes Do you feel safe in your relationship?: Yes Additional Social history: . lives alone in home on [email or web address]. son lives nearby Meds Allergies and Home Medications Allergies Allergy/AdvReac Type Severity Reaction Status Date / Time peanut Allergy Severe Anaphylaxis Verified 01/22/25 06:36 Penicillins Allergy Unknown Pt thinks Verified 01/22/25 06:36 she gets a rash aminophylline Allergy unknown Verified 01/22/25 06:36 digoxin Allergy unknown Verified 01/22/25 06:36 enalaprilat (From Vasotec) Allergy unknown Verified 01/22/25 06:36 tree and shrub pollen Allergy Itching Verified 01/22/25 06:36 paper tape Allergy Intermediate Skin Rash, Uncoded 01/22/25 06:36 red and sore Home Medications ?Medication ?Instructions ?Recorded ?Confirmed ?Type albuterol sulfate 90 mcg/actuation 2 puff inhalation QID PRN PRN 09/27/19 02/09/25 History aerosol inhaler (ProAir HFA) alendronate 70 mg tablet 70 mg PO DIRECTED 09/27/19 02/09/25 History atorvastatin 10 mg tablet (Lipitor) 10 mg PO QPM 09/27/19 02/09/25 History cetirizine 10 mg tablet 10 mg PO QAM 09/27/19 02/09/25 History cholecalciferol (vitamin D3) 25 1,000 unit PO QAM 09/27/19 02/09/25 History mcg (1,000 unit) tablet (Vitamin D3) potassium chloride 10 mEq 10 meq PO QAM 09/27/19 02/09/25 History tablet,extended release(part/cryst) warfarin 5 mg tablet 2.5 - 5 mg PO DIRECTED PRN 09/27/19 02/09/25 History fluticasone propionate 50 2 spray intranasal DAILY 07/06/24 02/09/25 History mcg/actuation nasal spray,suspension (Flonase Allergy Relief) zolpidem 5 mg tablet 5 mg PO QHS 07/06/24 02/09/25 History ipratropium 0.5 mg-albuterol 3 mg 3 ml inhalation QID 08/13/24 02/09/25 History (2.5 mg base)/3 mL nebulization soln levothyroxine 75 mcg tablet 37.5 mcg (1/2 x 75 mcg) PO 10/18/24 02/09/25 Rx DAILY@0600 #30 tabs albuterol sulfate 2.5 mg/3 mL 2.5 mg inhalation Q4H PRN 11/04/24 02/09/25 History (0.083 %) solution for nebulization empagliflozin 25 mg tablet 25 mg PO DAILY 11/04/24 02/09/25 History (Jardiance) fluticasone 500 mcg-salmeterol 50 1 inh inhalation BID 11/04/24 02/09/25 History mcg/dose blistr powdr for inhalation multivitamin with minerals-iron 1 tab PO DAILY 11/04/24 02/09/25 History fumarate 27 mg-folic acid 1 mg tablet amiodarone 200 mg tablet (Pacerone) 200 mg PO DAILY #90 tabs 11/05/24 02/09/25 Rx spironolactone 25 mg tablet 25 mg PO DAILY #90 tabs 11/05/24 02/09/25 Rx midodrine 2.5 mg tablet 2.5 mg PO TID #90 tabs 02/07/25 02/09/25 Rx sacubitril 24 mg-valsartan 26 mg 0.5 tab PO BID #90 tabs 02/07/25 02/09/25 Rx tablet (Entresto) Exam Narrative Exam Narrative: General: Patient appears appropriate, thinly built and in no acute distress. She is lying in bed with her head at a 45 degree angle. She is alert and oriented x 3. HEENT: Normocephalic, eyes with pupils equal and reactive to light symmetrically, extraocular movement intact and sclera anicteric. Oropharynx with moist mucosa. Neck: Supple without JVD. Back: Kyphotic without CVA tenderness. Lungs: Decreased aeration diffusely more on the right than left with coarse crackles mostly on the left. No focalizing rales or rhonchi. Breast: Exam deferred. Heart: Irregularly irregular rhythm with tachycardic rate in the 100s, 4-6 holosystolic murmur over lateral border and apex, no gallops or rubs. Abdomen: Normal contour, soft and nontender to palpation with no palpable hepatosplenomegaly. Genitalia/rectal: Exam deferred. Extremities: 3+ soft pitting edema over ankles and feet with chronic skin changes but no skin breakdown. Fair capillary refill. No cyanosis or clubbing. Skin: Normal color, warm and dry. Neuro: Cranial nerves II to XII gross intact, no focal motor deficits and no tremor. Psych: Normal affect and mood. No abnormal thought processes. Remote and recent memory intact. Results Labs 02/09/25 14:55 02/09/25 14:55 Labs: Laboratory Results - last 24 hr 02/09/25 02/09/25 14:55 17:05 WBC 8.44 RBC 4.29 Hgb 11.4 Hct 37.8 MCV 88 MCH 26.6 L MCHC 30.2 L RDW 18.3 H Plt Count 306 MPV 9.7 Immature Gran % 0.9 Neutrophils % 87.9 Lymphocytes % 1.7 Monocytes % 7.8 Eosinophils % 1.3 Basophils % 0.4 Nucleated RBC % 0.0 Absolute Neutrophils 7.42 H Absolute Lymphocytes 0.14 L Absolute Monocytes 0.66 Absolute Eosinophils 0.11 Absolute Basophils 0.03 PT 30.6 H INR 3.3 H VBG pH 7.35 VBG pCO2 49 VBG pO2 38 VBG HCO3 27 VBG Total CO2 25 VBG O2 Saturation 64 VBG Base Excess 2 VBG Lactate 2.5 H* Sodium 134 L Potassium 4.8 Chloride 99 Carbon Dioxide 28.4 Anion Gap 6.6 BUN 32 H Creatinine 1.4 H Est GFR (CKD-EPI 2020) 36.87 Glucose 221 H Calcium 8.4 L Total Bilirubin 0.6 AST 23 ALT 27 Alkaline Phosphatase 175 H Troponin I 31 31 NT-Pro-B Natriuret Pep 30037 H Total Protein 7.1 Albumin 3.2 L Add-On Test Request DONE Last Vital Signs Temp 36.5 C 02/09/25 15:18 Pulse 102 H 02/09/25 17:31 Resp 20 02/09/25 17:31 BP 112/75 02/09/25 17:30 Pulse Ox 97 02/09/25 17:31 Time Spent Time spent with Patient: >75 minutes Time was spent: preparing to see the patient(eg.review tests), obtaining and/or reviewing separately otained hiistory, ordering medications,tests, procedures, indepentently interpreting results, counseling the patient and care coordination
--- NOTE | 2025-02-09 20:45 | W.PC.ACHO ---
Registration Status: REG ER Primary Language: Preferred Language: Kinyarwanda ED Information & Data Chief Complaint SOB/SuddenOnset 02/09/25 15:06 Triage Note Pt BIBA for wheezing and SOB 02/09/25 14:26 .Pt recently prescribed lasix. Rehab reports pt has been hypotensive today. Edema noted in the legs, which pt states have been weeping since yesterday. Medical / Surgical History (Last Reviewed 02/09/25 @ 19:17 by Dimas Faye) Aortic stenosis, moderate Severe tricuspid regurgitation Abscess Bunion Memory deficit Elevated TSH Type 2 diabetes mellitus Hypocalcemia CKD (chronic kidney disease) Facial skin lesion Hyperlipidemia Asthma CAD (coronary artery disease) A-fib HTN (hypertension) Diabetes mellitus Lactose intolerance Osteoporosis Diverticulitis Allergic rhinitis Hiatal hernia Mitral valve stenosis Insomnia Leg cramps (Last Reviewed 02/09/25 @ 19:17 by Dimas Faye) Status post excisional debridement (~02/2024) Mitral valve replaced History of bladder suspension procedure History of tonsillectomy H/O adenoidectomy Most Recent Vital Signs Temperature 36.5 C 02/09/25 15:18 Temperature Source Tympanic 02/09/25 15:18 Pulse 113 H 02/09/25 20:17 Pulse 102 H 02/09/25 20:01 Respiratory Rate 19 02/09/25 20:20 Respiratory Effort Short of Breath, Labored 02/09/25 15:00 Respiratory Depth Normal 02/09/25 15:00 Respiratory Pattern Tachypnea 02/09/25 15:00 Blood Pressure 95/47 L 02/09/25 20:17 Blood Pressure Mean 63 02/09/25 20:17 Blood Pressure Position Sitting 02/09/25 14:26 Pulse Oximetry 96 02/09/25 20:01 Oxygen Delivery Method Room Air 02/09/25 14:26 Oxygen Flow Rate 0 02/09/25 14:26 Pain Level 0 02/09/25 14:26 Allergies peanut Allergy (Severe, Verified 01/22/25 06:36) Anaphylaxis anaphylaxis - does not carry an epi pen Penicillins Allergy (Unknown, Verified 01/22/25 06:36) Pt thinks she gets a rash aminophylline Allergy (Verified 01/22/25 06:36) unknown digoxin Allergy (Verified 01/22/25 06:36) unknown enalaprilat (From Vasotec) Allergy (Verified 01/22/25 06:36) unknown tree and shrub pollen Allergy (Verified 01/22/25 06:36) Itching paper tape Allergy (Intermediate, Uncoded 01/22/25 06:36) Skin Rash, red and sore Precautions Isolation Standard precaution 02/09/25 15:00 IV IV Catheter Type [Right Peripheral IV Antecubital] IV Catheter Gauge [Right 18 Antecubital] Diagnostics 02/09/25 02/09/25 02/09/25 Range/Units 20:18 17:05 14:55 WBC 8.44 (4.4-10.8) 10^3/uL RBC 4.29 (3.93-5.22) 10^6/uL Hgb 11.4 (11.2-15.7) g/dL Hct 37.8 (36.0-46.0) % MCV 88 (80-95) fL MCH 26.6 L (27.0-33.0) pg MCHC 30.2 L (32.0-36.0) % RDW 18.3 H (11.7-14.6) % Plt Count 306 (130-400) 10^3/uL MPV 9.7 (8.0-11.0) fL Immature Gran % 0.9 % Neutrophils % 87.9 % Lymphocytes % 1.7 % Monocytes % 7.8 % Eosinophils % 1.3 % Basophils % 0.4 % Nucleated RBC % 0.0 (0.0-0.3) % Absolute Neutrophils 7.42 H (1.2-6.7) 10^3/uL Absolute Lymphocytes 0.14 L (1.2-3.4) 10^3/uL Absolute Monocytes 0.66 (0.1-0.8) 10^3/uL Absolute Eosinophils 0.11 (0.0-0.7) 10^3/uL Absolute Basophils 0.03 (0.0-0.2) 10^3/uL PT 30.6 H (9.1-11.1) sec INR 3.3 H (0.9-1.1) VBG pH 7.35 (7.31-7.41) VBG pCO2 49 (41-51) mmHg VBG pO2 38 mmHg VBG HCO3 27 (23-28) mmol/L VBG Total CO2 25 (24-29) mmol/L VBG O2 Saturation 64 % VBG Base Excess 2 (-2-3) mmol/L VBG Lactate 2.5 H* (<or=2.0) mmol/L Sodium 134 L (136-145) mmol/L Potassium 4.8 (3.5-5.1) mmol/L Chloride 99 (98-107) mmol/L Carbon Dioxide 28.4 (21.0-32.0) mmol/L Anion Gap 6.6 (3-11) mmol/L BUN 32 H (7-18) mg/dL Creatinine 1.4 H (0.55-1.02) mg/dL Est GFR (CKD-EPI 2020) 36.87 (mL/min/1.73m2) Glucose 221 H (74-106) mg/dL Calcium 8.4 L (8.5-10.1) mg/dL Total Bilirubin 0.6 (0.2-1.0) mg/dL AST 23 (15-37) U/L ALT 27 (14-59) U/L Alkaline Phosphatase 175 H (46-116) U/L Troponin I 31 31 (<or=51) ng/L NT-Pro-B Natriuret Pep 81619 H (<300) pg/mL Total Protein 7.1 (6.4-8.2) g/dL Albumin 3.2 L (3.4-5.0) g/dL COVID-19 Source Pending SARS-CoV-2 (PCR) Pending Influenza Type A (PCR) Pending Influenza Type B (PCR) Pending RSV (PCR) Pending Add-On Test Request DONE Intake and Output - 24 Hour Total 02/09/25 14:15 thru 02/09/25 14:26 Weight 65.771 kg Falls Risk Assessment History of Falls Previous History 02/09/25 15:00 Contributing Factors Unstable 02/09/25 15:00 Ambulatory Aids Uses ambulatory device 02/09/25 15:00 Tubes/Lines With any additional score 02/09/25 15:00 Gait Evaluation No gait disturbance 02/09/25 15:00 Fall Total Score 53 02/09/25 15:00 Level of Risk High Risk 02/09/25 15:00 Problems (Last Reviewed 02/09/25 @ 19:17 by Dimas Faye) Acute HFrEF (heart failure with reduced ejection fraction) (Acute) H/O mitral valve replacement with mechanical valve (Acute) Hypothyroid (Chronic) Acute heart failure with reduced ejection fraction (HFrEF, <= 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 (Acute) Cardiomyopathy (Acute) v v v v v v v v v Sending and/or Receiving Nurses: Please use comment section below to note any information pertinent to the patient hand-off not included above. Information / Comments: Pt arrives from longterm, c/o SOB. Audible crackles upon arrival, BLE edema, and weeping. BPs soft on L arm, but best at R wrist. 18G RAC, 20mg IVP lasix given. Report received from: Merary Santillan RN
[2025-02-09 21:00] LABS: COVID-19 PCR Negative (Negative); RSV PCR Negative (Negative)
[2025-02-09 21:20] LABS: Glucose 500 mg/dL (Negative)
[2025-02-09 21:34] LABS: C & S Indicated? Yes; RBC Negative HPF (0-2); WBC 20-50 HPF (0-5)
[2025-02-09 21:54] LABS: TSH (W/Ref FT4) 22.92 uIU/mL (0.36-3.74)
[2025-02-09] MEDS: Albuterol/Ipratropium 3 ML UPD VIAL IH (21:57)
[2025-02-09] MEDS: Acetaminophen 325 MG TAB 650 MG PO (21:58)
[2025-02-09] MEDS: Atorvastatin 10 MG TAB PO (21:58)
[2025-02-09] MEDS: Midodrine 2.5 MG TAB PO (21:59)
[2025-02-09] MEDS: Insulin Aspart 300 UNITS/3 ML PEN SC (22:10)
[2025-02-09] MEDS: Budesonide/Formoterol 160/4.5 6 GM 60 PUFF INH IH (22:10)
[2025-02-09] MEDS: Normal Saline Flush 10 ML SYR IVP (22:11)
[2025-02-09] MEDS: Warfarin 5 MG TAB PO (22:17)
[2025-02-10] VITALS (7 sets, daily range): BP systolic 74–95; BP diastolic 52–70; PULSE 73–105; RESP 15–18; TEMP 36–37.6; O2SAT 93–98
[2025-02-10] MEDS: Levothyroxine 75 MCG TAB 37.5 MCG PO (05:52)
[2025-02-10 06:29] LABS: HCT 33.4 % (36.0-46.0); HGB 10.2 g/dL (11.2-15.7); MCH 26.7 pg (27.0-33.0); MCHC 30.5 % (32.0-36.0); MCV 87 fL (80-95); MPV 9.6 fL (8.0-11.0); Platelet Count 246 10^3/uL (130-400); RBC 3.82 10^6/uL (3.93-5.22); RDW 18.5 % (11.7-14.6); RDW-SD 57.7 fL; WBC 6.73 10^3/uL (4.4-10.8)
[2025-02-10 07:02] LABS: ALT 19 U/L (14-59); AST 19 U/L (15-37); Albumin 2.7 g/dL (3.4-5.0); Alkaline Phosphatase 134 U/L (46-116); Anion Gap 4.1 mmol/L (3-11); BUN 28 mg/dL (7-18); Bilirubin, Total 0.7 mg/dL (0.2-1.0); CO2 27.9 mmol/L (21.0-32.0); Calcium 8.3 mg/dL (8.5-10.1); Chloride 103 mmol/L (98-107); Estimated GFR 44.36 (mL/min/1.73m2); Glucose 139 mg/dL (74-106); Magnesium 2.6 mg/dL (1.8-2.4); Potassium 4.6 mmol/L (3.5-5.1); Prothrombin Time 35.1 sec (9.1-11.1); Sodium 135 mmol/L (136-145); Total Protein 6.0 g/dL (6.4-8.2)
[2025-02-10 07:08] LABS: INR 3.8 (0.9-1.1)
[2025-02-10] MEDS: Budesonide/Formoterol 160/4.5 6 GM 60 PUFF INH IH ×2 (07:36→19:42)
[2025-02-10] MEDS: Spironolactone 25 MG TAB PO (08:15)
[2025-02-10] MEDS: Cetirizine 10 MG TAB PO (08:16)
[2025-02-10] MEDS: Cholecalciferol (Vitamin D3) 1,000 UNIT TAB 1000 UNITS PO (08:16)
[2025-02-10] MEDS: Midodrine 2.5 MG TAB PO ×3 (08:16→20:12)
[2025-02-10] MEDS: Normal Saline Flush 10 ML SYR IVP ×3 (08:18→20:13)
[2025-02-10] MEDS: Amiodarone 200 MG TAB PO (08:18)
[2025-02-10] MEDS: Furosemide 40 MG/4 ML VIAL IVP ×2 (08:18→15:53)
[2025-02-10] MEDS: Potassium Chloride 10 MEQ TABCR PO (08:18)
[2025-02-10] MEDS: Empaglifozin 10 MG TAB PO (08:20)
--- NOTE | 2025-02-10 08:57 | INITIAL_ITS ---
Date of service: 02/10/25 Time of Service: 08:58 Care Management Initial Assmt Initial Assessment Reason for Hospitalization: Acute heart failure Functional Status/Living Situation Patient Presentation: Sushma presented to the ED yesterday afternoon with c/o increased shortness of breath from the [facility], where Sushma has been since 02/07 for short term rehab. Sushma was living alone in [facility], prior to her admission on 01/22. She transferred to [facility] on 02/07 for short-term rehab. Sushma's son, Art, is very involved and visits Sushma every day, and also is her main source of transportation. Sushma has been sleeping each of 4 times that CM has tried to visit today. She was not woken by CM as she was just recently a patient her. CM did speak with Art to give an update. Art is very worried that his mom may pass soon. Town of Residence: [facility] Resides with: Alone Significant Other/Family: Local (4 children. Art and Flaca live locally, the other 2 children live out of state. Many grandchildren and great grandchildren.) Caregiver/Guardian: Currently, Sushma is residing at [facility] for short term rehab Natural Supports: son Art is biggest support Employment Status: Retired Instrumental Activities of Daily Living (ADLs): Requires support (prior to last admission, Sushma was independent at home) Activities/Hobbies/SocialSupport: enjoys playing Bingo on Mondays and also likes to cook her own food Medications Medication Management: No Issues/Barriers identified Physical Functioning/Mobility Assistive Device: walker and a cane Advance Directives Advance Directives: Do you have an Advance Directive: Y , 08:51 AD On File at [facility]: Y 11/30/24, 08:51 Date Asked 11/03/24 11/03/24, 13:17 AD Date Reviewed 02/09/25 Today, 07:37 COLST On File at [facility] COLST Date Scanned Code Status Resuscitation Status DNR/DNI Insurance Coverage/Financial Issues Insurance: Medicare Medicaid Care Team Visit Care Team Role Provider Type Baldo Mitchell MD MD [facility] STAFF PHYSICIAN Mell Cueto MD Primary Care Provider [facility] STAFF PHYSICIAN Felipe Ross MD Emergency Provider [facility] STAFF PHYSICIAN Dimas Faye Admit Provider MD [facility] STAFF PHYSICIAN Attending Provider Discharge Potential Discharge Needs: Other (f/u with the [facility] provider) Anticipated Barriers to Discharge: None Identified Patient/Family Education Needs: Review discharge instructions, discuss Ask Me Three Transportation: RCT RCT Transportation: Wheel chair van Plan: Anticipate that Susham will return to [facility] for continued rehab once she is medically stable. She will f/u with the facility provider and continue per her plan of care. Sushma will transport via RCT w/c van. CM will continue to follow. Social Determinants of Health Screening Social Determinants of health last assessed in clinic: 02/10/25 Will the Patient Participate in the Screening?: Yes Do you worry about having a steady place to live?: yes What is your living situation today?: I have housing today, but am worried about losing it Problems where you live: no known problems In the past 12 months, have you had to go without electric, gas, oil or water in your home?: no 1. Within the past 12 months, we worried whether our food would run out before we got money to buy more.: Don't know/refused 2. Within the past 12 months, the food we bought just didn't last and we didn't have money to get more.: Don't know/refused Has lack of transportation kept you from medical appointments or from doing things needed for daily living?: no Has anyone in your life made you feel unsafe or unsupported?: no How hard is it for you to pay for the very basics like food, housing, medical care, and heating? Would you say it is:: Not hard at all Do you want help finding or keeping work or a job?: I do not need or want help If for any reason you need help with day-to-day activities such as bathing, preparing meals, shopping, managing finances, etc., do you get the help you need?: I need a lot more help How often do you feel lonely or isolated from those around you?: Never Do you speak a language other than Ukrainian at home?: No Does the patient want assistance with any of the above?: No Health Related Social Needs Health related social needs: housing instability, housed, with risk of homelessness (Z59.811) and problems with daily activities (Z73.9) Health related social needs details: lives in [facility] All Active Problems (Updated 02/10/25 @ 06:40 by Dimas Faye) Acute HFrEF (heart failure with reduced ejection fraction) (Acute) Deficit in activities of daily living (ADL) (Acute) Impaired instrumental activities of daily living (Acute) Advanced care planning/counseling discussion (Acute) Palliative care patient (Acute) H/O mitral valve replacement with mechanical valve (Chronic) Anemia (Chronic) Hypothyroid (Chronic) Acute heart failure with reduced ejection fraction (HFrEF, <= 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 (Acute) Cardiomyopathy (Chronic) Heart failure with reduced ejection fraction (Acute) Iron refractory iron deficiency anemia (Acute) Nonhealing nonsurgical wound with fat layer exposed (Acute) Wound of left lower extremity (Acute) Anticoagulated on Coumadin (Acute) Lesion of skin of nose (Acute) Conductive hearing loss in right ear (Acute 02/23/15) Mixed conductive and sensorineural hearing loss of right ear with restricted hearing of left ear (Acute 07/25/16) Sensorineural hearing loss (SNHL) of left ear with restricted hearing of right ear (Acute 07/25/16) Sensorineural hearing loss, bilateral (Acute 02/25/17) Medical History Aortic stenosis, moderate Severe tricuspid regurgitation Abscess Bunion Memory deficit Elevated TSH Type 2 diabetes mellitus Hypocalcemia CKD (chronic kidney disease) Facial skin lesion Hyperlipidemia Asthma CAD (coronary artery disease) A-fib HTN (hypertension) Diabetes mellitus Lactose intolerance Osteoporosis Diverticulitis Allergic rhinitis Hiatal hernia Mitral valve stenosis Insomnia Leg cramps Surgical History Status post excisional debridement (~02/2024) Left Leg Mitral valve replaced History of bladder suspension procedure History of tonsillectomy H/O adenoidectomy Family History Father , d. 60 Throat cancer Mother , d. 80 Heart disease Social History Smoking/Tobacco Use Status: Never Smoking risk assessment performed?: Yes Alcohol Intake: never Drug use: Never Substance use type: does not use Household members: none Housing: long-term Number of Children: 4 Do you feel safe at home: Yes Do you feel safe in your relationship?: Yes Additional Social history: . lives alone in [address]. son lives nearby Readmission Within the Past 30 Days Yes or No: Yes Date of First Admission Date of 1st Admission: 01/22/25 Date of this Admission Date of Admission: 02/09/25 This admission was: Through ED Office Visit Since 1st Admission Have you seen your PCP in the office since discharge?: Yes Describe barriers for scheduling or getting an appointment: Sushma was discharged to [facility] after her first admission. She saw the facility provider. If the patient came from Ext. Facility Call the Facility to discuss the patient's admission: Sushma was c/o increased shortness of breath, which was not present the day prior. Noted to have increased lower extremity edema. Unable to adequately treat her symptoms at the facility. Was not prescribed a diuretic on discharge Ask the Care Team Members: What do you think caused the patient to be readmitted: Sushma has worsening heart failure and was not prescribed diuretics on discharge. ED visits How many ED visits in the past 12 months: 8
[2025-02-10] MEDS: Fluticasone NASAL SPRAY 16 GM BTL NS (11:09)
[2025-02-10] MEDS: Insulin Aspart 300 UNITS/3 ML PEN SC ×3 (12:20→22:32)
--- NOTE | 2025-02-10 14:23 | PT.INIE ---
PT Notes Visit Reasons: Acute Exacerbation of Chronic CHF Physical Therapy Inpatient Initial Evaluation Date: 02/10/2025 Referring Doctor: Dr Mitchell PT Orders: PT CONSULT: PT Evaluation and treatment Precautions: standard ,Ornelas cath Patient Profile/Admitting Diagnosis: Pt is an 84 yo female who presented to the ED on 02/09/25 from SNF with CC of chest pain. Pt treated with sublingual nitroglycerin. She began to have increased swelling and shortness of breath return to the ED with acute exacerbation of her CHF. She was restarted on IV Lasix and continue midodrine along with Aldactone. Pt admitted to Med Surg unit for medical management. PMHX: Anemia (Chronic) Acute kidney injury superimposed on CKD (Acute) Hypothyroid (Chronic) Acute heart failure with reduced ejection fraction (HFrEF, <= 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 (Acute) Cardiomyopathy (Acute) Atrial fibrillation with rapid ventricular response (Acute) Heart failure with reduced ejection fraction (Acute) Iron refractory iron deficiency anemia (Acute) Non healing nonsurgical wound with fat layer exposed (Acute) Wound of left lower extremity (Acute) Anticoagulated on Coumadin (Acute) Lesion of skin of nose (Acute) Conductive hearing loss in right ear (Acute 02/23/15) Mixed conductive and sensorineural hearing loss of right ear with restricted hearing of left ear (Acute 07/25/16) Sensorineural hearing loss (SNHL) of left ear with restricted hearing of right ear (Acute 07/25/16) Sensorineural hearing loss, bilateral (Acute 02/25/17) Medical History Aortic stenosis, moderate Severe tricuspid regurgitation Abscess Bunion Memory deficit Elevated TSH Type 2 diabetes mellitus Hypocalcemia CKD (chronic kidney disease) Facial skin lesion Hyperlipidemia Asthma CAD (coronary artery disease) A-fib HTN (hypertension) Diabetes mellitus Lactose intolerance Osteoporosis Diverticulitis Allergic rhinitis Hiatal hernia Mitral valve stenosis Insomnia Leg cramps Surgical History Status post excisional debridement (~02/2024) Left LegMitral valve replaced History of bladder suspension procedure History of tonsillectomy H/O adenoidectomy Social History/Home Situation:Pt has been at [facility] for STR since discharge from hospital on 02/07/2025. Prior to recent hospitalization, Pt resided in [facility] with 2 steps to enter without rail. Pt independent with FWW or SPC. Independent ADLs, Son visits daily and takes her shopping. She states she enjoys [employer] Equipment Owned/DME: SPC, FWW Subjective: Pt reports she has not had any further chest pain Objective: General Observation: elderly female semireclined in bed. BLE 3+ pitting edema Mental Status: Alert and oriented x 4 able to follow instructions Pain:denies pain ROM: [] Right Upper Extremity: WFL Left Upper Extremity: WFL AAROM shoulder flexion and abduction , elbow and wrist and hand WFL AROM Right Lower Extremity: WFL DF to neutral Left Lower Extremity: WFL DF to neutral Strength: [] Right Upper Extremity:grossly 3/5 Left Upper Extremity: shoulder 3-/5, elbow wrist 3/5 hand grasp good Right Lower Extremity: grossly 3-/5 hips, 3/5 knee and ankle Left Lower Extremity: grossly 3-/5 hip, knee and ankle 3/5 Sensation: intact Bed Mobility/Transfers: [] Supine to sit min A with HOB elevated Sit to stand min A cues for hand placement Stand to sit CGA cues for hand placement Bed to/from commode with FWW CGA Gait: unable to amb with FWW Balance: [] Static Sitting:Good Dynamic Sitting:Fair Static Standing: Fair Dynamic Standing:Fair- Special Tests: [] Mobility Limitations Standardized Measure [] [facility] AM-PAC 6 clicks Basic Mobility Inpatient Short Form: [] Raw Score: 15 CMS Score:57.70 % deficit Informed Consent/Education: Patient instructed in purpose of PT consult. Assessment: Patient is an 84 yo female with complex PMH who presents with clinical signs and symptoms consistent with current/admitting diagnoses that have resulted to mobility limitations, gait instability, generalized weakness, and impairment of motor control as demonstrated by the following impairment level findings: 1. Decreased strength to BUE/BLE major muscle groups 2. Impaired standing balance 3. Limitation of joint range of motion in left shoulder 4. impaired functional activity tolerance 5. Intermittent chest pain Impairments are contributing to the following functional limitations: 1. Inability to safely ambulate without assistive device 2. Increase completion time for mobility ADL performance 3. Increased fall risk 4. difficulty performing transfers independently 5. difficulty performing stairs safely without assistance. 6. decline in bed mobility skills Patient is assessed as a moderate complexity based on the following: History: 84-year-old female with impairment level findings, functional limitations, and past medical history as indicated above Examination: Demonstrable impairment in strength, balance, and mobility level with underlying impairments and functional limitations as documented above Presentation: stable / evolving Decision Making:moderate Goals: 1.SBA bed mobility 2. SBA transfers with FWW 3. CGA with FWW >25 feet x 2 Plan of Care/Treatment Plan: 1-2x/day, 7 days/week x 1 week. Plan of care has been reviewed with the BOOKS SALESPERSON providing the service under Physical Therapy direction. Initiate Physical Therapy intervention for strengthening, bed mobility, transfers, gait, stairs, balance training, use of assistive device. DISCHARGE RECOMMENDATIONS:Return to SNF with skilled PT TREATMENT CODE/TIME: 71040/ [id number] Thank you for the opportunity to participate in the care of this patient. Amy Patino, PT [facility]
--- NOTE | 2025-02-10 19:46 | PGE_ITS ---
Date of Service Date of service: 02/10/25 Time of Service: 11:00 Assessment and Plan Assessment and plan (1) Acute heart failure with reduced ejection fraction (HFrEF, <= 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: Start date: 02/09/25 Status: Acute Assessment and plan: December 2024 echo with LVEF 25-30%, mechanical mitral valve, mod/severe TR, rheumatic aortic stenosis Acute exacerbation requiring diuresis and monitoring of fluid response (2) Cardiomyopathy: Status: Chronic Assessment and plan: Chronic and worsening the patient on appropriate medical therapy which will be continued along with increased diuresis. (3) H/O mitral valve replacement with mechanical valve: Status: Chronic Assessment and plan: Continue warfarin monitor daily PT/INR and adjusting Coumadin as needed. This has been adjusted recently and will need to be watched closely. (4) Type 2 diabetes mellitus: Assessment and plan: A1C 6.9 on January 06 Home regimen empagliflozin, continue Continue correctional insulin (5) CKD (chronic kidney disease): Assessment and plan: Stable appearing with monitoring clinically. This will be worsened by increased diuresis. (6) Hypothyroid: Status: Chronic Assessment and plan: Check TSH and continue outpatient replacement dosing. (7) CAD (coronary artery disease): Assessment and plan: Continue outpatient medical therapy. Patient is on low-dose statin. (8) HTN (hypertension): Assessment and plan: Continue outpatient medical therapy and adjust as needed with diuresis possibly affecting blood pressure. Subjective Subjective Interval history since last seen: Patient's chest pain has resolved. She was able to work with PT today. Exam Narrative Exam Narrative: General: This is a pleasant, elderly woman in no distress HEENT: Normocephalic, atraumatic CV: irregularly irregular, systolic murmur Resp: Diminished breath sounds bilaterally with bibasilar rales Abd: soft, NTNT MSK: voluntary motion x4 Neuro: awake, alert, no focal deficits Objective Last Vital Signs Temp 37.6 C 02/10/25 19:29 Pulse 105 H 02/10/25 19:29 Resp 15 02/10/25 19:29 BP 95/70 L 02/10/25 19:29 Pulse Ox 93 02/10/25 19:29 Laboratory Results - last 24 hr 02/09/25 02/09/25 02/09/25 17:05 20:18 21:00 WBC RBC Hgb Hct MCV MCH MCHC RDW Plt Count MPV PT INR Sodium Potassium Chloride Carbon Dioxide Anion Gap BUN Creatinine Est GFR (CKD-EPI 2020) Glucose Calcium Magnesium Total Bilirubin AST ALT Alkaline Phosphatase Total Protein Albumin TSH 22.92 H Free T4 0.83 Urine Color Yellow Urine Clarity Cloudy Urine pH 5.0 Ur Specific [place] 1.015 Urine Protein Negative Urine Ketones Negative Urine Blood Trace-lysed H Urine Nitrite Negative Urine Bilirubin Negative Urine Urobilinogen 0.2 Ur Leukocyte Esterase Moderate H Urine RBC Negative Urine WBC 20-50 H Ur Epithelial Cells Rare Urine Crystals Negative Urine Bacteria Many Urine Mucus Negative Urine Other Many Yeast Ur Culture Indicated? Yes Urine Glucose 500 H COVID-19 Source Nasopharynx SARS-CoV-2 (PCR) Negative Influenza Type A (PCR) Negative Influenza Type B (PCR) Negative RSV (PCR) Negative 02/10/25 06:00 WBC 6.73 RBC 3.82 L Hgb 10.2 L Hct 33.4 L MCV 87 MCH 26.7 L MCHC 30.5 L RDW 18.5 H Plt Count 246 MPV 9.6 PT 35.1 H INR 3.8 H Sodium 135 L Potassium 4.6 Chloride 103 Carbon Dioxide 27.9 Anion Gap 4.1 BUN 28 H Creatinine 1.2 H Est GFR (CKD-EPI 2020) 44.36 Glucose 139 H Calcium 8.3 L Magnesium 2.6 H Total Bilirubin 0.7 AST 19 ALT 19 Alkaline Phosphatase 134 H Total Protein 6.0 L Albumin 2.7 L TSH Free T4 Urine Color Urine Clarity Urine pH Ur Specific [place] Urine Protein Urine Ketones Urine Blood Urine Nitrite Urine Bilirubin Urine Urobilinogen Ur Leukocyte Esterase Urine RBC Urine WBC Ur Epithelial Cells Urine Crystals Urine Bacteria Urine Mucus Urine Other Ur Culture Indicated? Urine Glucose COVID-19 Source SARS-CoV-2 (PCR) Influenza Type A (PCR) Influenza Type B (PCR) RSV (PCR) Time Spent with Patient Time Spent with Patient: 25-34 minutes Time was spent: preparing to see the patient(eg.review tests), obtaining and/or reviewing separately otained hiistory, ordering medications,tests, procedures, referring, communicating with other health patient care director, indepentently interpreting results, counseling the patient and care coordination
[2025-02-10] MEDS: Atorvastatin 10 MG TAB PO (20:12)
[2025-02-10] MEDS: Albuterol 2.5 MG/3 ML INH SOLN VIAL IH (23:22)
[2025-02-11] VITALS (11 sets, daily range): BP systolic 88–133; BP diastolic 37–64; PULSE 70–108; RESP 14–26; TEMP 36–37.3; O2SAT 89–98
[2025-02-11] MEDS: MORPHine 2 MG/ML SYR IVP ×2 (02:13→22:14)
[2025-02-11] MEDS: Normal Saline Flush 10 ML SYR IVP ×3 (02:14→19:30)
[2025-02-11] MEDS: Levothyroxine 75 MCG TAB 37.5 MCG PO (06:47)
[2025-02-11 06:56] LABS: HCT 36.1 % (36.0-46.0); HGB 10.8 g/dL (11.2-15.7); MCH 26.5 pg (27.0-33.0); MCHC 29.9 % (32.0-36.0); MCV 89 fL (80-95); MPV 10.2 fL (8.0-11.0); Platelet Count 273 10^3/uL (130-400); RBC 4.07 10^6/uL (3.93-5.22); RDW 18.7 % (11.7-14.6); RDW-SD 60.2 fL; WBC 7.37 10^3/uL (4.4-10.8)
[2025-02-11 07:26] LABS: Prothrombin Time 41.6 sec (9.1-11.1)
[2025-02-11 07:29] LABS: INR 4.6 (0.9-1.1)
[2025-02-11 07:35] LABS: ALT 29 U/L (14-59); AST 21 U/L (15-37); Albumin 2.6 g/dL (3.4-5.0); Alkaline Phosphatase 186 U/L (46-116); Anion Gap 6.3 mmol/L (3-11); BUN 32 mg/dL (7-18); Bilirubin, Total 0.6 mg/dL (0.2-1.0); CO2 27.7 mmol/L (21.0-32.0); Calcium 8.4 mg/dL (8.5-10.1); Chloride 101 mmol/L (98-107); Estimated GFR 40.30 (mL/min/1.73m2); Glucose 183 mg/dL (74-106); Magnesium 2.6 mg/dL (1.8-2.4); Potassium 5.1 mmol/L (3.5-5.1); Sodium 135 mmol/L (136-145); Total Protein 6.0 g/dL (6.4-8.2)
[2025-02-11] MEDS: Potassium Chloride 10 MEQ TABCR PO (07:56)
[2025-02-11] MEDS: Cholecalciferol (Vitamin D3) 1,000 UNIT TAB 1000 UNITS PO (07:57)
[2025-02-11] MEDS: Midodrine 2.5 MG TAB PO ×3 (07:57→19:30)
[2025-02-11] MEDS: Cetirizine 10 MG TAB PO (07:57)
[2025-02-11] MEDS: Empaglifozin 10 MG TAB PO (07:57)
[2025-02-11] MEDS: Spironolactone 25 MG TAB PO (07:57)
[2025-02-11] MEDS: Amiodarone 200 MG TAB PO (07:57)
[2025-02-11] MEDS: Furosemide 40 MG/4 ML VIAL IVP ×2 (07:57→17:12)
[2025-02-11] MEDS: Insulin Aspart 300 UNITS/3 ML PEN SC ×4 (08:10→22:25)
[2025-02-11] MEDS: Budesonide/Formoterol 160/4.5 6 GM 60 PUFF INH IH ×2 (08:37→19:55)
--- NOTE | 2025-02-11 09:35 | PT.INTREAT ---
PT Notes Visit Reasons: Acute Exacerbation of Chronic CHF Inpatient Physical Therapy Treatment Note [facility] Date: 02/11/25 SUBJECTIVE: Sushma states that she is very tired and she was up all night being worked on for her breathing ; her legs are painful. OBJECTIVE: Pt presented semireclined in bed increased BLE Edema to trunk expiratory wheezes noted ? PAIN:c/o B LE pain VITALS: ?monitored by nsg and via telemetry Wt 71.2kg Therapeutic Activities (88140n6): Direct one-on-one instruction in dynamic activities to improve functional performance. ? BED MOBILITY/TRANSFERS? supine to sit: mod A to scoot buttocks to edge? Sit-supine: mod assist with LE. ? Sit-stand: min A from bed x 2 trial and commode x 2 trials? Stand-sit: CGA? x 4 trials? bed to from commode: CGA with FWW very slow stepping 6-8 steps Provided skilled cues and instruction on performance and technique throughout. ASSESSMENT:? pt with decline in activity tolerance today with increased expiratory wheezing noted with functional tasks. Pt unable to tolerate ROM exercises to BLE this session d/t pain. Pt requires increased time to perform all functional mobility d/t dyspnea, pain and fatigue. Pt limited by BLE edema to her waist. PLAN: will continue to work on her strength and functional mobility to tolerance following PT POC. TREATMENT CODE/TIME: [id number]/ [id number] DISCHARGE RECOMMENDATION: Return to SNF with skilled PT
--- NOTE | 2025-02-11 11:34 | NUR.NOTE ---
Nursing Note: Documentation by EZEQUIEL Girard student reviewed.
--- NOTE | 2025-02-11 13:24 | CHAPLAIN ---
Sushma and I remembered each other from a previous admission recently. She said she was feeling short of breath this morning so I didn't stay long. She said her so knows she's here and she's talked with him on the phone.. I checked in again later and she was sleeping, but I left a prayer shawl for her.
--- NOTE | 2025-02-11 15:26 | PT.INTREAT ---
PT Notes Visit Reasons: Acute Exacerbation of Chronic CHF Date: 02/11/25 SUBJECTIVE: pt in bed when approached for therapy this afternoon, reports feeling very exhausted, pt wheezing at rest, BLE swelling. refused OOB activity agreed to bed level exercise and seated activity. OBJECTIVE: BLE Edema to trunk, expiratory wheezes ? PAIN: BLE VITALS: monitored by nsg and via telemetry Therapeutic Activities ([id number]): Direct one-on-one instruction in dynamic activities to improve functional performance. ? BED MOBILITY/TRANSFERS? Bed mobility L/R: min A Supine to EOB: min A EOB to supine: min A Therapeutic procedures [id number] 15mins: Instruction in therapeutic exercises to develop strength and endurance, range of motion and flexibility. Provided skilled instruction in proper exercise performance: Provided skilled manual cues to facilitate proper muscle recruitment and/or movement pattern: Supine to sitting min A Static balance activity in seated position 5mins Seated marching [id number] Seated weight shifting L/R [id number] Seated LAQ 70b6pbl Seated SAQ [id number] Seated hip abduction [id number] Seated multidirectional reaching L/R UE ? ? ASSESSMENT:? pt reports she is very exhausted and refused further engagement this afternoon, reports she would like to walk tomorrow if she could have a good night rest tonight. PLAN: will continue to work on her strength and functional mobility to tolerance following PT POC. TREATMENT CODE/TIME: [id number] 15mins (3:10-3:25pm) DISCHARGE RECOMMENDATION: SNF
--- NOTE | 2025-02-11 16:01 | W.PALLCONSUL ---
Date of service: 02/11/25 Time of Service: 16:01 History of Present Illness Narrative: Sushma was seen for Palliative consultation. She was admitted from the ED after being discharged to [facility] 2 days prior. She was admitted for CHF exacerbation with CHF with reduced EF. She was alone for the visit. She was lying in bed at the time of the visit. She feels fatigued and weak. Reviewed GOC. She met with Palliative during her recent hospitalization, at that time, she decided to change her CODE STATUS to DNR/DNI and a COLST was completed at that time. Reviewed overall GOC. She states she has not really had time to think about the option of comfort care. She is considering transitioning to comfort-focused care, possibly hospice but for now, she is okay with treatment at the hospital. 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 Reviewed her heart function and most recent echo that shows LVEF of 25%. Reviewed that her team at the long term is focusing on rehab/working with PT with goal of getting stronger at this time. If she decides that she no longer wants to participate with PT or if she is too weak or tired, she can make the transition to [employer]. Will continue to discuss. Assessment and Plan Assessment and plan (1) Acute heart failure with reduced ejection fraction (HFrEF, <= 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: Start date: 02/09/25 Status: Resolved Assessment and plan: December 2024 echo with LVEF 25-30%, mechanical mitral valve, mod/severe TR, rheumatic aortic stenosis Currently admitted for acute exacerbation requiring diuresis. She presented back to the ED just 2 days after she was discharged to the rehab. (2) Cardiomyopathy: Status: Chronic Assessment and plan: Chronic and worsening. (3) H/O mitral valve replacement with mechanical valve: Status: Chronic Assessment and plan: On warfarin. (4) Type 2 diabetes mellitus: (5) CKD (chronic kidney disease): (6) Hypothyroid: Status: Chronic (7) CAD (coronary artery disease): (8) HTN (hypertension): (9) Palliative care patient: Status: Acute (10) Advanced care planning/counseling discussion: Status: Acute Assessment and plan: Sushma recognizes that she is declining. She recently changed her CODE status to DNR/DNI. She is now at [facility]. Reviewed GOC. She has not given a lot of thought to transition to [employer]. Reviewed what hospice can offer at the rehab. She will continue to think about it. For now, she will be transferred for acute illness. Palliative to f/u at the rehab. Review of Systems Narrative: per HPI PFSH All Active Problems Deficit in activities of daily living (ADL) (Acute) Impaired instrumental activities of daily living (Acute) Advanced care planning/counseling discussion (Acute) Palliative care patient (Acute) H/O mitral valve replacement with mechanical valve (Chronic) Anemia (Chronic) Hypothyroid (Chronic) Cardiomyopathy (Chronic) Heart failure with reduced ejection fraction (Acute) Iron refractory iron deficiency anemia (Acute) Nonhealing nonsurgical wound with fat layer exposed (Acute) Wound of left lower extremity (Acute) Anticoagulated on Coumadin (Acute) Lesion of skin of nose (Acute) Conductive hearing loss in right ear (Acute 02/23/15) Mixed conductive and sensorineural hearing loss of right ear with restricted hearing of left ear (Acute 07/25/16) Sensorineural hearing loss (SNHL) of left ear with restricted hearing of right ear (Acute 07/25/16) Sensorineural hearing loss, bilateral (Acute 02/25/17) Medical History Aortic stenosis, moderate Severe tricuspid regurgitation Abscess Bunion Memory deficit Elevated TSH Type 2 diabetes mellitus Hypocalcemia CKD (chronic kidney disease) Facial skin lesion Hyperlipidemia Asthma CAD (coronary artery disease) A-fib HTN (hypertension) Diabetes mellitus Lactose intolerance Osteoporosis Diverticulitis Allergic rhinitis Hiatal hernia Mitral valve stenosis Insomnia Leg cramps Surgical History Status post excisional debridement (~02/2024) Left Leg Mitral valve replaced History of bladder suspension procedure History of tonsillectomy H/O adenoidectomy Family History Father , d. 60 Throat cancer Mother , d. 80 Heart disease Social History Smoking/Tobacco Use Status: Never Smoking risk assessment performed?: Yes Alcohol Intake: never Drug use: Never Substance use type: does not use Household members: none Housing: long term Number of Children: 4 Do you feel safe at home: Yes Do you feel safe in your relationship?: Yes Additional Social history: . lives alone in home [address]. son lives nearby Exam Narrative Exam Narrative: General: very pleasant, elderly female, lying in hospital bed with HOB elevated. She appears fatigued and chronically ill. HEENT: normocephalic, atraumatic, EOMI, mm slightly dry Neck: supple Respiratory: respirations appear even and unlabored at rest. Wearing O2 via nc. Ext: moves all 4 extremities freely, + significant edema to BLEs. Results Last Vital Signs Temp 36.5 C 02/11/25 11:11 Pulse 88 02/11/25 11:11 Resp 16 02/11/25 11:11 BP 99/37 L 02/11/25 11:11 Pulse Ox 95 02/11/25 11:11 Labs 02/12/25 06:20 02/12/25 06:20 Labs: Laboratory Results - last 24 hr 02/11/25 06:26 WBC 7.37 RBC 4.07 Hgb 10.8 L Hct 36.1 MCV 89 MCH 26.5 L MCHC 29.9 L RDW 18.7 H Plt Count 273 MPV 10.2 PT 41.6 H INR 4.6 H* Sodium 135 L Potassium 5.1 Chloride 101 Carbon Dioxide 27.7 Anion Gap 6.3 BUN 32 H Creatinine 1.3 H Est GFR (CKD-EPI 2020) 40.30 Glucose 183 H Calcium 8.4 L Magnesium 2.6 H Total Bilirubin 0.6 AST 21 ALT 29 Alkaline Phosphatase 186 H Total Protein 6.0 L Albumin 2.6 L Time Spent Time Spent with Patient Time Spent(min): 68
--- NOTE | 2025-02-11 16:26 | CMPROGNOTE_ITS ---
Date of service: 02/11/25 Time of Service: 16:26 Care Management Progress Note Progress Note Text Progress Note Text: Sushma was sitting up in bed when CM met with her this morning. She conversed with CM, but did not seem overly excited about it. She stated that she is tired, and not really feeling much better. She was made aware that CM spoke with her son last night, and she stated that she talked with him last night as well. Sushma is aware that when she discharges, she will return to [facility]. She does not feel strong enough to return home independently at this time. Discharge Potential Discharge Needs: PCP F/U Appt Anticipated Barriers to Discharge: None Identified Patient/Family Education Needs: Review discharge instructions, discuss Ask Me Three Transportation: [facility] Transportation: Wheel chair van Plan: Sushma will transfer back to [facility] for Living once she is medically cleared, likely in the next day or 2. She will f/u with the facility provider and continue per her plan of care. Sushma will transport via [facility] wheelchair van. CM will continue to follow. Social Determinants of Health Screening Social Determinants of health last assessed in clinic: 02/11/25 Will the Patient Participate in the Screening?: Yes Do you worry about having a steady place to live?: yes What is your living situation today?: I have housing today, but am worried about losing it Problems where you live: no known problems In the past 12 months, have you had to go without electric, gas, oil or water in your home?: no 1. Within the past 12 months, we worried whether our food would run out before we got money to buy more.: Don't know/refused 2. Within the past 12 months, the food we bought just didn't last and we didn't have money to get more.: Don't know/refused Has lack of transportation kept you from medical appointments or from doing things needed for daily living?: no Has anyone in your life made you feel unsafe or unsupported?: no How hard is it for you to pay for the very basics like food, housing, medical care, and heating? Would you say it is:: Not hard at all Do you want help finding or keeping work or a job?: I do not need or want help If for any reason you need help with day-to-day activities such as bathing, preparing meals, shopping, managing finances, etc., do you get the help you need?: I need a lot more help How often do you feel lonely or isolated from those around you?: Never Do you speak a language other than [place]ese at home?: No Does the patient want assistance with any of the above?: No Health Related Social Needs Health related social needs: housing instability, housed, with risk of homelessness (Z59.811) and problems with daily activities (Z73.9) Health related social needs details: lives in [facility]
--- NOTE | 2025-02-11 17:23 | PGE_ITS ---
Date of Service Date of service: 02/11/25 Time of Service: 10:00 Assessment and Plan Assessment and plan (1) Acute heart failure with reduced ejection fraction (HFrEF, <= 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: Start date: 02/09/25 Status: Acute Assessment and plan: December 2024 echo with LVEF 25-30%, mechanical mitral valve, mod/severe TR, rheumatic aortic stenosis Acute exacerbation requiring diuresis and monitoring of fluid response Continuing IV furosemide tonight (2) Cardiomyopathy: Status: Chronic Assessment and plan: Chronic and worsening the patient on appropriate medical therapy which will be continued along with increased diuresis. (3) H/O mitral valve replacement with mechanical valve: Status: Chronic Assessment and plan: Continue warfarin monitor daily PT/INR and adjusting Coumadin as needed. This has been adjusted recently and will need to be watched closely. (4) Type 2 diabetes mellitus: Assessment and plan: A1C 6.9 on January 06 Home regimen empagliflozin, continue Continue correctional insulin (5) CKD (chronic kidney disease): Assessment and plan: Stable appearing with monitoring clinically. This will be worsened by increased diuresis. (6) Hypothyroid: Status: Chronic Assessment and plan: Check TSH and continue outpatient replacement dosing. (7) CAD (coronary artery disease): Assessment and plan: Continue outpatient medical therapy. Patient is on low-dose statin. (8) HTN (hypertension): Assessment and plan: Continue outpatient medical therapy and adjust as needed with diuresis possibly affecting blood pressure. Subjective Subjective Interval history since last seen: Ms. Jones is comfortable in bed. Still feeling chest pressure and difficulty with deep inspiration. Exam Narrative Exam Narrative: General: This is a pleasant, elderly woman in no distress HEENT: Normocephalic, atraumatic CV: irregularly irregular, systolic murmur Resp: Diminished breath sounds bilaterally with bibasilar rales Abd: soft, NTND MSK: voluntary motion x4 Neuro: awake, alert, no focal deficits Objective Last Vital Signs Temp 36.5 C 02/11/25 11:11 Pulse 88 02/11/25 11:11 Resp 16 02/11/25 11:11 BP 99/37 L 02/11/25 11:11 Pulse Ox 95 02/11/25 11:11 Laboratory Results - last 24 hr 02/11/25 06:26 WBC 7.37 RBC 4.07 Hgb 10.8 L Hct 36.1 MCV 89 MCH 26.5 L MCHC 29.9 L RDW 18.7 H Plt Count 273 MPV 10.2 PT 41.6 H INR 4.6 H* Sodium 135 L Potassium 5.1 Chloride 101 Carbon Dioxide 27.7 Anion Gap 6.3 BUN 32 H Creatinine 1.3 H Est GFR (CKD-EPI 2020) 40.30 Glucose 183 H Calcium 8.4 L Magnesium 2.6 H Total Bilirubin 0.6 AST 21 ALT 29 Alkaline Phosphatase 186 H Total Protein 6.0 L Albumin 2.6 L Time Spent with Patient Time Spent with Patient: 25-34 minutes Time was spent: preparing to see the patient(eg.review tests), obtaining and/or reviewing separately otained hiistory, ordering medications,tests, procedures, referring, communicating with other health in home caregiver, indepentently interpreting results, counseling the patient and care coordination
[2025-02-11] MEDS: Atorvastatin 10 MG TAB PO (19:29)
[2025-02-11] MEDS: Albuterol 2.5 MG/3 ML INH SOLN VIAL IH (20:44)
[2025-02-12] VITALS (9 sets, daily range): BP systolic 91–108; BP diastolic 52–85; PULSE 58–101; RESP 16–24; TEMP 36–37.3; O2SAT 93–101
[2025-02-12] MEDS: Levothyroxine 75 MCG TAB 37.5 MCG PO (05:53)
[2025-02-12 06:43] LABS: HCT 36.1 % (36.0-46.0); HGB 11.0 g/dL (11.2-15.7); MCH 26.8 pg (27.0-33.0); MCHC 30.5 % (32.0-36.0); MCV 88 fL (80-95); MPV 10.0 fL (8.0-11.0); Platelet Count 269 10^3/uL (130-400); RBC 4.11 10^6/uL (3.93-5.22); RDW 18.6 % (11.7-14.6); RDW-SD 59.4 fL; WBC 7.69 10^3/uL (4.4-10.8)
[2025-02-12 07:08] LABS: INR 4.0 (0.9-1.1); Prothrombin Time 36.6 sec (9.1-11.1)
[2025-02-12 07:20] LABS: ALT 25 U/L (14-59); AST 22 U/L (15-37); Albumin 2.6 g/dL (3.4-5.0); Alkaline Phosphatase 188 U/L (46-116); Anion Gap 8.3 mmol/L (3-11); BUN 30 mg/dL (7-18); Bilirubin, Total 0.6 mg/dL (0.2-1.0); CO2 24.7 mmol/L (21.0-32.0); Calcium 8.6 mg/dL (8.5-10.1); Chloride 100 mmol/L (98-107); Estimated GFR 40.30 (mL/min/1.73m2); Glucose 199 mg/dL (74-106); Magnesium 2.6 mg/dL (1.8-2.4); Potassium 4.9 mmol/L (3.5-5.1); Sodium 133 mmol/L (136-145); Total Protein 6.1 g/dL (6.4-8.2)
[2025-02-12] MEDS: Budesonide/Formoterol 160/4.5 6 GM 60 PUFF INH IH ×2 (08:25→20:12)
[2025-02-12] MEDS: Cetirizine 10 MG TAB PO (08:32)
[2025-02-12] MEDS: Cholecalciferol (Vitamin D3) 1,000 UNIT TAB 1000 UNITS PO (08:32)
[2025-02-12] MEDS: Spironolactone 25 MG TAB PO (08:32)
[2025-02-12] MEDS: Midodrine 2.5 MG TAB PO ×3 (08:32→19:35)
[2025-02-12] MEDS: Potassium Chloride 10 MEQ TABCR PO (08:32)
[2025-02-12] MEDS: Insulin Aspart 300 UNITS/3 ML PEN SC ×4 (08:33→21:37)
[2025-02-12] MEDS: Empaglifozin 10 MG TAB PO (08:33)
[2025-02-12] MEDS: Amiodarone 200 MG TAB PO (08:33)
[2025-02-12] MEDS: Normal Saline Flush 10 ML SYR IVP ×2 (08:33→21:07)
[2025-02-12] MEDS: Furosemide 40 MG/4 ML VIAL IVP (08:33)
[2025-02-12] MEDS: Fluticasone NASAL SPRAY 16 GM BTL NS (08:34)
--- NOTE | 2025-02-12 10:09 | PDOC.CMDIS ---
Date of service: 02/12/25 Time of Service: 10:09 LACE Index Scoring Tool Questions: Length of Stay (in days): 3 Care Management Discharge SDOH Health Related Social Needs: Health related social needs risk of homeless daily activities Health related social needs details [facility] Health related social needs details: lives in [facility]
--- NOTE | 2025-02-12 11:53 | PTTR_ITS ---
PT Notes Visit Reasons: Acute Exacerbation of Chronic CHF Inpatient Physical Therapy Treatment Note [facility] Date: 02/12/25 SUBJECTIVE: Pt in bed when approached for therapy this afternoon, reports feeling very wheezy at rest, BLE swelling. Agreed to perform some ambulation activities. Stressed concern for walking to the door and requested a chair to be placed by the door for rest. Admits she had a better night sleep last night. OBJECTIVE: BLE Edema to trunk, expiratory wheezes ? PAIN: No complaints VITALS: monitored by nsg and via telemetry Therapeutic Activities (36364j2): Direct one-on-one instruction in dynamic activities to improve functional performance. ? BED MOBILITY/TRANSFERS? Bed mobility L/R: min A Supine to EOB: min A EOB to supine: Mod assist x 1 for placement of lower extremities in bed. Verbal cues for proper hand placement for sitting from stand from front wheel walker. GAIT: Patient required min assist x 1 assuming a sit to stand position from ed ge of bed to front wheeled walker. Verbal cues offered for hand positioning on the walker. Patient ambulates 15 feet followed by stand to sit rest. Verbal cues for hand placement arm rest of chair. While sitting in chair therapeutic procedure exercises below were performed. Therapeutic procedures 39994 15mins: Instruction in therapeutic exercises to develop strength and endurance, range of motion and flexibility. Provided skilled instruction in proper exercise performance: Provided skilled manual cues to facilitate proper muscle recruitment and/or movement pattern: Supine to sitting min A Seated marching [id number] Seated weight shifting L/R [id number] Seated LAQ [id number] Seated hip abduction [id number] ? ? ASSESSMENT:?Easily fatigued with increased wheezing with ambulation. Nursing was advised to monitor telemetry during ambulatory activities. No concerns were forwarded to me during her ambulation. Patient needed a little coaxing for ambulation but was agreeable to getting on her feet as well as discussed transferring to chair bedside for lunch which she is again agreeable to. PLAN: Continue to work on her strength and functional mobility to tolerance. TREATMENT CODE/TIME: A.m. session [id number], 80006i9 (11:05 - 11:35) PM Session: Patient refused secondary to continuing bottle of wheezing. Strongly urged patient to even try some bed exercises but she again refused. Point of contact 14:20. DISCHARGE RECOMMENDATION: SNF
[2025-02-12] MEDS: MORPHine 2 MG/ML SYR IVP (13:46)
[2025-02-12] MEDS: Albuterol 2.5 MG/3 ML INH SOLN VIAL IH ×2 (14:04→22:52)
[2025-02-12] MEDS: Furosemide 40 MG TAB PO (14:53)
--- NOTE | 2025-02-12 15:23 | RESPIRATORY ---
02/12/2025 Approx 1410 Called to patient room to give neb for trouble breathing; pt found to have crackles and audible wheeze. to order lasix. Appros 1510 Lasix given and pt condition improving
--- NOTE | 2025-02-12 18:14 | W.PM.PROGNOT ---
Date of Service Date of service: 02/12/25 Time of Service: 11:00 Assessment and Plan Assessment and plan (1) Acute heart failure with reduced ejection fraction (HFrEF, <= 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: Start date: 02/09/25 Status: Acute Assessment and plan: December 2024 echo with LVEF 25-30%, mechanical mitral valve, mod/severe TR, rheumatic aortic stenosis Acute exacerbation requiring diuresis and monitoring of fluid response Small fluid bolus given for dehydration, but she did not tolerate it, needed duonebs IV diuresis stopped and PO lasix resumed (2) Cardiomyopathy: Status: Chronic Assessment and plan: Chronic and worsening the patient on appropriate medical therapy which will be continued along with increased diuresis. (3) H/O mitral valve replacement with mechanical valve: Status: Chronic Assessment and plan: Continue warfarin monitor daily PT/INR and adjusting Coumadin as needed. This has been adjusted recently and will need to be watched closely. INR above 4, adjusted regimen to 2.5 mg 3x/week and 5 mg 4x/week (4) Type 2 diabetes mellitus: Assessment and plan: A1C 6.9 on January 06 Home regimen empagliflozin, continue Continue correctional insulin (5) CKD (chronic kidney disease): Assessment and plan: Stable appearing with monitoring clinically. This will be worsened by increased diuresis. (6) Hypothyroid: Status: Chronic Assessment and plan: Check TSH and continue outpatient replacement dosing. (7) CAD (coronary artery disease): Assessment and plan: Continue outpatient medical therapy. Patient is on low-dose statin. (8) HTN (hypertension): Assessment and plan: Continue outpatient medical therapy and adjust as needed with diuresis possibly affecting blood pressure. Subjective Subjective Interval history since last seen: Ms. Jones had difficulty breathing this morning after a small fluid bolus. She has had breathing treatment and has been restarted on diuretics. Exam Narrative Exam Narrative: General: This is a pleasant, elderly woman in no distress HEENT: Normocephalic, atraumatic CV: irregularly irregular, systolic murmur Resp: Diminished breath sounds bilaterally with bibasilar rales Abd: soft, NTND MSK: voluntary motion x4 Neuro: awake, alert, no focal deficits Objective Last Vital Signs Temp 36.1 C L 02/12/25 13:54 Pulse 58 L 02/12/25 14:12 Resp 24 02/12/25 14:12 BP 100/55 L 02/12/25 13:54 Pulse Ox 97 02/12/25 14:12 Laboratory Results - last 24 hr 02/12/25 06:20 WBC 7.69 RBC 4.11 Hgb 11.0 L Hct 36.1 MCV 88 MCH 26.8 L MCHC 30.5 L RDW 18.6 H Plt Count 269 MPV 10.0 PT 36.6 H INR 4.0 H Sodium 133 L Potassium 4.9 Chloride 100 Carbon Dioxide 24.7 Anion Gap 8.3 BUN 30 H Creatinine 1.3 H Est GFR (CKD-EPI 2020) 40.30 Glucose 199 H Calcium 8.6 Magnesium 2.6 H Total Bilirubin 0.6 AST 22 ALT 25 Alkaline Phosphatase 188 H Total Protein 6.1 L Albumin 2.6 L Time Spent with Patient Time Spent with Patient: 25-34 minutes Time was spent: preparing to see the patient(eg.review tests), obtaining and/or reviewing separately otained hiistory, ordering medications,tests, procedures, referring, communicating with other health pediatric critical care nurse, indepentently interpreting results, counseling the patient and care coordination
[2025-02-12] MEDS: Atorvastatin 10 MG TAB PO (19:34)
[2025-02-13] MEDS: MORPHine 2 MG/ML SYR IVP (00:14)
[2025-02-13 00:29] VITALS: BP 88/54; RESP 16; O2SAT 92
[2025-02-13 03:24] VITALS: BP 71/51; PULSE 68; RESP 18; TEMP 37.1; O2SAT 90
[2025-02-13 03:35] VITALS: BP 121/67
[2025-02-13] MEDS: Levothyroxine 75 MCG TAB 37.5 MCG PO (06:20)
[2025-02-13 06:58] LABS: INR 3.2 (0.9-1.1); Prothrombin Time 29.6 sec (9.1-11.1)
[2025-02-13 07:33] VITALS: PULSE 87; RESP 16; TEMP 36.9; O2SAT 93
[2025-02-13] MEDS: Budesonide/Formoterol 160/4.5 6 GM 60 PUFF INH IH (07:38)
[2025-02-13] MEDS: Cholecalciferol (Vitamin D3) 1,000 UNIT TAB 1000 UNITS PO (08:35)
[2025-02-13] MEDS: Insulin Aspart 300 UNITS/3 ML PEN SC ×2 (08:35→12:04)
[2025-02-13] MEDS: Potassium Chloride 10 MEQ TABCR PO (08:36)
[2025-02-13] MEDS: Cetirizine 10 MG TAB PO (08:36)
[2025-02-13] MEDS: Midodrine 2.5 MG TAB PO ×2 (08:36→14:15)
[2025-02-13] MEDS: Spironolactone 25 MG TAB PO (08:36)
[2025-02-13] MEDS: Amiodarone 200 MG TAB PO (08:36)
[2025-02-13] MEDS: Empaglifozin 10 MG TAB PO (08:36)
[2025-02-13] MEDS: Fluticasone NASAL SPRAY 16 GM BTL NS (08:37)
[2025-02-13] MEDS: Normal Saline Flush 10 ML SYR IVP (08:37)
[2025-02-13 08:44] VITALS: BP 125/70
--- NOTE | 2025-02-13 09:17 | PDOC.CMDIS ---
Date of service: 02/13/25 Time of Service: 15:20 LACE Index Scoring Tool Questions: Length of Stay (in days): 4 - 6 Was the patient admitted via the E.D.?: Yes Comorbidities: Congestive Heart Failure and Liver or Renal Disease E.D. Visits: 4 Answers: Total Score: 16 Risk of Readmission: High Risk Care Management Discharge Plan Reason for Hospitalization: Acute exacerbation of chronic CHF Discharge Plan: Sushma will return to [facility] for resumption of short term rehab. She transported via [employer] w/c van, coordinated by JASON. She will follow up with her PCP and discharge plan of care. She agrees to this plan. Patient/Family Education Needs: Review discharge instructions and limitations, discussion of self care needs including ask me three. Services Needed at Discharge: Longterm Facility ([facility]) and Transportation ([facility] W[facility] van. CM notified Marjorie via Email, and discussed her arrival time and mode with the w/e oil field equipment mechanic supervisor ) SDOH Health Related Social Needs: Health related social needs risk of homeless daily activities Health related social needs details [place] [facility] Health related social needs details: [place] [facility]
--- NOTE | 2025-02-13 11:25 | DSE_ITS ---
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: Status: Acute Asessment and Plan: December 2024 echo with LVEF 25-30%, mechanical mitral valve, mod/severe TR, rheumatic aortic stenosis Acute exacerbation requiring diuresis and monitoring of fluid response Small fluid bolus given for dehydration, but she did not tolerate it, needed duonebs IV diuresis stopped and PO lasix resumed At discharge, resume home spironolactone and K supplementation (2) Cardiomyopathy: Status: Chronic Asessment and Plan: Chronic disease, generally worsening Continue current medication regimen (3) H/O mitral valve replacement with mechanical valve: Status: Chronic Asessment and Plan: Patient is on warfarin INR 3.8 on arrival. Trend 3.8->4.6->4.0->3.2 Regimen changed from 2.5 mg twice weekly / 5 mg 5x weekly to: warfarin 2.5 mg Mo ThSa, warfarin 5 mg TuWeFriSun (4) Type 2 diabetes mellitus: Asessment and Plan: A1C 6.9 on January 06, adequate for patient's age and comorbidities Home regimen empagliflozin, continue Correctional insulin while hospitalized (5) CKD (chronic kidney disease): Asessment and Plan: Stable chronic disease Recommend BMP monitoring at next physician visit, anticipate a creatinine bump after hospitalization and diuresis (6) Hypothyroid: Status: Chronic Asessment and Plan: Continue home regimen (7) CAD (coronary artery disease): Asessment and Plan: Continue home regimen (8) HTN (hypertension): Asessment and Plan: Continue home regimen Discharge Plan Disposition Patient Disposition: [facility]way Facility(SNF) Condition: Fair Discharge Details Reason For Visit: Acute Exacerbation of Chronic CHF Admit Date/Time: 02/09/25 19:58 Admit Provider: Dimas Faye Attending Provider: Dimas Faye Primary Care Provider: Mell Cueto [facility] Course Hospital Course: Sushma Padgett is an 84 year old woman presenting February 09 with shortness of breath, found to be in respiratory distress due to exacerbation of heart failure. She has responded well to increased diuresis and is at baseline. She can resume her regular home medication regimen. Warfarin dosing should be adjusted to 2.5 mg on Friday / / Friday, 5 mg on the other days. Home Meds and New Rx's Prescriptions: No Action zolpidem 5 mg tablet 5 mg PO QHS fluticasone propionate [Flonase Allergy Relief] 50 mcg/actuation spray,suspension 2 spray intranasal DAILY Rx Instructions: administer into each nostril albuterol sulfate 2.5 mg /3 mL (0.083 %) solution for nebulization 2.5 mg inhalation Q4H PRN fluticasone propion-salmeterol 500-50 mcg/dose blister with device 1 inh inhalation BID Jardiance 25 mg tablet 25 mg PO DAILY mv-mn [id number] acid 27 mg iron- 1 mg tablet 1 tab PO DAILY spironolactone 25 mg tablet 25 mg PO DAILY Qty: 90 3RF amiodarone [Pacerone] 200 mg tablet 200 mg PO DAILY Qty: 90 3RF ipratropium-albuterol 0.5 mg-3 mg(2.5 mg base)/3 mL solution for nebulization 3 ml INHALATION QID Patient Comments: INHALE 3 MLS 4 TIMES A DAY BY NEBULIZATION ROUTE midodrine 2.5 mg Tablet 2.5 mg PO TID Qty: 90 0RF sacubitril-valsartan [Entresto] 24-26 mg Tablet 0.5 tab PO BID Qty: 90 0RF albuterol sulfate [ProAir HFA] 90 mcg/actuation Hfa Aerosol Inhaler 2 puff inhalation QID PRN PRN cetirizine 10 mg tablet 10 mg PO QAM Patient Comments: TK 1 T PO D PRN cholecalciferol (vitamin D3) [Vitamin D3] 25 mcg (1,000 unit) tablet 1,000 unit PO QAM Patient Comments: TAKE 1 TABLET BY MOUTH ONCE DAILY atorvastatin [Lipitor] 10 mg Tablet 10 mg PO QPM potassium chloride 10 mEq tablet,ER particles/crystals 10 meq PO QAM Patient Comments: TK 1 T PO QD warfarin 5 mg tablet 2.5 - 5 mg PO DIRECTED PRN Patient Comments: TK 1 T PO D UTD Rx Instructions: 2.5 M/Th - 5 all other days alendronate 70 mg tablet 70 mg PO DIRECTED Patient Comments: TK 1 T PO WEEKLY ON AN EMPTY STOMACH WITH BIG GLASS OF WATER DONT LIE DOWN FOR AN HOUR Rx Instructions: weekly levothyroxine 75 mcg Tablet 37.5 mcg PO DAILY@0600 Qty: 30 0RF Discharge Instructions Activity:: Activity as Tolerated Equipment/Supplies:: No Equipment Needed Diet:: Normal Diet Discharge Orders Discharge Orders: Discharge Order (Routine); Ordered 02/13/25 Ordered By: Baldo Mitchell DS: Summary Time Spent with Patient providing and/or coordinating discharge services: Less than 30 minutes Status at Discharge Functional status at discharge: independent ambulation Overall status at discharge: patient is back to baseline Mental Status: mental status grossly normal Speech and Movement: speech and movement normal Mood: congruent mood Affect: normal affect Quality:SDOH Health Related Social Needs: Health related social needs risk of homeless daily act ivities Health related social needs details lives in [facility] Health related social needs details: lives in [facility] Exam Psych Mental Status: mental status grossly normal Speech and Movement: speech and movement normal Mood: congruent mood Affect: normal affect DS: Data Vitals/I&O Vitals and I&O: Vital Signs Temperature 36.9 C 02/13/25 07:33 Temperature Source Temporal Artery Scan 02/13/25 07:33 Pulse 87 02/13/25 07:33 Pulse Rhythm Irregular 02/09/25 21:02 Pulse 102 H 02/09/25 20:01 Respiratory Rate 16 02/13/25 07:33 Respiratory Effort Short of Breath, Incrsd Work of Breathing 02/09/25 21:02 Respiratory Depth Deep 02/09/25 21:02 Respiratory Pattern Irregular 02/09/25 21:02 Blood Pressure 125/70 02/13/25 08:44 Blood Pressure Mean 88 02/13/25 08:44 Blood Pressure Position Sitting 02/09/25 14:26 Pulse Oximetry 93 02/13/25 07:33 Oxygen Delivery Method Room Air 02/13/25 03:24 Oxygen Flow Rate 0 02/13/25 03:24 Pain Level 0 02/13/25 03:24 Comment rn stated that she got bp 02/13/25 07:33 Intake & Output 02/12/25 02/12/25 02/13/25 11:59 23:59 11:59 Intake Total 837 / 1077 240 / 1077 380 / 380 Output Total 900 / 1600 700 / 1600 375 / 375 Balance -63 / -523 -460 / -523 Weight 70.9 kg 70.7 kg Intake: IV Oral 837 / 1077 240 / 1077 360 / 360 Output: Urine 900 / 1600 700 / 1600 375 / 375 Other: Urine Color Straw Yellow Yellow Urine Appearance Sediment Clear Clear Urine Odor Strong Normal Comment due to void 5pm Stool Size Moderate Stool Characteristics Soft Data Completed and Pending Labs on day of discharge: Labs from last 24 hours 02/13/25 06:30 PT 29.6 H INR 3.2 H PFSH All Active Problems (Updated 02/10/25 @ 06:40 by Dimas Faye) Acute HFrEF (heart failure with reduced ejection fraction) (Acute) Deficit in activities of daily living (ADL) (Acute) Impaired instrumental activities of daily living (Acute) Advanced care planning/counseling discussion (Acute) Palliative care patient (Acute) H/O mitral valve replacement with mechanical valve (Chronic) Anemia (Chronic) Hypothyroid (Chronic) Acute heart failure with reduced ejection fraction (HFrEF, <= 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 (Acute) Cardiomyopathy (Chronic) Heart failure with reduced ejection fraction (Acute) Iron refractory iron deficiency anemia (Acute) Nonhealing nonsurgical wound with fat layer exposed (Acute) Wound of left lower extremity (Acute) Anticoagulated on Coumadin (Acute) Lesion of skin of nose (Acute) Conductive hearing loss in right ear (Acute 02/23/15) Mixed conductive and sensorineural hearing loss of right ear with restricted hearing of left ear (Acute 07/25/16) Sensorineural hearing loss (SNHL) of left ear with restricted hearing of right ear (Acute 07/25/16) Sensorineural hearing loss, bilateral (Acute 02/25/17) Medical History Aortic stenosis, moderate Severe tricuspid regurgitation Abscess Bunion Memory deficit Elevated TSH Type 2 diabetes mellitus Hypocalcemia CKD (chronic kidney disease) Facial skin lesion Hyperlipidemia Asthma CAD (coronary artery disease) A-fib HTN (hypertension) Diabetes mellitus Lactose intolerance Osteoporosis Diverticulitis Allergic rhinitis Hiatal hernia Mitral valve stenosis Insomnia Leg cramps Surgical History Status post excisional debridement (~02/2024) Left Leg Mitral valve replaced History of bladder suspension procedure History of tonsillectomy H/O adenoidectomy Family History Father , d. 60 Throat cancer Mother , d. 80 Heart disease Social History Smoking/Tobacco Use Status: Never Smoking risk assessment performed?: Yes Alcohol Intake: never Drug use: Never Substance use type: does not use Household members: none Housing: pen[facility]entiary Number of Children: 4 Do you feel safe at home: Yes Do you feel safe in your relationship?: Yes Additional Social history: . lives alone in home on [address]. son lives nearby Time Spent with Patient Time Spent with Patient: <45 minutes Time was spent: preparing to see the patient(eg.review tests), obtaining and/or reviewing separately otained hiistory, ordering medications,tests, procedures, referring, communicating with other health foster care worker, indepentently interpreting results, counseling the patient and care coordination
--- NOTE | 2025-02-13 11:34 | PTTR_ITS ---
PT Notes Visit Reasons: Acute Exacerbation of Chronic CHF Inpatient Physical Therapy Treatment Note [facility] Date: February 13, 2025 SUBJECTIVE: Patient states she slept well last night. Is agreeable to trying some ambulation today. Continues to complain of her wheezing. OBJECTIVE: BLE Edema to trunk, expiratory wheezes ? PAIN: No complaints VITALS: monitored by nsg and via telemetry Therapeutic Activities (16263h3): Direct one-on-one instruction in dynamic activities to improve functional performance. ? BED MOBILITY/TRANSFERS? Bed mobility L/R: min A Supine to EOB: min A EOB to supine: Mod assist x 1 for placement of lower extremities in bed. Verbal cues for proper hand placement for sitting from stand from front wheel walker. GAIT: Patient required min assist x 1 assuming a sit to stand position from edge of bed to front wheeled walker. Verbal cues offered for hand positioning on the walker. Patient ambulates 5 feet to bedside commode. Attempted BM but did not pass. Transition sit to stand from commode to front wheel walker with min assist x 1 ambulated 5 feet 2 bedside recliner. Perform therapeutic exercises in sitting followed by sit to stand with min assist x 1 ambulate 5 feet to bed. Transfer stand from front wheel walker to bed with contact-guard x 1. Required min assist x 1 for leg placement into hospital bed. Min assist x 1 for repositioning higher in bed. She was able to use lower extremities and bridge fashion to help push her body towards head of bed. Verbal cues for hand placement arm rest of chair for sit to stand transfer. Therapeutic procedures [id number] 15mins: Instruction in therapeutic exercises to develop strength and endurance, range of motion and flexibility. Provided skilled instruction in proper exercise performance: Provided skilled manual cues to facilitate proper muscle recruitment and/or movement pattern: Supine to sitting min A Seated marching [id number] Seated weight shifting L/R [id number] Seated LAQ [id number] Seated hip abduction [id number] Seated hip adduction 10 x 1 set with 3-second hold ? ? ASSESSMENT:?Seem to be in better spirits with participation level in physical therapy. Still hesitant to perform any distance walking secondary to her complaints of wheezing. PT informed by hospitalist that patient being discharged later today to long-term facility from where she came. PLAN: D/C PT as patient is anticipated discharge from hospital. TREATMENT CODE/TIME: [id number], [id number] (9:30-10:00) DISCHARGE RECOMMENDATION: SNF
[2025-02-13 11:47] VITALS: BP 100/62; PULSE 94; RESP 17; TEMP 37.2; O2SAT 92
--- NOTE | 2025-02-13 12:51 | NUR.NOTE ---
Attempted to give report at 1250 - no response.
--- NOTE | 2025-02-13 13:40 | NUR.NOTE ---
report given to MARE Segovia.
== END 2025-02-13 15:16 | disposition skilled nursing facility (03) | DRG 291 ==
LOC: ER 18:37 → MS 20:46
PROVIDERS: Admitting Provider Family Medicine; Emergency Provider Emergency Medicine; PCP Family Medicine; Responsible Provider Family Medicine; Visit Provider Family Medicine
DX: Z95.2 Presence of prosthetic heart valve; N18.32 Chronic kidney disease, stage 3b; E11.22 Type 2 diabetes mellitus with diabetic chronic kidney disease; E03.9 Hypothyroidism, unspecified; I25.10 Atherosclerotic heart disease of native coronary artery without angina pectoris; I13.0 Hypertensive heart and chronic kidney disease with heart failure and stage 1 through stage 4 chronic kidney disease, or unspecified chronic kidney disease; I50.43 Acute on chronic combined systolic (congestive) and diastolic (congestive) heart failure; Z59.811 Housing instability, housed, with risk of homelessness; Z79.01 Long term (current) use of anticoagulants; Z66 Do not resuscitate; Z73.89 Other problems related to life management difficulty; I42.9 Cardiomyopathy, unspecified; D50.9 Iron deficiency anemia, unspecified; H90.3 Sensorineural hearing loss, bilateral; R41.3 Other amnesia; E78.5 Hyperlipidemia, unspecified; J45.909 Unspecified asthma, uncomplicated; M81.0 Age-related osteoporosis without current pathological fracture; E73.9 Lactose intolerance, unspecified; G47.00 Insomnia, unspecified; K44.9 Diaphragmatic hernia without obstruction or gangrene; R25.2 Cramp and spasm; Z79.84 Long term (current) use of oral hypoglycemic drugs; I08.2 Rheumatic disorders of both aortic and tricuspid valves
CPT/HCPCS: 00123; 36415; 80053; 82805; 85027; 87637; 93005; 93308; 94640; 96374; 97110; 97162; 97530; 99291; 71045; 81003; 81015; 83605; 83735; 83880; 84439; 84443; 84484; 85025; 85610; 87086; 93010; 94664; 94760; 99223; 99231; 99238; J1815; J1938; J2270; J7613; J7620

== ENCOUNTER 2025-02-16 16:23 | Outpatient (REF) | payer MEDICARE, MEDICAID, SELFPAY ==
[2025-02-16 18:32] LABS: Abs Immature Grans 0.03 10^3/uL (0.0-0.06); HCT 36.4 % (36.0-46.0); HGB 11.0 g/dL (11.2-15.7); Immature Grans % 0.5 %; MCH 27.1 pg (27.0-33.0); MCHC 30.2 % (32.0-36.0); MCV 90 fL (80-95); MPV 9.9 fL (8.0-11.0); Platelet Count 296 10^3/uL (130-400); RBC 4.06 10^6/uL (3.93-5.22); RDW 19.1 % (11.7-14.6); RDW-SD 61.1 fL; WBC 6.28 10^3/uL (4.4-10.8)
[2025-02-16 18:39] LABS: Anion Gap 7.2 mmol/L (3-11); BUN 31 mg/dL (7-18); CO2 29.8 mmol/L (21.0-32.0); Calcium 8.3 mg/dL (8.5-10.1); Chloride 100 mmol/L (98-107); Estimated GFR 36.87 (mL/min/1.73m2); Glucose 185 mg/dL (74-106); Magnesium 2.4 mg/dL (1.8-2.4); NT-proBNP 19622 pg/mL (<300); Potassium 4.9 mmol/L (3.5-5.1); Sodium 137 mmol/L (136-145)
== END 2025-02-16 16:24 | disposition home or self-care (01) ==
LOC: LBN 16:23
PROVIDERS: PCP Family Medicine; Visit Provider Family Medicine
DX: I50.41 Acute combined systolic (congestive) and diastolic (congestive) heart failure (principal); N18.32 Chronic kidney disease, stage 3b
CPT/HCPCS: 80048; 83735; 83880; 85025